=== PATIENT | male | born 1935 | race Caucasian/White ===

== ENCOUNTER → 2016-09-11 | Outpatient (CLI) | payer MEDICARE ==
[~2016-09-11] MED LIST: ALBUAER3 INH; AMIO200 PO; AMIO200T PO; AMLO5TAB22 PO; ASPI325T PO; AZIT250T3 PO; CARV3.125 PO; CEPH500 PO; FERR1TAB36 PO; FERR324T4 PO; FURO1TAB60 PO; FURO40TA PO; GLEE100T PO; GLEE400T2 PO; GLIP5 PO; GLIP5TAB8 PO; INSU-118 SQ; IPRA.5I INH; LEVA750T PO; LOSA50TA PO; LOVA20TA PO; NOVOLOGSS SQ; PRED10 PO; PRED10PA PO
[2016-09-11 13:41] LABS: ALKALINE PHOSPHATASE 38 U/L (45-117); ALT (GPT) 23 U/L (12-78); TOTAL BILIRUBIN ADULT 0.4 MG/DL (0.2-1.0)
[2016-09-11 13:50] LABS: ANION GAP 5 MEQ/L (5-15); AST (GOT) 26 U/L (15-37); BICARBONATE 27.5 MEQ/L (21.0-32.0); BLOOD UREA NITROGEN 33 MG/DL (7-18); CHLORIDE 110 MEQ/L (98-107); GLOMERULAR FILTRATION RATE 24 ML/MIN (>89); GLUCOSE,FASTING 100 MG/DL (74-99); POTASSIUM 4.9 MEQ/L (3.5-5.1); SODIUM (NA) 142 MEQ/L (136-145)
== END ==
LOC: PLAB 08:36
PROVIDERS: ATTEND Nuclear Medicine Nuclear Cardiology
DX: E78.5 Hyperlipidemia, unspecified (principal); I10 Essential (primary) hypertension; E07.9 Disorder of thyroid, unspecified; I47.2 Ventricular tachycardia
CPT/HCPCS: 36415; 80053; 84439

== ENCOUNTER 2016-12-31 11:40 | Emergency (ER) | payer MEDICARE ==
[~2016-12-31] VITALS: Ht 172.7 cm; Wt 95.0 kg
[~2016-12-31 11:40] MED LIST changes: -ALBUAER3 INH; -AMIO200T PO; -AZIT250T3 PO; -FERR1TAB36 PO; -FURO1TAB60 PO; -GLEE100T PO; -GLIP5TAB8 PO; -PRED10 PO
[2016-12-31 11:45] VITALS: BP 128/66; PULSE 65; RESP 16; TEMP 97.7; O2SAT 94
[2016-12-31 12:30] LABS: AUTOMATED NEUTROPHIL # 5.3 TH/MM3 (1.8-7.7); BASOPHIL % 0.2 % (0.0-2.0); EOSINOPHIL # 0.2 TH/MM3 (0-0.4); EOSINOPHIL % 2.6 % (0.0-4.0); HEMATOCRIT 28.8 % (39.0-51.0); HEMO FLAGS DIFF FINAL; LYMPH % 32.6 % (9.0-44.0); LYMPHOCYTE # 3.1 TH/MM3 (1.0-4.8); MEAN CELL VOLUME 99.9 FL (80.0-100.0); MEAN CORPUSCULAR HEMOGLOBIN 34.2 PG (27.0-34.0); MEAN CORPUSCULAR HGB CONC 34.2 % (32.0-36.0); MONO % 8.4 % (0.0-8.0); NEUT % 56.2 % (16.0-70.0); PLATELET COUNT 206 TH/MM3 (150-450); RED BLOOD COUNT 2.89 MIL/MM3 (4.50-5.90); RED CELL DISTRIBUTION WIDTH 19.3 % (11.6-17.2); WHITE BLOOD COUNT 9.4 TH/MM3 (4.0-11.0)
[2016-12-31 12:43] LABS: INTERNATIONAL NORMALIZED RATIO 0.9 RATIO; PROTHROMBIN TIME - PATIENT 10.4 SEC (9.8-11.6)
[2016-12-31 12:47] LABS: ANION GAP 6 MEQ/L (5-15); BICARBONATE 29.8 MEQ/L (21.0-32.0); BLOOD UREA NITROGEN 33 MG/DL (7-18); CHLORIDE 105 MEQ/L (98-107); GLOMERULAR FILTRATION RATE 23 ML/MIN (>89); POTASSIUM 4.1 MEQ/L (3.5-5.1); SODIUM (NA) 141 MEQ/L (136-145)
--- NOTE | 2016-12-31 12:48 | RADRPT ---
EXAM DATE/TIME: 12/31/2016 12:27 [facility] COMPARISON: CHEST SINGLE AP, May 21, 2016, 9:40. INDICATIONS : Chest pains with pressure into upper abdomenx2 months. MEDICAL HISTORY : Myocardial infarction. Carcinoma, basal cell. SURGICAL HISTORY : Pacemaker. ENCOUNTER: Initial ACUITY: 2 months PAIN SCORE: 7/10 LOCATION: Bilateral chest FINDINGS: A single view of the chest demonstrates minimal right basilar atelectasis. Heart mildly enlarged. Lef t-sided defibrillator unchanged. Osseous structures are intact. CONCLUSION: 1. Minimal right basal atelectasis. 2. Lungs are better aerated on current study. Johnny Baron MD on December 31, 2016 at 12:44 Board Certified Radiologist. This report was verified electronically.
[2016-12-31 12:50] LABS: CREATINE KINASE 187 U/L (39-308)
--- NOTE | 2016-12-31 12:57 | PD ---
HPI Chief Complaint: Chest Pain Time Seen by Provider: 12:51 Travel History International Travel<30 days: No Contact w/Intl Traveler<30days: No Traveled to known affect area: No History of Present Illness HPI 81-year-old male that presents to the ED for evaluation of chest pain and abdominal pain. Per patient she's had this chest pain and abdominal pain for a couple months but has been worsening today. Patient is also having coughing and having some congestion issues for the weekend and he believes that this is likely aggravating the symptoms. Patient does have a significant history including CML, previous MIs with pacemaker, diabetes, hypertension, sleep apnea and COPD. Patient denies any other medical issues. Patient denies any increased swelling. She denies any urinary or bowel movement issues. Per patient the pain on the abdomen has been ongoing for a couple 6 months now but recently has been felt like it is getting worse. Patient states that he has not had any surgeries to his abdomen. Nothing makes it better or worse. Per patient pain is not constant. Per patient the pain in his chest is more on the abdomen and he points to the epigastric area most of the pain. He takes aspirin and no other blood thinner. Patient follows with Dr. Pelayo for cardiology as well as Dr. Sood for the CML. He has no allergies to medication. No other medical issues at this time. Has not taken anything for this. Per patient's his discomfort 6 out of 10. More on the epigastric area. PFSH Past Medical History Arthritis: No Asthma: No Autoimmune Disease: No Blood Disorders: No Anxiety: No Depression: No Heart Rhythm Problems: No Cancer: Yes ( (CML) LEUKEMIA/SKIN) Cardiovascular Problems: Yes ([place]) High Cholesterol: No Chemotherapy: Yes Chest Pain: Yes Congestive Heart Failure: Yes COPD: Yes Cerebrovascular Accident: No Diabetes: Yes Diminished Hearing: Yes Endocrine: No GERD: Yes Glaucoma: No Genitourinary: No Headaches: Yes Hepatitis: No Hiatal Hernia: No Hypertension: Yes Immune Disorder: No Kidney Stones: Yes Musculoskeletal: No Neurologic: No Psychiatric: No Reproductive: No Respiratory: Yes (EMPHYSEMA) Immunizations Current: No Migraines: Yes Myocardial Infarction: No Radiation Therapy: Yes Renal Failure: No Seizures: No Sickle Cell Disease: No Sleep Apnea: Yes Thyroid Disease: No Ulcer: No Past Surgical History Abdominal Surgery: No AICD: No Appendectomy: No Arteriovenous Shunt: No Cardiac Surgery: No Cholecystectomy: No Ear Surgery: No Endocrine Surgery: No Eye Surgery: No (CATARACT X3 YEARS AGO. RIGHT EYE REPAIRED LAST WK DUE TO NOT BE ABLE TO SEE) Genitourinary Surgery: No Gynecologic Surgery: No Insulin Pump: No Joint Replacement: No Oral Surgery: Yes Pacemaker: No Thoracic Surgery: Yes (LUNG BIOPSY) Other Surgery: Yes (SKIN CA EXCISION) Family History Family Hypercholesterolemia: Yes Social History Alcohol Use: No Tobacco Use: No (quit 1993) Substance Use: No Allergies-Medications (Allergen,Severity, Reaction): Coded Allergies: No Known Allergies (Verified , 09/19/15) Reported Meds & Prescriptions Reported Meds & Active Scripts Active Proair Hfa 8.5 GM Inh (Albuterol Sulfate) 90 Mcg/Act Aer 2 Puff INH Q4-6H PRN 108 mcg/actuation Azithromycin 250 Mg Tab 250 Mg PO DIRECTED Take 2 tabs (500 mg) on day 1 then 1 tab daily x 4 days. Reported Prednisone 10 Mg Tab 10 Mg PO DAILY PRN Novolog Inj (Insulin Aspart) 100 Unit/Ml Inj SQ ACHS SLIDING SCALE Amiodarone (Amiodarone HCl) 200 Mg Tab 200 Mg PO DAILY Coreg (Carvedilol) 3.125 Mg Tab 3.125 Mg PO BID Aspirin 325 Mg Tab 325 Mg PO DAILY Iron (Ferrous Sulfate) 325 Mg Tab 325 Mg PO BID Take after a meal. Lovastatin 20 Mg Tab 20 Mg PO DAILY Glipizide 5 Mg Tab 5 Mg PO DAILY Take 30 minutes before a meal Lasix (Furosemide) 40 Mg Tab 40 Mg PO DAILY Gleevec (Imatinib Mesylate) 100 Mg Tab 400 Mg PO DAILY Review of Systems Except as stated in HPI: all other systems reviewed are Neg Physical Exam Narrative GENERAL: SKIN: Warm and dry. HEAD: Atraumatic. Normocephalic. EYES: Pupils equal and round. No scleral icterus. No injection or drainage. ENT: No nasal bleeding or discharge. Mucous membranes pink and moist. Tongue is midline. No uvula deviation. NECK: Trachea midline. No JVD. CARDIOVASCULAR: Regular rate and rhythm. No murmurs, S3, S4. RESPIRATORY: No accessory muscle use. Expiratory rales heard on exam. Breath sounds equal bilaterally. GASTROINTESTINAL: Abdomen soft, tender to palpation especially with deep palpation in the epigastric area as well as the right upper quadrant, nondistended. Hepatic and splenic margins not palpable. MUSCULOSKELETAL: Extremities without clubbing, cyanosis, or edema. No obvious deformities. Full range of motion of the upper and lower extremities bilaterally. 2+ pulses bilaterally. NEUROLOGICAL: Awake and alert. No obvious cranial nerve deficits. Motor grossly within normal limits. Five out of 5 muscle strength in the arms and legs. Normal speech. PSYCHIATRIC: Appropriate mood and affect; insight and judgment normal. Data Data Last Documented VS Vital Signs Date Time Temp Pulse Resp B/P Pulse Ox O2 Delivery O2 Flow Rate FiO2 12/31/16 12:55 94 Room Air 12/31/16 11:45 97.7 65 16 128/66 Orders Electrocardiogram (12/31/16 11:47) Complete Blood Count With Diff (12/31/16 11:47) Basic Metabolic Panel (Bmp) (12/31/16 11:47) Ckmb (Isoenzyme) Profile (12/31/16 11:47) Troponin I (12/31/16 11:47) Chest, Single Ap (12/31/16 11:47) Iv Access Insert/Monitor (12/31/16 11:47) Ecg Monitoring (12/31/16 11:47) Oxygen Administration (12/31/16 11:47) Oximetry (12/31/16 11:47) Prothrombin Time / Inr (Pt) (12/31/16 11:47) B-Type Natriuretic Peptide (12/31/16 11:47) Hepatic Functional Panel (12/31/16 12:47) Lipase (12/31/16 12:47) Albuterol Neb (Albuterol Neb) (12/31/16 13:00) CKMB (12/31/16 12:03) CKMB% (12/31/16 12:03) Ct Abd/Pel W/O Iv Contrast (12/31/16 ) Labs Laboratory Tests Test 12/31/16 12:03 White Blood Count 9.4 TH/MM3 Red Blood Count 2.89 MIL/MM3 Hemoglobin 9.9 GM/DL Hematocrit 28.8 % Mean Corpuscular Volume 99.9 FL Mean Corpuscular Hemoglobin 34.2 PG Mean Corpuscular Hemoglobin 34.2 % Concent Red Cell Distribution Width 19.3 % Platelet Count 206 TH/MM3 Mean Platelet Volume 7.4 FL Neutrophils (%) (Auto) 56.2 % Lymphocytes (%) (Auto) 32.6 % Monocytes (%) (Auto) 8.4 % Eosinophils (%) (Auto) 2.6 % Basophils (%) (Auto) 0.2 % Neutrophils # (Auto) 5.3 TH/MM3 Lymphocytes # (Auto) 3.1 TH/MM3 Monocytes # (Auto) 0.8 TH/MM3 Eosinophils # (Auto) 0.2 TH/MM3 Basophils # (Auto) 0.0 TH/MM3 CBC Comment DIFF FINAL Differential Comment Prothrombin Time 10.4 SEC Prothromb Time International 0.9 RATIO Ratio Sodium Level 141 MEQ/L Potassium Level 4.1 MEQ/L Chloride Level 105 MEQ/L Carbon Dioxide Level 29.8 MEQ/L Anion Gap 6 MEQ/L Blood Urea Nitrogen 33 MG/DL Creatinine 2.65 MG/DL Estimat Glomerular Filtration 23 ML/MIN Rate Random Glucose 66 MG/DL Calcium Level 8.4 MG/DL Total Bilirubin 0.3 MG/DL Direct Bilirubin 0.1 MG/DL Indirect Bilirubin 0.2 MG/DL Aspartate Amino Transf 40 U/L (AST/SGOT) Alanine Aminotransferase 43 U/L (ALT/SGPT) Alkaline Phosphatase 40 U/L Total Creatine Kinase 187 U/L Creatine Kinase MB 3.2 NG/ML Troponin I 0.04 NG/ML B-Type Natriuretic Peptide 61 PG/ML Total Protein 6.8 GM/DL Albumin 3.5 GM/DL Lipase 368 U/L [facility] Medical Decision Making Medical Screen Exam Complete: Yes Emergency Medical Condition: Yes Medical Record Reviewed: Yes Interpretation(s) CBC & BMP Diagram 12/31/16 12:03 LFTs WNL troponin WNL CKMB WNL Last Impressions Chest X-Ray 12/31/16 1147 Signed Impressions: Service Date/Time: Saturday, December 31, 2016 12:27 - CONCLUSION: 1. Minimal right basal atelectasis. 2. Lungs are better aerated on current study. Johnny Baron MD CT abd negative other than AAA of 3.5 cm EKG shows sinus rhythm with no sign of acute ischemia or arrhythmia read by me and attending. Lipase within normal limits Differential Diagnosis Abdominal pain versus chronic abdominal pain versus STEMI versus an STEMI versus chest pain versus a typical chest pain versus pancreatitis versus COPD versus acute on chronic pain Narrative Course 81-year-old male that presents to the ED for evaluation of chest pain and epigastric pain. Patient was properly examined and was found to have signs and symptoms of unclear etiology. Patient partially has multiple comorbidities and disease. This time I recommend labs and imaging. Patient is in agreement with this plan. Patient was given a breathing treatment here secondary to his wheezing/rales. Patient took an aspirin today. Labs and imaging showed no sign of acute disease. My attending Dr. Weiss evaluated the patient with me and was now off all findings and imaging and agrees the patient can be discharged home. Patient was discharged home with albuterol inhaler, azithromycin to cover for infection etiology for his new onset of cough. Most of his symptoms appeared to be chronic. Do recommend close follow-up with Dr. Pelayo as well as Dr. Sood primary care doctor for the aneurysm. See ED worsening symptoms. Diagnosis Primary Impression: Bronchitis Additional Impression: Atypical chest pain Patient Instructions: General Instructions Additional Instructions: Take medications as prescribed. Follow-up with your doctor this week. Especially with tax technician Dr. Pelayo. See ED for worsening symptoms. Take Tylenol for pain as needed. Your CT here show an aneurysm on your abdomen that is 3.5 cm. Please follow-up with your doctor for this as this will likely need monitoring and better treatment of your diabetes and hypertension. Med/Other Pt SpecificInfo: Prescription(s) given Scripts Albuterol 8.5 GM Inh (Proair Hfa 8.5 GM Inh)90 Mcg/Act Aer2 Puff INH Q4-6H PRN ( SHORTNESS OF BREATH) #1 INHALER 108 mcg/actuation Prov:Flip Candelaria MD 12/31/16 Azithromycin 250 Mg [id number] Mg PO DIRECTED #6 TAB Take 2 tabs (500 mg) on day 1 then 1 tab daily x 4 days. Prov:Flip Candelaria MD 12/31/16 Disposition: 01 DISCHARGE HOME Condition: Stable Jacinto Mejia December 31, 2016 12:57
[2016-12-31] MEDS ORDERED: RESP: ALBUTEROL 2.5 MG/3 ML NEB (SCH) INH ONE (13:00)
[2016-12-31 13:03] LABS: CKMB 3.2 NG/ML (0.5-3.6)
[2016-12-31] MEDS ORDERED: GLEE100T PO (13:24)
[2016-12-31] MEDS ORDERED: FURO1TAB60 PO (13:24)
[2016-12-31] MEDS ORDERED: NOVOLOGSS SQ (13:24)
[2016-12-31] MEDS ORDERED: ASPI325T PO (13:24)
[2016-12-31] MEDS ORDERED: CARV3.125 PO (13:24)
[2016-12-31] MEDS ORDERED: AMIO200T PO (13:24)
[2016-12-31] MEDS ORDERED: LOVA20TA PO (13:24)
[2016-12-31] MEDS ORDERED: FERR1TAB36 PO (13:24)
[2016-12-31] MEDS ORDERED: GLIP5TAB8 PO (13:24)
[2016-12-31] MEDS ORDERED: PRED10 PO (13:27)
[2016-12-31 13:32] LABS: INDIRECT BILIRUBIN 0.2 MG/DL (0.0-0.8); TOTAL BILIRUBIN ADULT 0.3 MG/DL (0.2-1.0)
--- NOTE | 2016-12-31 14:06 | RADRPT ---
EXAM DATE/TIME: 12/31/2016 13:38 [facility] COMPARISON: No previous studies available for comparison. INDICATIONS : Generalized abdominal pain. ORAL CONTRAST: No oral contrast ingested. RADIATION DOSE: 15.95 CTDIvol (mGy) MEDICAL HISTORY : Cardiovascular disease. Hypertension. Leukemia.Diabetes, CHF, SURGICAL HISTORY : Pacemaker. ENCOUNTER: Initial ACUITY: 1 day PAIN SCALE: 3/10 LOCATION: TECHNIQUE: Volumetric scanning of the abdomen and pelvis was performed. Using automated exposure control and ad justment of the mA and/or kV according to patient size, radiation dose was kept as low as reasonably achievable to obtain optimal diagnostic quality images. FINDINGS: LOWER LUNGS: There is minimal scarring at the right lung base. LIVER: Homogeneous density without lesion. There is no dilation of the biliary tree. The tiny gallstones.. SPLEEN: Normal size without lesion. PANCREAS: Within normal limits. KIDNEYS: Normal in size and shape. There is no mass, stone, or hydronephrosis. ADRENAL GLANDS: Within normal limits. VASCULAR: Dense atherosclerotic calcifications involving abdominal aorta and branch vessels. Mild aneurysmal di latation of the distal abdominal aorta to a diameter of 3.5 cm. BOWEL/MESENTERY: Distal colonic diverticulosis. No abnormal dilatation, wall thickening or inflammatory change. No ani e fluid. ABDOMINAL WALL: Within normal limits. RETROPERITONEUM: There is no lymphadenopathy. BLADDER: No wall thickening or mass. REPRODUCTIVE: Within normal limits. INGUINAL: There is no lymphadenopathy or hernia. MUSCULOSKELETAL: Within normal limits for patient age. CONCLUSION: 3.5 cm abdominal aortic aneurysm. Tiny gallstones. Colonic diverticulosis. No definite acute CT findings. Alli Teague MD on December 31, 2016 at 13:58 Board Certified Radiologist. This report was verified electronically.
[2016-12-31] MEDS ORDERED: AZIT250T3 PO (14:14)
[2016-12-31] MEDS ORDERED: ALBUAER3 INH (14:14)
--- NOTE | 2016-12-31 14:30 | PD ---
Data Data Last Documented VS Vital Signs Date Time Temp Pulse Resp B/P Pulse Ox O2 Delivery O2 Flow Rate FiO2 12/31/16 12:55 94 Room Air 12/31/16 11:45 97.7 65 16 128/66 Orders Electrocardiogram (12/31/16 11:47) Complete Blood Count With Diff (12/31/16 11:47) Basic Metabolic Panel (Bmp) (12/31/16 11:47) Ckmb (Isoenzyme) Profile (12/31/16 11:47) Troponin I (12/31/16 11:47) Chest, Single Ap (12/31/16 11:47) Iv Access Insert/Monitor (12/31/16 11:47) Ecg Monitoring (12/31/16 11:47) Oxygen Administration (12/31/16 11:47) Oximetry (12/31/16 11:47) Prothrombin Time / Inr (Pt) (12/31/16 11:47) B-Type Natriuretic Peptide (12/31/16 11:47) Hepatic Functional Panel (12/31/16 12:47) Lipase (12/31/16 12:47) Albuterol Neb (Albuterol Neb) (12/31/16 13:00) CKMB (12/31/16 12:03) CKMB% (12/31/16 12:03) Ct Abd/Pel W/O Iv Contrast (12/31/16 ) Labs Laboratory Tests Test 12/31/16 12:03 White Blood Count 9.4 TH/MM3 Red Blood Count 2.89 MIL/MM3 Hemoglobin 9.9 GM/DL Hematocrit 28.8 % Mean Corpuscular Volume 99.9 FL Mean Corpuscular Hemoglobin 34.2 PG Mean Corpuscular Hemoglobin 34.2 % Concent Red Cell Distribution Width 19.3 % Platelet Count 206 TH/MM3 Mean Platelet Volume 7.4 FL Neutrophils (%) (Auto) 56.2 % Lymphocytes (%) (Auto) 32.6 % Monocytes (%) (Auto) 8.4 % Eosinophils (%) (Auto) 2.6 % Basophils (%) (Auto) 0.2 % Neutrophils # (Auto) 5.3 TH/MM3 Lymphocytes # (Auto) 3.1 TH/MM3 Monocytes # (Auto) 0.8 TH/MM3 Eosinophils # (Auto) 0.2 TH/MM3 Basophils # (Auto) 0.0 TH/MM3 CBC Comment DIFF FINAL Differential Comment Prothrombin Time 10.4 SEC Prothromb Time International 0.9 RATIO Ratio Sodium Level 141 MEQ/L Potassium Level 4.1 MEQ/L Chloride Level 105 MEQ/L Carbon Dioxide Level 29.8 MEQ/L Anion Gap 6 MEQ/L Blood Urea Nitrogen 33 MG/DL Creatinine 2.65 MG/DL Estimat Glomerular Filtration 23 ML/MIN Rate Random Glucose 66 MG/DL Calcium Level 8.4 MG/DL Total Bilirubin 0.3 MG/DL Direct Bilirubin 0.1 MG/DL Indirect Bilirubin 0.2 MG/DL Aspartate Amino Transf 40 U/L (AST/SGOT) Alanine Aminotransferase 43 U/L (ALT/SGPT) Alkaline Phosphatase 40 U/L Total Creatine Kinase 187 U/L Creatine Kinase MB 3.2 NG/ML Troponin I 0.04 NG/ML B-Type Natriuretic Peptide 61 PG/ML Total Protein 6.8 GM/DL Albumin 3.5 GM/DL Lipase 368 U/L MDM Supervised Visit with ROXANNA: Yes Narrative Course The history, exam, and medical decision-making in the associated mid-level provider note were completed with my assistance. I reviewed and agree with the findings presented. I attest that I had a [id number] encounter with the patient on the same day, and personally performed and documented my assessment and findings in the medical record. *My assessment and Findings: 81-year-old man, presents with abdominal pain in the setting of URI and cough. The bowel pain is been ongoing for some time but worse over the past couple days. Exam was fairly benign. He said diverticulitis before. He's had some constipation in the past but had abdominal with this morning it was fairly normal. No diarrhea. One episode of vomiting earlier. was sick with cough cold symptoms. Looks well now. He has a known small AAA. We'll recommend outpatient follow-up. Diagnosis Primary Impression: Bronchitis Additional Impression: Atypical chest pain Patient Instructions: General Instructions Additional Instruction: Take medications as prescribed. Follow-up with your doctor this week. Especially with edge runner Dr. Pelayo. See ED for worsening symptoms. Take Tylenol for pain as needed. Your CT here show an aneurysm on your abdomen that is 3.5 cm. Please follow-up with your doctor for this as this will likely need monitoring and better treatment of your diabetes and hypertension. Scripts Albuterol 8.5 GM Inh (Proair Hfa 8.5 GM Inh)90 Mcg/Act Aer2 Puff INH Q4-6H PRN ( SHORTNESS OF BREATH) #1 INHALER 108 mcg/actuation Prov:Flip Candelaria MD 12/31/16 Azithromycin 250 Mg [id number] Mg PO DIRECTED #6 TAB Take 2 tabs (500 mg) on day 1 then 1 tab daily x 4 days. Prov:Flip Candelaria MD 12/31/16 Disposition: 01 DISCHARGE HOME Condition: Stable Flip Candelaria MD December 31, 2016 14:30
[2016-12-31 15:26] VITALS: BP 127/62; PULSE 60; RESP 16; O2SAT 96
--- NOTE | 2016-12-31 20:04 | EKG ---
Date Performed: 12/31/2016 Time Performed: 11:56:16 PTAGE: 81 years EKG: SINUS BRADYCARDIA MARKED LEFT AXIS DEVIATION LEFT BUNDLE BRANCH BLOCK ABNORMAL ECG PREVIOUS TRACING : 05/22/2016 03.34 Compared to the previous tracing rate slower DOCTOR: Maggie Rosas Interpretating Date/Time 12/31/2016 20:03:43
== END 2016-12-31 15:35 | disposition home or self-care (01) ==
LOC: NEPE 11:40
DX: J40 Bronchitis, not specified as acute or chronic (principal); R07.89 Other chest pain; J43.9 Emphysema, unspecified; I10 Essential (primary) hypertension; E11.9 Type 2 diabetes mellitus without complications; I50.9 Heart failure, unspecified; C92.10 Chronic myeloid leukemia, BCR/ABL-positive, not having achieved remission; Z79.899 Other long term (current) drug therapy; Z79.82 Long term (current) use of aspirin; Z79.4 Long term (current) use of insulin; Z87.442 Personal history of urinary calculi
CPT/HCPCS: 71010; 74176; 80048; 80076; 82550; 82552; 83690; 83880; 84484; 85025; 85610; 93005; 94664; 99285; J7613

== ENCOUNTER → 2017-01-16 | Outpatient (CLI) | payer MEDICARE ==
[~2017-01-16] MED LIST changes: +ALBUAER3 INH; +AMIO200T PO; +AZIT250T3 PO; +FERR1TAB36 PO; +FURO1TAB60 PO; +GLEE100T PO; +GLIP5TAB8 PO; +PRED10 PO
[2017-01-16 13:37] LABS: ANION GAP 9 MEQ/L (5-15); BICARBONATE 27.1 MEQ/L (21.0-32.0); BLOOD UREA NITROGEN 21 MG/DL (7-18); CHLORIDE 107 MEQ/L (98-107); POTASSIUM 4.3 MEQ/L (3.5-5.1); SODIUM (NA) 143 MEQ/L (136-145)
[2017-01-16 13:38] LABS: AST (GOT) 32 U/L (15-37); GLOMERULAR FILTRATION RATE 28 ML/MIN (>89); GLUCOSE,FASTING 109 MG/DL (74-99)
[2017-01-16 13:45] LABS: ALKALINE PHOSPHATASE 40 U/L (45-117); ALT (GPT) 23 U/L (12-78); HDL CHOLESTEROL 35.3 MG/DL (40.0-60.0); LDL CHOLESTEROL 63 MG/DL (0-99); TOTAL BILIRUBIN ADULT 0.4 MG/DL (0.2-1.0)
[2017-01-16 14:08] LABS: MICRO ALBUMIN RANDOM URINE RAW 6.4 MG/L (0.0-30.0)
[2017-01-16 19:26] LABS: HEMOGLOBIN A1a 1.5 %; HEMOGLOBIN A1b 2.2 %; HEMOGLOBIN LA1C 2.2 %; HEMOGLOBIN P3 6.2 %
== END ==
LOC: PLAB 08:27
PROVIDERS: ATTEND Family Medicine
DX: E78.5 Hyperlipidemia, unspecified (principal); E11.9 Type 2 diabetes mellitus without complications
CPT/HCPCS: 36415; 80053; 80061; 82043; 83036

== ENCOUNTER → 2017-04-01 | Outpatient (CLI) | payer MEDICARE ==
[~2017-04-01] MED LIST changes: -AMIO200 PO; -AMLO5TAB22 PO; -CEPH500 PO; -FERR324T4 PO; -FURO40TA PO; -GLEE400T2 PO; -GLIP5 PO; -INSU-118 SQ; -IPRA.5I INH; -LEVA750T PO; -LOSA50TA PO; -PRED10PA PO
[2017-04-01 18:10] LABS: HEMOGLOBIN A1a 1.1 %; HEMOGLOBIN A1b 1.8 %; HEMOGLOBIN Ao 84.9 %; HEMOGLOBIN LA1C 2.1 %; HEMOGLOBIN P3 5.6 %
[2017-04-01 18:28] LABS: MICRO ALBUMIN RANDOM URINE RAW 18.9 MG/L (0.0-30.0)
== END ==
LOC: PLAB 08:38
PROVIDERS: ATTEND Family Medicine
DX: E11.9 Type 2 diabetes mellitus without complications (principal)
CPT/HCPCS: 36415; 82043; 83036

== ENCOUNTER 2017-06-08 07:43 | Observation (INO) | payer MEDICARE ==
[2017-06-08] VITALS (7 sets, daily range): BP systolic 130–149; BP diastolic 63–67; PULSE 45–55; RESP 16–18; TEMP 97.5–98; O2SAT 93–100
[~2017-06-08] VITALS: Ht 177.8 cm; Wt 96.0 kg
[2017-06-08] MEDS ORDERED: LOSA25TA PO (07:55)
[2017-06-08] MEDS ORDERED: MORPHINE SULFATE 4 MG/ML INJ IV PUSH ONE ×2 (08:00→10:15)
[2017-06-08] MEDS ORDERED: ONDANSETRON HCL 4 MG/2 ML VIAL IV PUSH ONE (08:00)
--- NOTE | 2017-06-08 08:07 | PD ---
HPI Chief Complaint: Pain: Acute or Chronic Time Seen by Provider: 07:47 Travel History International Travel<30 days: No Contact w/Intl Traveler<30days: No Traveled to known affect area: No History of Present Illness HPI The patient is a 82-year-old male who presents to the emergency department via EMS for right hip pain. The patient states he developed right hip pain several days ago while watching TV. The hip pain has progressed, is worsen movement, but is present at rest. He has spasms located lateral aspect of the right hip. He denies any trauma or falls recently. He is able to bear weight, however, this morning was unable to get out of the chair and ambulate secondary to the pain. He denies any previous history of pelvic fractures or hip fractures. The patient does have a history of CML. He denies any known history of pathologic fractures. He denies any numbness or tingling of the right lower extremity. Patient's symptoms are moderate, exacerbated by movement weightbearing, and there are no current alleviating factors. PFSH Past Medical History Arthritis: No Asthma: No Autoimmune Disease: No Blood Disorders: No Anxiety: No Depression: No Heart Rhythm Problems: No Cancer: Yes ( (CML) LEUKEMIA/SKIN) Cardiovascular Problems: Yes High Cholesterol: No Chemotherapy: Yes Chest Pain: Yes Congestive Heart Failure: Yes COPD: Yes Cerebrovascular Accident: No Diabetes: Yes Patient Takes Glucophage: Yes Diminished Hearing: No Endocrine: No GERD: Yes Glaucoma: No Genitourinary: No Headaches: Yes Hepatitis: No Hiatal Hernia: No Hypertension: Yes Immune Disorder: No Kidney Stones: Yes Medical other: Yes (reflux) Musculoskeletal: No Neurologic: No Psychiatric: No Reproductive: No Respiratory: Yes (EMPHYSEMA) Immunizations Current: No Migraines: Yes Myocardial Infarction: No Radiation Therapy: Yes Renal Failure: No Seizures: No Sickle Cell Disease: No Sleep Apnea: Yes Thyroid Disease: No Ulcer: No Past Surgical History Abdominal Surgery: No AICD: No Appendectomy: No Arteriovenous Shunt: No Cardiac Surgery: No Cholecystectomy: No Ear Surgery: No Endocrine Surgery: No Eye Surgery: Yes (CATARACT X3 YEARS AGO. RIGHT EYE REPAIRED LAST WK DUE TO NOT BE ABLE TO SEE) Genitourinary Surgery: No Gynecologic Surgery: No Insulin Pump: No Joint Replacement: No Oral Surgery: Yes Pacemaker: No Thoracic Surgery: Yes (LUNG BIOPSY) Other Surgery: Yes (SKIN CA EXCISION) Family History Family Hypercholesterolemia: Yes Social History Alcohol Use: No Tobacco Use: No Substance Use: No Allergies-Medications (Allergen,Severity, Reaction): Coded Allergies: No Known Allergies (Verified , 09/19/15) Reported Meds & Prescriptions Reported Meds & Active Scripts Active Proair Hfa 8.5 GM Inh (Albuterol Sulfate) 90 Mcg/Act Aer 2 Puff INH Q4-6H PRN 108 mcg/actuation Reported Losartan (Losartan Potassium) 25 Mg Tab 25 Mg PO DAILY Prednisone 10 Mg Tab 10 Mg PO DAILY PRN Amiodarone (Amiodarone HCl) 200 Mg Tab 200 Mg PO DAILY Coreg (Carvedilol) 3.125 Mg Tab 3.125 Mg PO BID Aspirin 325 Mg Tab 325 Mg PO DAILY Lovastatin 20 Mg Tab 20 Mg PO DAILY Glipizide 5 Mg Tab 5 Mg PO DAILY Take 30 minutes before a meal Lasix (Furosemide) 40 Mg Tab 40 Mg PO DAILY Gleevec (Imatinib Mesylate) 100 Mg Tab 400 Mg PO DAILY Review of Systems Except as stated in HPI: all other systems reviewed are Neg General / Constitutional: No: Fever Cardiovascular: No: Chest Pain or Discomfort Respiratory: No: Shortness of Breath Gastrointestinal: No: Nausea, Vomiting, Abdominal Pain Musculoskeletal: Positive: Limited ROM, Edema, Pain Neurologic: No: Paresthesia, Sensory Disturbance Physical Exam Narrative GENERAL: Awake, alert, pleasant 82-year-old male who appears his stated age and is in no acute respiratory distress. SKIN: Focused skin assessment warm/dry. HEAD: Atraumatic. Normocephalic. EYES: No injection or drainage. ENT: No nasal bleeding or discharge. Mucous membranes pink and moist. NECK: Trachea midline. No JVD. CARDIOVASCULAR: Regular rate and rhythm. No murmur appreciated. RESPIRATORY: No accessory muscle use. Clear to auscultation. Breath sounds equal bilaterally. GASTROINTESTINAL: Abdomen soft, non-tender, nondistended. No rebound tenderness. MUSCULOSKELETAL: No obvious deformities. Tenderness to palpation lateral aspect of the right hip. Doppler dorsalis pedal pulse on the right present. Pitting edema the lower exam is bilaterally. Limited ability to flex the hip and knee on the right secondary to pain. Back: No tenderness of the midline of the thoracic or lumbar vertebrae. No tenderness of the right sacroiliac. NEUROLOGICAL: Awake and alert. No obvious cranial nerve deficits. Motor grossly within normal limits. Normal speech. Sensation is intact of the medial , lateral, dorsal aspect of the right foot. PSYCHIATRIC: Appropriate mood and affect; insight and judgment normal. Data Data Last Documented VS Vital Signs Date Time Temp Pulse Resp B/P (MAP) Pulse Ox O2 Delivery O2 Flow Rate FiO2 06/08/17 07:50 52 17 06/08/17 07:48 97.7 143/65 (91) 93 Orders Orders Hip, Uni(Ap&Lat) W Ap Pelvis (06/08/17 ) Morphine Inj (Morphine Inj) (06/08/17 08:00) Ondansetron Inj (Zofran Inj) (06/08/17 08:00) Complete Blood Count With Diff (06/08/17 08:07) Comprehensive Metabolic Panel (06/08/17 08:07) Ct Pelvis W/O Iv Contrast (06/08/17 ) Ketorolac Inj (Toradol Inj) (06/08/17 08:45) Labs Laboratory Tests Test 06/08/17 08:15 White Blood Count 6.7 TH/MM3 Red Blood Count 2.74 MIL/MM3 Hemoglobin 10.2 GM/DL Hematocrit 29.7 % Mean Corpuscular Volume 108.4 FL Mean Corpuscular Hemoglobin 37.3 PG Mean Corpuscular Hemoglobin Concent 34.4 % Red Cell Distribution Width 14.7 % Platelet Count 225 TH/MM3 Mean Platelet Volume 7.7 FL Neutrophils (%) (Auto) 53.8 % Lymphocytes (%) (Auto) 32.8 % Monocytes (%) (Auto) 7.7 % Eosinophils (%) (Auto) 4.7 % Basophils (%) (Auto) 1.0 % Neutrophils # (Auto) 3.6 TH/MM3 Lymphocytes # (Auto) 2.2 TH/MM3 Monocytes # (Auto) 0.5 TH/MM3 Eosinophils # (Auto) 0.3 TH/MM3 Basophils # (Auto) 0.1 TH/MM3 CBC Comment DIFF FINAL Differential Comment Blood Urea Nitrogen 34 MG/DL Creatinine 2.96 MG/DL Random Glucose 138 MG/DL Total Protein 6.5 GM/DL Albumin 3.4 GM/DL Calcium Level 8.4 MG/DL Alkaline Phosphatase 37 U/L Aspartate Amino Transf (AST/SGOT) 33 U/L Alanine Aminotransferase (ALT/SGPT) 36 U/L Total Bilirubin 0.4 MG/DL Sodium Level 140 MEQ/L Potassium Level 4.1 MEQ/L Chloride Level 107 MEQ/L Carbon Dioxide Level 25.3 MEQ/L Anion Gap 8 MEQ/L Estimat Glomerular Filtration Rate 21 ML/MIN [facility] Medical Decision Making Medical Screen Exam Complete: Yes Emergency Medical Condition: Yes Medical Record Reviewed: Yes Interpretation(s) Last Impressions Hip and Pelvis X-Ray 06/08/17 0000 Signed Impressions: Service Date/Time: Thursday, June 08, 2017 08:24 - CONCLUSION: 1. No acute fracture or dislocation. 2. Degenerative changes involving the hips and lower lumbar spine. Max Briggs MD Laboratory Tests Test 06/08/17 08:15 White Blood Count 6.7 TH/MM3 Red Blood Count 2.74 MIL/MM3 Hemoglobin 10.2 GM/DL Hematocrit 29.7 % Mean Corpuscular Volume 108.4 FL Mean Corpuscular Hemoglobin 37.3 PG Mean Corpuscular Hemoglobin Concent 34.4 % Red Cell Distribution Width 14.7 % Platelet Count 225 TH/MM3 Mean Platelet Volume 7.7 FL Neutrophils (%) (Auto) 53.8 % Lymphocytes (%) (Auto) 32.8 % Monocytes (%) (Auto) 7.7 % Eosinophils (%) (Auto) 4.7 % Basophils (%) (Auto) 1.0 % Neutrophils # (Auto) 3.6 TH/MM3 Lymphocytes # (Auto) 2.2 TH/MM3 Monocytes # (Auto) 0.5 TH/MM3 Eosinophils # (Auto) 0.3 TH/MM3 Basophils # (Auto) 0.1 TH/MM3 CBC Comment DIFF FINAL Differential Comment Blood Urea Nitrogen 34 MG/DL Creatinine 2.96 MG/DL Random Glucose 138 MG/DL Total Protein 6.5 GM/DL Albumin 3.4 GM/DL Calcium Level 8.4 MG/DL Alkaline Phosphatase 37 U/L Aspartate Amino Transf (AST/SGOT) 33 U/L Alanine Aminotransferase (ALT/SGPT) 36 U/L Total Bilirubin 0.4 MG/DL Sodium Level 140 MEQ/L Potassium Level 4.1 MEQ/L Chloride Level 107 MEQ/L Carbon Dioxide Level 25.3 MEQ/L Anion Gap 8 MEQ/L Estimat Glomerular Filtration Rate 21 ML/MIN CT the pelvis reveals no acute fracture or dislocation. Degenerative changes involving the lower lumbar spine. Uncomplicated sigmoid diverticulosis. Distal abdominal aortic aneurysm measured 3.7 cm AP by 3.7 cm transverse. Differential Diagnosis Differential diagnosis includes fracture, dislocation, muscle spasm, sprain, strain, radiculopathy, pathologic fracture. Narrative Course IV was established, labs are drawn and sent, and the patient was placed on cardiac telemetry monitoring and continuous pulse oximetry monitoring. 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 X-ray of the pelvis and right hip were obtained. X-ray of the pelvis and right hip was unremarkable except for degenerative changes, therefore, CT pelvis without IV contrast was ordered. Creatinine was elevated at 2.96, previous ones appear to be 2.4-2.41. Hemoglobin was at 10, this appears to be his baseline. The patient continued to complain of pain, therefore, was administered 1 dose of Toradol [address] of the pelvis reveals distal abdominal aortic aneurysm 3.7 x 3.7, no fracture or dislocation. The patient had morphine and Toradol, continue to complain of pain. We attempted a trial of ambulation, the patient was unable to get up and mobilize out of the bed much less ambulate. The states she is unable to take care of the patient at home if he is unable to ambulate. I had a discussion with the patient regarding penitentiary facility or [facility], the patient does not want to go to a [facility]. The patient will be 23 hour observation and physical therapy evaluation, he may need a walker, home health care nursing, or penitentiary facility for short term rehabilitation. The patient's primary physician is Dr. Eloina Black, therefore, the on-call medical service was paged for admission. Physician Communication Physician Communication The on-call medical service was paged for 23 hour observation. Diagnosis Primary Impression: Right hip pain Additional Impression: Inability to ambulate due to right hip Admitting Information Admitting Physician Requests: Observation Condition: Stable Wang Peralta MD Jun 08, 2017 08:07
[2017-06-08] MEDS ORDERED: KETOROLAC TROMETHAMINE 30 MG/ML (IVP) VIAL IV PUSH ONE (08:45)
[2017-06-08 08:48] LABS: AUTOMATED NEUTROPHIL # 3.6 TH/MM3 (1.8-7.7); BASOPHIL # 0.1 TH/MM3 (0-0.2); EOSINOPHIL # 0.3 TH/MM3 (0-0.4); EOSINOPHIL % 4.7 % (0.0-4.0); HEMATOCRIT 29.7 % (39.0-51.0); HEMOGLOBIN 10.2 GM/DL (13.0-17.0); LYMPH % 32.8 % (9.0-44.0); LYMPHOCYTE # 2.2 TH/MM3 (1.0-4.8); MEAN CELL VOLUME 108.4 FL (80.0-100.0); MEAN CORPUSCULAR HEMOGLOBIN 37.3 PG (27.0-34.0); MEAN CORPUSCULAR HGB CONC 34.4 % (32.0-36.0); MEAN PLATELET VOLUME 7.7 FL (7.0-11.0); MONO % 7.7 % (0.0-8.0); MONOCYTE # 0.5 TH/MM3 (0-0.9); NEUT % 53.8 % (16.0-70.0); PLATELET COUNT 225 TH/MM3 (150-450); RED BLOOD COUNT 2.74 MIL/MM3 (4.50-5.90); RED CELL DISTRIBUTION WIDTH 14.7 % (11.6-17.2); WHITE BLOOD COUNT 6.7 TH/MM3 (4.0-11.0)
--- NOTE | 2017-06-08 08:49 | RADRPT ---
EXAM DATE/TIME: 06/08/2017 08:24 [facility] COMPARISON: No previous studies available for comparison. INDICATIONS : Right hip pain, denies injury MEDICAL HISTORY : Cardiovascular disease. Hypertension. Leukemia. Diabetes, CHF, SURGICAL HISTORY : Pacemaker. ENCOUNTER: Initial ACUITY: 3 days PAIN SCORE: 10/10 LOCATION: Right Hip FINDINGS: Degenerative changes are noted involving the hip joints and lower lumbar spine. There is no acute fr acture or dislocation of the right hip. CONCLUSION: 1. No acute fracture or dislocation. 2. Degenerative changes involving the hips and lower lumbar spine. Max Briggs MD on June 08, 2017 at 8:45 Board Certified Radiologist. This report was verified electronically.
[2017-06-08 09:10] LABS: ALBUMIN 3.4 GM/DL (3.4-5.0); AST (GOT) 33 U/L (15-37); BICARBONATE 25.3 MEQ/L (21.0-32.0); BLOOD UREA NITROGEN 34 MG/DL (7-18); CALCIUM 8.4 MG/DL (8.5-10.1); CHLORIDE 107 MEQ/L (98-107); CREATININE 2.96 MG/DL (0.60-1.30); GLOMERULAR FILTRATION RATE 21 ML/MIN (>89); GLUCOSE,RANDOM 138 MG/DL (74-106); SODIUM (NA) 140 MEQ/L (136-145)
[2017-06-08 09:12] LABS: ALT (GPT) 36 U/L (12-78)
[2017-06-08 09:13] LABS: ALKALINE PHOSPHATASE 37 U/L (45-117); TOTAL BILIRUBIN ADULT 0.4 MG/DL (0.2-1.0); TOTAL PROTEIN 6.5 GM/DL (6.4-8.2)
--- NOTE | 2017-06-08 09:53 | RADRPT ---
EXAM DATE/TIME: 06/08/2017 09:29 [facility] COMPARISON: No previous studies available for comparison. INDICATIONS : Right hip pain for four days. ORAL CONTRAST: No oral contrast ingested. RADIATION DOSE: 22.31 CTDIvol (mGy) MEDICAL HISTORY : Renal calculi. Leukemia. diabetes SURGICAL HISTORY : left knee surgery ENCOUNTER: Initial ACUITY: 4 - 6 days PAIN SCALE: 9/10 LOCATION: Right hip TECHNIQUE: Volumetric scanning of the pelvis was performed. Using automated exposure control and adjustment of the mA and/or kV according to patient size, radiation dose was kept as low as reasonably achievable t o obtain optimal diagnostic quality images. DICOM format image data is available electronically for review and comparison. FINDINGS: BOWEL/MESENTERY: Uncomplicated sigmoid diverticulosis. BLADDER: There is no wall thickening or mass. RETROPERITONEUM: There is no lymphadenopathy. Distal abdominal aortic aneurysm is noted measuring 3.7 cm x 3.7 cm. REPRODUCTIVE: Within normal limits. INGUINAL: There is no lymphadenopathy or hernia. MUSCULOSKELETAL: Degenerative changes are noted involving the lower lumbar spine. No acute fracture or dislocation of the hips is noted. CONCLUSION: 1. No acute fracture or dislocation. 2. Degenerative changes involving the lower lumbar spine. 3. Uncomplicated sigmoid diverticulosis. 4. Distal abdominal aortic aneurysm measuring 3.7 cm AP by 3.7 cm transverse. Max Briggs MD on June 08, 2017 at 9:47 Board Certified Radiologist. This report was verified electronically.
[2017-06-08] MEDS ORDERED: MAGNESIUM HYDROXIDE SUSP 30 ML CUP PO PRN (10:45)
[2017-06-08] MEDS ORDERED: LACTULOSE SYRUP 20 GM/30 ML CUP PO PRN (10:45)
[2017-06-08] MEDS ORDERED: BISACODYL 10 MG SUPP RECTAL PRN (10:45)
[2017-06-08] MEDS ORDERED: ACETAMINOPHEN/HYDROcodone 325 MG/5 MG TAB PO PRN (10:45)
[2017-06-08] MEDS ORDERED: SODIUM CHLORIDE 0.9% FLUSH 10 ML FLUSH IV FLUSH PRN (10:45)
[2017-06-08] MEDS ORDERED: cloNIDine HCL 0.1 MG TAB PO PRN (10:45)
[2017-06-08] MEDS ORDERED: SENNOSIDES 8.6 MG TAB PO PRN (10:45)
[2017-06-08] MEDS ORDERED: NALOXONE HCL 0.4 MG/ML AMP IV PUSH PRN (10:45)
[2017-06-08] MEDS ORDERED: ACETAMINOPHEN 325 MG TAB PO PRN (10:45)
--- NOTE | 2017-06-08 10:50 | HHI.HP ---
[facility] Service Family Medicine Primary Care Physician Eloina Black, DO Admission Diagnosis right hip pain, inability to ambulate Diagnoses: International Travel<30 Days: No Contact w/Intl Traveler<30days: No Known Affected Area: No History of Present Illness Mr. Tabares is a 82yo white male with a PMH of DM and HTN presenting with right hip pain. He states that this started 2 days ago when he went out to dinner he noticed that his right hip hurt a little, but was tolerable. Last night he was watching TV, when he realized he couldn't get out of his chair. Then this morning, he had to use the bathroom and could not get out of bed. He called an ambulance and had to be carried out. He says he is never experienced these symptoms before. He's never had any issues with any other joints. No changes in activity. Of note, 3 days ago he slipped and nearly fell while putting water underneath the cart at [facility], but caught himself. When he was catching himself he twisted to the right. He did not hit any part of his body. He usually walks with a cane. Describes the pain as a 10 out of 10 in located deep in his right lateral hip with no radiation. Worse with movement, slightly better with pain medication. No numbness or tingling. Review of Systems Constitutional: DENIES: Fever, Chills Eyes: DENIES: Blurred vision Ears, nose, mouth, throat: DENIES: Tinnitus, Vertigo Respiratory: DENIES: Cough, Shortness of breath Cardiovascular: DENIES: Chest pain Gastrointestinal: COMPLAINS OF: Constipation, DENIES: Bloody stools Genitourinary: DENIES: Urinary frequency, Urinary incontinence Musculoskeletal: COMPLAINS OF: Joint pain, DENIES: Joint Swelling Integumentary: DENIES: Rash Hematologic/lymphatic: DENIES: Bruising Neurologic: COMPLAINS OF: Poor Balance (wobbly), DENIES: Localized weakness, Paresthesias Past Family Social History Past Medical History DM Leukemia- 1996- on chemotherapy- Gleevec HS HTN Hx of cataracts CKD Past Surgical History Pacemaker- 2016 Cataract surgery Lung biopsies Reported Medications Reported Meds & Active Scripts Active Proair Hfa 8.5 GM Inh (Albuterol Sulfate) 90 Mcg/Act Aer 2 Puff INH Q4-6H PRN 108 mcg/actuation Reported Losartan (Losartan Potassium) 25 Mg Tab 25 Mg PO DAILY Amiodarone (Amiodarone HCl) 200 Mg Tab 200 Mg PO DAILY Coreg (Carvedilol) 3.125 Mg Tab 3.125 Mg PO BID Aspirin 325 Mg Tab 325 Mg PO DAILY Lovastatin 20 Mg Tab 20 Mg PO DAILY Glipizide 5 Mg Tab 5 Mg PO DAILY Take 30 minutes before a meal Lasix (Furosemide) 40 Mg Tab 40 Mg PO DAILY Gleevec (Imatinib Mesylate) 100 Mg Tab 400 Mg PO DAILY Allergies: Coded Allergies: No Known Allergies (Verified , 09/19/15) Family History Mother- of stomach cancer Father- emphysema Children- brain cancer Social History 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 started when he was 15, ppd Illicit drugs- none Physical Exam Vital Signs Vital Signs Date Time Temp Pulse Resp B/P (MAP) Pulse Ox O2 Delivery O2 Flow Rate FiO2 06/08/17 07:50 52 17 06/08/17 07:48 97.7 54 16 143/65 (91) 93 Physical Exam GENERAL: This is a well-nourished, well-developed obese white male patient laying on his left side, in no apparent distress. SKIN: No rashes, ecchymoses or lesions. Cool and dry. HEAD: Atraumatic. Normocephalic. EYES: Pupils equal round and reactive. Extraocular motions intact. No scleral icterus. No injection or drainage. ENT: Nose without bleeding, purulent drainage or septal hematoma. Throat without erythema, tonsillar hypertrophy or exudate. Uvula midline. Airway patent. NECK: Trachea midline. No JVD or lymphadenopathy. Supple, nontender, no meningeal signs. CARDIOVASCULAR: Regular rate and rhythm without murmurs, gallops, or rubs. RESPIRATORY: Clear to auscultation. Breath sounds equal bilaterally. No wheezes , rales, or rhonchi. Decreased air movement. GASTROINTESTINAL: Abdomen soft, non-tender, nondistended. No hepato-splenomegaly , or palpable masses. No guarding. MUSCULOSKELETAL: Extremities without clubbing, cyanosis, 1+ pitting edema to inferior knee bilaterally. NO Right hip joint effusion, or edema noted. Tenderness at gluteus medius and some tenderness on lateral gluteus brain. Pain with movement of right hip. Limited ROM of right hip. NO right knee pain with movement. No calf tenderness. Negative Homans sign bilaterally. Small amount of stool in underwear and outside of anus. NEUROLOGICAL: Awake and alert. Motor and sensory grossly within normal limits. Five out of 5 muscle strength in all muscle groups, except 3/5 in right LE. Normal speech. Laboratory Laboratory Tests Test 06/08/17 08:15 White Blood Count 6.7 Red Blood Count 2.74 Hemoglobin 10.2 Hematocrit 29.7 Mean Corpuscular Volume 108.4 Mean Corpuscular Hemoglobin 37.3 Mean Corpuscular Hemoglobin Concent 34.4 Red Cell Distribution Width 14.7 Platelet Count 225 Mean Platelet Volume 7.7 Neutrophils (%) (Auto) 53.8 Lymphocytes (%) (Auto) 32.8 Monocytes (%) (Auto) 7.7 Eosinophils (%) (Auto) 4.7 Basophils (%) (Auto) 1.0 Neutrophils # (Auto) 3.6 Lymphocytes # (Auto) 2.2 Monocytes # (Auto) 0.5 Eosinophils # (Auto) 0.3 Basophils # (Auto) 0.1 CBC Comment DIFF FINAL Differential Comment Blood Urea Nitrogen 34 Creatinine 2.96 Random Glucose 138 Total Protein 6.5 Albumin 3.4 Calcium Level 8.4 Alkaline Phosphatase 37 Aspartate Amino Transf (AST/SGOT) 33 Alanine Aminotransferase (ALT/SGPT) 36 Total Bilirubin 0.4 Sodium Level 140 Potassium Level 4.1 Chloride Level 107 Carbon Dioxide Level 25.3 Anion Gap 8 Estimat Glomerular Filtration Rate 21 Result Diagram: 06/08/1715 06/08/1715 Imaging Last Impressions Pelvis CT 06/08/17 0000 Signed Impressions: Service Date/Time: Thursday, June 08, 2017 09:29 - CONCLUSION: 1. No acute fracture or dislocation. 2. Degenerative changes involving the lower lumbar spine. 3. Uncomplicated sigmoid diverticulosis. 4. Distal abdominal aortic aneurysm measuring 3.7 cm AP by 3.7 cm transverse. Max Briggs MD Hip and Pelvis X-Ray 06/08/17 0000 Signed Impressions: Service Date/Time: Thursday, June 08, 2017 08:24 - CONCLUSION: 1. No acute fracture or dislocation. 2. Degenerative changes involving the hips and lower lumbar spine. Max Briggs MD [facility] VTE Risk Assessment Caprini VTE Risk Assessment: Mod/High Risk (score >= 2) Caprini Risk Assessment Model Point Value = 1 Point Value = 2 Point Value = 3 Point Value = 5 Age 41-60 Minor surgery BMI > 25 kg/m2 Swollen legs Varicose veins or History of unexplained or recurrent spontaneous Oral contraceptives or hormone replacement Sepsis (< 1 month) Serious lung disease, including pneumonia (< 1 month) Abnormal pulmonary function Acute myocardial infarction Congestive heart failure (< 1 month) History of inflammatory bowel disease Medical patient at bed rest Age 61-74 Arthroscopic surgery Major open surgery (> 45 min) Laparoscopic surgery (> 45 min) Malignancy Confined to bed (> 72 hours) Immobilizing plaster cast Central venous access Age >= 75 History of VTE Family history of VTE Factor V Leiden Prothrombin [id number] Lupus anticoagulant Anticardiolipin antibodies Elevated serum homocysteine Heparin-induced thrombocytopenia Other congenital or acquired thrombophilia Stroke (< 1 month) Elective arthroplasty Hip, pelvis, or leg fracture Acute spinal cord injury (< 1 month) Prophylaxis Regimen Total Risk Factor Score Risk Level Prophylaxis Regimen 0-1 Low Early ambulation 2 Moderate Order ONE of the following: *Sequential Compression Device (SCD) *Heparin 5000 units SQ BID 3-4 Higher Order ONE of the following medications: *Heparin 5000 units SQ TID *Enoxaparin/Lovenox 40 mg SQ daily (WT < 150 kg, CrCl > 30 mL/min) *Enoxaparin/Lovenox 30 mg SQ daily (WT < 150 kg, CrCl > 10-29 mL/min) *Enoxaparin/Lovenox 30 mg SQ BID (WT < 150 kg, CrCl > 30 mL/min) AND/OR *Sequential Compression Device (SCD) 5 or more Highest Order ONE of the following medications: *Heparin 5000 units SQ TID (Preferred with Epidurals) *Enoxaparin/Lovenox 40 mg SQ daily (WT < 150 kg, CrCl > 30 mL/min) *Enoxaparin/Lovenox 30 mg SQ daily (WT < 150 kg, CrCl > 10-29 mL/min) *Enoxaparin/Lovenox 30 mg SQ BID (WT < 150 kg, CrCl > 30 mL/min) AND *Sequential Compression Device (SCD) Assessment and Plan Assessment and Plan Mr. Tabares is a 82yoWM with a PMH of DM and HTN presenting with right hip pain. He is being admitted to observation since he is unable to walk. Code Status Full code Discussed Condition With DSW Dr. Cindy Eli Problem List: (1) Right hip pain ICD Codes: M25.551 - Pain in right hip Status: Acute Plan: Right hip pain that was most likely a result of his near fall 3 days prior to admission. Physical exam suggests a musculoskeletal origin. Since patient is unable to ambulate may have to go to rehabilitation. CT and XR reassuring showing no signs of fracture. Only chronic degenerative changes. 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, BCR/ABL-positive, not having achieved remission Status: Chronic Plan: * Continue home medication of Gleevec 400mg po qD @ 1900 (4) COPD (chronic obstructive pulmonary disease) ICD Codes: J44.9 - Chronic obstructive pulmonary disease, unspecified Status: Chronic Plan: Patient on at home oxygen 3L NC * Continue at home medications: * Albuterol inhaler (5) CKD (chronic kidney disease), stage III ICD Codes: N18.3 - Chronic kidney disease, stage 3 (moderate) Status: Chronic Plan: * Renally dose medications * Avoid nephrotoxins (6) HTN (hypertension) ICD Codes: I10 - Essential (primary) hypertension Status: Chronic Plan: Pt has a pacemaker and CHF as well * Continue at home medications: * Amiodarone 200mg po qD * Carvedilol 3.125mg po BID * Losartan 25mg po qD * Furosemide 40mg tab * Aspirin 325mg qD (7) Diabetes ICD Codes: E11.9 - Type 2 diabetes mellitus without complications Status: Chronic Plan: Patient states that DM is usually controlled * Hold at home medications * low dose SSI (8) FEN Status: Acute Plan: Fluids: PO hydration Electrolytes: monitor and replete as needed Nutrition: Diabetic diet DVT Prophylaxis: Early ambulation. Lovenox 30mg subQ q24hr GI Prophylaxis: none indicated at this time Rola Norris MD R1 Jun 08, 2017 10:50
[2017-06-08] MEDS ORDERED: RESP: ALBUTEROL 2.5 MG/3 ML NEB (PRN) NEB (11:00)
[2017-06-08] MEDS ORDERED: DEXTROSE 50% IN WATER 50 ML VIAL(D50) IV PUSH PRN (11:00)
[2017-06-08] MEDS ORDERED: GLUCAGON 1 MG/ML VIAL OTHER PRN (11:00)
[2017-06-08] MEDS: CARVEDILOL 3.125 MG TAB PO SCH ×2 (11:27→21:17)
[2017-06-08] MEDS: ASPIRIN 325 MG TAB PO SCH (11:27)
[2017-06-08] MEDS: AMIODARONE 200 MG TAB PO SCH (11:27)
[2017-06-08] MEDS: ENOXAPARIN SODIUM 30 MG/0.3 ML SYRINGE SQ SCH (11:28)
[2017-06-08] MEDS: LOSARTAN 25 MG TAB PO SCH (11:28)
[2017-06-08] MEDS: FUROSEMIDE 40 MG TAB PO SCH (11:28)
[2017-06-08] MEDS: ACETAMINOPHEN/HYDROcodone 325 MG/7.5 MG TAB PO PRN ×3 (11:34→21:17)
[2017-06-08] MEDS: PRAVASTATIN SOD 20 MG TAB PO SCH (11:35)
[2017-06-08] MEDS: INSULIN ASPART SUPPLEMENTAL SCALE SQ SCH ×3 (12:00→21:00)
[2017-06-08] MEDS: ONDANSETRON HCL 4 MG/2 ML VIAL IVP PRN (13:35)
[2017-06-08] MEDS: MORPHINE SULFATE 2 MG/ML INJ IV PUSH PRN ×2 (13:36→17:27)
--- NOTE | 2017-06-08 14:57 | HHI.FPPN ---
Subjective Remarks Pt. seen and examined; discussed with Med A team. This is an 82 yo male who, 2 days prior to admission, developed pain in the right lateral hip over the area of the intertrochanteric bursa. It has gradually worsened, such that he was unable to rise from bed to urinate overnight, and couldn't get out of bed or bear weight today. He called [facility] to bring him to ED. He denies any recent trauma; 10 days ago slipped but did not go down apparently. He denies tenderness to palpation, rash or redness at the site. He has no history of gout. His primary care doctor retired and he hasn' t yet seen her replacement. No recent medication changes, no fever or chills. Anorexic for solids today. On Gleevec for hx leukemia. Please see H&P for this admission for additional historical details, including past, family and social history and ROS at the time of admission. Objective Vitals Vital Signs Date Time Temp Pulse Resp B/P (MAP) Pulse Ox O2 Delivery O2 Flow Rate FiO2 06/08/17 12:13 97.9 50 16 142/66 (91) 100 06/08/17 10:00 51 16 149/67 (94) 98 Nasal Cannula 3.00 06/08/17 07:50 52 17 06/08/17 07:48 97.7 54 16 143/65 (91) 93 Result Diagram: 06/08/17 0815 06/08/17 0815 Imaging Last [address] 06/08/17 0000 Signed Impressions: Service Date/Time: Thursday, June 08, 2017 09:29 - CONCLUSION: 1. No acute fracture or dislocation. 2. Degenerative changes involving the lower lumbar spine. 3. Uncomplicated sigmoid diverticulosis. 4. Distal abdominal aortic aneurysm measuring 3.7 cm AP by 3.7 cm transverse. Max Briggs MD Hip and Pelvis X-Ray 06/08/17 0000 Signed Impressions: Service Date/Time: Thursday, June 08, 2017 08:24 - CONCLUSION: 1. No acute fracture or dislocation. 2. Degenerative changes involving the hips and lower lumbar spine. Max Briggs MD Objective Remarks O. CONSTITUTIONAL/GEN: normally nourished, in some distress with pain right lateral hip with movement. EYES: conjunctiva normal, PERRLA, EOMI. ENT: Mouth and pharynx normal. NECK: supple LUNGS: clear A-P, respiratory effort is normal. CARDIOVASCULAR: RR without murmur or gallop. 1-2+ pitting edema both LE GI/ABD: soft without masses, without organomegaly. NEURO: No focal deficits. SKIN: color pale, no rashes noted. HEME/LYMPH: no bruising, petechia or significant adenopathy MUSC: back is normal in appearance. Extremities are normal in appearance with exception of bilateral pitting edema both LE, nontender over right lateral hip, pt loathe to move right hip. PSYCH/MENTAL STATUS: Alert and oriented x 3. A/P Assessment and Plan Mr. Tabares is a 82yoWM with a PMH of DM and HTN presenting with right lateral hip pain. He is being admitted to observation since he is unable to walk. Discharge Planning Anticipate discharge in 1-2 days when able to bear weight Attending Attestation Patient seen and examined. Case reviewed and discussed with the resident team. Agree with plan of care as discussed with me and documented in the resident note. Problem List: (1) Right hip pain ICD Codes: M25.551 - Pain in right hip Status: Acute Plan: Right hip pain that was most likely a result of his near fall 3 days prior to admission. Physical exam suggests a musculoskeletal origin. Since patient is unable to ambulate may have to go to rehabilitation. 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, BCR/ABL-positive, not having achieved remission Status: Chronic Plan: * Continue home medication of Gleevec 400mg po qD @ 1900 (4) COPD (chronic obstructive pulmonary disease) ICD Codes: J44.9 - Chronic obstructive pulmonary disease, unspecified Status: Chronic Plan: Patient on at home oxygen 3L [place] * Continue at home medications (5) CKD (chronic kidney disease), stage III ICD Codes: N18.3 - Chronic kidney disease, stage 3 (moderate) Status: Chronic Plan: * Renally dose medications * Avoid nephrotoxins (6) HTN (hypertension) ICD Codes: I10 - Essential (primary) hypertension Status: Chronic Plan: * Continue at home medications (7) Diabetes ICD Codes: E11.9 - Type 2 diabetes mellitus without complications Status: Chronic Plan: Patient states that DM is usually controlled * Hold at home medications * low dose SSI (8) FEN Status: Acute Plan: Fluids: PO hydration Electrolytes: monitor and replete as needed Nutrition: Diabetic diet DVT Prophylaxis: Early ambulation. Lovenox 30mg subQ q24hr GI Prophylaxis: none indicated at this time Angela Sears MD Jun 08, 2017 14:57
[2017-06-08 16:00] LABS: PROTHROMBIN TIME - PATIENT 10.8 SEC (9.8-11.6)
[2017-06-08 18:00] LABS: BILIRUBIN, URINE NEG (NEG); BLOOD, URINE NEG (NEG); GLUCOSE,URINE NEG (NEG); KETONE, URINE NEG (NEG); NITRITE,URINE NEG (NEG); PH, URINE 5.5 (5.0-8.5); URINE COLOR YELLOW (YELLW/STRAW); URINE LEUKOCYTE ESTERASE NEG (NEG)
[2017-06-08] MEDS: IMATINIB MESYLATE 100 MG TAB PO SCH (18:35)
[2017-06-08] MEDS: SODIUM CHLORIDE 0.9% FLUSH 10 ML FLUSH IV FLUSH SCH (21:15)
[2017-06-08] MEDS: DOCUSATE SODIUM 50 MG/SENNA 8.6 MG TAB PO SCH (21:17)
[2017-06-09] MEDS: MORPHINE SULFATE 2 MG/ML INJ IV PUSH PRN ×2 (00:08→09:46)
[2017-06-09 05:14] LABS: AUTOMATED NEUTROPHIL # 3.4 TH/MM3 (1.8-7.7); BASOPHIL % 0.6 % (0.0-2.0); EOSINOPHIL # 0.2 TH/MM3 (0-0.4); EOSINOPHIL % 2.8 % (0.0-4.0); HEMATOCRIT 28.4 % (39.0-51.0); HEMOGLOBIN 9.6 GM/DL (13.0-17.0); LYMPH % 29.1 % (9.0-44.0); LYMPHOCYTE # 1.7 TH/MM3 (1.0-4.8); MEAN CELL VOLUME 108.9 FL (80.0-100.0); MEAN CORPUSCULAR HEMOGLOBIN 36.9 PG (27.0-34.0); MEAN CORPUSCULAR HGB CONC 33.8 % (32.0-36.0); MEAN PLATELET VOLUME 7.6 FL (7.0-11.0); MONO % 8.6 % (0.0-8.0); MONOCYTE # 0.5 TH/MM3 (0-0.9); NEUT % 58.9 % (16.0-70.0); PLATELET COUNT 202 TH/MM3 (150-450); RED BLOOD COUNT 2.61 MIL/MM3 (4.50-5.90); RED CELL DISTRIBUTION WIDTH 14.9 % (11.6-17.2); WHITE BLOOD COUNT 5.9 TH/MM3 (4.0-11.0)
[2017-06-09 05:22] VITALS: BP 129/62; PULSE 50; RESP 18; TEMP 98.1; O2SAT 92
[2017-06-09 05:33] LABS: ALBUMIN 3.1 GM/DL (3.4-5.0); AST (GOT) 33 U/L (15-37); BICARBONATE 27.3 MEQ/L (21.0-32.0); BLOOD UREA NITROGEN 33 MG/DL (7-18); CHLORIDE 109 MEQ/L (98-107); CREATININE 2.77 MG/DL (0.60-1.30); GLOMERULAR FILTRATION RATE 22 ML/MIN (>89); GLUCOSE,RANDOM 117 MG/DL (74-106); SODIUM (NA) 143 MEQ/L (136-145)
[2017-06-09 05:35] LABS: ALT (GPT) 35 U/L (12-78); CALCIUM 8.2 MG/DL (8.5-10.1)
[2017-06-09 05:36] LABS: ALKALINE PHOSPHATASE 35 U/L (45-117); TOTAL BILIRUBIN ADULT 0.6 MG/DL (0.2-1.0); TOTAL PROTEIN 5.9 GM/DL (6.4-8.2)
[2017-06-09 07:30] VITALS: O2SAT 97
[2017-06-09 07:31] VITALS: BP 131/58; PULSE 52; RESP 18; TEMP 97.7; O2SAT 100
[2017-06-09] MEDS: INSULIN ASPART SUPPLEMENTAL SCALE SQ SCH ×4 (08:00→21:34)
[2017-06-09] MEDS: SODIUM CHLORIDE 0.9% FLUSH 10 ML FLUSH IV FLUSH SCH ×2 (08:21→21:34)
[2017-06-09] MEDS: ASPIRIN 325 MG TAB PO SCH (08:22)
[2017-06-09] MEDS: ACETAMINOPHEN/HYDROcodone 325 MG/7.5 MG TAB PO PRN (08:23)
[2017-06-09] MEDS: CARVEDILOL 3.125 MG TAB PO SCH ×2 (08:24→21:35)
[2017-06-09] MEDS: PRAVASTATIN SOD 20 MG TAB PO SCH (08:24)
[2017-06-09] MEDS: LOSARTAN 25 MG TAB PO SCH (08:24)
[2017-06-09] MEDS: AMIODARONE 200 MG TAB PO SCH (08:24)
[2017-06-09] MEDS: DOCUSATE SODIUM 50 MG/SENNA 8.6 MG TAB PO SCH ×3 (08:26→21:35)
[2017-06-09] MEDS: FUROSEMIDE 40 MG TAB PO SCH (08:26)
[2017-06-09] MEDS ORDERED: INFLUENZA VIRUS VACCINE (QUADRIVALENT) 0.5 ML SYR IM ONE (10:00)
[2017-06-09] MEDS ORDERED: LIDOCAINE 4% CREAM 5 GM TUBE TOPICAL ONE (11:00)
[2017-06-09 11:20] VITALS: BP 139/61; PULSE 58; RESP 19; TEMP 97.8; O2SAT 98
[2017-06-09] MEDS: ENOXAPARIN SODIUM 30 MG/0.3 ML SYRINGE SQ SCH (11:59)
[2017-06-09] MEDS: methylPREDNISolone SOD SUCC 40 MG/1 ML VIAL IV PUSH SCH ×2 (12:00→21:35)
[2017-06-09] MEDS: ONDANSETRON HCL 4 MG/2 ML VIAL IVP PRN (12:03)
--- NOTE | 2017-06-09 12:28 | HHI.FPPN ---
Subjective Remarks Patient states that he is not doing well this morning. He is still having right hip pain. He now has new pain in his back because of the way he has been laying. He is unable to lift his right leg. He vomited 1 this morning. No fevers or chills, no chest pain, no shortness of breath, no abdominal pain, no diarrhea or constipation. He is willing to work with physical therapy in the hospital. (Rola Norris MD R1) Objective Vitals Vital Signs Date Time Temp Pulse Resp B/P (MAP) Pulse Ox O2 Delivery O2 Flow Rate FiO2 06/09/17 11:20 97.8 58 19 139/61 (87) 98 06/09/17 07:31 97.7 52 18 131/58 (82) 100 06/09/17 07:30 97 Nasal Cannula 2.00 06/09/17 05:22 98.1 50 18 129/62 (84) 92 06/08/17 23:48 97.8 55 18 137/65 (89) 98 06/08/17 21:11 98 Nasal Cannula 3.00 06/08/17 20:57 98.0 45 18 139/63 (88) 98 06/08/17 16:39 97.5 50 16 130/63 (85) 100 I/O 06/08/17 06/08/17 06/08/17 06/09/17 06/09/17 06/09/17 07:00 15:00 23:00 07:00 15:00 23:00 Output Total 400 ml 400 ml Balance -400 ml -400 ml Output Urine Total 400 ml 400 ml # Voids 1 (Rola Norris MD R1) Result Diagram: 06/09/17 0431 06/09/17 0431 Imaging Last Impressions Pelvis CT 06/08/17 0000 Signed Impressions: Service Date/Time: Thursday, June 08, 2017 09:29 - CONCLUSION: 1. No acute fracture or dislocation. 2. Degenerative changes involving the lower lumbar spine. 3. Uncomplicated sigmoid diverticulosis. 4. Distal abdominal aortic aneurysm measuring 3.7 cm AP by 3.7 cm transverse. Max Briggs MD Hip and Pelvis X-Ray 06/08/17 0000 Signed Impressions: Service Date/Time: Thursday, June 08, 2017 08:24 - CONCLUSION: 1. No acute fracture or dislocation. 2. Degenerative changes involving the hips and lower lumbar spine. Max Briggs MD Objective Remarks GENERAL: This is a well-nourished, well-developed obese white male patient laying on his left side, in no apparent distress. Needed full assistance to turn onto back. SKIN: No rashes, ecchymoses or lesions. Cool and dry. HEAD: Atraumatic. Normocephalic. ENT: Nose without bleeding, purulent drainage or septal hematoma. NECK: Trachea midline. No JVD or lymphadenopathy. Supple, nontender, no meningeal signs. CARDIOVASCULAR: Regular rate and rhythm without murmurs, gallops, or rubs. RESPIRATORY: Clear to auscultation. Breath sounds equal bilaterally. No wheezes , rales, or rhonchi. Decreased air movement. GASTROINTESTINAL: Abdomen soft, non-tender, nondistended. No hepato-splenomegaly , or palpable masses. No guarding. MUSCULOSKELETAL: Extremities without clubbing, cyanosis, 1+ pitting edema to inferior knee bilaterally. NO Right hip joint effusion, or edema noted. Tenderness at gluteus medius and some tenderness on lateral gluteus brain. Pain with movement of right hip. Limited ROM of right hip. NO right knee pain with movement. No calf tenderness. Negative Homans sign bilaterally. NEUROLOGICAL: Awake and alert. Motor and sensory grossly within normal limits. Five out of 5 muscle strength in all muscle groups, except 3/5 in right LE. Normal speech. (Rola Norris MD R1) A/P Assessment and Plan Mr. Tabares is a 82yoWM with a PMH of DM and HTN presenting with right lateral hip pain. He is being admitted to observation since he is unable to walk. Discharge Planning Anticipate discharge in 1-2 days when able to bear weight (Rola Norris MD R1) Attending Attestation Patient seen and examined. Case reviewed and discussed with the resident team. Agree with plan of care as discussed with me and documented in the resident note. (Angela Sears MD) Problem List: (1) Right hip pain ICD Codes: M25.551 - Pain in right hip Status: Acute Plan: Right hip pain that was most likely a result of his near fall 3 days prior to admission. Physical exam suggests a musculoskeletal origin. Since patient is unable to ambulate may have to go to rehabilitation. CT and XR reassuring showing no signs of fracture. Only chronic degenerative changes. 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, BCR/ABL-positive, not having achieved remission Status: Chronic Plan: * Continue home medication of Gleevec 400mg po qD @ 1900 (4) COPD (chronic obstructive pulmonary disease) ICD Codes: J44.9 - Chronic obstructive pulmonary disease, unspecified Status: Chronic Plan: Patient on at home oxygen 3L [place] * Continue at home medications: * Albuterol inhaler (5) CKD (chronic kidney disease), stage III ICD Codes: N18.3 - Chronic kidney disease, stage 3 (moderate) Status: Chronic Plan: * Renally dose medications * Avoid nephrotoxins (6) HTN (hypertension) ICD Codes: I10 - Essential (primary) hypertension Status: Chronic Plan: Pt has a pacemaker and CHF as well * Continue at home medications: * Amiodarone 200mg po qD * Carvedilol 3.125mg po BID * Losartan 25mg po qD * Furosemide 40mg tab * Aspirin 325mg qD (7) Diabetes ICD Codes: E11.9 - Type 2 diabetes mellitus without complications Status: Chronic Plan: Patient states that DM is usually controlled * Hold at home medications * low dose SSI (8) FEN Status: Acute Plan: Fluids: PO hydration Electrolytes: monitor and replete as needed Nutrition: Diabetic diet DVT Prophylaxis: Early ambulation. Lovenox 30mg subQ q24hr GI Prophylaxis: none indicated at this time (Rola Norris MD R1) Rola Norris MD R1 Jun 09, 2017 12:27 Angela Sears MD Jun 09, 2017 14:37
[2017-06-09] MEDS ORDERED: METHADONE HCL 10 MG/10 ML ORAL SOLUTION PO PRN (13:00)
[2017-06-09] MEDS: METHADONE HCL 10 MG/10 ML ORAL SOLUTION PO SCH (16:23)
[2017-06-09] MEDS: IMATINIB MESYLATE 100 MG TAB PO SCH (18:45)
[2017-06-09 20:28] VITALS: BP 133/63; PULSE 60; RESP 18; TEMP 99.2; O2SAT 96
[2017-06-09] MEDS: oxyCODONE/ACETAMINOPHEN 5 MG/325 MG TAB PO PRN (23:15)
[2017-06-09 23:25] VITALS: BP 140/63; PULSE 57; RESP 19; TEMP 98.4; O2SAT 97
[2017-06-10 03:34] VITALS: BP 141/64; PULSE 55; RESP 18; TEMP 98.8; O2SAT 97
[2017-06-10] MEDS: oxyCODONE/ACETAMINOPHEN 5 MG/325 MG TAB PO PRN ×2 (05:48→18:22)
[2017-06-10 05:51] LABS: AUTOMATED NEUTROPHIL # 6.2 TH/MM3 (1.8-7.7); HEMATOCRIT 31.3 % (39.0-51.0); HEMOGLOBIN 10.4 GM/DL (13.0-17.0); LYMPH % 12.6 % (9.0-44.0); LYMPHOCYTE # 0.9 TH/MM3 (1.0-4.8); MEAN CELL VOLUME 109.2 FL (80.0-100.0); MEAN CORPUSCULAR HEMOGLOBIN 36.2 PG (27.0-34.0); MEAN CORPUSCULAR HGB CONC 33.2 % (32.0-36.0); MEAN PLATELET VOLUME 7.4 FL (7.0-11.0); MONO % 1.1 % (0.0-8.0); MONOCYTE # 0.1 TH/MM3 (0-0.9); NEUT % 86.3 % (16.0-70.0); PLATELET COUNT 222 TH/MM3 (150-450); RED BLOOD COUNT 2.86 MIL/MM3 (4.50-5.90); RED CELL DISTRIBUTION WIDTH 14.8 % (11.6-17.2); WHITE BLOOD COUNT 7.2 TH/MM3 (4.0-11.0)
[2017-06-10 06:03] LABS: BICARBONATE 29.6 MEQ/L (21.0-32.0); CALCIUM 8.4 MG/DL (8.5-10.1); CREATININE 2.74 MG/DL (0.60-1.30)
[2017-06-10 07:41] VITALS: BP 129/60; PULSE 55; RESP 21; TEMP 98; O2SAT 96
[2017-06-10 08:13] VITALS: O2SAT 96
[2017-06-10] MEDS: INSULIN ASPART SUPPLEMENTAL SCALE SQ SCH ×3 (08:23→17:00)
[2017-06-10] MEDS: FUROSEMIDE 40 MG TAB PO SCH (08:24)
[2017-06-10] MEDS: CARVEDILOL 3.125 MG TAB PO SCH (08:24)
[2017-06-10] MEDS: SODIUM CHLORIDE 0.9% FLUSH 10 ML FLUSH IV FLUSH SCH (08:24)
[2017-06-10] MEDS: LOSARTAN 25 MG TAB PO SCH (08:24)
[2017-06-10] MEDS: methylPREDNISolone SOD SUCC 40 MG/1 ML VIAL IV PUSH SCH (08:24)
[2017-06-10] MEDS: ASPIRIN 325 MG TAB PO SCH (08:25)
[2017-06-10] MEDS: AMIODARONE 200 MG TAB PO SCH (08:25)
[2017-06-10] MEDS: DOCUSATE SODIUM 50 MG/SENNA 8.6 MG TAB PO SCH (08:25)
[2017-06-10] MEDS: METHADONE HCL 10 MG/10 ML ORAL SOLUTION PO SCH (08:27)
--- NOTE | 2017-06-10 10:20 | HHI.FPPN ---
Subjective Remarks Patient was seen and examined this morning. No acute overnight events overnight. Methadone was initiated yesterday, and it has taken away all of the pain. He has not yet ambulated. Had nausea and vomiting yesterday morning without recurrence. No bowel movement yet in the hospital. Does NOT want to go to rehab so requesting re-evaluation for home health. (Cindy Eli MD R2) Objective Vitals Vital Signs Date Time Temp Pulse Resp B/P (MAP) Pulse Ox O2 Delivery O2 Flow Rate FiO2 06/10/17 08:13 96 Nasal Cannula 2.00 06/10/17 07:41 98.0 55 21 129/60 (83) 96 06/10/17 06:48 18 06/10/17 06:00 Nasal Cannula 2.00 06/10/17 03:34 98.8 55 18 141/64 (89) 97 06/09/17 23:25 98.4 57 19 140/63 (88) 97 06/09/17 20:28 99.2 60 18 133/63 (86) 96 06/09/17 11:20 97.8 58 19 139/61 (87) 98 I/O 06/09/17 06/09/17 06/09/17 06/10/17 06/10/17 06/10/17 07:00 15:00 23:00 07:00 15:00 23:00 Intake Total 480 ml Output Total 400 ml 400 ml 600 ml Balance -400 ml -400 ml -120 ml Intake Oral 480 ml Output Urine Total 400 ml 400 ml 600 ml # Voids 2 (Cindy Eli MD R2) Result Diagram: 06/10/17 0509 06/10/17 0509 Imaging Last Impressions Pelvis CT 06/08/17 0000 Signed Impressions: Service Date/Time: Thursday, June 08, 2017 09:29 - CONCLUSION: 1. No acute fracture or dislocation. 2. Degenerative changes involving the lower lumbar spine. 3. Uncomplicated sigmoid diverticulosis. 4. Distal abdominal aortic aneurysm measuring 3.7 cm AP by 3.7 cm transverse. Max Briggs MD Hip and Pelvis X-Ray 06/08/17 0000 Signed Impressions: Service Date/Time: Thursday, June 08, 2017 08:24 - CONCLUSION: 1. No acute fracture or dislocation. 2. Degenerative changes involving the hips and lower lumbar spine. Max Briggs MD Objective Remarks GENERAL: This is a well-nourished, well-developed obese white male patient laying on his left side, in no apparent distress. Did not require assistance for sitting up today. SKIN: No rashes, ecchymoses or lesions. Cool and dry. HEAD: Atraumatic. Normocephalic. ENT: Nose without bleeding, purulent drainage or rhinorrhea. NECK: Trachea midline. No JVD or lymphadenopathy. Supple, nontender, no meningeal signs. CARDIOVASCULAR: Regular rate and rhythm without murmurs, gallops, or rubs. RESPIRATORY: Clear to auscultation. Breath sounds equal bilaterally. No wheezes , rales, or rhonchi. Improved aeration today. GASTROINTESTINAL: Abdomen soft, non-tender, nondistended. Hypoactive bowel sounds. No hepato-splenomegaly, or palpable masses. No guarding. MUSCULOSKELETAL: Extremities without clubbing, cyanosis, 1+ pitting edema to inferior knee bilaterally, improved. No right hip joint effusion, or edema noted . Tenderness at gluteus medius has resolved. Pain with movement of right hip has resolved but he continues to have limited ROM of right hip. Right hip with similar limitation of ROM but no pain. No calf tenderness. Negative Homans sign bilaterally. NEUROLOGICAL: Awake and alert. Motor and sensory grossly within normal limits. Five out of 5 muscle strength in all muscle groups. Normal speech. Medications and IVs Inpatient Medications Acetaminophen (Tylenol) 650 mg Q4H PRN PO T>101; Start 06/08/17 at 10:45 Acetaminophen/ Hydrocodone Bitart ([place] 5-325 Mg) 1 tab Q4H PRN PO PAIN SCALE 3 TO 5; Start 06/08/17 at 10:45; Stop 06/09/17 at 11:56; Status DC Acetaminophen/ Hydrocodone Bitart ([place] 7.5-325 Mg) 1 tab Q4H PRN PO PAIN SCALE 6 TO 10 Last administered on 06/09/17t 08:23; Start 06/08/17 at 10:45; Stop 06/09/17 at 11:56; Status DC Albuterol Sulfate (Albuterol Neb) 2.5 mg Q4HR NEB PRN NEB SOB/WHEEZING; Start 06/08/17 at 11:00 Amiodarone HCl (Cordarone) 200 mg DAILY PO Last administered on 06/10/17 08: 25; Start 06/08/17 at 10:45 Aspirin (Aspirin) 325 mg DAILY PO Last administered on 06/10/17 08:25; Start 06/08/17 at 10:45 Bisacodyl (Dulcolax Supp) 10 mg DAILY PRN RECTAL SEVERE CONSITIPATION; Start 06/08/17 at 10:45 Carvedilol (Coreg) 3.125 mg BID PO Last administered on 06/10/17 08:24; Start 06/08/17 at 10:45 Clonidine (Catapres) 0.1 mg Q6H PRN PO SBP> OR = 180, DBP> OR = 100; Start at 10:45 Dextrose (D50w (Vial) Inj) 50 ml UNSCH PRN IV PUSH HYPOGLYCEMIA - SEE COMMENTS ; Start 06/08/17 at 11:00 Enoxaparin Sodium (Lovenox Inj) 30 mg Q24H SQ Last administered on 06/09/17 11:59; Start 06/08/17 at 11:00 Furosemide (Lasix) 40 mg DAILY PO Last administered on 06/10/17 08:24; Start 06/08/17 at 10:45 Glucagon (Glucagon Inj) 1 mg UNSCH PRN OTHER HYPOGLYCEMIA-SEE COMMENTS; Start 06/08/17 at 11:00 Imatinib Mesylate (Gleevec) 400 mg DAILY@1900 PO Last administered on 18:45; Start 06/08/17 at 19:00 Influenza Virus Vaccine (Flu (Quadrivalent) Vaccine Inj) 0.5 ml ONCE ONCE IM ; Start 06/09/17 at 10:00; Stop 06/09/17 at 10:01; Status DC Insulin Aspart (NovoLOG SUPPLEMENTAL SCALE) 1 ACHS SLIDING SCALE SQ Last administered on 06/10/17 08:23; Start 06/08/17 at 12:00 Ketorolac Tromethamine (Toradol Inj) 15 mg ONCE ONCE IV PUSH Last administered on 06/08/17 08:45; Start 06/08/17 at 08:45; Stop 06/08/17 at 08 :46; Status DC Lactulose (Lactulose Liq) 30 ml DAILY PRN PO SEVERE CONSITIPATION; Start 06/08 at 10:45 Lidocaine (L-M-X 4 Cream) 1 applic ONCE ONCE TOPICAL Last administered on 12:03; Start 06/09/17 at 11:00; Stop 06/09/17 at 11:01; Status DC Losartan Potassium (Cozaar) 25 mg DAILY PO Last administered on 06/10/17 08: 24; Start 06/08/17 at 10:45 Magnesium Hydroxide (Milk Of Magnesia Liq) 30 ml Q12H PRN PO Mild constipation ; Start 06/08/17 at 10:45 Methadone HCl (Methadone Liq) 2.5 mg Q12HR PO Last administered on 06/10/17 08:27; Start 06/09/17 at 16:00 Methylprednisolone Sodium Succinate (SoluMEDROL INJ) 40 mg Q12HR IV PUSH Last administered on 06/10/17 08:24; Start 06/09/17 at 11:00 Morphine Sulfate (Morphine Inj) 2 mg Q3H PRN IV PUSH BREAKTHROUGH PAIN Last administered on 06/09/17 09:46; Start 06/08/17 at 10:45; Stop 06/09/17 at 10 :29; Status DC Naloxone HCl (Narcan Inj) 0.4 mg UNSCH PRN IV PUSH SEE LABEL COMMENTS; Start 06/08/17 at 10:45 Ondansetron HCl (Zofran Inj) 4 mg Q6H PRN IVP NAUSEA OR VOMITING Last administered on 06/09/17 12:03; Start 06/08/17 at 10:45 Oxycodone/ Acetaminophen (Percocet 5-325 Mg) 1 tab Q6H PRN PO BREAKTHROUGH PAIN Last administered on 06/10/17 05:48; Start 06/09/17 at 11:00 Pravastatin Sodium (Pravachol) 20 mg DAILY PO Last administered on 06/09/17 08:24; Start 06/08/17 at 10:45; Status Future Hold Senna/Docusate Sodium (Olesya-Colace) 1 tab BID PO Last administered on 08:25; Start 06/09/17 at 11:00 Sennosides (Senokot) 17.2 mg Q12H PRN PO Moderate constipation; Start at 10:45 Sodium Chloride (NS Flush) 2 ml BID IV FLUSH Last administered on 10/31/17at 08 :24; Start 06/08/17 at 21:00 (Cindy Eli MD R2) Urinary Catheter: No (Cindy Eli MD R2) Vascular Central Line Catheter: No (Cindy Eli MD R2) A/P Assessment and Plan Mr. Tabares is a 82yoWM with a PMH of DM and HTN presenting with right lateral hip pain. He was admitted for further work-up and management of pain due to inability to bear weight. Discharge Planning Anticipate discharge today or tomorrow. Discharge to home with home health PT vs rehab. PT currently recommending rehab. Patient does not desire rehab, so PT re-evaluation pending (Cindy Eli MD R2) Attending Attestation Patient seen and examined. Case reviewed and discussed with the resident team. Agree with plan of care as discussed with me and documented in the resident note. (Angela Sears MD) Problem List: (1) Right hip pain ICD Codes: M25.551 - Pain in right hip Status: Acute Plan: Improved significantly on methadone. PT re-evaluation pending. Uses walker at baseline. Suspect pain is due to muscle strain, nerve irritation, or tendonitis. MRI not possible due to indwelling pacemaker and defibrillation. Wants to go home with home health PT (declines rehab). Hospital Course: Right hip pain that was most likely a result of his near fall 3 days prior to admission. Physical exam suggests a musculoskeletal origin. Since patient is unable to ambulate may have to go to rehabilitation. CT and XR reassuring showing no signs of fracture. Only chronic degenerative changes. 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 * Renally dose medications * Avoid nephrotoxins (6) HTN (hypertension) ICD Codes: I10 - Essential (primary) hypertension Status: Chronic Plan: Pt has a pacemaker/defibrillator and CHF as well * Continue at home medications: * Amiodarone 200mg po qD * Carvedilol 3.125mg po BID * Losartan 25mg po qD * Furosemide 40mg tab qD * Aspirin 325mg qD (7) Diabetes ICD Codes: E11.9 - Type 2 diabetes mellitus without complications Status: Chronic Plan: Patient states that DM is usually controlled * Hold at home medications * low dose SSI, not requiring much supplemental Novolog (8) FEN Status: Acute Plan: Fluids: PO hydration Electrolytes: monitor and replete as needed Nutrition: Diabetic diet DVT Prophylaxis: Early ambulation. Lovenox 30mg subQ q24hr GI Prophylaxis: None indicated at this time (Cindy Eli MD R2) Cindy Eli MD R2 Jun 10, 2017 10:20 Angela Sears MD Jun 10, 2017 15:39
[2017-06-10] MEDS: ENOXAPARIN SODIUM 30 MG/0.3 ML SYRINGE SQ SCH (11:54)
--- NOTE | 2017-06-10 13:38 | HHI.FF ---
Face to Face Verification Diagnosis: (1) Right hip pain (2) Inability to ambulate due to right hip Physical Therapy Order: Evaluate and Treat, Improve ambulation, Strength and gait training Home Health Nursing Order: Medical education Signs/symptoms of disease process Oxygen administration education Medication education-adverse effect I have seen patient Remi Tabares on 06/10/17. My clinical findings support the need for the requested home health care services because: Ltd mobility - disease progression Patient has SOB Deconditioned w/ increased weakness Limited ability to care for self High risk of falls I certify that my clinical findings support that this patient is homebound because: Hx COPD- exertion dyspnea/weakness Unsteady gait/balance Unsafe to leave home unassisted [id number] bed/chair Rola Norris MD R1 Jun 10, 2017 13:38
--- NOTE | 2017-06-10 13:39 | HHI.DCPOC ---
Discharge Care Plan Diagnosis: (1) Right hip pain (2) Inability to ambulate due to right hip Goals to Promote Your Health * To prevent worsening of your condition and complications * To maintain your health at the optimal level Directions to Meet Your Goals Take your medications as prescribed Follow your dietary instruction Follow activity as directed Keep your appointments as scheduled Take your immunizations and boosters as scheduled If your symptoms worsen call your PCP, if no PCP go to Urgent Care Center or Emergency Room Smoking is Dangerous to Your Health. Avoid second hand smoke Call the 24-hour hour crisis hotline for domestic abuse at Rola Norris MD R1 Jun 10, 2017 13:39
--- NOTE | 2017-06-10 13:39 | HHI.DCPOC ---
Discharge Care Plan Diagnosis: (1) Right hip pain (2) Inability to ambulate due to right hip Goals to Promote Your Health * To prevent worsening of your condition and complications * To maintain your health at the optimal level Directions to Meet Your Goals Take your medications as prescribed Follow your dietary instruction Follow activity as directed Keep your appointments as scheduled Take your immunizations and boosters as scheduled If your symptoms worsen call your PCP, if no PCP go to Urgent Care Center or Emergency Room Smoking is Dangerous to Your Health. Avoid second hand smoke Call the 24-hour hour crisis hotline for domestic abuse at Rola Norris MD R1 Jun 10, 2017 13:39
--- NOTE | 2017-06-10 13:39 | HHI.DCPOC ---
Discharge Care Plan Diagnosis: (1) Right hip pain (2) Inability to ambulate due to right hip Goals to Promote Your Health * To prevent worsening of your condition and complications * To maintain your health at the optimal level Directions to Meet Your Goals Take your medications as prescribed Follow your dietary instruction Follow activity as directed Keep your appointments as scheduled Take your immunizations and boosters as scheduled If your symptoms worsen call your PCP, if no PCP go to Urgent Care Center or Emergency Room Smoking is Dangerous to Your Health. Avoid second hand smoke Call the 24-hour hour crisis hotline for domestic abuse at Rola Norris MD R1 Jun 10, 2017 13:39
[2017-06-10] MEDS ORDERED: SENN1TAB PO (13:45)
[2017-06-10] MEDS ORDERED: METH5SOL11 PO (13:45)
[2017-06-10] MEDS ORDERED: PRED20 PO (15:25)
[2017-06-10] MEDS ORDERED: METH5TAB PO (18:58)
[2017-06-10] MEDS ORDERED: OXYC1TAB63 PO (19:02)
[2017-06-10] MEDS ORDERED: predniSONE 20 MG TAB PO SCH (21:00)
--- NOTE | 2017-06-15 12:00 | HHI.DS ---
Discharge Summary Admission Date Jun 08, 2017 at 10:20 Discharge Date: Jun 10, 2017 Admitting Diagnosis right hip pain, inability to ambulate (1) Right hip pain Plan: Improved significantly on methadone. PT re-evaluation pending. Uses walker at baseline. Suspect pain is due to muscle strain, nerve irritation, or tendonitis. MRI not possible due to indwelling pacemaker and defibrillation. Wants to go home with home health PT (declines rehab). Hospital Course: Right hip pain that was most likely a result of his near fall 3 days prior to admission. Physical exam suggests a musculoskeletal origin. Since patient is unable to ambulate may have to go to rehabilitation. CT and XR reassuring showing no signs of fracture. Only chronic degenerative changes. * Consult Physical Therapy, appreciate recs * Recommended a wheeled walker and PT at rehab * Solumedrol 40mg IV q12h, transition to PO Prednisone 40mg daily * Pain management * Methadone 2.5 q12hr scheduled * Percocet 5-325mg for breakthrough ICD Codes: M25.551 - Pain in right hip Status: Acute (2) Inability to ambulate due to right hip Plan: See above ICD Codes: R26.2 - Difficulty in walking, not elsewhere classified Status: Acute (3) CML (chronic myelocytic leukemia) Plan: * Continue home medication of Gleevec 400mg po qD @ 1900 ICD Codes: C92.10 - Chronic myeloid leukemia, BCR/ABL-positive, not having achieved remission Status: Chronic (4) COPD (chronic obstructive pulmonary disease) Plan: Patient on at home oxygen 3L NC * Continue at home medications: * Albuterol inhaler ICD Codes: J44.9 - Chronic obstructive pulmonary disease, unspecified Status: Chronic (5) CKD (chronic kidney disease), stage III Plan: Stable. * Renally dose medications * Avoid nephrotoxins ICD Codes: N18.3 - Chronic kidney disease, stage 3 (moderate) Status: Chronic (6) HTN (hypertension) Plan: Pt has a pacemaker/defibrillator and CHF as well * Continue at home medications: * Amiodarone 200mg po qD * Carvedilol 3.125mg po BID * Losartan 25mg po qD * Furosemide 40mg tab qD * Aspirin 325mg qD ICD Codes: I10 - Essential (primary) hypertension Status: Chronic (7) Diabetes Plan: Patient states that DM is usually controlled * Hold at home medications * low dose SSI, not requiring much supplemental Novolog ICD Codes: E11.9 - Type 2 diabetes mellitus without complications Status: Chronic (8) FEN Plan: Fluids: PO hydration Electrolytes: monitor and replete as needed Nutrition: Diabetic diet DVT Prophylaxis: Early ambulation. Lovenox 30mg subQ q24hr GI Prophylaxis: None indicated at this time Status: Acute Brief History Mr. Tabares is a 82yo white male with a PMH of DM and HTN presenting with right hip pain. He states that this started 2 days ago when he went out to dinner he noticed that his right hip hurt a little, but was tolerable. Last night he was watching TV, when he realized he couldn't get out of his chair. Then this morning, he had to use the bathroom and could not get out of bed. He called an ambulance and had to be carried out. He says he is never experienced these symptoms before. He's never had any issues with any other joints. No changes in activity. Of note, 3 days ago he slipped and nearly fell while putting water underneath the cart at [facility], but caught himself. When he was catching himself he twisted to the right. He did not hit any part of his body. He usually walks with a cane. Describes the pain as a 10 out of 10 in located deep in his right lateral hip with no radiation. Worse with movement, slightly better with pain medication. No numbness or tingling. Imaging Last Impressions Pelvis CT 06/08/17 0000 Signed Impressions: Service Date/Time: Thursday, June 08, 2017 09:29 - CONCLUSION: 1. No acute fracture or dislocation. 2. Degenerative changes involving the lower lumbar spine. 3. Uncomplicated sigmoid diverticulosis. 4. Distal abdominal aortic aneurysm measuring 3.7 cm AP by 3.7 cm transverse. Max Briggs MD Hip and Pelvis X-Ray 06/08/17 0000 Signed Impressions: Service Date/Time: Thursday, June 08, 2017 08:24 - CONCLUSION: 1. No acute fracture or dislocation. 2. Degenerative changes involving the hips and lower lumbar spine. Max Briggs MD PE at Discharge GENERAL: This is a well-nourished, well-developed obese white male patient laying on his left side, in no apparent distress. Did not require assistance for sitting up today. SKIN: No rashes, ecchymoses or lesions. Cool and dry. HEAD: Atraumatic. Normocephalic. ENT: Nose without bleeding, purulent drainage or rhinorrhea. NECK: Trachea midline. No JVD or lymphadenopathy. Supple, nontender, no meningeal signs. CARDIOVASCULAR: Regular rate and rhythm without murmurs, gallops, or rubs. RESPIRATORY: Clear to auscultation. Breath sounds equal bilaterally. No wheezes , rales, or rhonchi. Improved aeration today. GASTROINTESTINAL: Abdomen soft, non-tender, nondistended. Hypoactive bowel sounds. No hepato-splenomegaly, or palpable masses. No guarding. MUSCULOSKELETAL: Extremities without clubbing, cyanosis, 1+ pitting edema to inferior knee bilaterally, improved. No right hip joint effusion, or edema noted . Tenderness at gluteus medius has resolved. Pain with movement of right hip has resolved but he continues to have limited ROM of right hip. Right hip with similar limitation of ROM but no pain. No calf tenderness. Negative Homans sign bilaterally. NEUROLOGICAL: Awake and alert. Motor and sensory grossly within normal limits. Five out of 5 muscle strength in all muscle groups. Normal speech. Hospital Course Patient was evaluated as noted above. No acute or dislocations noted on imaging studies. Given clinical exam showing no acute findings notable for intervention and MRI could not be performed, conservative management and pain control was initiated to include methadone at 2.5 mg twice daily and prednisone 20 mg twice a day given for pain control. Patient refused rehabilitation placement though this was recommended by PT on initial evaluation and reevaluation. Therefore, patient was discharged with home health orders and recommendation to follow up closely with PCP. Discharged in stable condition. Pt Condition on Discharge: Stable Discharge Disposition: Disch w/ Home Health Serv Discharge Instructions DIET: Follow Instructions for: Diabetic Diet Activities you can perform: Regular-No Restrictions Follow up Referrals: PCP Follow-up - 1 Week New Medications: Methadone (Methadone) 5 Mg Tab 2.5 MG PO BID, #30 TAB 0 Refills Oxycodone-Acetaminophen (Oxycodone-Acetaminophen) 5-325 mg Tab 1 TAB PO Q6H PRN for BREAKTHROUGH PAIN, #20 TAB Prednisone (Prednisone) 20 Mg Tab 20 MG PO BID for 10 Days, #20 TAB 0 Refills Sennosides-Docusate Sodium (Senna Plus 8.6-50 mg) 8.6 Mg-50 Mg Tab 1 TAB PO BID, #60 TAB 0 Refills Continued Medications: Albuterol 8.5 GM Inh (Proair Hfa 8.5 GM Inh) 90 Mcg/Act Aer 2 PUFF INH Q4-6H PRN for SHORTNESS OF BREATH, #1 INHALER 108 mcg/actuation Amiodarone (Amiodarone) 200 Mg Tab 200 MG PO DAILY for Regulate Heart Beat, #30 TAB 0 Refills Aspirin (Aspirin) 325 Mg Tab 325 MG PO DAILY, #30 TAB 0 Refills Carvedilol (Coreg) 3.125 Mg Tab 3.125 MG PO BID, #60 TAB 0 Refills Furosemide (Lasix) 40 Mg Tab 40 MG PO DAILY, #30 TAB 0 Refills Glipizide (Glipizide) 5 Mg Tab 5 MG PO DAILY for Blood Sugar Management, #30 TAB 0 Refills Take 30 minutes before a meal Imatinib Mesylate (Gleevec) 100 Mg Tab 400 MG PO DAILY Losartan (Losartan) 25 Mg Tab 25 MG PO DAILY for Blood Pressure Management, #30 TAB 0 Refills Lovastatin (Lovastatin) 20 Mg Tab 20 MG PO DAILY for Cholesterol Management, #30 TAB 0 Refills Cindy Eli MD R2 Jun 15, 2017 12:00
== END 2017-06-10 19:26 | disposition home health service (06) ==
LOC: NEPC 07:43 → NEDA 10:20 → NEPFCDU 12:03
PROVIDERS: ADMIT Family Medicine; ATTEND Family Medicine
DX: M25.551 Pain in right hip (principal); C92.10 Chronic myeloid leukemia, BCR/ABL-positive, not having achieved remission; R26.2 Difficulty in walking, not elsewhere classified; J44.9 Chronic obstructive pulmonary disease, unspecified; I13.0 Hypertensive heart and chronic kidney disease with heart failure and stage 1 through stage 4 chronic kidney disease, or unspecified chronic kidney disease; N18.3 Chronic kidney disease, stage 3 (moderate); E11.22 Type 2 diabetes mellitus with diabetic chronic kidney disease; R11.2 Nausea with vomiting, unspecified; M54.9 Dorsalgia, unspecified; I50.9 Heart failure, unspecified; Z95.0 Presence of cardiac pacemaker
CPT/HCPCS: 72192; 73502; 80048; 80053; 81001; 82948; 85025; 85610; 96372; 96374; 96375; 96376; 97110; 97162; 97530; 99285; G0378; G8987; G8988; J1650; J1815; J1885; J2270; J2405; J2920

== ENCOUNTER 2017-06-22 09:10 | Emergency (ER) | payer MEDICARE ==
[~2017-06-22] VITALS: Ht 175.3 cm; Wt 97.0 kg
[~2017-06-22 09:10] MED LIST changes: +ASPI-183 PO; -ASPI325T PO; -AZIT250T3 PO; -FERR1TAB36 PO; +LOSA25TA PO; +METH5TAB PO; -NOVOLOGSS SQ; +OXYC1TAB63 PO; -PRED10 PO; +PRED20 PO; +SENN1TAB PO
[2017-06-22 09:18] VITALS: BP 123/62; PULSE 75; RESP 16; TEMP 97.6; O2SAT 95
[2017-06-22] MEDS ORDERED: ONDANSETRON HCL 4 MG/2 ML VIAL IV PUSH ONE (09:30)
[2017-06-22] MEDS ORDERED: MORPHINE SULFATE 2 MG/ML INJ IV PUSH ONE (09:30)
[2017-06-22] MEDS ORDERED: KETOROLAC TROMETHAMINE 30 MG/ML (IVP) VIAL IV PUSH ONE (09:30)
--- NOTE | 2017-06-22 09:33 | PD ---
HPI Chief Complaint: Pain: Acute or Chronic Time Seen by Provider: 09:18 Travel History International Travel<30 days: No Contact w/Intl Traveler<30days: No Traveled to known affect area: No History of Present Illness HPI The patient is a 82-year-old male who presents to the emergency department for right lower back pain and hip pain. The patient was recently admitted to the hospital at the end of May for similar pain. The pain is located right lower back and radiates to the right hip, he is able to walk with the use of a walker. The patient was admitted to the hospital and physical therapy recommended that the patient go to custodial facility for physical therapy. However, the patient did not want to go to custodial facility and went home with home health care. Home healthcare evaluate the patient yesterday, however, the patient continues to have pain. According to EMS the patient was having hallucinations last night, according to the , where he heard trees being cut down. Upon arrival patient is alert and oriented 3, continues complaining of right hip pain. There is been no change in the character the patient's pain, but it has been persistent. The patient is inquiring whether surgery can be performed to alleviate his pain. He has not followed up with an orthopedist, however, he did follow-up with his primary physician who prescribed and pain medications. Symptoms are mild to moderate, there are no alleviating or exacerbating factors. PFSH Past Medical History Arthritis: No Asthma: No Autoimmune Disease: No Blood Disorders: No Anxiety: No Depression: No Heart Rhythm Problems: No Cancer: Yes ( (CML) LEUKEMIA/SKIN) Cardiovascular Problems: Yes High Cholesterol: No Chemotherapy: Yes Chest Pain: Yes Congestive Heart Failure: Yes COPD: Yes Cerebrovascular Accident: No Diabetes: Yes Patient Takes Glucophage: Yes Dialysis: Yes Diminished Hearing: No Endocrine: Yes GERD: Yes Glaucoma: No Genitourinary: No Headaches: Yes Hepatitis: No Hiatal Hernia: No Hypertension: Yes Immune Disorder: No Implanted Vascular Access Dvce: Yes Kidney Stones: Yes Medical other: Yes (reflux) Musculoskeletal: Yes (RIGHT HIP PAIN) Neurologic: Yes (HEADACHES AND MIGRAINES) Psychiatric: No Reproductive: No Respiratory: Yes (EMPHYSEMA) Immunizations Current: No Migraines: Yes Myocardial Infarction: No Radiation Therapy: Yes Renal Failure: No Seizures: No Sickle Cell Disease: No Sleep Apnea: Yes Thyroid Disease: No Ulcer: No Past Surgical History Abdominal Surgery: No AICD: No Appendectomy: No Arteriovenous Shunt: No Body Medical Devices: PACEMAKER Cardiac Surgery: No Cholecystectomy: No Ear Surgery: No Endocrine Surgery: No Eye Surgery: Yes (CATARACT X3 YEARS AGO. RIGHT EYE REPAIRED LAST WK DUE TO NOT BE ABLE TO SEE) Genitourinary Surgery: No Gynecologic Surgery: No Insulin Pump: No Joint Replacement: No Oral Surgery: Yes Pacemaker: No Thoracic Surgery: Yes (LUNG BIOPSY) Other Surgery: Yes (SKIN CA EXCISION) Family History Family Hypercholesterolemia: Yes Social History Alcohol Use: No Tobacco Use: No Substance Use: No Allergies-Medications (Allergen,Severity, Reaction): Coded Allergies: No Known Allergies (Verified , 09/19/15) Reported Meds & Prescriptions Reported Meds & Active Scripts Active Oxycodone-Acetaminophen 5-325 mg Tab 1 Tab PO Q6H PRN Methadone (Methadone HCl) 5 Mg Tab 2.5 Mg PO BID Prednisone 20 Mg Tab 20 Mg PO BID 10 Days Senna Plus 8.6-50 mg (Sennosides-Docusate Sodium) 8.6 Mg-50 Mg Tab 1 Tab PO BID Proair Hfa 8.5 GM Inh (Albuterol Sulfate) 90 Mcg/Act Aer 2 Puff INH Q4-6H PRN 108 mcg/actuation Reported Losartan (Losartan Potassium) 25 Mg Tab 25 Mg PO DAILY Amiodarone (Amiodarone HCl) 200 Mg Tab 200 Mg PO DAILY Coreg (Carvedilol) 3.125 Mg Tab 3.125 Mg PO BID Aspirin 325 Mg Tab 325 Mg PO DAILY Lovastatin 20 Mg Tab 20 Mg PO DAILY Glipizide 5 Mg Tab 5 Mg PO DAILY Take 30 minutes before a meal Lasix (Furosemide) 40 Mg Tab 40 Mg PO DAILY Gleevec (Imatinib Mesylate) 100 Mg Tab 400 Mg PO DAILY Review of Systems Except as stated in HPI: all other systems reviewed are Neg Cardiovascular: No: Chest Pain or Discomfort Respiratory: No: Shortness of Breath Gastrointestinal: No: Nausea, Vomiting, Abdominal Pain Musculoskeletal: Positive: Limited ROM, Pain Neurologic: Positive: Change in Mentation (patient was having hallucinations last night, currently resolved), No: Paresthesia, Sensory Disturbance Physical Exam Narrative GENERAL: Awake, alert, pleasant 82-year-old male who appears his stated age and is in no acute respiratory distress. SKIN: Focused skin assessment warm/dry. HEAD: Atraumatic. Normocephalic. EYES: Pupils equal and round. No scleral icterus. No injection or drainage. ENT: No nasal bleeding or discharge. Mucous membranes pink and moist. NECK: Trachea midline. No JVD. CARDIOVASCULAR: Regular rate and rhythm. No murmur appreciated. RESPIRATORY: No accessory muscle use. Clear to auscultation. Breath sounds equal bilaterally. GASTROINTESTINAL: Abdomen soft, obese, no guarding or rigidity. MUSCULOSKELETAL: Bilateral lower extremity pitting edema. Pain located over the right sacroiliac and the lateral right hip, he is able flex the hip and knee to 45 on the right. Full range of motion of the left lower extremity. Back: No tenderness of the thoracic or lumbar vertebrae. Mild tenderness of the right sacroiliac joint. Neuro: Patient alert and oriented to person and place. He follows commands without difficulty. Sensation is intact lower extremity is bilaterally. PSYCHIATRIC: Appropriate mood and affect; insight and judgment normal. Data Data Last Documented VS Vital Signs Date Time Temp Pulse Resp B/P (MAP) Pulse Ox O2 Delivery O2 Flow Rate FiO2 06/22/17 09:21 73 17 06/22/17 09:18 97.6 123/62 (82) 95 Orders Orders Complete Blood Count With Diff (06/22/17 09:27) Comprehensive Metabolic Panel (06/22/17 09:27) Urinalysis - C+S If Indicated (06/22/17 09:27) Morphine Inj (Morphine Inj) (06/22/17 09:30) Ketorolac Inj (Toradol Inj) (06/22/17 09:30) Ondansetron Inj (Zofran Inj) (06/22/17 09:30) Ed Discharge Order (06/22/17 11:28) Labs Laboratory Tests Test 06/22/17 09:55 White Blood Count 15.9 TH/MM3 Red Blood Count 3.11 MIL/MM3 Hemoglobin 11.5 GM/DL Hematocrit 33.4 % Mean Corpuscular Volume 107.4 FL Mean Corpuscular Hemoglobin 36.9 PG Mean Corpuscular Hemoglobin Concent 34.4 % Red Cell Distribution Width 14.4 % Platelet Count 207 TH/MM3 Mean Platelet Volume 8.5 FL Neutrophils (%) (Auto) 81.2 % Lymphocytes (%) (Auto) 11.6 % Monocytes (%) (Auto) 6.9 % Eosinophils (%) (Auto) 0.1 % Basophils (%) (Auto) 0.2 % Neutrophils # (Auto) 12.9 TH/MM3 Lymphocytes # (Auto) 1.8 TH/MM3 Monocytes # (Auto) 1.1 TH/MM3 Eosinophils # (Auto) 0.0 TH/MM3 Basophils # (Auto) 0.0 TH/MM3 CBC Comment DIFF FINAL Differential Comment Urine Color YELLOW Urine Turbidity CLEAR Urine pH 5.5 Urine Specific Dewar 1.016 Urine Protein NEG mg/dL Urine Glucose (UA) NEG mg/dL Urine Ketones NEG mg/dL Urine Occult Blood NEG Urine Nitrite NEG Urine Bilirubin NEG Urine Urobilinogen LESS THAN 2.0 MG/DL Urine Leukocyte Esterase NEG Urine RBC LESS THAN 1 /hpf Urine WBC LESS THAN 1 /hpf Microscopic Urinalysis Comment CULT NOT INDICATED Blood Urea Nitrogen 70 MG/DL Creatinine 2.73 MG/DL Random Glucose 88 MG/DL Total Protein 6.4 GM/DL Albumin 3.4 GM/DL Calcium Level 8.5 MG/DL Alkaline Phosphatase 38 U/L Aspartate Amino Transf (AST/SGOT) 30 U/L Alanine Aminotransferase (ALT/SGPT) 40 U/L Total Bilirubin 0.9 MG/DL Sodium Level 139 MEQ/L Potassium Level 4.5 MEQ/L Chloride Level 104 MEQ/L Carbon Dioxide Level 25.2 MEQ/L Anion Gap 10 MEQ/L Estimat Glomerular Filtration Rate 23 ML/MIN [facility] Medical Decision Making Medical Screen Exam Complete: Yes Emergency Medical Condition: Yes Medical Record Reviewed: Yes Interpretation(s) Laboratory Tests Test 06/22/17 09:55 White Blood Count 15.9 TH/MM3 Red Blood Count 3.11 MIL/MM3 Hemoglobin 11.5 GM/DL Hematocrit 33.4 % Mean Corpuscular Volume 107.4 FL Mean Corpuscular Hemoglobin 36.9 PG Mean Corpuscular Hemoglobin Concent 34.4 % Red Cell Distribution Width 14.4 % Platelet Count 207 TH/MM3 Mean Platelet Volume 8.5 FL Neutrophils (%) (Auto) 81.2 % Lymphocytes (%) (Auto) 11.6 % Monocytes (%) (Auto) 6.9 % Eosinophils (%) (Auto) 0.1 % Basophils (%) (Auto) 0.2 % Neutrophils # (Auto) 12.9 TH/MM3 Lymphocytes # (Auto) 1.8 TH/MM3 Monocytes # (Auto) 1.1 TH/MM3 Eosinophils # (Auto) 0.0 TH/MM3 Basophils # (Auto) 0.0 TH/MM3 CBC Comment DIFF FINAL Differential Comment Urine Color YELLOW Urine Turbidity CLEAR Urine pH 5.5 Urine Specific Dewar 1.016 Urine Protein NEG mg/dL Urine Glucose (UA) NEG mg/dL Urine Ketones NEG mg/dL Urine Occult Blood NEG Urine Nitrite NEG Urine Bilirubin NEG Urine Urobilinogen LESS THAN 2.0 MG/DL Urine Leukocyte Esterase NEG Urine RBC LESS THAN 1 /hpf Urine WBC LESS THAN 1 /hpf Microscopic Urinalysis Comment CULT NOT INDICATED Blood Urea Nitrogen 70 MG/DL Creatinine 2.73 MG/DL Random Glucose 88 MG/DL Total Protein 6.4 GM/DL Albumin 3.4 GM/DL Calcium Level 8.5 MG/DL Alkaline Phosphatase 38 U/L Aspartate Amino Transf (AST/SGOT) 30 U/L Alanine Aminotransferase (ALT/SGPT) 40 U/L Total Bilirubin 0.9 MG/DL Sodium Level 139 MEQ/L Potassium Level 4.5 MEQ/L Chloride Level 104 MEQ/L Carbon Dioxide Level 25.2 MEQ/L Anion Gap 10 MEQ/L Estimat Glomerular Filtration Rate 23 ML/MIN Differential Diagnosis Differential diagnosis includes delirium secondary to pain medication, delirium secondary to prednisone use, back pain with radiculopathy, sciatica, arthritis, arthropathy, chronic pain. Narrative Course IV was established, labs are drawn and sent, and the patient was placed on cardiac telemetry monitoring and continuous pulse oximetry monitoring. The patient was administer morphine, Toradol, and Zofran. I reviewed the EMR, the patient was evaluated and admitted in May and had x-ray of the pelvis and right hip followed by CT of the pelvis which revealed degenerative changes but no fractures. I reviewed the admission notes and discharge summary, patient was evaluated by physical therapy was recommended a custodial facility. However, he declined custodial facility and wanted home with home health care. The patient may benefit from outpatient follow-up with an orthopedist. The patient's white count is mildly elevated at 15.9, however, the patient has been on prednisone, may be elevated secondary to margination from steroids, the patient is afebrile. UA is negative. Creatinine is mildly elevated, appears to be at baseline. The patient was reevaluated at 11:20 AM. The patient is advised to follow with pain interventional list and/or orthopedics on an outpatient basis. The patient be discharged home with his . Diagnosis Primary Impression: Right hip pain Patient Instructions: General Instructions Additional Instructions: Follow-up with an orthopedist and/or pain interventional's on an outpatient basis. Monitor narcotic use. Return if symptoms worsen or progress. Med/Other Pt SpecificInfo: No Change to Meds Disposition: 01 DISCHARGE HOME Condition: Stable Wang Peralta MD Jun 22, 2017 09:33
[2017-06-22 10:32] LABS: AUTOMATED NEUTROPHIL # 12.9 TH/MM3 (1.8-7.7); BASOPHIL % 0.2 % (0.0-2.0); EOSINOPHIL % 0.1 % (0.0-4.0); HEMATOCRIT 33.4 % (39.0-51.0); HEMO FLAGS DIFF FINAL; LYMPH % 11.6 % (9.0-44.0); LYMPHOCYTE # 1.8 TH/MM3 (1.0-4.8); MEAN CELL VOLUME 107.4 FL (80.0-100.0); MEAN CORPUSCULAR HEMOGLOBIN 36.9 PG (27.0-34.0); MEAN CORPUSCULAR HGB CONC 34.4 % (32.0-36.0); MONO % 6.9 % (0.0-8.0); NEUT % 81.2 % (16.0-70.0); PLATELET COUNT 207 TH/MM3 (150-450); RED BLOOD COUNT 3.11 MIL/MM3 (4.50-5.90); RED CELL DISTRIBUTION WIDTH 14.4 % (11.6-17.2); WHITE BLOOD COUNT 15.9 TH/MM3 (4.0-11.0)
[2017-06-22 10:44] LABS: BLOOD, URINE NEG (NEG); GLUCOSE,URINE NEG (NEG); KETONE, URINE NEG (NEG); NITRITE,URINE NEG (NEG); PH, URINE 5.5 (5.0-8.5); URINE COLOR YELLOW (YELLW/STRAW)
[2017-06-22 10:45] LABS: COMMENT (UR) CULT NOT INDICATED; CULTURE IF INDICATED CULT NOT INDICATED
[2017-06-22 10:47] LABS: ALT (GPT) 40 U/L (12-78)
[2017-06-22 10:49] LABS: ALKALINE PHOSPHATASE 38 U/L (45-117); TOTAL BILIRUBIN ADULT 0.9 MG/DL (0.2-1.0)
[2017-06-22 11:11] LABS: ANION GAP 10 MEQ/L (5-15); AST (GOT) 30 U/L (15-37); BICARBONATE 25.2 MEQ/L (21.0-32.0); BLOOD UREA NITROGEN 70 MG/DL (7-18); CHLORIDE 104 MEQ/L (98-107); GLOMERULAR FILTRATION RATE 23 ML/MIN (>89); POTASSIUM 4.5 MEQ/L (3.5-5.1); SODIUM (NA) 139 MEQ/L (136-145)
== END 2017-06-22 11:58 | disposition home or self-care (01) ==
LOC: NEPC 09:10
DX: M25.551 Pain in right hip (principal); R44.0 Auditory hallucinations; D72.829 Elevated white blood cell count, unspecified; E11.9 Type 2 diabetes mellitus without complications; I10 Essential (primary) hypertension; G47.30 Sleep apnea, unspecified; Z79.84 Long term (current) use of oral hypoglycemic drugs; Z86.79 Personal history of other diseases of the circulatory system; Z87.09 Personal history of other diseases of the respiratory system; Z87.19 Personal history of other diseases of the digestive system; Z87.442 Personal history of urinary calculi; Z87.39 Personal history of other diseases of the musculoskeletal system and connective tissue; Z86.69 Personal history of other diseases of the nervous system and sense organs
CPT/HCPCS: 80053; 81001; 85025; 96374; 96375; 99284; J1885; J2270; J2405

== ENCOUNTER 2017-06-24 14:56 | Inpatient (IN) | payer MEDICARE ==
[~2017-06-24] VITALS: Ht 175.3 cm; Wt 86.3 kg
[2017-06-24] VITALS (12 sets, daily range): BP systolic 67–131; BP diastolic 37–80; PULSE 56–68; RESP 12–28; TEMP 97.2–98.7; O2SAT 90–100
[2017-06-24] MEDS ORDERED: SODIUM CHLOR 0.9% 1000 ML INJ 1,000 ML IV ONE ×2 (15:45→16:00)
--- NOTE | 2017-06-24 15:54 | PD ---
HPI Chief Complaint: Pain: Acute or Chronic Time Seen by Provider: 15:43 Travel History International Travel<30 days: No Contact w/Intl Traveler<30days: No Traveled to known affect area: No History of Present Illness HPI 82 year old male presents to the ED via [facility] with abdominal pain. is at bedside. Per [facility], patient has right upper and lower quadrant pain that radiates to his lower back. Today the patient also complains of shortness of breath, diffuse abdominal pain, and one episode of vomiting. Pain is sharp and rated 10/10. Earlier today he was noted to be hypotensive during home health visit. states that he has been drinking lots of fluids but declines solid food. Home health nurse called for [facility] transport to ED. En route BP was 81/46, SpO2 80%. He has been constipated and has had decreased urine output for 3 days. ROS positive for sweating and chills. Denies fever, chest pain, headache , weakness. He was seen in the ED 2 days ago for right lower back, and hip pain. He was give was given morphine, Toradol, and Zofran in the ED. Modifying Factors: None Associated Signs & Symptoms: Abdominal pain, shortness of breath, vomiting, lethargy, decreased by mouth intake Risk Factors: Elderly PFSH Past Medical History Arthritis: No Asthma: No Autoimmune Disease: No Blood Disorders: No Anxiety: No Depression: No Heart Rhythm Problems: No Cancer: Yes ( (CML) LEUKEMIA/SKIN) Cardiovascular Problems: Yes High Cholesterol: No Chemotherapy: Yes Chest Pain: Yes Congestive Heart Failure: Yes COPD: Yes Cerebrovascular Accident: No Diabetes: Yes Dialysis: Yes Diminished Hearing: No Endocrine: Yes GERD: Yes Glaucoma: No Genitourinary: No Headaches: Yes Hepatitis: No Hiatal Hernia: No Hypertension: Yes Immune Disorder: No Implanted Vascular Access Dvce: Yes Kidney Stones: Yes Musculoskeletal: Yes (RIGHT HIP PAIN) Neurologic: Yes (HEADACHES AND MIGRAINES) Psychiatric: No Reproductive: No Respiratory: Yes (EMPHYSEMA) Immunizations Current: No Migraines: Yes Myocardial Infarction: No Radiation Therapy: Yes Renal Failure: No Seizures: No Sickle Cell Disease: No Sleep Apnea: Yes Thyroid Disease: No Ulcer: No Past Surgical History Abdominal Surgery: No AICD: No Appendectomy: No Arteriovenous Shunt: No Body Medical Devices: PACEMAKER Cardiac Surgery: No Cholecystectomy: No Ear Surgery: No Endocrine Surgery: No Eye Surgery: Yes (CATARACT X3 YEARS AGO. RIGHT EYE REPAIRED LAST WK DUE TO NOT BE ABLE TO SEE) Genitourinary Surgery: No Gynecologic Surgery: No Insulin Pump: No Joint Replacement: No Oral Surgery: Yes Pacemaker: No Thoracic Surgery: Yes (LUNG BIOPSY) Other Surgery: Yes (SKIN CA EXCISION) Family History Family Hypercholesterolemia: Yes Social History Alcohol Use: No Tobacco Use: No Substance Use: No Allergies-Medications (Allergen,Severity, Reaction): Coded Allergies: No Known Allergies (Verified , 09/19/15) Reported Meds & Prescriptions Reported Meds & Active Scripts Active Methadone (Methadone HCl) 5 Mg Tab 2.5 Mg PO BID Senna Plus 8.6-50 mg (Sennosides-Docusate Sodium) 8.6 Mg-50 Mg Tab 1 Tab PO BID Proair Hfa 8.5 GM Inh (Albuterol Sulfate) 90 Mcg/Act Aer 2 Puff INH Q4-6H PRN 108 mcg/actuation Reported Novolog Inj (Insulin Aspart) 1,000 Unit/10 Ml Vial 0 SQ ACHS Sliding Scale as directed. Prednisone 10 Mg Tab 10 Mg PO DAILY PRN Ferrous Sulfate 325 Mg (65 Mg Iron) Tablet 325 Mg PO BIDPC Amiodarone (Amiodarone HCl) 200 Mg Tab 200 Mg PO DAILY Coreg (Carvedilol) 3.125 Mg Tab 3.125 Mg PO BID Aspirin 325 Mg Tab 325 Mg PO DAILY Glipizide 5 Mg Tab 5 Mg PO DAILY Take 30 minutes before a meal Lasix (Furosemide) 40 Mg Tab 40 Mg PO DAILY Gleevec (Imatinib Mesylate) 100 Mg Tab 400 Mg PO DAILY Review of Systems Except as stated in HPI: all other systems reviewed are Neg Physical Exam Narrative GENERAL: Obese elderly male. Lying in bed. In moderate distress. Awake, lethargic. SKIN: Warm and dry. HEAD: Atraumatic. Normocephalic. EYES: Pupils equal and round. No scleral icterus. No injection or drainage. ENT: No nasal bleeding or discharge. Mucous membranes pink and moist. NECK: Trachea midline. No JVD. CARDIOVASCULAR: Regular rate and rhythm. RESPIRATORY: No accessory muscle use. Clear to auscultation. Breath sounds equal bilaterally. GASTROINTESTINAL: Abdomen soft, protuberant, diffusely tender to palpation throughout without guarding or rebound. Hepatic and splenic margins not palpable. MUSCULOSKELETAL: Extremities without clubbing, cyanosis. 1+ edema below the knee No obvious deformities. RECTAL EXAM: No masses or tenderness, stool is brown. Hemoccult positive. NEUROLOGICAL: Awake and alert. No obvious cranial nerve deficits. Motor grossly within normal limits. Normal speech. PSYCHIATRIC: Appropriate mood and affect; insight and judgment normal. Data Data Last Documented VS Vital Signs Date Time Temp Pulse Resp B/P (MAP) Pulse Ox O2 Delivery O2 Flow Rate FiO2 06/24/17 19:00 68 28 127/80 (96) 98 Venturi Mask 50 06/24/17 18:38 6.00 06/24/17 14:57 98.7 Orders Orders Sepsis Workup Initiated (06/24/17 ) Complete Blood Count With Diff (06/24/17 15:15) Comprehensive Metabolic Panel (06/24/17 15:15) Lactic Acid Sepsis Protocol (06/24/17 15:15) Ckmb (Isoenzyme) Profile (06/24/17 15:15) Troponin I (06/24/17 15:15) Urinalysis - C+S If Indicated (06/24/17 15:15) Blood Culture (06/24/17 15:15) Chest, Single Ap (06/24/17 15:15) Blood Glucose (06/24/17 15:15) Ecg Monitoring (06/24/17 15:15) Iv Access Insert/Monitor (06/24/17 15:15) Oximetry (06/24/17 15:15) Oxygen Administration (06/24/17 15:15) B-Type Natriuretic Peptide (06/24/17 15:15) Prothrombin Time / Inr (Pt) (06/24/17 15:43) Act Partial Throm Time (Ptt) (06/24/17 15:43) Arterial Blood Gas (Abg) (06/24/17 15:43) Blood Culture (06/24/17 15:43) Urinary Catheter Insert/Apply (06/24/17 15:43) Type And Screen (06/24/17 15:43) Sodium Chlor 0.9% 1000 Ml Inj (Ns 1000 M (06/24/17 15:45) Lactic Acid Sepsis Protocol (06/24/17 15:43) Sodium Chlor 0.9% 1000 Ml Inj (Ns 1000 M (06/24/17 16:00) Urine Culture (06/24/17 15:55) Dextrose 50% In Arnaud (Syr) Inj (D50w (Syr (06/24/17 18:09) CKMB (06/24/17 16:30) CKMB% (06/24/17 16:30) Ct Abd/Pel W/O Iv Contrast (06/24/17 18:56) Vancomycin Inj (Vancomycin Inj) (06/24/17 18:58) Piperacil-Tazo 4.5 Gm Premix (Zosyn 4.5 (06/24/17 18:58) Dextrose 50% In Arnaud (Vial) Inj (D50w (Vi (06/24/17 19:15) Admit Order (Ed Use Only) (06/24/17 19:20) Labs Laboratory Tests Test 06/24/17 15:30 06/24/17 15:55 06/24/17 16:05 06/24/17 16:30 White Blood Count 3.3 TH/MM3 Red Blood Count 2.52 MIL/MM3 Hemoglobin 9.0 GM/DL Hematocrit 27.0 % Mean Corpuscular Volume 107.2 FL Mean Corpuscular Hemoglobin 35.7 PG Mean Corpuscular Hemoglobin Concent 33.3 % Red Cell Distribution Width 14.6 % Platelet Count 114 TH/MM3 Mean Platelet Volume 7.9 FL Neutrophils (%) (Auto) 85.3 % Lymphocytes (%) (Auto) 9.0 % Monocytes (%) (Auto) 5.6 % Eosinophils (%) (Auto) 0.0 % Basophils (%) (Auto) 0.1 % Neutrophils # (Auto) 2.8 TH/MM3 Lymphocytes # (Auto) 0.3 TH/MM3 Monocytes # (Auto) 0.2 TH/MM3 Eosinophils # (Auto) 0.0 TH/MM3 Basophils # (Auto) 0.0 TH/MM3 CBC Comment AUTO DIFF Differential Total Cells Counted 100 Neutrophils % (Manual) 52 % Band Neutrophils % 29 % Lymphocytes % 10 % Monocytes % 4 % Neutrophils # (Manual) 2.8 TH/MM3 Metamyelocytes 5 % Differential Comment FINAL DIFF MANUAL Toxic Granulation 1+ Dohle Bodies PRESENT Platelet Estimate LOW Platelet Morphology Comment NORMAL B-Type Natriuretic Peptide 124 PG/ML Urine Color YELLOW Urine Turbidity CLOUDY Urine pH 5.0 Urine Specific Marshall 1.016 Urine Protein 30 mg/dL Urine Glucose (UA) NEG mg/dL Urine Ketones NEG mg/dL Urine Occult Blood LARGE Urine Nitrite NEG Urine Bilirubin NEG Urine Urobilinogen 2.0 MG/DL Urine Leukocyte Esterase NEG Urine RBC 2 /hpf Urine WBC 2 /hpf Urine Bacteria OCC /hpf Urine Hyaline Casts 5 /lpf Microscopic Urinalysis Comment CATH-CULTURE IND Lactic Acid Level 1.9 mmol/L Prothrombin Time 11.9 SEC Prothromb Time International Ratio 1.1 RATIO Activated Partial Thromboplast Time 31.7 SEC Blood Urea Nitrogen 120 MG/DL Creatinine 4.68 MG/DL Random Glucose 44 MG/DL Total Protein 4.6 GM/DL Albumin 1.9 GM/DL Calcium Level 6.9 MG/DL Alkaline Phosphatase 48 U/L Aspartate Amino Transf (AST/SGOT) 139 U/L Alanine Aminotransferase (ALT/SGPT) 61 U/L Total Bilirubin 0.9 MG/DL Sodium Level 139 MEQ/L Potassium Level 4.6 MEQ/L Chloride Level 106 MEQ/L Carbon Dioxide Level 21.5 MEQ/L Anion Gap 12 MEQ/L Estimat Glomerular Filtration Rate 12 ML/MIN Protein Corrected Calcium 8.2 MG/DL Total Creatine Kinase 2637 U/L Creatine Kinase MB 57.8 NG/ML Creatine Kinase MB % 2.2 % Troponin I 0.19 NG/ML MDM Medical Decision Making Medical Screen Exam Complete: Yes Emergency Medical Condition: Yes Medical Record Reviewed: Yes Interpretation(s) EKG shows normal sinus rhythm at the rate of 64 bpm with a left bundle branch block pattern unchanged from previous EKG on record. Laboratory Tests Test 06/24/17 15:30 06/24/17 15:55 06/24/17 16:05 06/24/17 16:30 White Blood Count 3.3 TH/MM3 (4.0-11.0) Red Blood Count 2.52 MIL/MM3 (4.50-5.90) Hemoglobin 9.0 GM/DL (13.0-17.0) Hematocrit 27.0 % (39.0-51.0) Mean Corpuscular Volume 107.2 FL (80.0-100.0) Mean Corpuscular Hemoglobin 35.7 PG (27.0-34.0) Platelet Count 114 TH/MM3 (150-450) Neutrophils (%) (Auto) 85.3 % (16.0-70.0) Lymphocytes # (Auto) 0.3 TH/MM3 (1.0-4.8) Band Neutrophils % 29 % (0-6) Metamyelocytes 5 % (0-1) Toxic Granulation 1+ (NORMAL) Dohle Bodies PRESENT (NONE SEEN) Platelet Estimate LOW (NORMAL) B-Type Natriuretic Peptide 124 PG/ML (0-100) Urine Turbidity CLOUDY (CLEAR) Urine Protein 30 mg/dL (NEG-TRACE) Urine Occult Blood LARGE (NEG) Urine Bacteria OCC /hpf (NONE) Prothrombin Time 11.9 SEC (9.8-11.6) Activated Partial Thromboplast Time 31.7 SEC (24.3-30.1) Blood Urea Nitrogen 120 MG/DL (7-18) Creatinine 4.68 MG/DL (0.60-1.30) Random Glucose 44 MG/DL (74-106) Total Protein 4.6 GM/DL (6.4-8.2) Albumin 1.9 GM/DL (3.4-5.0) Calcium Level 6.9 MG/DL (8.5-10.1) Aspartate Amino Transf (AST/SGOT) 139 U/L (15-37) Estimat Glomerular Filtration Rate 12 ML/MIN (>89) Protein Corrected Calcium 8.2 MG/DL (8.5-10.1) Total Creatine Kinase 2637 U/L (39-308) Creatine Kinase MB 57.8 NG/ML (0.5-3.6) Troponin I 0.19 NG/ML (0.02-0.05) Last 24 hours Impressions Chest X-Ray 06/24/17 1515 Signed Impressions: Service Date/Time: Saturday, June 24, 2017 16:41 - CONCLUSION: No acute cardiopulmonary abnormality is identified. Chronic interstitial opacities at the lung bases suggest interstitial lung disease. Alli Cohen MD Differential Diagnosis Abdominal pain, hypotension, decreased by mouth intake, lethargy, shortness of breath: Acute intra-abdominal processes versus dehydration versus obstruction versus sepsis versus UTI versus metabolic issues Narrative Course Patient's blood pressure was initially fairly low in the ER and 2 IV fluid boluses were initiated on the patient. Patient was initial chest x-ray did not show any signs of acute pulmonary processes but does show some signs of interstitial pulmonary disease. Patient's white blood cell count is low at 3.3. However, he has bandemia. Considering symptoms, IV antibiotics Zosyn and vancomycin were initiated after cultures were done. Additional IV fluids had to be given due to ongoing hypotension. With 3 L of fluid, hypotension is improved. Patient's lab work shows initial hypoglycemia and D50 was given. The rest of lab work shows significant worsening renal function, and acute renal failure was suspected. CAT scan was initially ordered as a CT with contrast but CT without contrast to be done due to the renal failure. NG tube was placed by nurse in the ER due to vomiting of greenish bile. Patient's abdomen was moderately distended as well and there is concern of obstruction. At this point, considering patient's hypotension, concern for sepsis, and condition, my plan would be to admit the patient for further treatment in the ICU. Case was discussed with Dr. De Los Santos for admission. Aggregate critical care time was 45 minutes. Time to perform other separately billable procedures was not included in the critical care time. My time did not include minutes spent treating any other patients simultaneously or on activities that did not directly contribute to the patient's treatment. The services I provided to this patient were to treat and/or prevent clinically significant deterioration that could result in: Septic shock, worsening renal failure, dysrhythmias, metabolic issues, I provided critical care services requiring my management, as noted below: Chart data review, documentation time, medication orders and management, vital sign assessments/reviewing monitor data, ordering and reviewing lab tests, ordering and interpreting/reviewing x-rays and diagnostic studies, care of the patient and discussion of the patient with the admitting physicians. Diagnosis Primary Impression: Acute renal failure Additional Impressions: Severe sepsis Hypotension Admitting Information Admitting Physician Requests: it Luis Trejo MD Jun 24, 2017 15:54
[2017-06-24 16:33] LABS: AUTOMATED NEUTROPHIL # 2.8 TH/MM3 (1.8-7.7); BASOPHIL % 0.1 % (0.0-2.0); LYMPHOCYTE # 0.3 TH/MM3 (1.0-4.8); MEAN CELL VOLUME 107.2 FL (80.0-100.0); MEAN CORPUSCULAR HEMOGLOBIN 35.7 PG (27.0-34.0); MEAN CORPUSCULAR HGB CONC 33.3 % (32.0-36.0); MEAN PLATELET VOLUME 7.9 FL (7.0-11.0); MONO % 5.6 % (0.0-8.0); MONOCYTE # 0.2 TH/MM3 (0-0.9); NEUT % 85.3 % (16.0-70.0); PLATELET COUNT 114 TH/MM3 (150-450); RED BLOOD COUNT 2.52 MIL/MM3 (4.50-5.90); RED CELL DISTRIBUTION WIDTH 14.6 % (11.6-17.2); WHITE BLOOD COUNT 3.3 TH/MM3 (4.0-11.0)
[2017-06-24] MEDS ORDERED: FERR325T18 PO (16:42)
[2017-06-24] MEDS ORDERED: PRED10 PO (16:42)
[2017-06-24] MEDS ORDERED: NOVOLOGP2 SQ (16:55)
[2017-06-24 17:17] LABS: BILIRUBIN, URINE NEG (NEG); BLOOD, URINE LARGE (NEG); GLUCOSE,URINE NEG (NEG); HYALINE CAST, URINE 5 /lpf (RARE); KETONE, URINE NEG (NEG); NITRITE,URINE NEG (NEG); URINE COLOR YELLOW (YELLW/STRAW); URINE LEUKOCYTE ESTERASE NEG (NEG)
[2017-06-24 17:22] LABS: INTERNATIONAL NORMALIZED RATIO 1.1 RATIO; PROTHROMBIN TIME - PATIENT 11.9 SEC (9.8-11.6)
--- NOTE | 2017-06-24 17:30 | RADRPT ---
EXAM DATE/TIME: 06/24/2017 16:41 [facility] COMPARISON: CHEST SINGLE AP, May 21, 2016, 9:40. CT ABDOMEN & PELVIS W/O CONTRAST, September 19, 2015, 19:19. CHEST SINGLE AP, December 31, 2016, 12:27. INDICATIONS : Short of breath. MEDICAL HISTORY : None. SURGICAL HISTORY : Pacemaker. ENCOUNTER: Initial ACUITY: 1 day PAIN SCORE: 0/10 LOCATION: Bilateral chest FINDINGS: Portable AP view of the chest demonstrates a normal-sized cardiac silhouette. Single lead left chest wall cardiac pacing device /AICD is present. There are stable interstitial opacities at both lung bas es. No pleural effusion or pneumothorax is identified. Bones and soft tissues demonstrate no acute fi nding. CONCLUSION: No acute cardiopulmonary abnormality is identified. Chronic interstitial opacities at the lung bases suggest interstitial lung disease. Alli Cohen MD on June 24, 2017 at 17:28 Board Certified Radiologist. This report was verified electronically.
[2017-06-24 17:34] LABS: BACTERIA, URINE OCC /hpf
[2017-06-24 18:02] LABS: ALBUMIN 1.9 GM/DL (3.4-5.0); BICARBONATE 21.5 MEQ/L (21.0-32.0); CALCIUM 6.9 MG/DL (8.5-10.1); CALCIUM-PROTEIN CORRECTED 8.2 MG/DL (8.5-10.1); CREATININE 4.68 MG/DL (0.60-1.30); TOTAL BILIRUBIN ADULT 0.9 MG/DL (0.2-1.0); TOTAL PROTEIN 4.6 GM/DL (6.4-8.2); TROPONIN I 0.19 NG/ML (0.02-0.05)
[2017-06-24 18:08] LABS: BANDS 29 % (0-6); LYMPHOCYTES 10 % (9-44); METAMYELOCYTES 5 % (0-1); MONOCYTES 4 % (0-8); NEUTROPHIL # MANUAL DIFF 2.8 TH/MM3 (1.8-7.7); POLYS (SEG NEUTROPHILS) 52 % (16-70)
[2017-06-24 18:09] LABS: DOHLE BODIES PRESENT (NONE SEEN); TOXIC GRANULATION 1+ (NORMAL)
[2017-06-24] MEDS ORDERED: DEXTROSE 50% IN WATER 50 ML SYRINGE ONE (18:09)
[2017-06-24] MEDS ORDERED: PIPERACIL-TAZO 4.5 GM PREMIX 100 ML IV STA (18:58)
[2017-06-24] MEDS ORDERED: VANCOMYCIN INJ 1,000 MG in SODIUM CHLOR 0.9% 250 ML INJ 250 ML IV STA (18:58)
[2017-06-24] MEDS ORDERED: DEXTROSE 50% IN WATER 50 ML VIAL(D50) IV PUSH ONE (19:15)
[2017-06-24] MEDS ORDERED: SODIUM CHLOR 0.9% 1000 ML INJ 1,000 ML IV SCH (20:18)
[2017-06-24] MEDS ORDERED: GLUCAGON 1 MG/ML VIAL OTHER PRN (20:30)
[2017-06-24] MEDS ORDERED: DEXTROSE 50% IN WATER 50 ML VIAL(D50) IV PUSH PRN (20:30)
[2017-06-24] MEDS ORDERED: RESP: ALBUTEROL 2.5 MG/3 ML NEB (PRN) INH (20:30)
[2017-06-24] MEDS ORDERED: LACTULOSE SYRUP 20 GM/30 ML CUP PO PRN (20:30)
[2017-06-24] MEDS ORDERED: SENNOSIDES 8.6 MG TAB PO PRN (20:30)
[2017-06-24] MEDS ORDERED: MISCELLANEOUS NURSING INFORMATION XX SCH (20:30)
[2017-06-24] MEDS ORDERED: CHLORHEXIDINE GLUCONATE 2 % 1 PACK (2 CLOTHS) TOP PRN (20:30)
[2017-06-24] MEDS ORDERED: BISACODYL 10 MG SUPP RECTAL PRN (20:30)
[2017-06-24] MEDS ORDERED: ACETAMINOPHEN 325 MG TAB PO PRN (20:30)
[2017-06-24] MEDS ORDERED: MAGNESIUM HYDROXIDE SUSP 30 ML CUP PO PRN (20:30)
[2017-06-24] MEDS ORDERED: DOCUSATE SODIUM 50 MG/SENNA 8.6 MG TAB PO SCH (21:00)
[2017-06-24] MEDS: SODIUM CHLORIDE 0.9% FLUSH 10 ML FLUSH IV FLUSH SCH (21:00)
[2017-06-24] MEDS ORDERED: NOREPINEPHRINE INJ 4 MG in SODIUM CHLOR 0.9% 250 ML INJ 246 ML IV PRN (21:00)
[2017-06-24] MEDS ORDERED: TERBUTALINE INJ 1 MG/ML AMP SQ PRN (21:00)
--- NOTE | 2017-06-24 21:19 | RADRPT ---
EXAM DATE/TIME: 06/24/2017 19:29 [facility] COMPARISON: CT ABDOMEN & PELVIS W/O CONTRAST, December 31, 2016, 13:38. INDICATIONS : Right upper quadrant pain. ORAL CONTRAST: No oral contrast ingested. RADIATION DOSE: 19.79 CTDIvol (mGy) MEDICAL HISTORY : Cardiovascular disease. Congestive heart failure. Leukemia. Diabetes. Hypertens ion. Dialysis. SURGICAL HISTORY : Pacemaker. ENCOUNTER: Initial ACUITY: 1 day PAIN SCALE: 8/10 LOCATION: Right upper quadrant TECHNIQUE: Volumetric scanning of the abdomen and pelvis was performed. Using automated exposure control and adjustment of the mA and/or kV according to patient size, radiation dose was kept as low as reasonably achievable to obtain optimal diagnostic quality images. DICOM format image data is av ailable electronically for review and comparison. FINDINGS: The liver, spleen, pancreas and adrenal glands are normal. There are small areas of hi gh density material seen dependently in the gallbladder likely representing tiny gallstones. The gal lbladder is moderately distended. The kidneys are unremarkable. No hydronephrosis is seen. There is a 3.8 cm abdominal aortic aneurysm seen at the distal infrarenal abdominal aorta. There is atherosc lerotic calcification seen throughout the arterial system. There are colonic diverticula seen throug hout the colon being most numerous in the sigmoid region. Significant inflammatory change is not brian phong seen. There is degenerative change in the lumbar spine. There is some atelectasis seen at the posterior derek ng bases bilaterally being more prominent on the left. There is a cardiac pacemaker in place. CONCLUSION: 1. Colonic diverticulosis. Significant inflammatory change is not seen. 2. Distended gallbladder with suspected tiny stones. Definite inflammatory change around the gallbla dder is not seen on this CT examination. 3. 3.9 cm abdominal aortic aneurysm. This was present previously. Alli Schroeder MD on June 24, 2017 at 21:07 Board Certified Radiologist. This report was verified electronically.
--- NOTE | 2017-06-24 21:25 | PD.PROCEDR ---
Central Line Procedure REASON FOR PROCEDURE Central venous access PROCEDURE PERFORMED Central line placement: Right IJ CVL CONSENT Informed consent for procedure was obtained. The risks and benefits of the procedure were discussed to include but limited to bleeding, clot formation, infection, and even . ANESTHESIA Local injection of 1% Lidocaine DESCRIPTION OF THE PROCEDURE The patient was placed in supine, mild Trendelenburg position. The area was exposed and cleansed with ChloraPrep, times two. Large sterile drape was used to cover the patient, with the site exposed, under sterile conditions including cap, face mask, sterile gown, and sterile gloves. On single attempt, the introducer needle was inserted with negative pressure in syringe and venous flash was obtained. The guide wire was then advanced without any restriction and the needle was removed. The dilator was used without any complications. Using Seldinger technique the triple lumen catheter was advanced over the guide wire to a depth of 15 centimeters. The guide wire was removed. All ports were aspirated with dark venous blood return and flushed easily with sterile saline. All ports were capped. Antibiotic disc was placed around central line at puncture site. The central line was secured to the skin with two interrupted 2.0 silk sutures. The area was bandaged with sterile see-through central line bandage. RADIOLOGICAL DATA Ultrasound guidance was used to locate right internal jugular vein. Doppler/ color flow was used to confirm venous flow. COMPLICATIONS: No apparent complications ESTIMATED BLOOD LOSS: Less than 1 cc. Gregory De Los Santos MD Jun 24, 2017 21:25
--- NOTE | 2017-06-24 21:29 | HHI.HP ---
[facility] Service Critical Care Medicine Primary Care Physician Non-Staff Admission Diagnosis AMS/SEPSIS/hypotension Diagnosis: (1) Severe sepsis Diagnosis: Principal (2) Diverticulosis Diagnosis: Principal (3) ALEJANDRA (obstructive sleep apnea) Diagnosis: Secondary (4) Acute respiratory failure Diagnosis: Principal (5) Acute kidney injury Diagnosis: Principal (6) Thrombocytopenia Diagnosis: Principal (7) Macrocytic anemia Diagnosis: Principal (8) Leukopenia Diagnosis: Principal (9) Diabetes mellitus Diagnosis: Secondary (10) Chronic systolic heart failure Diagnosis: Principal (11) Cholecystitis Diagnosis: Principal Chief Complaint: Nausea vomiting Travel History International Travel<30 Days: No Contact w/Intl Traveler <30 Da: No Traveled to Known Affected Are: No History of Present Illness This is an 82-year-old male. Date of admission 06/24/2017. Past medical history includes CML, COPD, coronary disease, chronic systolic heart failure ejection fraction 15-20%, history of AAA, chronic kidney disease history be, ALEJANDRA, is hiatal hernia, dyslipidemia. See past medical history. Patient presented to [address] [facility] with abdominal pain.. Patient has had subacute has right upper and lower quadrant pain that radiates to his lower back. Since June 05. Today the patient also complains of shortness of breath, diffuse abdominal pain, and one episode of vomiting. Pain is sharp and rated 10/10. Earlier today he was noted to be hypotensive during home health visit. states that he has been drinking lots of fluids but declines solid food. Home health nurse called for [facility] transport to ED. is noted be hypotensive and has received 4 L normal saline today. Lactate essentially normal. Of note patient was seen on 06/22. He was give was given morphine, Toradol, and Zofran in the ED. Abnormal laboratories including elevated CPK 2600. Creatinine is currently 4.2 which is above baseline. He has been not drinking well. CT and is/pelvis revealed diverticulosis, edematous gallbladder with some stones. HIDA scan has been ordered. Central is placed to hypotension. He has received vancomycin and piperacillin/tazobactam the ED. Review of Systems Constitutional: COMPLAINS OF: Fatigue, Fever, DENIES: Weight gain, Weight loss Endocrine: DENIES: Polydipsia, Polyuria Ears, nose, mouth, throat: COMPLAINS OF: Hearing loss, DENIES: Tinnitus Respiratory: DENIES: Apneas Cardiovascular: DENIES: Chest pain Gastrointestinal: COMPLAINS OF: Abdominal pain, Nausea, Vomiting, DENIES: Constipation, Diarrhea Genitourinary: DENIES: Urinary incontinence Musculoskeletal: COMPLAINS OF: Joint pain Integumentary: DENIES: Abnormal pigmentation, Nail changes Hematologic/lymphatic: DENIES: Bruising Immunologic/allergic: DENIES: Eczema Neurologic: DENIES: Headache Psychiatric: COMPLAINS OF: Anxiety, Confusion Past Family Social History Allergies: Coded Allergies: No Known Allergies (Verified , 09/19/15) Past Medical History 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 Park Reported Medications Active Methadone (Methadone HCl) 5 Mg Tab 2.5 Mg PO BID Senna Plus 8.6-50 mg (Sennosides-Docusate Sodium) 8.6 Mg-50 Mg Tab 1 Tab PO BID Proair Hfa 8.5 GM Inh (Albuterol Sulfate) 90 Mcg/Act Aer 2 Puff INH Q4-6H PRN 108 mcg/actuation Reported Novolog Inj (Insulin Aspart) 1,000 Unit/10 Ml Vial 0 SQ ACHS Sliding Scale as directed. Prednisone 10 Mg Tab 10 Mg PO DAILY PRN Ferrous Sulfate 325 Mg (65 Mg Iron) Tablet 325 Mg PO BIDPC Amiodarone (Amiodarone HCl) 200 Mg Tab 200 Mg PO DAILY Coreg (Carvedilol) 3.125 Mg Tab 3.125 Mg PO BID Aspirin 325 Mg Tab 325 Mg PO DAILY Glipizide 5 Mg Tab 5 Mg PO DAILY Take 30 minutes before a meal Lasix (Furosemide) 40 Mg Tab 40 Mg PO DAILY Gleevec (Imatinib Mesylate) 100 Mg Tab 400 Mg PO DAILY Active Ordered Medications Reviewed in EMR Family History Mother from stomach cancer. Father with emphysema. One child with brain cancer. Social History Quit alcohol in 1993. Quit tobacco in 1993. One pack per day since age 15 . denies illicit drug use. Physical Exam Vital Signs Vital Signs Date Time Temp Pulse Resp B/P (MAP) Pulse Ox O2 Delivery O2 Flow Rate FiO2 06/24/17 20:47 57 75/47 (56) 100 Venturi Mask 50 11/14/17 20:42 57 67/37 (47) 06/24/17 19:00 68 28 127/80 (96) 98 Venturi Mask 50 06/24/17 18:38 63 20 125/59 (81) 98 Ventilator 6.00 50 06/24/17 18:11 60 16 114/58 (76) 100 Venturi Mask 6.00 50 06/24/17 16:59 56 14 93/50 (64) 94 Venturi Mask 6.00 50 06/24/17 16:17 58 16 102/42 (62) 95 Nasal Cannula 2.00 06/24/17 15:58 96 Nasal Cannula 2.00 06/24/17 15:08 66 18 84/46 (59) 93 06/24/17 14:57 98.7 65 12 113/70 (84) 100 Physical Exam GENERAL: This is a 82-year-old male, critically ill currently on Venturi mask SKIN: Warm and dry. No rash HEAD: Atraumatic. Normocephalic. EYES: Pupils equal and round. No scleral icterus. No injection or drainage. ENT: No nasal bleeding or discharge. Mucous membranes pink and moist. NECK: Trachea midline. No JVD. CARDIOVASCULAR: Regular rate and rhythm. S1, S2no S4. Currently without murmur RESPIRATORY: Few crackles. Breath sounds equal bilaterally. GASTROINTESTINAL: Abdomen soft, distended. Tender palpation right upper quadrant, left or quadrant left lower quadrant. MUSCULOSKELETAL: Extremities with trace lower extremity edema. No obvious deformities. NEUROLOGICAL: Awake and alert. No obvious cranial nerve deficits. Motor grossly within normal limits. Five out of 5 muscle strength in the arms and left leg. Right leg 4-5.. Normal speech. PSYCHIATRIC: Appropriate mood and affect; insight and judgment normal. Laboratory Laboratory Tests Test 06/24/17 15:30 06/24/17 15:55 06/24/17 16:05 06/24/17 16:30 White Blood Count 3.3 Red Blood Count 2.52 Hemoglobin 9.0 Hematocrit 27.0 Mean Corpuscular Volume 107.2 Mean Corpuscular Hemoglobin 35.7 Mean Corpuscular Hemoglobin Concent 33.3 Red Cell Distribution Width 14.6 Platelet Count 114 Mean Platelet Volume 7.9 Neutrophils (%) (Auto) 85.3 Lymphocytes (%) (Auto) 9.0 Monocytes (%) (Auto) 5.6 Eosinophils (%) (Auto) 0.0 Basophils (%) (Auto) 0.1 Neutrophils # (Auto) 2.8 Lymphocytes # (Auto) 0.3 Monocytes # (Auto) 0.2 Eosinophils # (Auto) 0.0 Basophils # (Auto) 0.0 CBC Comment AUTO DIFF Differential Total Cells Counted 100 Neutrophils % (Manual) 52 Band Neutrophils % 29 Lymphocytes % 10 Monocytes % 4 Neutrophils # (Manual) 2.8 Metamyelocytes 5 Differential Comment FINAL DIFF MANUAL Toxic Granulation 1+ Dohle Bodies PRESENT Platelet Estimate LOW Platelet Morphology Comment NORMAL B-Type Natriuretic Peptide 124 Urine Color YELLOW Urine Turbidity CLOUDY Urine pH 5.0 Urine Specific [place] 1.016 Urine Protein 30 Urine Glucose (UA) NEG Urine Ketones NEG Urine Occult Blood LARGE Urine Nitrite NEG Urine Bilirubin NEG Urine Urobilinogen 2.0 Urine Leukocyte Esterase NEG Urine RBC 2 Urine WBC 2 Urine Bacteria OCC Urine Hyaline Casts 5 Microscopic Urinalysis Comment CATH-CULTURE IND Lactic Acid Level 1.9 Prothrombin Time 11.9 Prothromb Time International Ratio 1.1 Activated Partial Thromboplast Time 31.7 Blood Urea Nitrogen 120 Creatinine 4.68 Random Glucose 44 Total Protein 4.6 Albumin 1.9 Calcium Level 6.9 Alkaline Phosphatase 48 Aspartate Amino Transf (AST/SGOT) 139 Alanine Aminotransferase (ALT/SGPT) 61 Total Bilirubin 0.9 Sodium Level 139 Potassium Level 4.6 Chloride Level 106 Carbon Dioxide Level 21.5 Anion Gap 12 Estimat Glomerular Filtration Rate 12 Protein Corrected Calcium 8.2 Total Creatine Kinase 2637 Creatine Kinase MB 57.8 Creatine Kinase MB % 2.2 Troponin I 0.19 Date/Time Source Procedure Growth Status 06/24/17 16:10 Blood Peripheral Aerobic Blood Culture Pending Received 06/24/17 16:10 Blood Peripheral Anaerobic Blood Culture Pending Received 06/24/17 15:55 Urine Catheterized Urine Urine Culture Pending Received Result Diagram: 06/24/17 1530 06/24/17 1630 Imaging Last Impressions Chest X-Ray 06/24/17 1515 Signed Impressions: Service Date/Time: Saturday, June 24, 2017 16:41 - CONCLUSION: No acute cardiopulmonary abnormality is identified. Chronic interstitial opacities at the lung bases suggest interstitial lung disease. MD Nelly Ochoa VTE Risk Assessment Caprini VTE Risk Assessment: Mod/High Risk (score >= 2) Caprini Risk Assessment Model Point Value = 1 Point Value = 2 Point Value = 3 Point Value = 5 Age 41-60 Minor surgery BMI > 25 kg/m2 Swollen legs Varicose veins or History of unexplained or recurrent spontaneous Oral contraceptives or hormone replacement Sepsis (< 1 month) Serious lung disease, including pneumonia (< 1 month) Abnormal pulmonary function Acute myocardial infarction Congestive heart failure (< 1 month) History of inflammatory bowel disease Medical patient at bed rest Age 61-74 Arthroscopic surgery Major open surgery (> 45 min) Laparoscopic surgery (> 45 min) Malignancy Confined to bed (> 72 hours) Immobilizing plaster cast Central venous access Age >= 75 History of VTE Family history of VTE Factor V Leiden Prothrombin [id number] Lupus anticoagulant Anticardiolipin antibodies Elevated serum homocysteine Heparin-induced thrombocytopenia Other congenital or acquired thrombophilia Stroke (< 1 month) Elective arthroplasty Hip, pelvis, or leg fracture Acute spinal cord injury (< 1 month) Prophylaxis Regimen Total Risk Factor Score Risk Level Prophylaxis Regimen 0-1 Low Early ambulation 2 Moderate Order ONE of the following: *Sequential Compression Device (SCD) *Heparin 5000 units SQ BID 3-4 Higher Order ONE of the following medications: *Heparin 5000 units SQ TID *Enoxaparin/Lovenox 40 mg SQ daily (WT < 150 kg, CrCl > 30 mL/min) *Enoxaparin/Lovenox 30 mg SQ daily (WT < 150 kg, CrCl > 10-29 mL/min) *Enoxaparin/Lovenox 30 mg SQ BID (WT < 150 kg, CrCl > 30 mL/min) AND/OR *Sequential Compression Device (SCD) 5 or more Highest Order ONE of the following medications: *Heparin 5000 units SQ TID (Preferred with Epidurals) *Enoxaparin/Lovenox 40 mg SQ daily (WT < 150 kg, CrCl > 30 mL/min) *Enoxaparin/Lovenox 30 mg SQ daily (WT < 150 kg, CrCl > 10-29 mL/min) *Enoxaparin/Lovenox 30 mg SQ BID (WT < 150 kg, CrCl > 30 mL/min) AND *Sequential Compression Device (SCD) Assessment and Plan Assessment and Plan Neuro/Psych: Chronic methadone use History of headache/migraine Cataracts Right ear deafness Holding methadone 2.5 mg by mouth twice a day/home medication Utilize acetaminophen/[place] and morphine for pain management CV: Severe sepsis Chronic systolic heart failure ejection fraction 15% Coronary artery disease History of hypertension History of AAA - Litke History dyslipidemia Elevated CPK History of AICD - Xavier Elevated troponin Left bundle branch block Currently on D5 normal saline at 100 cc an hour Utilize norepinephrine to maintain mean artery pressure greater than equal to 65 Continue amiodarone 2 mg by mouth daily/home medication Holding carvedilol 3.12 mg by mouth twice a day/home medication will septic Last echocardiogram 05/26 revealed EF 50-20% with dilated LV 2-D echo ordered Serial troponins. Likely type II demand ischemia secondary to hypotension. Follow trends. Resp: Acute respiratory insufficiency History of ALEJANDRA Currently a Venturi mask. Titrated to keep saturations greater than equal to 90 % Incentive spirometry while awake Albuterol/ipratropium aerosols every 4 hours with albuterol aerosols every 2 hours. Dyspnea Follow-up on a.m. chest x-ray GI: Possible acute cholecystitis Hiatal hernia Gastroesophageal reflux disease History diverticulosis CT abdomen status post reveals diverticulosis without diverticulitis. Edematous gallbladder with possible stones. Will check HIDA scan in a.m. Keep nothing by mouth Pantoprazole for GI prophylaxis Docusate sodium 1 tablet twice a day for bowel regimen : Tatum catheter has been placed for accurate I's and O's in a critically ill patient Endo: Diabetes mellitus Holding glipizide 5 mill grams by mouth daily Sliding-scale insulin to maintain euglycemia with Accu-Cheks every 4 hours/ Novulog low regimen Renal: Acute kidney injury in the setting of chronic kidney disease stage IIIB Consult nephrology. Patient not seen surveyor helper in the past. No hydronephrosis on CT abdomen/pelvis Urine electrolytes and eosinophils pending Avoid nephrotoxic drugs Heme: CML since 1998 - on Imatinib 400 mg daily Leukopenia Macrocytic anemia Thrombocytopenia Sees Dr. Patel as an outpatient. Follow-up on CBC and coags in a.m. ID: Severe sepsis Blood cultures 2, pending Currently on vancomycin/piperacillin/tazobactam. FEN: Hypocalcemia 1 g calcium gluconate IV 1. Recheck. Replace electrolytes as clinically indicated MSK: Right hip osteoarthritis PT evaluate and treat Access - Right IJ CVL day 1 placed in ED Prophylaxis - GI - pantoprazole - DVT - SCD/heparin subcutaneous Critical Care: The total critical care time was 35 minutes. Time to perform other separately billable procedures was not included in the critical care time. Code Status Full code Discussed Condition With Dr. Real Patient's with patient. Care plan discussed and all questions answered. Problem Qualifiers (1) Diverticulosis: (2) Acute respiratory failure: Qualified Codes: J96.02 - Acute respiratory failure with hypercapnia (3) Leukopenia: Qualified Codes: D72.819 - Decreased white blood cell count, unspecified (4) Diabetes mellitus: Qualified Codes: E11.8 - Type 2 diabetes mellitus with unspecified complications Gregory De Los Santos MD Jun 24, 2017 21:29
--- NOTE | 2017-06-24 21:35 | EKG ---
Date Performed: 06/24/2017 Time Performed: 15:05:06 PTAGE: 82 years EKG: Sinus rhythm MARKED LEFT AXIS DEVIATION LEFT BUNDLE BRANCH BLOCK ABNORMAL ECG Compared to prior tracing no signif icant change DOCTOR: Maggie Rosas Interpretating Date/Time 06/24/2017 21:34:14
[2017-06-24] MEDS: DEXT 5%-NACL 0.9% 1000 ML INJ 1,000 ML IV SCH (21:54)
--- NOTE | 2017-06-24 22:21 | RADRPT ---
EXAM DATE/TIME: 06/24/2017 21:28 [facility] COMPARISON: CHEST SINGLE AP, June 24, 2017, 16:41. INDICATIONS : Central line placement. MEDICAL HISTORY : Cardiovascular disease. Congestive heart failure. Leukemia. Diabetes. SURGICAL HISTORY : Pacemaker. ENCOUNTER: Subsequent ACUITY: 1 day PAIN SCORE: 0/10 LOCATION: Bilateral chest FINDINGS: There is a pacing device in place from the left subclavian approach. There is an NG tube in place wit h its tip in the distal esophagus. The NG tube should be advanced. There is a right internal jugular central line in place with the tip overlying the SVC. No pneumothorax is seen. The heart size is mild ly enlarged. The lungs are grossly clear. CONCLUSION: 1. NG tube at the distal esophagus. This should be advanced. 2. Good placement of a right internal jugular central line. A pneumothorax is not seen. Alli Schroeder MD on June 24, 2017 at 22:18 Board Certified Radiologist. This report was verified electronically.
[2017-06-24] MEDS: RESP: ALBUTEROL 2.5 MG/IPRATROPIUM 0.5 MG NEB (SCH) INH (22:31)
[2017-06-24] MEDS: MORPHINE SULFATE 2 MG/ML INJ IV PUSH PRN (23:37)
[2017-06-25] VITALS (39 sets, daily range): BP systolic 84–130; BP diastolic 50–64; PULSE 57–71; RESP 13–29; TEMP 96.6–98; O2SAT 94–100
[2017-06-25] MEDS: RESP: ALBUTEROL 2.5 MG/IPRATROPIUM 0.5 MG NEB (SCH) INH ×4 (03:33→20:12)
[2017-06-25] MEDS: INSULIN NovoLIN REGULAR SUPPLEMENTAL SCALE SQ SCH ×7 (04:00→23:52)
[2017-06-25] MEDS: CHLORHEXIDINE GLUCONATE 2 % 1 PACK (2 CLOTHS) TOP SCH (04:00)
[2017-06-25] MEDS: PIPERACIL-TAZO 2.25 GM PREMIX 50 ML IV SCH ×3 (04:38→20:50)
[2017-06-25 05:28] LABS: AUTOMATED NEUTROPHIL # 2.7 TH/MM3 (1.8-7.7); EOSINOPHIL % 0.1 % (0.0-4.0); HEMOGLOBIN 9.5 GM/DL (13.0-17.0); LYMPH % 2.8 % (9.0-44.0); LYMPHOCYTE # 0.1 TH/MM3 (1.0-4.8); MEAN CORPUSCULAR HEMOGLOBIN 36.2 PG (27.0-34.0); MEAN CORPUSCULAR HGB CONC 33.8 % (32.0-36.0); MEAN PLATELET VOLUME 7.7 FL (7.0-11.0); MONO % 4.1 % (0.0-8.0); MONOCYTE # 0.1 TH/MM3 (0-0.9); PLATELET COUNT 107 TH/MM3 (150-450); RED BLOOD COUNT 2.62 MIL/MM3 (4.50-5.90); RED CELL DISTRIBUTION WIDTH 14.6 % (11.6-17.2); WHITE BLOOD COUNT 2.9 TH/MM3 (4.0-11.0)
[2017-06-25 06:02] LABS: INTERNATIONAL NORMALIZED RATIO 1.1 RATIO; PROTHROMBIN TIME - PATIENT 11.7 SEC (9.8-11.6)
[2017-06-25 06:07] LABS: ALBUMIN 1.9 GM/DL (3.4-5.0); BICARBONATE 20.1 MEQ/L (21.0-32.0); CALCIUM 7.1 MG/DL (8.5-10.1); CALCIUM-PROTEIN CORRECTED 8.3 MG/DL (8.5-10.1); CREATININE 4.17 MG/DL (0.60-1.30); MAGNESIUM 2.6 MG/DL (1.5-2.5); PHOSPHORUS 6.3 MG/DL (2.5-4.9); TOTAL BILIRUBIN ADULT 0.9 MG/DL (0.2-1.0); TOTAL PROTEIN 4.9 GM/DL (6.4-8.2)
[2017-06-25 07:27] LABS: BANDS 28 % (0-6); DOHLE BODIES PRESENT (NONE SEEN); LYMPHOCYTES 3 % (9-44); METAMYELOCYTES 11 % (0-1); MONOCYTES 3 % (0-8); NEUTROPHIL # MANUAL DIFF 2.7 TH/MM3 (1.8-7.7); POLYS (SEG NEUTROPHILS) 55 % (16-70); TOXIC GRANULATION 1+ (NORMAL)
[2017-06-25 07:30] LABS: ACANTHOCYTES OCC (NORMAL)
[2017-06-25] MEDS: DEXT 5%-NACL 0.9% 1000 ML INJ 1,000 ML IV SCH ×2 (08:40→18:36)
[2017-06-25] MEDS: METHADONE HCL 10 MG/10 ML ORAL SOLUTION PO SCH ×2 (09:00→20:50)
[2017-06-25] MEDS: AMIODARONE 200 MG TAB PO SCH (09:00)
[2017-06-25] MEDS: DOCUSATE SODIUM 50 MG/SENNA 8.6 MG TAB PO SCH ×2 (09:00→20:50)
[2017-06-25] MEDS: PANTOPRAZOLE SODIUM 40 MG VIAL IV PUSH SCH (12:37)
[2017-06-25] MEDS: SODIUM CHLORIDE 0.9% FLUSH 10 ML FLUSH IV FLUSH SCH ×3 (12:37→20:51)
--- NOTE | 2017-06-25 12:40 | RADRPT ---
EXAM DATE/TIME: 06/25/2017 10:43 [facility] COMPARISON: CT ABDOMEN & PELVIS W/O CONTRAST, June 24, 2017, 19:29. INDICATIONS : Right upper quadrant pain. DOSE: 4.1 mCi Tc99m Mebrofenin IV MEDICAL HISTORY : Myocardial infarction. Cardiovascular disease Chronic obstructive pulmonary disease. Leukemia. SURGICAL HISTORY : Inguinal hernia repair. Pacemaker. ENCOUNTER: Initial ACUITY: 1 day PAIN SCALE: 2/10 LOCATION: Right upper quadrant TECHNIQUE: Following the intravenous administration of radiotracer, dynamic sequential images were performed wit h continuous acquisition. FINDINGS: HEPATIC KINETICS: There is prompt uptake of radiotracer in the liver. No focal defects are seen. There is normal rate of washout from the hepatic parenchyma. BILIARY CLEARANCE: Activity is first seen in the extrahepatic biliary system at 20 minutes. There is normal excretion i nto the small bowel. GALLBLADDER: Activity is first seen in the gallbladder at 30 minutes. Common bile duct kinetics are normal and th ere is no evidence of biliary obstruction. BILIARY ENTRIC REFLUX: Observed. CONCLUSION: 1. No evidence for cystic duct obstruction. 2. Biliary enteric reflux. Braulio Sellers MD on June 25, 2017 at 12:37 Board Certified Radiologist. This report was verified electronically.
--- NOTE | 2017-06-25 15:18 | HHI.CCPN ---
Subjective Remarks/Hospital Course 06/24: This is an 82-year-old male. Date of admission 06/24/2017. Past medical history includes CML, COPD, coronary disease, chronic systolic heart failure ejection fraction 15-20%, history of AAA, chronic kidney disease history be, ALEJANDRA, is hiatal hernia, dyslipidemia. See past medical history. Patient presented to [address] [facility] with abdominal pain.. Patient has had subacute has right upper and lower quadrant pain that radiates to his lower back. Since June 05. Today the patient also complains of shortness of breath, diffuse abdominal pain, and one episode of vomiting. Pain is sharp and rated 10/10. Earlier today he was noted to be hypotensive during home health visit. states that he has been drinking lots of fluids but declines solid food. Home health nurse called for [facility] transport to ED. is noted be hypotensive and has received 4 L normal saline today. Lactate essentially normal. Of note patient was seen on 06/22. He was give was given morphine, Toradol, and Zofran in the ED. Abnormal laboratories including elevated CPK 2600. Creatinine is currently 4.2 which is above baseline. He has been not drinking well. CT and is/pelvis revealed diverticulosis, edematous gallbladder with some stones. HIDA scan has been ordered. Central is placed to hypotension. He has received vancomycin and piperacillin/tazobactam in the ED. 06/25: Elderly male laying in bed on nasal cannula. Levophed gtt being titrated down. HIDA scan did not show any obstruction and gall bladder well visualized. Objective Vital Signs Date Time Temp Pulse Resp B/P (MAP) Pulse Ox O2 Delivery O2 Flow Rate FiO2 06/25/17 14:00 60 06/25/17 13:00 130/60 06/25/17 12:15 24 100 06/25/17 12:00 97.0 06/25/17 10:18 Venturi Mask 6.00 50 Intake and Output 06/25/17 06/25/17 06/26/17 08:00 16:00 00:00 Intake Total 963.8 ml 267 ml Output Total 1350 ml Balance -386.2 ml 267 ml Result Diagram: 06/25/17 0510 06/25/17 0510 Other Results Laboratory Tests Test 06/24/17 21:30 Blood Gas Puncture Site RT RADIAL Blood Gas Patient Temperature 98.6 Blood Gas HCO3 18 mmol/L (22-26) Blood Gas Base Excess -7.7 mmol/L (-2-2) Blood Gas Oxygen Saturation 95 % (90-100) Arterial Blood pH 7.30 (7.380-7.420) Arterial Blood Partial Pressure CO2 36 mmHg (38-42) Arterial Blood Partial Pressure O2 106 mmHG (61-120) Arterial Blood Oxygen Content 11.7 Vol % (12.0-20.0) Arterial Blood Carboxyhemoglobin 0.9 % (0-4) Arterial Blood Methemoglobin 0.9 % (0-2) Blood Gas Hemoglobin 8.6 G/DL (12.0-16.0) Oxygen Delivery Device Venti Mask Blood Gas Liter Flow 6 L/M Blood Gas Inspired Oxygen 50 % Imaging Last Impressions Chest X-Ray 06/24/17 4079 Signed Impressions: Service Date/Time: Saturday, June 24, 2017 16:41 - CONCLUSION: No acute cardiopulmonary abnormality is identified. Chronic interstitial opacities at the lung bases suggest interstitial lung disease. Alli Cohen MD Objective Remarks GENERAL: This is a 82-year-old male, critically ill currently on Venturi mask SKIN: Warm and dry. No rash HEAD: Atraumatic. Normocephalic. EYES: Pupils equal and round. No scleral icterus. No injection or drainage. ENT: No nasal bleeding or discharge. Mucous membranes pink and moist. NECK: Trachea midline. No JVD. CARDIOVASCULAR: Regular rate and rhythm. S1, S2no S4. Currently without murmur RESPIRATORY: Few crackles. Breath sounds equal bilaterally. GASTROINTESTINAL: Abdomen soft, distended. Tender palpation right upper quadrant, right flank, no guarding. MUSCULOSKELETAL: Extremities with trace lower extremity edema. No obvious deformities. NEUROLOGICAL: Awake and alert. No obvious cranial nerve deficits. Motor grossly within normal limits. Five out of 5 muscle strength in the arms and left leg. Right leg 4-5.. Normal speech. PSYCHIATRIC: Appropriate mood and affect; insight and judgment normal. A/P Assessment and Plan Neuro/Psych: Chronic methadone use History of headache/migraine Cataracts Right ear deafness Holding methadone 2.5 mg by mouth twice a day/home medication Utilize acetaminophen/[place] and morphine for pain management CV: Severe sepsis Chronic systolic heart failure ejection fraction 15% Coronary artery disease History of hypertension History of AAA - Litke History dyslipidemia Elevated CPK History of AICD - Xavier Elevated troponin Left bundle branch block Decrease D5 normal saline to 60cc/hr Utilize norepinephrine to maintain mean artery pressure greater than equal to 65 Continue amiodarone 2 mg by mouth daily/home medication Holding carvedilol 3.12 mg by mouth twice a day/home medication will septic Last echocardiogram 05/26 revealed EF 50-20% with dilated LV 2-D echo ordered Serial troponins. Likely type II demand ischemia secondary to hypotension. Follow trends. Resp: Acute respiratory insufficiency History of ALEJANDRA Currently a Venturi mask. Titrated to keep saturations greater than equal to 90 % Incentive spirometry while awake Albuterol/ipratropium aerosols every 4 hours with albuterol aerosols every 2 hours. Dyspnea Follow-up on a.m. chest x-ray GI: Possible acute cholecystitis Hiatal hernia Gastroesophageal reflux disease History diverticulosis CT abdomen status post reveals diverticulosis without diverticulitis. Edematous gallbladder with possible stones. HIDA scan shows no obstruction to cystic duct with good visualization of gall bladder. Advance PO as tolerated Pantoprazole for GI prophylaxis Docusate sodium 1 tablet twice a day for bowel regimen : Tatum catheter has been placed for accurate I's and O's in a critically ill patient Endo: Diabetes mellitus Holding glipizide 5 mill grams by mouth daily Sliding-scale insulin to maintain euglycemia with Accu-Cheks every 4 hours/ Novulog low regimen Starting stress dose steroids-hydrocortisone 50 mg IV every 6 hourly on 06/25 as patient is on by mouth prednisone at home chronically. Renal: Acute kidney injury in the setting of chronic kidney disease stage IIIB Consult nephrology. Patient has not seen residential sales executive in the past. No hydronephrosis on CT abdomen/pelvis Strict intake output, monitor and replete electrolytes, follow BUN/creatinine Avoid nephrotoxic drugs Heme: CML since 1998 - on Imatinib 400 mg daily Leukopenia Macrocytic anemia Thrombocytopenia Sees Dr. Patel as an outpatient-consulted Dr. Liu for CML. Follow-up on CBC and coags in a.m. ID: Severe sepsis Blood cultures 2, pending Currently on vancomycin/piperacillin/tazobactam. Consulted ID in v/o suspected sepsis in immunocompromised host. FEN: Hypocalcemia 1 g calcium gluconate IV 1. Recheck. Replace electrolytes as clinically indicated MSK: Right hip osteoarthritis PT evaluate and treat Access - Right IJ CVL 06/24 Prophylaxis - GI - pantoprazole - DVT - SCD/heparin subcutaneous. Abilio Mtz MD Jun 25, 2017 15:18
[2017-06-25] MEDS: HYDROCORTISONE SOD SUCCINATE 100 MG VIAL IV PUSH SCH ×2 (16:56→20:48)
[2017-06-25 18:22] LABS: CREATININE, RANDOM URINE 56.9 MG/DL
--- NOTE | 2017-06-25 20:43 | MB ---
cc: NOREEN HACKETT MD DATE OF CONSULTATION: 06/25/2017. REASON FOR CONSULTATION: Elevated BUN and creatinine for evaluation. HISTORY OF PRESENT ILLNESS: This is an 82-year-old male with past medical history of hypertension, ischemic heart disease, chronic kidney disease, history of renal stone, diabetes mellitus, chronic obstructive pulmonary disease, congestive heart failure, CML diagnosed in 199 who came to the hospital with a complaint of altered mental status. I was called to see the patient because of elevated BUN and creatinine. The patient has a known history of chronic kidney disease. According to the , he was seen by some mobile application tester and possibly a urologist in [place] and he has had many readings here for the creatinine and the last one around the last three to four weeks it was around 2.7 the creatinine. Now he came with a creatinine of 4.6. The patient came in here and it was found that his blood pressure was on the lower side and the lowest recorded he had was 74/47. The patient was also found to have hypocalcemia and he was given calcium gluconate. The patient has abdominal pain also going to the back and he has shortness of breath. The patient is not able to give much history. Most of the history was taken from the patient's chart and some from the who was sitting at the bedside. The patient currently has a Tatum catheter and is passing urine. PAST MEDICAL HISTORY: 1. Hypertension. 2. Diabetes mellitus. 3. Ischemic heart disease. 4. Congestive heart failure. 5. Chronic obstructive pulmonary disease. 6. Sleep apnea. 7. Chronic kidney disease. 8. Renal stone. 9. Hyperlipidemia. 10. History of CML. PAST SURGICAL HISTORY: 1. Cataract surgery. 2. Lung biopsy. 3. Left knee surgery. 4. AICD placement. REVIEW OF SYSTEMS: A review of systems cannot be taken since the patient is quite lethargic and is not able to give most of the answers. SOCIAL HISTORY: The patient is . He has a history of smoking and stopped in 1993. He also has a history of alcoholism and stopped in 1993. FAMILY HISTORY: His family history is noncontributory. ALLERGIES: HE HAS NO KNOWN DRUG ALLERGIES. MEDICATIONS: Currently he is on the following medications: 1. Dextrose normal saline at 60 an hour. 2. Olesya-Colace one tablet twice a day. 3. Methadone 2.5 milligrams twice a day. 4. Protonix 40 milligrams once a day. 5. Cordarone 200 milligrams daily. 6. DuoNeb nebulizer. 7. Novolin sliding scale. 8. Zosyn 2.25 grams IV q. 8 hours. 9. Zofran as needed. 10. Tylenol as needed. 11. He received one dose of Vancomycin yesterday. PHYSICAL EXAMINATION: GENERAL: On examination, the patient is awake. He is currently with a VentiMask and in moderate respiratory distress. VITAL SIGNS: The last blood pressure recorded was 107/51, temperature 97.9. Oxygen saturation is 98%. HEAD, EYES, EARS, NOSE, THROAT: The pupils are mid-constricted. Nonicteric sclerae. Conjunctivae are pale. NECK: The neck is supple. JVD is not elevated. LUNGS: The patient has bilateral decreased air entry with diffuse wheezing. HEART: S1 and S2 regular rhythm. ABDOMEN: Abdomen is distended, soft and lax. There is mild tenderness, which is diffuse. There is no rebound. No rigidity. EXTREMITIES: He has mild edema in the legs. INVESTIGATIONS: White blood cell count is 2.9, hemoglobin 9.5, platelet count is 107,000. Neutrophils 93%. Sodium 142, potassium 4.6, chloride 112, bicarbonate 20.1, BUN 108, creatinine 4.1, glucose 144, calcium corrected is 8.3, phosphorus is 6.3, magnesium is 2.6. AST is 147. ALT is 69. Troponin I is 0.14. Total protein is 4.9. Albumin is 1.9. Calcium was 6.9, but the corrected calcium is better at 8.3. Urinalysis showing protein of 30. Urine sodium is pending. Blood cultures and urine cultures are showing no growth so far. IMAGING STUDIES: The patient has had a HIDA scan and it shows that he has no evidence of cystic duct obstruction. He has biliary enteric reflex. CT scan of the abdomen and pelvis was done without IV contrast and it shows that he has colonic diverticulosis, distended gallbladder, a 3.9 cm abdominal aortic aneurysm. The kidneys are reported as unremarkable. No hydronephrosis. A 3.8 cm aneurysm as mentioned above. Chest x-ray was done which shows that he has no pneumothorax. Cardiac size is slightly enlarged. The lungs were grossly clear. ASSESSMENT AND PLAN: 1. Chronic kidney disease with acute kidney injury. 2. Hypotension and shock status. 3. Congestive heart failure with low ejection fraction. 4. Rule out sepsis. 5. Anemia. 6. History of CML. The patient has advanced chronic kidney disease with GFR at his baseline was around 22 and with creatinine of 2.7 and now developed acute kidney injury. The creatinine was 4.6 on admission and now it is improving at 4.1. The patient is passing urine. Most likely he has chronic kidney disease because of hypertensive or diabetic renal disease and now developed acute kidney injury because of the ATN from the hypotension. His blood pressure is now better. Continue with IV hydration. Continue the IV fluids. Avoid nephrotoxins and follow the urine output and the BUN and creatinine. Thank you for the consultation, and I will follow the patient while he is in the hospital. MD JOAN Blanton/ANA CRISTINA /6:20 PM /8:26 PM
--- NOTE | 2017-06-25 21:15 | MB ---
cc: GABRIEL PATEL M.D. DATE OF CONSULTATION: 06/25/2017. REASON FOR CONSULTATION: Consult requested by journeyman patternmaker, Dr. Mtz, for evaluation of pancytopenia in a patient who has a history of chronic myeloid leukemia. HISTORY OF PRESENT ILLNESS: Silvano is a pleasant 82-year-old male. He was diagnosed with chronic myeloid leukemia in 1998. I have been seeing him since then. The patient has been on Gleevec and he is in remission. According to the patient's , the patient was having problems with walking for the last two weeks. He then noticed severe constipation. He tried to move his bowels but was not successful. He tried to put hemorrhoidal cream to loosen up his stool and make him go. His stated that finally moved his bowels but he had a very large bowel movement and he made a mess in the bed on the blankets according to his . She also noticed dark stool most likely consistent with blood. He also noticed abdominal distension and could not walk because of that. He was brought into the emergency room by paramedics. In the emergency room, the patient was evaluated by the ER physician. He did not have any fever but he was hypotensive and his blood pressure was 84/46. CBC showed white count of 3.3, hemoglobin 9, hematocrit is 27 and platelet count is 114,000. The differential count showed 29% bandemia, 5% metamyelocytes, toxic granulation and Dohle bodies. The patient was admitted to the hospital for severe sepsis. I have been asked to see the patient for evaluation of leukemia as well as pancytopenia. The patient is hard of hearing. He appears to be confused. His is at the bedside. The patient had a CT scan of the abdomen and pelvis which showed colonic diverticulosis. Significant inflammatory changes are not seen, a distended gallbladder with suspected tiny stones, definitive inflammatory change around the gallbladder is not seen, a 3.9 cm abdominal aortic aneurysm which is stable. The chest x-ray is negative except it shows chronic interstitial opacities in the lung bases suggestive of interstitial lung disease. He also had a HIDA scan which showed no evidence of cystic duct obstruction, biliary enteric reflux noted. Infectious disease has been consulted. The patient is currently on antibiotics, Vancomycin and Zosyn. The rest of the review of systems is negative. PAST MEDICAL HISTORY: 1. Chronic myeloid leukemia diagnosed in 1998. 2. Chronic renal failure. 3. Abdominal aortic aneurysm. 4. COPD. 5. Diabetes mellitus. 6. Diverticulosis. 7. Hiatal hernia. 8. Hypercholesterolemia. 9. Hypertension. 10. Kidney stones. 11. Hard of hearing. 12. 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 13. Coronary artery disease status post myocardial infarction last year. PAST SURGICAL HISTORY: 1. Bilateral ear tube placement. 2. Cataracts. 3. Left knee surgery. 4. Colonoscopy. ALLERGIES: NONE. MEDICATIONS: 1. Amlodipine. 2. Carvedilol. 3. Lasix. 4. Gleevec 400 milligrams daily. 5. Glipizide. 6. Insulin. 7. A nebulizer. 8. Losartan. 9. Lovastatin. 10. NovoLog. FAMILY HISTORY: Noncontributory. SOCIAL HISTORY: The patient does not smoke cigarettes and does not drink alcohol. PHYSICAL EXAMINATION: GENERAL: This is a well-developed, well-nourished white male in no apparent distress. VITAL SIGNS: Temperature is 97.9, heart rate is 65, blood pressure is 115/59, 02 saturation is 98%. HEAD, EYES, EARS, NOSE, THROAT: Pupils equal, round and reactive to light and accommodation. Extraocular muscles intact. Anicteric. No oral lesions are noted. NECK: No lymphadenopathy noted. LUNGS: Decreased breath sounds on both sides. HEART: Regular rate and rhythm. ABDOMEN: Abdomen is distended, diffusely tender, unable to feel for liver and spleen due to the abdominal distention. EXTREMITIES: No pedal edema. NEUROLOGIC: Awake, alert and oriented x2. SKIN: No significant lesions noted. ASSESSMENT: 1. Pancytopenia with macrocytosis. This is most likely due to severe sepsis. 2. Severe bandemia with toxic granulation and Dohle bodies. This is consistent with severe sepsis. 3. Severe abdominal pain, constipation and nausea, most likely he has some GI infection. 4. Chronic myeloid leukemia on Gleevec. PLAN: I have reviewed his available records and I had an extensive discussion with the patient's regarding his condition. The patient is critically ill. At the present time, he is in the intensive care unit. He came in with abdominal pain and hypotension. This is consistent with severe sepsis. He is on antibiotics. The source of the infection is still unknown. Infectious disease has been consulted. Given that he has pancytopenia, my recommendation is to hold off on the Gleevec for now. His creatinine has gone up to 4.17. Consider nephrology consult. Also, consider general surgery consult for abdominal distention as I suspect that he may have some intraabdominal pathology which is causing the current sickness. Further recommendations based on his hospital stay. Thank you for asking my opinion. Mary Patel MD /ANA CRISTINA /6:24 PM /8:46 PM NICK
[2017-06-26] VITALS (34 sets, daily range): BP systolic 92–167; BP diastolic 51–71; PULSE 59–77; RESP 12–28; TEMP 97.6–98.4; O2SAT 77–100
[2017-06-26] MEDS: HYDROCORTISONE SOD SUCCINATE 100 MG VIAL IV PUSH SCH ×4 (01:57→21:26)
[2017-06-26] MEDS: CHLORHEXIDINE GLUCONATE 2 % 1 PACK (2 CLOTHS) TOP SCH (04:00)
[2017-06-26] MEDS: RESP: ALBUTEROL 2.5 MG/IPRATROPIUM 0.5 MG NEB (SCH) INH ×4 (04:00→20:31)
[2017-06-26] MEDS: INSULIN NovoLIN REGULAR SUPPLEMENTAL SCALE SQ SCH ×5 (04:00→20:00)
[2017-06-26] MEDS: PIPERACIL-TAZO 2.25 GM PREMIX 50 ML IV SCH ×3 (04:58→21:27)
[2017-06-26 05:53] LABS: AUTOMATED NEUTROPHIL # 3.4 TH/MM3 (1.8-7.7); BASOPHIL % 0.6 % (0.0-2.0); EOSINOPHIL % 0.3 % (0.0-4.0); HEMATOCRIT 26.2 % (39.0-51.0); HEMOGLOBIN 9.1 GM/DL (13.0-17.0); LYMPH % 4.8 % (9.0-44.0); LYMPHOCYTE # 0.2 TH/MM3 (1.0-4.8); MEAN CORPUSCULAR HGB CONC 34.6 % (32.0-36.0); MEAN PLATELET VOLUME 9.2 FL (7.0-11.0); MONO % 3.6 % (0.0-8.0); MONOCYTE # 0.1 TH/MM3 (0-0.9); NEUT % 90.7 % (16.0-70.0); PLATELET COUNT 80 TH/MM3 (150-450); RED BLOOD COUNT 2.45 MIL/MM3 (4.50-5.90); RED CELL DISTRIBUTION WIDTH 14.7 % (11.6-17.2); WHITE BLOOD COUNT 3.7 TH/MM3 (4.0-11.0)
[2017-06-26 06:25] LABS: ALBUMIN 1.7 GM/DL (3.4-5.0); BICARBONATE 19.5 MEQ/L (21.0-32.0); CALCIUM 7.2 MG/DL (8.5-10.1); CALCIUM-PROTEIN CORRECTED 8.3 MG/DL (8.5-10.1); CREATININE 3.93 MG/DL (0.60-1.30); TOTAL BILIRUBIN ADULT 0.8 MG/DL (0.2-1.0); TOTAL PROTEIN 5.1 GM/DL (6.4-8.2)
[2017-06-26 08:00] LABS: BANDS 46 % (0-6); LYMPHOCYTES 6 % (9-44); NEUTROPHIL # MANUAL DIFF 3.5 TH/MM3 (1.8-7.7); POLYS (SEG NEUTROPHILS) 48 % (16-70)
[2017-06-26 08:01] LABS: BURR CELLS 1+ (NORMAL); DOHLE BODIES PRESENT (NONE SEEN); TOXIC GRANULATION 2+ (NORMAL)
[2017-06-26] MEDS: AMIODARONE 200 MG TAB PO SCH (09:25)
[2017-06-26] MEDS: DOCUSATE SODIUM 50 MG/SENNA 8.6 MG TAB PO SCH ×2 (09:25→21:26)
[2017-06-26] MEDS: PANTOPRAZOLE SODIUM 40 MG VIAL IV PUSH SCH (09:26)
[2017-06-26] MEDS: SODIUM CHLORIDE 0.9% FLUSH 10 ML FLUSH IV FLUSH SCH ×3 (09:26→21:28)
[2017-06-26] MEDS: METHADONE HCL 10 MG/10 ML ORAL SOLUTION PO SCH ×2 (09:26→21:27)
[2017-06-26] MEDS ORDERED: INFLUENZA VIRUS VACCINE (QUADRIVALENT) 0.5 ML SYR IM ONE (10:00)
--- NOTE | 2017-06-26 11:08 | PD.ID.CON ---
History of Present Illness Service ID Consult Requested By [facility] MD Pandey Reason for Consult Evaluation and Mment of Severe sepsis in patient with CLL on Gleevec Immune compromised host. Primary Care Physician Non-Staff Diagnoses: History of Present Illness is a 82 y/o CM with PMHx of chronic myeloid leukemia in 1998. The patient has been on Gleevec and he is in remission per review of record and notes of . Reportedly, the patient's , the patient was having problems with walking for the last two weeks. He then noticed severe constipation. Reportedly he was constipated. His stated that finally moved his bowels but he had a very large bowel movement and he made a mess in the bed on the blankets according to his . She also noticed dark stool most likely consistent with blood. He also noticed abdominal distension and could not walk because of that. He was brought into the emergency room by paramedics. In theemergency room, the patient was evaluated by the ER physician. He did not have any fever but he was hypotensive and his blood pressure was 84/86. CBC showed white count of 3.3, hemoglobin 9, hematocrit is 27 and platelet count is 114, 000. The differential count showed 29% bandemia, 5% metamyelocytes, toxic granulation Dohle bodies. The patient was admitted to the hospital for severe sepsis. The patient had a CT scan of the abdomen and pelvis which showed colonic diverticulosis. Significant inflammatory changes are not seen, a distended gallbladder with suspected tiny stones, definitive inflammatory change around the gallbladder is not seen, a 3.9 cm abdominal aortic aneurysm which is stable. The chest x-ray is negative except it shows chronic interstitial opacities in the lung bases suggestive of interstitial lung disease. He also had a HIDA scan which showed no evidence of cystic duct obstruction, biliary enteric reflux noted. Infectious disease was consulted for severe sepsis. The patient was started on antibiotics, Vancomycin and Zosyn. Review of Systems ROS Limitations: Poor Historian Constitutional: COMPLAINS OF: Dizziness, Change in appetite, DENIES: Diaphoretic episodes, Fatigue, Fever, Weight gain, Weight loss, Chills, Night Sweats Endocrine: DENIES: Heat/cold intolerance, Polydipsia, Polyuria, Polyphagia Eyes: DENIES: Blurred vision, Diplopia, Eye inflammation, Eye pain, Vision loss , Photosensitivity, Double Vision Ears, nose, mouth, throat: DENIES: Tinnitus, Hearing loss, Vertigo, Nasal discharge, Oral lesions, Throat pain, Hoarseness, Ear Pain, Running Nose, Epistaxis, Sinus Pain, Toothache, Odynophagia Respiratory: DENIES: Apneas, Cough, Snoring, Wheezing, Hemoptysis, Sputum production, Shortness of breath Cardiovascular: DENIES: Chest pain, Palpitations, Syncope, Dyspnea on Exertion , PND, Lower Extremity Edema, Orthopnea, Claudication Gastrointestinal: COMPLAINS OF: Abdominal pain, Constipation, DENIES: Black stools, Bloody stools, Diarrhea, Nausea, Vomiting, Difficulty Swallowing, Anorexia Genitourinary: DENIES: Sexual dysfunction, Urinary frequency, Urinary incontinence, Urgency, Hematuria, Dysuria, Nocturia, Penile Discharge, Testicular Pain, Testicular Swelling Musculoskeletal: DENIES: Joint pain, Muscle aches, Stiffness, Joint Swelling, Back pain, Neck pain Integumentary: DENIES: Abnormal pigmentation, Nail changes, Pruritus, Rash Hematologic/lymphatic: DENIES: Bruising, Lymphadenopathy Immunologic/allergic: DENIES: Eczema, Urticaria Neurologic: DENIES: Abnormal gait, Headache, Localized weakness, Paresthesias, Seizures, Speech Problems, Tremor, Poor Balance Psychiatric: DENIES: Anxiety, Confusion, Mood changes, Depression, Hallucinations, Agitation, Suicidal Ideation, Homicidal Ideation, Delusions Except as stated in HPI: all other systems reviewed are Neg Past Family Social History Allergies: Coded Allergies: No Known Allergies (Verified , 09/19/15) Past Medical History 1. Chronic myeloid leukemia diagnosed in 1998. 2. Chronic renal failure. 3. Abdominal aortic aneurysm. 4. COPD. 5. Diabetes mellitus. 6. Diverticulosis. 7. Hiatal hernia. 8. Hypercholesterolemia. 9. Hypertension. 10. Kidney stones. 11. Hard of hearing. 12. 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 13. Coronary artery disease status post myocardial infarction last year. Past Surgical History 1. Bilateral ear tube placement. 2. Cataracts. 3. Left knee surgery. 4. Colonoscopy. Reported Medications Reported Meds & Active Scripts Active Methadone (Methadone HCl) 5 Mg Tab 2.5 Mg PO BID Senna Plus 8.6-50 mg (Sennosides-Docusate Sodium) 8.6 Mg-50 Mg Tab 1 Tab PO BID Proair Hfa 8.5 GM Inh (Albuterol Sulfate) 90 Mcg/Act Aer 2 Puff INH Q4-6H PRN 108 mcg/actuation Reported Novolog Inj (Insulin Aspart) 1,000 Unit/10 Ml Vial 0 SQ ACHS Sliding Scale as directed. Prednisone 10 Mg Tab 10 Mg PO DAILY PRN Ferrous Sulfate 325 Mg (65 Mg Iron) Tablet 325 Mg PO BIDPC Amiodarone (Amiodarone HCl) 200 Mg Tab 200 Mg PO DAILY Coreg (Carvedilol) 3.125 Mg Tab 3.125 Mg PO BID Aspirin 325 Mg Tab 325 Mg PO DAILY Glipizide 5 Mg Tab 5 Mg PO DAILY Take 30 minutes before a meal Lasix (Furosemide) 40 Mg Tab 40 Mg PO DAILY Gleevec (Imatinib Mesylate) 100 Mg Tab 400 Mg PO DAILY Active Ordered Medications Current Medications Medications (Trade) Dose Ordered Sig/Sunil Route Start Time Stop Time Status Last Admin (NS Flush) 2 ml UNSCH PRN IV FLUSH 06/24/17 20:30 (NS Flush) 2 ml BID IV FLUSH 06/24/17 21:00 06/26/17 09:26 (Tylenol) 650 mg Q6H PRN PO 06/24/17 20:30 (Protonix Inj) 40 mg DAILY IV PUSH 06/25/17 09:00 06/26/17 09:26 (Zofran Inj) 4 mg Q6H PRN IV PUSH 06/24/17 20:30 (Duoneb Neb) 1 ampule Q6HR NEB INH 06/24/17 22:00 06/26/17 10:29 (Albuterol Neb) 2.5 mg Q2HR NEB PRN INH 06/24/17 20:30 Miscellaneous Information 1 Q361D XX 06/24/17 20:30 (Chlorhexidine 2% Cloth) 3 pack Taper DAILY@04 TOP 06/25/17 04:00 06/21/18 03:59 06/26/17 04:00 (Chlorhexidine 2% Cloth) 3 pack UNSCH PRN TOP 06/24/17 20:30 (Olesya-Colace) 1 tab BID PO 06/24/17 21:00 06/26/17 09:25 (Milk Of Magnesia Liq) 30 ml Q12H PRN PO 06/24/17 20:30 (Senokot) 17.2 mg Q12H PRN PO 06/24/17 20:30 (Dulcolax Supp) 10 mg DAILY PRN RECTAL 06/24/17 20:30 (Lactulose Liq) 30 ml DAILY PRN PO 06/24/17 20:30 (Cordarone) 200 mg DAILY PO 06/25/17 09:00 06/26/17 09:25 (Methadone Liq) 2.5 mg BID PO 06/24/17 21:00 06/26/17 09:26 (D50w (Vial) Inj) 50 ml UNSCH PRN IV PUSH 06/24/17 20:30 06/24/17 21:15 (Glucagon Inj) 1 mg UNSCH PRN OTHER 06/24/17 20:30 (NovoLIN R SUPPLEMENTAL SCALE) 1 Q4HR SQ 06/25/17 00:00 Piperacillin Sod/ Tazobactam Sod 50 ml @ 100 mls/hr Q8H IV 06/25/17 04:00 06/26/17 04:58 Norepinephrine Bitartrate 4 mg/ Sodium Chloride 250 ml @ 7.5 mls/hr TITRATE PRN IV 06/24/17 21:00 06/24/17 21:27 (Brethine Inj) 1 mg UNSCH PRN SQ 06/24/17 21:00 (NS Flush) DAILY IV FLUSH 06/25/17 09:00 06/26/17 09:26 (NS Flush) UNSCH PRN IV FLUSH 06/24/17 21:30 Dextrose/Sodium Chloride 1,000 ml @ 60 mls/hr [id number] IV 06/24/17 21:45 06/25/17 18:36 (Morphine Inj) 2 mg Q3H PRN IV PUSH 06/24/17 23:15 06/24/17 23:37 (Morphine Inj) 4 mg Q3H PRN IV PUSH 06/24/17 23:15 (SoluCORTEF INJ) 50 mg Q6H IV PUSH 06/25/17 15:00 06/26/17 09:26 Family History non contributory to age. Social History The patient does not smoke cigarettes and does not drink alcohol. Lives at home with his in [facility]. They used to have a caregiver visit in past. Physical Exam Vital Signs Vital Signs Date Time Temp Pulse Resp B/P (MAP) Pulse Ox O2 Delivery O2 Flow Rate FiO2 06/26/17 10:31 95 Nasal Cannula 3.00 06/26/17 06:00 62 06/26/17 06:00 62 97/53 (68) 06/26/17 04:03 98 Venturi Mask 35 06/26/17 04:00 61 06/26/17 04:00 98.2 61 19 109/53 (71) 97 06/26/17 02:00 62 06/26/17 00:00 98.4 62 12 92/53 (66) 99 06/26/17 00:00 62 06/25/17 23:48 94 Venturi Mask 35 06/25/17 22:00 61 06/25/17 20:12 100 Venturi Mask 35 06/25/17 20:00 98.0 65 15 93/54 (67) 94 06/25/17 20:00 65 06/25/17 18:00 60 06/25/17 18:00 60 106/59 (75) 06/25/17 16:31 61 20 107/51 (69) 98 06/25/17 16:00 97.9 61 20 115/59 (77) 98 06/25/17 16:00 61 06/25/17 15:30 65 14 108/56 (73) 97 06/25/17 15:00 58 24 100/55 (70) 99 06/25/17 14:30 60 21 100/57 (71) 99 06/25/17 14:00 60 06/25/17 14:00 60 16 102/54 (70) 98 06/25/17 13:30 60 21 111/55 (73) 98 06/25/17 13:00 60 21 130/60 (83) 99 06/25/17 13:00 60 130/60 06/25/17 12:30 59 119/58 06/25/17 12:15 61 24 125/59 (81) 100 06/25/17 12:00 97.0 64 16 96/55 (69) 100 06/25/17 12:00 61 123/59 06/25/17 12:00 61 06/25/17 11:48 61 21 99/54 (69) 100 Physical Exam GENERAL: This is a well-nourished, well-developed patient, in no apparent distress. SKIN: No rashes, ecchymoses or lesions. Cool and dry. HEAD: Atraumatic. Normocephalic. No temporal or scalp tenderness. EYES: Pupils equal round and reactive. Extraocular motions intact. No scleral icterus. No injection or drainage. ENT: Nose without bleeding, purulent drainage or septal hematoma. Throat without erythema, tonsillar hypertrophy or exudate. Uvula midline. Airway patent. NECK: Trachea midline. Supple, nontender, no meningeal signs. CARDIOVASCULAR: Regular rate and rhythm without murmurs. RESPIRATORY: Clear to auscultation. Breath sounds equal bilaterally. No wheezes , rales, or rhonchi. GASTROINTESTINAL: Abdomen soft, non-tender, nondistended. MUSCULOSKELETAL: Extremities without clubbing, cyanosis, or edema. NEUROLOGICAL: Awake and alert. Cranial nerves II through XII intact. Motor and sensory grossly within normal limits. Five out of 5 muscle strength in all muscle groups. Normal speech. Psych cooperative Pacemaker site with no e.o infection. Scar clean IV line sites with no e.o infection. Laboratory Laboratory Tests Test 06/25/17 15:31 06/25/17 17:00 06/26/17 05:11 Procalcitonin 28.14 Urine Random Creatinine 56.9 Urine Random Sodium 14 White Blood Count 3.7 Red Blood Count 2.45 Hemoglobin 9.1 Hematocrit 26.2 Mean Corpuscular Volume 107.0 Mean Corpuscular Hemoglobin 37.0 Mean Corpuscular Hemoglobin Concent 34.6 Red Cell Distribution Width 14.7 Platelet Count 80 Mean Platelet Volume 9.2 Neutrophils (%) (Auto) 90.7 Lymphocytes (%) (Auto) 4.8 Monocytes (%) (Auto) 3.6 Eosinophils (%) (Auto) 0.3 Basophils (%) (Auto) 0.6 Neutrophils # (Auto) 3.4 Lymphocytes # (Auto) 0.2 Monocytes # (Auto) 0.1 Eosinophils # (Auto) 0.0 Basophils # (Auto) 0.0 CBC Comment AUTO DIFF Differential Total Cells Counted 100 Neutrophils % (Manual) 48 Band Neutrophils % 46 Lymphocytes % 6 Neutrophils # (Manual) 3.5 Differential Comment FINAL DIFF MANUAL Toxic Granulation 2+ Dohle Bodies PRESENT Platelet Estimate LOW Platelet Morphology Comment NORMAL [place] Cells 1+ Blood Urea Nitrogen 102 Creatinine 3.93 Random Glucose 105 Total Protein 5.1 Albumin 1.7 Calcium Level 7.2 Alkaline Phosphatase 42 Aspartate Amino Transf (AST/SGOT) 151 Alanine Aminotransferase (ALT/SGPT) 70 Total Bilirubin 0.8 Sodium Level 147 Potassium Level 4.5 Chloride Level 115 Carbon Dioxide Level 19.5 Anion Gap 13 Estimat Glomerular Filtration Rate 15 Protein Corrected Calcium 8.3 Date/Time Source Procedure Growth Status 06/24/17 16:10 Blood Peripheral Aerobic Blood Culture - Preliminary NO GROWTH IN 2 DAYS Resulted 06/24/17 16:10 Blood Peripheral Anaerobic Blood Culture - Preliminary NO GROWTH IN 2 DAYS Resulted 06/24/17 15:55 Urine Catheterized Urine Urine Culture - Final NO GROWTH IN 48 HOURS. Complete Result Diagram: 06/26/17 0511 06/26/17 0511 Imaging Last Impressions Hepatobiliary Scan Nuclear Medicine 06/25/17 0000 Signed Impressions: Service Date/Time: Sunday, June 25, 2017 10:43 - CONCLUSION: 1. No evidence for cystic duct obstruction. 2. Biliary enteric reflux. Braulio Sellers MD Chest X-Ray [id number] Signed Impressions: Service Date/Time: Saturday, June 24, 2017 21:28 - CONCLUSION: 1. NG tube at the distal esophagus. This should be advanced. 2. Good placement of a right internal jugular central line. A pneumothorax is not seen. Alli Schroeder MD Abdomen/Pelvis CT [id number] Signed Impressions: Service Date/Time: Saturday, June 24, 2017 19:29 - CONCLUSION: 1. Colonic diverticulosis. Significant inflammatory change is not seen. 2. Distended gallbladder with suspected tiny stones. Definite inflammatory change around the gallbladder is not seen on this CT examination. 3. 3.9 cm abdominal aortic aneurysm. This was present previously. Alli Schroeder MD Assessment and Plan Assessment and Plan Severe Sepsis present on admission ? acute cholecystitis. Colonic diverticulosis. ? Diverticulitis Acute renal failure: sepsis, ? baseline Elevated procalcitonin in patient with cancer ? TNF related exaggerated response. Recs Continue Zosyn IV for now. Follow cultures follow clinically. Follow ECHO to ensure no vegetation Rosio Beckman CCM, MD, MD Jun 26, 2017 11:08
[2017-06-26] MEDS: MORPHINE SULFATE 4 MG/ML INJ IV PUSH PRN ×2 (11:39→15:39)
[2017-06-26] MEDS: DEXT 5%-NACL 0.9% 1000 ML INJ 1,000 ML IV SCH (11:39)
--- NOTE | 2017-06-26 12:48 | PD.ONC.PN ---
Subjective Subjective Remarks Afebrile Still with abdominal pain Complains of right leg pain due to sciatica Objective Data Date Time Temp Pulse Resp B/P (MAP) Pulse Ox O2 Delivery O2 Flow Rate FiO2 06/26/17 12:00 65 06/26/17 12:00 97.7 65 15 102/58 (73) 99 06/26/17 11:30 67 13 118/59 (78) 99 06/26/17 11:00 68 25 119/57 (77) 97 06/26/17 10:31 63 20 111/71 (84) 97 06/26/17 10:31 95 Nasal Cannula 3.00 06/26/17 10:01 66 14 167/63 (97) 06/26/17 10:00 66 06/26/17 09:30 66 22 133/66 (88) 96 06/26/17 09:00 64 20 135/69 (91) 87 06/26/17 08:30 67 28 130/58 (82) 96 06/26/17 08:00 97.6 59 22 107/54 (71) 98 06/26/17 08:00 59 06/26/17 07:30 61 20 111/53 (72) 98 06/26/17 07:00 59 22 104/53 (70) 100 06/26/17 06:00 62 06/26/17 06:00 62 97/53 (68) 06/26/17 04:03 98 Venturi Mask 35 06/26/17 04:00 61 06/26/17 04:00 98.2 61 19 109/53 (71) 97 06/26/17 02:00 62 06/26/17 00:00 98.4 62 12 92/53 (66) 99 06/26/17 00:00 62 06/25/17 23:48 94 Venturi Mask 35 06/25/17 22:00 61 06/25/17 20:12 100 Venturi Mask 35 06/25/17 20:00 98.0 65 15 93/54 (67) 94 06/25/17 20:00 65 06/25/17 18:00 60 06/25/17 18:00 60 106/59 (75) 06/25/17 16:31 61 20 107/51 (69) 98 06/25/17 16:00 97.9 61 20 115/59 (77) 98 06/25/17 16:00 61 06/25/17 15:30 65 14 108/56 (73) 97 06/25/17 15:00 58 24 100/55 (70) 99 06/25/17 14:30 60 21 100/57 (71) 99 06/25/17 14:00 60 06/25/17 14:00 60 16 102/54 (70) 98 06/25/17 13:30 60 21 111/55 (73) 98 06/25/17 13:00 60 21 130/60 (83) 99 06/25/17 13:00 60 130/60 06/26/17 06/26/17 06/26/17 07:00 15:00 23:00 Intake Total 50 ml 1000 ml Output Total 650 ml Balance -600 ml 1000 ml Result Diagram: 06/26/17 0511 06/26/17 0511 Laboratory Results Laboratory Tests Test 06/25/17 15:31 06/25/17 17:00 06/26/17 05:11 Procalcitonin 28.14 ng/mL Urine Random Creatinine 56.9 MG/DL Urine Random Sodium 14 MEQ/L White Blood Count 3.7 TH/MM3 Red Blood Count 2.45 MIL/MM3 Hemoglobin 9.1 GM/DL Hematocrit 26.2 % Mean Corpuscular Volume 107.0 FL Mean Corpuscular Hemoglobin 37.0 PG Mean Corpuscular Hemoglobin Concent 34.6 % Red Cell Distribution Width 14.7 % Platelet Count 80 TH/MM3 Mean Platelet Volume 9.2 FL Neutrophils (%) (Auto) 90.7 % Lymphocytes (%) (Auto) 4.8 % Monocytes (%) (Auto) 3.6 % Eosinophils (%) (Auto) 0.3 % Basophils (%) (Auto) 0.6 % Neutrophils # (Auto) 3.4 TH/MM3 Lymphocytes # (Auto) 0.2 TH/MM3 Monocytes # (Auto) 0.1 TH/MM3 Eosinophils # (Auto) 0.0 TH/MM3 Basophils # (Auto) 0.0 TH/MM3 CBC Comment AUTO DIFF Differential Total Cells Counted 100 Neutrophils % (Manual) 48 % Band Neutrophils % 46 % Lymphocytes % 6 % Neutrophils # (Manual) 3.5 TH/MM3 Differential Comment FINAL DIFF MANUAL Toxic Granulation 2+ Dohle Bodies PRESENT Platelet Estimate LOW Platelet Morphology Comment NORMAL Joe Cells 1+ Blood Urea Nitrogen 102 MG/DL Creatinine 3.93 MG/DL Random Glucose 105 MG/DL Total Protein 5.1 GM/DL Albumin 1.7 GM/DL Calcium Level 7.2 MG/DL Alkaline Phosphatase 42 U/L Aspartate Amino Transf (AST/SGOT) 151 U/L Alanine Aminotransferase (ALT/SGPT) 70 U/L Total Bilirubin 0.8 MG/DL Sodium Level 147 MEQ/L Potassium Level 4.5 MEQ/L Chloride Level 115 MEQ/L Carbon Dioxide Level 19.5 MEQ/L Anion Gap 13 MEQ/L Estimat Glomerular Filtration Rate 15 ML/MIN Protein Corrected Calcium 8.3 MG/DL Culture Results Microbiology Date/Time Source Procedure Growth Status 06/24/17 16:10 Blood Peripheral Aerobic Blood Culture - Preliminary NO GROWTH IN 2 DAYS Resulted 06/24/17 16:10 Blood Peripheral Anaerobic Blood Culture - Preliminary NO GROWTH IN 2 DAYS Resulted 06/24/17 15:55 Blood Peripheral Aerobic Blood Culture - Preliminary NO GROWTH IN 2 DAYS Resulted 06/24/17 15:55 Blood Peripheral Anaerobic Blood Culture - Preliminary NO GROWTH IN 2 DAYS Resulted 06/24/17 15:55 Urine Catheterized Urine Urine Culture - Final NO GROWTH IN 48 HOURS. Complete Administered Medications Medications (Trade) Dose Ordered Sig/Sunil Route PRN Reason Start Time Stop Time Status Last Admin Dose Admin Sodium Chloride (NS Flush) 2 ml BID IV FLUSH 06/24/17 21:00 06/26/17 09:26 Pantoprazole Sodium (Protonix Inj) 40 mg DAILY IV PUSH 06/25/17 09:00 06/26/17 09:26 Albuterol/ Ipratropium (Duoneb Neb) 1 ampule Q6HR NEB INH 06/24/17 22:00 06/26/17 10:29 Chlorhexidine Gluconate (Chlorhexidine 2% Cloth) 3 pack Taper DAILY@04 TOP 06/25/17 04:00 06/21/18 03:59 06/26/17 04:00 Senna/Docusate Sodium (Olesya-Colace) 1 tab BID PO 06/24/17 21:00 06/26/17 09:25 Amiodarone HCl (Cordarone) 200 mg DAILY PO 06/25/17 09:00 06/26/17 09:25 Methadone HCl (Methadone Liq) 2.5 mg BID PO 06/24/17 21:00 06/26/17 09:26 Dextrose (D50w (Vial) Inj) 50 ml UNSCH PRN IV PUSH HYPOGLYCEMIA-SEE COMMENTS 06/24/17 20:30 06/24/17 21:15 Piperacillin Sod/ Tazobactam Sod 50 ml @ 100 mls/hr Q8H IV 06/25/17 04:00 06/26/17 11:38 Norepinephrine Bitartrate 4 mg/ Sodium Chloride 250 ml @ 7.5 mls/hr TITRATE PRN IV Blood pressure management 06/24/17 21:00 06/24/17 21:27 Sodium Chloride (NS Flush) DAILY IV FLUSH 06/25/17 09:00 06/26/17 09:26 Dextrose/Sodium Chloride 1,000 ml @ 60 mls/hr [id number] IV 06/24/17 21:45 06/26/17 11:39 Morphine Sulfate (Morphine Inj) 2 mg Q3H PRN IV PUSH pain 1-5 06/24/17 23:15 06/24/17 23:37 Morphine Sulfate (Morphine Inj) 4 mg Q3H PRN IV PUSH pain 6-10 06/24/17 23:15 06/26/17 11:39 Hydrocortisone Sodium Succinate (SoluCORTEF INJ) 50 mg Q6H IV PUSH 06/25/17 15:00 06/26/17 09:26 Objective Remarks GENERAL: Elderly male who is quite hard of hearing resting in bed watching TV in no acute distress SKIN: Warm and dry. HEAD: Normocephalic. EYES: No injection or drainage. NECK: Supple, trachea midline. CARDIOVASCULAR: Regular rate and rhythm without murmurs. RESPIRATORY: Clear anteriorly. Breathing unlabored. GASTROINTESTINAL: Abdomen distended and somewhat firm. EXTREMITIES: No cyanosis, or edema. MUSCULOSKELETAL: Adequate muscle tone. NEUROLOGICAL: No obvious focal deficit. Awake, alert, and oriented x3. Assessment/Plan Problem List: (1) Pancytopenia ICD Codes: D61.818 - Other pancytopenia Plan: 06/1617: Thrombocytopenia slightly worsened. We'll check haptoglobin, LDH and fibrinogen in a.m. Likely a microangiopathic process due to infection. Hold anticoagulation, imatinib for now. Monitor CBC. -- Likely due to infection -- Will check haptoglobin, LDH and fibrinogen in a.m. 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 I reviewed and agree with the findings presented. I attest that I had a [id number] encounter with the patient on the same day, and personally performed and documented my assessment and findings in the medical record. Complaining Shortness of breath And Abdomen discomfort Pancytopenia due to sepsis Continue to hold gleevec Monitor CBC Patient may go into DIC No evidence of microangiopathic hemolytic anemia We will follow Khushi Reynolds Jun 26, 2017 12:48 Fabrice Patel MD Jun 26, 2017 23:18
--- NOTE | 2017-06-26 14:07 | ECHRPT ---
Indication: EF assessment of CHF CONCLUSIONS Mildly dilated left ventricle. The left ventricular systolic function is mildly reduced with an estimated ejection fraction in the range of 45- 50%. Wall thickness is normal. A pacemaker wire is noted. There is a pacemaker wire present in the right atrial cavity. [id number] mitral valve regurgitation. There is trace tricuspid valve regurgitation. BP: 103 / 56 HR: Rhythm: Sinus MEASUREMENTS (Male / Female) Normal Values Technical Quality:Fair 2D ECHO LV Diastolic Diameter PLAX 6.4 cm 4.2 - 5.9 / 3.9 - 5.3 cm LV Systolic Diameter PLAX 5.2 cm IVS Diastolic Thickness 0.9 cm 0.6 - 1.0 / 0.6 - 0.9 cm LVPW Diastolic Thickness 0.9 cm 0.6 - 1.0 / 0.6 - 0.9 cm LV Relative Wall Thickness 0.3 LVOT Diameter 2.3 cm Aortic Root Diameter 4.1 cm LA Systolic Diameter LX 3.5 cm 3.0 - 4.0 / 2.7 - 3.8 cm M-MODE AV Cusp Separation MM 2.5 cm DOPPLER AV Peak Velocity 225.0 cm/s AV Peak Gradient 20.3 mmHg AV Mean Gradient 11.0 mmHg AV Velocity Time Integral 43.0 cm LVOT Peak Velocity 97.8 cm/s LVOT Peak Gradient 3.8 mmHg LVOT Velocity Time Integral 17.7 cm AV Area Cont Eq vti 1.7 cm AV Area Cont Eq pk 1.8 cm Mitral E Point Velocity 71.6 cm/s Mitral A Point Velocity 85.9 cm/s Mitral E to A Ratio 0.8 LV E' Lateral Velocity 7.9 cm/s Mitral E to LV E' Lateral Ratio 9.1 LV E' Septal Velocity 3.8 cm/s Mitral E to LV E' Septal Ratio 18.8 TR Peak Velocity 244.0 cm/s TR Peak Gradient 23.8 mmHg Right Atrial Pressure 10.0 mmHg Pulmonary Artery Systolic Pressu 33.8 mmHg Right Ventricular Systolic Press 33.8 mmHg FINDINGS LEFT VENTRICLE Mildly dilated left ventricle. The left ventricular systolic function is mildly reduced with an estimated ejection fraction in the range of 45- 50%. Wall thickness is normal. RIGHT VENTRICLE A pacemaker wire is noted. LEFT ATRIUM The left atrial size is normal. RIGHT ATRIUM There is a pacemaker wire present in the right atrial cavity. ATRIAL SEPTUM Normal atrial septal thickness without atrial level shunting by limited color doppler interrogation. AORTA The aortic root and proximal ascending aorta are normal in size on limited imaging. MITRAL VALVE [id number] mitral valve regurgitation. AORTIC VALVE Trileaflet aortic valve. No aortic valve stenosis or regurgitation. TRICUSPID VALVE There is trace tricuspid valve regurgitation. PULMONARY VALVE No pulmonary valve regurgitation or stenosis. VESSELS The inferior vena cava is normal in size. PERICARDIUM No pericardial effusion. Matt Small MD (Electronically Signed) Final Date:26 June 2017 14:06
[2017-06-26] MEDS ORDERED: SOD PHOSPHATE/SOD BIPHOSPHATE (ADULT) ENEMA 133ML RECTAL PRN (15:45)
[2017-06-26] MEDS ORDERED: MAGNESIUM HYDROXIDE SUSP 30 ML CUP PO PRN (15:45)
--- NOTE | 2017-06-26 15:46 | HHI.CCPN ---
Subjective Remarks/Hospital Course 06/24: This is an 82-year-old male. Date of admission 06/24/2017. Past medical history includes CML, COPD, coronary disease, chronic systolic heart failure ejection fraction 15-20%, history of AAA, chronic kidney disease history be, ALEJANDRA, is hiatal hernia, dyslipidemia. See past medical history. Patient presented to [address] [facility] with abdominal pain.. Patient has had subacute has right upper and lower quadrant pain that radiates to his lower back. Since June 05. Today the patient also complains of shortness of breath, diffuse abdominal pain, and one episode of vomiting. Pain is sharp and rated 10/10. Earlier today he was noted to be hypotensive during home health visit. states that he has been drinking lots of fluids but declines solid food. Home health nurse called for [facility] transport to ED. is noted be hypotensive and has received 4 L normal saline today. Lactate essentially normal. Of note patient was seen on 06/22. He was give was given morphine, Toradol, and Zofran in the ED. Abnormal laboratories including elevated CPK 2600. Creatinine is currently 4.2 which is above baseline. He has been not drinking well. CT and is/pelvis revealed diverticulosis, edematous gallbladder with some stones. HIDA scan has been ordered. Central is placed to hypotension. He has received vancomycin and piperacillin/tazobactam in the ED. 06/25: Elderly male laying in bed on nasal cannula. Levophed gtt being titrated down. HIDA scan did not show any obstruction and gall bladder well visualized. 06/26: Patient sitting up in bed on nasal cannula. Much more awake and alert today. Off Levophed. Not in any acute distress. Minimal abdominal discomfort. No nausea or vomiting. Refused NG tube last night. Has not had a BM Objective Vital Signs Date Time Temp Pulse Resp B/P (MAP) Pulse Ox O2 Delivery O2 Flow Rate FiO2 06/26/17 14:00 63 06/26/17 12:00 97.7 15 102/58 (73) 99 06/26/17 10:31 Nasal Cannula 3.00 06/26/17 04:03 35 Intake and Output 06/26/17 06/26/17 06/27/17 08:00 16:00 00:00 Intake Total 50 ml 1000 ml Output Total 650 ml Balance -600 ml 1000 ml Result Diagram: 06/26/17 0511 06/26/17 0511 Other Results Microbiology Date/Time Source Procedure Growth Status 06/24/17 15:55 Urine Catheterized Urine Urine Culture - Final NO GROWTH IN 48 HOURS. Complete Imaging Last Impressions Chest X-Ray 06/24/17 1515 Signed Impressions: Service Date/Time: Saturday, June 24, 2017 16:41 - CONCLUSION: No acute cardiopulmonary abnormality is identified. Chronic interstitial opacities at the lung bases suggest interstitial lung disease. Alli Cohen MD Objective Remarks GENERAL: This is a 82-year-old male, laying in bed on nasal cannula SKIN: Warm and dry. No rash HEAD: Atraumatic. Normocephalic. EYES: Pupils equal and round. No scleral icterus. No injection or drainage. ENT: No nasal bleeding or discharge. Mucous membranes pink and moist. NECK: Trachea midline. No JVD. CARDIOVASCULAR: Regular rate and rhythm. S1, S2no S4. Currently without murmur RESPIRATORY: Few crackles. Breath sounds equal bilaterally. GASTROINTESTINAL: Abdomen soft, distended. Vague tenderness in periumbilical region, no guarding. Bowel sounds sluggish MUSCULOSKELETAL: Extremities with trace lower extremity edema. No obvious deformities. NEUROLOGICAL: Awake and alert. No obvious cranial nerve deficits. Motor grossly within normal limits. Five out of 5 muscle strength in the arms and left leg. Right leg 4-5.. Normal speech. PSYCHIATRIC: Appropriate mood and affect; insight and judgment normal. A/P Assessment and Plan Neuro/Psych: Chronic methadone use History of headache/migraine Cataracts Right ear deafness Holding methadone 2.5 mg by mouth twice a day/home medication Utilize acetaminophen/[place] and morphine for pain management CV: Severe sepsis Chronic systolic heart failure ejection fraction 15% Coronary artery disease History of hypertension History of AAA - Litke History dyslipidemia Elevated CPK History of AICD - Xavier Elevated troponin Left bundle branch block D5 normal saline 60cc/hr Utilize norepinephrine to maintain mean artery pressure greater than equal to 65 Continue amiodarone 200 mg by mouth daily/home medication Holding carvedilol 3.12 mg by mouth twice a day/home medication in view of hypotension 2-D echo with LVEF 45-50%, trace MR and TR Serial troponins. Likely type II demand ischemia secondary to hypotension. Follow trends. Resp: Acute respiratory insufficiency History of ALEJANDRA Currently on nasal cannula. Titrated to keep saturations greater than equal to 90% Incentive spirometry while awake Albuterol/ipratropium aerosols every 4 hours with albuterol aerosols every 2 hours. Dyspnea GI: Abdominal pain Constipation Hiatal hernia Gastroesophageal reflux disease History diverticulosis CT abdomen status post reveals diverticulosis without diverticulitis. Edematous gallbladder with possible stones. HIDA scan shows no obstruction to cystic duct with good visualization of gall bladder. Advance PO as tolerated Pantoprazole for GI prophylaxis Docusate sodium 1 tablet twice a day for bowel regimen. Added milk of magnesia and fleets enema for constipation. Will follow up KUB. : Tatum catheter has been placed for accurate I's and O's in a critically ill patient Endo: Diabetes mellitus Holding glipizide 5 mill grams by mouth daily Sliding-scale insulin to maintain euglycemia with Accu-Cheks every 4 hours/ Novulog low regimen Started stress dose steroids-hydrocortisone 50 mg IV every 6 hourly on 06/25 as patient is on by mouth prednisone at home chronically. Renal: Acute kidney injury in the setting of chronic kidney disease stage IIIB Consulted nephrology. Patient has not seen patient support assistant in the past. No hydronephrosis on CT abdomen/pelvis Strict intake output, monitor and replete electrolytes, follow BUN/creatinine Avoid nephrotoxic drugs Heme: CML since 1998 - on Imatinib 400 mg daily Leukopenia Macrocytic anemia Thrombocytopenia Sees Dr. Patel as an outpatient-consulted Dr. Liu for CML. Follow-up on CBC and coags. ID: Severe sepsis Blood cultures 2, pending Currently on vancomycin/piperacillin/tazobactam. Consulted ID in v/o suspected sepsis in immunocompromised host. FEN: Hypocalcemia 1 g calcium gluconate IV 1. Recheck. Replace electrolytes as clinically indicated MSK: Right hip osteoarthritis PT evaluate and treat Access - Right IJ CVL 06/24 Prophylaxis - GI - pantoprazole - DVT - SCD/heparin subcutaneous. Abilio Mtz MD Jun 26, 2017 15:46
--- NOTE | 2017-06-26 15:52 | RADRPT ---
EXAM DATE/TIME: 06/26/2017 15:13 [facility] COMPARISON: CT ABDOMEN & PELVIS W/O CONTRAST, June 24, 2017, 19:29. INDICATIONS : Distention. MEDICAL HISTORY : Myocardial infarction. Cardiovascular disease Chronic obstructive pulmonary disease. Leukemia. SURGICAL HISTORY : Inguinal hernia repair. Pacemaker. ENCOUNTER: Initial ACUITY: 2 months PAIN SCORE: 10/10 LOCATION: abdomen. FINDINGS: Supine view of the abdomen was performed. Mild distention of small bowel loops with air also identifi ed in the minimally distended colon. Pattern is most characteristic of a hypodynamic ileus. No obviou s pneumoperitoneum on this supine image provided. Degenerative changes in the thoracolumbar spine. CONCLUSION: Mild air distention of the small bowel and colon in a pattern characteristic of a hypodynamic il eus. Christopher Silva MD on June 26, 2017 at 15:47 Board Certified Radiologist. This report was verified electronically.
--- NOTE | 2017-06-26 20:43 | HHI.NPPN ---
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 I was called to see the patient because of elevated BUN and creatinine. Additional Remarks Patient is more alert, now with nasal cannula, not in distress. Objective Data Data 06/26/17 06/27/17 19:00 07:00 Intake Total 1918 ml Output Total 750 ml Balance 1168 ml Intake Oral 480 ml IV Total 1438 ml Output Urine Total 750 ml Gastric Drainage Total 0 ml # Bowel Movements 0 Vital Signs Date Time Temp Pulse Resp B/P (MAP) Pulse Ox O2 Delivery O2 Flow Rate FiO2 06/26/17 18:00 62 130/58 (82) 06/26/17 18:00 72 06/26/17 16:30 64 12 110/57 (74) 93 06/26/17 16:01 97.6 66 15 98/51 (67) 98 06/26/17 16:00 65 19 98 06/26/17 16:00 65 06/26/17 15:30 77 21 114/52 (72) 92 06/26/17 15:01 64 21 121/53 (75) 99 06/26/17 15:00 66 21 98 06/26/17 14:01 64 21 105/59 (74) 99 06/26/17 14:00 65 18 99 06/26/17 14:00 63 06/26/17 13:30 65 13 120/58 (78) 06/26/17 13:00 70 19 112/66 (81) 77 06/26/17 12:00 65 06/26/17 12:00 97.7 65 15 102/58 (73) 99 06/26/17 11:30 67 13 118/59 (78) 99 06/26/17 11:00 68 25 119/57 (77) 97 06/26/17 10:31 63 20 111/71 (84) 97 06/26/17 10:31 95 Nasal Cannula 3.00 06/26/17 10:01 66 14 167/63 (97) 06/26/17 10:00 66 06/26/17 09:30 66 22 133/66 (88) 96 06/26/17 09:00 64 20 135/69 (91) 87 06/26/17 08:30 67 28 130/58 (82) 96 06/26/17 08:00 97.6 59 22 107/54 (71) 98 06/26/17 08:00 59 06/26/17 07:30 61 20 111/53 (72) 98 06/26/17 07:00 59 22 104/53 (70) 100 06/26/17 06:00 62 06/26/17 06:00 62 97/53 (68) 06/26/17 04:03 98 Venturi Mask 35 06/26/17 04:00 61 06/26/17 04:00 98.2 61 19 109/53 (71) 97 06/26/17 02:00 62 06/26/17 00:00 98.4 62 12 92/53 (66) 99 06/26/17 00:00 62 06/25/17 23:48 94 Venturi Mask 35 06/25/17 22:00 61 -: 06/26/17 0511 06/26/17 0511 Physical Exam General Appearance: No Acute Distress, Comfortable Eyes Eye Exam: Pupils Equal Throat Throat Exam: Oral Mucosa [place] & Moist Neck Neck Exam: Neck Supple Pulmonary Resp Exam: Breath Sounds Equal, No Distress, Rhonchi, Sputum, Decreased Bases Cardiology CV Exam: Regular, Normal Sinus Rhythm Gastrointestinal/Abdomen GI Exam: Soft, Non-Tender, Bowel Sounds Present Extremeties Extremities Exam: Trace Edema Neurologic Neuro Exam: Alert, Awake, Oriented Psychiatric Psych Exam: Appropriate Responses Assessment/Plan Assessment Summary: LEESA/Acute Renal Failure, Hypertension, CKD Stage IV Problem List: (1) COPD (chronic obstructive pulmonary disease) ICD Codes: J44.9 - Chronic obstructive pulmonary disease, unspecified Status: Chronic (2) Bronchitis ICD Codes: J40 - Bronchitis, not specified as acute or chronic Status: Acute (3) HTN (hypertension) ICD Codes: I10 - Essential (primary) hypertension Status: Chronic (4) Diabetes mellitus ICD Codes: E11.9 - Type 2 diabetes mellitus without complications (5) Acute respiratory failure ICD Codes: J96.00 - Acute respiratory failure, unspecified whether with hypoxia or hypercapnia (6) Severe sepsis ICD Codes: A41.9 - Sepsis, unspecified organism; R65.20 - Severe sepsis without septic shock Status: Acute (7) Acute kidney injury ICD Codes: N17.9 - Acute kidney failure, unspecified Plan Patient has been non oliguric. Has Chronic kidney disease, possibly stage 4. Now develop LEESA. Creatinine is slowly improving. K is normal, on Zosyn. ID is following. Avoid Nephrotoxins. Follow urine out put and BMP. D/W the in detail. Problem Qualifiers (1) Diabetes mellitus: Qualified Codes: E11.8 - Type 2 diabetes mellitus with unspecified complications (2) Acute respiratory failure: Qualified Codes: J96.02 - Acute respiratory failure with hypercapnia Bismark Woods MD Jun 26, 2017 20:43
[2017-06-26] MEDS: BISACODYL EC 5 MG TABEC PO SCH (21:26)
[2017-06-27] VITALS (20 sets, daily range): BP systolic 92–146; BP diastolic 51–86; PULSE 62–78; RESP 12–22; TEMP 97.5–98.2; O2SAT 91–99
[2017-06-27] MEDS: HYDROCORTISONE SOD SUCCINATE 100 MG VIAL IV PUSH SCH ×4 (02:17→20:19)
[2017-06-27] MEDS: RESP: ALBUTEROL 2.5 MG/IPRATROPIUM 0.5 MG NEB (SCH) INH ×4 (03:43→20:23)
[2017-06-27] MEDS: PIPERACIL-TAZO 2.25 GM PREMIX 50 ML IV SCH (04:00)
[2017-06-27] MEDS: CHLORHEXIDINE GLUCONATE 2 % 1 PACK (2 CLOTHS) TOP SCH (04:00)
[2017-06-27] MEDS: INSULIN NovoLIN REGULAR SUPPLEMENTAL SCALE SQ SCH ×7 (04:00→23:40)
[2017-06-27] MEDS: MORPHINE SULFATE 4 MG/ML INJ IV PUSH PRN (04:45)
[2017-06-27 05:41] LABS: AUTOMATED NEUTROPHIL # 4.6 TH/MM3 (1.8-7.7); BASOPHIL % 0.1 % (0.0-2.0); EOSINOPHIL % 0.1 % (0.0-4.0); HEMATOCRIT 25.5 % (39.0-51.0); HEMOGLOBIN 8.8 GM/DL (13.0-17.0); LYMPH % 4.6 % (9.0-44.0); LYMPHOCYTE # 0.2 TH/MM3 (1.0-4.8); MEAN CORPUSCULAR HGB CONC 34.6 % (32.0-36.0); MEAN PLATELET VOLUME 9.1 FL (7.0-11.0); MONO % 2.7 % (0.0-8.0); MONOCYTE # 0.1 TH/MM3 (0-0.9); NEUT % 92.5 % (16.0-70.0); PLATELET COUNT 58 TH/MM3 (150-450); RED BLOOD COUNT 2.39 MIL/MM3 (4.50-5.90); RED CELL DISTRIBUTION WIDTH 14.9 % (11.6-17.2)
[2017-06-27 06:02] LABS: ALBUMIN 1.7 GM/DL (3.4-5.0); ALT (GPT) 76 U/L (12-78); AST (GOT) 172 U/L (15-37); BICARBONATE 20.1 MEQ/L (21.0-32.0); BLOOD UREA NITROGEN 97 MG/DL (7-18); CALCIUM 7.5 MG/DL (8.5-10.1); CHLORIDE 117 MEQ/L (98-107); CREATININE 3.49 MG/DL (0.60-1.30); GLOMERULAR FILTRATION RATE 17 ML/MIN (>89); GLUCOSE,RANDOM 113 MG/DL (74-106); SODIUM (NA) 148 MEQ/L (136-145)
[2017-06-27 06:04] LABS: ALKALINE PHOSPHATASE 50 U/L (45-117); LDH SERUM 387 U/L (87-241); TOTAL BILIRUBIN ADULT 0.7 MG/DL (0.2-1.0)
[2017-06-27 06:05] LABS: PROTHROMBIN TIME - PATIENT 10.7 SEC (9.8-11.6)
[2017-06-27] MEDS: DEXT 5%-NACL 0.9% 1000 ML INJ 1,000 ML IV SCH (06:05)
[2017-06-27 08:02] LABS: BANDS 9 % (0-6); LYMPHOCYTES 6 % (9-44); MONOCYTES 4 % (0-8); NEUTROPHIL # MANUAL DIFF 4.5 TH/MM3 (1.8-7.7); POLYS (SEG NEUTROPHILS) 81 % (16-70)
[2017-06-27 08:03] LABS: ACANTHOCYTES OCC (NORMAL); BURR CELLS 1+ (NORMAL); DOHLE BODIES PRESENT (NONE SEEN)
[2017-06-27] MEDS: SODIUM CHLORIDE 0.9% FLUSH 10 ML FLUSH IV FLUSH SCH ×3 (08:32→20:18)
[2017-06-27] MEDS: PANTOPRAZOLE SODIUM 40 MG VIAL IV PUSH SCH (08:33)
[2017-06-27] MEDS: DOCUSATE SODIUM 50 MG/SENNA 8.6 MG TAB PO SCH ×2 (08:34→20:19)
[2017-06-27] MEDS: AMIODARONE 200 MG TAB PO SCH (08:34)
[2017-06-27] MEDS: METHADONE HCL 10 MG/10 ML ORAL SOLUTION PO SCH ×2 (08:34→20:19)
--- NOTE | 2017-06-27 09:26 | HHI.CCPN ---
Subjective Remarks/Hospital Course 06/24: This is an 82-year-old male. Date of admission 06/24/2017. Past medical history includes CML, COPD, coronary disease, chronic systolic heart failure ejection fraction 15-20%, history of AAA, chronic kidney disease history be, ALEJANDRA, is hiatal hernia, dyslipidemia. See past medical history. Patient presented to [address] [facility] with abdominal pain.. Patient has had subacute has right upper and lower quadrant pain that radiates to his lower back. Since June 05. Today the patient also complains of shortness of breath, diffuse abdominal pain, and one episode of vomiting. Pain is sharp and rated 10/10. Earlier today he was noted to be hypotensive during home health visit. states that he has been drinking lots of fluids but declines solid food. Home health nurse called for [facility] transport to ED. is noted be hypotensive and has received 4 L normal saline today. Lactate essentially normal. Of note patient was seen on 06/22. He was give was given morphine, Toradol, and Zofran in the ED. Abnormal laboratories including elevated CPK 2600. Creatinine is currently 4.2 which is above baseline. He has been not drinking well. CT and is/pelvis revealed diverticulosis, edematous gallbladder with some stones. HIDA scan has been ordered. Central is placed to hypotension. He has received vancomycin and piperacillin/tazobactam in the ED. 06/25: Elderly male laying in bed on nasal cannula. Levophed gtt being titrated down. HIDA scan did not show any obstruction and gall bladder well visualized. 06/26: Patient sitting up in bed on nasal cannula. Much more awake and alert today. Off Levophed. Not in any acute distress. Minimal abdominal discomfort. No nausea or vomiting. Refused NG tube last night. Has not had a BM 06/27 Patient is lying in bed in NAD. Afebrile. Objective Vital Signs Date Time Temp Pulse Resp B/P (MAP) Pulse Ox O2 Delivery O2 Flow Rate FiO2 06/27/17 06:00 62 128/77 (94) 06/27/17 05:00 19 95 06/27/17 04:00 97.6 06/26/17 20:33 Nasal Cannula 3.00 06/26/17 04:03 35 Intake and Output 06/27/17 06/27/17 06/28/17 08:00 16:00 00:00 Intake Total 1600 ml Output Total 1300 ml Balance 300 ml Result Diagram: 06/27/17 0445 06/27/17 0445 Other Results Laboratory Tests Test 06/27/17 04:45 White Blood Count 5.0 TH/MM3 Red Blood Count 2.39 MIL/MM3 Hemoglobin 8.8 GM/DL Hematocrit 25.5 % Mean Corpuscular Volume 107.0 FL Mean Corpuscular Hemoglobin 37.0 PG Mean Corpuscular Hemoglobin Concent 34.6 % Red Cell Distribution Width 14.9 % Platelet Count 58 TH/MM3 Mean Platelet Volume 9.1 FL Neutrophils (%) (Auto) 92.5 % Lymphocytes (%) (Auto) 4.6 % Monocytes (%) (Auto) 2.7 % Eosinophils (%) (Auto) 0.1 % Basophils (%) (Auto) 0.1 % Neutrophils # (Auto) 4.6 TH/MM3 Lymphocytes # (Auto) 0.2 TH/MM3 Monocytes # (Auto) 0.1 TH/MM3 Eosinophils # (Auto) 0.0 TH/MM3 Basophils # (Auto) 0.0 TH/MM3 CBC Comment AUTO DIFF Differential Total Cells Counted 100 Neutrophils % (Manual) 81 % Band Neutrophils % 9 % Lymphocytes % 6 % Monocytes % 4 % Neutrophils # (Manual) 4.5 TH/MM3 Differential Comment FINAL DIFF MANUAL Dohle Bodies PRESENT Platelet Estimate LOW Platelet Morphology Comment NORMAL [place] Cells 1+ Acanthocytes OCC Haptoglobin 279 MG/DL Prothrombin Time 10.7 SEC Prothromb Time International Ratio 1.0 RATIO Activated Partial Thromboplast Time 28.3 SEC Fibrinogen 670 mg/dL Blood Urea Nitrogen 97 MG/DL Creatinine 3.49 MG/DL Random Glucose 113 MG/DL Total Protein 5.0 GM/DL Albumin 1.7 GM/DL Calcium Level 7.5 MG/DL Alkaline Phosphatase 50 U/L Aspartate Amino Transf (AST/SGOT) 172 U/L Alanine Aminotransferase (ALT/SGPT) 76 U/L Lactate Dehydrogenase 387 U/L Total Bilirubin 0.7 MG/DL Sodium Level 148 MEQ/L Potassium Level 4.2 MEQ/L Chloride Level 117 MEQ/L Carbon Dioxide Level 20.1 MEQ/L Anion Gap 11 MEQ/L Estimat Glomerular Filtration Rate 17 ML/MIN Imaging Last Impressions Abdomen X-Ray 06/26/17 0000 Signed Impressions: Service Date/Time: June 15:13 - CONCLUSION: Mild air distention of the small bowel and colon in a pattern characteristic of a hypodynamic ileus. Christopher Silva MD Hepatobiliary Scan Nuclear Medicine 06/25/17 0000 Signed Impressions: Service Date/Time: Sunday, June 25, 2017 10:43 - CONCLUSION: 1. No evidence for cystic duct obstruction. 2. Biliary enteric reflux. Braulio Sellers MD Chest X-Ray [id number] Signed Impressions: Service Date/Time: Saturday, June 24, 2017 21:28 - CONCLUSION: 1. NG tube at the distal esophagus. This should be advanced. 2. Good placement of a right internal jugular central line. A pneumothorax is not seen. Alli Schroeder MD Abdomen/Pelvis CT [id number] Signed Impressions: Service Date/Time: Saturday, June 24, 2017 19:29 - CONCLUSION: 1. Colonic diverticulosis. Significant inflammatory change is not seen. 2. Distended gallbladder with suspected tiny stones. Definite inflammatory change around the gallbladder is not seen on this CT examination. 3. 3.9 cm abdominal aortic aneurysm. This was present previously. Alli Schroeder MD Objective Remarks GENERAL: This is a 82-year-old male, laying in bed on nasal cannula SKIN: Warm and dry. No rash HEAD: Atraumatic. Normocephalic. EYES: Pupils equal and round. No scleral icterus. No injection or drainage. ENT: No nasal bleeding or discharge. Mucous membranes pink and moist. NECK: Trachea midline. No JVD. CARDIOVASCULAR: Regular rate and rhythm. S1, S2 no S4. Currently without murmur RESPIRATORY: Few crackles. Breath sounds equal bilaterally. GASTROINTESTINAL: Abdomen soft, distended. +BS MUSCULOSKELETAL: Extremities with trace lower extremity edema. No obvious deformities. NEUROLOGICAL: Awake and alert. No obvious cranial nerve deficits. Normal speech. A/P Assessment and Plan Neuro/Psych: Chronic methadone use History of headache/migraine Cataracts Right ear deafness Holding methadone 2.5 mg by mouth twice a day/home medication Utilize acetaminophen/[place] and morphine for pain management CV: Chronic systolic heart failure Coronary artery disease History of hypertension History of AAA - [place] History dyslipidemia Elevated CPK History of AICD - Xavier Elevated troponin Left bundle branch block Monitor HR and BP keep MAP>65mmHg Continue amiodarone 200 mg by mouth daily/home medication 06/26 2-D echo with LVEF 45-50%, trace MR and TR Mild elevated trop Likely type II demand ischemia secondary to previous hypotension and renal dysfunction. Resp: Acute respiratory insufficiency History of ALEJANDRA Currently on nasal cannula. Titrated to keep saturations greater than equal to 90% Incentive spirometry while awake Albuterol/ipratropium aerosols every 4 hours with albuterol aerosols every 2 hours. Dyspnea GI: Abdominal pain(improved) Constipation Hiatal hernia Gastroesophageal reflux disease History diverticulosis KUB abdomen 06/26: Mild air distention of small bowel c/w mild ileus CT abdomen status post reveals diverticulosis without diverticulitis. Edematous gallbladder with possible stones. HIDA scan shows no obstruction to cystic duct with good visualization of gall bladder. Start on clear liquid diet and advance as vanita Pantoprazole for GI prophylaxis Docusate sodium 1 tablet twice a day for bowel regimen. Endo: Diabetes mellitus Sliding-scale insulin to maintain euglycemia with Accu-Cheks every 4 hours/ Novulog low regimen On stress dose steroids-hydrocortisone 50 mg IV every 6 hourly on 06/25 as patient is on by mouth prednisone at home chronically. Renal: Acute kidney injury in the setting of chronic kidney disease stage IIIB No hydronephrosis on CT abdomen/pelvis Strict intake output, monitor and replete electrolytes, follow BUN/creatinine. Avoid nephrotoxic drugs Change IVF 1/2NS@75ml/hr. Renal is following- Dr. 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 Dr. Liu is following for CML. Check Hep ab r/o HIT ID: Sepsis Continue with abx ( Zosyn) monitor for signs of infections ( Fever, WBC) BC, urine cx 06/24: NGTD MSK: Right hip osteoarthritis PT evaluate and treat Access - Right IJ CVL 06/24, d/c central line after peripheral IV's placed Prophylaxis - GI - pantoprazole - DVT - SCD/ level 3 Carlito Lan MD Jun 27, 2017 09:26
[2017-06-27] MEDS: SODIUM CHLOR 0.45% 1000 ML INJ 1,000 ML IV SCH ×2 (09:58→23:36)
--- NOTE | 2017-06-27 11:21 | HHI.IDPN ---
Subjective Subjective Remarks is a 82 y/o CM with PMHx of chronic myeloid leukemia in 1998. The patient has been on Gleevec and he is in remission per review of record and notes of . Reportedly, the patient's , the patient was having problems with walking for the last two weeks. He then noticed severe constipation. Reportedly he was constipated. His stated that finally moved his bowels but he had a very large bowel movement and he made a mess in the bed on the blankets according to his . She also noticed dark stool most likely consistent with blood. He also noticed abdominal distension and could not walk because of that. He was brought into the emergency room by paramedics. In theemergency room, the patient was evaluated by the ER physician. He did not have any fever but he was hypotensive and his blood pressure was 84/86. CBC showed white count of 3.3, hemoglobin 9, hematocrit is 27 and platelet count is 114, 000. The differential count showed 29% bandemia, 5% metamyelocytes, toxic granulation Dohle bodies. The patient was admitted to the hospital for severe sepsis. The patient had a CT scan of the abdomen and pelvis which showed colonic diverticulosis. Significant inflammatory changes are not seen, a distended gallbladder with suspected tiny stones, definitive inflammatory change around the gallbladder is not seen, a 3.9 cm abdominal aortic aneurysm which is stable. The chest x-ray is negative except it shows chronic interstitial opacities in the lung bases suggestive of interstitial lung disease. He also had a HIDA scan which showed no evidence of cystic duct obstruction, biliary enteric reflux noted. Infectious disease was consulted for severe sepsis. The patient was started on antibiotics, Vancomycin and Zosyn. Overnight events reviewed No fever No rash No diarrhea No new complaints No BM yet. Abd pain reduced significantly. Antibiotics Zosyn IV Lines Line sites with no e.o infection Past Medical History reviewed Allergies: Coded Allergies: No Known Allergies (Verified , 09/19/15) Objective . Vital Signs Date Time Temp Pulse Resp B/P (MAP) Pulse Ox O2 Delivery O2 Flow Rate FiO2 06/27/17 10:00 65 06/27/17 09:08 97 Nasal Cannula 3.00 06/27/17 08:00 62 06/27/17 08:00 98.2 62 21 99/51 (67) 97 06/27/17 06:00 62 128/77 (94) 06/27/17 06:00 63 06/27/17 05:00 68 19 92/54 (67) 95 06/27/17 04:00 64 06/27/17 04:00 97.6 67 18 128/60 (82) 98 06/27/17 03:00 65 20 118/63 (81) 97 06/27/17 02:00 74 06/27/17 02:00 67 18 110/56 (74) 95 06/27/17 01:00 67 12 111/60 (77) 97 06/27/17 00:00 66 06/27/17 00:00 97.5 67 22 114/52 (72) 92 06/26/17 23:00 72 23 119/58 (78) 93 06/26/17 22:00 74 06/26/17 22:00 71 27 132/62 (85) 82 06/26/17 21:00 64 19 100/55 (70) 92 06/26/17 20:33 98 Nasal Cannula 3.00 06/26/17 20:00 97.8 67 22 104/60 (75) 93 06/26/17 20:00 68 06/26/17 19:00 64 20 94/52 (66) 06/26/17 18:00 62 130/58 (82) 06/26/17 18:00 72 06/26/17 16:30 64 12 110/57 (74) 93 06/26/17 16:01 97.6 66 15 98/51 (67) 98 06/26/17 16:00 65 19 98 06/26/17 16:00 65 06/26/17 15:30 77 21 114/52 (72) 92 06/26/17 15:01 64 21 121/53 (75) 99 06/26/17 15:00 66 21 98 06/26/17 14:01 64 21 105/59 (74) 99 06/26/17 14:00 65 18 99 06/26/17 14:00 63 06/26/17 13:30 65 13 120/58 (78) 06/26/17 13:00 70 19 112/66 (81) 77 06/26/17 12:00 65 06/26/17 12:00 97.7 65 15 102/58 (73) 99 06/26/17 11:30 67 13 118/59 (78) 99 . Laboratory Tests Test 06/26/17 05:11 06/27/17 04:45 White Blood Count 3.7 TH/MM3 5.0 TH/MM3 Red Blood Count 2.45 MIL/MM3 2.39 MIL/MM3 Hemoglobin 9.1 GM/DL 8.8 GM/DL Hematocrit 26.2 % 25.5 % Mean Corpuscular Volume 107.0 FL 107.0 FL Mean Corpuscular Hemoglobin 37.0 PG 37.0 PG Mean Corpuscular Hemoglobin Concent 34.6 % 34.6 % Red Cell Distribution Width 14.7 % 14.9 % Platelet Count 80 TH/MM3 58 TH/MM3 Mean Platelet Volume 9.2 FL 9.1 FL Neutrophils (%) (Auto) 90.7 % 92.5 % Lymphocytes (%) (Auto) 4.8 % 4.6 % Monocytes (%) (Auto) 3.6 % 2.7 % Eosinophils (%) (Auto) 0.3 % 0.1 % Basophils (%) (Auto) 0.6 % 0.1 % Neutrophils # (Auto) 3.4 TH/MM3 4.6 TH/MM3 Lymphocytes # (Auto) 0.2 TH/MM3 0.2 TH/MM3 Monocytes # (Auto) 0.1 TH/MM3 0.1 TH/MM3 Eosinophils # (Auto) 0.0 TH/MM3 0.0 TH/MM3 Basophils # (Auto) 0.0 TH/MM3 0.0 TH/MM3 CBC Comment AUTO DIFF AUTO DIFF Differential Total Cells Counted 100 100 Neutrophils % (Manual) 48 % 81 % Band Neutrophils % 46 % 9 % Lymphocytes % 6 % 6 % Neutrophils # (Manual) 3.5 TH/MM3 4.5 TH/MM3 Differential Comment FINAL DIFF MANUAL FINAL DIFF MANUAL Toxic Granulation 2+ Dohle Bodies PRESENT PRESENT Platelet Estimate LOW LOW Platelet Morphology Comment NORMAL NORMAL [place] Cells 1+ 1+ Monocytes % 4 % Acanthocytes OCC Haptoglobin 279 MG/DL Laboratory Tests Test 06/25/17 15:31 06/26/17 05:11 06/27/17 04:45 Procalcitonin 28.14 ng/mL Blood Urea Nitrogen 102 MG/DL 97 MG/DL Creatinine 3.93 MG/DL 3.49 MG/DL Random Glucose 105 MG/DL 113 MG/DL Total Protein 5.1 GM/DL 5.0 GM/DL Albumin 1.7 GM/DL 1.7 GM/DL Calcium Level 7.2 MG/DL 7.5 MG/DL Alkaline Phosphatase 42 U/L 50 U/L Aspartate Amino Transf (AST/SGOT) 151 U/L 172 U/L Alanine Aminotransferase (ALT/SGPT) 70 U/L 76 U/L Total Bilirubin 0.8 MG/DL 0.7 MG/DL Sodium Level 147 MEQ/L 148 MEQ/L Potassium Level 4.5 MEQ/L 4.2 MEQ/L Chloride Level 115 MEQ/L 117 MEQ/L Carbon Dioxide Level 19.5 MEQ/L 20.1 MEQ/L Anion Gap 13 MEQ/L 11 MEQ/L Estimat Glomerular Filtration Rate 15 ML/MIN 17 ML/MIN Protein Corrected Calcium 8.3 MG/DL Lactate Dehydrogenase 387 U/L Microbiology Date/Time Source Procedure Growth Status 06/24/17 16:10 Blood Peripheral Aerobic Blood Culture - Preliminary NO GROWTH IN 3 DAYS Resulted 06/24/17 16:10 Blood Peripheral Anaerobic Blood Culture - Preliminary NO GROWTH IN 3 DAYS Resulted 06/24/17 15:55 Blood Peripheral Aerobic Blood Culture - Preliminary NO GROWTH IN 3 DAYS Resulted 06/24/17 15:55 Blood Peripheral Anaerobic Blood Culture - Preliminary NO GROWTH IN 3 DAYS Resulted 06/24/17 15:55 Urine Catheterized Urine Urine Culture - Final NO GROWTH IN 48 HOURS. Complete Imaging Last Impressions Abdomen X-Ray 06/26/17 0000 Signed Impressions: Service Date/Time: June 15:13 - CONCLUSION: Mild air distention of the small bowel and colon in a pattern characteristic of a hypodynamic ileus. Christopher Silva MD Hepatobiliary Scan Nuclear Medicine 06/25/17 0000 Signed Impressions: Service Date/Time: Sunday, June 25, 2017 10:43 - CONCLUSION: 1. No evidence for cystic duct obstruction. 2. Biliary enteric reflux. Braulio Sellers MD Chest X-Ray [id number] Signed Impressions: Service Date/Time: Saturday, June 24, 2017 21:28 - CONCLUSION: 1. NG tube at the distal esophagus. This should be advanced. 2. Good placement of a right internal jugular central line. A pneumothorax is not seen. Alli Schroeder MD Abdomen/Pelvis CT [id number] Signed Impressions: Service Date/Time: Saturday, June 24, 2017 19:29 - CONCLUSION: 1. Colonic diverticulosis. Significant inflammatory change is not seen. 2. Distended gallbladder with suspected tiny stones. Definite inflammatory change around the gallbladder is not seen on this CT examination. 3. 3.9 cm abdominal aortic aneurysm. This was present previously. Alli Schroeder MD Physical Exam GENERAL: This is a well-nourished, well-developed patient, in no apparent distress. SKIN: No rashes, ecchymoses or lesions. Cool and dry. HEAD: Atraumatic. Normocephalic. No temporal or scalp tenderness. EYES: Pupils equal round and reactive. Extraocular motions intact. No scleral icterus. No injection or drainage. ENT: Nose without bleeding, purulent drainage or septal hematoma. Throat without erythema, tonsillar hypertrophy or exudate. Uvula midline. Airway patent. NECK: Trachea midline. Supple, nontender, no meningeal signs. CARDIOVASCULAR: Regular rate and rhythm without murmurs. RESPIRATORY: Clear to auscultation. Breath sounds equal bilaterally. No wheezes , rales, or rhonchi. GASTROINTESTINAL: Abdomen soft, non-tender, nondistended. MUSCULOSKELETAL: Extremities without clubbing, cyanosis, or edema. NEUROLOGICAL: Awake and alert. Cranial nerves II through XII intact. Motor and sensory grossly within normal limits. Five out of 5 muscle strength in all muscle groups. Normal speech. Psych cooperative Pacemaker site with no e.o infection. Scar clean IV line sites with no e.o infection. Assessment & Plan Remarks Hypotension on admission (was on diuretics at home and PO intake was poor, not much fluid intake) Also on intermediate teacher steroids ? stress induced relative insufficiency. Less likely to be cholecystitis based on imaging and clinical findings. Colonic diverticulosis. ? Diverticulitis although exam benign today. Acute renal failure: sepsis, ? baseline. Improving. Elevated procalcitonin in patient with cancer ? TNF related exaggerated response. Recs DC Zosyn IV for now. Sepsis ruled out so far. Follow cultures follow clinically. ECHO with no vegetations. Benji BAER MD Riky: will observe off antibiotics as no obvious source of infection and hypotension multifactorial. Will sign off please call back if any change in clinical condition or questions. Rosio Mtz MD Jun 27, 2017 11:21
--- NOTE | 2017-06-27 12:16 | PD.ONC.PN ---
Subjective Subjective Remarks Afebrile overnight. Patient resting in bed eating lunch with . No complaints. No bleeding. Objective Data Date Time Temp Pulse Resp B/P (MAP) Pulse Ox O2 Delivery O2 Flow Rate FiO2 06/27/17 10:00 65 06/27/17 09:08 97 Nasal Cannula 3.00 06/27/17 08:00 62 06/27/17 08:00 98.2 62 21 99/51 (67) 97 06/27/17 06:00 62 128/77 (94) 06/27/17 06:00 63 06/27/17 05:00 68 19 92/54 (67) 95 06/27/17 04:00 64 06/27/17 04:00 97.6 67 18 128/60 (82) 98 06/27/17 03:00 65 20 118/63 (81) 97 06/27/17 02:00 74 06/27/17 02:00 67 18 110/56 (74) 95 06/27/17 01:00 67 12 111/60 (77) 97 06/27/17 00:00 66 06/27/17 00:00 97.5 67 22 114/52 (72) 92 06/26/17 23:00 72 23 119/58 (78) 93 06/26/17 22:00 74 06/26/17 22:00 71 27 132/62 (85) 82 06/26/17 21:00 64 19 100/55 (70) 92 06/26/17 20:33 98 Nasal Cannula 3.00 06/26/17 20:00 97.8 67 22 104/60 (75) 93 06/26/17 20:00 68 06/26/17 19:00 64 20 94/52 (66) 06/26/17 18:00 62 130/58 (82) 06/26/17 18:00 72 06/26/17 16:30 64 12 110/57 (74) 93 06/26/17 16:01 97.6 66 15 98/51 (67) 98 06/26/17 16:00 65 19 98 06/26/17 16:00 65 06/26/17 15:30 77 21 114/52 (72) 92 06/26/17 15:01 64 21 121/53 (75) 99 06/26/17 15:00 66 21 98 06/26/17 14:01 64 21 105/59 (74) 99 06/26/17 14:00 65 18 99 06/26/17 14:00 63 06/26/17 13:30 65 13 120/58 (78) 06/26/17 13:00 70 19 112/66 (81) 77 06/27/17 06/27/17 06/27/17 07:00 15:00 23:00 Intake Total 1600 ml Output Total 1300 ml Balance 300 ml Result Diagram: 06/27/17 0445 06/27/17 0445 Laboratory Results Laboratory Tests Test 06/27/17 04:45 06/27/17 10:01 White Blood Count 5.0 TH/MM3 Red Blood Count 2.39 MIL/MM3 Hemoglobin 8.8 GM/DL Hematocrit 25.5 % Mean Corpuscular Volume 107.0 FL Mean Corpuscular Hemoglobin 37.0 PG Mean Corpuscular Hemoglobin Concent 34.6 % Red Cell Distribution Width 14.9 % Platelet Count 58 TH/MM3 Mean Platelet Volume 9.1 FL Neutrophils (%) (Auto) 92.5 % Lymphocytes (%) (Auto) 4.6 % Monocytes (%) (Auto) 2.7 % Eosinophils (%) (Auto) 0.1 % Basophils (%) (Auto) 0.1 % Neutrophils # (Auto) 4.6 TH/MM3 Lymphocytes # (Auto) 0.2 TH/MM3 Monocytes # (Auto) 0.1 TH/MM3 Eosinophils # (Auto) 0.0 TH/MM3 Basophils # (Auto) 0.0 TH/MM3 CBC Comment AUTO DIFF Differential Total Cells Counted 100 Neutrophils % (Manual) 81 % Band Neutrophils % 9 % Lymphocytes % 6 % Monocytes % 4 % Neutrophils # (Manual) 4.5 TH/MM3 Differential Comment FINAL DIFF MANUAL Dohle Bodies PRESENT Platelet Estimate LOW Platelet Morphology Comment NORMAL Joe Cells 1+ Acanthocytes OCC Haptoglobin 279 MG/DL Prothrombin Time 10.7 SEC Prothromb Time International Ratio 1.0 RATIO Activated Partial Thromboplast Time 28.3 SEC Fibrinogen 670 mg/dL Blood Urea Nitrogen 97 MG/DL Creatinine 3.49 MG/DL Random Glucose 113 MG/DL Total Protein 5.0 GM/DL Albumin 1.7 GM/DL Calcium Level 7.5 MG/DL Alkaline Phosphatase 50 U/L Aspartate Amino Transf (AST/SGOT) 172 U/L Alanine Aminotransferase (ALT/SGPT) 76 U/L Lactate Dehydrogenase 387 U/L Total Bilirubin 0.7 MG/DL Sodium Level 148 MEQ/L Potassium Level 4.2 MEQ/L Chloride Level 117 MEQ/L Carbon Dioxide Level 20.1 MEQ/L Anion Gap 11 MEQ/L Estimat Glomerular Filtration Rate 17 ML/MIN Culture Results Microbiology Date/Time Source Procedure Growth Status 06/24/17 16:10 Blood Peripheral Aerobic Blood Culture - Preliminary NO GROWTH IN 3 DAYS Resulted 06/24/17 16:10 Blood Peripheral Anaerobic Blood Culture - Preliminary NO GROWTH IN 3 DAYS Resulted 06/24/17 15:55 Blood Peripheral Aerobic Blood Culture - Preliminary NO GROWTH IN 3 DAYS Resulted 06/24/17 15:55 Blood Peripheral Anaerobic Blood Culture - Preliminary NO GROWTH IN 3 DAYS Resulted 06/24/17 15:55 Urine Catheterized Urine Urine Culture - Final NO GROWTH IN 48 HOURS. Complete Administered Medications Medications (Trade) Dose Ordered Sig/Sunil Route PRN Reason Start Time Stop Time Status Last Admin Dose Admin Sodium Chloride (NS Flush) 2 ml BID IV FLUSH 06/24/17 21:00 06/27/17 08:32 Pantoprazole Sodium (Protonix Inj) 40 mg DAILY IV PUSH 06/25/17 09:00 06/27/17 08:33 Albuterol/ Ipratropium (Duoneb Neb) 1 ampule Q6HR NEB INH 06/24/17 22:00 06/27/17 09:08 Chlorhexidine Gluconate (Chlorhexidine 2% Cloth) 3 pack Taper DAILY@04 TOP 06/25/17 04:00 06/21/18 03:59 06/27/17 04:00 Senna/Docusate Sodium (Olesya-Colace) 1 tab BID PO 06/24/17 21:00 06/27/17 08:34 Amiodarone HCl (Cordarone) 200 mg DAILY PO 06/25/17 09:00 06/27/17 08:34 Methadone HCl (Methadone Liq) 2.5 mg BID PO 06/24/17 21:00 06/27/17 08:34 Dextrose (D50w (Vial) Inj) 50 ml UNSCH PRN IV PUSH HYPOGLYCEMIA-SEE COMMENTS 06/24/17 20:30 06/24/17 21:15 Sodium Chloride (NS Flush) DAILY IV FLUSH 06/25/17 09:00 06/27/17 08:32 Morphine Sulfate (Morphine Inj) 2 mg Q3H PRN IV PUSH pain 1-5 06/24/17 23:15 06/24/17 23:37 Morphine Sulfate (Morphine Inj) 4 mg Q3H PRN IV PUSH pain 6-10 06/24/17 23:15 06/27/17 04:45 Hydrocortisone Sodium Succinate (SoluCORTEF INJ) 50 mg Q6H IV PUSH 06/25/17 15:00 06/27/17 08:33 Bisacodyl (Dulcolax Ec) 10 mg HS PO 06/26/17 21:00 06/26/17 21:26 Sodium Chloride 1,000 ml @ 75 mls/hr [id number] IV 06/27/17 10:00 06/27/17 09:58 Objective Remarks GENERAL: Chronically ill male sitting up in bed eating lunch. SKIN: Warm and dry. vas-cath in right neck, no bleeding HEAD: Normocephalic. EYES: No scleral icterus. No injection or drainage. NECK: Supple, trachea midline. CARDIOVASCULAR: +S1/S2 RESPIRATORY: anterior yates clear. GASTROINTESTINAL: Abdomen soft, non-tender, nondistended. EXTREMITIES: No cyanosis. NEUROLOGICAL: awake and alert, normal speech. Assessment/Plan Problem List: (1) Pancytopenia ICD Codes: D61.818 - Other pancytopenia Plan: 06/28/17: platelet count continuing to fall. coags WNL, fibrinogen preserved (and elevated); continue to hold Gleevac. monitor CBC. HIT ordered by campaign management specialist pending -- Likely due to infection -- Will check haptoglobin, LDH and fibrinogen in a.m. 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 This is due to sepsis. I do not think that he has HIT. Monitor CBC The exam, history, and the medical decision-making described in the above note were completed with the assistance of the mid-level provider. I reviewed and agree with the findings presented. I attest that I had a [id number] encounter with the patient on the same day, and personally performed and documented my assessment and findings in the medical record. Mira Zepeda Jun 27, 2017 12:16 Fabrice Patel MD Jun 27, 2017 18:03
--- NOTE | 2017-06-27 17:14 | HHI.NPPN ---
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 I was called to see the patient because of elevated BUN and creatinine. Additional Remarks Patient is alert, now with nasal cannula, not in distress, started liquids. Objective Data Data Vital Signs Date Time Temp Pulse Resp B/P (MAP) Pulse Ox O2 Delivery O2 Flow Rate FiO2 06/27/17 16:00 98.2 70 22 124/62 (82) 94 06/27/17 16:00 70 06/27/17 14:00 67 06/27/17 12:00 65 107/59 (75) 06/27/17 12:00 65 06/27/17 12:00 97.6 65 16 107/59 (75) 06/27/17 10:00 65 06/27/17 09:08 97 Nasal Cannula 3.00 06/27/17 08:00 62 06/27/17 08:00 98.2 62 21 99/51 (67) 97 06/27/17 06:00 62 128/77 (94) 06/27/17 06:00 63 06/27/17 05:00 68 19 92/54 (67) 95 06/27/17 04:00 64 06/27/17 04:00 97.6 67 18 128/60 (82) 98 06/27/17 03:00 65 20 118/63 (81) 97 06/27/17 02:00 74 06/27/17 02:00 67 18 110/56 (74) 95 06/27/17 01:00 67 12 111/60 (77) 97 06/27/17 00:00 66 06/27/17 00:00 97.5 67 22 114/52 (72) 92 06/26/17 23:00 72 23 119/58 (78) 93 06/26/17 22:00 74 06/26/17 22:00 71 27 132/62 (85) 82 06/26/17 21:00 64 19 100/55 (70) 92 06/26/17 20:33 98 Nasal Cannula 3.00 06/26/17 20:00 97.8 67 22 104/60 (75) 93 06/26/17 20:00 68 06/26/17 19:00 64 20 94/52 (66) 06/26/17 18:00 62 130/58 (82) 06/26/17 18:00 72 -: 06/27/17 0445 06/27/17 0445 Physical Exam General Appearance: No Acute Distress, Comfortable Eyes Eye Exam: Pupils Equal Throat Throat Exam: Oral Mucosa [place] & Moist Neck Neck Exam: Neck Supple Pulmonary Resp Exam: Breath Sounds Equal, No Distress, Rhonchi, Sputum, Decreased Bases Cardiology CV Exam: Regular, Normal Sinus Rhythm Gastrointestinal/Abdomen GI Exam: Soft, Non-Tender, Bowel Sounds Present Extremeties Extremities Exam: Trace Edema Neurologic Neuro Exam: Alert, Awake, Oriented Psychiatric Psych Exam: Appropriate Responses Assessment/Plan Assessment Summary: LEESA/Acute Renal Failure, Hypertension, CKD Stage IV Problem List: (1) COPD (chronic obstructive pulmonary disease) ICD Codes: J44.9 - Chronic obstructive pulmonary disease, unspecified Status: Chronic (2) Bronchitis ICD Codes: J40 - Bronchitis, not specified as acute or chronic Status: Acute (3) HTN (hypertension) ICD Codes: I10 - Essential (primary) hypertension Status: Chronic (4) Diabetes mellitus ICD Codes: E11.9 - Type 2 diabetes mellitus without complications (5) Acute respiratory failure ICD Codes: J96.00 - Acute respiratory failure, unspecified whether with hypoxia or hypercapnia (6) Severe sepsis ICD Codes: A41.9 - Sepsis, unspecified organism; R65.20 - Severe sepsis without septic shock Status: Acute (7) Acute kidney injury ICD Codes: N17.9 - Acute kidney failure, unspecified Plan Patient has been non oliguric. Has Chronic kidney disease, possibly stage 4. Now develop LEESA. K is normal, on Zosyn. ID is following. Avoid Nephrotoxins. Follow urine out put and BMP. Creatinine continue to improve. Advance oral intake as per GI. Problem Qualifiers (1) Diabetes mellitus: Qualified Codes: E11.8 - Type 2 diabetes mellitus with unspecified complications (2) Acute respiratory failure: Qualified Codes: J96.02 - Acute respiratory failure with hypercapnia Bismark Woods MD Jun 27, 2017 17:14
[2017-06-27] MEDS: BISACODYL EC 5 MG TABEC PO SCH (20:19)
[2017-06-28] VITALS (35 sets, daily range): BP systolic 83–157; BP diastolic 50–73; PULSE 66–113; RESP 12–38; TEMP 97.8–98.4; O2SAT 71–99
[2017-06-28] MEDS: MORPHINE SULFATE 4 MG/ML INJ IV PUSH PRN (01:38)
[2017-06-28] MEDS: HYDROCORTISONE SOD SUCCINATE 100 MG VIAL IV PUSH SCH ×4 (03:46→21:16)
[2017-06-28] MEDS: INSULIN NovoLIN REGULAR SUPPLEMENTAL SCALE SQ SCH ×5 (03:47→20:00)
[2017-06-28] MEDS: CHLORHEXIDINE GLUCONATE 2 % 1 PACK (2 CLOTHS) TOP SCH (04:00)
[2017-06-28] MEDS: RESP: ALBUTEROL 2.5 MG/IPRATROPIUM 0.5 MG NEB (SCH) INH ×4 (04:15→20:13)
[2017-06-28 05:24] LABS: AUTOMATED NEUTROPHIL # 3.4 TH/MM3 (1.8-7.7); BASOPHIL % 0.1 % (0.0-2.0); EOSINOPHIL % 0.2 % (0.0-4.0); HEMATOCRIT 27.7 % (39.0-51.0); HEMOGLOBIN 9.5 GM/DL (13.0-17.0); LYMPH % 14.7 % (9.0-44.0); LYMPHOCYTE # 0.6 TH/MM3 (1.0-4.8); MEAN CELL VOLUME 107.7 FL (80.0-100.0); MEAN CORPUSCULAR HEMOGLOBIN 36.9 PG (27.0-34.0); MEAN CORPUSCULAR HGB CONC 34.2 % (32.0-36.0); MEAN PLATELET VOLUME 9.2 FL (7.0-11.0); MONO % 3.6 % (0.0-8.0); MONOCYTE # 0.2 TH/MM3 (0-0.9); NEUT % 81.4 % (16.0-70.0); PLATELET COUNT 50 TH/MM3 (150-450); RED BLOOD COUNT 2.57 MIL/MM3 (4.50-5.90); RED CELL DISTRIBUTION WIDTH 14.9 % (11.6-17.2); WHITE BLOOD COUNT 4.2 TH/MM3 (4.0-11.0)
[2017-06-28 05:47] LABS: ALBUMIN 1.8 GM/DL (3.4-5.0); AST (GOT) 111 U/L (15-37); BLOOD UREA NITROGEN 89 MG/DL (7-18); CALCIUM 7.6 MG/DL (8.5-10.1); CHLORIDE 114 MEQ/L (98-107); GLOMERULAR FILTRATION RATE 20 ML/MIN (>89); GLUCOSE,RANDOM 79 MG/DL (74-106); MAGNESIUM 2.8 MG/DL (1.5-2.5); SODIUM (NA) 143 MEQ/L (136-145)
[2017-06-28 06:08] LABS: ALKALINE PHOSPHATASE 44 U/L (45-117); ALT (GPT) 77 U/L (12-78); PHOSPHORUS 4.7 MG/DL (2.5-4.9); TOTAL BILIRUBIN ADULT 0.8 MG/DL (0.2-1.0); TOTAL PROTEIN 5.2 GM/DL (6.4-8.2)
[2017-06-28 06:14] LABS: BANDS 3 % (0-6); LYMPHOCYTES 18 % (9-44); METAMYELOCYTES 5 % (0-1); NEUTROPHIL # MANUAL DIFF 3.4 TH/MM3 (1.8-7.7); POLYS (SEG NEUTROPHILS) 74 % (16-70)
[2017-06-28 06:15] LABS: ACANTHOCYTES OCC (NORMAL); KERATOCYTES OCC (NORMAL)
[2017-06-28] MEDS: DOCUSATE SODIUM 50 MG/SENNA 8.6 MG TAB PO SCH ×2 (08:30→21:19)
[2017-06-28] MEDS: PANTOPRAZOLE SODIUM 40 MG VIAL IV PUSH SCH (08:30)
[2017-06-28] MEDS: AMIODARONE 200 MG TAB PO SCH (08:30)
[2017-06-28] MEDS: METHADONE HCL 10 MG/10 ML ORAL SOLUTION PO SCH ×2 (08:31→21:19)
[2017-06-28] MEDS: SODIUM CHLORIDE 0.9% FLUSH 10 ML FLUSH IV FLUSH SCH ×3 (08:38→21:18)
[2017-06-28] MEDS: DEXT 5%-NACL 0.9% 1000 ML INJ 1,000 ML IV SCH (08:45)
--- NOTE | 2017-06-28 08:48 | HHI.CCPN ---
Subjective Remarks/Hospital Course 06/24: This is an 82-year-old male. Date of admission 06/24/2017. Past medical history includes CML, COPD, coronary disease, chronic systolic heart failure ejection fraction 15-20%, history of AAA, chronic kidney disease history be, ALEJANDRA, is hiatal hernia, dyslipidemia. See past medical history. Patient presented to [address] [facility] with abdominal pain.. Patient has had subacute has right upper and lower quadrant pain that radiates to his lower back. Since June 05. Today the patient also complains of shortness of breath, diffuse abdominal pain, and one episode of vomiting. Pain is sharp and rated 10/10. Earlier today he was noted to be hypotensive during home health visit. states that he has been drinking lots of fluids but declines solid food. Home health nurse called for [facility] transport to ED. is noted be hypotensive and has received 4 L normal saline today. Lactate essentially normal. Of note patient was seen on 06/22. He was give was given morphine, Toradol, and Zofran in the ED. Abnormal laboratories including elevated CPK 2600. Creatinine is currently 4.2 which is above baseline. He has been not drinking well. CT and is/pelvis revealed diverticulosis, edematous gallbladder with some stones. HIDA scan has been ordered. Central is placed to hypotension. He has received vancomycin and piperacillin/tazobactam in the ED. 06/25: Elderly male laying in bed on nasal cannula. Levophed gtt being titrated down. HIDA scan did not show any obstruction and gall bladder well visualized. 06/26: Patient sitting up in bed on nasal cannula. Much more awake and alert today. Off Levophed. Not in any acute distress. Minimal abdominal discomfort. No nausea or vomiting. Refused NG tube last night. Has not had a BM 06/27 Patient is lying in bed in NAD. Afebrile. 06/28 No events overnight. Renal function continue to improve with Cr: 3.0 today from 3.49 Objective Vital Signs Date Time Temp Pulse Resp B/P (MAP) Pulse Ox O2 Delivery O2 Flow Rate FiO2 06/28/17 07:51 Nasal Cannula 3.00 06/28/17 06:09 78 100/51 (67) 06/28/17 04:01 16 94 06/28/17 00:00 98.0 06/26/17 04:03 35 Intake and Output 06/28/17 06/28/17 06/29/17 08:00 16:00 00:00 Intake Total 850 ml Output Total 1000 ml Balance -150 ml Result Diagram: 06/28/175 06/28/175 Other Results Laboratory Tests Test 06/27/17 10:01 06/28/17 04:05 White Blood Count 4.2 TH/MM3 Red Blood Count 2.57 MIL/MM3 Hemoglobin 9.5 GM/DL Hematocrit 27.7 % Mean Corpuscular Volume 107.7 FL Mean Corpuscular Hemoglobin 36.9 PG Mean Corpuscular Hemoglobin Concent 34.2 % Red Cell Distribution Width 14.9 % Platelet Count 50 TH/MM3 Mean Platelet Volume 9.2 FL Neutrophils (%) (Auto) 81.4 % Lymphocytes (%) (Auto) 14.7 % Monocytes (%) (Auto) 3.6 % Eosinophils (%) (Auto) 0.2 % Basophils (%) (Auto) 0.1 % Neutrophils # (Auto) 3.4 TH/MM3 Lymphocytes # (Auto) 0.6 TH/MM3 Monocytes # (Auto) 0.2 TH/MM3 Eosinophils # (Auto) 0.0 TH/MM3 Basophils # (Auto) 0.0 TH/MM3 CBC Comment AUTO DIFF Differential Total Cells Counted 100 Neutrophils % (Manual) 74 % Band Neutrophils % 3 % Lymphocytes % 18 % Neutrophils # (Manual) 3.4 TH/MM3 Metamyelocytes 5 % Differential Comment FINAL DIFF MANUAL Platelet Estimate LOW Platelet Morphology Comment NORMAL Acanthocytes OCC Keratocytes OCC Blood Urea Nitrogen 89 MG/DL Creatinine 3.00 MG/DL Random Glucose 79 MG/DL Total Protein 5.2 GM/DL Albumin 1.8 GM/DL Calcium Level 7.6 MG/DL Phosphorus Level 4.7 MG/DL Magnesium Level 2.8 MG/DL Alkaline Phosphatase 44 U/L Aspartate Amino Transf (AST/SGOT) 111 U/L Alanine Aminotransferase (ALT/SGPT) 77 U/L Total Bilirubin 0.8 MG/DL Sodium Level 143 MEQ/L Potassium Level 4.3 MEQ/L Chloride Level 114 MEQ/L Carbon Dioxide Level 23.0 MEQ/L Anion Gap 6 MEQ/L Estimat Glomerular Filtration Rate 20 ML/MIN Imaging Last Impressions Abdomen X-Ray 06/26/17 0000 Signed Impressions: Service Date/Time: June 15:13 - CONCLUSION: Mild air distention of the small bowel and colon in a pattern characteristic of a hypodynamic ileus. Christopher Silva MD Hepatobiliary Scan Nuclear Medicine 06/25/17 0000 Signed Impressions: Service Date/Time: Sunday, June 25, 2017 10:43 - CONCLUSION: 1. No evidence for cystic duct obstruction. 2. Biliary enteric reflux. Braulio Sellers MD Chest X-Ray [id number] Signed Impressions: Service Date/Time: Saturday, June 24, 2017 21:28 - CONCLUSION: 1. NG tube at the distal esophagus. This should be advanced. 2. Good placement of a right internal jugular central line. A pneumothorax is not seen. Alli Schroeder MD Abdomen/Pelvis CT [id number] Signed Impressions: Service Date/Time: Saturday, June 24, 2017 19:29 - CONCLUSION: 1. Colonic diverticulosis. Significant inflammatory change is not seen. 2. Distended gallbladder with suspected tiny stones. Definite inflammatory change around the gallbladder is not seen on this CT examination. 3. 3.9 cm abdominal aortic aneurysm. This was present previously. Alli Schroeder MD Objective Remarks GENERAL: This is a 82-year-old male, laying in bed on nasal cannula SKIN: Warm and dry. No rash HEAD: Atraumatic. Normocephalic. EYES: Pupils equal and round. No scleral icterus. No injection or drainage. ENT: No nasal bleeding or discharge. Mucous membranes pink and moist. NECK: Trachea midline. No JVD. CARDIOVASCULAR: Regular rate and rhythm. S1, S2 no S4. Currently without murmur RESPIRATORY: Few crackles. Breath sounds equal bilaterally. GASTROINTESTINAL: Abdomen soft, distended. +BS MUSCULOSKELETAL: Extremities with trace lower extremity edema. No obvious deformities. NEUROLOGICAL: Awake and alert. No obvious cranial nerve deficits. Normal speech. A/P Assessment and Plan Neuro/Psych: Chronic methadone use History of headache/migraine Cataracts Right ear deafness methadone 2.5 mg by mouth twice a day/home medication Utilize acetaminophen/Corwith and morphine for pain management CV: Chronic systolic heart failure Coronary artery disease History of hypertension History of AAA - Litke History dyslipidemia Elevated CPK History of AICD - Xavier Elevated troponin Left bundle branch block Monitor HR and BP keep MAP>65mmHg Continue amiodarone 200 mg by mouth daily/home medication 06/26 2-D echo with LVEF 45-50%, trace MR and TR Mild elevated trop Likely type II demand ischemia secondary to previous hypotension and renal dysfunction. Resp: Acute respiratory insufficiency History of ALEJANDRA Currently on nasal cannula. Titrated to keep saturations greater than equal to 90% Incentive spirometry while awake Albuterol/ipratropium aerosols every 4 hours with albuterol aerosols every 2 hours. Dyspnea GI: Abdominal pain(improved) Constipation Hiatal hernia Gastroesophageal reflux disease History diverticulosis Check KUB today KUB abdomen 06/26: Mild air distention of small bowel c/w mild ileus CT abdomen status post reveals diverticulosis without diverticulitis. Edematous gallbladder with possible stones. HIDA scan shows no obstruction to cystic duct with good visualization of gall bladder. On clear liquid diet and advance as vanita Pantoprazole for GI prophylaxis Docusate sodium 1 tablet twice a day for bowel regimen. Endo: Diabetes mellitus Sliding-scale insulin to maintain euglycemia with Accu-Cheks every 4 hours/ Novulog low regimen On stress dose steroids-hydrocortisone 50 mg IV every 6 hourly on 06/25 as patient is on by mouth prednisone at home chronically. Renal: Acute kidney injury in the setting of chronic kidney disease stage IIIB No hydronephrosis on CT abdomen/pelvis Strict intake output, monitor and replete electrolytes, follow BUN/creatinine. Avoid nephrotoxic drugs Change IVF D5NS@75ml/hr. Renal is following- Dr. 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 Dr. Liu is following for CML. Follow up on Hep ab r/o HIT ID: Sepsis Off abx ( Zosyn d/c 06/27) monitor for signs of infections ( Fever, WBC) BC, urine cx 06/24: NGTD MSK: Right hip osteoarthritis PT evaluate and treat Access - Right IJ CVL 06/24, d/c central line after peripheral IV's placed Prophylaxis - GI - pantoprazole - DVT - SCD/ level 3 Carlito Lan MD Jun 28, 2017 08:47
[2017-06-28] MEDS: LACTULOSE SYRUP 20 GM/30 ML CUP PO SCH ×3 (09:00→16:55)
--- NOTE | 2017-06-28 09:48 | RADRPT ---
EXAM DATE/TIME: 06/28/2017 09:18 [place] COMPARISON: ABDOMEN KUB ONLY, June 26, 2017, 15:13. INDICATIONS : Distention. MEDICAL HISTORY : Myocardial infarction. Cardiovascular disease Chronic obstructive SURGICAL HISTORY : Inguinal hernia repair. Pacemaker ENCOUNTER: Subsequent ACUITY: 3 weeks PAIN SCORE: 3/10 LOCATION: All quadrants. FINDINGS: 3 AP supine views of the abdomen. Stomach is gas-filled and moderately distended, similar to the prio r study. Multiple air-filled distended loops of small bowel are unchanged. Scattered gas and stool ag ain seen in the colon. No significant interval change. CONCLUSION: No significant interval change. Distended air-filled small bowel and scattered gas and stool in the c olon again seen. Esteban Tejeda MD on June 28, 2017 at 9:44 Board Certified Radiologist. This report was verified electronically.
[2017-06-28] MEDS: SENNOSIDES SYRUP 8.8 MG/5 ML CUP PO SCH (11:11)
[2017-06-28] MEDS ORDERED: PEG (High)/E-LYTE SOLN 4000 ML BTL PO ONE (11:30)
--- NOTE | 2017-06-28 11:33 | PD.CONS ---
HPI History of Present Illness This is a 82 year old male with hx CML, COPD, CHF, AAA, CKD who presented with sciatic pain. He was found to be hypotensive. GI has been consulted for distended bowel, ileus. He is c/o abd pain for the last 6 months that significantly worsened 1 month ago. The pain is lower abdominal, intermittent. He also developed n/v 1 month ago. He vomits scant amounts of brown bilious emesis. No ale blood in emesis. He admits constipation, has not had BM in 3 d. No blood in stool or diarrhea, no dark tarry stool. He admits passing "alot " of flatus as well as burping. He had an EGD and colonoscopy within the last year but cannot remember who did it and can recall no abnormal results.KUB and 06/28 showing ileus, not much change. (Debora Carver) PFSH Past Medical History CML COPD CHF AAA CKD pacemaker sciatica Past Surgical History Cataract right eye surgery lung biopsy Bilateral ear tubes Left total knee arthroplasty AICD (Debora Carver) Coded Allergies: No Known Allergies (Verified , 09/19/15) Family History unk Social History denies ETOH, tobacco, illicit drug use (Debora Carver) Review of Systems Ears, nose, mouth, throat: DENIES: Throat pain Respiratory: DENIES: Hemoptysis Cardiovascular: DENIES: Chest pain Gastrointestinal: COMPLAINS OF: Abdominal pain, Constipation, Nausea, Vomiting , DENIES: Black stools, Bloody stools, Diarrhea, Hematemesis Genitourinary: DENIES: Hematuria Musculoskeletal: DENIES: Joint Swelling Integumentary: DENIES: Jaundice Hematologic/lymphatic: DENIES: Bruising Neurologic: DENIES: Abnormal gait Psychiatric: DENIES: Confusion (Debora Carver) GI Exam Vitals I&O Vital Signs Date Time Temp Pulse Resp B/P (MAP) Pulse Ox O2 Delivery O2 Flow Rate FiO2 06/28/17 10:00 68 06/28/17 08:00 68 06/28/17 08:00 68 25 95/54 (68) 06/28/17 07:51 Nasal Cannula 3.00 06/28/17 07:45 69 20 06/28/17 07:30 67 20 96/58 (71) 06/28/17 07:15 82 23 06/28/17 07:04 98.0 80 25 112/55 (74) 99 06/28/17 07:00 69 13 83 06/28/17 06:09 78 100/51 (67) 06/28/17 06:00 72 06/28/17 04:01 73 16 110/57 (74) 94 06/28/17 04:00 74 24 110/57 (74) 95 06/28/17 04:00 70 06/28/17 03:00 66 14 128/58 (81) 97 06/28/17 02:00 66 17 115/73 (87) 92 06/28/17 02:00 66 06/28/17 01:00 67 12 84 06/28/17 01:00 67 20 132/66 (88) 84 06/28/17 00:00 98.0 72 22 157/68 (97) 95 06/28/17 00:00 68 06/27/17 23:00 69 18 124/69 (87) 91 06/27/17 22:00 68 06/27/17 22:00 78 22 122/74 (90) 97 06/27/17 21:00 71 17 146/65 (92) 95 06/27/17 20:24 99 Nasal Cannula 3.00 06/27/17 20:00 68 06/27/17 20:00 97.9 67 21 134/86 (102) 93 06/27/17 19:00 68 13 129/60 (83) 96 06/27/17 18:00 77 129/81 (97) 06/27/17 18:00 77 06/27/17 16:00 98.2 70 22 124/62 (82) 94 06/27/17 16:00 70 06/27/17 14:00 67 06/27/17 12:00 65 107/59 (75) 06/27/17 12:00 65 06/27/17 12:00 97.6 65 16 107/59 (75) I/O 06/27/17 06/27/17 06/27/17 06/28/17 06/28/17 06/28/17 07:00 15:00 23:00 07:00 15:00 23:00 Intake Total 1600 ml 271 ml 1635 ml 1850 ml 297 ml Output Total 1300 ml 1000 ml 1000 ml Balance 300 ml 271 ml 635 ml 850 ml 297 ml Intake Oral 550 ml 960 ml 850 ml IV Total 1050 ml 271 ml 675 ml 1000 ml 297 ml Output Urine Total 1300 ml 1000 ml 1000 ml # Bowel Movements 0 0 Imaging Last Impressions Abdomen X-Ray 06/28/17 0000 Signed Impressions: Service Date/Time: Wednesday, June 28, 2017 09:18 - CONCLUSION: No significant interval change. Distended air-filled small bowel and scattered gas and stool in the colon again seen. Esteban Tejeda MD Hepatobiliary Scan Nuclear Medicine 06/25/17 0000 Signed Impressions: Service Date/Time: Sunday, June 25, 2017 10:43 - CONCLUSION: 1. No evidence for cystic duct obstruction. 2. Biliary enteric reflux. Braulio Sellers MD Chest X-Ray [id number] Signed Impressions: Service Date/Time: Saturday, June 24, 2017 21:28 - CONCLUSION: 1. NG tube at the distal esophagus. This should be advanced. 2. Good placement of a right internal jugular central line. A pneumothorax is not seen. Alli Schroeder MD Abdomen/Pelvis CT 06/24/17 1856 Signed Impressions: Service Date/Time: Saturday, June 24, 2017 19:29 - CONCLUSION: 1. Colonic diverticulosis. Significant inflammatory change is not seen. 2. Distended gallbladder with suspected tiny stones. Definite inflammatory change around the gallbladder is not seen on this CT examination. 3. 3.9 cm abdominal aortic aneurysm. This was present previously. Alli Schroeder MD Laboratory Test 06/28/17 04:05 White Blood Count 4.2 TH/MM3 Red Blood Count 2.57 MIL/MM3 Hemoglobin 9.5 GM/DL Hematocrit 27.7 % Mean Corpuscular Volume 107.7 FL Mean Corpuscular Hemoglobin 36.9 PG Mean Corpuscular Hemoglobin Concent 34.2 % Red Cell Distribution Width 14.9 % Platelet Count 50 TH/MM3 Mean Platelet Volume 9.2 FL Neutrophils (%) (Auto) 81.4 % Lymphocytes (%) (Auto) 14.7 % Monocytes (%) (Auto) 3.6 % Eosinophils (%) (Auto) 0.2 % Basophils (%) (Auto) 0.1 % Neutrophils # (Auto) 3.4 TH/MM3 Lymphocytes # (Auto) 0.6 TH/MM3 Monocytes # (Auto) 0.2 TH/MM3 Eosinophils # (Auto) 0.0 TH/MM3 Basophils # (Auto) 0.0 TH/MM3 CBC Comment AUTO DIFF Differential Total Cells Counted 100 Neutrophils % (Manual) 74 % Band Neutrophils % 3 % Lymphocytes % 18 % Neutrophils # (Manual) 3.4 TH/MM3 Metamyelocytes 5 % Differential Comment FINAL DIFF MANUAL Platelet Estimate LOW Platelet Morphology Comment NORMAL Acanthocytes OCC Keratocytes OCC Blood Urea Nitrogen 89 MG/DL Creatinine 3.00 MG/DL Random Glucose 79 MG/DL Total Protein 5.2 GM/DL Albumin 1.8 GM/DL Calcium Level 7.6 MG/DL Phosphorus Level 4.7 MG/DL Magnesium Level 2.8 MG/DL Alkaline Phosphatase 44 U/L Aspartate Amino Transf (AST/SGOT) 111 U/L Alanine Aminotransferase (ALT/SGPT) 77 U/L Total Bilirubin 0.8 MG/DL Sodium Level 143 MEQ/L Potassium Level 4.3 MEQ/L Chloride Level 114 MEQ/L Carbon Dioxide Level 23.0 MEQ/L Anion Gap 6 MEQ/L Estimat Glomerular Filtration Rate 20 ML/MIN Date/Time Source Procedure Growth Status 06/24/17 16:10 Blood Peripheral Aerobic Blood Culture - Preliminary NO GROWTH IN 4 DAYS Resulted 06/24/17 16:10 Blood Peripheral Anaerobic Blood Culture - Preliminary NO GROWTH IN 4 DAYS Resulted 06/24/17 15:55 Urine Catheterized Urine Urine Culture - Final NO GROWTH IN 48 HOURS. Complete Physical Examination HEENT: PERRL; normocephalic; atraumatic; no jaundice. CHEST: Coarse, wheezes CARDIAC: RRR ABDOMEN: Semifirm, distended, nontender; no hepatosplenomegaly; bowel sounds are present in all four quadrants. EXTREMITIES: No clubbing, cyanosis; BLE edema SKIN: Normal; no rash; no jaundice. [employer]IN[employer] W[employer] WEAVER: No focal deficits; alert and oriented times three. (Debora Carver MASK LAYOUT DESIGNER) Assessment and Plan Plan ASSESSMENT - abd pain, n/v - ileus. worsening abd pain 1m ago with n/v.. He vomits scant amounts, is somehow tolerating liquid diet and does not vomit what he drinks. No BM 3d. + flatus, BS. KUB 06/26 --> mild ileus. KUB 06/27 --> no significant interal change, stool colon, distended small bowel. CT showing poss gallstones, GB edema. - LEESA, CKDIII, DM, CML with leukopenia, anemia, thrombocytopenia, sepsis unclear source - per CCM PLAN - GoLytely - SSE x 2 - repeat KUB am - if vomiting worsens with GoLytely, d/c GoLytely - if vomiting worsens consider NGT - further recs to follow This pt seen by myself and Dr Garcia and this note is written on his behalf (Debora Carver) Physician Comments Patient seen and examined Agree with above Continue with current supportive care Monitor labs Will consider repeat colonoscopy if symptoms persist or worsen (Kraig Garcia MD) Debora Carver Jun 28, 2017 11:33 Kraig Garcia MD Jun 28, 2017 21:17
--- NOTE | 2017-06-28 11:37 | HHI.NPPN ---
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 I was called to see the patient because of elevated BUN and creatinine. Additional Remarks Ongoing constipation Objective Data Data 06/28/17 06/29/17 19:00 07:00 Intake Total 297 ml Balance 297 ml IV Total 297 ml Vital Signs Date Time Temp Pulse Resp B/P (MAP) Pulse Ox O2 Delivery O2 Flow Rate FiO2 06/28/17 10:00 68 06/28/17 08:00 68 06/28/17 08:00 68 25 95/54 (68) 06/28/17 07:51 Nasal Cannula 3.00 06/28/17 07:45 69 20 06/28/17 07:30 67 20 96/58 (71) 06/28/17 07:15 82 23 06/28/17 07:04 98.0 80 25 112/55 (74) 99 06/28/17 07:00 69 13 83 06/28/17 06:09 78 100/51 (67) 06/28/17 06:00 72 06/28/17 04:01 73 16 110/57 (74) 94 06/28/17 04:00 74 24 110/57 (74) 95 06/28/17 04:00 70 06/28/17 03:00 66 14 128/58 (81) 97 06/28/17 02:00 66 17 115/73 (87) 92 06/28/17 02:00 66 06/28/17 01:00 67 12 84 06/28/17 01:00 67 20 132/66 (88) 84 06/28/17 00:00 98.0 72 22 157/68 (97) 95 06/28/17 00:00 68 06/27/17 23:00 69 18 124/69 (87) 91 06/27/17 22:00 68 06/27/17 22:00 78 22 122/74 (90) 97 06/27/17 21:00 71 17 146/65 (92) 95 06/27/17 20:24 99 Nasal Cannula 3.00 06/27/17 20:00 68 06/27/17 20:00 97.9 67 21 134/86 (102) 93 06/27/17 19:00 68 13 129/60 (83) 96 06/27/17 18:00 77 129/81 (97) 06/27/17 18:00 77 06/27/17 16:00 98.2 70 22 124/62 (82) 94 06/27/17 16:00 70 06/27/17 14:00 67 06/27/17 12:00 65 107/59 (75) 06/27/17 12:00 65 06/27/17 12:00 97.6 65 16 107/59 (75) -: 06/28/17 0405 06/28/17 0405 Physical Exam General Appearance: No Acute Distress, Comfortable Eyes Eye Exam: Pupils Equal Throat Throat Exam: Oral Mucosa [place] & Moist Neck Neck Exam: Neck Supple Pulmonary Resp Exam: Breath Sounds Equal, No Distress, Rhonchi, Sputum, Decreased Bases Cardiology CV Exam: Regular, Normal Sinus Rhythm Gastrointestinal/Abdomen GI Exam: Soft, Non-Tender, Bowel Sounds Present Extremeties Extremities Exam: Trace Edema Neurologic Neuro Exam: Alert, Awake, Oriented Psychiatric Psych Exam: Appropriate Responses Assessment/Plan Assessment Summary: LEESA/Acute Renal Failure, Hypertension, CKD Stage IV Problem List: (1) COPD (chronic obstructive pulmonary disease) ICD Codes: J44.9 - Chronic obstructive pulmonary disease, unspecified Status: Chronic (2) Bronchitis ICD Codes: J40 - Bronchitis, not specified as acute or chronic Status: Acute (3) HTN (hypertension) ICD Codes: I10 - Essential (primary) hypertension Status: Chronic (4) Diabetes mellitus ICD Codes: E11.9 - Type 2 diabetes mellitus without complications (5) Acute respiratory failure ICD Codes: J96.00 - Acute respiratory failure, unspecified whether with hypoxia or hypercapnia (6) Severe sepsis ICD Codes: A41.9 - Sepsis, unspecified organism; R65.20 - Severe sepsis without septic shock Status: Acute (7) Acute kidney injury ICD Codes: N17.9 - Acute kidney failure, unspecified Plan Patient has been non oliguric. Has Chronic kidney disease, possibly stage 4. Now develop LEESA. Creatinine is slowly improving - creatinine 3 today, 2L UOP K is normal, on Zosyn. ID is following. Avoid Nephrotoxins. Follow urine out put and BMP. Problem Qualifiers (1) Diabetes mellitus: Qualified Codes: E11.8 - Type 2 diabetes mellitus with unspecified complications (2) Acute respiratory failure: Qualified Codes: J96.02 - Acute respiratory failure with hypercapnia Emmanuel Montero MD Jun 28, 2017 11:37
[2017-06-28 14:14] LABS: HEPARIN INDUCED PLATELET AB NEGATIVE (NEGATIVE)
[2017-06-28] MEDS: BISACODYL EC 5 MG TABEC PO SCH (21:00)
[2017-06-29] VITALS (14 sets, daily range): BP systolic 112–143; BP diastolic 57–75; PULSE 69–119; RESP 17–30; TEMP 98.1–98.9; O2SAT 85–98
[2017-06-29] MEDS: DEXT 5%-NACL 0.9% 1000 ML INJ 1,000 ML IV SCH (00:12)
[2017-06-29] MEDS: INSULIN NovoLIN REGULAR SUPPLEMENTAL SCALE SQ SCH ×6 (04:00→20:07)
[2017-06-29] MEDS: CHLORHEXIDINE GLUCONATE 2 % 1 PACK (2 CLOTHS) TOP SCH (04:00)
[2017-06-29] MEDS: HYDROCORTISONE SOD SUCCINATE 100 MG VIAL IV PUSH SCH ×4 (05:02→19:45)
[2017-06-29 05:54] LABS: ALBUMIN 1.7 GM/DL (3.4-5.0); ALKALINE PHOSPHATASE 44 U/L (45-117); ALT (GPT) 79 U/L (12-78); AST (GOT) 88 U/L (15-37); BICARBONATE 17.9 MEQ/L (21.0-32.0); BLOOD UREA NITROGEN 78 MG/DL (7-18); CALCIUM 7.7 MG/DL (8.5-10.1); CHLORIDE 118 MEQ/L (98-107); CREATININE 2.52 MG/DL (0.60-1.30); GLOMERULAR FILTRATION RATE 25 ML/MIN (>89); GLUCOSE,RANDOM 118 MG/DL (74-106); SODIUM (NA) 146 MEQ/L (136-145); TOTAL BILIRUBIN ADULT 0.7 MG/DL (0.2-1.0); TOTAL PROTEIN 5.2 GM/DL (6.4-8.2)
[2017-06-29 06:03] LABS: HEMATOCRIT 28.2 % (39.0-51.0); HEMOGLOBIN 9.4 GM/DL (13.0-17.0); MEAN CELL VOLUME 108.9 FL (80.0-100.0); MEAN CORPUSCULAR HEMOGLOBIN 36.2 PG (27.0-34.0); MEAN CORPUSCULAR HGB CONC 33.3 % (32.0-36.0); MEAN PLATELET VOLUME 9.6 FL (7.0-11.0); PLATELET COUNT 60 TH/MM3 (150-450); RED BLOOD COUNT 2.59 MIL/MM3 (4.50-5.90)
[2017-06-29 07:54] LABS: BANDS 10 % (0-6); LYMPHOCYTES 6 % (9-44); METAMYELOCYTES 1 % (0-1); NEUTROPHIL # MANUAL DIFF 4.7 TH/MM3 (1.8-7.7); POLYS (SEG NEUTROPHILS) 83 % (16-70)
[2017-06-29 07:57] LABS: TOXIC GRANULATION 1+ (NORMAL)
--- NOTE | 2017-06-29 08:06 | HHI.CCPN ---
Subjective Remarks/Hospital Course 06/24: This is an 82-year-old male. Date of admission 06/24/2017. Past medical history includes CML, COPD, coronary disease, chronic systolic heart failure ejection fraction 15-20%, history of AAA, chronic kidney disease history be, ALEJANDRA, is hiatal hernia, dyslipidemia. See past medical history. Patient presented to [address] [facility] with abdominal pain.. Patient has had subacute has right upper and lower quadrant pain that radiates to his lower back. Since June 05. Today the patient also complains of shortness of breath, diffuse abdominal pain, and one episode of vomiting. Pain is sharp and rated 10/10. Earlier today he was noted to be hypotensive during home health visit. states that he has been drinking lots of fluids but declines solid food. Home health nurse called for [facility] transport to ED. is noted be hypotensive and has received 4 L normal saline today. Lactate essentially normal. Of note patient was seen on 06/22. He was give was given morphine, Toradol, and Zofran in the ED. Abnormal laboratories including elevated CPK 2600. Creatinine is currently 4.2 which is above baseline. He has been not drinking well. CT and is/pelvis revealed diverticulosis, edematous gallbladder with some stones. HIDA scan has been ordered. Central is placed to hypotension. He has received vancomycin and piperacillin/tazobactam in the ED. 06/25: Elderly male laying in bed on nasal cannula. Levophed gtt being titrated down. HIDA scan did not show any obstruction and gall bladder well visualized. 06/26: Patient sitting up in bed on nasal cannula. Much more awake and alert today. Off Levophed. Not in any acute distress. Minimal abdominal discomfort. No nausea or vomiting. Refused NG tube last night. Has not had a BM 06/27 Patient is lying in bed in NAD. Afebrile. 06/28 No events overnight. Renal function continue to improve with Cr: 3.0 today from 3.49 06/29 Patient lying in bed in NAD. Had BM x 4 since yesterday . Renal function is improving with Cr 2.5 today from 3.0 Objective Vital Signs Date Time Temp Pulse Resp B/P (MAP) Pulse Ox O2 Delivery O2 Flow Rate FiO2 06/29/17 06:00 81 06/29/17 04:00 98.1 23 119/67 (84) 95 06/28/17 20:13 Nasal Cannula 3.00 06/26/17 04:03 35 Intake and Output 06/29/17 06/29/17 06/30/17 08:00 16:00 00:00 Intake Total 1800 ml Output Total 1100 ml Balance 700 ml Result Diagram: 06/29/17 0425 06/29/17 0425 Other Results Laboratory Tests Test 06/29/17 04:25 White Blood Count 5.0 TH/MM3 Red Blood Count 2.59 MIL/MM3 Hemoglobin 9.4 GM/DL Hematocrit 28.2 % Mean Corpuscular Volume 108.9 FL Mean Corpuscular Hemoglobin 36.2 PG Mean Corpuscular Hemoglobin Concent 33.3 % Red Cell Distribution Width 15.0 % Platelet Count 60 TH/MM3 Mean Platelet Volume 9.6 FL CBC Comment AUTO DIFF Differential Total Cells Counted 100 Neutrophils % (Manual) 83 % Band Neutrophils % 10 % Lymphocytes % 6 % Neutrophils # (Manual) 4.7 TH/MM3 Metamyelocytes 1 % Differential Comment FINAL DIFF MANUAL Toxic Granulation 1+ Platelet Estimate LOW Platelet Morphology Comment ENLARGED Blood Urea Nitrogen 78 MG/DL Creatinine 2.52 MG/DL Random Glucose 118 MG/DL Total Protein 5.2 GM/DL Albumin 1.7 GM/DL Calcium Level 7.7 MG/DL Alkaline Phosphatase 44 U/L Aspartate Amino Transf (AST/SGOT) 88 U/L Alanine Aminotransferase (ALT/SGPT) 79 U/L Total Bilirubin 0.7 MG/DL Sodium Level 146 MEQ/L Potassium Level 4.4 MEQ/L Chloride Level 118 MEQ/L Carbon Dioxide Level 17.9 MEQ/L Anion Gap 10 MEQ/L Estimat Glomerular Filtration Rate 25 ML/MIN Imaging Last Impressions Abdomen X-Ray 06/28/17 0000 Signed Impressions: Service Date/Time: Wednesday, June 28, 2017 09:18 - CONCLUSION: No significant interval change. Distended air-filled small bowel and scattered gas and stool in the colon again seen. Esteban Tejeda MD Hepatobiliary Scan Nuclear Medicine 06/25/17 0000 Signed Impressions: Service Date/Time: Sunday, June 25, 2017 10:43 - CONCLUSION: 1. No evidence for cystic duct obstruction. 2. Biliary enteric reflux. Braulio Sellers MD Chest X-Ray [id number]/[id number] Signed Impressions: Service Date/Time: Saturday, June 24, 2017 21:28 - CONCLUSION: 1. NG tube at the distal esophagus. This should be advanced. 2. Good placement of a right internal jugular central line. A pneumothorax is not seen. Alli Schroeder MD Abdomen/Pelvis CT [id number] Signed Impressions: Service Date/Time: Saturday, June 24, 2017 19:29 - CONCLUSION: 1. Colonic diverticulosis. Significant inflammatory change is not seen. 2. Distended gallbladder with suspected tiny stones. Definite inflammatory change around the gallbladder is not seen on this CT examination. 3. 3.9 cm abdominal aortic aneurysm. This was present previously. Alli Schroeder MD Objective Remarks GENERAL: This is a 82-year-old male, laying in bed on nasal cannula SKIN: Warm and dry. No rash HEAD: Atraumatic. Normocephalic. EYES: Pupils equal and round. No scleral icterus. No injection or drainage. ENT: No nasal bleeding or discharge. Mucous membranes pink and moist. NECK: Trachea midline. No JVD. CARDIOVASCULAR: Regular rate and rhythm. S1, S2 no S4. Currently without murmur RESPIRATORY: Few crackles. Breath sounds equal bilaterally. GASTROINTESTINAL: Abdomen soft, distended. +BS MUSCULOSKELETAL: +1 edema. No obvious deformities. NEUROLOGICAL: Awake and alert. No obvious cranial nerve deficits. Normal speech. A/P Assessment and Plan Neuro/Psych: Chronic methadone use History of headache/migraine Cataracts Right ear deafness methadone 2.5 mg by mouth twice a day/home medication Utilize acetaminophen/[place] and morphine for pain management CV: Chronic systolic heart failure Coronary artery disease History of hypertension History of AAA - [place] History dyslipidemia Elevated CPK History of AICD - Xavier Elevated troponin Left bundle branch block Monitor HR and BP keep MAP>65mmHg Continue amiodarone 200 mg by mouth daily/home medication 06/26 2-D echo with LVEF 45-50%, trace MR and TR Mild elevated trop Likely type II demand ischemia secondary to previous hypotension and renal dysfunction. Resp: Acute respiratory insufficiency History of ALEJANDRA Currently on nasal cannula. Titrated to keep saturations greater than equal to 90% Incentive spirometry while awake. Check CXR Albuterol/ipratropium aerosols every 4 hours with albuterol aerosols every 2 hours. Dyspnea GI: Abdominal pain(improved) Constipation Hiatal hernia Gastroesophageal reflux disease History diverticulosis Repeat KUB today. Given Colyte yesterday. GI is following. KUB 06/28: No significant interval change. Distended air-filled small bowel and scattered gas and stool in the colon again seen. KUB abdomen 06/26: Mild air distention of small bowel c/w mild ileus CT abdomen status post reveals diverticulosis without diverticulitis. Edematous gallbladder with possible stones. HIDA scan shows no obstruction to cystic duct with good visualization of gall bladder. On clear liquid diet and advance as vanita Pantoprazole for GI prophylaxis Docusate sodium 1 tablet twice a day for bowel regimen. Endo: Diabetes mellitus SSI to maintain euglycemia with Accu-Cheks every 4 hours/Novulog low regimen Decrease hydrocortisone 50 mg IV Q12 06/25 as patient is on by mouth prednisone at home chronically. Renal: Acute kidney injury in the setting of chronic kidney disease stage IIIB No hydronephrosis on CT abdomen/pelvis Strict intake output, monitor and replete electrolytes, follow BUN/creatinine. Avoid nephrotoxic drugs IVF D5NS@75ml/hr. Renal is following- Dr. 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 Dr. Liu is following for CML. Hep ab negative. ID: Sepsis Off abx ( Zosyn d/c 06/27) monitor for signs of infections ( Fever, WBC) BC, urine cx 06/24: NGTD MSK: Right hip osteoarthritis PT evaluate and treat Access - Peripheral IV's Prophylaxis - GI - pantoprazole - DVT - SCD/ level 3 Carlito Lan MD Jun 29, 2017 08:06
[2017-06-29] MEDS: METHADONE HCL 10 MG/10 ML ORAL SOLUTION PO SCH ×2 (08:28→19:47)
[2017-06-29] MEDS: PANTOPRAZOLE SODIUM 40 MG VIAL IV PUSH SCH (08:28)
[2017-06-29] MEDS: LACTULOSE SYRUP 20 GM/30 ML CUP PO SCH ×3 (08:28→17:20)
[2017-06-29] MEDS: SENNOSIDES SYRUP 8.8 MG/5 ML CUP PO SCH (08:28)
[2017-06-29] MEDS: DOCUSATE SODIUM 50 MG/SENNA 8.6 MG TAB PO SCH ×2 (08:28→19:45)
[2017-06-29] MEDS: AMIODARONE 200 MG TAB PO SCH (08:28)
[2017-06-29] MEDS: SODIUM CHLORIDE 0.9% FLUSH 10 ML FLUSH IV FLUSH SCH ×3 (08:28→19:46)
[2017-06-29] MEDS ORDERED: RESP: ALBUTEROL 2.5 MG/IPRATROPIUM 0.5 MG NEB (PRN) NEB (08:30)
--- NOTE | 2017-06-29 08:43 | RADRPT ---
EXAM DATE/TIME: 06/29/2017 08:17 [facility] COMPARISON: ABDOMEN KUB ONLY, June 28, 2017, 9:18. INDICATIONS : Abdominal distention. MEDICAL HISTORY : Cardiovascular disease. Congestive heart failure. Leukemia. Diabetes. SURGICAL HISTORY : Pacemaker. ENCOUNTER: Subsequent ACUITY: 4 - 6 days PAIN SCORE: 3/10 LOCATION: Abdomen FINDINGS: Persistent mild to moderate distention of small and large bowel. No free air is seen. No organomegaly . CONCLUSION: No significant change, pattern most typical of an ileus. Alli Hansen MD on June 29, 2017 at 8:40 Board Certified Radiologist. This report was verified electronically.
--- NOTE | 2017-06-29 08:45 | RADRPT ---
EXAM DATE/TIME: 06/29/2017 08:22 [facility] COMPARISON: CHEST SINGLE AP, June 24, 2017, 21:28. INDICATIONS : Short of breath. MEDICAL HISTORY : Cardiovascular disease. Congestive heart failure. Leukemia. Diabetes. SURGICAL HISTORY : Pacemaker. ENCOUNTER: Subsequent ACUITY: 4 - 6 days PAIN SCORE: 2/10 LOCATION: Bilateral chest FINDINGS: There is mild bibasilar atelectasis, slightly worse on the right, slightly improved on the left. No l arge effusion demonstrated. No pneumothorax. Mild cardiomegaly is stable. Cardiac pacer/defibrillator again noted. Nasogastric tube has been removed. The right IJ line is also out. CONCLUSION: Mild bibasilar atelectasis. Mild compensated and unchanged cardiomegaly. Alli Hansen MD on June 29, 2017 at 8:43 Board Certified Radiologist. This report was verified electronically.
[2017-06-29] MEDS: RESP: ALBUTEROL 2.5 MG/IPRATROPIUM 0.5 MG NEB (SCH) NEB ×3 (08:52→19:53)
--- NOTE | 2017-06-29 09:53 | HHI.NPPN ---
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 I was called to see the patient because of elevated BUN and creatinine. Additional Remarks Had some bowel movements, no acute complaints Objective Data Data Vital Signs Date Time Temp Pulse Resp B/P (MAP) Pulse Ox O2 Delivery O2 Flow Rate FiO2 06/29/17 08:01 98 Nasal Cannula 3.00 06/29/17 06:00 81 06/29/17 04:00 79 06/29/17 04:00 98.1 79 23 119/67 (84) 95 06/29/17 02:00 95 06/29/17 00:00 98.1 91 30 121/64 (83) 85 06/29/17 00:00 91 06/28/17 22:00 86 06/28/17 20:13 94 Nasal Cannula 3.00 06/28/17 20:00 113 06/28/17 20:00 97.8 84 15 113/58 (76) 89 06/28/17 18:00 75 06/28/17 16:01 76 24 116/59 (78) 79 06/28/17 16:00 78 06/28/17 15:30 74 17 110/62 (78) 98 06/28/17 15:01 76 25 108/58 (75) 95 06/28/17 14:30 74 24 84/54 (64) 99 06/28/17 14:00 79 06/28/17 14:00 79 23 83/50 (61) 71 06/28/17 13:30 83 33 103/62 (76) 76 06/28/17 13:00 86 31 109/58 (75) 91 06/28/17 12:30 74 16 128/60 (82) 94 06/28/17 12:00 76 26 130/73 (92) 97 06/28/17 12:00 98.4 76 26 130/73 (92) 97 06/28/17 12:00 76 06/28/17 11:31 73 25 118/57 (77) 97 06/28/17 11:00 67 21 110/59 (76) 96 06/28/17 10:30 86 38 106/59 (75) 84 06/28/17 10:00 68 28 103/59 (74) 94 06/28/17 10:00 68 -: 06/29/1742406/29/17 042 Physical Exam General Appearance: No Acute Distress, Comfortable Eyes Eye Exam: Pupils Equal Throat Throat Exam: Oral Mucosa [place] & Moist Neck Neck Exam: Neck Supple Pulmonary Resp Exam: Breath Sounds Equal, No Distress, Rhonchi, Sputum, Decreased Bases Cardiology CV Exam: Regular, Normal Sinus Rhythm Gastrointestinal/Abdomen GI Exam: Soft, Non-Tender, Bowel Sounds Present Extremeties Extremities Exam: Trace Edema Neurologic Neuro Exam: Alert, Awake, Oriented Psychiatric Psych Exam: Appropriate Responses Assessment/Plan Assessment Summary: LEESA/Acute Renal Failure, Hypertension, CKD Stage IV Problem List: (1) COPD (chronic obstructive pulmonary disease) ICD Codes: J44.9 - Chronic obstructive pulmonary disease, unspecified Status: Chronic (2) Bronchitis ICD Codes: J40 - Bronchitis, not specified as acute or chronic Status: Acute (3) HTN (hypertension) ICD Codes: I10 - Essential (primary) hypertension Status: Chronic (4) Diabetes mellitus ICD Codes: E11.9 - Type 2 diabetes mellitus without complications (5) Acute respiratory failure ICD Codes: J96.00 - Acute respiratory failure, unspecified whether with hypoxia or hypercapnia (6) Severe sepsis ICD Codes: A41.9 - Sepsis, unspecified organism; R65.20 - Severe sepsis without septic shock Status: Acute (7) Acute kidney injury ICD Codes: N17.9 - Acute kidney failure, unspecified Plan Patient has been non oliguric. Has Chronic kidney disease, possibly stage 4. Now develop LEESA. Creatinine is improving - creatinine 3 -> 2.5 today, 2L UOP On IVFs - will adjust to D5 1/2 NS +75 meq NaHCO3 at 75cc / hour K is normal, on Zosyn. ID is following. Avoid Nephrotoxins. Follow urine out put and BMP. Problem Qualifiers (1) Diabetes mellitus: Qualified Codes: E11.8 - Type 2 diabetes mellitus with unspecified complications (2) Acute respiratory failure: Qualified Codes: J96.02 - Acute respiratory failure with hypercapnia Emmanuel Montero MD Jun 29, 2017 09:53
[2017-06-29] MEDS: SODIUM BICARBONATE 8.4% INJ 75 MEQ in DEXT 5%-NACL 0.45% 1000 ML INJ 1,000 ML IV SCH (10:26)
--- NOTE | 2017-06-29 16:12 | HHI.GIFU ---
Subjective Remarks patient is resting in bed, (+) for BM, states he has a lot of stools, tolerating clears (Dhruv Romero) Objective Vitals I&O Vital Signs Date Time Temp Pulse Resp B/P (MAP) Pulse Ox O2 Delivery O2 Flow Rate FiO2 06/29/17 14:00 80 06/29/17 12:00 98.6 79 21 112/57 (75) 97 06/29/17 12:00 79 06/29/17 10:00 86 06/29/17 08:01 98 Nasal Cannula 3.00 06/29/17 08:00 98.2 84 22 130/75 (93) 97 06/29/17 08:00 84 06/29/17 06:00 81 06/29/17 04:00 79 06/29/17 04:00 98.1 79 23 119/67 (84) 95 06/29/17 02:00 95 06/29/17 00:00 98.1 91 30 121/64 (83) 85 06/29/17 00:00 91 06/28/17 22:00 86 06/28/17 20:13 94 Nasal Cannula 3.00 06/28/17 20:00 113 06/28/17 20:00 97.8 84 15 113/58 (76) 89 06/28/17 18:00 75 I/O 06/28/17 06/28/17 06/28/17 06/29/17 06/29/17 06/29/17 07:00 15:00 23:00 07:00 15:00 23:00 Intake Total 1850 ml 297 ml 2880 ml 1800 ml Output Total 1000 ml 875 ml 1100 ml Balance 850 ml 297 ml 2005 ml 700 ml Intake Oral 850 ml 2880 ml 800 ml IV Total 1000 ml 297 ml 1000 ml Output Urine Total 1000 ml 875 ml 1100 ml # Bowel Movements 1 4 2 Laboratory Laboratory Tests Test 06/29/17 04:25 White Blood Count 5.0 Red Blood Count 2.59 Hemoglobin 9.4 Hematocrit 28.2 Mean Corpuscular Volume 108.9 Mean Corpuscular Hemoglobin 36.2 Mean Corpuscular Hemoglobin Concent 33.3 Red Cell Distribution Width 15.0 Platelet Count 60 Mean Platelet Volume 9.6 CBC Comment AUTO DIFF Differential Total Cells Counted 100 Neutrophils % (Manual) 83 Band Neutrophils % 10 Lymphocytes % 6 Neutrophils # (Manual) 4.7 Metamyelocytes 1 Differential Comment FINAL DIFF MANUAL Toxic Granulation 1+ Platelet Estimate LOW Platelet Morphology Comment ENLARGED Blood Urea Nitrogen 78 Creatinine 2.52 Random Glucose 118 Total Protein 5.2 Albumin 1.7 Calcium Level 7.7 Alkaline Phosphatase 44 Aspartate Amino Transf (AST/SGOT) 88 Alanine Aminotransferase (ALT/SGPT) 79 Total Bilirubin 0.7 Sodium Level 146 Potassium Level 4.4 Chloride Level 118 Carbon Dioxide Level 17.9 Anion Gap 10 Estimat Glomerular Filtration Rate 25 Date/Time Source Procedure Growth Status 06/24/17 16:10 Blood Peripheral Aerobic Blood Culture - Final NO GROWTH IN 5 DAYS Complete 06/24/17 16:10 Blood Peripheral Anaerobic Blood Culture - Final NO GROWTH IN 5 DAYS Complete 06/24/17 15:55 Urine Catheterized Urine Urine Culture - Final NO GROWTH IN 48 HOURS. Complete Imaging Last Impressions Chest X-Ray 06/29/17 0000 Signed Impressions: Service Date/Time: Thursday, June 29, 2017 08:22 - CONCLUSION: Mild bibasilar atelectasis. Mild compensated and unchanged cardiomegaly. Alli Hansen MD Abdomen X-Ray 06/29/17 0000 Signed Impressions: Service Date/Time: Thursday, June 29, 2017 08:17 - CONCLUSION: No significant change, pattern most typical of an ileus. Alli Hansen MD Hepatobiliary Scan Nuclear Medicine 06/25/17 0000 Signed Impressions: Service Date/Time: Sunday, June 25, 2017 10:43 - CONCLUSION: 1. No evidence for cystic duct obstruction. 2. Biliary enteric reflux. Braulio Sellers MD Abdomen/Pelvis CT 06/24/17 1856 Signed Impressions: Service Date/Time: Saturday, June 24, 2017 19:29 - CONCLUSION: 1. Colonic diverticulosis. Significant inflammatory change is not seen. 2. Distended gallbladder with suspected tiny stones. Definite inflammatory change around the gallbladder is not seen on this CT examination. 3. 3.9 cm abdominal aortic aneurysm. This was present previously. Alli Schroeder MD Physical Exam HEENT:normocephalic; atraumatic; no jaundice. NECK: Neck is supple, no JVD, no lymphadenopathy. CHEST: coarse, diminished CARDIAC: Regular rate and rhythm with no murmur gallop or rubs. ABDOMEN: Soft, mildly distended, nontender; no hepatosplenomegaly; bowel sounds are present EXTREMITIES: No clubbing, cyanosis, BLE edema. SKIN: Normal; no rash; no jaundice. CALL OR CONTACT CENTRE COACH: No focal deficits; alert and oriented times three. (Dhruv Romero) Assessment and Plan Plan ASSESSMENT - abd pain, n/v - ileus. worsening abd pain 1m ago with n/v. Doing better today , had BM 5X, since yesterday. KUB today with no change KUB 06/26 --> mild ileus. KUB 06/27 --> no significant interval change, stool colon, distended small bowel. CT showing poss gallstones, GB edema. - LEESA, CKDIII, DM, CML with leukopenia, anemia, thrombocytopenia, sepsis unclear source - per [facility] PLAN - Clear liquids - Patient didn't require golytely or enemas, as he started having BMs - Cont. bowel regimen ( Senokot, lactulose, MOM) - repeat KUB am - if vomiting worsens consider NGT - further recs to follow This pt seen by myself and Dr Garcia and this note is written on his behalf (Dhruv Romero) Physician Comments Patient seen and examined Agree with above Continue with current supportive care Monitor labs Seems to have resolving ileus we will continue to monitor (Kraig Garcia MD) Dhruv Romero Jun 29, 2017 16:12 Kraig Garcia MD Jun 29, 2017 19:32
[2017-06-29] MEDS: BISACODYL EC 5 MG TABEC PO SCH (19:46)
[2017-06-30] VITALS (24 sets, daily range): BP systolic 108–155; BP diastolic 55–109; PULSE 69–103; RESP 12–26; TEMP 97.8–98.6; O2SAT 80–100
[2017-06-30] MEDS: INSULIN NovoLIN REGULAR SUPPLEMENTAL SCALE SQ SCH ×6 (00:15→19:54)
[2017-06-30] MEDS: SODIUM BICARBONATE 8.4% INJ 75 MEQ in DEXT 5%-NACL 0.45% 1000 ML INJ 1,000 ML IV SCH ×2 (01:22→16:39)
[2017-06-30] MEDS: HYDROCORTISONE SOD SUCCINATE 100 MG VIAL IV PUSH SCH ×4 (02:27→19:55)
[2017-06-30] MEDS: RESP: ALBUTEROL 2.5 MG/IPRATROPIUM 0.5 MG NEB (SCH) NEB ×4 (03:31→20:13)
[2017-06-30] MEDS: CHLORHEXIDINE GLUCONATE 2 % 1 PACK (2 CLOTHS) TOP SCH (04:00)
--- NOTE | 2017-06-30 05:02 | RADRPT ---
EXAM DATE/TIME: 06/30/2017 04:44 [place] COMPARISON: ABDOMEN KUB ONLY, June 29, 2017, 8:17. INDICATIONS : Ileus, abdominal pain. MEDICAL HISTORY : Cardiovascular disease. Congestive heart failure. Leukemia. Diabetes. SURGICAL HISTORY : Pacemaker. ENCOUNTER: Subsequent ACUITY: 1 week PAIN SCORE: 0/10 LOCATION: Bilateral Abdomen FINDINGS: Mild generalized distention of small and large bowel again noted, slightly improved in the interim. N o free air seen. CONCLUSION: Slightly decreased distention. Alli Hansen MD on June 30, 2017 at 5:00 Board Certified Radiologist. This report was verified electronically.
[2017-06-30 06:24] LABS: AUTOMATED NEUTROPHIL # 3.7 TH/MM3 (1.8-7.7); BASOPHIL % 0.2 % (0.0-2.0); EOSINOPHIL % 0.1 % (0.0-4.0); HEMATOCRIT 25.9 % (39.0-51.0); HEMOGLOBIN 8.6 GM/DL (13.0-17.0); LYMPH % 8.5 % (9.0-44.0); LYMPHOCYTE # 0.4 TH/MM3 (1.0-4.8); MEAN CELL VOLUME 106.9 FL (80.0-100.0); MEAN CORPUSCULAR HEMOGLOBIN 35.6 PG (27.0-34.0); MEAN CORPUSCULAR HGB CONC 33.3 % (32.0-36.0); MEAN PLATELET VOLUME 9.5 FL (7.0-11.0); MONO % 4.1 % (0.0-8.0); MONOCYTE # 0.2 TH/MM3 (0-0.9); NEUT % 87.1 % (16.0-70.0); PLATELET COUNT 55 TH/MM3 (150-450); RED BLOOD COUNT 2.42 MIL/MM3 (4.50-5.90); RED CELL DISTRIBUTION WIDTH 15.2 % (11.6-17.2); WHITE BLOOD COUNT 4.3 TH/MM3 (4.0-11.0)
[2017-06-30 06:51] LABS: ALBUMIN 1.7 GM/DL (3.4-5.0); ALKALINE PHOSPHATASE 41 U/L (45-117); ALT (GPT) 73 U/L (12-78); AST (GOT) 64 U/L (15-37); BICARBONATE 23.8 MEQ/L (21.0-32.0); BLOOD UREA NITROGEN 57 MG/DL (7-18); CALCIUM 7.6 MG/DL (8.5-10.1); CHLORIDE 114 MEQ/L (98-107); CREATININE 2.01 MG/DL (0.60-1.30); GLOMERULAR FILTRATION RATE 32 ML/MIN (>89); GLUCOSE,RANDOM 114 MG/DL (74-106); SODIUM (NA) 146 MEQ/L (136-145); TOTAL BILIRUBIN ADULT 0.5 MG/DL (0.2-1.0)
[2017-06-30 07:42] LABS: ACANTHOCYTES OCC (NORMAL); BANDS 33 % (0-6); DOHLE BODIES PRESENT (NONE SEEN); LYMPHOCYTES 7 % (9-44); OVALOCYTES 1+ (NORMAL); POLYS (SEG NEUTROPHILS) 60 % (16-70)
--- NOTE | 2017-06-30 08:46 | HHI.CCPN ---
Subjective Remarks/Hospital Course 06/24: This is an 82-year-old male. Date of admission 06/24/2017. Past medical history includes CML, COPD, coronary disease, chronic systolic heart failure ejection fraction 15-20%, history of AAA, chronic kidney disease history be, ALEJANDRA, is hiatal hernia, dyslipidemia. See past medical history. Patient presented to [address] [facility] with abdominal pain.. Patient has had subacute has right upper and lower quadrant pain that radiates to his lower back. Since June 05. Today the patient also complains of shortness of breath, diffuse abdominal pain, and one episode of vomiting. Pain is sharp and rated 10/10. Earlier today he was noted to be hypotensive during home health visit. states that he has been drinking lots of fluids but declines solid food. Home health nurse called for [facility] transport to ED. is noted be hypotensive and has received 4 L normal saline today. Lactate essentially normal. Of note patient was seen on 06/22. He was give was given morphine, Toradol, and Zofran in the ED. Abnormal laboratories including elevated CPK 2600. Creatinine is currently 4.2 which is above baseline. He has been not drinking well. CT and is/pelvis revealed diverticulosis, edematous gallbladder with some stones. HIDA scan has been ordered. Central is placed to hypotension. He has received vancomycin and piperacillin/tazobactam in the ED. 06/25: Elderly male laying in bed on nasal cannula. Levophed gtt being titrated down. HIDA scan did not show any obstruction and gall bladder well visualized. 06/26: Patient sitting up in bed on nasal cannula. Much more awake and alert today. Off Levophed. Not in any acute distress. Minimal abdominal discomfort. No nausea or vomiting. Refused NG tube last night. Has not had a BM 06/27 Patient is lying in bed in NAD. Afebrile. 06/28 No events overnight. Renal function continue to improve with Cr: 3.0 today from 3.49 06/29 Patient lying in bed in NAD. Had BM x 4 since yesterday . Renal function is improving with Cr 2.5 today from 3.0 06/30 No events overnight. KUB this morning showed less distention in small and large bowel. Cr: 2.0 this morning from 2.5. Afebrile. Objective Vital Signs Date Time Temp Pulse Resp B/P (MAP) Pulse Ox O2 Delivery O2 Flow Rate FiO2 06/30/17 06:00 76 06/30/17 04:00 98.6 12 145/70 (95) 98 06/29/17 19:53 Nasal Cannula 3.00 Intake and Output 06/30/17 06/30/17 07/01/17 08:00 16:00 00:00 Intake Total 2229 ml Output Total 1150 ml Balance 1079 ml Result Diagram: 06/30/17 0610 06/30/17 06 Other Results Laboratory Tests Test 06/30/17 06:10 White Blood Count 4.3 TH/MM3 Red Blood Count 2.42 MIL/MM3 Hemoglobin 8.6 GM/DL Hematocrit 25.9 % Mean Corpuscular Volume 106.9 FL Mean Corpuscular Hemoglobin 35.6 PG Mean Corpuscular Hemoglobin Concent 33.3 % Red Cell Distribution Width 15.2 % Platelet Count 55 TH/MM3 Mean Platelet Volume 9.5 FL Neutrophils (%) (Auto) 87.1 % Lymphocytes (%) (Auto) 8.5 % Monocytes (%) (Auto) 4.1 % Eosinophils (%) (Auto) 0.1 % Basophils (%) (Auto) 0.2 % Neutrophils # (Auto) 3.7 TH/MM3 Lymphocytes # (Auto) 0.4 TH/MM3 Monocytes # (Auto) 0.2 TH/MM3 Eosinophils # (Auto) 0.0 TH/MM3 Basophils # (Auto) 0.0 TH/MM3 CBC Comment AUTO DIFF Differential Total Cells Counted 100 Neutrophils % (Manual) 60 % Band Neutrophils % 33 % Lymphocytes % 7 % Neutrophils # (Manual) 4.0 TH/MM3 Differential Comment FINAL DIFF MANUAL Dohle Bodies PRESENT Platelet Estimate LOW Platelet Morphology Comment NORMAL Ovalocytes 1+ Acanthocytes OCC Blood Urea Nitrogen 57 MG/DL Creatinine 2.01 MG/DL Random Glucose 114 MG/DL Total Protein 5.0 GM/DL Albumin 1.7 GM/DL Calcium Level 7.6 MG/DL Alkaline Phosphatase 41 U/L Aspartate Amino Transf (AST/SGOT) 64 U/L Alanine Aminotransferase (ALT/SGPT) 73 U/L Total Bilirubin 0.5 MG/DL Sodium Level 146 MEQ/L Potassium Level 4.0 MEQ/L Chloride Level 114 MEQ/L Carbon Dioxide Level 23.8 MEQ/L Anion Gap 8 MEQ/L Estimat Glomerular Filtration Rate 32 ML/MIN Imaging Last Impressions Abdomen X-Ray 06/30/17 0600 Signed Impressions: Service Date/Time: Friday, June 30, 2017 04:44 - CONCLUSION: Slightly decreased distention. Alli Hansen MD Chest X-Ray 06/29/17 0000 Signed Impressions: Service Date/Time: Thursday, June 29, 2017 08:22 - CONCLUSION: Mild bibasilar atelectasis. Mild compensated and unchanged cardiomegaly. Alli Hansen MD Hepatobiliary Scan Nuclear Medicine 06/25/17 0000 Signed Impressions: Service Date/Time: Sunday, June 25, 2017 10:43 - CONCLUSION: 1. No evidence for cystic duct obstruction. 2. Biliary enteric reflux. Braulio Sellers MD Abdomen/Pelvis CT 06/24/17 1856 Signed Impressions: Service Date/Time: Saturday, June 24, 2017 19:29 - CONCLUSION: 1. Colonic diverticulosis. Significant inflammatory change is not seen. 2. Distended gallbladder with suspected tiny stones. Definite inflammatory change around the gallbladder is not seen on this CT examination. 3. 3.9 cm abdominal aortic aneurysm. This was present previously. Alli Schroeder MD Objective Remarks GENERAL: This is a 82-year-old male, laying in bed on nasal cannula SKIN: Warm and dry. No rash HEAD: Atraumatic. Normocephalic. EYES: Pupils equal and round. No scleral icterus. No injection or drainage. ENT: No nasal bleeding or discharge. Mucous membranes pink and moist. NECK: Trachea midline. No JVD. CARDIOVASCULAR: Regular rate and rhythm. S1, S2 no S4. Currently without murmur RESPIRATORY: Few crackles. Breath sounds equal bilaterally. GASTROINTESTINAL: Abdomen soft, distended. +BS MUSCULOSKELETAL: +1 edema. No obvious deformities. NEUROLOGICAL: Awake and alert. No obvious cranial nerve deficits. Normal speech. A/P Assessment and Plan Neuro/Psych: Chronic methadone use History of headache/migraine Cataracts Right ear deafness methadone 2.5 mg by mouth twice a day/home medication Utilize acetaminophen/[place] and morphine for pain management CV: Chronic systolic heart failure Coronary artery disease History of hypertension History of AAA - [place] History dyslipidemia Elevated CPK History of AICD - [place] Elevated troponin Left bundle branch block Monitor HR and BP keep MAP>65mmHg Continue amiodarone 200 mg by mouth daily/home medication 06/26 2-D echo with LVEF 45-50%, trace MR and TR Mild elevated trop Likely type II demand ischemia secondary to previous hypotension and renal dysfunction. Resp: Acute respiratory insufficiency History of ALEJANDRA Currently on nasal cannula. Titrated to keep saturations greater than equal to 90% Incentive spirometry while awake. Albuterol/ipratropium aerosols every 4 hours with albuterol aerosols every 2 hours. Dyspnea GI: Abdominal pain(improved) Ileus Hiatal hernia Gastroesophageal reflux disease History diverticulosis GI is following. KUB this morning showed less bowel distention. KUB 06/28: No significant interval change. Distended air-filled small bowel and scattered gas and stool in the colon again seen. KUB abdomen 06/26: Mild air distention of small bowel c/w mild ileus CT abdomen status post reveals diverticulosis without diverticulitis. Edematous gallbladder with possible stones. HIDA scan shows no obstruction to cystic duct with good visualization of gall bladder. On clear liquid diet and advance as vanita Pantoprazole for GI prophylaxis Docusate sodium 1 tablet twice a day for bowel regimen. Endo: Diabetes mellitus SSI to maintain euglycemia with Accu-Cheks every 4 hours/Novulog low regimen hydrocortisone 50 mg IV Q12 06/25 as patient is on by mouth prednisone at home chronically. Renal: Acute kidney injury in the setting of chronic kidney disease stage IIIB No hydronephrosis on CT abdomen/pelvis Strict intake output, monitor and replete electrolytes, follow BUN/creatinine. Avoid nephrotoxic drugs Renal function is improving with Cr: 2.0 today from 2.5 IVF D5W 1/2NS+ 75meq bicarb@75ml/hr. Renal is following- Dr. 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 Dr. Liu is following for CML. Hep ab negative. ID: Sepsis Off abx ( Zosyn d/c 06/27) monitor for signs of infections ( Fever, WBC) BC, urine cx 06/24: NGTD MSK: Right hip osteoarthritis PT evaluate and treat Access - Peripheral IV's Prophylaxis - GI - pantoprazole - DVT - SCD/ level 2 Carlito Lan MD Jun 30, 2017 08:46
[2017-06-30] MEDS: SODIUM CHLORIDE 0.9% FLUSH 10 ML FLUSH IV FLUSH SCH ×3 (08:54→19:55)
[2017-06-30] MEDS: PANTOPRAZOLE SODIUM 40 MG VIAL IV PUSH SCH (08:55)
[2017-06-30] MEDS: AMIODARONE 200 MG TAB PO SCH (08:56)
[2017-06-30] MEDS: LACTULOSE SYRUP 20 GM/30 ML CUP PO SCH ×3 (08:56→17:41)
[2017-06-30] MEDS: DOCUSATE SODIUM 50 MG/SENNA 8.6 MG TAB PO SCH ×2 (08:56→19:57)
[2017-06-30] MEDS: METHADONE HCL 10 MG/10 ML ORAL SOLUTION PO SCH ×2 (08:56→19:56)
[2017-06-30] MEDS: SENNOSIDES SYRUP 8.8 MG/5 ML CUP PO SCH (08:58)
--- NOTE | 2017-06-30 13:58 | HHI.GIFU ---
Subjective Remarks resting in the bed, alert, responsive generalized skin color pale family at denies any abd. pain, active BM x 5 on 06/29 with initial hard stool followed with diarrhea attempting BM at present time afebrile (Angela Ziadi) Objective Vitals I&O Vital Signs Date Time Temp Pulse Resp B/P (MAP) Pulse Ox O2 Delivery O2 Flow Rate FiO2 06/30/17 12:00 80 06/30/17 12:00 97.8 80 21 137/64 (88) 97 06/30/17 11:01 84 14 112/56 (74) 97 06/30/17 11:00 80 17 98 06/30/17 10:00 82 20 155/67 (96) 94 06/30/17 10:00 82 06/30/17 09:17 74 15 148/73 (98) 96 06/30/17 09:07 82 26 136/109 (118) 89 06/30/17 09:00 79 26 98 06/30/17 08:48 94 Nasal Cannula 3.00 06/30/17 08:00 81 06/30/17 08:00 98.0 81 26 126/63 (84) 88 06/30/17 07:00 73 14 133/67 (89) 100 06/30/17 06:00 76 06/30/17 04:00 98.6 69 12 145/70 (95) 98 06/30/17 04:00 69 06/30/17 02:00 73 06/30/17 00:00 98.6 74 17 141/82 (101) 98 06/30/17 00:00 74 06/29/17 22:00 69 06/29/17 20:00 90 06/29/17 20:00 98.9 90 29 143/67 (92) 92 06/29/17 19:53 97 Nasal Cannula 3.00 06/29/17 18:00 74 06/29/17 16:00 98.6 77 17 128/59 (82) 98 06/29/17 16:00 77 06/29/17 14:00 80 I/O 06/29/17 06/29/17 06/29/17 06/30/17 06/30/17 06/30/17 07:00 15:00 23:00 07:00 15:00 23:00 Intake Total 1800 ml 1440 ml 2229 ml Output Total 1100 ml 1000 ml 1150 ml Balance 700 ml 440 ml 1079 ml Intake Oral 800 ml 1440 ml 800 ml IV Total 1000 ml 1429 ml Output Urine Total 1100 ml 1000 ml 1150 ml # Bowel Movements 4 2 0 Laboratory Laboratory Tests Test 06/30/17 06:10 White Blood Count 4.3 Red Blood Count 2.42 Hemoglobin 8.6 Hematocrit 25.9 Mean Corpuscular Volume 106.9 Mean Corpuscular Hemoglobin 35.6 Mean Corpuscular Hemoglobin Concent 33.3 Red Cell Distribution Width 15.2 Platelet Count 55 Mean Platelet Volume 9.5 Neutrophils (%) (Auto) 87.1 Lymphocytes (%) (Auto) 8.5 Monocytes (%) (Auto) 4.1 Eosinophils (%) (Auto) 0.1 Basophils (%) (Auto) 0.2 Neutrophils # (Auto) 3.7 Lymphocytes # (Auto) 0.4 Monocytes # (Auto) 0.2 Eosinophils # (Auto) 0.0 Basophils # (Auto) 0.0 CBC Comment AUTO DIFF Differential Total Cells Counted 100 Neutrophils % (Manual) 60 Band Neutrophils % 33 Lymphocytes % 7 Neutrophils # (Manual) 4.0 Differential Comment FINAL DIFF MANUAL Dohle Bodies PRESENT Platelet Estimate LOW Platelet Morphology Comment NORMAL Ovalocytes 1+ Acanthocytes OCC Blood Urea Nitrogen 57 Creatinine 2.01 Random Glucose 114 Total Protein 5.0 Albumin 1.7 Calcium Level 7.6 Alkaline Phosphatase 41 Aspartate Amino Transf (AST/SGOT) 64 Alanine Aminotransferase (ALT/SGPT) 73 Total Bilirubin 0.5 Sodium Level 146 Potassium Level 4.0 Chloride Level 114 Carbon Dioxide Level 23.8 Anion Gap 8 Estimat Glomerular Filtration Rate 32 Date/Time Source Procedure Growth Status 06/24/17 16:10 Blood Peripheral Aerobic Blood Culture - Final NO GROWTH IN 5 DAYS Complete 06/24/17 16:10 Blood Peripheral Anaerobic Blood Culture - Final NO GROWTH IN 5 DAYS Complete 06/24/17 15:55 Urine Catheterized Urine Urine Culture - Final NO GROWTH IN 48 HOURS. Complete Imaging Last Impressions Abdomen X-Ray 06/30/17 0600 Signed Impressions: Service Date/Time: Friday, June 30, 2017 04:44 - CONCLUSION: Slightly decreased distention. Alli Hansen MD Chest X-Ray 06/29/17 0000 Signed Impressions: Service Date/Time: Thursday, June 29, 2017 08:22 - CONCLUSION: Mild bibasilar atelectasis. Mild compensated and unchanged cardiomegaly. Alli Hansen MD Hepatobiliary Scan Nuclear Medicine 06/25/17 0000 Signed Impressions: Service Date/Time: Sunday, June 25, 2017 10:43 - CONCLUSION: 1. No evidence for cystic duct obstruction. 2. Biliary enteric reflux. Braulio Sellers MD Abdomen/Pelvis CT 06/24/17 1856 Signed Impressions: Service Date/Time: Saturday, June 24, 2017 19:29 - CONCLUSION: 1. Colonic diverticulosis. Significant inflammatory change is not seen. 2. Distended gallbladder with suspected tiny stones. Definite inflammatory change around the gallbladder is not seen on this CT examination. 3. 3.9 cm abdominal aortic aneurysm. This was present previously. Alli Schroeder MD Physical Exam HEENT:normocephalic; atraumatic; no jaundice, skin color pale NECK: Neck is supple, no JVD, no lymphadenopathy. CHEST: clear anterior, diminished mild at bases bilaterally CARDIAC: Regular rate and rhythm with no murmur gallop or rubs. ABDOMEN: taut, mildly distended, nontender to light palpation; bowel sounds are present X 4 quadrants EXTREMITIES: No clubbing, cyanosis, 2+ mild weeping BLE edema. SKIN: pale, no rash; no jaundice, turgor thin AUTOMOTIVE INTERNET SALES CONSULTANT: No focal deficits; alert and oriented times three. (Angela Zaidi) Assessment and Plan Plan ASSESSMENT - ileus. Doing better today, had BM hard stool followed with loose stools, 5X total , since yesterday. KUB with mild improvement KUB 06/26 --> mild ileus. KUB 06/27 --> no significant interval change, mild improvement . Stools X 5 yesterday with first stool hard, formed. Attempting BM this pm - History of Diverticulosis, No known Diverticulitis. - GERD -Hiatal Hernia - Gallbladder DIsease with tiny visualized stones. - LEESA, CKDIII, DM, CML with leukopenia, anemia stable labs, thrombocytopenia, sepsis unclear source - negative cultures so far. PLAN - Full liquids to be initiated in am. - Cont. current bowel regimen ( Senokot, lactulose, MOM) with positive BM responses. - PPI IV, transitioned to PO in am if no acute symptom changes - monitor KUB and labs, medical management - monitor GI symptoms of nausea, vomiting, abd. pain, increased abd girth. If warrented, consider NGT This pt seen by myself and Dr Bower and this note is written on his behalf (Angela Zaidi) Physician Comments Seen and examined with SCRAP DROP ENGINEER, doing better. Passing gas and reports BM. Advance diet slowly. Monitor X- rays. (Cady Bower MD) Angela Zaidi Jun 30, 2017 13:58 Cady Bower MD Jun 30, 2017 15:25
--- NOTE | 2017-06-30 14:54 | PD.ONC.PN ---
Subjective Subjective Remarks Afebrile overnight. Patient resting in room with at bedside. No complaints. No bleeding. Objective Data Date Time Temp Pulse Resp B/P (MAP) Pulse Ox O2 Delivery O2 Flow Rate FiO2 06/30/17 14:00 89 06/30/17 12:00 80 06/30/17 12:00 97.8 80 21 137/64 (88) 97 06/30/17 11:01 84 14 112/56 (74) 97 06/30/17 11:00 80 17 98 06/30/17 10:00 82 20 155/67 (96) 94 06/30/17 10:00 82 06/30/17 09:17 74 15 148/73 (98) 96 06/30/17 09:07 82 26 136/109 (118) 89 06/30/17 09:00 79 26 98 06/30/17 08:48 94 Nasal Cannula 3.00 06/30/17 08:00 81 06/30/17 08:00 98.0 81 26 126/63 (84) 88 06/30/17 07:00 73 14 133/67 (89) 100 06/30/17 06:00 76 06/30/17 04:00 98.6 69 12 145/70 (95) 98 06/30/17 04:00 69 06/30/17 02:00 73 06/30/17 00:00 98.6 74 17 141/82 (101) 98 06/30/17 00:00 74 06/29/17 22:00 69 06/29/17 20:00 90 06/29/17 20:00 98.9 90 29 143/67 (92) 92 06/29/17 19:53 97 Nasal Cannula 3.00 06/29/17 18:00 74 06/29/17 16:00 98.6 77 17 128/59 (82) 98 06/29/17 16:00 77 06/30/17 06/30/17 06/30/17 07:00 15:00 23:00 Intake Total 2229 ml Output Total 1150 ml Balance 1079 ml Result Diagram: 06/30/17 0610 06/30/17 0610 Laboratory Results Laboratory Tests Test 06/30/17 06:10 White Blood Count 4.3 TH/MM3 Red Blood Count 2.42 MIL/MM3 Hemoglobin 8.6 GM/DL Hematocrit 25.9 % Mean Corpuscular Volume 106.9 FL Mean Corpuscular Hemoglobin 35.6 PG Mean Corpuscular Hemoglobin Concent 33.3 % Red Cell Distribution Width 15.2 % Platelet Count 55 TH/MM3 Mean Platelet Volume 9.5 FL Neutrophils (%) (Auto) 87.1 % Lymphocytes (%) (Auto) 8.5 % Monocytes (%) (Auto) 4.1 % Eosinophils (%) (Auto) 0.1 % Basophils (%) (Auto) 0.2 % Neutrophils # (Auto) 3.7 TH/MM3 Lymphocytes # (Auto) 0.4 TH/MM3 Monocytes # (Auto) 0.2 TH/MM3 Eosinophils # (Auto) 0.0 TH/MM3 Basophils # (Auto) 0.0 TH/MM3 CBC Comment AUTO DIFF Differential Total Cells Counted 100 Neutrophils % (Manual) 60 % Band Neutrophils % 33 % Lymphocytes % 7 % Neutrophils # (Manual) 4.0 TH/MM3 Differential Comment FINAL DIFF MANUAL Dohle Bodies PRESENT Platelet Estimate LOW Platelet Morphology Comment NORMAL Ovalocytes 1+ Acanthocytes OCC Blood Urea Nitrogen 57 MG/DL Creatinine 2.01 MG/DL Random Glucose 114 MG/DL Total Protein 5.0 GM/DL Albumin 1.7 GM/DL Calcium Level 7.6 MG/DL Alkaline Phosphatase 41 U/L Aspartate Amino Transf (AST/SGOT) 64 U/L Alanine Aminotransferase (ALT/SGPT) 73 U/L Total Bilirubin 0.5 MG/DL Sodium Level 146 MEQ/L Potassium Level 4.0 MEQ/L Chloride Level 114 MEQ/L Carbon Dioxide Level 23.8 MEQ/L Anion Gap 8 MEQ/L Estimat Glomerular Filtration Rate 32 ML/MIN Imaging Studies Last 24 hours Impressions Abdomen X-Ray 06/30/17 0600 Signed Impressions: Service Date/Time: Friday, June 30, 2017 04:44 - CONCLUSION: Slightly decreased distention. Alli Hansen MD Administered Medications Medications (Trade) Dose Ordered Sig/Sunil Route PRN Reason Start Time Stop Time Status Last Admin Dose Admin Sodium Chloride (NS Flush) 2 ml BID IV FLUSH 06/24/17 21:00 06/30/17 08:54 Chlorhexidine Gluconate (Chlorhexidine 2% Cloth) Taper DAILY@04 TOP 06/25/17 04:00 06/21/18 03:59 06/30/17 04:00 Senna/Docusate Sodium (Olesya-Colace) 1 tab BID PO 06/24/17 21:00 06/30/17 08:56 Bisacodyl (Dulcolax Supp) 10 mg DAILY PRN RECTAL SEVERE CONSITIPATION 06/24/17 20:30 06/28/17 08:31 Lactulose (Lactulose Liq) 30 ml DAILY PRN PO SEVERE CONSITIPATION 06/24/17 20:30 06/28/17 08:31 Amiodarone HCl (Cordarone) 200 mg DAILY PO 06/25/17 09:00 06/30/17 08:56 Methadone HCl (Methadone Liq) 2.5 mg BID PO 06/24/17 21:00 06/30/17 08:56 Dextrose (D50w (Vial) Inj) 50 ml UNSCH PRN IV PUSH HYPOGLYCEMIA-SEE COMMENTS 06/24/17 20:30 06/24/17 21:15 Insulin Human Regular (NovoLIN R SUPPLEMENTAL SCALE) 1 Q4HR SQ 06/25/17 00:00 06/30/17 04:35 Sodium Chloride (NS Flush) DAILY IV FLUSH 06/25/17 09:00 06/28/17 08:38 Morphine Sulfate (Morphine Inj) 2 mg Q3H PRN IV PUSH pain 1-5 06/24/17 23:15 06/24/17 23:37 Morphine Sulfate (Morphine Inj) 4 mg Q3H PRN IV PUSH pain 6-10 06/24/17 23:15 06/28/17 01:38 Hydrocortisone Sodium Succinate (SoluCORTEF INJ) 50 mg Q6H IV PUSH 06/25/17 15:00 06/30/17 08:56 Bisacodyl (Dulcolax Ec) 10 mg HS PO 06/26/17 21:00 06/29/17 19:46 Lactulose (Lactulose Liq) 30 ml TID PO 06/28/17 09:00 06/30/17 13:13 Sennosides (Senna Liq) 8.8 mg DAILY PO 06/28/17 09:00 06/30/17 08:58 Albuterol/ Ipratropium (Duoneb Neb) 1 ampule Q6HR NEB NEB 06/29/17 10:00 06/30/17 08:48 Sodium Bicarbonate 75 meq/Dextrose/ Sodium Chloride 1,075 ml @ 75 mls/hr [id number] IV 06/29/17 11:00 06/30/17 01:22 Objective Remarks GENERAL: Chronically ill male lying in bed in nad. SKIN: Warm and dry. HEAD: Normocephalic. EYES: No injection or drainage. NECK: Supple, trachea midline. CARDIOVASCULAR: +S1/S2 RESPIRATORY: anterior yates clear. GASTROINTESTINAL: Abdomen soft, non-tender, nondistended. EXTREMITIES: No cyanosis. NEUROLOGICAL: awake and alert, normal speech. moving all extremities. Assessment/Plan Problem List: (1) Pancytopenia ICD Codes: D61.818 - Other pancytopenia Plan: 06/30/17: platelet count 55K today. monitor CBC, continue to hold Gleevac. 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 I reviewed and agree with the findings presented. I attest that I had a [id number] encounter with the patient on the same day, and personally performed and documented my assessment and findings in the medical record. The exam, history, and the medical decision-making described in the above note were completed with the assistance of the mid-level provider. I reviewed and agree with the findings presented. I attest that I had a [id number] encounter with the patient on the same day, and personally performed and documented my assessment and findings in the medical record. Patient is complaining of abdominal distention and discomfort Denies any Bleeding present at the bedside Poor appetite Abdominal x-ray shows Ileus. Platelets Are still low. This is most likely due to infection. Patient still has Dohle bodies and toxic Granulation On the peripheral smear. I suspect he has a G.I. infection. Infectious disease has signed off. He's Off of the antibiotics. Continue to hold gleevec due to Low platelets. Mira Zepeda Jun 30, 2017 14:54 Fabrice Patel MD Jun 30, 2017 23:36
--- NOTE | 2017-06-30 16:07 | HHI.NPPN ---
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 I was called to see the patient because of elevated BUN and creatinine. Additional Remarks Patient is alert, with nasal cannula, not in distress, feeling better. Objective Data Data Vital Signs Date Time Temp Pulse Resp B/P (MAP) Pulse Ox O2 Delivery O2 Flow Rate FiO2 06/30/17 14:00 89 06/30/17 12:00 80 06/30/17 12:00 97.8 80 21 137/64 (88) 97 06/30/17 11:01 84 14 112/56 (74) 97 06/30/17 11:00 80 17 98 06/30/17 10:00 82 20 155/67 (96) 94 06/30/17 10:00 82 06/30/17 09:17 74 15 148/73 (98) 96 06/30/17 09:07 82 26 136/109 (118) 89 06/30/17 09:00 79 26 98 06/30/17 08:48 94 Nasal Cannula 3.00 06/30/17 08:00 81 06/30/17 08:00 98.0 81 26 126/63 (84) 88 06/30/17 07:00 73 14 133/67 (89) 100 06/30/17 06:00 76 06/30/17 04:00 98.6 69 12 145/70 (95) 98 06/30/17 04:00 69 06/30/17 02:00 73 06/30/17 00:00 98.6 74 17 141/82 (101) 98 06/30/17 00:00 74 06/29/17 22:00 69 06/29/17 20:00 90 06/29/17 20:00 98.9 90 29 143/67 (92) 92 06/29/17 19:53 97 Nasal Cannula 3.00 06/29/17 18:00 74 -: 06/30/17 0610 06/30/17 0610 Physical Exam General Appearance: No Acute Distress, Comfortable Eyes Eye Exam: Pupils Equal Throat Throat Exam: Oral Mucosa [place] & Moist Neck Neck Exam: Neck Supple Pulmonary Resp Exam: Breath Sounds Equal, No Distress, Rhonchi, Sputum, Decreased Bases Cardiology CV Exam: Regular, Normal Sinus Rhythm Gastrointestinal/Abdomen GI Exam: Soft, Non-Tender, Bowel Sounds Present Extremeties Extremities Exam: Trace Edema Neurologic Neuro Exam: Alert, Awake, Oriented Psychiatric Psych Exam: Appropriate Responses Assessment/Plan Assessment Summary: LEESA/Acute Renal Failure, Hypertension, CKD Stage IV Problem List: (1) COPD (chronic obstructive pulmonary disease) ICD Codes: J44.9 - Chronic obstructive pulmonary disease, unspecified Status: Chronic (2) Bronchitis ICD Codes: J40 - Bronchitis, not specified as acute or chronic Status: Acute (3) HTN (hypertension) ICD Codes: I10 - Essential (primary) hypertension Status: Chronic (4) Diabetes mellitus ICD Codes: E11.9 - Type 2 diabetes mellitus without complications (5) Acute respiratory failure ICD Codes: J96.00 - Acute respiratory failure, unspecified whether with hypoxia or hypercapnia (6) Severe sepsis ICD Codes: A41.9 - Sepsis, unspecified organism; R65.20 - Severe sepsis without septic shock Status: Acute (7) Acute kidney injury ICD Codes: N17.9 - Acute kidney failure, unspecified Plan Patient has been non oliguric. Has Chronic kidney disease, possibly stage 4. Now develop LEESA. K is normal, on Zosyn. ID is following. Avoid Nephrotoxins. Follow urine out put and BMP. Creatinine in now 2.0, possibly at his baseline. Advance oral intake as per GI. To start full liquid diet. Problem Qualifiers (1) Diabetes mellitus: Qualified Codes: E11.8 - Type 2 diabetes mellitus with unspecified complications (2) Acute respiratory failure: Qualified Codes: J96.02 - Acute respiratory failure with hypercapnia Bismark Woods MD Jun 30, 2017 16:07
[2017-06-30] MEDS: BISACODYL EC 5 MG TABEC PO SCH (19:55)
[2017-07-01] VITALS (14 sets, daily range): BP systolic 114–150; BP diastolic 58–88; PULSE 73–98; RESP 13–21; TEMP 98–99.3; O2SAT 93–98
[2017-07-01] MEDS: HYDROCORTISONE SOD SUCCINATE 100 MG VIAL IV PUSH SCH ×4 (01:27→20:03)
[2017-07-01] MEDS: RESP: ALBUTEROL 2.5 MG/IPRATROPIUM 0.5 MG NEB (SCH) NEB ×4 (03:15→20:41)
[2017-07-01] MEDS: INSULIN NovoLIN REGULAR SUPPLEMENTAL SCALE SQ SCH ×7 (04:00→23:51)
[2017-07-01] MEDS: CHLORHEXIDINE GLUCONATE 2 % 1 PACK (2 CLOTHS) TOP SCH (04:00)
[2017-07-01] MEDS: SODIUM BICARBONATE 8.4% INJ 75 MEQ in DEXT 5%-NACL 0.45% 1000 ML INJ 1,000 ML IV SCH ×2 (04:40→20:20)
[2017-07-01 06:16] LABS: AUTOMATED NEUTROPHIL # 4.1 TH/MM3 (1.8-7.7); BASOPHIL % 0.1 % (0.0-2.0); EOSINOPHIL % 0.1 % (0.0-4.0); HEMATOCRIT 25.3 % (39.0-51.0); HEMOGLOBIN 8.4 GM/DL (13.0-17.0); LYMPH % 8.9 % (9.0-44.0); LYMPHOCYTE # 0.4 TH/MM3 (1.0-4.8); MEAN CELL VOLUME 106.2 FL (80.0-100.0); MEAN CORPUSCULAR HEMOGLOBIN 35.4 PG (27.0-34.0); MEAN CORPUSCULAR HGB CONC 33.3 % (32.0-36.0); MEAN PLATELET VOLUME 9.7 FL (7.0-11.0); MONO % 5.7 % (0.0-8.0); MONOCYTE # 0.3 TH/MM3 (0-0.9); NEUT % 85.2 % (16.0-70.0); PLATELET COUNT 66 TH/MM3 (150-450); RED BLOOD COUNT 2.39 MIL/MM3 (4.50-5.90); RED CELL DISTRIBUTION WIDTH 14.7 % (11.6-17.2); WHITE BLOOD COUNT 4.8 TH/MM3 (4.0-11.0)
[2017-07-01 06:50] LABS: BICARBONATE 24.1 MEQ/L (21.0-32.0); CALCIUM 7.7 MG/DL (8.5-10.1); CREATININE 1.69 MG/DL (0.60-1.30)
[2017-07-01 07:50] LABS: BANDS 26 % (0-6); LYMPHOCYTES 11 % (9-44); MONOCYTES 8 % (0-8); NEUTROPHIL # MANUAL DIFF 3.9 TH/MM3 (1.8-7.7); POLYS (SEG NEUTROPHILS) 55 % (16-70)
[2017-07-01 07:51] LABS: ACANTHOCYTES OCC (NORMAL)
--- NOTE | 2017-07-01 07:55 | HHI.CCPN ---
Subjective Remarks/Hospital Course 06/24: This is an 82-year-old male. Date of admission 06/24/2017. Past medical history includes CML, COPD, coronary disease, chronic systolic heart failure ejection fraction 15-20%, history of AAA, chronic kidney disease history be, ALEJANDRA, is hiatal hernia, dyslipidemia. See past medical history. Patient presented to [address] [facility] with abdominal pain.. Patient has had subacute has right upper and lower quadrant pain that radiates to his lower back. Since June 05. Today the patient also complains of shortness of breath, diffuse abdominal pain, and one episode of vomiting. Pain is sharp and rated 10/10. Earlier today he was noted to be hypotensive during home health visit. states that he has been drinking lots of fluids but declines solid food. Home health nurse called for [facility] transport to ED. is noted be hypotensive and has received 4 L normal saline today. Lactate essentially normal. Of note patient was seen on 06/22. He was give was given morphine, Toradol, and Zofran in the ED. Abnormal laboratories including elevated CPK 2600. Creatinine is currently 4.2 which is above baseline. He has been not drinking well. CT and is/pelvis revealed diverticulosis, edematous gallbladder with some stones. HIDA scan has been ordered. Central is placed to hypotension. He has received vancomycin and piperacillin/tazobactam in the ED. 06/25: Elderly male laying in bed on nasal cannula. Levophed gtt being titrated down. HIDA scan did not show any obstruction and gall bladder well visualized. 06/26: Patient sitting up in bed on nasal cannula. Much more awake and alert today. Off Levophed. Not in any acute distress. Minimal abdominal discomfort. No nausea or vomiting. Refused NG tube last night. Has not had a BM 06/27 Patient is lying in bed in NAD. Afebrile. 06/28 No events overnight. Renal function continue to improve with Cr: 3.0 today from 3.49 06/29 Patient lying in bed in NAD. Had BM x 4 since yesterday . Renal function is improving with Cr 2.5 today from 3.0 06/30 No events overnight. KUB this morning showed less distention in small and large bowel. Cr: 2.0 this morning from 2.5. Afebrile. 07/01 No events overnight. Awake and alert. Cr: 1.69 today. Objective Vital Signs Date Time Temp Pulse Resp B/P (MAP) Pulse Ox O2 Delivery O2 Flow Rate FiO2 07/01/17 06:00 80 07/01/17 04:00 98.6 13 150/69 (96) 96 06/30/17 20:15 Nasal Cannula 3.00 Intake and Output 07/01/17 07/01/17 07/02/17 08:00 16:00 00:00 Intake Total 1447 ml Output Total 750 ml Balance 697 ml Result Diagram: 07/01/17 0545 07/01/17 0545 Other Results Laboratory Tests Test 07/01/17 05:45 White Blood Count 4.8 TH/MM3 Red Blood Count 2.39 MIL/MM3 Hemoglobin 8.4 GM/DL Hematocrit 25.3 % Mean Corpuscular Volume 106.2 FL Mean Corpuscular Hemoglobin 35.4 PG Mean Corpuscular Hemoglobin Concent 33.3 % Red Cell Distribution Width 14.7 % Platelet Count 66 TH/MM3 Mean Platelet Volume 9.7 FL Neutrophils (%) (Auto) 85.2 % Lymphocytes (%) (Auto) 8.9 % Monocytes (%) (Auto) 5.7 % Eosinophils (%) (Auto) 0.1 % Basophils (%) (Auto) 0.1 % Neutrophils # (Auto) 4.1 TH/MM3 Lymphocytes # (Auto) 0.4 TH/MM3 Monocytes # (Auto) 0.3 TH/MM3 Eosinophils # (Auto) 0.0 TH/MM3 Basophils # (Auto) 0.0 TH/MM3 CBC Comment AUTO DIFF Differential Total Cells Counted 100 Neutrophils % (Manual) 55 % Band Neutrophils % 26 % Lymphocytes % 11 % Monocytes % 8 % Neutrophils # (Manual) 3.9 TH/MM3 Differential Comment FINAL DIFF MANUAL Platelet Estimate LOW Platelet Morphology Comment NORMAL Acanthocytes OCC Blood Urea Nitrogen 43 MG/DL Creatinine 1.69 MG/DL Random Glucose 95 MG/DL Calcium Level 7.7 MG/DL Sodium Level 144 MEQ/L Potassium Level 3.4 MEQ/L Chloride Level 111 MEQ/L Carbon Dioxide Level 24.1 MEQ/L Anion Gap 9 MEQ/L Estimat Glomerular Filtration Rate 39 ML/MIN Imaging Last Impressions Abdomen X-Ray 06/30/17 0600 Signed Impressions: Service Date/Time: Friday, June 30, 2017 04:44 - CONCLUSION: Slightly decreased distention. Alli Hansen MD Chest X-Ray 06/29/17 0000 Signed Impressions: Service Date/Time: Thursday, June 29, 2017 08:22 - CONCLUSION: Mild bibasilar atelectasis. Mild compensated and unchanged cardiomegaly. Alli Hansen MD Hepatobiliary Scan Nuclear Medicine 06/25/17 0000 Signed Impressions: Service Date/Time: Sunday, June 25, 2017 10:43 - CONCLUSION: 1. No evidence for cystic duct obstruction. 2. Biliary enteric reflux. Braulio Sellers MD Abdomen/Pelvis CT 06/24/17 1856 Signed Impressions: Service Date/Time: Saturday, June 24, 2017 19:29 - CONCLUSION: 1. Colonic diverticulosis. Significant inflammatory change is not seen. 2. Distended gallbladder with suspected tiny stones. Definite inflammatory change around the gallbladder is not seen on this CT examination. 3. 3.9 cm abdominal aortic aneurysm. This was present previously. Alli Schroeder MD Objective Remarks GENERAL: This is a 82-year-old male, laying in bed on nasal cannula SKIN: Warm and dry. No rash HEAD: Atraumatic. Normocephalic. EYES: Pupils equal and round. No scleral icterus. No injection or drainage. ENT: No nasal bleeding or discharge. Mucous membranes pink and moist. NECK: Trachea midline. No JVD. CARDIOVASCULAR: Regular rate and rhythm. S1, S2 no S4. Currently without murmur RESPIRATORY: Few crackles. Breath sounds equal bilaterally. GASTROINTESTINAL: Abdomen soft, distended. +BS MUSCULOSKELETAL: +1 edema. No obvious deformities. NEUROLOGICAL: Awake and alert. No obvious cranial nerve deficits. Normal speech. A/P Assessment and Plan Neuro/Psych: Chronic methadone use History of headache/migraine Cataracts Right ear deafness methadone 2.5 mg by mouth twice a day/home medication Utilize acetaminophen/[place] and morphine for pain management CV: Chronic systolic heart failure Coronary artery disease History of hypertension History of AAA - [place] History dyslipidemia Elevated CPK History of AICD - Xavier Elevated troponin Left bundle branch block Monitor HR and BP keep MAP>65mmHg Continue amiodarone 200 mg by mouth daily/home medication 06/26 2-D echo with LVEF 45-50%, trace MR and TR Mild elevated trop Likely type II demand ischemia secondary to previous hypotension and renal dysfunction. Resp: Acute respiratory insufficiency History of ALEJANDRA Currently on nasal cannula. Titrated to keep saturations greater than equal to 90% Incentive spirometry while awake. Albuterol/ipratropium aerosols every 4 hours with albuterol aerosols every 2 hours. Dyspnea GI: Abdominal pain(improved) Ileus Hiatal hernia Gastroesophageal reflux disease History diverticulosis GI is following. KUB this morning showed less bowel distention. On Clear liquid diet advance as vanita per GI. KUB 06/28: No significant interval change. Distended air-filled small bowel and scattered gas and stool in the colon again seen. KUB abdomen 06/26: Mild air distention of small bowel c/w mild ileus CT abdomen status post reveals diverticulosis without diverticulitis. Edematous gallbladder with possible stones. HIDA scan shows no obstruction to cystic duct with good visualization of gall bladder. On clear liquid diet and advance as vanita Pantoprazole for GI prophylaxis Docusate sodium 1 tablet twice a day for bowel regimen. Endo: Diabetes mellitus SSI to maintain euglycemia with Accu-Cheks every 4 hours/Novulog low regimen hydrocortisone 50 mg IV Q12 06/25 as patient is on by mouth prednisone at home chronically. Renal: Acute kidney injury in the setting of chronic kidney disease stage IIIB No hydronephrosis on CT abdomen/pelvis Strict intake output, monitor and replete electrolytes, follow BUN/creatinine. Avoid nephrotoxic drugs Renal function is improving with Cr:1.69 today from 2.0 IVF D5W 1/2NS+ 75meq bicarb@75ml/hr. Renal is following- Dr. 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 Dr. Liu is following for CML. Hep ab negative. ID: Sepsis Off abx ( Zosyn d/c 06/27) monitor for signs of infections ( Fever, WBC) BC, urine cx 06/24: NGTD MSK: Right hip osteoarthritis PT evaluate and treat Access - Peripheral IV's Prophylaxis - GI - pantoprazole - DVT - SCD/ Will sign off and transfer care to [facility] level 2 Carlito Lan MD Jul 01, 2017 07:55
[2017-07-01] MEDS ORDERED: POTASSIUM CHLOR 20 MEQ PREMIX 100 ML IV ONE (08:00)
[2017-07-01] MEDS: AMIODARONE 200 MG TAB PO SCH (08:23)
[2017-07-01] MEDS: PANTOPRAZOLE SOD 40 MG DELAYED RELEASE TAB PO SCH (08:23)
[2017-07-01] MEDS: METHADONE HCL 10 MG/10 ML ORAL SOLUTION PO SCH ×2 (08:23→20:03)
[2017-07-01] MEDS: DOCUSATE SODIUM 50 MG/SENNA 8.6 MG TAB PO SCH ×2 (08:23→19:49)
[2017-07-01] MEDS: LACTULOSE SYRUP 20 GM/30 ML CUP PO SCH (08:24)
[2017-07-01] MEDS: SENNOSIDES SYRUP 8.8 MG/5 ML CUP PO SCH (08:24)
[2017-07-01] MEDS: SODIUM CHLORIDE 0.9% FLUSH 10 ML FLUSH IV FLUSH SCH ×3 (09:00→20:02)
--- NOTE | 2017-07-01 09:03 | HHI.NPPN ---
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 I was called to see the patient because of elevated BUN and creatinine. Additional Remarks Patient is alert, with nasal cannula,breathing is better, eating well, no abd. pain. Objective Data Data Vital Signs Date Time Temp Pulse Resp B/P (MAP) Pulse Ox O2 Delivery O2 Flow Rate FiO2 07/01/17 08:00 98.8 76 16 125/59 (81) 98 07/01/17 08:00 80 07/01/17 07:53 98.6 85 16 117/58 (77) 98 07/01/17 06:00 80 07/01/17 04:00 98.6 78 13 150/69 (96) 96 07/01/17 04:00 78 07/01/17 02:00 73 07/01/17 00:00 98.3 78 19 137/68 (91) 98 07/01/17 00:00 78 06/30/17 22:00 91 06/30/17 20:15 95 Nasal Cannula 3.00 06/30/17 20:00 76 06/30/17 20:00 98.3 76 16 108/55 (72) 98 06/30/17 18:00 89 06/30/17 17:01 93 26 124/70 (88) 80 06/30/17 17:00 98 26 88 06/30/17 16:00 98.1 103 26 120/73 (89) 93 06/30/17 16:00 103 06/30/17 15:00 77 19 109/58 (75) 98 06/30/17 14:00 89 06/30/17 14:00 89 15 136/67 (90) 94 06/30/17 13:00 76 15 115/61 (79) 98 06/30/17 12:00 80 06/30/17 12:00 97.8 80 21 137/64 (88) 97 06/30/17 11:01 84 14 112/56 (74) 97 06/30/17 11:00 80 17 98 06/30/17 10:00 82 20 155/67 (96) 94 06/30/17 10:00 82 11/20/17 09:17 74 15 148/73 (98) 96 06/30/17 09:07 82 26 136/109 (118) 89 -: 07/01/17 0545 07/01/17 0545 Physical Exam General Appearance: No Acute Distress, Comfortable Eyes Eye Exam: Pupils Equal Throat Throat Exam: Oral Mucosa [place] & Moist Neck Neck Exam: Neck Supple Pulmonary Resp Exam: Breath Sounds Equal, No Distress, Rhonchi, Sputum, Decreased Bases Cardiology CV Exam: Regular, Normal Sinus Rhythm Gastrointestinal/Abdomen GI Exam: Soft, Non-Tender, Bowel Sounds Present Extremeties Extremities Exam: Trace Edema Neurologic Neuro Exam: Alert, Awake, Oriented Psychiatric Psych Exam: Appropriate Responses Assessment/Plan Assessment Summary: LEESA/Acute Renal Failure, Hypertension, CKD Stage IV Problem List: (1) COPD (chronic obstructive pulmonary disease) ICD Codes: J44.9 - Chronic obstructive pulmonary disease, unspecified Status: Chronic (2) Bronchitis ICD Codes: J40 - Bronchitis, not specified as acute or chronic Status: Acute (3) HTN (hypertension) ICD Codes: I10 - Essential (primary) hypertension Status: Chronic (4) Diabetes mellitus ICD Codes: E11.9 - Type 2 diabetes mellitus without complications (5) Acute respiratory failure ICD Codes: J96.00 - Acute respiratory failure, unspecified whether with hypoxia or hypercapnia (6) Severe sepsis ICD Codes: A41.9 - Sepsis, unspecified organism; R65.20 - Severe sepsis without septic shock Status: Acute (7) Acute kidney injury ICD Codes: N17.9 - Acute kidney failure, unspecified Plan Patient has been non oliguric. Has Chronic kidney disease, possibly stage 4. Now develop LEESA. K is normal, on Zosyn. ID is following. Avoid Nephrotoxins. Follow urine out put and BMP. Creatinine continue to improve. Now it is 1.6, K is 3.1 and for replacement. Advance oral intake as per GI. Tolerating full liquid diet. Problem Qualifiers (1) Diabetes mellitus: Qualified Codes: E11.8 - Type 2 diabetes mellitus with unspecified complications (2) Acute respiratory failure: Qualified Codes: J96.02 - Acute respiratory failure with hypercapnia Bismark Woods MD Jul 01, 2017 09:03
--- NOTE | 2017-07-01 09:59 | HHI.GIFU ---
Subjective Remarks awake, mildly anxious over multiple BMs HOB elevated 60 degrees, Mild exertional dyspnea, (recieving respiratory treatments Tolerating clear and full liquid diet. Denies any nausea or vomiting afebrile (Angela Zaidi) Objective Vitals I&O Vital Signs Date Time Temp Pulse Resp B/P (MAP) Pulse Ox O2 Delivery O2 Flow Rate FiO2 07/01/17 09:04 96 Nasal Cannula 3.00 07/01/17 08:00 98.8 76 16 125/59 (81) 98 07/01/17 08:00 80 07/01/17 07:53 98.6 85 16 117/58 (77) 98 07/01/17 06:00 80 07/01/17 04:00 98.6 78 13 150/69 (96) 96 07/01/17 04:00 78 07/01/17 02:00 73 07/01/17 00:00 98.3 78 19 137/68 (91) 98 07/01/17 00:00 78 06/30/17 22:00 91 06/30/17 20:15 95 Nasal Cannula 3.00 06/30/17 20:00 76 06/30/17 20:00 98.3 76 16 108/55 (72) 98 06/30/17 18:00 89 06/30/17 17:01 93 26 124/70 (88) 80 06/30/17 17:00 98 26 88 06/30/17 16:00 98.1 103 26 120/73 (89) 93 06/30/17 16:00 103 06/30/17 15:00 77 19 109/58 (75) 98 06/30/17 14:00 89 06/30/17 14:00 89 15 136/67 (90) 94 06/30/17 13:00 76 15 115/61 (79) 98 06/30/17 12:00 80 06/30/17 12:00 97.8 80 21 137/64 (88) 97 06/30/17 11:01 84 14 112/56 (74) 97 06/30/17 11:00 80 17 98 06/30/17 10:00 82 20 155/67 (96) 94 06/30/17 10:00 82 I/O 06/30/17 06/30/17 06/30/17 07/01/1707/01/17 11/21/17 07:00 15:00 23:00 07:00 15:00 23:00 Intake Total 2229 ml 1512 ml 1447 ml Output Total 1150 ml 900 ml 750 ml Balance 1079 ml 612 ml 697 ml Intake Oral 800 ml 640 ml 400 ml IV Total 1429 ml 872 ml 1047 ml Output Urine Total 1150 ml 900 ml 750 ml # Bowel Movements 0 3 1 Laboratory Laboratory Tests Test 07/01/17 05:45 White Blood Count 4.8 Red Blood Count 2.39 Hemoglobin 8.4 Hematocrit 25.3 Mean Corpuscular Volume 106.2 Mean Corpuscular Hemoglobin 35.4 Mean Corpuscular Hemoglobin Concent 33.3 Red Cell Distribution Width 14.7 Platelet Count 66 Mean Platelet Volume 9.7 Neutrophils (%) (Auto) 85.2 Lymphocytes (%) (Auto) 8.9 Monocytes (%) (Auto) 5.7 Eosinophils (%) (Auto) 0.1 Basophils (%) (Auto) 0.1 Neutrophils # (Auto) 4.1 Lymphocytes # (Auto) 0.4 Monocytes # (Auto) 0.3 Eosinophils # (Auto) 0.0 Basophils # (Auto) 0.0 CBC Comment AUTO DIFF Differential Total Cells Counted 100 Neutrophils % (Manual) 55 Band Neutrophils % 26 Lymphocytes % 11 Monocytes % 8 Neutrophils # (Manual) 3.9 Differential Comment FINAL DIFF MANUAL Platelet Estimate LOW Platelet Morphology Comment NORMAL Acanthocytes OCC Blood Urea Nitrogen 43 Creatinine 1.69 Random Glucose 95 Calcium Level 7.7 Sodium Level 144 Potassium Level 3.4 Chloride Level 111 Carbon Dioxide Level 24.1 Anion Gap 9 Estimat Glomerular Filtration Rate 39 Date/Time Source Procedure Growth Status 06/24/17 16:10 Blood Peripheral Aerobic Blood Culture - Final NO GROWTH IN 5 DAYS Complete 06/24/17 16:10 Blood Peripheral Anaerobic Blood Culture - Final NO GROWTH IN 5 DAYS Complete 06/24/17 15:55 Urine Catheterized Urine Urine Culture - Final NO GROWTH IN 48 HOURS. Complete Imaging Last Impressions Abdomen X-Ray 06/30/17 0600 Signed Impressions: Service Date/Time: Friday, June 30, 2017 04:44 - CONCLUSION: Slightly decreased distention. Alli Hansen MD Chest X-Ray 06/29/17 0000 Signed Impressions: Service Date/Time: Thursday, June 29, 2017 08:22 - CONCLUSION: Mild bibasilar atelectasis. Mild compensated and unchanged cardiomegaly. Alli Hansen MD Hepatobiliary Scan Nuclear Medicine 06/25/17 0000 Signed Impressions: Service Date/Time: Sunday, June 25, 2017 10:43 - CONCLUSION: 1. No evidence for cystic duct obstruction. 2. Biliary enteric reflux. Braulio Sellers MD Abdomen/Pelvis CT 06/24/17 1856 Signed Impressions: Service Date/Time: Saturday, June 24, 2017 19:29 - CONCLUSION: 1. Colonic diverticulosis. Significant inflammatory change is not seen. 2. Distended gallbladder with suspected tiny stones. Definite inflammatory change around the gallbladder is not seen on this CT examination. 3. 3.9 cm abdominal aortic aneurysm. This was present previously. Alli Schroeder MD Physical Exam HEENT:normocephalic; no jaundice, skin color pale NECK: Neck is supple, no lymphadenopathy. CHEST: clear anterior, diminished mild at bases bilaterally, no rhonchi CARDIAC: Regular rate and rhythm with no murmur gallop or rubs. ABDOMEN: soft but taut, mildly distended, nontender to light palpation; bowel sounds are present X 4 quadrants EXTREMITIES: No clubbing, cyanosis, 2+ mild weeping BLE edema. SKIN: pale, no rash; no jaundice, turgor thin, lower extremities weeping MEDICAL PHYSICS RESEARCHER: anxious; alert and oriented times three. (Angela Zaidi) Assessment and Plan Plan ASSESSMENT - ileus. Doing better today, had BM hard stool followed with loose stools, 5X total , since yesterday. KUB with mild improvement KUB 06/26 --> mild ileus. KUB 06/27 --> no significant interval change, mild improvement . Stools X 5 yesterday with first stool hard, formed. Attempting BM this pm - History of Diverticulosis, No known Diverticulitis. - GERD -Hiatal Hernia - Gallbladder DIsease with tiny visualized stones. - LEESA, CKDIII, DM, CML with leukopenia, anemia stable labs, thrombocytopenia, sepsis unclear source - negative cultures so far. PLAN - Transitioned to heart healthy, soft diet. - PPI PO now - monitor KUB and labs, medical management - monitor GI symptoms of nausea, vomiting, abd. pain, denies any pain this am. Anxious over multiple BMs, refused lactulose this am. Dosage changed from three times a tara to daily. Continue stool softeners and hs Ducolax. This pt seen by myself and Dr Bower and this note is written on his behalf (Angela Zaidi) Physician Comments Seen and examined with JOSE, illeus resolved. KUB with improvement. Continue bowel regimen. GI will sign off, reconsult as needed. THank you (Cady Bower MD) Angela Zaidi Jul 01, 2017 09:59 Ela Johnson Jul 01, 2017 16:11 Cady Bower MD Jul 01, 2017 16:25
--- NOTE | 2017-07-01 15:43 | PD.ONC.PN ---
Subjective Subjective Remarks Tmax today 99.3. Has had multiple bowel movements Tolerating solid food today Denies abdominal pain No bleeding Objective Data Date Time Temp Pulse Resp B/P (MAP) Pulse Ox O2 Delivery O2 Flow Rate FiO2 07/01/17 14:00 80 07/01/17 12:00 80 07/01/17 12:00 99.3 98 16 114/58 (76) 98 07/01/17 10:00 80 07/01/17 09:04 96 Nasal Cannula 3.00 07/01/17 08:00 98.8 76 16 125/59 (81) 98 07/01/17 08:00 80 07/01/17 07:53 98.6 85 16 117/58 (77) 98 07/01/17 06:00 80 07/01/17 04:00 98.6 78 13 150/69 (96) 96 07/01/17 04:00 78 07/01/17 02:00 73 07/01/17 00:00 98.3 78 19 137/68 (91) 98 07/01/17 00:00 78 06/30/17 22:00 91 06/30/17 20:15 95 Nasal Cannula 3.00 06/30/17 20:00 76 06/30/17 20:00 98.3 76 16 108/55 (72) 98 06/30/17 18:00 89 06/30/17 17:01 93 26 124/70 (88) 80 06/30/17 17:00 98 26 88 06/30/17 16:00 98.1 103 26 120/73 (89) 93 06/30/17 16:00 103 07/01/17 07/01/17 07/01/17 07:00 15:00 23:00 Intake Total 1447 ml 100 ml Output Total 750 ml Balance 697 ml 100 ml Result Diagram: 07/01/17 0545 07/01/17 0545 Laboratory Results Laboratory Tests Test 07/01/17 05:45 White Blood Count 4.8 TH/MM3 Red Blood Count 2.39 MIL/MM3 Hemoglobin 8.4 GM/DL Hematocrit 25.3 % Mean Corpuscular Volume 106.2 FL Mean Corpuscular Hemoglobin 35.4 PG Mean Corpuscular Hemoglobin Concent 33.3 % Red Cell Distribution Width 14.7 % Platelet Count 66 TH/MM3 Mean Platelet Volume 9.7 FL Neutrophils (%) (Auto) 85.2 % Lymphocytes (%) (Auto) 8.9 % Monocytes (%) (Auto) 5.7 % Eosinophils (%) (Auto) 0.1 % Basophils (%) (Auto) 0.1 % Neutrophils # (Auto) 4.1 TH/MM3 Lymphocytes # (Auto) 0.4 TH/MM3 Monocytes # (Auto) 0.3 TH/MM3 Eosinophils # (Auto) 0.0 TH/MM3 Basophils # (Auto) 0.0 TH/MM3 CBC Comment AUTO DIFF Differential Total Cells Counted 100 Neutrophils % (Manual) 55 % Band Neutrophils % 26 % Lymphocytes % 11 % Monocytes % 8 % Neutrophils # (Manual) 3.9 TH/MM3 Differential Comment FINAL DIFF MANUAL Platelet Estimate LOW Platelet Morphology Comment NORMAL Acanthocytes OCC Blood Urea Nitrogen 43 MG/DL Creatinine 1.69 MG/DL Random Glucose 95 MG/DL Calcium Level 7.7 MG/DL Sodium Level 144 MEQ/L Potassium Level 3.4 MEQ/L Chloride Level 111 MEQ/L Carbon Dioxide Level 24.1 MEQ/L Anion Gap 9 MEQ/L Estimat Glomerular Filtration Rate 39 ML/MIN Administered Medications Medications (Trade) Dose Ordered Sig/Sunil Route PRN Reason Start Time Stop Time Status Last Admin Dose Admin Sodium Chloride (NS Flush) 2 ml BID IV FLUSH 06/24/17 21:00 07/01/17 09:00 Chlorhexidine Gluconate (Chlorhexidine 2% Cloth) Taper DAILY@04 TOP 06/25/17 04:00 06/21/18 03:59 07/01/17 04:00 Senna/Docusate Sodium (Olesya-Colace) 1 tab BID PO 06/24/17 21:00 07/01/17 08:23 Bisacodyl (Dulcolax Supp) 10 mg DAILY PRN RECTAL SEVERE CONSITIPATION 06/24/17 20:30 06/28/17 08:31 Amiodarone HCl (Cordarone) 200 mg DAILY PO 06/25/17 09:00 07/01/17 08:23 Methadone HCl (Methadone Liq) 2.5 mg BID PO 06/24/17 21:00 07/01/17 08:23 Dextrose (D50w (Vial) Inj) 50 ml UNSCH PRN IV PUSH HYPOGLYCEMIA-SEE COMMENTS 06/24/17 20:30 06/24/17 21:15 Insulin Human Regular (NovoLIN R SUPPLEMENTAL SCALE) 1 Q4HR SQ 06/25/17 00:00 07/01/17 00:00 Sodium Chloride (NS Flush) DAILY IV FLUSH 06/25/17 09:00 07/01/17 09:00 Morphine Sulfate (Morphine Inj) 2 mg Q3H PRN IV PUSH pain 1-5 06/24/17 23:15 06/24/17 23:37 Morphine Sulfate (Morphine Inj) 4 mg Q3H PRN IV PUSH pain 6-10 06/24/17 23:15 06/28/17 01:38 Hydrocortisone Sodium Succinate (SoluCORTEF INJ) 50 mg Q6H IV PUSH 06/25/17 15:00 07/01/17 08:23 Bisacodyl (Dulcolax Ec) 10 mg HS PO 06/26/17 21:00 06/30/17 19:55 Sennosides (Senna Liq) 8.8 mg DAILY PO 06/28/17 09:00 06/30/17 08:58 Albuterol/ Ipratropium (Duoneb Neb) 1 ampule Q6HR NEB NEB 06/29/17 10:00 07/01/17 09:04 Sodium Bicarbonate 75 meq/Dextrose/ Sodium Chloride 1,075 ml @ 75 mls/hr [id number] IV 06/29/17 11:00 07/01/17 04:40 Pantoprazole Sodium (Protonix) 40 mg DAILY PO 07/01/17 09:00 07/01/17 08:23 Objective Remarks GENERAL: Chronically ill appearing male lying in bed in [facility]. SKIN: Warm and dry. Minor weeping from right lower extremity HEAD: Normocephalic. EYES: No injection or drainage. NECK: Supple, trachea midline. CARDIOVASCULAR: +S1/S2 RESPIRATORY: Anterior yates clear. Breathing unlabored. GASTROINTESTINAL: Abdomen protuberant. Nontender to palpation. EXTREMITIES: No cyanosis. Generalized edema to bilateral lower extremities NEUROLOGICAL: Awake and alert, normal speech. moving all extremities. Assessment/Plan Problem List: (1) Pancytopenia ICD Codes: D61.818 - Other pancytopenia Plan: 06/30/17: Platelet count 66k today. No bleeding noted. Monitor daily CBC. 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 I reviewed and agree with the findings presented. I attest that I had a [id number] encounter with the patient on the same day, and personally performed and documented my assessment and findings in the medical record. Denies any new complaints. Overall he thinks he's getting better Platelets are rising. 66K today Khushi Reynolds Jul 01, 2017 15:43 Fabrice Patel MD Jul 02, 2017 01:11
[2017-07-01] MEDS: BISACODYL EC 5 MG TABEC PO SCH (19:49)
[2017-07-02] VITALS (12 sets, daily range): BP systolic 111–144; BP diastolic 58–82; PULSE 83–96; RESP 18–23; TEMP 97.4–99.6; O2SAT 90–96
[2017-07-02] MEDS: INSULIN NovoLIN REGULAR SUPPLEMENTAL SCALE SQ SCH ×4 (03:09→20:29)
[2017-07-02] MEDS: HYDROCORTISONE SOD SUCCINATE 100 MG VIAL IV PUSH SCH ×2 (03:10→09:44)
[2017-07-02] MEDS: CHLORHEXIDINE GLUCONATE 2 % 1 PACK (2 CLOTHS) TOP SCH (03:11)
[2017-07-02] MEDS: RESP: ALBUTEROL 2.5 MG/IPRATROPIUM 0.5 MG NEB (SCH) NEB ×4 (04:23→21:40)
[2017-07-02 05:52] LABS: AUTOMATED NEUTROPHIL # 3.3 TH/MM3 (1.8-7.7); BASOPHIL % 0.1 % (0.0-2.0); EOSINOPHIL % 0.2 % (0.0-4.0); HEMATOCRIT 23.1 % (39.0-51.0); LYMPH % 13.1 % (9.0-44.0); LYMPHOCYTE # 0.5 TH/MM3 (1.0-4.8); MEAN CELL VOLUME 105.7 FL (80.0-100.0); MEAN CORPUSCULAR HEMOGLOBIN 36.4 PG (27.0-34.0); MEAN CORPUSCULAR HGB CONC 34.4 % (32.0-36.0); MEAN PLATELET VOLUME 9.8 FL (7.0-11.0); MONO % 5.2 % (0.0-8.0); MONOCYTE # 0.2 TH/MM3 (0-0.9); NEUT % 81.4 % (16.0-70.0); PLATELET COUNT 72 TH/MM3 (150-450); RED BLOOD COUNT 2.19 MIL/MM3 (4.50-5.90); RED CELL DISTRIBUTION WIDTH 14.8 % (11.6-17.2)
[2017-07-02 06:14] LABS: ALBUMIN 1.5 GM/DL (3.4-5.0); ALT (GPT) 68 U/L (12-78); AST (GOT) 53 U/L (15-37); BLOOD UREA NITROGEN 36 MG/DL (7-18); CALCIUM 7.8 MG/DL (8.5-10.1); CHLORIDE 110 MEQ/L (98-107); CREATININE 1.65 MG/DL (0.60-1.30); GLOMERULAR FILTRATION RATE 40 ML/MIN (>89); GLUCOSE,RANDOM 134 MG/DL (74-106); MAGNESIUM 2.4 MG/DL (1.5-2.5); PHOSPHORUS 2.4 MG/DL (2.5-4.9); SODIUM (NA) 143 MEQ/L (136-145)
[2017-07-02 06:23] LABS: ALKALINE PHOSPHATASE 42 U/L (45-117); TOTAL BILIRUBIN ADULT 0.6 MG/DL (0.2-1.0); TOTAL PROTEIN 4.9 GM/DL (6.4-8.2)
[2017-07-02] MEDS: SENNOSIDES SYRUP 8.8 MG/5 ML CUP PO SCH (09:00)
[2017-07-02] MEDS: DOCUSATE SODIUM 50 MG/SENNA 8.6 MG TAB PO SCH ×2 (09:00→20:28)
[2017-07-02] MEDS: LACTULOSE SYRUP 20 GM/30 ML CUP PO SCH (09:00)
[2017-07-02] MEDS: SODIUM CHLORIDE 0.9% FLUSH 10 ML FLUSH IV FLUSH SCH ×3 (09:00→20:29)
[2017-07-02 09:03] LABS: BANDS 37 % (0-6); LYMPHOCYTES 17 % (9-44); NEUTROPHIL # MANUAL DIFF 3.3 TH/MM3 (1.8-7.7); POLYS (SEG NEUTROPHILS) 46 % (16-70)
[2017-07-02 09:04] LABS: TOXIC GRANULATION 2+ (NORMAL); TOXIC VACUOLATION PRESENT (NONE SEEN)
[2017-07-02] MEDS: METHADONE HCL 10 MG/10 ML ORAL SOLUTION PO SCH ×2 (09:42→20:29)
[2017-07-02] MEDS: PANTOPRAZOLE SOD 40 MG DELAYED RELEASE TAB PO SCH (09:44)
[2017-07-02] MEDS: AMIODARONE 200 MG TAB PO SCH (09:45)
--- NOTE | 2017-07-02 10:37 | HHI.PR ---
Subjective Remarks Follow-up acute kidney injury. Nonoliguric. Patient has bilateral lower extremity swelling denies pain and shortness of breath. Discussed with RN and nephrology, he is fluid overloaded will discontinue IV fluids. Nephrology to consider diuresis Objective Vitals Vital Signs Date Time Temp Pulse Resp B/P (MAP) Pulse Ox O2 Delivery O2 Flow Rate FiO2 07/02/17 08:00 97.9 91 18 113/59 (77) 93 07/02/17 07:34 95 3.00 07/02/17 04:25 94 Nasal Cannula 3.00 07/02/17 04:12 Nasal Cannula 3.00 07/02/17 04:00 97.8 87 20 143/64 (90) 94 07/02/17 00:25 83 07/02/17 00:00 Nasal Cannula 3.00 07/02/17 00:00 98.0 95 23 132/82 (99) 96 07/01/17 23:40 98.0 95 21 136/88 (104) 93 07/01/17 20:41 98 Nasal Cannula 3.00 07/01/17 18:00 80 07/01/17 16:00 80 07/01/17 16:00 99.3 88 16 115/72 (86) 98 07/01/17 14:00 80 07/01/17 12:00 80 07/01/17 12:00 99.3 98 16 114/58 (76) 98 I/O 07/01/17 07/01/17 07/01/17 07/02/17 07/02/17 07/02/17 07:00 15:00 23:00 07:00 15:00 23:00 Intake Total 1447 ml 100 ml 380 ml 898 ml Output Total 750 ml 850 ml 250 ml Balance 697 ml 100 ml -470 ml 648 ml Intake Oral 400 ml 380 ml 240 ml IV Total 1047 ml 100 ml 658 ml Output Urine Total 750 ml 850 ml 250 ml # Bowel Movements 1 0 Result Diagram: 07/02/17 0505 07/02/17 0505 Imaging Last Impressions Abdomen X-Ray 06/30/17 0600 Signed Impressions: Service Date/Time: Friday, June 30, 2017 04:44 - CONCLUSION: Slightly decreased distention. Alli Hansen MD Chest X-Ray 06/29/17 0000 Signed Impressions: Service Date/Time: Thursday, June 29, 2017 08:22 - CONCLUSION: Mild bibasilar atelectasis. Mild compensated and unchanged cardiomegaly. Alli Hansen MD Hepatobiliary Scan Nuclear Medicine 06/25/17 0000 Signed Impressions: Service Date/Time: Sunday, June 25, 2017 10:43 - CONCLUSION: 1. No evidence for cystic duct obstruction. 2. Biliary enteric reflux. Braulio Sellers MD Abdomen/Pelvis CT 06/24/17 1856 Signed Impressions: Service Date/Time: Saturday, June 24, 2017 19:29 - CONCLUSION: 1. Colonic diverticulosis. Significant inflammatory change is not seen. 2. Distended gallbladder with suspected tiny stones. Definite inflammatory change around the gallbladder is not seen on this CT examination. 3. 3.9 cm abdominal aortic aneurysm. This was present previously. Alli Schroeder MD Objective Remarks GENERAL: This is a 82-year-old male, laying in bed on nasal cannula SKIN: Warm and dry. No rash CARDIOVASCULAR: Regular rate and rhythm. S1, S2 no S4. Currently without murmur RESPIRATORY: Few crackles. Breath sounds equal bilaterally. GASTROINTESTINAL: Abdomen soft, distended. +BS MUSCULOSKELETAL: +1 edema. No obvious deformities. NEUROLOGICAL: Awake and alert. No obvious cranial nerve deficits. Normal speech. A/P Problem List: (1) Diverticulosis ICD Code: K57.90 - Diverticulosis of intestine, part unspecified, without perforation or abscess without bleeding (2) ALEJANDRA (obstructive sleep apnea) ICD Code: G47.33 - Obstructive sleep apnea (adult) (pediatric) (3) Acute respiratory failure ICD Code: J96.00 - Acute respiratory failure, unspecified whether with hypoxia or hypercapnia (4) Acute kidney injury ICD Code: N17.9 - Acute kidney failure, unspecified (5) Thrombocytopenia ICD Code: D69.6 - Thrombocytopenia, unspecified (6) Macrocytic anemia ICD Code: D53.9 - Nutritional anemia, unspecified (7) Leukopenia ICD Code: D72.819 - Decreased white blood cell count, unspecified (8) Diabetes mellitus ICD Code: E11.9 - Type 2 diabetes mellitus without complications (9) Chronic systolic heart failure ICD Code: I50.22 - Chronic systolic (congestive) heart failure Assessment and Plan Chronic methadone use History of headache/migraine Cataracts Right ear deafness methadone 2.5 mg by mouth twice a day/home medication Utilize acetaminophen/[place] and morphine for pain management CV: Acute on Chronic systolic heart failure Coronary artery disease History of hypertension History of AAA - Litke History dyslipidemia Elevated CPK History of AICD - Xavier Elevated troponin Left bundle branch block Monitor HR and BP keep MAP>65mmHg Continue amiodarone 200 mg by mouth daily/home medication 06/26 2-D echo with LVEF 45-50%, trace MR and TR Mild elevated trop Likely type II demand ischemia secondary to previous hypotension and renal dysfunction. Discontinue IV hydration. Nephrology to start diuresis patient gained at least 9 kg Resp: Acute respiratory insufficiency History of ALEJANDRA Currently on nasal cannula. Titrated to keep saturations greater than equal to 90% Incentive spirometry while awake. Albuterol/ipratropium aerosols every 4 hours with albuterol aerosols every 2 hours. GI: Abdominal pain(improved) Ileus. Resolving Hiatal hernia Gastroesophageal reflux disease History diverticulosis Tolerating soft diet Pantoprazole for GI prophylaxis Docusate sodium 1 tablet twice a day for bowel regimen. Endo: Diabetes mellitus SSI to maintain euglycemia with Accu-Cheks every 4 hours/Novulog low regimen Discontinue hydrocortisone 50 mg IV Q12 and start prednisone 20 mg twice a day then taper to home dose Renal: Acute kidney injury in the setting of chronic kidney disease stage IIIB No hydronephrosis on CT abdomen/pelvis Strict intake output, monitor and replete electrolytes, follow BUN/creatinine. Avoid nephrotoxic drugs Renal function is improving Discontinue IV fluids discussed with nephrology Heme: CML since 1998 - on Imatinib 400 mg daily Leukopenia Macrocytic anemia Thrombocytopenia Follow-up on CBC and coags. Dr. Patel is following for CML. Restart Gleevec if platelet counts over 100,000 Hep ab negative. ID: Sepsis has been ruled out Off abx ( Zosyn d/c 06/27) monitor for signs of infections ( Fever, WBC) BC, urine cx 06/24: NGTD MSK: Right hip osteoarthritis PT evaluate and treat Access - Peripheral IV's Prophylaxis - GI - pantoprazole - DVT - SCD/ hold pharmacological prophylaxis secondary to thrombocytopenia Discharge Planning Rehabilitation in 1-2 days Problem Qualifiers (1) Diverticulosis: (2) Acute respiratory failure: Qualified Codes: J96.02 - Acute respiratory failure with hypercapnia (3) Leukopenia: Qualified Codes: D72.819 - Decreased white blood cell count, unspecified (4) Diabetes mellitus: Qualified Codes: E11.8 - Type 2 diabetes mellitus with unspecified complications Tommie Victoria MD Jul 02, 2017 10:37
[2017-07-02] MEDS ORDERED: METH5TAB PO (12:09)
[2017-07-02 12:55] LABS: HEMOGLOBIN A1C 6.4 % (4.3-6.0)
--- NOTE | 2017-07-02 15:07 | PD.ONC.PN ---
Subjective Subjective Remarks Afebrile Pt has just received something for pain and is lying in bed singing Marito jiang Feeling better Happy that platelets are improving Being looked at for rehab Objective Data Date Time Temp Pulse Resp B/P (MAP) Pulse Ox O2 Delivery O2 Flow Rate FiO2 07/02/17 12:00 97.7 93 18 111/58 (75) 90 07/02/17 08:05 96 07/02/17 08:00 97.9 91 18 113/59 (77) 93 07/02/17 07:34 95 3.00 07/02/17 07:00 Nasal Cannula 3.00 07/02/17 04:25 94 Nasal Cannula 3.00 07/02/17 04:12 Nasal Cannula 3.00 07/02/17 04:00 97.8 87 20 143/64 (90) 94 07/02/17 00:25 83 07/02/17 00:00 Nasal Cannula 3.00 07/02/17 00:00 98.0 95 23 132/82 (99) 96 07/01/17 23:40 98.0 95 21 136/88 (104) 93 07/01/17 20:41 98 Nasal Cannula 3.00 07/01/17 18:00 80 07/01/17 16:00 80 07/01/17 16:00 99.3 88 16 115/72 (86) 98 07/02/17 07/02/17 07/02/17 07:00 15:00 23:00 Intake Total 898 ml Output Total 250 ml Balance 648 ml Result Diagram: 07/02/17 0505 07/02/17 0505 Laboratory Results Laboratory Tests Test 07/01/17 19:48 07/02/17 05:05 Potassium Level 3.5 MEQ/L 3.7 MEQ/L White Blood Count 4.0 TH/MM3 Red Blood Count 2.19 MIL/MM3 Hemoglobin 8.0 GM/DL Hematocrit 23.1 % Mean Corpuscular Volume 105.7 FL Mean Corpuscular Hemoglobin 36.4 PG Mean Corpuscular Hemoglobin Concent 34.4 % Red Cell Distribution Width 14.8 % Platelet Count 72 TH/MM3 Mean Platelet Volume 9.8 FL Neutrophils (%) (Auto) 81.4 % Lymphocytes (%) (Auto) 13.1 % Monocytes (%) (Auto) 5.2 % Eosinophils (%) (Auto) 0.2 % Basophils (%) (Auto) 0.1 % Neutrophils # (Auto) 3.3 TH/MM3 Lymphocytes # (Auto) 0.5 TH/MM3 Monocytes # (Auto) 0.2 TH/MM3 Eosinophils # (Auto) 0.0 TH/MM3 Basophils # (Auto) 0.0 TH/MM3 CBC Comment AUTO DIFF Differential Total Cells Counted 100 Neutrophils % (Manual) 46 % Band Neutrophils % 37 % Lymphocytes % 17 % Neutrophils # (Manual) 3.3 TH/MM3 Differential Comment FINAL DIFF MANUAL Toxic Granulation 2+ Toxic Vacuolation PRESENT Platelet Estimate LOW Platelet Morphology Comment NORMAL Blood Urea Nitrogen 36 MG/DL Creatinine 1.65 MG/DL Random Glucose 134 MG/DL Total Protein 4.9 GM/DL Albumin 1.5 GM/DL Calcium Level 7.8 MG/DL Phosphorus Level 2.4 MG/DL Magnesium Level 2.4 MG/DL Alkaline Phosphatase 42 U/L Aspartate Amino Transf (AST/SGOT) 53 U/L Alanine Aminotransferase (ALT/SGPT) 68 U/L Total Bilirubin 0.6 MG/DL Sodium Level 143 MEQ/L Chloride Level 110 MEQ/L Carbon Dioxide Level 25.0 MEQ/L Anion Gap 8 MEQ/L Estimat Glomerular Filtration Rate 40 ML/MIN Free Thyroxine 1.40 NG/DL Thyroid Stimulating Hormone 3rd Gen 0.768 uIU/ML Administered Medications Medications (Trade) Dose Ordered Sig/Sunil Route PRN Reason Start Time Stop Time Status Last Admin Dose Admin Sodium Chloride (NS Flush) 2 ml BID IV FLUSH 06/24/17 21:00 07/02/17 09:45 Chlorhexidine Gluconate (Chlorhexidine 2% Cloth) Taper DAILY@04 TOP 06/25/17 04:00 06/21/18 03:59 07/01/17 04:00 Senna/Docusate Sodium (Olesya-Colace) 1 tab BID PO 06/24/17 21:00 07/01/17 08:23 Bisacodyl (Dulcolax Supp) 10 mg DAILY PRN RECTAL SEVERE CONSITIPATION 06/24/17 20:30 06/28/17 08:31 Amiodarone HCl (Cordarone) 200 mg DAILY PO 06/25/17 09:00 07/02/17 09:45 Methadone HCl (Methadone Liq) 2.5 mg BID PO 06/24/17 21:00 07/02/17 09:42 Dextrose (D50w (Vial) Inj) 50 ml UNSCH PRN IV PUSH HYPOGLYCEMIA-SEE COMMENTS 06/24/17 20:30 06/24/17 21:15 Sodium Chloride (NS Flush) DAILY IV FLUSH 06/25/17 09:00 07/01/17 09:00 Morphine Sulfate (Morphine Inj) 2 mg Q3H PRN IV PUSH pain 1-5 06/24/17 23:15 06/24/17 23:37 Morphine Sulfate (Morphine Inj) 4 mg Q3H PRN IV PUSH pain 6-10 06/24/17 23:15 06/28/17 01:38 Bisacodyl (Dulcolax Ec) 10 mg HS PO 06/26/17 21:00 06/30/17 19:55 Sennosides (Senna Liq) 8.8 mg DAILY PO 06/28/17 09:00 06/30/17 08:58 Pantoprazole Sodium (Protonix) 40 mg DAILY PO 07/01/17 09:00 07/02/17 09:44 Insulin Human Regular (NovoLIN R SUPPLEMENTAL SCALE) 1 ACHS SQ 07/02/17 12:00 07/02/17 12:17 Objective Remarks GENERAL: Chronically ill appearing male [facility]. SKIN: Warm and dry. HEAD: Normocephalic. EYES: No injection or drainage. NECK: Supple, trachea midline. CARDIOVASCULAR: +S1/S2 RESPIRATORY: Anterior yates clear. Breathing unlabored. GASTROINTESTINAL: Abdomen protuberant. Nontender to palpation. EXTREMITIES: No cyanosis. LE edema improving NEUROLOGICAL: Awake and alert, normal speech. moving all extremities. Assessment/Plan Problem List: (1) Pancytopenia ICD Codes: D61.818 - Other pancytopenia Plan: 06/30/17: Platelet count 72k today. No bleeding noted. Monitor daily CBC. Resume Gleevec once platelets are at least 100k. Followup in clinic next week if discharged. 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 I reviewed and agree with the findings presented. I attest that I had a [id number] encounter with the patient on the same day, and personally performed and documented my assessment and findings in the medical record. No more abdominal pain Abdominal distention is improving. Platelets are coming up Resume gleevec when plat are more than 100 Khushi Reynolds Jul 02, 2017 15:07 Fabrice Patel MD Jul 02, 2017 23:44
--- NOTE | 2017-07-02 18:43 | HHI.NPPN ---
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 I was called to see the patient because of elevated BUN and creatinine. Additional Remarks Patient is alert, with nasal cannula,breathing is better, eating well, has increase leg edema. Objective Data Data Vital Signs Date Time Temp Pulse Resp B/P (MAP) Pulse Ox O2 Delivery O2 Flow Rate FiO2 07/02/17 16:00 99.6 93 18 144/63 (90) 95 07/02/17 12:00 97.7 93 18 111/58 (75) 90 07/02/17 08:05 96 07/02/17 08:00 97.9 91 18 113/59 (77) 93 07/02/17 07:34 95 3.00 07/02/17 07:00 Nasal Cannula 3.00 07/02/17 04:25 94 Nasal Cannula 3.00 07/02/17 04:12 Nasal Cannula 3.00 07/02/17 04:00 97.8 87 20 143/64 (90) 94 07/02/17 00:25 83 07/02/17 00:00 Nasal Cannula 3.00 07/02/17 00:00 98.0 95 23 132/82 (99) 96 07/01/17 23:40 98.0 95 21 136/88 (104) 93 07/01/17 20:41 98 Nasal Cannula 3.00 -: 07/02/17 0505 07/02/17 0505 Physical Exam General Appearance: No Acute Distress, Comfortable Eyes Eye Exam: Pupils Equal Throat Throat Exam: Oral Mucosa Cardwell & Moist Neck Neck Exam: Neck Supple Pulmonary Resp Exam: Breath Sounds Equal, No Distress, Rhonchi, Sputum, Decreased Bases Cardiology CV Exam: Regular, Normal Sinus Rhythm Gastrointestinal/Abdomen GI Exam: Soft, Non-Tender, Bowel Sounds Present Extremeties Extremities Exam: Moderate Edema, Pitting Edema, Dependent Edema Neurologic Neuro Exam: Alert, Awake, Oriented Psychiatric Psych Exam: Appropriate Responses Assessment/Plan Assessment Summary: LEESA/Acute Renal Failure, Hypertension, CKD Stage IV Problem List: (1) COPD (chronic obstructive pulmonary disease) ICD Codes: J44.9 - Chronic obstructive pulmonary disease, unspecified Status: Chronic (2) Bronchitis ICD Codes: J40 - Bronchitis, not specified as acute or chronic Status: Acute (3) HTN (hypertension) ICD Codes: I10 - Essential (primary) hypertension Status: Chronic (4) Diabetes mellitus ICD Codes: E11.9 - Type 2 diabetes mellitus without complications (5) Acute respiratory failure ICD Codes: J96.00 - Acute respiratory failure, unspecified whether with hypoxia or hypercapnia (6) Severe sepsis ICD Codes: A41.9 - Sepsis, unspecified organism; R65.20 - Severe sepsis without septic shock Status: Acute (7) Acute kidney injury ICD Codes: N17.9 - Acute kidney failure, unspecified Plan Patient has been non oliguric. Has Chronic kidney disease, possibly stage 4. Now develop LEESA. K is normal, on Zosyn. ID is following. Avoid Nephrotoxins. Follow urine out put and BMP. Creatinine continue to improve. Now it is 1.6, K is better after replacement. Advance oral intake as per GI. IVF stopped, add Lasix IV. Follow the urine out put and BMP. Problem Qualifiers (1) Diabetes mellitus: Qualified Codes: E11.8 - Type 2 diabetes mellitus with unspecified complications (2) Acute respiratory failure: Qualified Codes: J96.02 - Acute respiratory failure with hypercapnia Bismark Woods MD Jul 02, 2017 18:43
[2017-07-02] MEDS: predniSONE 20 MG TAB PO SCH (20:28)
[2017-07-02] MEDS: BISACODYL EC 5 MG TABEC PO SCH (20:28)
[2017-07-03] VITALS (9 sets, daily range): BP systolic 108–136; BP diastolic 57–62; PULSE 74–84; RESP 18–23; TEMP 97.4–99.3; O2SAT 94–96
[2017-07-03] MEDS: CHLORHEXIDINE GLUCONATE 2 % 1 PACK (2 CLOTHS) TOP SCH ×2 (02:55→22:31)
[2017-07-03] MEDS: RESP: ALBUTEROL 2.5 MG/IPRATROPIUM 0.5 MG NEB (SCH) NEB ×4 (03:33→20:56)
[2017-07-03 07:44] LABS: BICARBONATE 24.8 MEQ/L (21.0-32.0); CALCIUM 7.7 MG/DL (8.5-10.1); CREATININE 1.78 MG/DL (0.60-1.30); MAGNESIUM 2.1 MG/DL (1.5-2.5)
[2017-07-03] MEDS: INSULIN NovoLIN REGULAR SUPPLEMENTAL SCALE SQ SCH ×4 (08:00→21:00)
[2017-07-03] MEDS: DOCUSATE SODIUM 50 MG/SENNA 8.6 MG TAB PO SCH ×3 (08:25→21:30)
[2017-07-03] MEDS: LACTULOSE SYRUP 20 GM/30 ML CUP PO SCH ×2 (08:25→12:20)
--- NOTE | 2017-07-03 08:25 | PD.ONC.PN ---
Subjective Subjective Remarks c/o abd pain when eats therwise has no pain No BM x 2 days. wants to go home/rehab Objective Data Date Time Temp Pulse Resp B/P (MAP) Pulse Ox O2 Delivery O2 Flow Rate FiO2 07/03/17 04:00 97.6 84 21 136/62 (86) 95 07/03/17 03:34 95 Nasal Cannula 3.00 07/03/17 00:00 Nasal Cannula 3.00 07/03/17 00:00 98.6 81 23 110/58 (75) 94 07/02/17 21:44 93 Nasal Cannula 3.00 07/02/17 20:05 86 07/02/17 20:00 97.4 88 20 121/58 (79) 94 07/02/17 20:00 Nasal Cannula 3.00 07/02/17 16:00 99.6 93 18 144/63 (90) 95 07/02/17 12:00 97.7 93 18 111/58 (75) 90 07/03/17 07/03/17 07/03/17 07:00 15:00 23:00 Intake Total 420 ml Output Total 750 ml Balance -330 ml Result Diagram: 07/02/17 0505 07/03/17 0617 Laboratory Results Laboratory Tests Test 07/03/17 06:17 Blood Urea Nitrogen 34 MG/DL Creatinine 1.78 MG/DL Random Glucose 139 MG/DL Calcium Level 7.7 MG/DL Magnesium Level 2.1 MG/DL Sodium Level 145 MEQ/L Potassium Level 3.8 MEQ/L Chloride Level 111 MEQ/L Carbon Dioxide Level 24.8 MEQ/L Anion Gap 9 MEQ/L Estimat Glomerular Filtration Rate 37 ML/MIN Administered Medications Medications (Trade) Dose Ordered Sig/Sunil Route PRN Reason Start Time Stop Time Status Last Admin Dose Admin Sodium Chloride (NS Flush) 2 ml BID IV FLUSH 06/24/17 21:00 07/02/17 20:29 Chlorhexidine Gluconate (Chlorhexidine 2% Cloth) Taper DAILY@04 TOP 06/25/17 04:00 06/21/18 03:59 07/01/17 04:00 Senna/Docusate Sodium (Olesya-Colace) 1 tab BID PO 06/24/17 21:00 07/02/17 20:28 Bisacodyl (Dulcolax Supp) 10 mg DAILY PRN RECTAL SEVERE CONSITIPATION 06/24/17 20:30 06/28/17 08:31 Amiodarone HCl (Cordarone) 200 mg DAILY PO 06/25/17 09:00 07/02/17 09:45 Methadone HCl (Methadone Liq) 2.5 mg BID PO 06/24/17 21:00 07/02/17 20:29 Dextrose (D50w (Vial) Inj) 50 ml UNSCH PRN IV PUSH HYPOGLYCEMIA-SEE COMMENTS 06/24/17 20:30 06/24/17 21:15 Sodium Chloride (NS Flush) DAILY IV FLUSH 06/25/17 09:00 07/01/17 09:00 Morphine Sulfate (Morphine Inj) 2 mg Q3H PRN IV PUSH pain 1-5 06/24/17 23:15 06/24/17 23:37 Morphine Sulfate (Morphine Inj) 4 mg Q3H PRN IV PUSH pain 6-10 06/24/17 23:15 06/28/17 01:38 Bisacodyl (Dulcolax Ec) 10 mg HS PO 06/26/17 21:00 07/02/17 20:28 Sennosides (Senna Liq) 8.8 mg DAILY PO 06/28/17 09:00 06/30/17 08:58 Pantoprazole Sodium (Protonix) 40 mg DAILY PO 07/01/17 09:00 07/02/17 09:44 Insulin Human Regular (NovoLIN R SUPPLEMENTAL SCALE) 1 ACHS SQ 07/02/17 12:00 07/02/17 12:17 Albuterol/ Ipratropium (Duoneb Neb) 1 ampule Q6HR NEB NEB 07/02/17 16:00 07/03/17 03:33 Prednisone (Deltasone) 20 mg BID PO 07/02/17 21:00 07/02/17 20:28 Objective Remarks GENERAL: Well-nourished, well-developed patient. SKIN: Warm and dry. HEAD: Normocephalic. EYES: No scleral icterus. No injection or drainage. NECK: Supple, trachea midline. No JVD or lymphadenopathy. LYMPHATIC: No adenopathy. CARDIOVASCULAR: Regular rate and rhythm without murmurs. RESPIRATORY: Breath sounds equal bilaterally. No accessory muscle use. GASTROINTESTINAL: Abdomen soft, non-tender, +distended. EXTREMITIES: No cyanosis, or edema. MUSCULOSKELETAL: Adequate muscle tone. NEUROLOGICAL: No obvious focal deficit. Awake, alert, and oriented x3. PSYCHIATRIC: Appropriate mood and affect; insight and judgment normal. Assessment/Plan Problem List: (1) Pancytopenia ICD Codes: D61.818 - Other pancytopenia Plan: 07/03/17 D/W pt, and son Ileus is resolving. Check CBC in Am. If Plat >100 then resume gleevec. Ok To d/c to home/rehab 07/02/17: Platelet count 72k today. No bleeding noted. Monitor daily CBC. Resume Gleevec once platelets are at least 100k. Followup in clinic next week if discharged. -- Likely due to infection -- No anticoagulation due to thrombocytopenia --HIT negative (2) Severe sepsis ICD Codes: A41.9 - Sepsis, unspecified organism; R65.20 - Severe sepsis without septic shock Status: Acute Plan: -- Had hypotension and severe abdominal pain on admission -- Blood and urine cultures show no growth - currently off all antibiotics, on observation -- Infectious disease following (3) CML (chronic myelocytic leukemia) ICD Codes: C92.10 - Chronic myeloid leukemia, BCR/ABL-positive, not having achieved remission Status: Chronic Plan: -- Was originally diagnosed in 1998 -- On Gleevec as outpatient -- Currently on hold due to pancytopenia Assessment 82 y/o male with history of CML admitted for likely sepsis; hematology consulted for pancytopenia Fabrice Patel MD Jul 03, 2017 08:25
[2017-07-03] MEDS: predniSONE 20 MG TAB PO SCH ×2 (08:26→21:34)
[2017-07-03] MEDS: PANTOPRAZOLE SOD 40 MG DELAYED RELEASE TAB PO SCH (08:26)
[2017-07-03] MEDS: SENNOSIDES SYRUP 8.8 MG/5 ML CUP PO SCH ×2 (08:26→12:20)
[2017-07-03] MEDS: AMIODARONE 200 MG TAB PO SCH (08:26)
[2017-07-03] MEDS: FUROSEMIDE 20 MG/2 ML VIAL IV PUSH SCH ×2 (08:27→17:24)
[2017-07-03] MEDS: METHADONE HCL 10 MG/10 ML ORAL SOLUTION PO SCH ×2 (08:28→21:33)
[2017-07-03] MEDS: SODIUM CHLORIDE 0.9% FLUSH 10 ML FLUSH IV FLUSH SCH ×3 (08:28→21:35)
[2017-07-03] MEDS: MORPHINE SULFATE 4 MG/ML INJ IV PUSH PRN (12:20)
--- NOTE | 2017-07-03 13:35 | HHI.NPPN ---
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 I was called to see the patient because of elevated BUN and creatinine. Additional Remarks Patient is alert, with nasal cannula,breathing is better, eating well, sitting on chair. Objective Data Data 07/03/17 07/04/17 19:00 07:00 Output Total 700 ml Balance -700 ml Output Urine Total 700 ml Vital Signs Date Time Temp Pulse Resp B/P (MAP) Pulse Ox O2 Delivery O2 Flow Rate FiO2 07/03/17 12:00 97.8 74 20 130/59 (82) 95 07/03/17 08:42 96 Nasal Cannula 3.00 07/03/17 08:00 99.3 76 20 130/59 (82) 95 07/03/17 08:00 84 07/03/17 07:00 Room Air 07/03/17 04:00 97.6 84 21 136/62 (86) 95 07/03/17 03:34 95 Nasal Cannula 3.00 07/03/17 00:00 Nasal Cannula 3.00 07/03/17 00:00 98.6 81 23 110/58 (75) 94 07/02/17 21:44 93 Nasal Cannula 3.00 07/02/17 20:05 86 07/02/17 20:00 97.4 88 20 121/58 (79) 94 07/02/17 20:00 Nasal Cannula 3.00 07/02/17 16:00 99.6 93 18 144/63 (90) 95 -: 07/02/17 0505 07/03/17 0617 Physical Exam General Appearance: No Acute Distress, Comfortable Eyes Eye Exam: Pupils Equal Throat Throat Exam: Oral Mucosa Colona & Moist Neck Neck Exam: Neck Supple Pulmonary Resp Exam: Breath Sounds Equal, No Distress, Rhonchi, Sputum, Decreased Bases Cardiology CV Exam: Regular, Normal Sinus Rhythm Gastrointestinal/Abdomen GI Exam: Soft, Non-Tender, Bowel Sounds Present Extremeties Extremities Exam: Moderate Edema, Pitting Edema, Dependent Edema Neurologic Neuro Exam: Alert, Awake, Oriented Psychiatric Psych Exam: Appropriate Responses Assessment/Plan Assessment Summary: LEESA/Acute Renal Failure, Hypertension, CKD Stage IV Problem List: (1) COPD (chronic obstructive pulmonary disease) ICD Codes: J44.9 - Chronic obstructive pulmonary disease, unspecified Status: Chronic (2) Bronchitis ICD Codes: J40 - Bronchitis, not specified as acute or chronic Status: Acute (3) HTN (hypertension) ICD Codes: I10 - Essential (primary) hypertension Status: Chronic (4) Diabetes mellitus ICD Codes: E11.9 - Type 2 diabetes mellitus without complications (5) Acute respiratory failure ICD Codes: J96.00 - Acute respiratory failure, unspecified whether with hypoxia or hypercapnia (6) Severe sepsis ICD Codes: A41.9 - Sepsis, unspecified organism; R65.20 - Severe sepsis without septic shock Status: Acute (7) Acute kidney injury ICD Codes: N17.9 - Acute kidney failure, unspecified Plan Patient has been non oliguric. Has Chronic kidney disease, possibly stage 3- 4. Now develop LEESA. K is normal, on Zosyn. ID is following. Avoid Nephrotoxins. Follow urine out put and BMP. Creatinine continue to improve. Now it is 1.7, K is better after replacement. Advance oral intake as per GI. IVF stopped, started on Lasix IV. Follow the urine out put and BMP. Problem Qualifiers (1) Diabetes mellitus: Qualified Codes: E11.8 - Type 2 diabetes mellitus with unspecified complications (2) Acute respiratory failure: Qualified Codes: J96.02 - Acute respiratory failure with hypercapnia Bismark Woods MD Jul 03, 2017 13:35
--- NOTE | 2017-07-03 14:17 | HHI.PR ---
Subjective Remarks Follow-up ileus. Patient states no bowel movement since the . After having breakfast complained of mild lower abdominal pain. He is not passing gas. He is also refusing laxatives. Seen with son. Discussed with RN Objective Vitals Vital Signs Date Time Temp Pulse Resp B/P (MAP) Pulse Ox O2 Delivery O2 Flow Rate FiO2 07/03/17 12:00 97.8 74 20 130/59 (82) 95 07/03/17 08:42 96 Nasal Cannula 3.00 07/03/17 08:00 99.3 76 20 130/59 (82) 95 07/03/17 08:00 84 07/03/17 07:00 Room Air 07/03/17 04:00 97.6 84 21 136/62 (86) 95 07/03/17 03:34 95 Nasal Cannula 3.00 07/03/17 00:00 Nasal Cannula 3.00 07/03/17 00:00 98.6 81 23 110/58 (75) 94 07/02/17 21:44 93 Nasal Cannula 3.00 07/02/17 20:05 86 07/02/17 20:00 97.4 88 20 121/58 (79) 94 07/02/17 20:00 Nasal Cannula 3.00 07/02/17 16:00 99.6 93 18 144/63 (90) 95 I/O 07/02/17 07/02/17 07/02/17 07/03/17 07/03/17 07/03/17 07:00 15:00 23:00 07:00 15:00 23:00 Intake Total 898 ml 420 ml Output Total 250 ml 750 ml 700 ml Balance 648 ml -330 ml -700 ml Intake Oral 240 ml 420 ml IV Total 658 ml Output Urine Total 250 ml 750 ml 700 ml # Bowel Movements 0 0 Result Diagram: 07/02/17 0505 07/03/17 0617 Imaging Last Impressions Abdomen X-Ray 06/30/17 0600 Signed Impressions: Service Date/Time: Friday, June 30, 2017 04:44 - CONCLUSION: Slightly decreased distention. Alli Hansen MD Chest X-Ray 06/29/17 0000 Signed Impressions: Service Date/Time: Thursday, June 29, 2017 08:22 - CONCLUSION: Mild bibasilar atelectasis. Mild compensated and unchanged cardiomegaly. Alli Hansen MD Hepatobiliary Scan Nuclear Medicine 06/25/17 0000 Signed Impressions: Service Date/Time: Sunday, June 25, 2017 10:43 - CONCLUSION: 1. No evidence for cystic duct obstruction. 2. Biliary enteric reflux. Braulio Sellers MD Abdomen/Pelvis CT 06/24/17 1856 Signed Impressions: Service Date/Time: Saturday, June 24, 2017 19:29 - CONCLUSION: 1. Colonic diverticulosis. Significant inflammatory change is not seen. 2. Distended gallbladder with suspected tiny stones. Definite inflammatory change around the gallbladder is not seen on this CT examination. 3. 3.9 cm abdominal aortic aneurysm. This was present previously. Alli Schroeder MD Objective Remarks GENERAL: This is a 82-year-old male, laying in bed on nasal cannula SKIN: Warm and dry. No rash CARDIOVASCULAR: Regular rate and rhythm. S1, S2 no S4. RESPIRATORY: Few crackles. Breath sounds equal bilaterally. GASTROINTESTINAL: Abdomen soft, distended. +BS MUSCULOSKELETAL: +1 edema. No obvious deformities. NEUROLOGICAL: Awake and alert. No obvious cranial nerve deficits. Normal speech. No significant change in PE from previous Procedures None A/P Problem List: (1) Diverticulosis ICD Code: K57.90 - Diverticulosis of intestine, part unspecified, without perforation or abscess without bleeding (2) ALEJANDRA (obstructive sleep apnea) ICD Code: G47.33 - Obstructive sleep apnea (adult) (pediatric) (3) Acute respiratory failure ICD Code: J96.00 - Acute respiratory failure, unspecified whether with hypoxia or hypercapnia (4) Acute kidney injury ICD Code: N17.9 - Acute kidney failure, unspecified (5) Thrombocytopenia ICD Code: D69.6 - Thrombocytopenia, unspecified (6) Macrocytic anemia ICD Code: D53.9 - Nutritional anemia, unspecified (7) Leukopenia ICD Code: D72.819 - Decreased white blood cell count, unspecified (8) Diabetes mellitus ICD Code: E11.9 - Type 2 diabetes mellitus without complications (9) Chronic systolic heart failure ICD Code: I50.22 - Chronic systolic (congestive) heart failure Assessment and Plan Chronic methadone use History of headache/migraine Cataracts Right ear deafness methadone 2.5 mg by mouth twice a day/home medication Utilize acetaminophen/[place] and morphine for pain management CV: Acute on Chronic systolic heart failure with fluid overload Coronary artery disease History of hypertension History of AAA - Litke History dyslipidemia Elevated CPK History of AICD - Xavier Elevated troponin Left bundle branch block Monitor HR and BP keep MAP>65mmHg Continue amiodarone 200 mg by mouth daily/home medication 06/26 2-D echo with LVEF 45-50%, trace MR and TR Mild elevated trop Likely type II demand ischemia secondary to previous hypotension and renal dysfunction. Discontinue IV hydration. Continue diuresis with IV Lasix Resp: Acute respiratory insufficiency History of ALEJANDRA Currently on nasal cannula. Titrated to keep saturations greater than equal to 90% Incentive spirometry while awake. Albuterol/ipratropium aerosols every 4 hours with albuterol aerosols every 2 hours. GI: Abdominal pain(improved) Ileus. Patient without bowel movement and flatus since 07/01 Hiatal hernia Gastroesophageal reflux disease History diverticulosis Tolerating soft diet Pantoprazole for GI prophylaxis Patient counseled and encouraged to use bowel regimen. We'll closely monitor Increase activity out of bed to chair and ambulate hallway Endo: Diabetes mellitus SSI to maintain euglycemia with Accu-Cheks every 4 hours/Novulog low regimen Discontinue hydrocortisone 50 mg IV Q12 a new prednisone 20 mg twice a day then taper to home dose awaiting confirmation RN to follow up Renal: Acute kidney injury in the setting of chronic kidney disease stage IIIB No hydronephrosis on CT abdomen/pelvis Strict intake output, monitor and replete electrolytes, follow BUN/creatinine. Avoid nephrotoxic drugs Renal function slightly worse. 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 Dr. Patel is following for CML. Restart Gleevec if platelet counts over 100,000 Hep ab negative. ID: Sepsis has been ruled out Off abx ( Zosyn d/c 06/27) monitor for signs of infections ( Fever, WBC) BC, urine cx 06/24: NGTD MSK: Right hip osteoarthritis PT evaluate and treat Access - Peripheral IV's Prophylaxis - GI - pantoprazole - DVT - SCD/ hold pharmacological prophylaxis secondary to thrombocytopenia Discharge Planning Not ready for discharge Problem Qualifiers (1) Diverticulosis: (2) Acute respiratory failure: Qualified Codes: J96.02 - Acute respiratory failure with hypercapnia (3) Leukopenia: Qualified Codes: D72.819 - Decreased white blood cell count, unspecified (4) Diabetes mellitus: Qualified Codes: E11.8 - Type 2 diabetes mellitus with unspecified complications Tommie Victoria MD Jul 03, 2017 14:17
[2017-07-03] MEDS: ONDANSETRON HCL 4 MG/2 ML VIAL IV PUSH PRN (17:30)
[2017-07-03] MEDS: BISACODYL EC 5 MG TABEC PO SCH (21:34)
[2017-07-04] VITALS (10 sets, daily range): BP systolic 104–120; BP diastolic 55–67; PULSE 71–90; RESP 16–20; TEMP 97.5–98.5; O2SAT 92–96
[2017-07-04] MEDS: INSULIN NovoLIN REGULAR SUPPLEMENTAL SCALE SQ SCH ×4 (08:00→21:00)
[2017-07-04] MEDS: RESP: ALBUTEROL 2.5 MG/IPRATROPIUM 0.5 MG NEB (SCH) NEB ×3 (08:26→20:31)
[2017-07-04 08:29] LABS: CALCIUM 7.7 MG/DL (8.5-10.1); CREATININE 1.88 MG/DL (0.60-1.30)
[2017-07-04] MEDS: SODIUM CHLORIDE 0.9% FLUSH 10 ML FLUSH IV FLUSH SCH ×3 (09:00→21:29)
[2017-07-04] MEDS: DOCUSATE SODIUM 50 MG/SENNA 8.6 MG TAB PO SCH ×2 (09:10→21:00)
[2017-07-04] MEDS: AMIODARONE 200 MG TAB PO SCH (09:10)
[2017-07-04] MEDS: predniSONE 20 MG TAB PO SCH ×2 (09:10→21:29)
[2017-07-04] MEDS: LACTULOSE SYRUP 20 GM/30 ML CUP PO SCH ×2 (09:10→21:00)
[2017-07-04] MEDS: PANTOPRAZOLE SOD 40 MG DELAYED RELEASE TAB PO SCH (09:10)
[2017-07-04] MEDS: SENNOSIDES SYRUP 8.8 MG/5 ML CUP PO SCH (09:10)
[2017-07-04] MEDS: FUROSEMIDE 20 MG/2 ML VIAL IV PUSH SCH ×3 (09:12→17:27)
[2017-07-04] MEDS: METHADONE HCL 10 MG/10 ML ORAL SOLUTION PO SCH ×2 (09:13→21:30)
[2017-07-04] MEDS ORDERED: METHYLNALTREXONE BROMIDE 12 MG/0.6 ML VIAL SQ ONE ×2 (10:30→10:45)
--- NOTE | 2017-07-04 10:46 | HHI.GIFU ---
Subjective Remarks Resting in bed. Did not tolerate his diet yesterday- vomited after lunch and did not eat dinner. C/O worsening distention, although passing some gas now. (Ela Johnson) Objective Vitals I&O Vital Signs Date Time Temp Pulse Resp B/P (MAP) Pulse Ox O2 Delivery O2 Flow Rate FiO2 07/04/17 09:20 Nasal Cannula 3.00 07/04/17 08:30 92 Nasal Cannula 3.00 07/04/17 08:00 98.5 71 16 113/59 (77) 96 07/04/17 04:00 97.6 75 20 109/67 (81) 96 07/04/17 00:00 98.2 82 18 107/55 (72) 95 07/03/17 20:00 Nasal Cannula 3.00 07/03/17 20:00 80 07/03/17 20:00 98.0 83 18 108/57 (74) 94 07/03/17 16:00 97.4 74 20 126/62 (83) 96 07/03/17 15:21 96 Nasal Cannula 3.00 07/03/17 12:00 97.8 74 20 130/59 (82) 95 I/O 07/03/17 07/03/17 07/03/17 07/04/17 07/04/17 07/04/17 07:00 15:00 23:00 07:00 15:00 23:00 Intake Total 420 ml 260 ml 240 ml Output Total 750 ml 700 ml 250 ml 1150 ml Balance -330 ml -440 ml -250 ml -910 ml Intake Oral 420 ml 260 ml 240 ml Output Urine Total 750 ml 700 ml 250 ml 1150 ml # Voids 1 # Bowel Movements 0 0 Laboratory Laboratory Tests Test 07/04/17 07:34 Blood Urea Nitrogen 35 Creatinine 1.88 Random Glucose 137 Calcium Level 7.7 Magnesium Level 2.0 Sodium Level 144 Potassium Level 4.7 Chloride Level 109 Carbon Dioxide Level 28.0 Anion Gap 7 Estimat Glomerular Filtration Rate 35 Date/Time Source Procedure Growth Status 06/24/17 16:10 Blood Peripheral Aerobic Blood Culture - Final NO GROWTH IN 5 DAYS Complete 06/24/17 16:10 Blood Peripheral Anaerobic Blood Culture - Final NO GROWTH IN 5 DAYS Complete 06/24/17 15:55 Urine Catheterized Urine Urine Culture - Final NO GROWTH IN 48 HOURS. Complete Imaging Last Impressions Abdomen X-Ray 06/30/17 0600 Signed Impressions: Service Date/Time: Friday, June 30, 2017 04:44 - CONCLUSION: Slightly decreased distention. Alli Hansen MD Chest X-Ray 06/29/17 0000 Signed Impressions: Service Date/Time: Thursday, June 29, 2017 08:22 - CONCLUSION: Mild bibasilar atelectasis. Mild compensated and unchanged cardiomegaly. Alli Hansen MD Hepatobiliary Scan Nuclear Medicine 06/25/17 0000 Signed Impressions: Service Date/Time: Sunday, June 25, 2017 10:43 - CONCLUSION: 1. No evidence for cystic duct obstruction. 2. Biliary enteric reflux. Braulio Sellers MD Abdomen/Pelvis CT 06/24/17 1856 Signed Impressions: Service Date/Time: Saturday, June 24, 2017 19:29 - CONCLUSION: 1. Colonic diverticulosis. Significant inflammatory change is not seen. 2. Distended gallbladder with suspected tiny stones. Definite inflammatory change around the gallbladder is not seen on this CT examination. 3. 3.9 cm abdominal aortic aneurysm. This was present previously. Alli Schroeder MD Physical Exam HEENT: Normocephalic; no jaundice, skin color pale CHEST: CTA, diminished, no rhonchi CARDIAC: RRR. ABDOMEN: Soft, distended, mild diffuse tenderness; bowel sounds are present X 4 quadrants EXTREMITIES: BLE edema, weeping. w SYSTEMS PROTECTION TECHNICIAN: Alert and oriented times three. (Ela JohnsonP) Assessment and Plan Plan ASSESSMENT - Ileus. Pt was doing better, but had worsening distention, nausea, vomiting yesterday. Last BM was on 07/01. Lactulose was increased to BID, Senna, Pericolace, Dulcolax. Of note, on Morphine and Methadone. Will give Relistor 6mg sq x 1, reduced dose for renal impairment. Encourage OOB to chair. Cont. Bowel regimen. - GERD, HH. PPI - Anemia. HH 8.0/23.1. - LEESA, Creat. 1.88. - ALEJANDRA, Resp. insuff. Improved. - DM, CHF, Hx CML with leukopenia, per attending. PLAN - [place] - Relistor 6mg sq x 1 (reduced dose for renal impairment) - Cont. Lactulose, Senna, Pericolace, Dulcolax supp - Cont. PPI - Encourage mobility - Supportive care - Further recommendations to follow based on results of above - Pt seen and examined by Dr. Bower and myself and this note is written on his behalf (Ela Johnson) Physician Comments Seen and examined with JOSE, reconsulted for recurrent illeus. Bowel regimen ordered. RElistore 6 mg x 1. Will follow. (Cady Bower MD) Ela Johnson Jul 04, 2017 10:46 Cady Bower MD Jul 04, 2017 14:22
--- NOTE | 2017-07-04 10:50 | PD.ONC.PN ---
Subjective Subjective Remarks Afebrile Feels like he needs to have a BM Declined PT today but states his son has been working with him Objective Data Date Time Temp Pulse Resp B/P (MAP) Pulse Ox O2 Delivery O2 Flow Rate FiO2 07/04/17 09:20 Nasal Cannula 3.00 07/04/17 08:30 92 Nasal Cannula 3.00 07/04/17 08:00 98.5 71 16 113/59 (77) 96 07/04/17 04:00 97.6 75 20 109/67 (81) 96 07/04/17 00:00 98.2 82 18 107/55 (72) 95 07/03/17 20:00 Nasal Cannula 3.00 07/03/17 20:00 80 07/03/17 20:00 98.0 83 18 108/57 (74) 94 07/03/17 16:00 97.4 74 20 126/62 (83) 96 07/03/17 15:21 96 Nasal Cannula 3.00 07/03/17 12:00 97.8 74 20 130/59 (82) 95 07/04/17 07/04/17 07/04/17 07:00 15:00 23:00 Intake Total 240 ml Output Total 1150 ml Balance -910 ml Result Diagram: 07/02/17 0505 07/04/17 0734 Laboratory Results Laboratory Tests Test 07/04/17 07:34 Blood Urea Nitrogen 35 MG/DL Creatinine 1.88 MG/DL Random Glucose 137 MG/DL Calcium Level 7.7 MG/DL Magnesium Level 2.0 MG/DL Sodium Level 144 MEQ/L Potassium Level 4.7 MEQ/L Chloride Level 109 MEQ/L Carbon Dioxide Level 28.0 MEQ/L Anion Gap 7 MEQ/L Estimat Glomerular Filtration Rate 35 ML/MIN Administered Medications Medications (Trade) Dose Ordered Sig/Sunil Route PRN Reason Start Time Stop Time Status Last Admin Dose Admin Sodium Chloride (NS Flush) 2 ml BID IV FLUSH 06/24/17 21:00 07/04/17 09:12 Ondansetron HCl (Zofran Inj) 4 mg Q6H PRN IV PUSH NAUSEA OR VOMITING 06/24/17 20:30 07/03/17 17:30 Chlorhexidine Gluconate (Chlorhexidine 2% Cloth) Taper DAILY@04 TOP 06/25/17 04:00 06/21/18 03:59 07/01/17 04:00 Senna/Docusate Sodium (Olesya-Colace) 1 tab BID PO 06/24/17 21:00 07/04/17 09:10 Bisacodyl (Dulcolax Supp) 10 mg DAILY PRN RECTAL SEVERE CONSITIPATION 06/24/17 20:30 06/28/17 08:31 Amiodarone HCl (Cordarone) 200 mg DAILY PO 06/25/17 09:00 07/04/17 09:10 Methadone HCl (Methadone Liq) 2.5 mg BID PO 06/24/17 21:00 07/04/17 09:13 Dextrose (D50w (Vial) Inj) 50 ml UNSCH PRN IV PUSH HYPOGLYCEMIA-SEE COMMENTS 06/24/17 20:30 06/24/17 21:15 Sodium Chloride (NS Flush) DAILY IV FLUSH 06/25/17 09:00 07/01/17 09:00 Morphine Sulfate (Morphine Inj) 2 mg Q3H PRN IV PUSH pain 1-5 06/24/17 23:15 06/24/17 23:37 Morphine Sulfate (Morphine Inj) 4 mg Q3H PRN IV PUSH pain 6-10 06/24/17 23:15 07/03/17 12:20 Bisacodyl (Dulcolax Ec) 10 mg HS PO 06/26/17 21:00 07/03/17 21:34 Sennosides (Senna Liq) 8.8 mg DAILY PO 06/28/17 09:00 07/04/17 09:10 Pantoprazole Sodium (Protonix) 40 mg DAILY PO 07/01/17 09:00 07/04/17 09:10 Insulin Human Regular (NovoLIN R SUPPLEMENTAL SCALE) 1 ACHS SQ 07/02/17 12:00 07/03/17 12:02 Albuterol/ Ipratropium (Duoneb Neb) 1 ampule Q6HR NEB NEB 07/02/17 16:00 07/04/17 08:26 Prednisone (Deltasone) 20 mg BID PO 07/02/17 21:00 07/04/17 09:10 Furosemide (Lasix Inj) 20 mg BID@,18 IV PUSH 07/03/17 09:00 07/04/17 09:12 Lactulose (Lactulose Liq) 30 ml BID PO 07/04/17 09:00 07/04/17 09:10 Objective Remarks GENERAL: Chronically ill appearing male resting in bed watching TV in no acute distress SKIN: Warm and dry. HEAD: Normocephalic. EYES: No injection or drainage. NECK: Supple, trachea midline. CARDIOVASCULAR: +S1/S2 RESPIRATORY: Anterior yates clear. Breathing unlabored. GASTROINTESTINAL: Abdomen protuberant. Nontender to palpation. EXTREMITIES: No cyanosis. LE edema improving; still has weeping from RLE. NEUROLOGICAL: Awake and alert, normal speech. moving all extremities. Assessment/Plan Problem List: (1) Pancytopenia ICD Codes: D61.818 - Other pancytopenia Plan: 07/04/17: Await CBC results today. OK for discharge from oncology standpoint. Resume Gleevec when platelets greater than 100k. Followup in clinic next week if discharged. 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 I reviewed and agree with the findings presented. I attest that I had a [id number] encounter with the patient on the same day, and personally performed and documented my assessment and findings in the medical record. no new c/o better Resume Gleevec when plat >100 sign off available prn fu as outpt Khushi Reynolds Jul 04, 2017 10:50 Fabrice Patel MD Jul 04, 2017 11:09
--- NOTE | 2017-07-04 12:28 | HHI.NPPN ---
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 I was called to see the patient because of elevated BUN and creatinine. Additional Remarks Patient is alert, with nasal cannula, has mild SOB. Objective Data Data Vital Signs Date Time Temp Pulse Resp B/P (MAP) Pulse Ox O2 Delivery O2 Flow Rate FiO2 07/04/17 12:00 97.5 89 16 120/66 (84) 93 07/04/17 09:20 Nasal Cannula 3.00 07/04/17 08:30 92 Nasal Cannula 3.00 07/04/17 08:00 98.5 71 16 113/59 (77) 96 07/04/17 04:00 97.6 75 20 109/67 (81) 96 07/04/17 00:00 98.2 82 18 107/55 (72) 95 07/03/17 20:00 Nasal Cannula 3.00 07/03/17 20:00 80 07/03/17 20:00 98.0 83 18 108/57 (74) 94 07/03/17 16:00 97.4 74 20 126/62 (83) 96 07/03/17 15:21 96 Nasal Cannula 3.00 -: 07/02/17 0505 07/04/17 0734 Physical Exam General Appearance: No Acute Distress, Comfortable Eyes Eye Exam: Pupils Equal Throat Throat Exam: Oral Mucosa [place] & Moist Neck Neck Exam: Neck Supple Pulmonary Resp Exam: Breath Sounds Equal, No Distress, Rhonchi, Sputum, Decreased Bases Cardiology CV Exam: Regular, Normal Sinus Rhythm Gastrointestinal/Abdomen GI Exam: Soft, Non-Tender, Bowel Sounds Present Extremeties Extremities Exam: Moderate Edema, Pitting Edema, Dependent Edema Neurologic Neuro Exam: Alert, Awake, Oriented Psychiatric Psych Exam: Appropriate Responses Assessment/Plan Assessment Summary: LEESA/Acute Renal Failure, Hypertension, CKD Stage IV Problem List: (1) COPD (chronic obstructive pulmonary disease) ICD Codes: J44.9 - Chronic obstructive pulmonary disease, unspecified Status: Chronic (2) Bronchitis ICD Codes: J40 - Bronchitis, not specified as acute or chronic Status: Acute (3) HTN (hypertension) ICD Codes: I10 - Essential (primary) hypertension Status: Chronic (4) Diabetes mellitus ICD Codes: E11.9 - Type 2 diabetes mellitus without complications (5) Acute respiratory failure ICD Codes: J96.00 - Acute respiratory failure, unspecified whether with hypoxia or hypercapnia (6) Severe sepsis ICD Codes: A41.9 - Sepsis, unspecified organism; R65.20 - Severe sepsis without septic shock Status: Acute (7) Acute kidney injury ICD Codes: N17.9 - Acute kidney failure, unspecified Plan Patient has been non oliguric. Has Chronic kidney disease, possibly stage 3- 4. Now develop LEESA. K is normal, on Zosyn. ID is following. Avoid Nephrotoxins. Follow urine out put and BMP. Creatinine continue to improve. Now it is 1.8, K is better after replacement. Advance oral intake as per GI. on Lasix IV, urine out put is better. Follow the urine out put and BMP. Problem Qualifiers (1) Diabetes mellitus: Qualified Codes: E11.8 - Type 2 diabetes mellitus with unspecified complications (2) Acute respiratory failure: Qualified Codes: J96.02 - Acute respiratory failure with hypercapnia Bismark Woods MD Jul 04, 2017 12:28
--- NOTE | 2017-07-04 13:02 | HHI.PR ---
Subjective Remarks Follow-up ileus. States he vomited after lunch yesterday and has not eaten since then. Today states he is slightly better with improved abdominal pain. He is passing flatus. Discussed with GI, will give Relistor patient on chronic narcotic. Patient diuresing well on IV Lasix denies shortness of breath Objective Vitals Vital Signs Date Time Temp Pulse Resp B/P (MAP) Pulse Ox O2 Delivery O2 Flow Rate FiO2 07/04/17 12:00 97.5 89 16 120/66 (84) 93 07/04/17 09:20 Nasal Cannula 3.00 07/04/17 08:30 92 Nasal Cannula 3.00 07/04/17 08:00 98.5 71 16 113/59 (77) 96 07/04/17 04:00 97.6 75 20 109/67 (81) 96 07/04/17 00:00 98.2 82 18 107/55 (72) 95 07/03/17 20:00 Nasal Cannula 3.00 07/03/17 20:00 80 07/03/17 20:00 98.0 83 18 108/57 (74) 94 07/03/17 16:00 97.4 74 20 126/62 (83) 96 07/03/17 15:21 96 Nasal Cannula 3.00 I/O 07/03/17 07/03/17 07/03/17 07/04/17 07/04/17 07/04/17 07:00 15:00 23:00 07:00 15:00 23:00 Intake Total 420 ml 260 ml 240 ml Output Total 750 ml 700 ml 250 ml 1150 ml Balance -330 ml -440 ml -250 ml -910 ml Intake Oral 420 ml 260 ml 240 ml Output Urine Total 750 ml 700 ml 250 ml 1150 ml # Voids 1 # Bowel Movements 0 0 Result Diagram: 07/02/17 0505 07/04/17 0734 Objective Remarks GENERAL: This is a 82-year-old male, laying in bed on nasal cannula SKIN: Warm and dry. No rash CARDIOVASCULAR: Regular rate and rhythm. S1, S2 no S4. RESPIRATORY: Decreased Breath sounds equal bilaterally. GASTROINTESTINAL: Abdomen soft, distended. +BS MUSCULOSKELETAL: +1 edema. No obvious deformities. NEUROLOGICAL: Awake and alert. No obvious cranial nerve deficits. Normal speech. Procedures None A/P Problem List: (1) Diverticulosis ICD Code: K57.90 - Diverticulosis of intestine, part unspecified, without perforation or abscess without bleeding (2) ALEJANDRA (obstructive sleep apnea) ICD Code: G47.33 - Obstructive sleep apnea (adult) (pediatric) (3) Acute respiratory failure ICD Code: J96.00 - Acute respiratory failure, unspecified whether with hypoxia or hypercapnia (4) Acute kidney injury ICD Code: N17.9 - Acute kidney failure, unspecified (5) Thrombocytopenia ICD Code: D69.6 - Thrombocytopenia, unspecified (6) Macrocytic anemia ICD Code: D53.9 - Nutritional anemia, unspecified (7) Leukopenia ICD Code: D72.819 - Decreased white blood cell count, unspecified (8) Diabetes mellitus ICD Code: E11.9 - Type 2 diabetes mellitus without complications (9) Chronic systolic heart failure ICD Code: I50.22 - Chronic systolic (congestive) heart failure Assessment and Plan Chronic methadone use History of headache/migraine Cataracts Right ear deafness methadone 2.5 mg by mouth twice a day/home medication Utilize acetaminophen/[place] and morphine for pain management CV: Acute on Chronic systolic heart failure with fluid overload. He is diuresing well but no significant weight loss. Coronary artery disease History of hypertension History of AAA - Litke History dyslipidemia Elevated CPK History of AICD - Xavier Elevated troponin Left bundle branch block Monitor HR and BP keep MAP>65mmHg Continue amiodarone 200 mg by mouth daily/home medication 06/26 2-D echo with LVEF 45-50%, trace MR and TR Mild elevated trop Likely type II demand ischemia secondary to previous hypotension and renal dysfunction. Discontinue IV hydration. Continue diuresis with IV Lasix Resp: Acute respiratory insufficiency History of ALEJANDRA Currently on nasal cannula. Titrated to keep saturations greater than equal to 90% Incentive spirometry while awake. Albuterol/ipratropium aerosols every 4 hours with albuterol aerosols every 2 hours. GI: Abdominal pain Ileus on narcotic. Patient without bowel movement and flatus since 07/01 Hiatal hernia Gastroesophageal reflux disease History diverticulosis Vomited yesterday. Discussed with GI, Relistor 1 Pantoprazole for GI prophylaxis Patient counseled and encouraged to use bowel regimen. Increase lactulose to 30 mg twice a day. We'll closely monitor Increase activity out of bed to chair and ambulate hallway. Patient also encouraged refused PT today Endo: Diabetes mellitus SSI to maintain euglycemia with Accu-Cheks every 4 hours/Novulog low regimen Discontinue hydrocortisone 50 mg IV Q12 a new prednisone 20 mg twice a day then taper to home dose awaiting confirmation RN to follow up Renal: Acute kidney injury in the setting of chronic kidney disease stage IIIB No hydronephrosis on CT abdomen/pelvis Strict intake output, monitor and replete electrolytes, follow BUN/creatinine. Avoid nephrotoxic drugs Renal function slightly worse but improved urine output. 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 Dr. Patel is following for CML. Restart Gleevec if platelet counts over 100,000 Hep ab negative. ID: Sepsis has been ruled out Off abx ( Zosyn d/c 06/27) monitor for signs of infections ( Fever, WBC) BC, urine cx 06/24: NGTD MSK: Right hip osteoarthritis PT evaluate and treat Access - Peripheral IV's Prophylaxis - GI - pantoprazole - DVT - SCD/ hold pharmacological prophylaxis secondary to thrombocytopenia Discharge Planning Not ready for discharge Problem Qualifiers (1) Diverticulosis: (2) Acute respiratory failure: Qualified Codes: J96.02 - Acute respiratory failure with hypercapnia (3) Leukopenia: Qualified Codes: D72.819 - Decreased white blood cell count, unspecified (4) Diabetes mellitus: Qualified Codes: E11.8 - Type 2 diabetes mellitus with unspecified complications Tommie Victoria MD Jul 04, 2017 13:02
[2017-07-04] MEDS: BISACODYL EC 5 MG TABEC PO SCH (21:00)
[2017-07-04] MEDS: CHLORHEXIDINE GLUCONATE 2 % 1 PACK (2 CLOTHS) TOP SCH (21:30)
[2017-07-05] VITALS (14 sets, daily range): BP systolic 102–124; BP diastolic 56–69; PULSE 75–99; RESP 16–22; TEMP 97.6–100.4; O2SAT 92–96
[2017-07-05] MEDS: MORPHINE SULFATE 2 MG/ML INJ IV PUSH PRN ×3 (03:42→18:44)
[2017-07-05] MEDS: RESP: ALBUTEROL 2.5 MG/IPRATROPIUM 0.5 MG NEB (SCH) NEB ×4 (04:01→21:02)
[2017-07-05] MEDS: INSULIN NovoLIN REGULAR SUPPLEMENTAL SCALE SQ SCH ×4 (08:00→21:14)
[2017-07-05 08:22] LABS: AUTOMATED NEUTROPHIL # 3.4 TH/MM3 (1.8-7.7); BASOPHIL % 0.1 % (0.0-2.0); EOSINOPHIL % 0.1 % (0.0-4.0); LYMPH % 8.7 % (9.0-44.0); LYMPHOCYTE # 0.3 TH/MM3 (1.0-4.8); MEAN CELL VOLUME 105.1 FL (80.0-100.0); MEAN CORPUSCULAR HEMOGLOBIN 36.5 PG (27.0-34.0); MEAN CORPUSCULAR HGB CONC 34.7 % (32.0-36.0); MEAN PLATELET VOLUME 9.3 FL (7.0-11.0); MONO % 5.1 % (0.0-8.0); MONOCYTE # 0.2 TH/MM3 (0-0.9); PLATELET COUNT 79 TH/MM3 (150-450); RED BLOOD COUNT 1.91 MIL/MM3 (4.50-5.90); RED CELL DISTRIBUTION WIDTH 14.7 % (11.6-17.2)
[2017-07-05 08:31] LABS: HEMATOCRIT 20.1 % (39.0-51.0)
[2017-07-05 08:33] LABS: BICARBONATE 27.3 MEQ/L (21.0-32.0); CALCIUM 7.9 MG/DL (8.5-10.1); CREATININE 1.87 MG/DL (0.60-1.30); MAGNESIUM 1.7 MG/DL (1.5-2.5)
[2017-07-05] MEDS: SODIUM CHLORIDE 0.9% FLUSH 10 ML FLUSH IV FLUSH SCH ×3 (09:00→21:00)
[2017-07-05] MEDS: METHADONE HCL 10 MG/10 ML ORAL SOLUTION PO SCH ×2 (09:31→21:12)
[2017-07-05] MEDS: predniSONE 20 MG TAB PO SCH ×2 (09:31→21:13)
[2017-07-05] MEDS: AMIODARONE 200 MG TAB PO SCH (09:31)
[2017-07-05] MEDS: DOCUSATE SODIUM 50 MG/SENNA 8.6 MG TAB PO SCH ×2 (09:31→21:13)
[2017-07-05] MEDS: PANTOPRAZOLE SOD 40 MG DELAYED RELEASE TAB PO SCH (09:31)
[2017-07-05] MEDS: LACTULOSE SYRUP 20 GM/30 ML CUP PO SCH ×2 (09:32→21:12)
[2017-07-05] MEDS: SENNOSIDES SYRUP 8.8 MG/5 ML CUP PO SCH (09:32)
[2017-07-05] MEDS: FUROSEMIDE 20 MG/2 ML VIAL IV PUSH SCH ×2 (09:32→18:00)
--- NOTE | 2017-07-05 09:40 | HHI.PR ---
Subjective Remarks Follow-up ileus. Complains of increased lower abdominal pain. He had a large bowel movement after Relistor yesterday. Since then he has not had any bowel movement or gas. Hemoglobin dropped to 7 no gross bleeding. Discussed with son and RN, nothing by mouth for now and obtain stat abdominal CT and alert GI. We'll also transfuse packed RBC patient agrees with current management. Objective Vitals Vital Signs Date Time Temp Pulse Resp B/P (MAP) Pulse Ox O2 Delivery O2 Flow Rate FiO2 07/05/17 08:00 98.3 86 20 102/59 (73) 96 07/05/17 04:02 94 Nasal Cannula 3.50 07/05/17 04:00 97.8 93 16 119/69 (86) 93 07/05/17 00:00 100.4 85 20 110/56 (74) 95 07/04/17 20:00 80 07/04/17 20:00 Nasal Cannula 3.00 07/04/17 20:00 97.8 90 20 118/55 (76) 92 07/04/17 19:05 88 07/04/17 19:04 95 Nasal Cannula 3.00 07/04/17 16:28 95 Nasal Cannula 3.00 07/04/17 16:00 98.4 79 16 104/57 (73) 94 07/04/17 12:00 97.5 89 16 120/66 (84) 93 I/O 07/04/17 07/04/17 07/04/17 07/05/17 07/05/17 07/05/17 07:00 15:00 23:00 07:00 15:00 23:00 Intake Total 240 ml 500 ml 360 ml Output Total 1150 ml 700 ml Balance -910 ml -200 ml 360 ml Intake Oral 240 ml 500 ml 360 ml Output Urine Total 1150 ml 700 ml # Voids 2 # Bowel Movements 0 2 Result Diagram: 07/05/17 0640 07/05/17 0640 Imaging Last Impressions Abdomen X-Ray 06/30/17 0600 Signed Impressions: Service Date/Time: Friday, June 30, 2017 04:44 - CONCLUSION: Slightly decreased distention. Alli Hansen MD Chest X-Ray 06/29/17 0000 Signed Impressions: Service Date/Time: Thursday, June 29, 2017 08:22 - CONCLUSION: Mild bibasilar atelectasis. Mild compensated and unchanged cardiomegaly. Alli Hansen MD Hepatobiliary Scan Nuclear Medicine 06/25/17 0000 Signed Impressions: Service Date/Time: Sunday, June 25, 2017 10:43 - CONCLUSION: 1. No evidence for cystic duct obstruction. 2. Biliary enteric reflux. Braulio Sellers MD Abdomen/Pelvis CT 06/24/17 1856 Signed Impressions: Service Date/Time: Saturday, June 24, 2017 19:29 - CONCLUSION: 1. Colonic diverticulosis. Significant inflammatory change is not seen. 2. Distended gallbladder with suspected tiny stones. Definite inflammatory change around the gallbladder is not seen on this CT examination. 3. 3.9 cm abdominal aortic aneurysm. This was present previously. Alli Schroeder MD Objective Remarks GENERAL: This is a 82-year-old male, laying in bed on nasal cannula in distress due to pain SKIN: Warm and dry. No rash CARDIOVASCULAR: Regular rate and rhythm. S1, S2 no S4. RESPIRATORY: Decreased Breath sounds equal bilaterally. GASTROINTESTINAL: Abdomen soft, distended. +BS. Tender lower quadrants MUSCULOSKELETAL: +1 edema which is improving. No obvious deformities. NEUROLOGICAL: Awake and alert. No obvious cranial nerve deficits. Normal speech. Procedures None A/P Problem List: (1) Diverticulosis ICD Code: K57.90 - Diverticulosis of intestine, part unspecified, without perforation or abscess without bleeding (2) ALEJANDRA (obstructive sleep apnea) ICD Code: G47.33 - Obstructive sleep apnea (adult) (pediatric) (3) Acute respiratory failure ICD Code: J96.00 - Acute respiratory failure, unspecified whether with hypoxia or hypercapnia (4) Acute kidney injury ICD Code: N17.9 - Acute kidney failure, unspecified (5) Thrombocytopenia ICD Code: D69.6 - Thrombocytopenia, unspecified (6) Macrocytic anemia ICD Code: D53.9 - Nutritional anemia, unspecified (7) Leukopenia ICD Code: D72.819 - Decreased white blood cell count, unspecified (8) Diabetes mellitus ICD Code: E11.9 - Type 2 diabetes mellitus without complications (9) Chronic systolic heart failure ICD Code: I50.22 - Chronic systolic (congestive) heart failure Assessment and Plan Abdominal pain. Worse today with drop in hemoglobin. Also with history of AAA Ileus on narcotic. Patient had a bowel movement yesterday after Relistor Hiatal hernia Gastroesophageal reflux disease History diverticulosis Nothing by mouth for now and obtain stat abdominal CT. Also obtain lactic acid Pantoprazole for GI prophylaxis Patient counseled and encouraged to use bowel regimen. We'll closely monitor Increase activity out of bed to chair and ambulate hallway. Refused PT today Chronic methadone use History of headache/migraine Cataracts Right ear deafness methadone 2.5 mg by mouth twice a day/home medication, will attempt to wean Utilize acetaminophen/[place] and morphine for pain management CV: Acute on Chronic systolic heart failure with fluid overload. He is diuresing well Coronary artery disease History of hypertension History of AAA - Litke History dyslipidemia Elevated CPK History of AICD - Xavier Elevated troponin Left bundle branch block Monitor HR and BP keep MAP>65mmHg Continue amiodarone 200 mg by mouth daily/home medication 06/26 2-D echo with LVEF 45-50%, trace MR and TR Mild elevated trop Likely type II demand ischemia secondary to previous hypotension and renal dysfunction. Continue diuresis with IV Lasix Resp: Acute respiratory insufficiency History of ALEJANDRA Currently on nasal cannula. Titrated to keep saturations greater than equal to 90% Incentive spirometry while awake. Albuterol/ipratropium aerosols every 4 hours with albuterol aerosols every 2 hours. Endo: Diabetes mellitus SSI to maintain euglycemia with Accu-Cheks every 4 hours/Novulog low regimen Discontinue hydrocortisone 50 mg IV Q12 a new prednisone 20 mg twice a day then taper to home dose awaiting confirmation RN to follow up Renal: Acute kidney injury in the setting of chronic kidney disease stage IIIB No hydronephrosis on CT abdomen/pelvis Strict intake output, monitor and replete electrolytes, follow BUN/creatinine. Avoid nephrotoxic drugs Renal function stable. 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 Dr. Patel is following for CML. Restart Gleevec if platelet counts over 100,000 Hep ab negative. Transfuse 2 units packed RBC to keep hemoglobin at least 8. Repeat CBC in the morning ID: Sepsis has been ruled out Low-grade fever likely related to atelectasis Off abx ( Zosyn d/c 06/27) monitor for signs of infections ( Fever, WBC) BC, urine cx 06/24: NGTD MSK: Right hip osteoarthritis PT evaluate and treat Access - Peripheral IV's Prophylaxis - GI - pantoprazole - DVT - SCD/ hold pharmacological prophylaxis secondary to thrombocytopenia Discharge Planning Not ready for discharge Problem Qualifiers (1) Diverticulosis: (2) Acute respiratory failure: Qualified Codes: J96.02 - Acute respiratory failure with hypercapnia (3) Leukopenia: Qualified Codes: D72.819 - Decreased white blood cell count, unspecified (4) Diabetes mellitus: Qualified Codes: E11.8 - Type 2 diabetes mellitus with unspecified complications Tommie Victoria MD Jul 05, 2017 09:40
[2017-07-05] MEDS ORDERED: SODIUM CHLOR 0.9% 250 ML INJ 250 ML IV ONE (10:00)
[2017-07-05] MEDS ORDERED: FUROSEMIDE 20 MG/2 ML VIAL IV PUSH ONE (10:00)
[2017-07-05] MEDS ORDERED: POTASSIUM CHLOR 20 MEQ PREMIX 100 ML IV ONE (10:00)
[2017-07-05] MEDS ORDERED: DIATRIZOATE MEGLUM/DIATRIZOATE SOD 9 ML CUP PO ONE (10:15)
[2017-07-05 11:57] LABS: BANDS 57 % (0-6); LYMPHOCYTES 5 % (9-44); METAMYELOCYTES 1 % (0-1); NEUTROPHIL # MANUAL DIFF 3.8 TH/MM3 (1.8-7.7); POLYS (SEG NEUTROPHILS) 37 % (16-70); TOXIC GRANULATION 3+ (NORMAL)
[2017-07-05 11:58] LABS: DOHLE BODIES PRESENT (NONE SEEN); TOXIC VACUOLATION PRESENT (NONE SEEN)
--- NOTE | 2017-07-05 14:51 | HHI.NPPN ---
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 I was called to see the patient because of elevated BUN and creatinine. Additional Remarks Patient is alert, with nasal cannula, has mild SOB. Objective Data Data 07/05/17 07/06/17 19:00 07:00 Intake Total 252 ml Balance 252 ml Blood Product IV Normal Saline Flush 252 ml Vital Signs Date Time Temp Pulse Resp B/P (MAP) Pulse Ox O2 Delivery O2 Flow Rate FiO2 07/05/17 12:00 97.6 84 20 113/57 (75) 93 07/05/17 09:53 92 Nasal Cannula 3.50 07/05/17 09:00 96 Nasal Cannula 3.00 07/05/17 08:00 98.3 86 20 102/59 (73) 96 07/05/17 04:02 94 Nasal Cannula 3.50 07/05/17 04:00 97.8 93 16 119/69 (86) 93 07/05/17 00:00 100.4 85 20 110/56 (74) 95 07/04/17 20:00 80 07/04/17 20:00 Nasal Cannula 3.00 07/04/17 20:00 97.8 90 20 118/55 (76) 92 07/04/17 19:05 88 07/04/17 19:04 95 Nasal Cannula 3.00 07/04/17 16:28 95 Nasal Cannula 3.00 07/04/17 16:00 98.4 79 16 104/57 (73) 94 -: 07/05/17 0640 07/05/17 0640 Physical Exam General Appearance: No Acute Distress, Comfortable Eyes Eye Exam: Pupils Equal Throat Throat Exam: Oral Mucosa [place] & Moist Neck Neck Exam: Neck Supple Pulmonary Resp Exam: Breath Sounds Equal, No Distress, Rhonchi, Sputum, Decreased Bases Cardiology CV Exam: Regular, Normal Sinus Rhythm Gastrointestinal/Abdomen GI Exam: Soft, Non-Tender, Bowel Sounds Present Extremeties Extremities Exam: Moderate Edema, Pitting Edema, Dependent Edema Neurologic Neuro Exam: Alert, Awake, Oriented Psychiatric Psych Exam: Appropriate Responses Assessment/Plan Assessment Summary: LEESA/Acute Renal Failure, Hypertension, CKD Stage IV Problem List: (1) COPD (chronic obstructive pulmonary disease) ICD Codes: J44.9 - Chronic obstructive pulmonary disease, unspecified Status: Chronic (2) Bronchitis ICD Codes: J40 - Bronchitis, not specified as acute or chronic Status: Acute (3) HTN (hypertension) ICD Codes: I10 - Essential (primary) hypertension Status: Chronic (4) Diabetes mellitus ICD Codes: E11.9 - Type 2 diabetes mellitus without complications (5) Acute respiratory failure ICD Codes: J96.00 - Acute respiratory failure, unspecified whether with hypoxia or hypercapnia (6) Severe sepsis ICD Codes: A41.9 - Sepsis, unspecified organism; R65.20 - Severe sepsis without septic shock Status: Acute (7) Acute kidney injury ICD Codes: N17.9 - Acute kidney failure, unspecified Plan Patient has been non oliguric. Has Chronic kidney disease, possibly stage 3- 4. Now develop LEESA. K is normal, on Zosyn. ID is following. Avoid Nephrotoxins. Follow urine out put and BMP. Hb [address] scan Abd to be done Cr 1.87 CKD Stage 3 GFR 35 stable Problem Qualifiers (1) Diabetes mellitus: Qualified Codes: E11.8 - Type 2 diabetes mellitus with unspecified complications (2) Acute respiratory failure: Qualified Codes: J96.02 - Acute respiratory failure with hypercapnia Basim Salmon MD Jul 05, 2017 14:51
--- NOTE | 2017-07-05 15:30 | RADRPT ---
EXAM DATE/TIME: 07/05/2017 15:06 [facility] COMPARISON: CT ABDOMEN & PELVIS W/O CONTRAST, June 24, 2017, 19:29. INDICATIONS : Abdomen pain and distention. ORAL CONTRAST: No oral contrast ingested. RADIATION DOSE: 16.91 CTDIvol (mGy) MEDICAL HISTORY : Cardiovascular disease. Hypertension. Renal calculi. SURGICAL HISTORY : Pacemaker. ENCOUNTER: Initial ACUITY: 1 day PAIN SCALE: 5/10 LOCATION: abdomen TECHNIQUE: Volumetric scanning of the abdomen and pelvis was performed. Using automated exposure control and ad justment of the mA and/or kV according to patient size, radiation dose was kept as low as reasonably achievable to obtain optimal diagnostic quality images. DICOM format image data is available electro nically for review and comparison. FINDINGS: LOWER LUNGS: There is multisegmental consolidation in the left lower lobe with air bronchograms. No pleural effus ion. LIVER: Homogeneous density without lesion for noncontrast technique. There is no dilation of the biliary tr ee. No calcified gallstones. SPLEEN: Normal size without lesion. PANCREAS: Within normal limits. KIDNEYS: Normal in size and shape. There is no mass, stone, or hydronephrosis. ADRENAL GLANDS: Within normal limits. VASCULAR: Distal common aortic aneurysm is stable in size measuring 3.8 cm. There is diffuse calcification in the wall of arterial structures in the abdomen and pelvis. BOWEL/MESENTERY: There are multiple mildly dilated loops of proximal and mid small bowel measuring up to 4.0 cm. Dist al small bowel loops are not dilated. Gas is seen throughout the colon. The appendix is identified as a normal appearance. Numerous small diverticula in the sigmoid colon stable from prior without ev idence of diverticulitis. ABDOMINAL WALL: Within normal limits. RETROPERITONEUM: There is no lymphadenopathy. BLADDER: No wall thickening or mass. REPRODUCTIVE: Within normal limits. INGUINAL: There is no lymphadenopathy or hernia. MUSCULOSKELETAL: Within normal limits for patient age. CONCLUSION: 1. Left lower lobe consolidation. 2. Dilated loops of proximal and mid small bowel. 3. Stable distal abdominal aortic aneurysm. 4. Stable sigmoid diverticulosis without evidence of diverticulitis. David Gutierrez MD on July 05, 2017 at 15:18 Board Certified Radiologist. This report was verified electronically.
[2017-07-05] MEDS: PIPERACIL-TAZO 4.5 GM PREMIX 100 ML IV SCH ×2 (18:35→23:24)
[2017-07-05] MEDS: BISACODYL EC 5 MG TABEC PO SCH (21:13)
--- NOTE | 2017-07-05 22:14 | RADRPT ---
EXAM DATE/TIME: 07/05/2017 21:56 [facility] COMPARISON: ABDOMEN KUB ONLY, June 30, 2017, 4:44. INDICATIONS : Nausea. Abdomen pain. MEDICAL HISTORY : Cardiovascular disease. Congestive heart failure. Leukemia. Diabetes. SURGICAL HISTORY : Pacemaker. ENCOUNTER: Subsequent ACUITY: 1 week PAIN SCORE: 10/10 LOCATION: Bilateral Abdomen. FINDINGS: Gaseous distended loops of small and large bowel. Small bowel loops are more distended than on prior exam, measuring up to 5.4 cm (previously measured 3.1 cm. Consolidative infiltrate in the retrocard iac left lower lung. Visualized right lower lung is clear. CONCLUSION: Increased gaseous distention of the small bowel when compared to 06/30/17. David Gutierrez MD on July 05, 2017 at 22:11 Board Certified Radiologist. This report was verified electronically.
[2017-07-05] MEDS: MORPHINE SULFATE 4 MG/ML INJ IV PUSH PRN (22:21)
[2017-07-06] VITALS (10 sets, daily range): BP systolic 117–142; BP diastolic 60–72; PULSE 76–100; RESP 20–24; TEMP 97.7–98.8; O2SAT 89–96
[2017-07-06] MEDS: MORPHINE SULFATE 4 MG/ML INJ IV PUSH PRN (02:26)
[2017-07-06 02:30] LABS: AUTOMATED NEUTROPHIL # 4.5 TH/MM3 (1.8-7.7); HEMATOCRIT 27.6 % (39.0-51.0); HEMOGLOBIN 9.6 GM/DL (13.0-17.0); LYMPH % 7.5 % (9.0-44.0); LYMPHOCYTE # 0.4 TH/MM3 (1.0-4.8); MEAN CELL VOLUME 96.2 FL (80.0-100.0); MEAN CORPUSCULAR HEMOGLOBIN 33.4 PG (27.0-34.0); MEAN CORPUSCULAR HGB CONC 34.7 % (32.0-36.0); MEAN PLATELET VOLUME 8.5 FL (7.0-11.0); MONO % 4.2 % (0.0-8.0); MONOCYTE # 0.2 TH/MM3 (0-0.9); NEUT % 88.3 % (16.0-70.0); PLATELET COUNT 89 TH/MM3 (150-450); RED BLOOD COUNT 2.87 MIL/MM3 (4.50-5.90); RED CELL DISTRIBUTION WIDTH 22.5 % (11.6-17.2); WHITE BLOOD COUNT 5.1 TH/MM3 (4.0-11.0)
[2017-07-06] MEDS: CHLORHEXIDINE GLUCONATE 2 % 1 PACK (2 CLOTHS) TOP SCH (02:39)
[2017-07-06 02:49] LABS: BICARBONATE 30.5 MEQ/L (21.0-32.0); CALCIUM 7.8 MG/DL (8.5-10.1); CREATININE 1.88 MG/DL (0.60-1.30); MAGNESIUM 1.6 MG/DL (1.5-2.5)
[2017-07-06] MEDS: RESP: ALBUTEROL 2.5 MG/IPRATROPIUM 0.5 MG NEB (SCH) NEB ×2 (03:34→09:13)
[2017-07-06 03:59] LABS: BANDS 26 % (0-6); LYMPHOCYTES 7 % (9-44); MONOCYTES 4 % (0-8); NEUTROPHIL # MANUAL DIFF 4.5 TH/MM3 (1.8-7.7); POLYS (SEG NEUTROPHILS) 63 % (16-70)
[2017-07-06 04:00] LABS: DOHLE BODIES PRESENT (NONE SEEN); OVALOCYTES 1+ (NORMAL); TOXIC GRANULATION 1+ (NORMAL)
[2017-07-06] MEDS: PIPERACIL-TAZO 4.5 GM PREMIX 100 ML IV SCH (06:05)
[2017-07-06] MEDS: INSULIN NovoLIN REGULAR SUPPLEMENTAL SCALE SQ SCH ×4 (08:00→20:59)
[2017-07-06] MEDS: SODIUM CHLORIDE 0.9% FLUSH 10 ML FLUSH IV FLUSH SCH ×3 (09:00→20:56)
[2017-07-06] MEDS: FUROSEMIDE 20 MG/2 ML VIAL IV PUSH SCH ×2 (09:55→20:56)
[2017-07-06] MEDS: predniSONE 20 MG TAB PO SCH (09:55)
[2017-07-06] MEDS: METHADONE HCL 10 MG/10 ML ORAL SOLUTION PO SCH ×2 (09:55→20:57)
[2017-07-06] MEDS: DOCUSATE SODIUM 50 MG/SENNA 8.6 MG TAB PO SCH ×2 (09:55→20:57)
[2017-07-06] MEDS: PANTOPRAZOLE SOD 40 MG DELAYED RELEASE TAB PO SCH (09:55)
[2017-07-06] MEDS: SENNOSIDES SYRUP 8.8 MG/5 ML CUP PO SCH (09:55)
[2017-07-06] MEDS: AMIODARONE 200 MG TAB PO SCH (09:55)
[2017-07-06] MEDS: LACTULOSE SYRUP 20 GM/30 ML CUP PO SCH ×2 (09:56→20:57)
--- NOTE | 2017-07-06 11:55 | HHI.PR ---
Subjective Remarks Follow-up ileus, fluid overload and pneumonia. Still having abdominal pain but no nausea. No bowel movement but passing gas. Patient refusing NGT insertion, physical therapy evaluation, out of bed and insulin administration. Discussed with son and RN Objective Vitals Vital Signs Date Time Temp Pulse Resp B/P (MAP) Pulse Ox O2 Delivery O2 Flow Rate FiO2 07/06/17 09:13 91 Nasal Cannula 5.00 07/06/17 09:00 93 Nasal Cannula 4.00 07/06/17 08:00 97.7 76 22 121/71 (88) 96 07/06/17 04:00 Nasal Cannula 4.00 07/06/17 04:00 97.8 84 20 120/63 (82) 93 07/06/17 03:35 92 Nasal Cannula 3.50 07/06/17 00:00 98.8 94 07/06/17 00:00 Nasal Cannula 4.00 07/05/17 23:26 99.2 86 20 118/65 95 07/05/17 21:07 75 07/05/17 20:00 Nasal Cannula 4.00 07/05/17 20:00 97.9 83 22 102/62 (75) 94 07/05/17 18:22 97.9 84 20 122/60 93 07/05/17 16:00 97.8 84 20 107/59 (75) 93 07/05/17 15:51 93 Nasal Cannula 3.50 07/05/17 15:15 98.2 81 20 124/60 (81) 94 07/05/17 14:45 97.6 80 20 118/62 93 07/05/17 12:00 97.6 84 20 113/57 (75) 93 I/O 07/05/17 07/05/17 07/05/17 07/06/17 07/06/17 07/06/17 07:00 15:00 23:00 07:00 15:00 23:00 Intake Total 360 ml 252 ml 1190 ml 1550 ml Output Total 875 ml 550 ml Balance 360 ml 252 ml 315 ml 1000 ml Intake Oral 360 ml 360 ml 480 ml IV Total 270 ml Packed Cells 400 ml 400 ml Blood Product IV Normal Saline Flush 252 ml 430 ml 400 ml Output Urine Total 875 ml 550 ml # Voids 2 2 # Bowel Movements 0 0 Result Diagram: 07/06/1720707/06/17207 Imaging Last Impressions Abdomen/Pelvis CT 07/05/17 0000 Signed Impressions: Service Date/Time: Wednesday, July 05, 2017 15:06 - CONCLUSION: 1. Left lower lobe consolidation. 2. Dilated loops of proximal and mid small bowel. 3. Stable distal abdominal aortic aneurysm. 4. Stable sigmoid diverticulosis without evidence of diverticulitis. David Gutierrez MD Abdomen X-Ray 07/05/17 0000 Signed Impressions: Service Date/Time: Wednesday, July 05, 2017 21:56 - CONCLUSION: Increased gaseous distention of the small bowel when compared to 06/30/17. David Gutierrez MD Chest X-Ray 06/29/17 0000 Signed Impressions: Service Date/Time: Thursday, June 29, 2017 08:22 - CONCLUSION: Mild bibasilar atelectasis. Mild compensated and unchanged cardiomegaly. Alli Hansen MD Hepatobiliary Scan Nuclear Medicine 06/25/17 0000 Signed Impressions: Service Date/Time: Sunday, June 25, 2017 10:43 - CONCLUSION: 1. No evidence for cystic duct obstruction. 2. Biliary enteric reflux. Braulio Sellers MD Objective Remarks GENERAL: This is a 82-year-old male, laying in bed on nasal cannula in distress due to pain SKIN: Warm and dry. No rash CARDIOVASCULAR: Regular rate and rhythm. S1, S2 no S4. RESPIRATORY: Decreased Breath sounds equal bilaterally. GASTROINTESTINAL: Abdomen soft, distended. +BS. Tender lower quadrants MUSCULOSKELETAL: +1 edema which is improving. No obvious deformities. NEUROLOGICAL: Awake and alert. No obvious cranial nerve deficits. Normal speech. Procedures None A/P Problem List: (1) Diverticulosis ICD Code: K57.90 - Diverticulosis of intestine, part unspecified, without perforation or abscess without bleeding (2) ALEJANDRA (obstructive sleep apnea) ICD Code: G47.33 - Obstructive sleep apnea (adult) (pediatric) (3) Acute respiratory failure ICD Code: J96.00 - Acute respiratory failure, unspecified whether with hypoxia or hypercapnia (4) Acute kidney injury ICD Code: N17.9 - Acute kidney failure, unspecified (5) Thrombocytopenia ICD Code: D69.6 - Thrombocytopenia, unspecified (6) Macrocytic anemia ICD Code: D53.9 - Nutritional anemia, unspecified (7) Leukopenia ICD Code: D72.819 - Decreased white blood cell count, unspecified (8) Diabetes mellitus ICD Code: E11.9 - Type 2 diabetes mellitus without complications (9) Chronic systolic heart failure ICD Code: I50.22 - Chronic systolic (congestive) heart failure Assessment and Plan Abdominal pain. Repeat abdominal CT and x-ray shows increased gaseous distention. Refused NGT insertion Ileus on narcotic. Consider repeat Relistor will discuss with GI Hiatal hernia Gastroesophageal reflux disease History diverticulosis Continue clear liquid diet. Advance if improving abdominal pain Pantoprazole for GI prophylaxis Patient counseled and encouraged to use bowel regimen. We'll closely monitor Increase activity out of bed to chair and ambulate hallway. Refused PT Chronic methadone use History of headache/migraine Cataracts Right ear deafness methadone 2.5 mg by mouth twice a day/home medication, will attempt to wean Utilize acetaminophen/[place] and morphine for pain management CV: Acute on Chronic systolic heart failure with fluid overload. He is diuresing and losing weight on diuretics Coronary artery disease History of hypertension History of AAA - Litke History dyslipidemia Elevated CPK History of AICD - Xavier Elevated troponin Left bundle branch block Monitor HR and BP keep MAP>65mmHg Continue amiodarone 200 mg by mouth daily/home medication 06/26 2-D echo with LVEF 45-50%, trace MR and TR Mild elevated trop Likely type II demand ischemia secondary to previous hypotension and renal dysfunction. Continue diuresis with IV Lasix Resp: Acute respiratory insufficiency History of ALEJANDRA Hospital-acquired pneumonia with worsening hypoxia Continue oxygen keep saturation at least 92%. Incentive spirometry while awake. Albuterol/ipratropium aerosols every 4 hours with albuterol aerosols every 2 hours. Endo: Diabetes mellitus SSI to maintain euglycemia with Accu-Cheks every 4 hours/Novulog low regimen Discontinue hydrocortisone 50 mg IV Q12 a new prednisone 20 mg twice a day then taper to home dose awaiting confirmation RN to follow up Renal: Acute kidney injury in the setting of chronic kidney disease stage IIIB No hydronephrosis on CT abdomen/pelvis Strict intake output, monitor and replete electrolytes, follow BUN/creatinine. Avoid nephrotoxic drugs Renal function stable. 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 Dr. Patel is following for CML. Restart Gleevec if platelet counts over 100,000 Hep ab negative. Transfused 2 units packed RBC to keep hemoglobin at least 8. Repeat CBC in the morning ID: Hospital-acquired pneumonia Continue Zosyn and follow-up culture. Sputum with gram-negative ladonna BC, urine cx 06/24: NGTD MSK: Right hip osteoarthritis PT following Access - Peripheral IV's Prophylaxis - GI - pantoprazole - DVT - SCD/ hold pharmacological prophylaxis secondary to thrombocytopenia Discharge Planning Not ready for discharge. Consult palliative care to clarify goals of care Problem Qualifiers (1) Diverticulosis: (2) Acute respiratory failure: Qualified Codes: J96.02 - Acute respiratory failure with hypercapnia (3) Leukopenia: Qualified Codes: D72.819 - Decreased white blood cell count, unspecified (4) Diabetes mellitus: Qualified Codes: E11.8 - Type 2 diabetes mellitus with unspecified complications Tommie Victoria MD Jul 06, 2017 11:55
--- NOTE | 2017-07-06 12:49 | HHI.GIFU ---
GI Follow-up Note Consult Follow-up Subjective: Patient laying in bed comfortably, no new complaints except Abdominal distension Objective: PHYSICAL EXAMINATION: Vitals signs stable No fever HEENT: Pupils round and reactive to light; normocephalic; atraumatic; no jaundice. Throat is clear. NECK: Neck is supple, no JVD, no lymphadenopathy. CHEST: Chest is clear to auscultation and percussion. CARDIAC: Regular rate and rhythm with no murmur gallop or rubs. ABDOMEN: Soft, nondistended, nontender; no hepatosplenomegaly; bowel sounds are present in all four quadrants. EXTREMITIES: No clubbing, cyanosis, or edema. SKIN: Normal; no rash; no jaundice. PICKER / PACKER: No focal deficits; alert and oriented times three. Available Data (labs, X- Rays, Procedues) : Last Impressions Abdomen/Pelvis CT 07/05/17 0000 Signed Impressions: Service Date/Time: Wednesday, July 05, 2017 15:06 - CONCLUSION: 1. Left lower lobe consolidation. 2. Dilated loops of proximal and mid small bowel. 3. Stable distal abdominal aortic aneurysm. 4. Stable sigmoid diverticulosis without evidence of diverticulitis. David Gutierrez MD Abdomen X-Ray 07/05/17 0000 Signed Impressions: Service Date/Time: Wednesday, July 05, 2017 21:56 - CONCLUSION: Increased gaseous distention of the small bowel when compared to 06/30/17. David Gutierrez MD Chest X-Ray 06/29/17 0000 Signed Impressions: Service Date/Time: Thursday, June 29, 2017 08:22 - CONCLUSION: Mild bibasilar atelectasis. Mild compensated and unchanged cardiomegaly. Alli Hansen MD Hepatobiliary Scan Nuclear Medicine 06/25/17 0000 Signed Impressions: Service Date/Time: Sunday, June 25, 2017 10:43 - CONCLUSION: 1. No evidence for cystic duct obstruction. 2. Biliary enteric reflux. Braulio Sellers MD Laboratory Tests Test 07/05/17 06:40 07/05/17 10:31 07/06/17 02:08 White Blood Count 4.0 TH/MM3 5.1 TH/MM3 Red Blood Count 1.91 MIL/MM3 2.87 MIL/MM3 Hemoglobin 7.0 GM/DL 9.6 GM/DL Hematocrit 20.1 % 27.6 % Mean Corpuscular Volume 105.1 FL 96.2 FL Mean Corpuscular Hemoglobin 36.5 PG 33.4 PG Mean Corpuscular Hemoglobin Concent 34.7 % 34.7 % Red Cell Distribution Width 14.7 % 22.5 % Platelet Count 79 TH/MM3 89 TH/MM3 Mean Platelet Volume 9.3 FL 8.5 FL Neutrophils (%) (Auto) 86.0 % 88.3 % Lymphocytes (%) (Auto) 8.7 % 7.5 % Monocytes (%) (Auto) 5.1 % 4.2 % Eosinophils (%) (Auto) 0.1 % 0.0 % Basophils (%) (Auto) 0.1 % 0.0 % Neutrophils # (Auto) 3.4 TH/MM3 4.5 TH/MM3 Lymphocytes # (Auto) 0.3 TH/MM3 0.4 TH/MM3 Monocytes # (Auto) 0.2 TH/MM3 0.2 TH/MM3 Eosinophils # (Auto) 0.0 TH/MM3 0.0 TH/MM3 Basophils # (Auto) 0.0 TH/MM3 0.0 TH/MM3 CBC Comment AUTO DIFF AUTO DIFF Differential Total Cells Counted 100 100 Neutrophils % (Manual) 37 % 63 % Band Neutrophils % 57 % 26 % Lymphocytes % 5 % 7 % Neutrophils # (Manual) 3.8 TH/MM3 4.5 TH/MM3 Metamyelocytes 1 % Differential Comment FINAL DIFF MANUAL FINAL DIFF MANUAL Toxic Granulation 3+ 1+ Toxic Vacuolation PRESENT Dohle Bodies PRESENT PRESENT Platelet Estimate LOW LOW Platelet Morphology Comment NORMAL NORMAL Blood Urea Nitrogen 32 MG/DL 32 MG/DL Creatinine 1.87 MG/DL 1.88 MG/DL Random Glucose 181 MG/DL 162 MG/DL Calcium Level 7.9 MG/DL 7.8 MG/DL Magnesium Level 1.7 MG/DL 1.6 MG/DL Sodium Level 142 MEQ/L 144 MEQ/L Potassium Level 3.5 MEQ/L 3.9 MEQ/L Chloride Level 106 MEQ/L 106 MEQ/L Carbon Dioxide Level 27.3 MEQ/L 30.5 MEQ/L Anion Gap 9 MEQ/L 8 MEQ/L Estimat Glomerular Filtration Rate 35 ML/MIN 35 ML/MIN Lactic Acid Level 1.2 mmol/L Monocytes % 4 % Ovalocytes 1+ Allergies Coded Allergies Type Severity Reaction Last Updated Verified No Known Allergies 09/19/15 Yes Active Scripts Medications Dose Route/Sig Max Daily Dose Days Date Category Dose Instructions Methadone (Methadone HCl) 5 Mg Tab 2.5 Mg PO BID 07/02/17 Rx Novolog Inj (Insulin Aspart) 1,000 Unit/10 Ml Vial 0 SQ ACHS 06/24/17 Reported Sliding Scale as directed. Prednisone 10 Mg Tab 10 Mg PO DAILY PRN 06/24/17 Reported Ferrous Sulfate 325 Mg (65 Mg Iron) Tablet 325 Mg PO BIDPC 06/24/17 Reported Senna Plus 8.6-50 mg (Sennosides-Docusate Sodium) 8.6 Mg-50 Mg Tab 1 Tab PO BID 06/10/17 Rx Proair Hfa 8.5 GM Inh (Albuterol Sulfate) 90 Mcg/Act Aer 2 Puff INH Q4-6H PRN 12/31/16 Rx 108 mcg/actuation Amiodarone (Amiodarone HCl) 200 Mg Tab 200 Mg PO DAILY 12/31/16 Reported Coreg (Carvedilol) 3.125 Mg Tab 3.125 Mg PO BID 12/31/16 Reported Aspirin 325 Mg Tab 325 Mg PO DAILY 12/31/16 Reported Glipizide 5 Mg Tab 5 Mg PO DAILY 12/31/16 Reported Take 30 minutes before a meal Lasix (Furosemide) 40 Mg Tab 40 Mg PO DAILY 12/31/16 Reported Gleevec (Imatinib Mesylate) 100 Mg Tab 400 Mg PO DAILY 12/31/16 Reported ASSESSMENT/PLAN: Seen and examined in the presence of family. CT scan findings reviewed. Pt. refused NG last night but now agreeable. Nurse to place ng to L.I.S. NPO with ivf. Repeat KUB in am. Continue bowel regimen. It was a pleasure seeing Remi Tabares. Thank you for this consult. Entered by: Cady Steve MD Jul 06, 2017 12:49
[2017-07-06] MEDS ORDERED: MAGNESIUM CITRATE SOLN 300 ML BTL PO ONE (13:15)
--- NOTE | 2017-07-06 15:29 | HHI.NPPN ---
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 I was called to see the patient because of elevated BUN and creatinine. Additional Remarks Patient is alert, with nasal cannula, has mild SOB. Objective Data Data Vital Signs Date Time Temp Pulse Resp B/P (MAP) Pulse Ox O2 Delivery O2 Flow Rate FiO2 07/06/17 13:00 98.0 100 22 117/60 (79) 92 07/06/17 09:13 91 Nasal Cannula 5.00 07/06/17 09:00 93 Nasal Cannula 4.00 07/06/17 08:00 97.7 76 22 121/71 (88) 96 07/06/17 04:00 Nasal Cannula 4.00 07/06/17 04:00 97.8 84 20 120/63 (82) 93 07/06/17 03:35 92 Nasal Cannula 3.50 07/06/17 00:00 98.8 94 07/06/17 00:00 Nasal Cannula 4.00 07/05/17 23:26 99.2 86 20 118/65 95 07/05/17 21:07 75 07/05/17 20:00 Nasal Cannula 4.00 07/05/17 20:00 97.9 83 22 102/62 (75) 94 07/05/17 18:22 97.9 84 20 122/60 93 07/05/17 16:00 97.8 84 20 107/59 (75) 93 07/05/17 15:51 93 Nasal Cannula 3.50 -: 07/06/17 0208 07/06/17 0208 Microbiology 07/06/17 Aerobic Blood Culture, Received Pending 07/06/17 Anaerobic Blood Culture, Received Pending 07/06/17 Aerobic Blood Culture, Received Pending 07/06/17 Anaerobic Blood Culture, Received Pending 07/05/17 Gram Stain - Final, Resulted 07/05/17 Sputum Culture - Preliminary, Resulted Gram Negative Rubio Physical Exam General Appearance: No Acute Distress, Comfortable Eyes Eye Exam: Pupils Equal Throat Throat Exam: Oral Mucosa [place] & Moist Neck Neck Exam: Neck Supple Pulmonary Resp Exam: Breath Sounds Equal, No Distress, Rhonchi, Sputum, Decreased Bases Cardiology CV Exam: Regular, Normal Sinus Rhythm Gastrointestinal/Abdomen GI Exam: Soft, Non-Tender, Bowel Sounds Present Extremeties Extremities Exam: Moderate Edema, Pitting Edema, Dependent Edema Neurologic Neuro Exam: Alert, Awake, Oriented Psychiatric Psych Exam: Appropriate Responses Assessment/Plan Assessment Summary: LEESA/Acute Renal Failure, Hypertension, CKD Stage IV Problem List: (1) COPD (chronic obstructive pulmonary disease) ICD Codes: J44.9 - Chronic obstructive pulmonary disease, unspecified Status: Chronic (2) Bronchitis ICD Codes: J40 - Bronchitis, not specified as acute or chronic Status: Acute (3) HTN (hypertension) ICD Codes: I10 - Essential (primary) hypertension Status: Chronic (4) Diabetes mellitus ICD Codes: E11.9 - Type 2 diabetes mellitus without complications (5) Acute respiratory failure ICD Codes: J96.00 - Acute respiratory failure, unspecified whether with hypoxia or hypercapnia (6) Severe sepsis ICD Codes: A41.9 - Sepsis, unspecified organism; R65.20 - Severe sepsis without septic shock Status: Acute (7) Acute kidney injury ICD Codes: N17.9 - Acute kidney failure, unspecified Plan Patient has been non oliguric. Has Chronic kidney disease, possibly stage 3- 4. Now develop LEESA. K is normal, on Zosyn. ID is following. CT scan showed the ileus NG tube Cr 1.88 CKD Stage [address] Woods to follow Problem Qualifiers (1) Diabetes mellitus: Qualified Codes: E11.8 - Type 2 diabetes mellitus with unspecified complications (2) Acute respiratory failure: Qualified Codes: J96.02 - Acute respiratory failure with hypercapnia Basim Salmon MD Jul 06, 2017 15:29
[2017-07-06] MEDS: RESP: ALBUTEROL 2.5 MG/IPRATROPIUM 0.5 MG NEB (PRN) INH ×2 (16:03→20:26)
--- NOTE | 2017-07-06 20:31 | HHI.PR ---
Addendum To [facility] Progress Not Reason for addendum: Additonal documentation (Received call from RN stating pt now has NG tube and is due oral medications. Held prednisone and replaced for interim Solumedrol 40 mg IV q 12 hrs. Pt to use morphine dose that is on OCT inplace of oral methadone. Per Rn, pt reporting abdominal relief with NG tube placement.) Keenan Chambers Jr. Jul 06, 2017 20:31
[2017-07-06] MEDS: PIPERACIL-TAZO 3.375 GM PREMIX 50 ML IV SCH (20:55)
[2017-07-06] MEDS: BISACODYL EC 5 MG TABEC PO SCH (20:57)
[2017-07-06] MEDS: methylPREDNISolone SOD SUCC 40 MG/1 ML VIAL IV PUSH SCH (20:57)
[2017-07-07] VITALS (11 sets, daily range): BP systolic 115–132; BP diastolic 57–63; PULSE 64–84; RESP 14–22; TEMP 97.7–99.2; O2SAT 93–95
[2017-07-07] MEDS: CHLORHEXIDINE GLUCONATE 2 % 1 PACK (2 CLOTHS) TOP SCH (02:50)
[2017-07-07] MEDS: PIPERACIL-TAZO 3.375 GM PREMIX 50 ML IV SCH ×4 (05:16→18:48)
[2017-07-07] MEDS: INSULIN NovoLIN REGULAR SUPPLEMENTAL SCALE SQ SCH ×4 (08:00→20:26)
[2017-07-07 08:27] LABS: CALCIUM 7.6 MG/DL (8.5-10.1); CREATININE 1.98 MG/DL (0.60-1.30); MAGNESIUM 1.9 MG/DL (1.5-2.5)
[2017-07-07] MEDS: AMIODARONE 200 MG TAB PO SCH (09:00)
[2017-07-07] MEDS: PANTOPRAZOLE SOD 40 MG DELAYED RELEASE TAB PO SCH (09:00)
[2017-07-07] MEDS: DOCUSATE SODIUM 50 MG/SENNA 8.6 MG TAB PO SCH ×2 (09:00→20:25)
[2017-07-07] MEDS: METHADONE HCL 10 MG/10 ML ORAL SOLUTION PO SCH ×2 (09:00→20:25)
[2017-07-07] MEDS: SENNOSIDES SYRUP 8.8 MG/5 ML CUP PO SCH (09:00)
[2017-07-07] MEDS: LACTULOSE SYRUP 20 GM/30 ML CUP PO SCH ×2 (09:00→20:25)
[2017-07-07] MEDS: SODIUM CHLORIDE 0.9% FLUSH 10 ML FLUSH IV FLUSH SCH ×3 (09:00→20:26)
--- NOTE | 2017-07-07 09:25 | HHI.PR ---
Subjective Remarks Follow-up ileus. He feels better with no abdominal pain after NGT insertion. Still on Ventimask 50%. Improved shortness of breath with less abdominal distention. Currently nothing by mouth per GI. Discussed with RN Objective Vitals Vital Signs Date Time Temp Pulse Resp B/P (MAP) Pulse Ox O2 Delivery O2 Flow Rate FiO2 07/07/17 04:00 97.9 80 22 117/59 (78) 94 07/07/17 04:00 Venturi Mask 50 07/07/17 00:00 99.2 84 19 118/63 (81) 93 07/07/17 00:00 Venturi Mask 50 07/06/17 20:49 89 Venturi Mask 50 07/06/17 20:17 79 07/06/17 20:00 98.0 85 21 142/72 (95) 95 07/06/17 20:00 Venturi Mask 50 07/06/17 16:00 98.2 90 24 126/71 (89) 91 07/06/17 13:00 98.0 100 22 117/60 (79) 92 I/O 07/06/17 07/06/17 07/06/17 07/07/17 07/07/17 07/07/17 07:00 15:00 23:00 07:00 15:00 23:00 Intake Total 1550 ml 1010 ml 100 ml Output Total 550 ml 925 ml 1050 ml Balance 1000 ml 85 ml -950 ml Intake Oral 480 ml 960 ml 0 ml IV Total 270 ml 50 ml 100 ml Packed Cells 400 ml Blood Product IV Normal Saline Flush 400 ml Output Urine Total 550 ml 925 ml 1050 ml # Bowel Movements 0 0 0 Result Diagram: 07/06/17 0208 07/07/17 0647 Imaging Last Impressions Abdomen/Pelvis CT 07/05/17 0000 Signed Impressions: Service Date/Time: Wednesday, July 05, 2017 15:06 - CONCLUSION: 1. Left lower lobe consolidation. 2. Dilated loops of proximal and mid small bowel. 3. Stable distal abdominal aortic aneurysm. 4. Stable sigmoid diverticulosis without evidence of diverticulitis. David Gutierrez MD Abdomen X-Ray 07/05/17 0000 Signed Impressions: Service Date/Time: Wednesday, July 05, 2017 21:56 - CONCLUSION: Increased gaseous distention of the small bowel when compared to 06/30/17. David Gutierrez MD Chest X-Ray 06/29/17 0000 Signed Impressions: Service Date/Time: Thursday, June 29, 2017 08:22 - CONCLUSION: Mild bibasilar atelectasis. Mild compensated and unchanged cardiomegaly. Alli Hansen MD Hepatobiliary Scan Nuclear Medicine 06/25/17 0000 Signed Impressions: Service Date/Time: Sunday, June 25, 2017 10:43 - CONCLUSION: 1. No evidence for cystic duct obstruction. 2. Biliary enteric reflux. Braulio Sellers MD Objective Remarks GENERAL: This is a 82-year-old male, laying in bed on Ventimask SKIN: Warm and dry. No rash CARDIOVASCULAR: Regular rate and rhythm. S1, S2 no S4. RESPIRATORY: Decreased Breath sounds equal bilaterally. GASTROINTESTINAL: Abdomen soft, distended. +BS. Nontender MUSCULOSKELETAL: +1 edema which is improving. No obvious deformities. NEUROLOGICAL: Awake and alert. No obvious cranial nerve deficits. Normal speech. Procedures None A/P Problem List: (1) Diverticulosis ICD Code: K57.90 - Diverticulosis of intestine, part unspecified, without perforation or abscess without bleeding (2) ALEJANDRA (obstructive sleep apnea) ICD Code: G47.33 - Obstructive sleep apnea (adult) (pediatric) (3) Acute respiratory failure ICD Code: J96.00 - Acute respiratory failure, unspecified whether with hypoxia or hypercapnia (4) Acute kidney injury ICD Code: N17.9 - Acute kidney failure, unspecified (5) Thrombocytopenia ICD Code: D69.6 - Thrombocytopenia, unspecified (6) Macrocytic anemia ICD Code: D53.9 - Nutritional anemia, unspecified (7) Leukopenia ICD Code: D72.819 - Decreased white blood cell count, unspecified (8) Diabetes mellitus ICD Code: E11.9 - Type 2 diabetes mellitus without complications (9) Chronic systolic heart failure ICD Code: I50.22 - Chronic systolic (congestive) heart failure Assessment and Plan Abdominal pain. Repeat abdominal CT and x-ray shows increased gaseous distention. Improved with NGT insertion. Remains overnight 700 cc Ileus on narcotic. Hiatal hernia Gastroesophageal reflux disease History diverticulosis Improving abdominal pain. Continue NGT to low intermittent wall suction. Keep nothing by mouth diet per GI. IV fluid as needed. Repeat abdominal x-ray in the morning. Consider Reglan Complains of odynophagia. Endoscopy per GI Pantoprazole for GI prophylaxis Patient counseled and encouraged to use bowel regimen. We'll closely monitor. May need another dose of Relistor Increase activity out of bed to chair and ambulate hallway. Refused PT, patient counseled Chronic methadone use History of headache/migraine Cataracts Right ear deafness methadone 2.5 mg by mouth twice a day/home medication, will attempt to wean Utilize acetaminophen/[place] and morphine for pain management CV: Acute on Chronic systolic heart failure with fluid overload. He is diuresing and losing weight on diuretics Coronary artery disease History of hypertension History of AAA - Litke History dyslipidemia Elevated CPK History of AICD - Xavier Elevated troponin Left bundle branch block Monitor HR and BP keep MAP>65mmHg Continue amiodarone 200 mg by mouth daily/home medication 06/26 2-D echo with LVEF 45-50%, trace MR and TR Mild elevated trop Likely type II demand ischemia secondary to previous hypotension and renal dysfunction. Continue diuresis with IV Lasix Resp: Acute respiratory failure History of ALEJANDRA Hospital-acquired pneumonia with worsening hypoxia. Sputum with klebsiella and pseudomonas. Blood culture with gram-negative ladonna 1 out of 4 bottles Continue oxygen keep saturation at least 92%. Incentive spirometry while awake. Albuterol/ipratropium aerosols every 4 hours with albuterol aerosols every 2 hours. Continue IV Zosyn Endo: Diabetes mellitus Chronic prednisone use SSI to maintain euglycemia with Accu-Cheks every 4 hours/Novulog low regimen prednisone switch to IV Solu-Medrol because of nothing by mouth status Renal: Acute kidney injury in the setting of chronic kidney disease stage IIIB No hydronephrosis on CT abdomen/pelvis Strict intake output, monitor and replete electrolytes, follow BUN/creatinine. Avoid nephrotoxic drugs Renal function slightly worse. 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 Dr. Patel is following for CML. Restart Gleevec if platelet counts over 100,000 Hep ab negative. Transfused 2 units packed RBC to keep hemoglobin at least 8. Improved hemoglobin ID: Hospital-acquired pneumonia Continue Zosyn and follow-up culture. Consider reconsulting infectious disease MSK: Right hip osteoarthritis PT following Access - Peripheral IV's Prophylaxis - GI - pantoprazole - DVT - SCD/ hold pharmacological prophylaxis secondary to thrombocytopenia Discharge Planning Not ready for discharge. Discussed with palliative care to clarify goals of care Problem Qualifiers (1) Diverticulosis: (2) Acute respiratory failure: Qualified Codes: J96.02 - Acute respiratory failure with hypercapnia (3) Leukopenia: Qualified Codes: D72.819 - Decreased white blood cell count, unspecified (4) Diabetes mellitus: Qualified Codes: E11.8 - Type 2 diabetes mellitus with unspecified complications Tommie Victoria MD Jul 07, 2017 09:25
[2017-07-07] MEDS: methylPREDNISolone SOD SUCC 40 MG/1 ML VIAL IV PUSH SCH ×2 (09:28→20:23)
[2017-07-07] MEDS: FUROSEMIDE 20 MG/2 ML VIAL IV PUSH SCH ×2 (09:29→18:07)
[2017-07-07] MEDS ORDERED: SODIUM CHLOR 0.9% 1000 ML INJ 1,000 ML IV PRN (09:30)
[2017-07-07 10:51] LABS: BASOPHIL % 0.1 % (0.0-2.0); HEMATOCRIT 27.7 % (39.0-51.0); HEMOGLOBIN 9.6 GM/DL (13.0-17.0); LYMPH % 8.1 % (9.0-44.0); LYMPHOCYTE # 0.4 TH/MM3 (1.0-4.8); MEAN CELL VOLUME 96.8 FL (80.0-100.0); MEAN CORPUSCULAR HEMOGLOBIN 33.6 PG (27.0-34.0); MEAN CORPUSCULAR HGB CONC 34.7 % (32.0-36.0); MEAN PLATELET VOLUME 8.8 FL (7.0-11.0); MONO % 2.2 % (0.0-8.0); MONOCYTE # 0.1 TH/MM3 (0-0.9); NEUT % 89.6 % (16.0-70.0); PLATELET COUNT 87 TH/MM3 (150-450); RED BLOOD COUNT 2.86 MIL/MM3 (4.50-5.90); RED CELL DISTRIBUTION WIDTH 22.2 % (11.6-17.2); WHITE BLOOD COUNT 5.5 TH/MM3 (4.0-11.0)
--- NOTE | 2017-07-07 11:38 | PD.CONS ---
Consult Service Palliative Care Consult Requested By Dr Victoria . Primary Care Physician Non-Staff Reason for Consultation a. To assist with evaluation and management of symptoms including: dyspnea, pain, n/v/constipation b. To assist medical decision maker(s) with: better understanding of current medical conditions; weighing benefits/burdens of medical treatment options; making medical treatment decisions. HPI History of Present Illness This 82 year old pt presented to the ED 06/24/17 via EMS w RU, RL quadrant pain , radiating to his back. Diffuse abdominal pain and an episode of vomiting. Patient reporting earlier that day hypotensive during a home health visit. reported he was drinking a lot of fluids but not eating solid foods. He was constipated and having decreased urine output 3 days. EMS reports BP en route 81/46. * EKG = sinus rhythm. Received IV fluid bolus, initial CXR with no acute process identified, did show some signs of interstitial pulmonary disease. Blood cultures obtained, Zosyn, vancomycin initiated. Some improvement of hypotension after 3 L of fluid. Patient with some emesis of greenish bile, NG tube placed. Patient with significant abdominal distention. Concern for possible obstruction, unable to complete CT with contrast due to renal failure. BUN 120/creatinine 4.68 GFR 12. Troponin 0.19. Total CK 2637. CK MB 57.8. Patient admitted to ICU for further evaluation and management. Cultures pending ; on Vanco, Zosyn * CT abd/pelvis revealed diverticulosis, edematous gallbladder with some stones , 3.9 cm abdominal aortic aneurysm, kidneys unremarkable no hydronephrosis. HIDA scan pending. 2-D echo pending. Serial troponins pending. * 2-D echo with LVEF 45-50%, trace MR and TR. Likely type II demand ischemia secondary to hypotension * HIDA scan= no evidence of cystic duct obstruction, has biliary enteric reflux * Nephrology consulted: Nephrology feels patient most likely has underlying CKD due to hypertension, diabetes now with acute kidney injury secondary to ATN from hypotension. Annual IV fluids avoid nephrotoxins, follow renal function. 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 He has been on Gleevec. Dr. Shirley notes pancytopenia with macrocytosis likely due to severe sepsis. Severe bandemia also consistent with severe sepsis. Severe abdominal pain, constipation and nausea may be due to GI infection. Hold Gleevec for now. Consider general surgery consult for abdominal distention; may have intra- abdominal pathology. Patient requiring Levophed drip * GI consulted: Abdomen x-ray= No significant interval change. Distended air- filled small bowel and scattered gas and stool in the colon again seen. Follow KUB, consider NG tube. Consider repeat colonoscopy if symptoms worsen. * ID consult 06/27: IV Zosyn discontinued sepsis ruled out thus far following cultures. Echo with no vegetations noted. Observe off antibiotics as no obvious source of infection, hypotension multifactorial. ? Colonic diverticulosis though exam benign that day.? TNF related exaggerated response. * 06/29 having BMs. Renal function improving. 06/30 KUB with less distention. Tolerating nasal cannula. Blood culture, urine cultures negative to date. * 07/01 patient remains stable. Critical care signs off to hospitalist medical attending. Having bowel movements. Tolerating some oral intake. Platelets improving. Oncology plans to resume Gleevec once platelets at least 100 K. Plan to follow-up in outpatient clinic if patient discharge. * 07/03 some mild abdominal pain after eating, not passing flatus, no BM since 07/01. Patient refusing laxatives. Episode of vomiting after lunch. Medical attending notes discussed with patient and son encourage use of bowel regimen and increase activity out of bed and ambulating. * 07/04 passing some flatus. Abdominal pain slightly better. Medical attending discussed with GI patient to receive Relistor. Patient refused PT though indicated he was working with his grandson. * 07/[address] repeated=1. Left lower lobe consolidation. 2. Dilated loops of proximal and mid small bowel. 3. Stable distal abdominal aortic aneurysm. 4. Stable sigmoid diverticulosis without evidence of diverticulitis// * 07/06 GI following patient refused NG the night prior patient accepting of NG tube 07/06 when discussed with GI, NG tube placed to low intermittent wall suction, patient nothing by mouth with IV fluids. Plan for KUB in a.m. * Palliative care consulted to assist with clarification of goals of treatment. PT seen in room, grandson at bedside. , son out to 's Dr appointment. Pt lethargic, falls asleep easily. Short of breath with conversation. Mostly oriented, forgetful at times. Attempt ROS- he is unable or reluctant to further qualify pain, location, etc, as well as further discuss methadone out pt etc, he tells me I can find that out from his . He is very focused on NGT and repeats that he wants it out. Upon exploration he understands indication/ recommendations for and agrees will keep it however finds it very uncomfortable. He is waiting for PT to come assist him with ambulation today. Review of conditions, tx in place during hospital course. Alternatively review that if pt continues to decline and does NOT want ongoing aggressive/invasive interventions (IE NGT, FM o2 etc) he has the option for comfort/hospice with the expectation he would continue to decline until his eventual . Grandson, pt request I discuss again/further when , son return. contact information left, they will call me when family arrives later. 1530 pt seen again in room, at bedside, she called son Willy, met with them on speaker phone, pt sleeps through most of discussion. Very moist weak cough several times. Function/Cognitive Trajectory Lives at home with ambulates short distances with cane, uses O2 at home-- all night, as needed during the day. Previously utilize home [facility] home. Review of Systems ROS Limitations: Uncooperative (lethargic, uncooperative at times.) Constitutional: COMPLAINS OF: Fatigue, DENIES: Weight loss, Dizziness, Change in appetite Eyes: DENIES: Vision loss Ears, nose, mouth, throat: COMPLAINS OF: Throat pain ("dry"), DENIES: Oral lesions Respiratory: COMPLAINS OF: Cough, Shortness of breath, DENIES: Sputum production Cardiovascular: COMPLAINS OF: Dyspnea on Exertion, Lower Extremity Edema, DENIES: Chest pain Gastrointestinal: COMPLAINS OF: Abdominal pain (intermittent ), Constipation ( intermittent ), Nausea (intermittent ), Vomiting, DENIES: Difficulty Swallowing Genitourinary: COMPLAINS OF: Urinary frequency (2/2 lasix) Musculoskeletal: COMPLAINS OF: Joint pain (hip), DENIES: Back pain Integumentary: DENIES: Rash Neurologic: DENIES: Headache Past Family Social History Coded Allergies: No Known Allergies (Verified , 09/19/15) Past Medical History CML- dx 1998 -BCR/ABL-positive follows w Dr Patel COPD CHF AAA-- follows with Dr. 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 Prednisone 10 Mg Tab 10 Mg PO DAILY PRN Ferrous Sulfate 325 Mg (65 Mg Iron) Tablet 325 Mg PO BIDPC Amiodarone (Amiodarone HCl) 200 Mg Tab 200 Mg PO DAILY Coreg (Carvedilol) 3.125 Mg Tab 3.125 Mg PO BID Aspirin 325 Mg Tab 325 Mg PO DAILY Glipizide 5 Mg Tab 5 Mg PO DAILY Take 30 minutes before a meal Lasix (Furosemide) 40 Mg Tab 40 Mg PO DAILY Gleevec (Imatinib Mesylate) 100 Mg Tab 400 Mg PO DAILY . Current Medications Medications (Trade) Dose Ordered Sig/Sunil Route Start Time Stop Time Status Last Admin (NS Flush) 2 ml UNSCH PRN IV FLUSH 06/24/17 20:30 (NS Flush) 2 ml BID IV FLUSH 06/24/17 21:00 07/07/17 09:27 (Tylenol) 650 mg Q6H PRN PO 06/24/17 20:30 (Zofran Inj) 4 mg Q6H PRN IV PUSH 06/24/17 20:30 07/03/17 17:30 Miscellaneous Information 1 Q361D XX 06/24/17 20:30 (Chlorhexidine 2% Cloth) Taper DAILY@04 TOP 06/25/17 04:00 06/21/18 03:59 07/01/17 04:00 (Chlorhexidine 2% Cloth) 3 pack UNSCH PRN TOP 06/24/17 20:30 (Olesya-Colace) 1 tab BID PO 06/24/17 21:00 07/06/17 09:55 (Senokot) 17.2 mg Q12H PRN PO 06/24/17 20:30 (Dulcolax Supp) 10 mg DAILY PRN RECTAL 06/24/17 20:30 06/28/17 08:31 (Cordarone) 200 mg DAILY PO 06/25/17 09:00 07/06/17 09:55 (Methadone Liq) 2.5 mg BID PO 06/24/17 21:00 07/06/17 09:55 (D50w (Vial) Inj) 50 ml UNSCH PRN IV PUSH 06/24/17 20:30 06/24/17 21:15 (Glucagon Inj) 1 mg UNSCH PRN OTHER 06/24/17 20:30 (Brethine Inj) 1 mg UNSCH PRN SQ 06/24/17 21:00 (NS Flush) DAILY IV FLUSH 06/25/17 09:00 07/06/17 09:00 (NS Flush) UNSCH PRN IV FLUSH 06/24/17 21:30 (Morphine Inj) 2 mg Q3H PRN IV PUSH 06/24/17 23:15 07/05/17 18:44 (Morphine Inj) 4 mg Q3H PRN IV PUSH 06/24/17 23:15 07/06/17 02:26 (Dulcolax Ec) 10 mg HS PO 06/26/17 21:00 07/05/17 21:13 (Senna Liq) 8.8 mg DAILY PO 06/28/17 09:00 07/06/17 09:55 (Duoneb Neb) 1 ampule Q2HR NEB PRN NEB 06/29/17 08:30 (Protonix) 40 mg DAILY PO 07/01/17 09:00 07/06/17 09:55 (NovoLIN R SUPPLEMENTAL SCALE) 1 ACHS SQ 07/02/17 12:00 07/07/17 08:00 (Deltasone) 20 mg BID PO 07/02/17 21:00 Future Hold 07/06/17 09:55 (Lasix Inj) 20 mg BID@09,18 IV PUSH 07/03/17 09:00 07/07/17 09:29 (Lactulose Liq) 30 ml BID PO 07/04/17 09:00 07/06/17 09:56 (Duoneb Neb) 1 ampule Q4HR NEB PRN INH 07/05/17 17:00 07/06/17 20:26 Piperacillin Sod/ Tazobactam Sod 50 ml @ 200 mls/hr Q6HR IV 07/06/17 18:00 07/07/17 05:16 (SoluMEDROL INJ) 40 mg Q12HR IV PUSH 07/06/17 21:00 07/07/17 09:28 Sodium Chloride 1,000 ml @ 70 mls/hr [id number] PRN IV 07/07/17 09:30 Family History Mother from stomach cancer. Father with emphysema. One child with brain cancer. . Substance Use Tobacco: 1 PPD since age 15 quit smoking in 1993 Alcohol: Quit alcohol in 1993 Prescription med abuse: None Illicits: None . Psychosocial History lives at home with his of 61 years. Originally from [place] moved to [place] in the late . His adult children and grandchildren still reside in [place]. Retired from [employer]. . Spiritual/Cultural Factors Does not indicate any spiritual/pentecostalism preference does not want hogshead liner visits.. Living Will: Completed, but not made available Health Care Surrogate: Completed, but not made available Ethical and Legal Issues Patient is lethargic, alertness fluctuates, he seems to have on some understanding/insight; likely would best be supported by shared decision-making by either his or whomever is designated healthcare surrogate. May have advanced directives awaiting documents. . Physical Exam Vital Signs Date Time Temp Pulse Resp B/P (MAP) Pulse Ox O2 Delivery O2 Flow Rate FiO2 07/07/17 04:00 97.9 80 22 117/59 (78) 94 07/07/17 04:00 Venturi Mask 50 07/07/17 00:00 99.2 84 19 118/63 (81) 93 07/07/17 00:00 Venturi Mask 50 07/06/17 20:49 89 Venturi Mask 50 07/06/17 20:17 79 07/06/17 20:00 98.0 85 21 142/72 (95) 95 07/06/17 20:00 Venturi Mask 50 07/06/17 16:00 98.2 90 24 126/71 (89) 91 07/06/17 13:00 98.0 100 22 117/60 (79) 92 Exam CONSTITUTIONAL/GENERAL: Lethargic, adequately nourished male. TUBES/LINES/DRAINS: Peripheral IV left upper extremity, Venturi facemask 50% FiO2, NG tube to low LIWS SKIN: No jaundice, rashes, or lesions. Few scattered ecchymosis upper extremities. No wounds seen anteriorly. Skin warm, dry.+ Edema bilateral lower extremities. HEAD: Atraumatic. Normocephalic. EYES: Pupils equal and round and reactive. Extraocular motions intact. No scleral icterus. No injection or drainage. Fundi not examined. ENT: Hard of hearing. Nose without bleeding or purulent drainage. Limited oropharynx exam due to unable to remove facemask O2. Mucous membranes appear dry. NECK: Trachea midline. Supple, nontender. CARDIOVASCULAR: Regular rate and rhythm without murmur. No JVD. Peripheral pulses symmetric.2+ edema bilateral lower legs. RESPIRATORY/CHEST: Symmetric, mildly labored respirations at times. Mildly tachypneic with conversation. Coarse air movement throughout, diminished bases. GASTROINTESTINAL: Abdomen soft, slightly distended, mildly tender. No palpable masses. No guarding. Bowel sounds intermittent. NG tube to wall suction noted greenish liquid draining GENITOURINARY: Without palpable bladder distension. Voids to urinal MUSCULOSKELETAL: Extremities without clubbing, cyanosis. 2+ edema bilateral lower legs. No joint tenderness or effusion noted. No mottling or clubbing. NEUROLOGICAL: Lethargic though awakens for exam. Mostly oriented though forgetful at times. Some limited insight, forgetful. Moves all 4 extremities generally cooperative. PSYCHIATRIC: No obvious anxiety/depression. Diagnostic Tests Laboratory Laboratory Tests Test 07/05/17 06:40 07/05/17 10:31 07/06/17 02:08 07/07/17 06:47 White Blood Count 4.0 TH/MM3 (4.0-11.0) 5.1 TH/MM3 (4.0-11.0) Red Blood Count 1.91 MIL/MM3 (4.50-5.90) 2.87 MIL/MM3 (4.50-5.90) Hemoglobin 7.0 GM/DL (13.0-17.0) 9.6 GM/DL (13.0-17.0) Hematocrit 20.1 % (39.0-51.0) 27.6 % (39.0-51.0) Mean Corpuscular Volume 105.1 FL (80.0-100.0) 96.2 FL (80.0-100.0) Mean Corpuscular Hemoglobin 36.5 PG (27.0-34.0) 33.4 PG (27.0-34.0) Mean Corpuscular Hemoglobin Concent 34.7 % (32.0-36.0) 34.7 % (32.0-36.0) Red Cell Distribution Width 14.7 % (11.6-17.2) 22.5 % (11.6-17.2) Platelet Count 79 TH/MM3 (150-450) 89 TH/MM3 (150-450) Mean Platelet Volume 9.3 FL (7.0-11.0) 8.5 FL (7.0-11.0) Neutrophils (%) (Auto) 86.0 % (16.0-70.0) 88.3 % (16.0-70.0) Lymphocytes (%) (Auto) 8.7 % (9.0-44.0) 7.5 % (9.0-44.0) Monocytes (%) (Auto) 5.1 % (0.0-8.0) 4.2 % (0.0-8.0) Eosinophils (%) (Auto) 0.1 % (0.0-4.0) 0.0 % (0.0-4.0) Basophils (%) (Auto) 0.1 % (0.0-2.0) 0.0 % (0.0-2.0) Neutrophils # (Auto) 3.4 TH/MM3 (1.8-7.7) 4.5 TH/MM3 (1.8-7.7) Lymphocytes # (Auto) 0.3 TH/MM3 (1.0-4.8) 0.4 TH/MM3 (1.0-4.8) Monocytes # (Auto) 0.2 TH/MM3 (0-0.9) 0.2 TH/MM3 (0-0.9) Eosinophils # (Auto) 0.0 TH/MM3 (0-0.4) 0.0 TH/MM3 (0-0.4) Basophils # (Auto) 0.0 TH/MM3 (0-0.2) 0.0 TH/MM3 (0-0.2) CBC Comment AUTO DIFF AUTO DIFF Differential Total Cells Counted 100 100 Neutrophils % (Manual) 37 % (16-70) 63 % (16-70) Band Neutrophils % 57 % (0-6) 26 % (0-6) Lymphocytes % 5 % (9-44) 7 % (9-44) Neutrophils # (Manual) 3.8 TH/MM3 (1.8-7.7) 4.5 TH/MM3 (1.8-7.7) Metamyelocytes 1 % (0-1) Differential Comment FINAL DIFF MANUAL FINAL DIFF MANUAL Toxic Granulation 3+ (NORMAL) 1+ (NORMAL) Toxic Vacuolation PRESENT (NONE SEEN) Dohle Bodies PRESENT (NONE SEEN) PRESENT (NONE SEEN) Platelet Estimate LOW (NORMAL) LOW (NORMAL) Platelet Morphology Comment NORMAL (NORMAL) NORMAL (NORMAL) Blood Urea Nitrogen 32 MG/DL (7-18) 32 MG/DL (7-18) 35 MG/DL (7-18) Creatinine 1.87 MG/DL (0.60-1.30) 1.88 MG/DL (0.60-1.30) 1.98 MG/DL (0.60-1.30) Random Glucose 181 MG/DL (74-106) 162 MG/DL (74-106) 155 MG/DL (74-106) Calcium Level 7.9 MG/DL (8.5-10.1) 7.8 MG/DL (8.5-10.1) 7.6 MG/DL (8.5-10.1) Magnesium Level 1.7 MG/DL (1.5-2.5) 1.6 MG/DL (1.5-2.5) 1.9 MG/DL (1.5-2.5) Sodium Level 142 MEQ/L (136-145) 144 MEQ/L (136-145) 144 MEQ/L (136-145) Potassium Level 3.5 MEQ/L (3.5-5.1) 3.9 MEQ/L (3.5-5.1) 3.8 MEQ/L (3.5-5.1) Chloride Level 106 MEQ/L (98-107) 106 MEQ/L (98-107) 106 MEQ/L (98-107) Carbon Dioxide Level 27.3 MEQ/L (21.0-32.0) 30.5 MEQ/L (21.0-32.0) 31.0 MEQ/L (21.0-32.0) Anion Gap 9 MEQ/L (5-15) 8 MEQ/L (5-15) 7 MEQ/L (5-15) Estimat Glomerular Filtration Rate 35 ML/MIN (>89) 35 ML/MIN (>89) 33 ML/MIN (>89) Lactic Acid Level 1.2 mmol/L (0.4-2.0) Monocytes % 4 % (0-8) Ovalocytes 1+ (NORMAL) Result Diagram: 07/06/17 0208 07/07/17 0647 Microbiology Microbiology Date/Time Source Procedure Growth Status 07/06/17 02:13 Blood Peripheral Aerobic Blood Culture Pending Received 07/06/17 02:13 Blood Peripheral Anaerobic Blood Culture Pending Received 07/06/17 02:08 Blood Peripheral Aerobic Blood Culture Pending Received 07/06/17 02:08 Blood Peripheral Anaerobic Blood Culture Pending Received 07/05/17 21:00 Sputum Expectorated Sputum Gram Stain - Final Resulted 07/05/17 21:00 Sputum Culture - Preliminary Gram Negative Rubio Resulted Imaging Last Impressions Abdomen/Pelvis CT 07/05/17 0000 Signed Impressions: Service Date/Time: Wednesday, July 05, 2017 15:06 - CONCLUSION: 1. Left lower lobe consolidation. 2. Dilated loops of proximal and mid small bowel. 3. Stable distal abdominal aortic aneurysm. 4. Stable sigmoid diverticulosis without evidence of diverticulitis. David Gutierrez MD Abdomen X-Ray 07/05/17 0000 Signed Impressions: Service Date/Time: Wednesday, July 05, 2017 21:56 - CONCLUSION: Increased gaseous distention of the small bowel when compared to 06/30/17. David Gutierrez MD Chest X-Ray 06/29/17 0000 Signed Impressions: Service Date/Time: Thursday, June 29, 2017 08:22 - CONCLUSION: Mild bibasilar atelectasis. Mild compensated and unchanged cardiomegaly. Alli Hansen MD Hepatobiliary Scan Nuclear Medicine 06/25/17 0000 Signed Impressions: Service Date/Time: Sunday, June 25, 2017 10:43 - CONCLUSION: 1. No evidence for cystic duct obstruction. 2. Biliary enteric reflux. Braulio Sellers MD Patient/Family Conference Issues Discussed: * Palliative care role, purpose, approach * Additional medical, psychosocial, and spiritual history * Patients general health, functional status, and cognitive changes in the months leading up to the current hospitalization * Patient/family understanding of the current medical problems * Patient/family understanding of prognosis * Patients goals of care as best understood from advance directives and/or conversations and/or values * Current medical treatment options and benefits/burdens of those options * Likely scenarios comparing ongoing aggressive care with a transition to comfort measures only * Questions answered to the best of my ability * Palliative care contact information provided PT seen in room, grandson at bedside. , son out to 's Dr appointment. Pt lethargic, falls asleep easily. Short of breath with conversation. Mostly oriented, forgetful at times. Attempt ROS- he is unable or reluctant to further qualify pain, location, etc, as well as further discuss methadone out pt etc, he tells me I can find that out from his . He is very focused on NGT and repeats that he wants it out. Upon exploration he understands indication/ recommendations for and agrees will keep it however finds it very uncomfortable. Review of conditions, tx in place during hospital course. Alternatively review that if pt continues to decline and does NOT want ongoing aggressive/invasive interventions (IE NGT, FM o2 etc) he has the option for comfort/hospice with the expectation he would continue to decline until his eventual . Grandson, pt request I discuss again/further when , son return. contact information left, they will call me when family arrives later. 1530 pt seen again in room, at bedside, she called son Willy, met with them on speaker phone, pt sleeps through most of discussion. Pt w Very moist weak cough several times. Spoke w , son RE the above bullet points. Much Exploration of hospital course, treatments in place, patient overall prognosis given continued conditions and ongoing deconditioning due to acute hospitalization. Review of advance directives patient has not completed advanced directive or health care surrogate. Per [place] statutes would be appropriate legal decision maker. Upon review of CODE STATUS indicates that patient has told her during this hospital course that he is "going down ", and that he is not going to recover from this. She feels that he would probably want DNR though they wish as a family to talk with him further about this. Review of continued ongoing aggressive/invasive treatments versus de-escalation in transition to comfort, review of hospice services. All questions answered to the best of my ability. They wish to continue to talk as a family later this evening, son feels if he could just continue to encourage the patient more and the patient would be more willing to participate than maybe he would get well. verbalizes that she has seen the patient with general decline and she does not feel he is able nor does he want to continue to try to "fight " to get better . Palliative will follow-up with patient, family again tomorrow between 10:30/11 AM. Assessment and Plan Disease Oriented Problem List: (1) CKD (chronic kidney disease), stage III (2) Acute renal failure (3) Hypotension (4) Severe sepsis (5) Diverticulosis (6) Chronic systolic heart failure (7) CML (chronic myelocytic leukemia) (8) Pancytopenia (9) COPD (chronic obstructive pulmonary disease) (10) Diabetes mellitus Symptom Scale: (1) Dyspnea (2) Pain (3) Nausea (4) Constipation (5) Fatigue Pertinent Non-Medical Issues Psychosocial:lives at home with his of 61 years. Originally from [place] moved to [place] in the late . His adult children and grandchildren still reside in [place]. Retired from [employer]. Spiritual:Does not indicate any spiritual/pentecostalism preference does not want hogshead liner visits..( later indicates that he would in fact want hogshead liner visits and requests them-she indicates that they have no particular affiliation but believes in God and would want to support) Legal: Patient is lethargic, alertness fluctuates, he seems to have on some understanding/insight; likely would best be supported by shared decision-making by either his or whomever is designated healthcare surrogate. Ethical issues impacting care: Important Contacts Jazzy Tabares [phone] . Prognosis This patient was admitted for nausea vomiting and severe abdominal pain. Along his course he is found to have significant hypotension requiring aggressive fluid resuscitation. Sepsis workup essentially negative though he has had ongoing GI pathology. He continues to have GI distention and ileus. May have pleural effusion, has had increased FiO2 requirements. Underlying COPD. Overall prognosis to recover to prior level of independence is guarded patient may require rehabilitation following this acute hospitalization. Additionally patient is very high risk for further complications and setbacks and decline secondary to his advanced age, limited desire to participate, and multiple medical issues. . Code Status: Full Code Plan * Legal decision maker:Patient is lethargic, alertness fluctuates, he seems to have on some understanding/insight; likely would best be supported by shared decision-making by either his or whomever is designated healthcare surrogate. * Goals: TBB, plan to discuss further once son and arrived. Patient is reluctant to discuss conditions and further qualify during my discussion with him and grandson. On one hand patient wants to feel better and get out of the hospital, but on the other hand he does not want to continue to undergo uncomfortable procedures such as NG tube, facemask O2 etc. 1530--later met with patient and son see family conference for additional detail. Son feels like they should continue to encourage him to try to improve and get better, though feels that he has had general decline and that he no longer has the will to try to get better and that he knows he is "going down", and has told her such. They're going to have ongoing conversations as a family, able discuss CODE STATUS with patient. Palliative plans to follow-up with them tomorrow to further discuss goals. * CODE STATUS: Full code * SYMPTOMS: --Dyspnea-CXR 06/29 with mild bibasilar atelectasis; has remained acutely hospitalized, increased FiO2 requirements currently requiring 50% FiO2. Abdomen pelvis CT from 07/05 indicative of lower lobe consolidation. Has not been utilizing incentive spirometry. Has not been out of bed or ambulating regularly. Underlying history of COPD O2 dependent at night and utilized O2 as needed during the day. High risk for further respiratory decline secondary to acute illness and underlying medical comorbidities. --Pain--patient endorses hip pain as well as abdominal pain unable to further qualify for me today. Abdominal pain probably secondary to ileus. 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 He has been on methadone outpatient though he is unable to further describe for me how long he has been on this or who prescribed for him. For now I will monitor ongoing prn requirements further recommendations or titration pending patient ability to qualify pain; as well as prn acquired/efficacy --Nausea/vomiting-patient with intermittent episodes of nausea and vomiting 2 /2 ileus, abdominal pathology. Some relief with NG tube in place NG tube with moderate amount of output though patient wishes to have NG removed as soon as medically possible. --Constipation-patient with intermittent episodes of nausea and vomiting 2/2 ileus, abdominal pathology. Some relief with NG tube in place NG tube with moderate amount of output though patient wishes to have NG removed as soon as medically possible. GI following. Last BM 07/05. Patient has intermittently refused bowel regimen, has received Relistor as well as various laxatives during this hospitalization. --Fatigue/generalized weakness-generalized deconditioning during hospital course, + ileus, pulmonary effusion, activity further limited by chronic comorbid conditions COPD, now with 13 day hospitalization and has intermittently refused to participate with PT. Likely require ongoing PT for reconditioning and possibly rehabilitation at discharge. * Palliative care will continue to follow during hospital course as condition evolves, to assist patient/decision-maker with understanding of medical conditions, weighing benefits/burdens of treatment options, for clarification of goals of treatment. Additionally will assist with any symptoms of palliative concern Time Spent Total Floor Time (mins): 65 (Chart review, PE, discussion with medical attending, RN, repeat visit to patient room to meet with family) Thank you for the opportunity to participate in the care of Mr. Tabares. Attestation To help prompt me to consider important information that might be impacting today's encounter and assessment, information from prior notes written by myself or my colleagues may have been "brought forward" into today's note. My signature on this note, however, is an attestation that I personally performed the exam, history, and/or decision-making noted today, and, unless otherwise indicated, the interactions with patient, family, and staff as well as the review of records all occurred today. I also attest that the listed assessment and stated plan reflect my best clinical judgment today based on the combination of historical information, prior notes, and today's exam/ interactions. When time spent is documented, it refers only to time spent today by the signer, or if indicated, combined time spent today by collaborating physician/nurse practitioner. Rashmi Collazo Jul 07, 2017 11:35
[2017-07-07 11:53] LABS: BANDS 34 % (0-6); LYMPHOCYTES 11 % (9-44); MONOCYTES 3 % (0-8); NEUTROPHIL # MANUAL DIFF 4.7 TH/MM3 (1.8-7.7); POLYS (SEG NEUTROPHILS) 52 % (16-70)
[2017-07-07 11:55] LABS: TOXIC GRANULATION 1+ (NORMAL)
--- NOTE | 2017-07-07 12:10 | PD.ONC.PN ---
Subjective Subjective Remarks Afebrile overnight. Wants to have NGT out today. Tired of being in the hospital. Has also had increased O2 requirements and has been on FM since last night. Objective Data Date Time Temp Pulse Resp B/P (MAP) Pulse Ox O2 Delivery O2 Flow Rate FiO2 07/07/17 04:00 97.9 80 22 117/59 (78) 94 07/07/17 04:00 Venturi Mask 50 07/07/17 00:00 99.2 84 19 118/63 (81) 93 07/07/17 00:00 Venturi Mask 50 07/06/17 20:49 89 Venturi Mask 50 07/06/17 20:17 79 07/06/17 20:00 98.0 85 21 142/72 (95) 95 07/06/17 20:00 Venturi Mask 50 07/06/17 16:00 98.2 90 24 126/71 (89) 91 07/06/17 13:00 98.0 100 22 117/60 (79) 92 07/07/17 07/07/17 07/07/17 07:00 15:00 23:00 Intake Total 100 ml Output Total 1050 ml Balance -950 ml Result Diagram: 07/07/17 1022 07/07/17 0647 Laboratory Results Laboratory Tests Test 07/07/17 06:47 07/07/17 10:22 Blood Urea Nitrogen 35 MG/DL Creatinine 1.98 MG/DL Random Glucose 155 MG/DL Calcium Level 7.6 MG/DL Magnesium Level 1.9 MG/DL Sodium Level 144 MEQ/L Potassium Level 3.8 MEQ/L Chloride Level 106 MEQ/L Carbon Dioxide Level 31.0 MEQ/L Anion Gap 7 MEQ/L Estimat Glomerular Filtration Rate 33 ML/MIN White Blood Count 5.5 TH/MM3 Red Blood Count 2.86 MIL/MM3 Hemoglobin 9.6 GM/DL Hematocrit 27.7 % Mean Corpuscular Volume 96.8 FL Mean Corpuscular Hemoglobin 33.6 PG Mean Corpuscular Hemoglobin Concent 34.7 % Red Cell Distribution Width 22.2 % Platelet Count 87 TH/MM3 Mean Platelet Volume 8.8 FL Neutrophils (%) (Auto) 89.6 % Lymphocytes (%) (Auto) 8.1 % Monocytes (%) (Auto) 2.2 % Eosinophils (%) (Auto) 0.0 % Basophils (%) (Auto) 0.1 % Neutrophils # (Auto) 5.0 TH/MM3 Lymphocytes # (Auto) 0.4 TH/MM3 Monocytes # (Auto) 0.1 TH/MM3 Eosinophils # (Auto) 0.0 TH/MM3 Basophils # (Auto) 0.0 TH/MM3 CBC Comment AUTO DIFF Differential Total Cells Counted 100 Neutrophils % (Manual) 52 % Band Neutrophils % 34 % Lymphocytes % 11 % Monocytes % 3 % Neutrophils # (Manual) 4.7 TH/MM3 Differential Comment FINAL DIFF MANUAL Toxic Granulation 1+ Platelet Estimate LOW Platelet Morphology Comment NORMAL Culture Results Microbiology Date/Time Source Procedure Growth Status 07/06/17 02:13 Blood Peripheral Aerobic Blood Culture - Preliminary NO GROWTH IN 1 DAY Resulted 07/06/17 02:13 Blood Peripheral Anaerobic Blood Culture - Preliminary NO GROWTH IN 1 DAY Resulted 07/06/17 02:08 Blood Peripheral Aerobic Blood Culture - Preliminary Gram Negative Rubio Resulted 07/06/17 02:08 Blood Peripheral Anaerobic Blood Culture - Preliminary NO GROWTH IN 1 DAY Resulted 07/05/17 21:00 Sputum Expectorated Sputum Gram Stain - Final Resulted 07/05/17 21:00 Sputum Culture - Preliminary Klebsiella Pneumoniae Pseudomonas Species Resulted Administered Medications Medications (Trade) Dose Ordered Sig/Sunil Route PRN Reason Start Time Stop Time Status Last Admin Dose Admin Sodium Chloride (NS Flush) 2 ml BID IV FLUSH 06/24/17 21:00 07/07/17 09:27 Ondansetron HCl (Zofran Inj) 4 mg Q6H PRN IV PUSH NAUSEA OR VOMITING 06/24/17 20:30 07/03/17 17:30 Chlorhexidine Gluconate (Chlorhexidine 2% Cloth) Taper DAILY@04 TOP 06/25/17 04:00 06/21/18 03:59 07/01/17 04:00 Senna/Docusate Sodium (Olesya-Colace) 1 tab BID PO 06/24/17 21:00 07/06/17 09:55 Bisacodyl (Dulcolax Supp) 10 mg DAILY PRN RECTAL SEVERE CONSITIPATION 06/24/17 20:30 06/28/17 08:31 Amiodarone HCl (Cordarone) 200 mg DAILY PO 06/25/17 09:00 07/06/17 09:55 Methadone HCl (Methadone Liq) 2.5 mg BID PO 06/24/17 21:00 07/06/17 09:55 Dextrose (D50w (Vial) Inj) 50 ml UNSCH PRN IV PUSH HYPOGLYCEMIA-SEE COMMENTS 06/24/17 20:30 06/24/17 21:15 Sodium Chloride (NS Flush) DAILY IV FLUSH 06/25/17 09:00 07/06/17 09:00 Morphine Sulfate (Morphine Inj) 2 mg Q3H PRN IV PUSH pain 1-5 06/24/17 23:15 07/05/17 18:44 Morphine Sulfate (Morphine Inj) 4 mg Q3H PRN IV PUSH pain 6-10 06/24/17 23:15 07/06/17 02:26 Bisacodyl (Dulcolax Ec) 10 mg HS PO 06/26/17 21:00 07/05/17 21:13 Sennosides (Senna Liq) 8.8 mg DAILY PO 06/28/17 09:00 07/06/17 09:55 Pantoprazole Sodium (Protonix) 40 mg DAILY PO 07/01/17 09:00 07/06/17 09:55 Insulin Human Regular (NovoLIN R SUPPLEMENTAL SCALE) 1 ACHS SQ 07/02/17 12:00 07/07/17 08:00 Prednisone (Deltasone) 20 mg BID PO 07/02/17 21:00 Future Hold 07/06/17 09:55 Furosemide (Lasix Inj) 20 mg BID@09,18 IV PUSH 07/03/17 09:00 07/07/17 09:29 Lactulose (Lactulose Liq) 30 ml BID PO 07/04/17 09:00 07/06/17 09:56 Albuterol/ Ipratropium (Duoneb Neb) 1 ampule Q4HR NEB PRN INH SHORTNESS OF BREATH 07/05/17 17:00 07/06/17 20:26 Piperacillin Sod/ Tazobactam Sod 50 ml @ 200 mls/hr Q6HR IV 07/06/17 18:00 07/07/17 05:16 Methylprednisolone Sodium Succinate (SoluMEDROL INJ) 40 mg Q12HR IV PUSH 07/06/17 21:00 07/07/17 09:28 Objective Remarks GENERAL: Well-nourished, well-developed patient. SKIN: Warm and dry. HEAD: Normocephalic. EYES: No scleral icterus. No injection or drainage. NECK: Supple, trachea midline. No JVD or lymphadenopathy. LYMPHATIC: No adenopathy. CARDIOVASCULAR: Regular rate and rhythm without murmurs. RESPIRATORY: Breath sounds equal bilaterally. No accessory muscle use. GASTROINTESTINAL: Abdomen soft, non-tender, nondistended. EXTREMITIES: No cyanosis, or edema. MUSCULOSKELETAL: Adequate muscle tone. NEUROLOGICAL: No obvious focal deficit. Awake, alert, and oriented x3. PSYCHIATRIC: Appropriate mood and affect; insight and judgment normal. Assessment/Plan Problem List: (1) Pancytopenia ICD Codes: D61.818 - Other pancytopenia Plan: 07/07/17: monitor CBC. ok to resume Gleevac when platelets rise to greater than 100K. 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 hematology consulted for pancytopenia Attending Statement The exam, history, and the medical decision-making described in the above note were completed with the assistance of the mid-level provider. I reviewed and agree with the findings presented. I attest that I had a [id number] encounter with the patient on the same day, and personally performed and documented my assessment and findings in the medical record. SOB on FM O2 does not like NGT has Ileus. GI to follow. Plat 87k. Hold gleevec. d/w Mira Miller Jul 07, 2017 12:10 Fabrice Patel MD Jul 07, 2017 19:15
--- NOTE | 2017-07-07 15:06 | HHI.NPPN ---
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 I was called to see the patient because of elevated BUN and creatinine. Additional Remarks Patient is alert, with nasal cannula, has mild SOB, clinically same. Objective Data Data 07/07/17 07/08/17 19:00 07:00 Output Total 200 ml Balance -200 ml Output Urine Total 200 ml Vital Signs Date Time Temp Pulse Resp B/P (MAP) Pulse Ox O2 Delivery O2 Flow Rate FiO2 07/07/17 13:24 95 Venturi Mask 31 07/07/17 12:00 98.3 73 18 132/60 (84) 93 07/07/17 08:00 98.2 64 18 115/57 (76) 93 07/07/17 04:00 97.9 80 22 117/59 (78) 94 07/07/17 04:00 Venturi Mask 50 07/07/17 00:00 99.2 84 19 118/63 (81) 93 07/07/17 00:00 Venturi Mask 50 07/06/17 20:49 89 Venturi Mask 50 07/06/17 20:17 79 07/06/17 20:00 98.0 85 21 142/72 (95) 95 07/06/17 20:00 Venturi Mask 50 07/06/17 16:00 98.2 90 24 126/71 (89) 91 -: 07/07/17 1022 07/07/17 0647 Physical Exam General Appearance: No Acute Distress, Comfortable Eyes Eye Exam: Pupils Equal Throat Throat Exam: Oral Mucosa [place] & Moist Neck Neck Exam: Neck Supple Pulmonary Resp Exam: Breath Sounds Equal, No Distress, Rhonchi, Sputum, Decreased Bases Cardiology CV Exam: Regular, Normal Sinus Rhythm Gastrointestinal/Abdomen GI Exam: Soft, Non-Tender, Bowel Sounds Present Extremeties Extremities Exam: Moderate Edema, Pitting Edema, Dependent Edema Neurologic Neuro Exam: Alert, Awake, Oriented Psychiatric Psych Exam: Appropriate Responses Assessment/Plan Assessment Summary: LEESA/Acute Renal Failure, Hypertension, CKD Stage IV Problem List: (1) COPD (chronic obstructive pulmonary disease) ICD Codes: J44.9 - Chronic obstructive pulmonary disease, unspecified Status: Chronic (2) Bronchitis ICD Codes: J40 - Bronchitis, not specified as acute or chronic Status: Acute (3) HTN (hypertension) ICD Codes: I10 - Essential (primary) hypertension Status: Chronic (4) Diabetes mellitus ICD Codes: E11.9 - Type 2 diabetes mellitus without complications (5) Acute respiratory failure ICD Codes: J96.00 - Acute respiratory failure, unspecified whether with hypoxia or hypercapnia (6) Severe sepsis ICD Codes: A41.9 - Sepsis, unspecified organism; R65.20 - Severe sepsis without septic shock Status: Acute (7) Acute kidney injury ICD Codes: N17.9 - Acute kidney failure, unspecified Plan Patient has been non oliguric. Has Chronic kidney disease, possibly stage 3- 4. Now develop LEESA. K is normal, on Zosyn. ID is following. CT scan showed the ileus NG tube Creatinine increase slightly, 1.9. Continue diuretics, edema is improving. Problem Qualifiers (1) Diabetes mellitus: Qualified Codes: E11.8 - Type 2 diabetes mellitus with unspecified complications (2) Acute respiratory failure: Qualified Codes: J96.02 - Acute respiratory failure with hypercapnia Bismark Woods MD Jul 07, 2017 15:06
--- NOTE | 2017-07-07 15:22 | HHI.GIFU ---
Subjective Remarks Pt laying in bed, sleeping, easily awakened to voice. Reports improvement in abdominal distension since having NG tube placed last night. 800mL of dark green/brown drainage in wall suction container. Denies nausea, vomiting, still has had no BM. Objective Vitals I&O Vital Signs Date Time Temp Pulse Resp B/P (MAP) Pulse Ox O2 Delivery O2 Flow Rate FiO2 07/07/17 13:24 95 Venturi Mask 31 07/07/17 12:00 98.3 73 18 132/60 (84) 93 07/07/17 08:00 98.2 64 18 115/57 (76) 93 07/07/17 04:00 97.9 80 22 117/59 (78) 94 07/07/17 04:00 Venturi Mask 50 07/07/17 00:00 99.2 84 19 118/63 (81) 93 07/07/17 00:00 Venturi Mask 50 07/06/17 20:49 89 Venturi Mask 50 07/06/17 20:17 79 07/06/17 20:00 98.0 85 21 142/72 (95) 95 07/06/17 20:00 Venturi Mask 50 07/06/17 16:00 98.2 90 24 126/71 (89) 91 I/O 07/06/17 07/06/17 07/06/17 07/07/17 07/07/17 07/07/17 07:00 15:00 23:00 07:00 15:00 23:00 Intake Total 1550 ml 1010 ml 100 ml Output Total 550 ml 925 ml 1050 ml 200 ml Balance 1000 ml 85 ml -950 ml -200 ml Intake Oral 480 ml 960 ml 0 ml IV Total 270 ml 50 ml 100 ml Packed Cells 400 ml Blood Product IV Normal Saline Flush 400 ml Output Urine Total 550 ml 925 ml 1050 ml 200 ml # Bowel Movements 0 0 0 Laboratory Laboratory Tests Test 07/07/17 06:47 07/07/17 10:22 Blood Urea Nitrogen 35 Creatinine 1.98 Random Glucose 155 Calcium Level 7.6 Magnesium Level 1.9 Sodium Level 144 Potassium Level 3.8 Chloride Level 106 Carbon Dioxide Level 31.0 Anion Gap 7 Estimat Glomerular Filtration Rate 33 White Blood Count 5.5 Red Blood Count 2.86 Hemoglobin 9.6 Hematocrit 27.7 Mean Corpuscular Volume 96.8 Mean Corpuscular Hemoglobin 33.6 Mean Corpuscular Hemoglobin Concent 34.7 Red Cell Distribution Width 22.2 Platelet Count 87 Mean Platelet Volume 8.8 Neutrophils (%) (Auto) 89.6 Lymphocytes (%) (Auto) 8.1 Monocytes (%) (Auto) 2.2 Eosinophils (%) (Auto) 0.0 Basophils (%) (Auto) 0.1 Neutrophils # (Auto) 5.0 Lymphocytes # (Auto) 0.4 Monocytes # (Auto) 0.1 Eosinophils # (Auto) 0.0 Basophils # (Auto) 0.0 CBC Comment AUTO DIFF Differential Total Cells Counted 100 Neutrophils % (Manual) 52 Band Neutrophils % 34 Lymphocytes % 11 Monocytes % 3 Neutrophils # (Manual) 4.7 Differential Comment FINAL DIFF MANUAL Toxic Granulation 1+ Platelet Estimate LOW Platelet Morphology Comment NORMAL Date/Time Source Procedure Growth Status 07/06/17 02:13 Blood Peripheral Aerobic Blood Culture - Preliminary NO GROWTH IN 1 DAY Resulted 07/06/17 02:13 Blood Peripheral Anaerobic Blood Culture - Preliminary NO GROWTH IN 1 DAY Resulted 07/05/17 21:00 Sputum Expectorated Sputum Gram Stain - Final Resulted 07/05/17 21:00 Sputum Culture - Preliminary Klebsiella Pneumoniae Pseudomonas Species Resulted 06/24/17 15:55 Urine Catheterized Urine Urine Culture - Final NO GROWTH IN 48 HOURS. Complete Imaging Last Impressions Abdomen/Pelvis CT 07/05/17 0000 Signed Impressions: Service Date/Time: Wednesday, July 05, 2017 15:06 - CONCLUSION: 1. Left lower lobe consolidation. 2. Dilated loops of proximal and mid small bowel. 3. Stable distal abdominal aortic aneurysm. 4. Stable sigmoid diverticulosis without evidence of diverticulitis. David Gutierrez MD Abdomen X-Ray 07/05/17 0000 Signed Impressions: Service Date/Time: Wednesday, July 05, 2017 21:56 - CONCLUSION: Increased gaseous distention of the small bowel when compared to 06/30/17. David Gutierrez MD Chest X-Ray 06/29/17 0000 Signed Impressions: Service Date/Time: Thursday, June 29, 2017 08:22 - CONCLUSION: Mild bibasilar atelectasis. Mild compensated and unchanged cardiomegaly. Alli Hansen MD Hepatobiliary Scan Nuclear Medicine 06/25/17 0000 Signed Impressions: Service Date/Time: Sunday, June 25, 2017 10:43 - CONCLUSION: 1. No evidence for cystic duct obstruction. 2. Biliary enteric reflux. Braulio Sellers MD Physical Exam HEENT: Normocephalic; no jaundice, skin color pale CHEST: Diminished, no rhonchi CARDIAC: RRR. ABDOMEN: Soft, distended, nontender; bowel sounds hypoactive X 4 quadrants EXTREMITIES: BLE edema, weeping. RESEARCH ASST: Alert and oriented times three. Assessment and Plan Plan ASSESSMENT - Ileus. Last BM was on 07/01. Lactulose BID, Senna, Pericolace, Dulcolax. Relistor on 07/04. Of note, on Morphine and Methadone. NG tube placed last night to LIWS. Pt reports improvement in distension and pain. KUB pending for tomorrow. Encouraged pt to get OOB. Continue current bowel regimen. Will try SSE x 2 - GERD, PPI - Anemia. HH 9.6/27.7. s/p 2 U PRBC - LEESA, Creat. 1.98. nephrology following - ALEJANDRA, Resp. insuff. Venturi mask, - DM, CHF, Hx CML with leukopenia, per attending. PLAN - KUB for tomorrow to evaluate ileus - NG tube to LIWS - SSE x 2 - NPO except meds - Cont. Lactulose, Senna, Pericolace, Dulcolax supp - Cont. PPI - Encourage mobility - Supportive care - Further recommendations to follow based on results of above - Pt seen and examined by Dr. Saab and myself and this note is written on her behalf Amber Montenegro Jul 07, 2017 15:22
[2017-07-07] MEDS: BISACODYL EC 5 MG TABEC PO SCH (20:25)
[2017-07-08] VITALS (16 sets, daily range): BP systolic 115–169; BP diastolic 64–89; PULSE 62–95; RESP 14–24; TEMP 97.2–98.8; O2SAT 93–99
[2017-07-08] MEDS: CHLORHEXIDINE GLUCONATE 2 % 1 PACK (2 CLOTHS) TOP SCH (03:34)
--- NOTE | 2017-07-08 05:14 | RADRPT ---
EXAM DATE/TIME: 07/08/2017 04:09 [facility] COMPARISON: CT ABDOMEN & PELVIS W/O CONTRAST, July 05, 2017, 15:06. ABDOMEN KUB ONLY, July 05, 2017, 21: 56. INDICATIONS : Abdomen pain, Obstructrion. MEDICAL HISTORY : Cardiovascular disease. Congestive heart failure. Leukemia. Diabetes. SURGICAL HISTORY : Pacemaker. ENCOUNTER: Subsequent ACUITY: 1 week PAIN SCORE: 0/10 LOCATION: Bilateral abdomen FINDINGS: Supine view of the abdomen was performed. The abdominal bowel gas pattern is normal. There is more small bowel dilatation and air are seen on the prior exam. No abnormal masses, calcifications, or org anomegaly is seen. The osseous structures are unremarkable. CONCLUSION: Negative KUB. Alli Schroeder MD on July 08, 2017 at 5:09 Board Certified Radiologist. This report was verified electronically.
[2017-07-08] MEDS: PIPERACIL-TAZO 3.375 GM PREMIX 50 ML IV SCH ×5 (06:40→23:25)
[2017-07-08 06:53] LABS: HEMATOCRIT 28.4 % (39.0-51.0); HEMOGLOBIN 9.5 GM/DL (13.0-17.0); MEAN CELL VOLUME 97.3 FL (80.0-100.0); MEAN CORPUSCULAR HEMOGLOBIN 32.5 PG (27.0-34.0); MEAN CORPUSCULAR HGB CONC 33.3 % (32.0-36.0); MEAN PLATELET VOLUME 9.1 FL (7.0-11.0); PLATELET COUNT 89 TH/MM3 (150-450); RED BLOOD COUNT 2.92 MIL/MM3 (4.50-5.90); RED CELL DISTRIBUTION WIDTH 21.8 % (11.6-17.2); WHITE BLOOD COUNT 5.9 TH/MM3 (4.0-11.0)
[2017-07-08 07:18] LABS: BICARBONATE 31.8 MEQ/L (21.0-32.0); CALCIUM 7.4 MG/DL (8.5-10.1); CREATININE 1.92 MG/DL (0.60-1.30)
[2017-07-08 07:35] LABS: CALCIUM-PROTEIN CORRECTED 8.5 MG/DL (8.5-10.1); TOTAL PROTEIN 5.2 GM/DL (6.4-8.2)
[2017-07-08] MEDS: INSULIN NovoLIN REGULAR SUPPLEMENTAL SCALE SQ SCH ×4 (08:00→21:00)
[2017-07-08] MEDS: LACTULOSE SYRUP 20 GM/30 ML CUP PO SCH ×2 (09:00→21:33)
[2017-07-08] MEDS: DOCUSATE SODIUM 50 MG/SENNA 8.6 MG TAB PO SCH ×2 (09:00→21:00)
[2017-07-08] MEDS: SODIUM CHLORIDE 0.9% FLUSH 10 ML FLUSH IV FLUSH SCH ×3 (09:00→21:31)
[2017-07-08] MEDS: METHADONE HCL 10 MG/10 ML ORAL SOLUTION PO SCH ×2 (09:00→21:31)
[2017-07-08] MEDS: SENNOSIDES SYRUP 8.8 MG/5 ML CUP PO SCH (09:00)
--- NOTE | 2017-07-08 09:01 | PD.ONC.PN ---
Subjective Subjective Remarks Afebrile overnight. Patient resting in bed. Tired of having oxygen mask on and NGT in place. Wants to have both removed, "even if I I want them removed." Objective Data Date Time Temp Pulse Resp B/P (MAP) Pulse Ox O2 Delivery O2 Flow Rate FiO2 07/08/17 05:49 93 Venturi Mask 3.00 31 07/08/17 04:00 97.2 68 20 122/69 (86) 96 07/08/17 02:00 76 07/08/17 01:00 66 07/08/17 00:00 62 07/08/17 00:00 97.4 65 14 125/66 (85) 94 07/07/17 23:00 70 07/07/17 22:00 68 07/07/17 21:00 66 07/07/17 20:00 97.7 71 14 129/57 (81) 94 07/07/17 20:00 72 07/07/17 19:00 70 07/07/17 19:00 94 Venturi Mask 3.00 31 07/07/17 16:14 Venturi Mask 4.00 31 07/07/17 16:00 98.5 76 18 115/61 (79) 93 07/07/17 13:24 95 Venturi Mask 31 07/07/17 12:00 98.3 73 18 132/60 (84) 93 07/08/17 07/08/17 07/08/17 07:00 15:00 23:00 Output Total 325 ml Balance -325 ml Result Diagram: 07/08/1761707/08/17617 Laboratory Results Laboratory Tests Test 07/07/17 10:22 07/08/17 06:18 White Blood Count 5.5 TH/MM3 5.9 TH/MM3 Red Blood Count 2.86 MIL/MM3 2.92 MIL/MM3 Hemoglobin 9.6 GM/DL 9.5 GM/DL Hematocrit 27.7 % 28.4 % Mean Corpuscular Volume 96.8 FL 97.3 FL Mean Corpuscular Hemoglobin 33.6 PG 32.5 PG Mean Corpuscular Hemoglobin Concent 34.7 % 33.3 % Red Cell Distribution Width 22.2 % 21.8 % Platelet Count 87 TH/MM3 89 TH/MM3 Mean Platelet Volume 8.8 FL 9.1 FL Neutrophils (%) (Auto) 89.6 % Lymphocytes (%) (Auto) 8.1 % Monocytes (%) (Auto) 2.2 % Eosinophils (%) (Auto) 0.0 % Basophils (%) (Auto) 0.1 % Neutrophils # (Auto) 5.0 TH/MM3 Lymphocytes # (Auto) 0.4 TH/MM3 Monocytes # (Auto) 0.1 TH/MM3 Eosinophils # (Auto) 0.0 TH/MM3 Basophils # (Auto) 0.0 TH/MM3 CBC Comment AUTO DIFF AUTO DIFF Differential Total Cells Counted 100 Neutrophils % (Manual) 52 % Band Neutrophils % 34 % Lymphocytes % 11 % Monocytes % 3 % Neutrophils # (Manual) 4.7 TH/MM3 Differential Comment FINAL DIFF MANUAL Toxic Granulation 1+ Platelet Estimate LOW Platelet Morphology Comment NORMAL Blood Urea Nitrogen 40 MG/DL Creatinine 1.92 MG/DL Random Glucose 111 MG/DL Total Protein 5.2 GM/DL Calcium Level 7.4 MG/DL Magnesium Level 2.0 MG/DL Sodium Level 147 MEQ/L Potassium Level 3.7 MEQ/L Chloride Level 108 MEQ/L Carbon Dioxide Level 31.8 MEQ/L Anion Gap 7 MEQ/L Estimat Glomerular Filtration Rate 34 ML/MIN Protein Corrected Calcium 8.5 MG/DL Culture Results Microbiology Date/Time Source Procedure Growth Status 07/08/17 06:32 Blood Peripheral Aerobic Blood Culture Pending Received 07/08/17 06:32 Blood Peripheral Anaerobic Blood Culture Pending Received 07/08/17 06:18 Blood Peripheral Aerobic Blood Culture Pending Received 07/08/17 06:18 Blood Peripheral Anaerobic Blood Culture Pending Received 07/06/17 02:13 Blood Peripheral Aerobic Blood Culture - Preliminary NO GROWTH IN 1 DAY Resulted 07/06/17 02:13 Blood Peripheral Anaerobic Blood Culture - Preliminary NO GROWTH IN 1 DAY Resulted 07/06/17 02:08 Blood Peripheral Aerobic Blood Culture - Preliminary Klebsiella Pneumoniae Resulted 07/06/17 02:08 Blood Peripheral Anaerobic Blood Culture - Preliminary NO GROWTH IN 1 DAY Resulted 07/05/17 21:00 Sputum Expectorated Sputum Gram Stain - Final Complete 07/05/17 21:00 Sputum Culture - Final Klebsiella Pneumoniae Pseudomonas Aeruginosa Complete Imaging Studies Last 24 hours Impressions Abdomen X-Ray 07/08/17 0600 Signed Impressions: Service Date/Time: Saturday, July 08, 2017 04:09 - CONCLUSION: Negative KUB. Alli Schroeder MD Administered Medications Medications (Trade) Dose Ordered Sig/Sunil Route PRN Reason Start Time Stop Time Status Last Admin Dose Admin Sodium Chloride (NS Flush) 2 ml BID IV FLUSH 06/24/17 21:00 07/07/17 20:26 Ondansetron HCl (Zofran Inj) 4 mg Q6H PRN IV PUSH NAUSEA OR VOMITING 06/24/17 20:30 07/03/17 17:30 Chlorhexidine Gluconate (Chlorhexidine 2% Cloth) Taper DAILY@04 TOP 06/25/17 04:00 06/21/18 03:59 07/01/17 04:00 Senna/Docusate Sodium (Olesya-Colace) 1 tab BID PO 06/24/17 21:00 07/06/17 09:55 Bisacodyl (Dulcolax Supp) 10 mg DAILY PRN RECTAL SEVERE CONSITIPATION 06/24/17 20:30 06/28/17 08:31 Amiodarone HCl (Cordarone) 200 mg DAILY PO 06/25/17 09:00 07/06/17 09:55 Methadone HCl (Methadone Liq) 2.5 mg BID PO 06/24/17 21:00 07/06/17 09:55 Dextrose (D50w (Vial) Inj) 50 ml UNSCH PRN IV PUSH HYPOGLYCEMIA-SEE COMMENTS 06/24/17 20:30 06/24/17 21:15 Sodium Chloride (NS Flush) DAILY IV FLUSH 06/25/17 09:00 07/06/17 09:00 Morphine Sulfate (Morphine Inj) 2 mg Q3H PRN IV PUSH pain 1-5 06/24/17 23:15 07/05/17 18:44 Morphine Sulfate (Morphine Inj) 4 mg Q3H PRN IV PUSH pain 6-10 06/24/17 23:15 07/06/17 02:26 Bisacodyl (Dulcolax Ec) 10 mg HS PO 06/26/17 21:00 07/05/17 21:13 Sennosides (Senna Liq) 8.8 mg DAILY PO 06/28/17 09:00 07/06/17 09:55 Pantoprazole Sodium (Protonix) 40 mg DAILY PO 07/01/17 09:00 07/06/17 09:55 Insulin Human Regular (NovoLIN R SUPPLEMENTAL SCALE) 1 ACHS SQ 07/02/17 12:00 07/07/17 12:00 Prednisone (Deltasone) 20 mg BID PO 07/02/17 21:00 Future Hold 07/06/17 09:55 Furosemide (Lasix Inj) 20 mg BID@09,18 IV PUSH 07/03/17 09:00 07/07/17 18:07 Lactulose (Lactulose Liq) 30 ml BID PO 07/04/17 09:00 07/06/17 09:56 Albuterol/ Ipratropium (Duoneb Neb) 1 ampule Q4HR NEB PRN INH SHORTNESS OF BREATH 07/05/17 17:00 07/06/17 20:26 Piperacillin Sod/ Tazobactam Sod 50 ml @ 200 mls/hr Q6HR IV 07/06/17 18:00 07/08/17 06:40 Methylprednisolone Sodium Succinate (SoluMEDROL INJ) 40 mg Q12HR IV PUSH 07/06/17 21:00 07/07/17 20:23 Objective Remarks GENERAL: chronically ill male upright in bed with NGT to LIWS and FM in place. SKIN: Warm and dry. HEAD: Normocephalic. EYES: No injection or drainage. NECK: Supple, trachea midline. CARDIOVASCULAR: Regular rate and rhythm RESPIRATORY: anterior yates clear. GASTROINTESTINAL: Abdomen mildly distended. EXTREMITIES: No cyanosis NEUROLOGICAL: awake and alert, normal speech. Assessment/Plan Problem List: (1) Pancytopenia ICD Codes: D61.818 - Other pancytopenia Plan: 07/08/17: platelet count 89K today. continue to hold Gleevac. 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 hematology consulted for pancytopenia Attending Statement The exam, history, and the medical decision-making described in the above note were completed with the assistance of the mid-level provider. I reviewed and agree with the findings presented. I attest that I had a [id number] encounter with the patient on the same day, and personally performed and documented my assessment and findings in the medical record. Patient feels miserable Still has ileus Platelets are 89 Hold Mira Garcia Jul 08, 2017 09:01 Fabrice Patel MD Jul 09, 2017 00:29
[2017-07-08 09:07] LABS: BANDS 20 % (0-6); LYMPHOCYTES 9 % (9-44); MONOCYTES 7 % (0-8); NEUTROPHIL # MANUAL DIFF 4.9 TH/MM3 (1.8-7.7); PLASMA CELLS 1 % (0-0); POLYS (SEG NEUTROPHILS) 63 % (16-70)
[2017-07-08 09:08] LABS: TOXIC GRANULATION 1+ (NORMAL); TOXIC VACUOLATION PRESENT (NONE SEEN)
--- NOTE | 2017-07-08 10:25 | HHI.HCPN ---
Reason for visit a. To assist with evaluation and management of symptoms including: dyspnea, pain, n/v/constipation b. To assist medical decision maker(s) with: better understanding of current medical conditions; weighing benefits/burdens of medical treatment options; making medical treatment decisions. Subjective/Interval History Pt seen today to follow up on comfort, goals. Has been moved to oncology unit. Labs stable, Plt 89.NGT output decreased, NGT d /c this am. On 31% venturi mask, RT weaning to NC at time of my exam. Patient seen in room son, grandson, at bedside. Nurse also present during some of our conversation. Patient is alert, mostly oriented. Indicates he is feeling much better today compared to yesterday feels good to have tube out of his nose and he is glad to be off of facemask O2. He endorses he sat on the side of the bed for a little bit with his son. Continues to have what he describes as sciatica pain to his left hip which limits his his ability to get out of bed. Son wonders if they can have a steroid injection while the patient is here in the hospital to help with the pain. Advised that typically joint injections of that nature are not done during acute hospitalization. Further review oral pain regimen with risks/ benefits related to pain relief versus sedating effects. For now they wish to keep regimen as is as they do not wish to increase patient sedation or lethargy , they want to encourage him to maximize his awakeness and participation. Exploration of current conditions, treatments, overall prognosis. Further exploration of CODE STATUS patient more participative today. Patient endorses that he would not want CPR or to be on a mechanical vent, family supportive of DNR status if that is the patient wishes. All questions answered, they have palliative contact information. For now they wish to maximize ongoing treatments to try to improve patient health enough to return home, goes aggressive short of resuscitation. . Advance Directives Living Will: Completed, but not made available Health Care Surrogate: Completed, but not made available Objective Vital Signs Date Time Temp Pulse Resp B/P (MAP) Pulse Ox O2 Delivery O2 Flow Rate FiO2 07/08/17 07:45 97.6 67 24 115/64 (81) 96 07/08/17 06:00 70 07/08/17 05:49 93 Venturi Mask 3.00 31 07/08/17 05:00 66 07/08/17 04:00 67 07/08/17 04:00 97.2 68 20 122/69 (86) 96 07/08/17 03:00 66 07/08/17 02:00 76 07/08/17 01:00 66 07/08/17 00:00 62 07/08/17 00:00 97.4 65 14 125/66 (85) 94 07/07/17 23:00 70 07/07/17 22:00 68 07/07/17 21:00 66 07/07/17 20:00 97.7 71 14 129/57 (81) 94 07/07/17 20:00 72 07/07/17 19:00 70 07/07/17 19:00 94 Venturi Mask 3.00 31 07/07/17 16:14 Venturi Mask 4.00 31 07/07/17 16:00 98.5 76 18 115/61 (79) 93 07/07/17 13:24 95 Venturi Mask 31 07/07/17 12:00 98.3 73 18 132/60 (84) 93 Intake & Output 07/08/17 07/08/17 06:59 18:59 Output Total 525 ml Balance -525 ml Output Urine Total 525 ml # Bowel Movements 1 Physical Exam CONSTITUTIONAL/GENERAL: alert, adequately nourished male. TUBES/LINES/DRAINS: Peripheral IV left upper extremity, NC O2, NG tube to low LIWS SKIN: No jaundice, rashes, or lesions. Few scattered ecchymosis upper extremities. No wounds seen anteriorly. Skin warm, dry.+ Edema bilateral lower extremities. ENT: Hard of hearing. Nose without bleeding or purulent drainage. Lips, mucous membranes dry. + multiple beige cobblestone-like vesicles on surface of tongue and inner lips.? Thrush.. CARDIOVASCULAR: Regular rate and rhythm without murmur. No JVD. Peripheral pulses symmetric.2+ edema bilateral lower legs. RESPIRATORY/CHEST: Symmetric, unlabored respirations. Coarse air movement throughout, diminished bases, expiratory wheezes right lower. GASTROINTESTINAL: Abdomen soft, round, nontender. No palpable masses. No guarding. Bowel sounds normoactive GENITOURINARY: Without palpable bladder distension. Voids to urinal MUSCULOSKELETAL: Extremities without clubbing, cyanosis. 2+ edema bilateral lower legs, 1+ edema BUE. No joint tenderness or effusion noted. No mottling or clubbing. NEUROLOGICAL: awake, Mostly oriented though forgetful at times. Some limited insight, forgetful. Moves all 4 extremities, generally cooperative. PSYCHIATRIC: No obvious anxiety/depression. Diagnostic Tests Laboratory Laboratory Tests Test 07/05/17 10:31 07/06/17 02:08 07/07/17 06:47 07/07/17 10:22 Lactic Acid Level 1.2 mmol/L (0.4-2.0) White Blood Count 5.1 TH/MM3 (4.0-11.0) 5.5 TH/MM3 (4.0-11.0) Red Blood Count 2.87 MIL/MM3 (4.50-5.90) 2.86 MIL/MM3 (4.50-5.90) Hemoglobin 9.6 GM/DL (13.0-17.0) 9.6 GM/DL (13.0-17.0) Hematocrit 27.6 % (39.0-51.0) 27.7 % (39.0-51.0) Mean Corpuscular Volume 96.2 FL (80.0-100.0) 96.8 FL (80.0-100.0) Mean Corpuscular Hemoglobin 33.4 PG (27.0-34.0) 33.6 PG (27.0-34.0) Mean Corpuscular Hemoglobin Concent 34.7 % (32.0-36.0) 34.7 % (32.0-36.0) Red Cell Distribution Width 22.5 % (11.6-17.2) 22.2 % (11.6-17.2) Platelet Count 89 TH/MM3 (150-450) 87 TH/MM3 (150-450) Mean Platelet Volume 8.5 FL (7.0-11.0) 8.8 FL (7.0-11.0) Neutrophils (%) (Auto) 88.3 % (16.0-70.0) 89.6 % (16.0-70.0) Lymphocytes (%) (Auto) 7.5 % (9.0-44.0) 8.1 % (9.0-44.0) Monocytes (%) (Auto) 4.2 % (0.0-8.0) 2.2 % (0.0-8.0) Eosinophils (%) (Auto) 0.0 % (0.0-4.0) 0.0 % (0.0-4.0) Basophils (%) (Auto) 0.0 % (0.0-2.0) 0.1 % (0.0-2.0) Neutrophils # (Auto) 4.5 TH/MM3 (1.8-7.7) 5.0 TH/MM3 (1.8-7.7) Lymphocytes # (Auto) 0.4 TH/MM3 (1.0-4.8) 0.4 TH/MM3 (1.0-4.8) Monocytes # (Auto) 0.2 TH/MM3 (0-0.9) 0.1 TH/MM3 (0-0.9) Eosinophils # (Auto) 0.0 TH/MM3 (0-0.4) 0.0 TH/MM3 (0-0.4) Basophils # (Auto) 0.0 TH/MM3 (0-0.2) 0.0 TH/MM3 (0-0.2) CBC Comment AUTO DIFF AUTO DIFF Differential Total Cells Counted 100 100 Neutrophils % (Manual) 63 % (16-70) 52 % (16-70) Band Neutrophils % 26 % (0-6) 34 % (0-6) Lymphocytes % 7 % (9-44) 11 % (9-44) Monocytes % 4 % (0-8) 3 % (0-8) Neutrophils # (Manual) 4.5 TH/MM3 (1.8-7.7) 4.7 TH/MM3 (1.8-7.7) Differential Comment FINAL DIFF MANUAL FINAL DIFF MANUAL Toxic Granulation 1+ (NORMAL) 1+ (NORMAL) Dohle Bodies PRESENT (NONE SEEN) Platelet Estimate LOW (NORMAL) LOW (NORMAL) Platelet Morphology Comment NORMAL (NORMAL) NORMAL (NORMAL) Ovalocytes 1+ (NORMAL) Blood Urea Nitrogen 32 MG/DL (7-18) 35 MG/DL (7-18) Creatinine 1.88 MG/DL (0.60-1.30) 1.98 MG/DL (0.60-1.30) Random Glucose 162 MG/DL (74-106) 155 MG/DL (74-106) Calcium Level 7.8 MG/DL (8.5-10.1) 7.6 MG/DL (8.5-10.1) Magnesium Level 1.6 MG/DL (1.5-2.5) 1.9 MG/DL (1.5-2.5) Sodium Level 144 MEQ/L (136-145) 144 MEQ/L (136-145) Potassium Level 3.9 MEQ/L (3.5-5.1) 3.8 MEQ/L (3.5-5.1) Chloride Level 106 MEQ/L (98-107) 106 MEQ/L (98-107) Carbon Dioxide Level 30.5 MEQ/L (21.0-32.0) 31.0 MEQ/L (21.0-32.0) Anion Gap 8 MEQ/L (5-15) 7 MEQ/L (5-15) Estimat Glomerular Filtration Rate 35 ML/MIN (>89) 33 ML/MIN (>89) Test 07/08/17 06:18 White Blood Count 5.9 TH/MM3 (4.0-11.0) Red Blood Count 2.92 MIL/MM3 (4.50-5.90) Hemoglobin 9.5 GM/DL (13.0-17.0) Hematocrit 28.4 % (39.0-51.0) Mean Corpuscular Volume 97.3 FL (80.0-100.0) Mean Corpuscular Hemoglobin 32.5 PG (27.0-34.0) Mean Corpuscular Hemoglobin Concent 33.3 % (32.0-36.0) Red Cell Distribution Width 21.8 % (11.6-17.2) Platelet Count 89 TH/MM3 (150-450) Mean Platelet Volume 9.1 FL (7.0-11.0) CBC Comment AUTO DIFF Differential Total Cells Counted 100 Neutrophils % (Manual) 63 % (16-70) Band Neutrophils % 20 % (0-6) Lymphocytes % 9 % (9-44) Monocytes % 7 % (0-8) Neutrophils # (Manual) 4.9 TH/MM3 (1.8-7.7) Differential Comment FINAL DIFF MANUAL Plasma Cells 1 % (0-0) Toxic Granulation 1+ (NORMAL) Toxic Vacuolation PRESENT (NONE SEEN) Dohle Bodies (NONE SEEN) Platelet Estimate LOW (NORMAL) Platelet Morphology Comment NORMAL (NORMAL) Blood Urea Nitrogen 40 MG/DL (7-18) Creatinine 1.92 MG/DL (0.60-1.30) Random Glucose 111 MG/DL (74-106) Total Protein 5.2 GM/DL (6.4-8.2) Calcium Level 7.4 MG/DL (8.5-10.1) Magnesium Level 2.0 MG/DL (1.5-2.5) Sodium Level 147 MEQ/L (136-145) Potassium Level 3.7 MEQ/L (3.5-5.1) Chloride Level 108 MEQ/L (98-107) Carbon Dioxide Level 31.8 MEQ/L (21.0-32.0) Anion Gap 7 MEQ/L (5-15) Estimat Glomerular Filtration Rate 34 ML/MIN (>89) Protein Corrected Calcium 8.5 MG/DL (8.5-10.1) Result Diagram: 07/08/1718 07/08/17 0618 Microbiology Microbiology Date/Time Source Procedure Growth Status 07/08/17 06:32 Blood Peripheral Aerobic Blood Culture Pending Received 07/08/17 06:32 Blood Peripheral Anaerobic Blood Culture Pending Received 07/08/17 06:18 Blood Peripheral Aerobic Blood Culture Pending Received 07/08/17 06:18 Blood Peripheral Anaerobic Blood Culture Pending Received 07/06/17 02:13 Blood Peripheral Aerobic Blood Culture - Preliminary NO GROWTH IN 1 DAY Resulted 07/06/17 02:13 Blood Peripheral Anaerobic Blood Culture - Preliminary NO GROWTH IN 1 DAY Resulted 07/06/17 02:08 Blood Peripheral Aerobic Blood Culture - Preliminary Klebsiella Pneumoniae Resulted 07/06/17 02:08 Blood Peripheral Anaerobic Blood Culture - Preliminary NO GROWTH IN 1 DAY Resulted 07/05/17 21:00 Sputum Expectorated Sputum Gram Stain - Final Complete 07/05/17 21:00 Sputum Culture - Final Klebsiella Pneumoniae Pseudomonas Aeruginosa Complete Imaging Last Impressions Abdomen X-Ray 07/08/17 0600 Signed Impressions: Service Date/Time: Saturday, July 08, 2017 04:09 - CONCLUSION: Negative KUB. Alli Schroeder MD Abdomen/Pelvis CT 07/05/17 0000 Signed Impressions: Service Date/Time: Wednesday, July 05, 2017 15:06 - CONCLUSION: 1. Left lower lobe consolidation. 2. Dilated loops of proximal and mid small bowel. 3. Stable distal abdominal aortic aneurysm. 4. Stable sigmoid diverticulosis without evidence of diverticulitis. David Gutierrez MD Chest X-Ray 06/29/17 0000 Signed Impressions: Service Date/Time: Thursday, June 29, 2017 08:22 - CONCLUSION: Mild bibasilar atelectasis. Mild compensated and unchanged cardiomegaly. Alli Hansen MD Hepatobiliary Scan Nuclear Medicine 06/25/17 0000 Signed Impressions: Service Date/Time: Sunday, June 25, 2017 10:43 - CONCLUSION: 1. No evidence for cystic duct obstruction. 2. Biliary enteric reflux. Braulio Sellers MD Assessment and Plan Disease Oriented Problem List: (1) CKD (chronic kidney disease), stage III (2) Acute renal failure (3) Hypotension (4) Severe sepsis (5) Diverticulosis (6) Chronic systolic heart failure (7) CML (chronic myelocytic leukemia) (8) Pancytopenia (9) COPD (chronic obstructive pulmonary disease) (10) Diabetes mellitus Symptom Scale: (1) Dyspnea (2) Pain (3) Nausea (4) Constipation (5) Fatigue Pertinent Non-Medical Issues Psychosocial:lives at home with his of 61 years. Originally from [place] moved to [place] in the late . His adult children and grandchildren still reside in [place]. Retired from [employer]. Spiritual:Does not indicate any spiritual/religion preference does not want shop girl visits..( later indicates that he would in fact want shop girl visits and requests them-she indicates that they have no particular affiliation but believes in God and would want to support) Legal: Patient is lethargic, alertness fluctuates, he seems to have on some understanding/insight; likely would best be supported by shared decision-making by either his or whomever is designated healthcare surrogate. Ethical issues impacting care: Important Contacts Jazzy Tabares [phone] . Prognosis This patient was admitted for nausea vomiting and severe abdominal pain. Along his course he is found to have significant hypotension requiring aggressive fluid resuscitation. Sepsis workup essentially negative though he has had ongoing GI pathology. He continues to have GI distention and ileus. May have pleural effusion, has had increased FiO2 requirements. Underlying COPD. Overall prognosis to recover to prior level of independence is guarded patient may require rehabilitation following this acute hospitalization. Additionally patient is very high risk for further complications and setbacks and decline secondary to his advanced age, limited desire to participate, and multiple medical issues. . Code Status: Full Code Plan * Legal decision maker:Patient is lethargic at times, alertness fluctuates, he seems to have on some understanding/insight; likely would best be supported by shared decision-making by his . * Goals: For now they wish to maximize ongoing treatments to try to improve patient health enough to return home, goes aggressive short of resuscitation. * CODE STATUS: DNR * SYMPTOMS: --Dyspnea-CXR 06/29 with mild bibasilar atelectasis; has remained acutely hospitalized, increased FiO2 requirements currently requiring 50% FiO2-- today weaned to NC. Abdomen pelvis CT from 07/05 indicative of lower lobe consolidation. Has not been utilizing incentive spirometry. Has not been out of bed or ambulating regularly. Underlying history of COPD O2 dependent at night and utilized O2 as needed during the day. High risk for further respiratory decline secondary to acute illness and underlying medical comorbidities. Patient denies any dyspnea today; endorses breathing overall feeling fine --Pain--patient endorses hip pain as well as abdominal pain unable to further qualify for me today. Abdominal pain probably secondary to ileus. 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 He has been on methadone outpatient though he is unable to further describe for me how long he has been on this or who prescribed for him. For now will monitor ongoing prn requirements further recommendations or titration pending patient ability to qualify pain; as well as prn acquired/efficacy --Nausea/vomiting-patient with intermittent episodes of nausea and vomiting 2 /2 ileus, abdominal pathology. Some relief with NG tube in place NG tube with moderate amount of output though patient wishes to have NG removed as soon as medically possible. Out put decreased, KUB neg for ileus, NGT d/c today. Patient denies any nausea today --Constipation-patient with intermittent episodes of nausea and vomiting 2/2 ileus, abdominal pathology. Some relief with NG tube in place NG tube with moderate amount of output though patient wishes to have NG removed as soon as medically possible. GI following. Last BM 07/05. Patient has intermittently refused bowel regimen, has received Relistor as well as various laxatives during this hospitalization. Out put decreased, KUB neg for ileus, NGT d/c today. --Fatigue/generalized weakness-generalized deconditioning during hospital course, + ileus, pulmonary effusion, activity further limited by chronic comorbid conditions COPD, now with 13 day hospitalization and has intermittently refused to participate with PT. Likely require ongoing PT for reconditioning and possibly rehabilitation at discharge. --? Oral thrush- painful lesions on tongue. * Palliative care will continue to follow during hospital course as condition evolves, to assist patient/decision-maker with understanding of medical conditions, weighing benefits/burdens of treatment options, for clarification of goals of treatment. Additionally will assist with any symptoms of palliative concern Time Spent Total Floor Time (mins): 30 (Chart review, PE, discussion with family and patient) Attestation To help prompt me to consider important information that might be impacting today's encounter and assessment, information from prior notes written by myself or my colleagues may have been "brought forward" into today's note. My signature on this note, however, is an attestation that I personally performed the exam, history, and/or decision-making noted today, and, unless otherwise indicated, the interactions with patient, family, and staff as well as the review of records all occurred today. I also attest that the listed assessment and stated plan reflect my best clinical judgment today based on the combination of historical information, prior notes, and today's exam/ interactions. When time spent is documented, it refers only to time spent today by the signer, or if indicated, combined time spent today by collaborating physician/nurse practitioner. Rashmi Collazo Jul 08, 2017 10:25
[2017-07-08] MEDS: FUROSEMIDE 20 MG/2 ML VIAL IV PUSH SCH ×2 (10:28→18:15)
[2017-07-08] MEDS: methylPREDNISolone SOD SUCC 40 MG/1 ML VIAL IV PUSH SCH ×2 (10:29→21:33)
--- NOTE | 2017-07-08 11:01 | HHI.PR ---
Subjective Remarks Follow-up for ileus, left lower lobe pneumonia. Patient is currently doing well. He denies any abdominal pain, chest pain. He would like to discontinue NG tube and mask. No fever or chills. Objective Vitals Vital Signs Date Time Temp Pulse Resp B/P (MAP) Pulse Ox O2 Delivery O2 Flow Rate FiO2 07/08/17 07:45 97.6 67 24 115/64 (81) 96 07/08/17 06:00 70 07/08/17 05:49 93 Venturi Mask 3.00 31 07/08/17 05:00 66 07/08/17 04:00 67 07/08/17 04:00 97.2 68 20 122/69 (86) 96 07/08/17 03:00 66 07/08/17 02:00 76 07/08/17 01:00 66 07/08/17 00:00 62 07/08/17 00:00 97.4 65 14 125/66 (85) 94 07/07/17 23:00 70 07/07/17 22:00 68 07/07/17 21:00 66 07/07/17 20:00 97.7 71 14 129/57 (81) 94 07/07/17 20:00 72 07/07/17 19:00 70 07/07/17 19:00 94 Venturi Mask 3.00 31 07/07/17 16:14 Venturi Mask 4.00 31 07/07/17 16:00 98.5 76 18 115/61 (79) 93 07/07/17 13:24 95 Venturi Mask 31 07/07/17 12:00 98.3 73 18 132/60 (84) 93 I/O 07/07/17 07/07/17 07/07/17 07/08/17 07/08/17 07/08/17 07:00 15:00 23:00 07:00 15:00 23:00 Intake Total 100 ml 0 ml Output Total 1050 ml 200 ml 500 ml 325 ml Balance -950 ml -200 ml -500 ml -325 ml Intake Oral 0 ml 0 ml IV Total 100 ml Output Urine Total 1050 ml 200 ml 200 ml 325 ml Stool Total 100 ml Gastric Drainage Total 200 ml # Voids 1 # Bowel Movements 0 1 1 Result Diagram: 11/28/17 0618 11/28/17 0618 Imaging Last Impressions Abdomen X-Ray 07/08/17 0600 Signed Impressions: Service Date/Time: Saturday, July 08, 2017 04:09 - CONCLUSION: Negative KUB. Alli Schroeder MD Abdomen/Pelvis CT 07/05/17 0000 Signed Impressions: Service Date/Time: Wednesday, July 05, 2017 15:06 - CONCLUSION: 1. Left lower lobe consolidation. 2. Dilated loops of proximal and mid small bowel. 3. Stable distal abdominal aortic aneurysm. 4. Stable sigmoid diverticulosis without evidence of diverticulitis. David Gutierrez MD Chest X-Ray 06/29/17 0000 Signed Impressions: Service Date/Time: Thursday, June 29, 2017 08:22 - CONCLUSION: Mild bibasilar atelectasis. Mild compensated and unchanged cardiomegaly. Alli Hansen MD Hepatobiliary Scan Nuclear Medicine 06/25/17 0000 Signed Impressions: Service Date/Time: Sunday, June 25, 2017 10:43 - CONCLUSION: 1. No evidence for cystic duct obstruction. 2. Biliary enteric reflux. Braulio Sellers MD Objective Remarks GENERAL: Alert, NAD. SKIN: Warm and dry. HEAD: Normocephalic. EYES: No scleral icterus. No injection or drainage. NECK: Supple, trachea midline. No JVD or lymphadenopathy. CARDIOVASCULAR: Regular rate and rhythm without murmurs, gallops, or rubs. RESPIRATORY: Moderate air entry. No appreciable wheezing. GASTROINTESTINAL: Abdomen soft, non-tender, nondistended. MUSCULOSKELETAL: No cyanosis. 2+ lower extremity edema. BACK: Nontender without obvious deformity. No CVA tenderness. Procedures Echo 06/26/2017 Mildly dilated left ventricle. The left ventricular systolic function is mildly reduced with an estimated ejection fraction in the range of 45- 50%. Wall thickness is normal. A pacemaker wire is noted. There is a pacemaker wire present in the right atrial cavity. [id number] mitral valve regurgitation. There is trace tricuspid valve regurgitation. A/P Problem List: (1) Diverticulosis ICD Code: K57.90 - Diverticulosis of intestine, part unspecified, without perforation or abscess without bleeding (2) ALEJANDRA (obstructive sleep apnea) ICD Code: G47.33 - Obstructive sleep apnea (adult) (pediatric) (3) Acute respiratory failure ICD Code: J96.00 - Acute respiratory failure, unspecified whether with hypoxia or hypercapnia (4) Acute kidney injury ICD Code: N17.9 - Acute kidney failure, unspecified (5) Thrombocytopenia ICD Code: D69.6 - Thrombocytopenia, unspecified (6) Macrocytic anemia ICD Code: D53.9 - Nutritional anemia, unspecified (7) Leukopenia ICD Code: D72.819 - Decreased white blood cell count, unspecified (8) Diabetes mellitus ICD Code: E11.9 - Type 2 diabetes mellitus without complications (9) Chronic systolic heart failure ICD Code: I50.22 - Chronic systolic (congestive) heart failure Assessment and Plan Mr. Tabares is an 82-year-old male who was admitted on 06/24/2017 due to abdominal pain. He complained of right upper and lower quadrant abdominal pain radiating to his back. Patient was found to be hypotensive and received 4 L of normal saline. Lactate was essentially normal. CT abdomen pelvis showed diverticulosis, edematous gallbladder with some stones. Patient received vancomycin and Zosyn in the emergency department. He was managed in the ICU and required Levophed for hypotension. He had acute kidney injury as well which improved gradually. Abdominal pain Ileus - KUB today negative. Patient reports no abdominal pain. There is no fluid collection from NG tube. - We will discontinue NG tube today. - Advance diet as tolerated. - Cont. Lactulose, Senna, Pericolace, Dulcolax supp - Patient is on methadone 2.5 mg twice a day and morphine 2 mg IV every 3 hours when necessary. - Also continue Protonix 40 mg by mouth daily. Pancytopenia CML - Heme/onc following. - Gleevac outpatient, currently on hold. - No anti-coagulation due to Cytopenia. HIT negative. Probable hospital-acquired pneumonia - Previous chest x-rays and CT abdomen pelvis did not identify any lung infiltrates. - Infectious disease followed patient and signed off on 06/27/2017. Infectious disease discontinued Zosyn and advised monitoring off antibiotics. - Currently patient is on Zosyn. No leukocytosis, patient remains afebrile. - We'll ask infectious disease to get recommendation for antibiotics. We could consider Levaquin for 7 days. 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 Nephrology is following. - Chronic systolic congestive heart failure - Echo from this admission shows ejection fraction 45-50% - Continue Lasix IV 40 mg twice a day. Full code. No anti-coagulation due to thrombocytopenia, hematology recommendations. Discharge plan: Palliative care team consulted. PT recommends rehab placement. Problem Qualifiers (1) Diverticulosis: (2) Acute respiratory failure: Qualified Codes: J96.02 - Acute respiratory failure with hypercapnia (3) Leukopenia: Qualified Codes: D72.819 - Decreased white blood cell count, unspecified (4) Diabetes mellitus: Qualified Codes: E11.8 - Type 2 diabetes mellitus with unspecified complications Alison Araujo DO Jul 08, 2017 11:01 am
[2017-07-08] MEDS: PANTOPRAZOLE SOD 40 MG DELAYED RELEASE TAB PO SCH (15:02)
[2017-07-08] MEDS: AMIODARONE 200 MG TAB PO SCH (15:02)
--- NOTE | 2017-07-08 19:06 | HHI.NPPN ---
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 I was called to see the patient because of elevated BUN and creatinine. Additional Remarks Patient is alert, feeling better, drinking more fluid. Objective Data Data Vital Signs Date Time Temp Pulse Resp B/P (MAP) Pulse Ox O2 Delivery O2 Flow Rate FiO2 07/08/17 18:05 98.8 79 22 169/78 (108) 98 07/08/17 11:46 98.2 72 20 133/81 (98) 99 07/08/17 11:18 98 Nasal Cannula 4.00 07/08/17 07:45 97.6 67 24 115/64 (81) 96 07/08/17 06:00 70 07/08/17 05:49 93 Venturi Mask 3.00 31 07/08/17 05:00 66 07/08/17 04:00 67 07/08/17 04:00 97.2 68 20 122/69 (86) 96 07/08/17 03:00 66 07/08/17 02:00 76 07/08/17 01:00 66 07/08/17 00:00 62 07/08/17 00:00 97.4 65 14 125/66 (85) 94 07/07/17 23:00 70 07/07/17 22:00 68 07/07/17 21:00 66 07/07/17 20:00 97.7 71 14 129/57 (81) 94 07/07/17 20:00 72 -: 07/08/17 0618 07/08/17 0618 Microbiology 07/08/17 Aerobic Blood Culture, Received Pending 07/08/17 Anaerobic Blood Culture, Received Pending 07/08/17 Aerobic Blood Culture, Received Pending 07/08/17 Anaerobic Blood Culture, Received Pending Physical Exam General Appearance: No Acute Distress, Comfortable Eyes Eye Exam: Pupils Equal Throat Throat Exam: Oral Mucosa [place] & Moist Neck Neck Exam: Neck Supple Pulmonary Resp Exam: Breath Sounds Equal, No Distress, Rhonchi, Sputum, Decreased Bases Cardiology CV Exam: Regular, Normal Sinus Rhythm Gastrointestinal/Abdomen GI Exam: Soft, Non-Tender, Bowel Sounds Present Extremeties Extremities Exam: Moderate Edema, Pitting Edema, Dependent Edema Neurologic Neuro Exam: Alert, Awake, Oriented Psychiatric Psych Exam: Appropriate Responses Assessment/Plan Assessment Summary: LEESA/Acute Renal Failure, Hypertension, CKD Stage IV Problem List: (1) COPD (chronic obstructive pulmonary disease) ICD Codes: J44.9 - Chronic obstructive pulmonary disease, unspecified Status: Chronic (2) Bronchitis ICD Codes: J40 - Bronchitis, not specified as acute or chronic Status: Acute (3) HTN (hypertension) ICD Codes: I10 - Essential (primary) hypertension Status: Chronic (4) Diabetes mellitus ICD Codes: E11.9 - Type 2 diabetes mellitus without complications (5) Acute respiratory failure ICD Codes: J96.00 - Acute respiratory failure, unspecified whether with hypoxia or hypercapnia (6) Severe sepsis ICD Codes: A41.9 - Sepsis, unspecified organism; R65.20 - Severe sepsis without septic shock Status: Acute (7) Acute kidney injury ICD Codes: N17.9 - Acute kidney failure, unspecified Plan Patient has been non oliguric. Has Chronic kidney disease, possibly stage 3- 4. Now develop LEESA. K is normal, on Zosyn. ID is following. CT scan showed the ileus NG tube Creatinine is stable at1.9. Continue diuretics, edema is improving. Increase Lasix to 40 mg BID as weight not decreasing. Problem Qualifiers (1) Diabetes mellitus: Qualified Codes: E11.8 - Type 2 diabetes mellitus with unspecified complications (2) Acute respiratory failure: Qualified Codes: J96.02 - Acute respiratory failure with hypercapnia Bismark Woods MD Jul 08, 2017 19:06
[2017-07-08] MEDS: BISACODYL EC 5 MG TABEC PO SCH (21:33)
[2017-07-09] VITALS (10 sets, daily range): BP systolic 127–152; BP diastolic 68–86; PULSE 53–79; RESP 16–21; TEMP 97.7–98.5; O2SAT 96–100
[2017-07-09] MEDS: CHLORHEXIDINE GLUCONATE 2 % 1 PACK (2 CLOTHS) TOP SCH (04:28)
[2017-07-09] MEDS: PIPERACIL-TAZO 3.375 GM PREMIX 50 ML IV SCH ×3 (05:28→18:18)
[2017-07-09] MEDS: INSULIN NovoLIN REGULAR SUPPLEMENTAL SCALE SQ SCH ×4 (08:00→22:16)
[2017-07-09] MEDS ORDERED: NYSTAT/DIPHENHY/LIDO MOUTHWASH (Adult) 120ML SWISH-SWAL PRN (08:00)
[2017-07-09] MEDS: NYSTAT/DIPHENHY/LIDO MOUTHWASH (Adult) 120ML SWISH-SWAL SCH ×4 (09:00→21:10)
[2017-07-09] MEDS: SODIUM CHLORIDE 0.9% FLUSH 10 ML FLUSH IV FLUSH SCH ×3 (09:00→21:10)
[2017-07-09] MEDS: PANTOPRAZOLE SOD 40 MG DELAYED RELEASE TAB PO SCH (09:43)
[2017-07-09] MEDS: AMIODARONE 200 MG TAB PO SCH (09:43)
[2017-07-09] MEDS: SUCRALFATE 1 GM/10 ML CUP PO SCH ×4 (09:43→20:59)
[2017-07-09] MEDS: DOCUSATE SODIUM 50 MG/SENNA 8.6 MG TAB PO SCH ×2 (09:44→21:00)
[2017-07-09] MEDS: LACTULOSE SYRUP 20 GM/30 ML CUP PO SCH ×2 (09:44→21:00)
[2017-07-09] MEDS: SENNOSIDES SYRUP 8.8 MG/5 ML CUP PO SCH (09:44)
[2017-07-09] MEDS: methylPREDNISolone SOD SUCC 40 MG/1 ML VIAL IV PUSH SCH ×2 (09:44→20:59)
[2017-07-09] MEDS: FUROSEMIDE 40 MG/4 ML VIAL IV PUSH SCH ×2 (09:45→18:00)
[2017-07-09] MEDS: METHADONE HCL 10 MG/10 ML ORAL SOLUTION PO SCH ×2 (09:46→21:13)
[2017-07-09 10:16] LABS: HEMATOCRIT 31.5 % (39.0-51.0); HEMOGLOBIN 10.3 GM/DL (13.0-17.0); MEAN CELL VOLUME 97.7 FL (80.0-100.0); MEAN CORPUSCULAR HEMOGLOBIN 31.9 PG (27.0-34.0); MEAN CORPUSCULAR HGB CONC 32.7 % (32.0-36.0); MEAN PLATELET VOLUME 9.1 FL (7.0-11.0); PLATELET COUNT 86 TH/MM3 (150-450); RED BLOOD COUNT 3.23 MIL/MM3 (4.50-5.90); RED CELL DISTRIBUTION WIDTH 21.1 % (11.6-17.2)
--- NOTE | 2017-07-09 10:30 | PD.ONC.PN ---
Subjective Subjective Remarks Afebrile overnight. Patient complaining of sore throat. Feeling better without NGT in place and glad to have O2 face mask removed. Objective Data Date Time Temp Pulse Resp B/P (MAP) Pulse Ox O2 Delivery O2 Flow Rate FiO2 07/09/17 05:32 98.2 59 18 151/72 (98) 98 07/09/17 04:22 53 07/09/17 00:14 61 07/09/17 00:00 98.1 66 16 152/85 (107) 98 07/08/17 22:31 16 07/08/17 21:35 98.2 72 18 149/89 (109) 99 07/08/17 21:30 Nasal Cannula 4.00 07/08/17 20:12 67 07/08/17 18:05 98.8 79 22 169/78 (108) 98 07/08/17 16:00 98 4.00 07/08/17 11:46 98.2 72 20 133/81 (98) 99 07/08/17 11:18 98 Nasal Cannula 4.00 07/09/17 07/09/17 07/09/17 07:00 15:00 23:00 Intake Total 200 ml Output Total 400 ml Balance -200 ml Result Diagram: 07/09/1728 07/08/1718 Laboratory Results Laboratory Tests Test 07/09/17 09:28 White Blood Count 7.0 TH/MM3 Red Blood Count 3.23 MIL/MM3 Hemoglobin 10.3 GM/DL Hematocrit 31.5 % Mean Corpuscular Volume 97.7 FL Mean Corpuscular Hemoglobin 31.9 PG Mean Corpuscular Hemoglobin Concent 32.7 % Red Cell Distribution Width 21.1 % Platelet Count 86 TH/MM3 Mean Platelet Volume 9.1 FL CBC Comment AUTO DIFF Hematology Comments Culture Results Microbiology Date/Time Source Procedure Growth Status 07/08/17 06:32 Blood Peripheral Aerobic Blood Culture Pending Resulted 07/08/17 06:32 Blood Peripheral Anaerobic Blood Culture - Final QNS - SEE AEROBE REPORT Resulted 07/08/17 06:18 Blood Peripheral Aerobic Blood Culture Pending Resulted 07/08/17 06:18 Blood Peripheral Anaerobic Blood Culture - Final QNS - SEE AEROBE REPORT Resulted Administered Medications Medications (Trade) Dose Ordered Sig/Sunil Route PRN Reason Start Time Stop Time Status Last Admin Dose Admin Sodium Chloride (NS Flush) 2 ml BID IV FLUSH 06/24/17 21:00 07/09/17 09:46 Ondansetron HCl (Zofran Inj) 4 mg Q6H PRN IV PUSH NAUSEA OR VOMITING 06/24/17 20:30 07/03/17 17:30 Chlorhexidine Gluconate (Chlorhexidine 2% Cloth) Taper DAILY@04 TOP 06/25/17 04:00 06/21/18 03:59 07/01/17 04:00 Senna/Docusate Sodium (Olesya-Colace) 1 tab BID PO 06/24/17 21:00 07/09/17 09:44 Bisacodyl (Dulcolax Supp) 10 mg DAILY PRN RECTAL SEVERE CONSITIPATION 06/24/17 20:30 06/28/17 08:31 Amiodarone HCl (Cordarone) 200 mg DAILY PO 06/25/17 09:00 07/09/17 09:43 Methadone HCl (Methadone Liq) 2.5 mg BID PO 06/24/17 21:00 07/09/17 09:46 Dextrose (D50w (Vial) Inj) 50 ml UNSCH PRN IV PUSH HYPOGLYCEMIA-SEE COMMENTS 06/24/17 20:30 06/24/17 21:15 Sodium Chloride (NS Flush) DAILY IV FLUSH 06/25/17 09:00 07/06/17 09:00 Morphine Sulfate (Morphine Inj) 2 mg Q3H PRN IV PUSH pain 1-5 06/24/17 23:15 07/05/17 18:44 Morphine Sulfate (Morphine Inj) 4 mg Q3H PRN IV PUSH pain 6-10 06/24/17 23:15 07/06/17 02:26 Bisacodyl (Dulcolax Ec) 10 mg HS PO 06/26/17 21:00 07/05/17 21:13 Sennosides (Senna Liq) 8.8 mg DAILY PO 06/28/17 09:00 07/09/17 09:44 Pantoprazole Sodium (Protonix) 40 mg DAILY PO 07/01/17 09:00 07/09/17 09:43 Insulin Human Regular (NovoLIN R SUPPLEMENTAL SCALE) 1 ACHS SQ 07/02/17 12:00 07/08/17 18:15 Prednisone (Deltasone) 20 mg BID PO 07/02/17 21:00 Future Hold 07/06/17 09:55 Lactulose (Lactulose Liq) 30 ml BID PO 07/04/17 09:00 07/09/17 09:44 Albuterol/ Ipratropium (Duoneb Neb) 1 ampule Q4HR NEB PRN INH SHORTNESS OF BREATH 07/05/17 17:00 07/06/17 20:26 Piperacillin Sod/ Tazobactam Sod 50 ml @ 200 mls/hr Q6HR IV 07/06/17 18:00 07/09/17 05:28 Methylprednisolone Sodium Succinate (SoluMEDROL INJ) 40 mg Q12HR IV PUSH 07/06/17 21:00 07/09/17 09:44 Furosemide (Lasix Inj) 40 mg BID@0900,1800 IV PUSH 07/09/17 09:00 07/09/17 09:45 Sucralfate (Carafate Liq) 1 gm ACHS PO 07/09/17 08:00 07/09/17 09:43 Objective Remarks GENERAL: Elderly male sitting up in bed in [facility]. SKIN: Warm and dry. HEAD: Normocephalic. EYES: No injection or drainage. MOUTH: +thrush NECK: Supple, trachea midline. CARDIOVASCULAR: +S1/S2 RESPIRATORY: anterior yates clear. GASTROINTESTINAL: Abdomen mildly distended, non-tender. EXTREMITIES: No cyanosis NEUROLOGICAL: awake and alert, normal speech. moving all extremities. Assessment/Plan Problem List: (1) Pancytopenia ICD Codes: D61.818 - Other pancytopenia Plan: 07/08/17: platelet count remains less than 100K, continue to hold Gleevac. -- Likely due to infection -- No anticoagulation due to thrombocytopenia --HIT negative (2) CML (chronic myelocytic leukemia) ICD Codes: C92.10 - Chronic myeloid leukemia, BCR/ABL-positive, not having achieved remission Status: Chronic Plan: -- Was originally diagnosed in 1998 -- On Gleevec as outpatient -- Currently on hold due to pancytopenia (3) Ileus ICD Codes: K56.7 - Ileus, unspecified Status: Resolved Plan: --primary managing --had BM 07/08 (4) Pneumonia ICD Codes: J18.9 - Pneumonia, unspecified organism Plan: --on Zosyn (5) Candidiasis of mouth and esophagus ICD Codes: B37.81 - Candidal esophagitis; B37.0 - Candidal stomatitis Plan: --started on magic mouthwash Assessment 82 y/o male with history of CML. hematology consulted for pancytopenia Attending Statement The exam, history, and the medical decision-making described in the above note were completed with the assistance of the mid-level provider. I reviewed and agree with the findings presented. I attest that I had a [id number] encounter with the patient on the same day, and personally performed and documented my assessment and findings in the medical record. c/o mouth sores. Has oral candidiasis Had 2 large BM yesterday. start eating again. abd distention has improved. Ileus has resolved. Pt need PT and need to be d/c to rehab for deconditioning. Mira Zepeda Jul 09, 2017 10:30 Fabrice Patel MD Jul 09, 2017 17:42
[2017-07-09 10:33] LABS: BICARBONATE 30.2 MEQ/L (21.0-32.0); CALCIUM 7.4 MG/DL (8.5-10.1); CREATININE 1.9 MG/DL (0.60-1.30)
[2017-07-09 10:50] LABS: CALCIUM-PROTEIN CORRECTED 8.3 MG/DL (8.5-10.1); TOTAL PROTEIN 5.5 GM/DL (6.4-8.2)
[2017-07-09 11:02] LABS: BANDS 5 % (0-6); LYMPHOCYTES 15 % (9-44); MONOCYTES 2 % (0-8); NEUTROPHIL # MANUAL DIFF 5.8 TH/MM3 (1.8-7.7); POLYS (SEG NEUTROPHILS) 78 % (16-70)
--- NOTE | 2017-07-09 11:13 | HHI.NPPN ---
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 I was called to see the patient because of elevated BUN and creatinine. Additional Remarks Patient is alert,has loose BM, and oral thrush, breathing is better. Objective Data Data Vital Signs Date Time Temp Pulse Resp B/P (MAP) Pulse Ox O2 Delivery O2 Flow Rate FiO2 07/09/17 05:32 98.2 59 18 151/72 (98) 98 07/09/17 04:22 53 07/09/17 00:14 61 07/09/17 00:00 98.1 66 16 152/85 (107) 98 07/08/17 22:31 16 07/08/17 21:35 98.2 72 18 149/89 (109) 99 07/08/17 21:30 Nasal Cannula 4.00 07/08/17 20:12 67 07/08/17 18:05 98.8 79 22 169/78 (108) 98 07/08/17 16:00 98 4.00 07/08/17 11:46 98.2 72 20 133/81 (98) 99 07/08/17 11:18 98 Nasal Cannula 4.00 -: 07/09/1728 07/09/17927 Physical Exam General Appearance: No Acute Distress, Comfortable Eyes Eye Exam: Pupils Equal Throat Throat Exam: Oral Mucosa [place] & Moist Neck Neck Exam: Neck Supple Pulmonary Resp Exam: Breath Sounds Equal, No Distress, Rhonchi, Sputum, Decreased Bases Cardiology CV Exam: Regular, Normal Sinus Rhythm Gastrointestinal/Abdomen GI Exam: Soft, Non-Tender, Bowel Sounds Present Extremeties Extremities Exam: Moderate Edema, Pitting Edema, Dependent Edema Neurologic Neuro Exam: Alert, Awake, Oriented Psychiatric Psych Exam: Appropriate Responses Assessment/Plan Assessment Summary: LEESA/Acute Renal Failure, Hypertension, CKD Stage IV Problem List: (1) COPD (chronic obstructive pulmonary disease) ICD Codes: J44.9 - Chronic obstructive pulmonary disease, unspecified Status: Chronic (2) Bronchitis ICD Codes: J40 - Bronchitis, not specified as acute or chronic Status: Acute (3) HTN (hypertension) ICD Codes: I10 - Essential (primary) hypertension Status: Chronic (4) Diabetes mellitus ICD Codes: E11.9 - Type 2 diabetes mellitus without complications (5) Acute respiratory failure ICD Codes: J96.00 - Acute respiratory failure, unspecified whether with hypoxia or hypercapnia (6) Severe sepsis ICD Codes: A41.9 - Sepsis, unspecified organism; R65.20 - Severe sepsis without septic shock Status: Acute (7) Acute kidney injury ICD Codes: N17.9 - Acute kidney failure, unspecified Plan Patient has been non oliguric. Has Chronic kidney disease, possibly stage 3- 4. Now develop LEESA. K is normal, on Zosyn. ID is following. CT scan showed the ileus NG tube Creatinine is stable at1.9. Continue diuretics, edema is improving. Lasix increased, also told to decrease oral fluid intake. Problem Qualifiers (1) Diabetes mellitus: Qualified Codes: E11.8 - Type 2 diabetes mellitus with unspecified complications (2) Acute respiratory failure: Qualified Codes: J96.02 - Acute respiratory failure with hypercapnia Bismark Woods MD Jul 09, 2017 11:13
--- NOTE | 2017-07-09 11:58 | HHI.PR ---
Subjective Remarks Pt feeling better. no worsening SOB, no cp/n/v/. complains of a sore throat. Objective Vitals Vital Signs Date Time Temp Pulse Resp B/P (MAP) Pulse Ox O2 Delivery O2 Flow Rate FiO2 07/09/17 05:32 98.2 59 18 151/72 (98) 98 07/09/17 04:22 53 07/09/17 00:14 61 07/09/17 00:00 98.1 66 16 152/85 (107) 98 07/08/17 22:31 16 07/08/17 21:35 98.2 72 18 149/89 (109) 99 07/08/17 21:30 Nasal Cannula 4.00 07/08/17 20:12 67 07/08/17 18:05 98.8 79 22 169/78 (108) 98 07/08/17 16:00 98 4.00 I/O 07/08/17 07/08/17 07/08/17 07/09/17 07/09/17 07/09/17 07:00 15:00 23:00 07:00 15:00 23:00 Intake Total 990 ml 200 ml Output Total 325 ml 800 ml 400 ml Balance -325 ml 190 ml -200 ml Intake Oral 990 ml 200 ml Output Urine Total 325 ml 800 ml 400 ml # Bowel Movements 1 3 Result Diagram: 07/09/1792707/09/17927 Imaging Last Impressions Abdomen X-Ray 07/08/17 0600 Signed Impressions: Service Date/Time: Saturday, July 08, 2017 04:09 - CONCLUSION: Negative KUB. Alli Schroeder MD Abdomen/Pelvis CT 07/05/17 0000 Signed Impressions: Service Date/Time: Wednesday, July 05, 2017 15:06 - CONCLUSION: 1. Left lower lobe consolidation. 2. Dilated loops of proximal and mid small bowel. 3. Stable distal abdominal aortic aneurysm. 4. Stable sigmoid diverticulosis without evidence of diverticulitis. David Gutierrez MD Chest X-Ray 06/29/17 0000 Signed Impressions: Service Date/Time: Thursday, June 29, 2017 08:22 - CONCLUSION: Mild bibasilar atelectasis. Mild compensated and unchanged cardiomegaly. Alli Hansen MD Hepatobiliary Scan Nuclear Medicine 06/25/17 0000 Signed Impressions: Service Date/Time: Sunday, June 25, 2017 10:43 - CONCLUSION: 1. No evidence for cystic duct obstruction. 2. Biliary enteric reflux. Braulio Sellers MD Objective Remarks GENERAL: Alert, NAD. SKIN: Warm and dry. EYES: EOMI NECK: trachea midline. CARDIOVASCULAR: Regular rate and rhythm without murmurs RESPIRATORY: Moderate air entry. mild exp wheezing. GASTROINTESTINAL: Abdomen soft, non-tender, nondistended. MUSCULOSKELETAL: 2+ lower extremity edema. tender to touch Procedures Echo 06/26/2017 Mildly dilated left ventricle. The left ventricular systolic function is mildly reduced with an estimated ejection fraction in the range of 45- 50%. Wall thickness is normal. A pacemaker wire is noted. There is a pacemaker wire present in the right atrial cavity. [id number] mitral valve regurgitation. There is trace tricuspid valve regurgitation. A/P Problem List: (1) Diverticulosis ICD Code: K57.90 - Diverticulosis of intestine, part unspecified, without perforation or abscess without bleeding (2) ALEJANDRA (obstructive sleep apnea) ICD Code: G47.33 - Obstructive sleep apnea (adult) (pediatric) (3) Acute respiratory failure ICD Code: J96.00 - Acute respiratory failure, unspecified whether with hypoxia or hypercapnia (4) Acute kidney injury ICD Code: N17.9 - Acute kidney failure, unspecified (5) Thrombocytopenia ICD Code: D69.6 - Thrombocytopenia, unspecified (6) Macrocytic anemia ICD Code: D53.9 - Nutritional anemia, unspecified (7) Leukopenia ICD Code: D72.819 - Decreased white blood cell count, unspecified (8) Diabetes mellitus ICD Code: E11.9 - Type 2 diabetes mellitus without complications (9) Chronic systolic heart failure ICD Code: I50.22 - Chronic systolic (congestive) heart failure Assessment and Plan Mr. Tabares is an 82-year-old male who was admitted on 06/24/2017 due to abdominal pain. He complained of right upper and lower quadrant abdominal pain radiating to his back. Patient was found to be hypotensive and received 4 L of normal saline. Lactate was essentially normal. CT abdomen pelvis showed diverticulosis, edematous gallbladder with some stones. Patient received vancomycin and Zosyn in the emergency department. He was managed in the ICU and required Levophed for hypotension. He had acute kidney injury as well which improved gradually. Abdominal pain Ileus - KUB negative. Patient reports no abdominal pain. s/p NG tube. - on clears and advance as tolerated - Cont. Lactulose, Senna, Pericolace, Dulcolax supp - Patient is on methadone 2.5 mg twice a day and morphine 2 mg IV every 3 hours when necessary. -continue Protonix 40 mg by mouth daily. Oral thrush, and pain: Pt having difficulty swallowing because of this - sucralfate was ordered by oncology team. - on nystatin and will add magic mouth wash. Pancytopenia CML - Heme/onc following. - Gleevac outpatient, currently on hold. - No anti-coagulation due to pancytopenia. HIT negative. Probable hospital-acquired pneumonia - Previous chest x-rays and CT abdomen pelvis did not identify any lung infiltrates. - Infectious disease followed patient and signed off on 06/27/2017. Infectious disease discontinued Zosyn and advised monitoring off antibiotics. - Currently patient is on Zosyn. No leukocytosis, patient remains afebrile. - infectious disease was reconsulted and will see pt today. recs for now was to continues zosyn. Encouraged pt to use IS q1hr while awake. 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 Nephrology is following. - Chronic systolic congestive heart failure - Echo from this admission shows ejection fraction 45-50% - Continue Lasix IV 40 mg twice a day. Full code. No anti-coagulation due to thrombocytopenia, hematology recommendations. PT/OT following Discharge Planning Palliative care team following. PT recommends rehab placement. Problem Qualifiers (1) Diverticulosis: (2) Acute respiratory failure: Qualified Codes: J96.02 - Acute respiratory failure with hypercapnia (3) Leukopenia: Qualified Codes: D72.819 - Decreased white blood cell count, unspecified (4) Diabetes mellitus: Qualified Codes: E11.8 - Type 2 diabetes mellitus with unspecified complications Megan Felix MD Jul 09, 2017 11:58
[2017-07-09] MEDS ORDERED: DIPHENHY/LIDO/MAG/ALUM MOUTHWASH (Adult/Peds) 60 ML BTL SWISH-SWAL SCH (12:00)
--- NOTE | 2017-07-09 14:12 | HHI.GIFU ---
Subjective Remarks Working with increased activity and physical therapy today, patient now up in chair Family member present Patient is awake answering questions appropriately and states he is feeling better, tolerating clear liquids Afebrile (Angela Zaidi) Objective Vitals I&O Vital Signs Date Time Temp Pulse Resp B/P (MAP) Pulse Ox O2 Delivery O2 Flow Rate FiO2 07/09/17 13:35 98.5 62 18 132/76 (94) 98 07/09/17 08:30 97.7 59 20 127/73 (91) 100 07/09/17 05:32 98.2 59 18 151/72 (98) 98 07/09/17 04:22 53 07/09/17 00:14 61 07/09/17 00:00 98.1 66 16 152/85 (107) 98 07/08/17 22:31 16 07/08/17 21:35 98.2 72 18 149/89 (109) 99 07/08/17 21:30 Nasal Cannula 4.00 07/08/17 20:12 67 07/08/17 18:05 98.8 79 22 169/78 (108) 98 07/08/17 16:00 98 4.00 I/O 07/08/17 07/08/17 07/08/17 07/09/17 07/09/17 07/09/17 07:00 15:00 23:00 07:00 15:00 23:00 Intake Total 990 ml 200 ml Output Total 325 ml 800 ml 400 ml Balance -325 ml 190 ml -200 ml Intake Oral 990 ml 200 ml Output Urine Total 325 ml 800 ml 400 ml # Bowel Movements 1 3 Laboratory Laboratory Tests Test 07/09/17 09:28 White Blood Count 7.0 Red Blood Count 3.23 Hemoglobin 10.3 Hematocrit 31.5 Mean Corpuscular Volume 97.7 Mean Corpuscular Hemoglobin 31.9 Mean Corpuscular Hemoglobin Concent 32.7 Red Cell Distribution Width 21.1 Platelet Count 86 Mean Platelet Volume 9.1 CBC Comment AUTO DIFF Differential Total Cells Counted 100 Neutrophils % (Manual) 78 Band Neutrophils % 5 Lymphocytes % 15 Monocytes % 2 Neutrophils # (Manual) 5.8 Differential Comment FINAL DIFF MANUAL Platelet Estimate LOW Platelet Morphology Comment NORMAL Basophilic Stippling MOD Hematology Comments Blood Urea Nitrogen 45 Creatinine 1.90 Random Glucose 141 Total Protein 5.5 Calcium Level 7.4 Magnesium Level 2.0 Sodium Level 146 Potassium Level 3.3 Chloride Level 109 Carbon Dioxide Level 30.2 Anion Gap 7 Estimat Glomerular Filtration Rate 34 Protein Corrected Calcium 8.3 Date/Time Source Procedure Growth Status 07/08/17 06:32 Blood Peripheral Aerobic Blood Culture - Preliminary NO GROWTH IN 1 DAY Resulted 07/08/17 06:32 Blood Peripheral Anaerobic Blood Culture - Final QNS - SEE AEROBE REPORT Resulted 07/05/17 21:00 Sputum Expectorated Sputum Gram Stain - Final Complete 07/05/17 21:00 Sputum Culture - Final Klebsiella Pneumoniae Pseudomonas Aeruginosa Complete 06/24/17 15:55 Urine Catheterized Urine Urine Culture - Final NO GROWTH IN 48 HOURS. Complete Imaging Last Impressions Abdomen X-Ray 07/08/17 0600 Signed Impressions: Service Date/Time: Saturday, July 08, 2017 04:09 - CONCLUSION: Negative KUB. Alli Schroeder MD Abdomen/Pelvis CT 07/05/17 0000 Signed Impressions: Service Date/Time: Wednesday, July 05, 2017 15:06 - CONCLUSION: 1. Left lower lobe consolidation. 2. Dilated loops of proximal and mid small bowel. 3. Stable distal abdominal aortic aneurysm. 4. Stable sigmoid diverticulosis without evidence of diverticulitis. David Gutierrez MD Chest X-Ray 06/29/17 0000 Signed Impressions: Service Date/Time: Thursday, June 29, 2017 08:22 - CONCLUSION: Mild bibasilar atelectasis. Mild compensated and unchanged cardiomegaly. Alli Hansen MD Hepatobiliary Scan Nuclear Medicine 06/25/17 0000 Signed Impressions: Service Date/Time: Sunday, June 25, 2017 10:43 - CONCLUSION: 1. No evidence for cystic duct obstruction. 2. Biliary enteric reflux. Braulio Sellers MD Physical Exam HEENT: Normocephalic; atraumatic ,no jaundice, skin color pale CHEST: Breath sounds clear anteriorly and posteriorly with low volumes, no rhonchi CARDIAC: RRR. ABDOMEN: Soft, taut, nontender to tactile stimulation; bowel sounds active X 4 quadrants EXTREMITIES: BLE 2+ edema bilateral HYGIENE COORDINATOR: Alert and oriented times three. (Angela Zaidi) Assessment and Plan Plan ASSESSMENT - Ileus. Resolved, continue Lactulose BID, Senna, Pericolace, Dulcolax. Of note, patient on Morphine and Methadone. NG tube placed initially on admission to [facility]. Pt reports improvement in distension and pain, NG tube now discontinued , patient much more comfortable KUB unremarkable, bowel sounds are now active in all 4 quadrants, patient is tolerating clear liquids without any nausea or vomiting, appetite is returning Bowel movements 2 on 07/08/17. Initially had hard formed stool, followed with loose stools/diarrhea. No BM today as of yet, but abdomen is soft, nontender - GERD, PPI - Anemia. Initially received 2 units of packed RBCs on 07/05, " and now stable at 10.3, hematocrit 31.5 - LEESA, nephrology following - ALEJANDRA, Resp. insuff. Venturi mask initially used for shortness of breath, patient now stable on room air, no active shortness of breath but low volumes noted. Encourage patient to turn cough and deep breathe - DM, CHF, Hx CML with leukopenia, per attending. - Thrush oral, now causing dysphasia and burning in the esophagus. Treatment now with nystatin and Magic mouthwash which is effective. PLAN - Advance diet to full liquids, patient is now on Magic mouthwash and nystatin for his oral thrush, diet can be advanced to soft solid food tomorrow as long as patient is having no difficulty swallowing secondary to his oral thrush - Cont. Lactulose, Senna, Pericolace, Dulcolax supp - PPI - Monitor labs as warranted - Encourage mobility out of bed daily in chair, working with physical therapy - Supportive care - Further recommendations to follow based on results of above - Pt seen and examined by Dr. Saab and myself and this note is written on her behalf (Angela Zaidi) Angela Zaidi Jul 09, 2017 14:12 Viviana Saab MD Jul 09, 2017 20:04
--- NOTE | 2017-07-09 15:09 | HHI.IDPN ---
Subjective Subjective Remarks is a 82 y/o CM with PMHx of chronic myeloid leukemia in 1998. The patient has been on Gleevec and he is in remission per review of record and notes of . Reportedly, the patient's , the patient was having problems with walking for the last two weeks. He then noticed severe constipation. Reportedly he was constipated. His stated that finally moved his bowels but he had a very large bowel movement and he made a mess in the bed on the blankets according to his . She also noticed dark stool most likely consistent with blood. He also noticed abdominal distension and could not walk because of that. He was brought into the emergency room by paramedics. In theemergency room, the patient was evaluated by the ER physician. He did not have any fever but he was hypotensive and his blood pressure was 84/86. CBC showed white count of 3.3, hemoglobin 9, hematocrit is 27 and platelet count is 114, 000. The differential count showed 29% bandemia, 5% metamyelocytes, toxic granulation Dohle bodies. The patient was admitted to the hospital for severe sepsis. The patient had a CT scan of the abdomen and pelvis which showed colonic diverticulosis. Significant inflammatory changes are not seen, a distended gallbladder with suspected tiny stones, definitive inflammatory change around the gallbladder is not seen, a 3.9 cm abdominal aortic aneurysm which is stable. The chest x-ray is negative except it shows chronic interstitial opacities in the lung bases suggestive of interstitial lung disease. He also had a HIDA scan which showed no evidence of cystic duct obstruction, biliary enteric reflux noted. Infectious disease was consulted for severe sepsis. The patient was started on antibiotics, Vancomycin and Zosyn. Antibiotics were stopped and patient was observed clinically. Patient now has Kleb pneumo bacteremia and Kleb pneumo Pneumonia and ID reconsulted. Overnight events reviewed No fever No rash No diarrhea No new complaints Complains on buttock soreness. Antibiotics Zosyn IV Lines Line sites with no e.o infection Past Medical History reviewed Allergies: Coded Allergies: No Known Allergies (Verified , 09/19/15) Objective . Vital Signs Date Time Temp Pulse Resp B/P (MAP) Pulse Ox O2 Delivery O2 Flow Rate FiO2 07/09/17 14:03 Nasal Cannula 07/09/17 13:35 98.5 62 18 132/76 (94) 98 07/09/17 08:30 97.7 59 20 127/73 (91) 100 07/09/17 05:32 98.2 59 18 151/72 (98) 98 07/09/17 04:22 53 07/09/17 00:14 61 07/09/17 00:00 98.1 66 16 152/85 (107) 98 07/08/17 22:31 16 07/08/17 21:35 98.2 72 18 149/89 (109) 99 07/08/17 21:30 Nasal Cannula 4.00 07/08/17 20:12 67 07/08/17 18:05 98.8 79 22 169/78 (108) 98 07/08/17 16:00 98 4.00 . Laboratory Tests Test 07/08/17 06:18 07/09/17 09:28 White Blood Count 5.9 TH/MM3 7.0 TH/MM3 Red Blood Count 2.92 MIL/MM3 3.23 MIL/MM3 Hemoglobin 9.5 GM/DL 10.3 GM/DL Hematocrit 28.4 % 31.5 % Mean Corpuscular Volume 97.3 FL 97.7 FL Mean Corpuscular Hemoglobin 32.5 PG 31.9 PG Mean Corpuscular Hemoglobin Concent 33.3 % 32.7 % Red Cell Distribution Width 21.8 % 21.1 % Platelet Count 89 TH/MM3 86 TH/MM3 Mean Platelet Volume 9.1 FL 9.1 FL CBC Comment AUTO DIFF AUTO DIFF Differential Total Cells Counted 100 100 Neutrophils % (Manual) 63 % 78 % Band Neutrophils % 20 % 5 % Lymphocytes % 9 % 15 % Monocytes % 7 % 2 % Neutrophils # (Manual) 4.9 TH/MM3 5.8 TH/MM3 Differential Comment FINAL DIFF MANUAL FINAL DIFF MANUAL Plasma Cells 1 % Toxic Granulation 1+ Toxic Vacuolation PRESENT Dohle Bodies Platelet Estimate LOW LOW Platelet Morphology Comment NORMAL NORMAL Basophilic Stippling MOD Hematology Comments Laboratory Tests Test 07/08/17 06:18 07/09/17 09:28 Blood Urea Nitrogen 40 MG/DL 45 MG/DL Creatinine 1.92 MG/DL 1.90 MG/DL Random Glucose 111 MG/DL 141 MG/DL Total Protein 5.2 GM/DL 5.5 GM/DL Calcium Level 7.4 MG/DL 7.4 MG/DL Magnesium Level 2.0 MG/DL 2.0 MG/DL Sodium Level 147 MEQ/L 146 MEQ/L Potassium Level 3.7 MEQ/L 3.3 MEQ/L Chloride Level 108 MEQ/L 109 MEQ/L Carbon Dioxide Level 31.8 MEQ/L 30.2 MEQ/L Anion Gap 7 MEQ/L 7 MEQ/L Estimat Glomerular Filtration Rate 34 ML/MIN 34 ML/MIN Protein Corrected Calcium 8.5 MG/DL 8.3 MG/DL Microbiology Date/Time Source Procedure Growth Status 07/08/17 06:32 Blood Peripheral Aerobic Blood Culture - Preliminary NO GROWTH IN 1 DAY Resulted 07/08/17 06:32 Blood Peripheral Anaerobic Blood Culture - Final QNS - SEE AEROBE REPORT Resulted 07/08/17 06:18 Blood Peripheral Aerobic Blood Culture - Preliminary NO GROWTH IN 1 DAY Resulted 07/08/17 06:18 Blood Peripheral Anaerobic Blood Culture - Final QNS - SEE AEROBE REPORT Resulted Imaging Last Impressions Abdomen X-Ray 06/26/17 0000 Signed Impressions: Service Date/Time: June 15:13 - CONCLUSION: Mild air distention of the small bowel and colon in a pattern characteristic of a hypodynamic ileus. Christopher Silva MD Hepatobiliary Scan Nuclear Medicine 06/25/17 0000 Signed Impressions: Service Date/Time: Sunday, June 25, 2017 10:43 - CONCLUSION: 1. No evidence for cystic duct obstruction. 2. Biliary enteric reflux. Braulio Sellers MD Chest X-Ray 06/24/[id number] Signed Impressions: Service Date/Time: Saturday, June 24, 2017 21:28 - CONCLUSION: 1. NG tube at the distal esophagus. This should be advanced. 2. Good placement of a right internal jugular central line. A pneumothorax is not seen. Alli Schroeder MD Abdomen/Pelvis CT 06/24/17 185 Signed Impressions: Service Date/Time: Saturday, June 24, 2017 19:29 - CONCLUSION: 1. Colonic diverticulosis. Significant inflammatory change is not seen. 2. Distended gallbladder with suspected tiny stones. Definite inflammatory change around the gallbladder is not seen on this CT examination. 3. 3.9 cm abdominal aortic aneurysm. This was present previously. Alli Schroeder MD Physical Exam GENERAL: This is a well-nourished, well-developed patient, in no apparent distress. SKIN: No rashes, ecchymoses or lesions. Cool and dry. HEAD: Atraumatic. Normocephalic. No temporal or scalp tenderness. EYES: Pupils equal round and reactive. Extraocular motions intact. No scleral icterus. No injection or drainage. ENT: Nose without bleeding, purulent drainage or septal hematoma. Throat without erythema, tonsillar hypertrophy or exudate. Uvula midline. Airway patent. NECK: Trachea midline. Supple, nontender, no meningeal signs. CARDIOVASCULAR: Regular rate and rhythm without murmurs. RESPIRATORY: Clear to auscultation. Breath sounds equal bilaterally. No wheezes , rales, or rhonchi. GASTROINTESTINAL: Abdomen soft, non-tender, nondistended. MUSCULOSKELETAL: Extremities without clubbing, cyanosis, or edema. NEUROLOGICAL: Awake and alert. Cranial nerves II through XII intact. Motor and sensory grossly within normal limits. Five out of 5 muscle strength in all muscle groups. Normal speech. Buttock: sacral decub noted stage 1. Area of erythema appears to be fungal origin. Psych cooperative Pacemaker site with no e.o infection. Scar clean IV line sites with no e.o infection. Assessment & Plan Remarks Kleb pneumo pneumonia Pseudomonas pneumonia Kleb pneumo bacteremia Fungal intertrigo. On shelter steroids ? stress induced relative insufficiency. Colonic diverticulosis. Recs Continue Zosyn IV for now. Start Nystatin local application. Follow repeat blood cultures. Wound care consult. Recommend boots for legs to prevent pressure ulcers. Follow cultures follow clinically. ECHO with no vegetations. Rosio Mtz MD Jul 09, 2017 15:09
[2017-07-09] MEDS: NYSTATIN 100,000 U/GM OINT 15 GM TUBE TOPICAL SCH ×2 (15:15→22:17)
[2017-07-09] MEDS: NYSTATIN SUSP 500,000 U/5 ML CUP SWISH-SWAL SCH ×3 (15:33→21:00)
--- NOTE | 2017-07-09 18:17 | PD.WCN.NOT ---
Wound Consult Description: Received consult from Edita BROWN and Doctor Rosio Mtz for wound management of sacral, heels and buttocks areas Communicated with: ROGER Tim [facility] and Doctor Felix for orders Recommendation: 1.Please cleanse bilateral buttocks and lower back with soap and water and pat dry. Apply antifungal cream mixed with Calazime barrier cream 50/50 BID.Please leave wounds open to air. 2. Please apply skin prep to R heel BID and leave open to air. 3. Please obtain [place] [facility] bed or if not available please order K 4 bed from [email or web address] [facility]. 4. Turn patient every 2 hours and PRN for comfort and offloading of pressure from nasim prominences 5. Please apply heel raiser boots to bilateral feet to offload pressure from heels. Additional Information: Patient seen on [facility] for evaluation of heels, buttock and sacral areas. Patient is noted with heels floating on pillows . Patient assessed with non blanchable boggy purple discoloration to R heel, indicating deep tissue injury. L heel is noted with blanchable erythema.Skin prep was applied to R heel and left open to air. Heel wound measures 3cm x 6 cm.Patient turned with moderate assistance from ROGER Tim [facility]IC and junior underwriter to R side to reveal buttocks covered with barrier cream. Soft moistened wash cloth was used to to remove some barrier cream from buttocks to reveal three wounds.Two L buttock presents with ~50% pink tissue and 50% subcutaneous tissue.Wound margins are well defined, and wounds have a round shape. Wounds have no active drainage or foul odor Periwound present with blanchable erythema and satellite lesions. L medial buttock wound measures 1cm x 1.1cm x ~0.1cm. L lateral buttock wound measures 1cm x 1.2cm x ~0.1cm. Left wounds open to air. R medial buttock wound presents with 80% pink tissue and ~20% subcutaneous tissue. Wound has no active drainage or foul odor. Wound margins are well defined, and wound also has a round shape. Wound measures 3cm x 2.1cm X~0.1cm .Periwound presents with blanchable erythema and satellite lesions.Applied thick layer of Calazime barrier cream over bilateral buttocks and left wounds open to air. Whit Driver [facility] Jul 09, 2017 18:17
[2017-07-09] MEDS: MICONAZOLE NITRATE 2% CREAM 15 GM TOPICAL SCH (21:00)
[2017-07-09] MEDS: BISACODYL EC 5 MG TABEC PO SCH (21:00)
[2017-07-10] VITALS (12 sets, daily range): BP systolic 110–144; BP diastolic 59–81; PULSE 61–103; RESP 16–20; TEMP 97.3–98.6; O2SAT 92–99
[2017-07-10] MEDS: PIPERACIL-TAZO 3.375 GM PREMIX 50 ML IV SCH ×4 (00:02→18:39)
[2017-07-10] MEDS: CHLORHEXIDINE GLUCONATE 2 % 1 PACK (2 CLOTHS) TOP SCH (04:00)
[2017-07-10] MEDS: NYSTATIN 100,000 U/GM OINT 15 GM TUBE TOPICAL SCH ×3 (05:08→20:51)
[2017-07-10] MEDS: SUCRALFATE 1 GM/10 ML CUP PO SCH ×4 (08:00→20:42)
[2017-07-10] MEDS: DOCUSATE SODIUM 50 MG/SENNA 8.6 MG TAB PO SCH ×2 (09:00→20:54)
[2017-07-10] MEDS: SENNOSIDES SYRUP 8.8 MG/5 ML CUP PO SCH (09:00)
[2017-07-10] MEDS: MICONAZOLE NITRATE 2% CREAM 15 GM TOPICAL SCH ×2 (09:00→20:52)
[2017-07-10] MEDS: NYSTAT/DIPHENHY/LIDO MOUTHWASH (Adult) 120ML SWISH-SWAL SCH ×4 (09:00→20:43)
[2017-07-10] MEDS: SODIUM CHLORIDE 0.9% FLUSH 10 ML FLUSH IV FLUSH SCH ×3 (09:00→20:43)
[2017-07-10] MEDS: LACTULOSE SYRUP 20 GM/30 ML CUP PO SCH (09:00)
[2017-07-10] MEDS: NYSTATIN SUSP 500,000 U/5 ML CUP SWISH-SWAL SCH ×4 (09:18→20:42)
[2017-07-10] MEDS: methylPREDNISolone SOD SUCC 40 MG/1 ML VIAL IV PUSH SCH ×2 (09:19→20:42)
[2017-07-10] MEDS: AMIODARONE 200 MG TAB PO SCH (09:19)
[2017-07-10] MEDS: PANTOPRAZOLE SOD 40 MG DELAYED RELEASE TAB PO SCH (09:19)
[2017-07-10] MEDS: INSULIN NovoLIN REGULAR SUPPLEMENTAL SCALE SQ SCH ×4 (09:20→20:41)
[2017-07-10] MEDS: METHADONE HCL 10 MG/10 ML ORAL SOLUTION PO SCH ×2 (09:22→20:42)
[2017-07-10] MEDS: FUROSEMIDE 40 MG/4 ML VIAL IV PUSH SCH ×2 (09:26→18:39)
--- NOTE | 2017-07-10 09:53 | HHI.PR ---
Subjective Remarks Pt continues to complain of dysphagia. hasn't been able to drink much because of this. Discussed w RN, pt had a bloody BM last night and hemoccult was sent and was positive, this morning had another BM which also was bloody. hemoccult pending. Objective Vitals Vital Signs Date Time Temp Pulse Resp B/P (MAP) Pulse Ox O2 Delivery O2 Flow Rate FiO2 07/10/17 05:10 98.0 61 16 144/70 (94) 99 07/10/17 03:35 63 07/10/17 00:09 64 07/10/17 00:05 98.0 66 16 143/81 (101) 99 07/09/17 22:13 18 07/09/17 21:46 96 Nasal Cannula 4.00 07/09/17 21:15 Nasal Cannula 4.00 31 07/09/17 21:15 98.2 79 21 150/86 (107) 96 07/09/17 20:11 75 07/09/17 16:50 97.8 70 20 142/68 (92) 98 07/09/17 14:03 Nasal Cannula 07/09/17 13:35 98.5 62 18 132/76 (94) 98 I/O 07/09/17 07/09/17 07/09/17 07/10/17 07/10/17 07/10/17 07:00 15:00 23:00 07:00 15:00 23:00 Intake Total 200 ml 1250 ml Output Total 400 ml 500 ml 500 ml Balance -200 ml 750 ml -500 ml Intake Oral 200 ml 1150 ml IV Total 100 ml Output Urine Total 400 ml 500 ml 500 ml # Voids 4 # Bowel Movements 2 Result Diagram: 07/09/1792707/09/17927 Imaging Last Impressions Abdomen X-Ray 07/08/17 0600 Signed Impressions: Service Date/Time: Saturday, July 08, 2017 04:09 - CONCLUSION: Negative KUB. Alli Schroeder MD Abdomen/Pelvis CT 07/05/17 0000 Signed Impressions: Service Date/Time: Wednesday, July 05, 2017 15:06 - CONCLUSION: 1. Left lower lobe consolidation. 2. Dilated loops of proximal and mid small bowel. 3. Stable distal abdominal aortic aneurysm. 4. Stable sigmoid diverticulosis without evidence of diverticulitis. David Gutierrez MD Chest X-Ray 06/29/17 0000 Signed Impressions: Service Date/Time: Thursday, June 29, 2017 08:22 - CONCLUSION: Mild bibasilar atelectasis. Mild compensated and unchanged cardiomegaly. Alli Hansen MD Hepatobiliary Scan Nuclear Medicine 06/25/17 0000 Signed Impressions: Service Date/Time: Sunday, June 25, 2017 10:43 - CONCLUSION: 1. No evidence for cystic duct obstruction. 2. Biliary enteric reflux. Braulio Sellers MD Objective Remarks GENERAL: Alert, NAD. SKIN: Warm and dry. multiple painful wounds noted in buttock area EYES: EOMI NECK: trachea midline. CARDIOVASCULAR: Regular rate and rhythm without murmurs RESPIRATORY: Moderate air entry. mild exp wheezing. GASTROINTESTINAL: Abdomen soft, non-tender, nondistended. MUSCULOSKELETAL: 2+ lower extremity edema. tender to touch, dressings in place. Procedures Echo 06/26/2017 Mildly dilated left ventricle. The left ventricular systolic function is mildly reduced with an estimated ejection fraction in the range of 45- 50%. Wall thickness is normal. A pacemaker wire is noted. There is a pacemaker wire present in the right atrial cavity. [id number] mitral valve regurgitation. There is trace tricuspid valve regurgitation. A/P Problem List: (1) Diverticulosis ICD Code: K57.90 - Diverticulosis of intestine, part unspecified, without perforation or abscess without bleeding (2) ALEJANDRA (obstructive sleep apnea) ICD Code: G47.33 - Obstructive sleep apnea (adult) (pediatric) (3) Acute respiratory failure ICD Code: J96.00 - Acute respiratory failure, unspecified whether with hypoxia or hypercapnia (4) Acute kidney injury ICD Code: N17.9 - Acute kidney failure, unspecified (5) Thrombocytopenia ICD Code: D69.6 - Thrombocytopenia, unspecified (6) Macrocytic anemia ICD Code: D53.9 - Nutritional anemia, unspecified (7) Leukopenia ICD Code: D72.819 - Decreased white blood cell count, unspecified (8) Diabetes mellitus ICD Code: E11.9 - Type 2 diabetes mellitus without complications (9) Chronic systolic heart failure ICD Code: I50.22 - Chronic systolic (congestive) heart failure Assessment and Plan Mr. Tabares is an 82-year-old male who was admitted on 06/24/2017 due to abdominal pain. He complained of right upper and lower quadrant abdominal pain radiating to his back. Patient was found to be hypotensive and received 4 L of normal saline. Lactate was essentially normal. CT abdomen pelvis showed diverticulosis, edematous gallbladder with some stones. Patient received vancomycin and Zosyn in the emergency department. He was managed in the ICU and required Levophed for hypotension. He had acute kidney injury as well which improved gradually. Abdominal pain Ileus - KUB negative. Patient reports no abdominal pain. s/p NG tube. - on clears and advance as tolerated - Cont. Lactulose, Senna, Pericolace, Dulcolax supp - Patient is on methadone 2.5 mg twice a day and morphine 2 mg IV every 3 hours when necessary. -continue Protonix 40 mg by mouth daily. Oral thrush, and pain: Pt having difficulty swallowing because of this - sucralfate was ordered by oncology team. - on nystatin and magic mouth wash w no much improvement. - GI aware and following. Hematochezia -Per RN, pt had two episodes overnight. Hb not available this morning, as pt is a hard stick but lab is sending someone to draw blood soon. Monitor closely. I have notified Dr. Saab. BP stable thus far. f/u Hb. Pancytopenia CML - Heme/onc following. - Gleevac outpatient, currently on hold. - No anti-coagulation due to pancytopenia. HIT negative. Probable hospital-acquired pneumonia - Previous chest x-rays and CT abdomen pelvis did not identify any lung infiltrates. However, repeat CT did show LLL consolidation. Infectious disease reconsulted and recommends IV zosyn for now. f/u repeat blood cx - Encouraged pt to use IS q1hr while awake. Acute kidney injury Chronic kidney disease possibly stage 3-4 - Creatinine is much improved from 4.68 on admission, now down to 1.90. Nephrology is following. - Chronic systolic congestive heart failure - Echo from this admission shows ejection fraction 45-50% - Continue Lasix IV 40 mg twice a day. - Buttock and leg wounds: wound care following and has made recs, appreciate assistance Full code. No anti-coagulation due to thrombocytopenia, hematology recommendations. PT/OT following Discharge Planning Palliative care team following. PT recommends rehab placement. currently on IV abx. ID following Having dysphagia and now hematochezia. GI following. Problem Qualifiers (1) Diverticulosis: (2) Acute respiratory failure: Qualified Codes: J96.02 - Acute respiratory failure with hypercapnia (3) Leukopenia: Qualified Codes: D72.819 - Decreased white blood cell count, unspecified (4) Diabetes mellitus: Qualified Codes: E11.8 - Type 2 diabetes mellitus with unspecified complications Megan Felix MD Jul 10, 2017 09:53
--- NOTE | 2017-07-10 11:17 | HHI.NPPN ---
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 I was called to see the patient because of elevated BUN and creatinine. Additional Remarks Patient is alert,has loose BM, and oral thrush, breathing is better, no has GI bleeding. Objective Data Data Vital Signs Date Time Temp Pulse Resp B/P (MAP) Pulse Ox O2 Delivery O2 Flow Rate FiO2 07/10/17 10:31 20 07/10/17 08:00 69 07/10/17 08:00 94 Nasal Cannula 4.00 07/10/17 08:00 97.6 69 20 139/67 (91) 94 07/10/17 05:10 98.0 61 16 144/70 (94) 99 07/10/17 03:35 63 07/10/17 00:09 64 07/10/17 00:05 98.0 66 16 143/81 (101) 99 07/09/17 21:46 96 Nasal Cannula 4.00 07/09/17 21:15 Nasal Cannula 4.00 31 07/09/17 21:15 98.2 79 21 150/86 (107) 96 07/09/17 20:11 75 07/09/17 16:50 97.8 70 20 142/68 (92) 98 07/09/17 14:03 Nasal Cannula 07/09/17 13:35 98.5 62 18 132/76 (94) 98 -: 07/09/17 0928 07/09/17 0928 Microbiology 07/10/17 Stool Occult Blood (EVELIA), Received Pending 07/10/17 Stool Occult Blood (EVELIA) - Final, Complete HEMOCCULT POSITIVE Physical Exam General Appearance: No Acute Distress, Comfortable Eyes Eye Exam: Pupils Equal Throat Throat Exam: Oral Mucosa Fitzhugh & Moist Neck Neck Exam: Neck Supple Pulmonary Resp Exam: Breath Sounds Equal, No Distress, Rhonchi, Sputum, Decreased Bases Cardiology CV Exam: Regular, Normal Sinus Rhythm Gastrointestinal/Abdomen GI Exam: Soft, Non-Tender, Bowel Sounds Present Extremeties Extremities Exam: Moderate Edema, Pitting Edema, Dependent Edema Neurologic Neuro Exam: Alert, Awake, Oriented Psychiatric Psych Exam: Appropriate Responses Assessment/Plan Assessment Summary: LEESA/Acute Renal Failure, Hypertension, CKD Stage IV Problem List: (1) COPD (chronic obstructive pulmonary disease) ICD Codes: J44.9 - Chronic obstructive pulmonary disease, unspecified Status: Chronic (2) Bronchitis ICD Codes: J40 - Bronchitis, not specified as acute or chronic Status: Acute (3) HTN (hypertension) ICD Codes: I10 - Essential (primary) hypertension Status: Chronic (4) Diabetes mellitus ICD Codes: E11.9 - Type 2 diabetes mellitus without complications (5) Acute respiratory failure ICD Codes: J96.00 - Acute respiratory failure, unspecified whether with hypoxia or hypercapnia (6) Severe sepsis ICD Codes: A41.9 - Sepsis, unspecified organism; R65.20 - Severe sepsis without septic shock Status: Acute (7) Acute kidney injury ICD Codes: N17.9 - Acute kidney failure, unspecified Plan Patient has been non oliguric. Has Chronic kidney disease, possibly stage 3- 4. Now develop LEESA. K is normal, on Zosyn. ID is following. Creatinine is stable at1.9. Continue diuretics, edema is improving. Lasix increased, also told to decrease oral fluid intake. Hgb. is stable, for GI consult. Problem Qualifiers (1) Diabetes mellitus: Qualified Codes: E11.8 - Type 2 diabetes mellitus with unspecified complications (2) Acute respiratory failure: Qualified Codes: J96.02 - Acute respiratory failure with hypercapnia Bismark Woods MD Jul 10, 2017 11:17
--- NOTE | 2017-07-10 11:18 | PD.ONC.PN ---
Subjective Subjective Remarks Afebrile I'm having a hard time swallowing and I can't eat anything" Had Heme + bowel movements last night. Objective Data Date Time Temp Pulse Resp B/P (MAP) Pulse Ox O2 Delivery O2 Flow Rate FiO2 07/10/17 10:31 20 07/10/17 08:00 69 07/10/17 08:00 94 Nasal Cannula 4.00 07/10/17 08:00 97.6 69 20 139/67 (91) 94 07/10/17 05:10 98.0 61 16 144/70 (94) 99 07/10/17 03:35 63 07/10/17 00:09 64 07/10/17 00:05 98.0 66 16 143/81 (101) 99 07/09/17 21:46 96 Nasal Cannula 4.00 07/09/17 21:15 Nasal Cannula 4.00 31 07/09/17 21:15 98.2 79 21 150/86 (107) 96 07/09/17 20:11 75 07/09/17 16:50 97.8 70 20 142/68 (92) 98 07/09/17 14:03 Nasal Cannula 07/09/17 13:35 98.5 62 18 132/76 (94) 98 07/10/17 07/10/17 07/10/17 07:00 15:00 23:00 Output Total 500 ml Balance -500 ml Result Diagram: 07/09/1792707/09/17927 Culture Results Microbiology Date/Time Source Procedure Growth Status 07/08/17 06:32 Blood Peripheral Aerobic Blood Culture - Preliminary Staph Sp Coagulase Negative Resulted 07/08/17 06:32 Blood Peripheral Anaerobic Blood Culture - Final QNS - SEE AEROBE REPORT Resulted 07/08/17 06:18 Blood Peripheral Aerobic Blood Culture - Preliminary NO GROWTH IN 2 DAYS Resulted 07/08/17 06:18 Blood Peripheral Anaerobic Blood Culture - Final QNS - SEE AEROBE REPORT Resulted 07/10/17 08:22 Stool Stool Stool Occult Blood (EVELIA) Pending Received 07/10/17 02:00 Stool Stool Stool Occult Blood (EVELIA) - Final HEMOCCULT POSITIVE Complete Administered Medications Medications (Trade) Dose Ordered Sig/Sunil Route PRN Reason Start Time Stop Time Status Last Admin Dose Admin Sodium Chloride (NS Flush) 2 ml BID IV FLUSH 06/24/17 21:00 07/10/17 09:20 Ondansetron HCl (Zofran Inj) 4 mg Q6H PRN IV PUSH NAUSEA OR VOMITING 06/24/17 20:30 07/03/17 17:30 Chlorhexidine Gluconate (Chlorhexidine 2% Cloth) Taper DAILY@04 TOP 06/25/17 04:00 06/21/18 03:59 07/01/17 04:00 Senna/Docusate Sodium (Olesya-Colace) 1 tab BID PO 06/24/17 21:00 07/09/17 09:44 Bisacodyl (Dulcolax Supp) 10 mg DAILY PRN RECTAL SEVERE CONSITIPATION 06/24/17 20:30 06/28/17 08:31 Amiodarone HCl (Cordarone) 200 mg DAILY PO 06/25/17 09:00 07/10/17 09:19 Methadone HCl (Methadone Liq) 2.5 mg BID PO 06/24/17 21:00 07/10/17 09:22 Dextrose (D50w (Vial) Inj) 50 ml UNSCH PRN IV PUSH HYPOGLYCEMIA-SEE COMMENTS 06/24/17 20:30 06/24/17 21:15 Sodium Chloride (NS Flush) DAILY IV FLUSH 06/25/17 09:00 07/06/17 09:00 Morphine Sulfate (Morphine Inj) 2 mg Q3H PRN IV PUSH pain 1-5 06/24/17 23:15 07/05/17 18:44 Morphine Sulfate (Morphine Inj) 4 mg Q3H PRN IV PUSH pain 6-10 06/24/17 23:15 07/06/17 02:26 Bisacodyl (Dulcolax Ec) 10 mg HS PO 06/26/17 21:00 07/05/17 21:13 Sennosides (Senna Liq) 8.8 mg DAILY PO 06/28/17 09:00 07/09/17 09:44 Pantoprazole Sodium (Protonix) 40 mg DAILY PO 07/01/17 09:00 07/10/17 09:19 Insulin Human Regular (NovoLIN R SUPPLEMENTAL SCALE) 1 ACHS SQ 07/02/17 12:00 07/10/17 09:20 Prednisone (Deltasone) 20 mg BID PO 07/02/17 21:00 Future Hold 07/06/17 09:55 Lactulose (Lactulose Liq) 30 ml BID PO 07/04/17 09:00 07/09/17 09:44 Albuterol/ Ipratropium (Duoneb Neb) 1 ampule Q4HR NEB PRN INH SHORTNESS OF BREATH 07/05/17 17:00 07/06/17 20:26 Piperacillin Sod/ Tazobactam Sod 50 ml @ 200 mls/hr Q6HR IV 07/06/17 18:00 07/10/17 05:07 Methylprednisolone Sodium Succinate (SoluMEDROL INJ) 40 mg Q12HR IV PUSH 07/06/17 21:00 07/10/17 09:19 Furosemide (Lasix Inj) 40 mg BID@0900,1800 IV PUSH 07/09/17 09:00 07/10/17 09:26 Sucralfate (Carafate Liq) 1 gm ACHS PO 07/09/17 08:00 07/10/17 08:00 Multi-Ingredient Mouthwash/Gargle (Magic Mouthwash Adult Liq) 5 ml QID SWISH-SWAL 07/09/17 09:00 07/10/17 09:00 Nystatin (Mycostatin Liq) 5 ml QID SWISH-SWAL 07/09/17 13:00 07/10/17 09:18 Nystatin (Mycostatin Oint) 1 applic Q8HR TOPICAL 07/09/17 15:15 07/10/17 05:08 Miconazole Nitrate (Micatin 2% Cream) 1 applic Q12HR TOPICAL 07/09/17 21:00 07/10/17 09:00 Objective Remarks GENERAL: Elderly male sitting up in bed asleep on approach. Awakens easily to verbal stimuli. SKIN: Warm and dry. HEAD: Normocephalic. EYES: No injection or drainage. MOUTH: Xerostomia, +thrush NECK: Supple, trachea midline. CARDIOVASCULAR: +S1/S2 RESPIRATORY: Anterior yates clear. GASTROINTESTINAL: Abdomen mildly distended, non-tender. EXTREMITIES: No cyanosis. No edema. NEUROLOGICAL: Awake and alert, normal speech. Moving all extremities. Assessment/Plan Problem List: (1) Pancytopenia ICD Codes: D61.818 - Other pancytopenia Status: Chronic Plan: 07/08/17: Pt having heme + stools; will defer to GI for management. Continue to monitor CBC. -- Likely due to infection -- No anticoagulation due to thrombocytopenia --HIT negative (2) CML (chronic myelocytic leukemia) ICD Codes: C92.10 - Chronic myeloid leukemia, BCR/ABL-positive, not having achieved remission Status: Chronic Plan: -- Was originally diagnosed in 1998 -- On Gleevec as outpatient -- Currently on hold due to pancytopenia (3) Ileus ICD Codes: K56.7 - Ileus, unspecified Status: Resolved Plan: --GI following --had BM 07/08 (4) Pneumonia ICD Codes: J18.9 - Pneumonia, unspecified organism Status: Acute Plan: --on Zosyn (5) Candidiasis of mouth and esophagus ICD Codes: B37.81 - Candidal esophagitis; B37.0 - Candidal stomatitis Status: Acute Plan: --started on magic mouthwash Assessment 82 y/o male with history of CML. hematology consulted for pancytopenia Attending Statement LATE ENTRY ( computer was down) Pt was seen yesterday The exam, history, and the medical decision-making described in the above note were completed with the assistance of the mid-level provider. I reviewed and agree with the findings presented. I attest that I had a [id number] encounter with the patient on the same day, and personally performed and documented my assessment and findings in the medical record. c/o Mouth sores and dysphagia. c/o weakness. monitor cbc on a/b for pNA Problem Qualifiers (1) Pneumonia: Khushi Reynolds Jul 10, 2017 11:18 Fabrice Patel MD Jul 11, 2017 22:03
--- NOTE | 2017-07-10 11:32 | HHI.HCPN ---
Reason for visit a. To assist with evaluation and management of symptoms including: dyspnea, pain, n/v/constipation b. To assist medical decision maker(s) with: better understanding of current medical conditions; weighing benefits/burdens of medical treatment options; making medical treatment decisions. Subjective/Interval History Pt seen today to follow up on comfort, goals. Pt reported to have blood in stool per nursing, Hemoccult +. CBC today pending. ID reconsulted for +staph coagulase neg cultures. Continued on Zosyn, follow cultures. Wound care consulted for reported wounds to buttocks, heel. purple discoloration to R heel, indicating deep tissue injury. L heel is noted with blanchable erythema.Skin prep was applied to R heel and left open to air. Pt w Heel wound 3cm x 6 cm, and several small wounds to buttocks, wound care tx in place. Heel boots have been added, + airbed. Magic mouthwash + nystatin ordered for oral thrush. Patient seen in room no family present, RT present checking O2 saturation ( 92% on 4LPM NC). Pt sleeping , arouses to verbal. Mostly oriented, irritable with my questioning. Endorses breathing feels "ok" today, denies dyspnea. +moist cough elicited w request to deep breath for chest auscultation. Endorses hungry but unable to eat d/t sore throat, says is not feeling better yet. Is able to drink cool liquids. Denies GI discomfort- no n/v. Falls asleep during my exam. Follows simple commands. Attempt to explore conditions w him, but he is drowsy and does not seem to want to participate. Contact information left at bedside for when returns. D/w nurse. . Advance Directives Living Will: Completed, but not made available Health Care Surrogate: Completed, but not made available Objective Vital Signs Date Time Temp Pulse Resp B/P (MAP) Pulse Ox O2 Delivery O2 Flow Rate FiO2 07/10/17 10:31 20 07/10/17 08:00 69 07/10/17 08:00 94 Nasal Cannula 4.00 07/10/17 08:00 97.6 69 20 139/67 (91) 94 07/10/17 05:10 98.0 61 16 144/70 (94) 99 07/10/17 03:35 63 07/10/17 00:09 64 07/10/17 00:05 98.0 66 16 143/81 (101) 99 07/09/17 21:46 96 Nasal Cannula 4.00 07/09/17 21:15 Nasal Cannula 4.00 31 07/09/17 21:15 98.2 79 21 150/86 (107) 96 07/09/17 20:11 75 07/09/17 16:50 97.8 70 20 142/68 (92) 98 07/09/17 14:03 Nasal Cannula 07/09/17 13:35 98.5 62 18 132/76 (94) 98 Intake & Output 07/10/17 07/10/17 07:00 19:00 Intake Total 150 ml Output Total 500 ml Balance -350 ml Intake Oral 150 ml Output Urine Total 500 ml # Bowel Movements 2 Physical Exam CONSTITUTIONAL/GENERAL: alert, adequately nourished male. TUBES/LINES/DRAINS: Peripheral IV left upper extremity, NC O2 4L SKIN: No jaundice, rashes, or lesions. No wounds seen anteriorly- reported wound to heel, buttocks I did not visualize. Skin warm, dry.+ Edema bilateral lower extremities, hands. ENT: Hard of hearing. Nose without bleeding or purulent drainage. Lips, mucous membranes dry. + multiple beige cobblestone-like confluent papules on surface of tongue and inner lips. CARDIOVASCULAR: Regular rate and rhythm without murmur. No JVD. Peripheral pulses symmetric.2+ edema bilateral lower legs, trace edema hands RESPIRATORY/CHEST: Symmetric, unlabored respirations. Coarse air movement throughout, diminished bases. GASTROINTESTINAL: Abdomen soft, round, nontender. No palpable masses. No guarding. Bowel sounds normoactive GENITOURINARY: Without palpable bladder distension. Voids to urinal observe clear yellow urine present MUSCULOSKELETAL: Extremities without clubbing, cyanosis. 2+ edema bilateral lower legs, 1+ edema BUE. No joint tenderness or effusion noted. No mottling or clubbing. NEUROLOGICAL: lethargic, arouses some, Mostly oriented though forgetful. Some limited insight. Moves all 4 extremities, generally cooperative. PSYCHIATRIC: No obvious anxiety/depression. Diagnostic Tests Laboratory Laboratory Tests Test 07/08/17 06:18 07/09/17 09:28 White Blood Count 5.9 TH/MM3 (4.0-11.0) 7.0 TH/MM3 (4.0-11.0) Red Blood Count 2.92 MIL/MM3 (4.50-5.90) 3.23 MIL/MM3 (4.50-5.90) Hemoglobin 9.5 GM/DL (13.0-17.0) 10.3 GM/DL (13.0-17.0) Hematocrit 28.4 % (39.0-51.0) 31.5 % (39.0-51.0) Mean Corpuscular Volume 97.3 FL (80.0-100.0) 97.7 FL (80.0-100.0) Mean Corpuscular Hemoglobin 32.5 PG (27.0-34.0) 31.9 PG (27.0-34.0) Mean Corpuscular Hemoglobin Concent 33.3 % (32.0-36.0) 32.7 % (32.0-36.0) Red Cell Distribution Width 21.8 % (11.6-17.2) 21.1 % (11.6-17.2) Platelet Count 89 TH/MM3 (150-450) 86 TH/MM3 (150-450) Mean Platelet Volume 9.1 FL (7.0-11.0) 9.1 FL (7.0-11.0) CBC Comment AUTO DIFF AUTO DIFF Differential Total Cells Counted 100 100 Neutrophils % (Manual) 63 % (16-70) 78 % (16-70) Band Neutrophils % 20 % (0-6) 5 % (0-6) Lymphocytes % 9 % (9-44) 15 % (9-44) Monocytes % 7 % (0-8) 2 % (0-8) Neutrophils # (Manual) 4.9 TH/MM3 (1.8-7.7) 5.8 TH/MM3 (1.8-7.7) Differential Comment FINAL DIFF MANUAL FINAL DIFF MANUAL Plasma Cells 1 % (0-0) Toxic Granulation 1+ (NORMAL) Toxic Vacuolation PRESENT (NONE SEEN) Dohle Bodies (NONE SEEN) Platelet Estimate LOW (NORMAL) LOW (NORMAL) Platelet Morphology Comment NORMAL (NORMAL) NORMAL (NORMAL) Blood Urea Nitrogen 40 MG/DL (7-18) 45 MG/DL (7-18) Creatinine 1.92 MG/DL (0.60-1.30) 1.90 MG/DL (0.60-1.30) Random Glucose 111 MG/DL (74-106) 141 MG/DL (74-106) Total Protein 5.2 GM/DL (6.4-8.2) 5.5 GM/DL (6.4-8.2) Calcium Level 7.4 MG/DL (8.5-10.1) 7.4 MG/DL (8.5-10.1) Magnesium Level 2.0 MG/DL (1.5-2.5) 2.0 MG/DL (1.5-2.5) Sodium Level 147 MEQ/L (136-145) 146 MEQ/L (136-145) Potassium Level 3.7 MEQ/L (3.5-5.1) 3.3 MEQ/L (3.5-5.1) Chloride Level 108 MEQ/L (98-107) 109 MEQ/L (98-107) Carbon Dioxide Level 31.8 MEQ/L (21.0-32.0) 30.2 MEQ/L (21.0-32.0) Anion Gap 7 MEQ/L (5-15) 7 MEQ/L (5-15) Estimat Glomerular Filtration Rate 34 ML/MIN (>89) 34 ML/MIN (>89) Protein Corrected Calcium 8.5 MG/DL (8.5-10.1) 8.3 MG/DL (8.5-10.1) Basophilic Stippling MOD (NORMAL) Hematology Comments Result Diagram: 07/09/1792707/09/1728 Microbiology Microbiology Date/Time Source Procedure Growth Status 07/08/17 06:32 Blood Peripheral Aerobic Blood Culture - Preliminary Staph Sp Coagulase Negative Resulted 07/08/17 06:32 Blood Peripheral Anaerobic Blood Culture - Final QNS - SEE AEROBE REPORT Resulted 07/08/17 06:18 Blood Peripheral Aerobic Blood Culture - Preliminary NO GROWTH IN 2 DAYS Resulted 07/08/17 06:18 Blood Peripheral Anaerobic Blood Culture - Final QNS - SEE AEROBE REPORT Resulted 07/10/17 08:22 Stool Stool Stool Occult Blood (EVELIA) Pending Received 07/10/17 02:00 Stool Stool Stool Occult Blood (EVELIA) - Final HEMOCCULT POSITIVE Complete Imaging Last Impressions Abdomen X-Ray 07/08/17 0600 Signed Impressions: Service Date/Time: Saturday, July 08, 2017 04:09 - CONCLUSION: Negative KUB. Alli Schroeder MD Abdomen/Pelvis CT 07/05/17 0000 Signed Impressions: Service Date/Time: Wednesday, July 05, 2017 15:06 - CONCLUSION: 1. Left lower lobe consolidation. 2. Dilated loops of proximal and mid small bowel. 3. Stable distal abdominal aortic aneurysm. 4. Stable sigmoid diverticulosis without evidence of diverticulitis. David Gutierrez MD Chest X-Ray 06/29/17 0000 Signed Impressions: Service Date/Time: Thursday, June 29, 2017 08:22 - CONCLUSION: Mild bibasilar atelectasis. Mild compensated and unchanged cardiomegaly. Alli Hansen MD Hepatobiliary Scan Nuclear Medicine 06/25/17 0000 Signed Impressions: Service Date/Time: Sunday, June 25, 2017 10:43 - CONCLUSION: 1. No evidence for cystic duct obstruction. 2. Biliary enteric reflux. Braulio Sellers MD Assessment and Plan Disease Oriented Problem List: (1) CKD (chronic kidney disease), stage III (2) Acute renal failure (3) Hypotension (4) Severe sepsis (5) Diverticulosis (6) Chronic systolic heart failure (7) CML (chronic myelocytic leukemia) (8) Pancytopenia (9) COPD (chronic obstructive pulmonary disease) (10) Diabetes mellitus Symptom Scale: (1) Dyspnea (2) Pain (3) Nausea (4) Constipation (5) Fatigue Pertinent Non-Medical Issues Psychosocial:lives at home with his of 61 years. Originally from [place] moved to [place] in the late . His adult children and grandchildren still reside in [place]. Retired from [employer]. Spiritual:Does not indicate any spiritual/sabianist preference does not want automatic machines supervisor visits..( later indicates that he would in fact want automatic machines supervisor visits and requests them-she indicates that they have no particular affiliation but believes in God and would want to support) Legal: Patient is lethargic, alertness fluctuates, he seems to have on some understanding/insight; likely would best be supported by shared decision-making by either his or whomever is designated healthcare surrogate. Ethical issues impacting care: Important Contacts Jazzy Tabares [phone] . Prognosis This patient was admitted for nausea vomiting and severe abdominal pain. Along his course he is found to have significant hypotension requiring aggressive fluid resuscitation. Sepsis workup essentially negative though he has had ongoing GI pathology. He continues to have GI distention and ileus. May have pleural effusion, has had increased FiO2 requirements. Underlying COPD. Overall prognosis to recover to prior level of independence is guarded patient may require rehabilitation following this acute hospitalization. Additionally patient is very high risk for further complications and setbacks and decline secondary to his advanced age, limited desire to participate, and multiple medical issues. . Code Status: No Code Plan * Legal decision maker:Patient is lethargic at times, alertness fluctuates, he seems to have on some understanding/insight; likely would best be supported by shared decision-making by his . * Goals: For now they wish to maximize ongoing treatments to try to improve patient health enough to return home, goes aggressive short of resuscitation. * CODE STATUS: DNR * SYMPTOMS: --Dyspnea-CXR 06/29 with mild bibasilar atelectasis; has remained acutely hospitalized, increased FiO2 requirements currently requiring 50% FiO2-- today weaned to NC. Abdomen pelvis CT from 07/05 indicative of lower lobe consolidation. Has not been utilizing incentive spirometry. Has not been out of bed or ambulating regularly. Underlying history of COPD O2 dependent at night and utilized O2 as needed during the day. High risk for further respiratory decline secondary to acute illness and underlying medical comorbidities. Patient denies any dyspnea today; endorses breathing overall feeling fine --Pain--abdominal pain probably secondary to ileus-- improved. 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 He has been on methadone outpatient though he is unable to further describe for me how long he has been on this or who prescribed for him. For now will monitor ongoing prn requirements further recommendations or titration pending patient ability to qualify pain; as well as prn acquired/efficacy. discussed sedation vs pain relief w pt /family on prior interactions,and limited up-titration of pain medication 2/2 to mental status, aggressive goals --Nausea/vomiting-patient with intermittent episodes of nausea and vomiting 2 /2 ileus, abdominal pathology. Some relief with NG tube in place .Out put decreased, KUB neg for ileus, NGT d/c 2 days ago. Patient denies any nausea today, c/o hungry, but has sore throat 2/2 oral thrush limiting PO intake. --Constipation-patient with intermittent episodes of nausea and vomiting 2/2 ileus, abdominal pathology. Some relief with NG tube in place NG tube with moderate amount of output though patient wishes to have NG removed as soon as medically possible. GI following. Last BM 07/10, yesterday + blood, Hemoccult +, repeat Hemoccult pending today. --Fatigue/generalized weakness-generalized deconditioning during hospital course, + ileus, pulmonary effusion, activity further limited by chronic comorbid conditions COPD, now with 16 day hospitalization and has intermittently refused to participate with PT. Likely require ongoing PT for reconditioning and possibly rehabilitation at discharge. -- Oral thrush- painful lesions on tongue. magic mouthwash + nystatin in place, still w limited PO intake 2/2 to * Palliative care will continue to follow during hospital course as condition evolves, to assist patient/decision-maker with understanding of medical conditions, weighing benefits/burdens of treatment options, for clarification of goals of treatment. Additionally will assist with any symptoms of palliative concern Time Spent Total Floor Time (mins): 20 (chart review, PE, d/w nurse) Attestation To help prompt me to consider important information that might be impacting today's encounter and assessment, information from prior notes written by myself or my colleagues may have been "brought forward" into today's note. My signature on this note, however, is an attestation that I personally performed the exam, history, and/or decision-making noted today, and, unless otherwise indicated, the interactions with patient, family, and staff as well as the review of records all occurred today. I also attest that the listed assessment and stated plan reflect my best clinical judgment today based on the combination of historical information, prior notes, and today's exam/ interactions. When time spent is documented, it refers only to time spent today by the signer, or if indicated, combined time spent today by collaborating physician/nurse practitioner. Rashmi Collazo Jul 10, 2017 11:32
[2017-07-10 13:16] LABS: BICARBONATE 32.1 MEQ/L (21.0-32.0); CALCIUM 6.7 MG/DL (8.5-10.1); CREATININE 1.59 MG/DL (0.60-1.30); MAGNESIUM 1.9 MG/DL (1.5-2.5)
[2017-07-10 13:52] LABS: CALCIUM-PROTEIN CORRECTED 7.7 MG/DL (8.5-10.1); TOTAL PROTEIN 5.1 GM/DL (6.4-8.2)
--- NOTE | 2017-07-10 14:22 | HHI.GIFU ---
Subjective Remarks Reconsulted for bloody diarrhea. Pt reports that he started having bloody diarrhea overnight- 3 episodes last night and 3 today. He denies any nausea, vomiting, abdominal pain. HH stable. (Ela Johnson) Objective Vitals I&O Vital Signs Date Time Temp Pulse Resp B/P (MAP) Pulse Ox O2 Delivery O2 Flow Rate FiO2 07/10/17 12:00 97.3 88 18 124/68 (86) 94 07/10/17 12:00 88 07/10/17 10:45 92 Nasal Cannula 4.00 07/10/17 10:31 20 07/10/17 08:00 69 07/10/17 08:00 94 Nasal Cannula 4.00 07/10/17 08:00 97.6 69 20 139/67 (91) 94 07/10/17 05:10 98.0 61 16 144/70 (94) 99 07/10/17 03:35 63 07/10/17 00:09 64 07/10/17 00:05 98.0 66 16 143/81 (101) 99 07/09/17 21:46 96 Nasal Cannula 4.00 07/09/17 21:15 Nasal Cannula 4.00 31 07/09/17 21:15 98.2 79 21 150/86 (107) 96 07/09/17 20:11 75 07/09/17 16:50 97.8 70 20 142/68 (92) 98 I/O 07/09/17 07/09/17 07/09/17 07/10/17 07/10/17 07/10/17 07:00 15:00 23:00 07:00 15:00 23:00 Intake Total 200 ml 1250 ml Output Total 400 ml 500 ml 500 ml Balance -200 ml 750 ml -500 ml Intake Oral 200 ml 1150 ml IV Total 100 ml Output Urine Total 400 ml 500 ml 500 ml # Voids 4 # Bowel Movements 2 Laboratory Laboratory Tests Test 07/10/17 12:40 Blood Urea Nitrogen 44 Creatinine 1.59 Random Glucose 247 Total Protein 5.1 Calcium Level 6.7 Magnesium Level 1.9 Sodium Level 150 Potassium Level 3.4 Chloride Level 101 Carbon Dioxide Level 32.1 Anion Gap 17 Estimat Glomerular Filtration Rate 42 Protein Corrected Calcium 7.7 Date/Time Source Procedure Growth Status 07/08/17 06:32 Blood Peripheral Aerobic Blood Culture - Preliminary Staph Sp Coagulase Negative Resulted 07/08/17 06:32 Blood Peripheral Anaerobic Blood Culture - Final QNS - SEE AEROBE REPORT Resulted 07/10/17 08:22 Stool Stool Stool Occult Blood (EVELIA) Pending Received 07/05/17 21:00 Sputum Expectorated Sputum Gram Stain - Final Complete 07/05/17 21:00 Sputum Culture - Final Klebsiella Pneumoniae Pseudomonas Aeruginosa Complete 06/24/17 15:55 Urine Catheterized Urine Urine Culture - Final NO GROWTH IN 48 HOURS. Complete Imaging Last Impressions Abdomen X-Ray 07/08/17 0600 Signed Impressions: Service Date/Time: Saturday, July 08, 2017 04:09 - CONCLUSION: Negative KUB. Alli Schroeder MD Abdomen/Pelvis CT 07/05/17 0000 Signed Impressions: Service Date/Time: Wednesday, July 05, 2017 15:06 - CONCLUSION: 1. Left lower lobe consolidation. 2. Dilated loops of proximal and mid small bowel. 3. Stable distal abdominal aortic aneurysm. 4. Stable sigmoid diverticulosis without evidence of diverticulitis. David Gutierrez MD Chest X-Ray 06/29/17 0000 Signed Impressions: Service Date/Time: Thursday, June 29, 2017 08:22 - CONCLUSION: Mild bibasilar atelectasis. Mild compensated and unchanged cardiomegaly. Alli Hansen MD Hepatobiliary Scan Nuclear Medicine 06/25/17 0000 Signed Impressions: Service Date/Time: Sunday, June 25, 2017 10:43 - CONCLUSION: 1. No evidence for cystic duct obstruction. 2. Biliary enteric reflux. Braulio Sellers MD Physical Exam HEENT: Normocephalic; atraumatic ,no jaundice, skin color pale CHEST: Course breath sounds CARDIAC: RRR. ABDOMEN: Soft, nontender, no hepatomegaly, bowel sounds present EXTREMITIES: BLE edema TAILOR'S AIDE: Lethargic, follows commands (Ela Johnson) Assessment and Plan Plan ASSESSMENT - Bloody diarrhea. Began last night. Had 3 bloody stools last night and 3 today. HH Stable yesterday, will check for today. (+) Abx. Will check for CDiff. Of note, is on lovenox, senna, dulcolax. No abdominal pain, nausea, vomiting. - Ileus. Resolved. NGT was removed yesterday. - GERD, PPI - Anemia. S/P 2 units PRBC. 10.3/31.5 yesterday. - LEESA, nephrology following - ALEJANDRA, Resp. insuff. Improved. On n/c. - DM, CHF, Hx CML with leukopenia, per attending. - Thrush. Nystatin and Magic mouthwash which is effective. PLAN - GREGORIA - Stat CBC - Send stool for CDiff - Stat bleeding scan - D/C Lactulose. - PPI - Monitor labs as warranted - Encourage mobility out of bed daily in chair, working with physical therapy - Supportive care - Further recommendations to follow based on results of above - Pt seen and examined by Dr. Saab and myself and this note is written on her behalf (Ela Johnson) Physician Comments seen, examined agree with above bleeding scan negative odynophagia/dysphagia - most likely trush -if not better consider egd/ flexisigmoidoscopy same time (Viviana Saab MD) Ela Johnson Jul 10, 2017 14:22 Viviana Saab MD Jul 10, 2017 21:46
--- NOTE | 2017-07-10 18:09 | RADRPT ---
EXAM DATE/TIME: 07/10/2017 16:42 [facility] COMPARISON: No previous studies available for comparison. INDICATIONS : Blood in stool. DOSE: 20.2 mCi Tc99m Ultratag labeled red blood cells IV IMAGIN hrs MEDICAL HISTORY : Leukemia. Congestive heart failure. Myocardial infarction. SURGICAL HISTORY : Pacemaker. ENCOUNTER: Initial ACUITY: 1 day PAIN SCALE: 3/10 LOCATION: Bilateral Abdomen. TECHNIQUE: Following the modified in vitro labeling of autologous red cells, dynamic continuous images were acqu ired for the specified interval. FINDINGS: BIODISTRIBUTION: There is a very good labeling of red cells without significant uptake in the gastric wall. There is good delineation of the blood pool of the spleen and abdominal vessels. BLEEDING: No episodes of active GI bleeding are observed during specified interval of continuous observation. CONCLUSION: No active gastrointestinal bleeding Alli Teague MD on July 10, 2017 at 18:05 Board Certified Radiologist. This report was verified electronically.
[2017-07-10] MEDS: BISACODYL EC 5 MG TABEC PO SCH (20:53)
[2017-07-11] VITALS (12 sets, daily range): BP systolic 125–145; BP diastolic 70–91; PULSE 65–90; RESP 15–20; TEMP 97.8–98.2; O2SAT 94–99
[2017-07-11] MEDS: PIPERACIL-TAZO 3.375 GM PREMIX 50 ML IV SCH ×4 (00:19→18:00)
[2017-07-11] MEDS: CHLORHEXIDINE GLUCONATE 2 % 1 PACK (2 CLOTHS) TOP SCH (03:07)
[2017-07-11] MEDS: NYSTATIN 100,000 U/GM OINT 15 GM TUBE TOPICAL SCH ×3 (06:03→23:31)
[2017-07-11 07:25] LABS: HEMOGLOBIN 9.1 GM/DL (13.0-17.0); MEAN CELL VOLUME 99.1 FL (80.0-100.0); MEAN CORPUSCULAR HEMOGLOBIN 32.3 PG (27.0-34.0); MEAN CORPUSCULAR HGB CONC 32.5 % (32.0-36.0); MEAN PLATELET VOLUME 9.2 FL (7.0-11.0); PLATELET COUNT 107 TH/MM3 (150-450); RED BLOOD COUNT 2.83 MIL/MM3 (4.50-5.90); WHITE BLOOD COUNT 7.8 TH/MM3 (4.0-11.0)
[2017-07-11] MEDS: SUCRALFATE 1 GM/10 ML CUP PO SCH ×4 (08:00→23:26)
[2017-07-11 08:10] LABS: BANDS 14 % (0-6); LYMPHOCYTES 8 % (9-44); METAMYELOCYTES 1 % (0-1); MONOCYTES 1 % (0-8); MYELOCYTES 2 % (0-0); NEUTROPHIL # MANUAL DIFF 7.1 TH/MM3 (1.8-7.7); POLYS (SEG NEUTROPHILS) 74 % (16-70)
[2017-07-11 08:11] LABS: TOXIC GRANULATION 2+ (NORMAL)
[2017-07-11] MEDS: DOCUSATE SODIUM 50 MG/SENNA 8.6 MG TAB PO SCH ×2 (08:52→21:00)
[2017-07-11] MEDS: SENNOSIDES SYRUP 8.8 MG/5 ML CUP PO SCH (08:52)
[2017-07-11] MEDS: PANTOPRAZOLE SOD 40 MG DELAYED RELEASE TAB PO SCH (08:52)
[2017-07-11] MEDS: METHADONE HCL 10 MG/10 ML ORAL SOLUTION PO SCH ×2 (08:52→23:30)
[2017-07-11] MEDS: NYSTAT/DIPHENHY/LIDO MOUTHWASH (Adult) 120ML SWISH-SWAL SCH ×4 (08:52→23:25)
[2017-07-11] MEDS: MICONAZOLE NITRATE 2% CREAM 15 GM TOPICAL SCH ×2 (08:52→23:31)
[2017-07-11] MEDS: AMIODARONE 200 MG TAB PO SCH (08:52)
[2017-07-11] MEDS: NYSTATIN SUSP 500,000 U/5 ML CUP SWISH-SWAL SCH ×4 (08:52→23:31)
[2017-07-11] MEDS: methylPREDNISolone SOD SUCC 40 MG/1 ML VIAL IV PUSH SCH ×2 (08:53→23:26)
[2017-07-11] MEDS: INSULIN NovoLIN REGULAR SUPPLEMENTAL SCALE SQ SCH ×4 (08:53→21:00)
[2017-07-11] MEDS: FUROSEMIDE 40 MG/4 ML VIAL IV PUSH SCH ×2 (08:53→18:00)
[2017-07-11] MEDS: SODIUM CHLORIDE 0.9% FLUSH 10 ML FLUSH IV FLUSH SCH ×3 (08:54→23:25)
--- NOTE | 2017-07-11 10:15 | HHI.NPPN ---
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 I was called to see the patient because of elevated BUN and creatinine. Additional Remarks Patient is alert,breathing is better, not distress. Objective Data Data Vital Signs Date Time Temp Pulse Resp B/P (MAP) Pulse Ox O2 Delivery O2 Flow Rate FiO2 07/11/17 09:56 20 07/11/17 08:00 94 Nasal Cannula 3.00 07/11/17 08:00 65 07/11/17 08:00 98.2 65 18 145/73 (97) 94 07/11/17 05:59 98.0 66 15 141/70 (93) 96 07/11/17 04:22 66 07/11/17 00:14 98.1 81 20 131/91 (104) 95 07/11/17 00:02 90 07/10/17 20:35 Nasal Cannula 4.00 31 07/10/17 20:34 98.0 85 18 110/59 (76) 98 07/10/17 20:07 101 07/10/17 17:32 94 Nasal Cannula 4.00 07/10/17 16:00 98.6 103 20 123/74 (90) 94 07/10/17 15:00 72 07/10/17 12:00 97.3 88 18 124/68 (86) 94 07/10/17 12:00 88 07/10/17 10:45 92 Nasal Cannula 4.00 -: 07/11/17 0553 07/10/17 1240 Physical Exam General Appearance: No Acute Distress, Comfortable Eyes Eye Exam: Pupils Equal Throat Throat Exam: Oral Mucosa [place] & Moist Neck Neck Exam: Neck Supple Pulmonary Resp Exam: Breath Sounds Equal, No Distress, Rhonchi, Sputum, Decreased Bases Cardiology CV Exam: Regular, Normal Sinus Rhythm Gastrointestinal/Abdomen GI Exam: Soft, Non-Tender, Bowel Sounds Present Extremeties Extremities Exam: Moderate Edema, Pitting Edema, Dependent Edema Neurologic Neuro Exam: Alert, Awake, Oriented Psychiatric Psych Exam: Appropriate Responses Assessment/Plan Assessment Summary: LEESA/Acute Renal Failure, Hypertension, CKD Stage IV Problem List: (1) COPD (chronic obstructive pulmonary disease) ICD Codes: J44.9 - Chronic obstructive pulmonary disease, unspecified Status: Chronic (2) Bronchitis ICD Codes: J40 - Bronchitis, not specified as acute or chronic Status: Acute (3) HTN (hypertension) ICD Codes: I10 - Essential (primary) hypertension Status: Chronic (4) Diabetes mellitus ICD Codes: E11.9 - Type 2 diabetes mellitus without complications (5) Acute respiratory failure ICD Codes: J96.00 - Acute respiratory failure, unspecified whether with hypoxia or hypercapnia (6) Severe sepsis ICD Codes: A41.9 - Sepsis, unspecified organism; R65.20 - Severe sepsis without septic shock Status: Acute (7) Acute kidney injury ICD Codes: N17.9 - Acute kidney failure, unspecified Status: Acute Plan Patient has been non oliguric. Has Chronic kidney disease, possibly stage 3- 4. Now develop LEESA. K is normal, on Zosyn. ID is following. Creatinine is better. Continue diuretics, edema is improving. Continue Lasix, follow the urine out put and BMP. Problem Qualifiers (1) Diabetes mellitus: Qualified Codes: E11.8 - Type 2 diabetes mellitus with unspecified complications (2) Acute respiratory failure: Qualified Codes: J96.02 - Acute respiratory failure with hypercapnia Bismark Woods MD Jul 11, 2017 10:15
--- NOTE | 2017-07-11 11:42 | PD.ONC.PN ---
Subjective Subjective Remarks Afebrile "I had another bloody BM this morning" Reports he is overall feeling better except for his mouth/throat. Objective Data Date Time Temp Pulse Resp B/P (MAP) Pulse Ox O2 Delivery O2 Flow Rate FiO2 07/11/17 10:30 95 Nasal Cannula 3.00 07/11/17 09:56 20 07/11/17 08:00 94 Nasal Cannula 3.00 07/11/17 08:00 65 07/11/17 08:00 98.2 65 18 145/73 (97) 94 07/11/17 05:59 98.0 66 15 141/70 (93) 96 07/11/17 04:22 66 07/11/17 00:14 98.1 81 20 131/91 (104) 95 07/11/17 00:02 90 07/10/17 20:35 Nasal Cannula 4.00 31 07/10/17 20:34 98.0 85 18 110/59 (76) 98 07/10/17 20:07 101 07/10/17 17:32 94 Nasal Cannula 4.00 07/10/17 16:00 98.6 103 20 123/74 (90) 94 07/10/17 15:00 72 07/10/17 12:00 97.3 88 18 124/68 (86) 94 07/10/17 12:00 88 07/11/17 07/11/17 07/11/17 07:00 15:00 23:00 Output Total 700 ml Balance -700 ml Result Diagram: 07/11/17 0553 07/10/17 1240 Laboratory Results Laboratory Tests Test 07/10/17 12:40 07/11/17 00:10 07/11/17 05:53 Blood Urea Nitrogen 44 MG/DL Creatinine 1.59 MG/DL Random Glucose 247 MG/DL Total Protein 5.1 GM/DL Calcium Level 6.7 MG/DL Magnesium Level 1.9 MG/DL Sodium Level 150 MEQ/L Potassium Level 3.4 MEQ/L Chloride Level 101 MEQ/L Carbon Dioxide Level 32.1 MEQ/L Anion Gap 17 MEQ/L Estimat Glomerular Filtration Rate 42 ML/MIN Protein Corrected Calcium 7.7 MG/DL Stool C. difficile Toxin (PCR) NEGATIVE Stl C. difficile Toxin Epiderm 027 PRESUMPTIVE NEGATIVE White Blood Count 7.8 TH/MM3 Red Blood Count 2.83 MIL/MM3 Hemoglobin 9.1 GM/DL Hematocrit 28.0 % Mean Corpuscular Volume 99.1 FL Mean Corpuscular Hemoglobin 32.3 PG Mean Corpuscular Hemoglobin Concent 32.5 % Red Cell Distribution Width 20.0 % Platelet Count 107 TH/MM3 Mean Platelet Volume 9.2 FL CBC Comment AUTO DIFF Differential Total Cells Counted 100 Neutrophils % (Manual) 74 % Band Neutrophils % 14 % Lymphocytes % 8 % Monocytes % 1 % Neutrophils # (Manual) 7.1 TH/MM3 Metamyelocytes 1 % Myelocytes 2 % Differential Comment FINAL DIFF MANUAL Toxic Granulation 2+ Platelet Estimate LOW Platelet Morphology Comment NORMAL Culture Results Microbiology Date/Time Source Procedure Growth Status 07/10/17 08:22 Stool Stool Stool Occult Blood (EVELIA) - Final HEMOCCULT NEGATIVE Complete 07/10/17 02:00 Stool Stool Stool Occult Blood (EVELIA) - Final HEMOCCULT POSITIVE Complete Administered Medications Medications (Trade) Dose Ordered Sig/Sunil Route PRN Reason Start Time Stop Time Status Last Admin Dose Admin Sodium Chloride (NS Flush) 2 ml BID IV FLUSH 06/24/17 21:00 07/11/17 08:54 Ondansetron HCl (Zofran Inj) 4 mg Q6H PRN IV PUSH NAUSEA OR VOMITING 06/24/17 20:30 07/03/17 17:30 Chlorhexidine Gluconate (Chlorhexidine 2% Cloth) Taper DAILY@04 TOP 06/25/17 04:00 06/21/18 03:59 07/01/17 04:00 Senna/Docusate Sodium (Olesya-Colace) 1 tab BID PO 06/24/17 21:00 07/09/17 09:44 Bisacodyl (Dulcolax Supp) 10 mg DAILY PRN RECTAL SEVERE CONSITIPATION 06/24/17 20:30 06/28/17 08:31 Amiodarone HCl (Cordarone) 200 mg DAILY PO 06/25/17 09:00 07/11/17 08:52 Methadone HCl (Methadone Liq) 2.5 mg BID PO 06/24/17 21:00 07/11/17 08:52 Dextrose (D50w (Vial) Inj) 50 ml UNSCH PRN IV PUSH HYPOGLYCEMIA-SEE COMMENTS 06/24/17 20:30 06/24/17 21:15 Sodium Chloride (NS Flush) DAILY IV FLUSH 06/25/17 09:00 07/06/17 09:00 Morphine Sulfate (Morphine Inj) 2 mg Q3H PRN IV PUSH pain 1-5 06/24/17 23:15 07/05/17 18:44 Morphine Sulfate (Morphine Inj) 4 mg Q3H PRN IV PUSH pain 6-10 06/24/17 23:15 07/06/17 02:26 Bisacodyl (Dulcolax Ec) 10 mg HS PO 06/26/17 21:00 07/05/17 21:13 Sennosides (Senna Liq) 8.8 mg DAILY PO 06/28/17 09:00 07/09/17 09:44 Pantoprazole Sodium (Protonix) 40 mg DAILY PO 07/01/17 09:00 07/11/17 08:52 Insulin Human Regular (NovoLIN R SUPPLEMENTAL SCALE) 1 ACHS SQ 07/02/17 12:00 07/11/17 08:53 Prednisone (Deltasone) 20 mg BID PO 07/02/17 21:00 Future Hold 07/06/17 09:55 Albuterol/ Ipratropium (Duoneb Neb) 1 ampule Q4HR NEB PRN INH SHORTNESS OF BREATH 07/05/17 17:00 07/06/17 20:26 Piperacillin Sod/ Tazobactam Sod 50 ml @ 200 mls/hr Q6HR IV 07/06/17 18:00 07/11/17 06:03 Methylprednisolone Sodium Succinate (SoluMEDROL INJ) 40 mg Q12HR IV PUSH 07/06/17 21:00 07/11/17 08:53 Furosemide (Lasix Inj) 40 mg BID@0900,1800 IV PUSH 07/09/17 09:00 Future Hold 07/11/17 08:53 Sucralfate (Carafate Liq) 1 gm ACHS PO 07/09/17 08:00 07/11/17 08:00 Multi-Ingredient Mouthwash/Gargle (Magic Mouthwash Adult Liq) 5 ml QID SWISH-SWAL 07/09/17 09:00 07/11/17 08:52 Nystatin (Mycostatin Liq) 5 ml QID SWISH-SWAL 07/09/17 13:00 07/11/17 08:52 Nystatin (Mycostatin Oint) 1 applic Q8HR TOPICAL 07/09/17 15:15 07/11/17 06:03 Miconazole Nitrate (Micatin 2% Cream) 1 applic Q12HR TOPICAL 07/09/17 21:00 07/11/17 08:52 Objective Remarks GENERAL: Elderly male sitting up in bed working with PT SKIN: Warm and dry. HEAD: Normocephalic. EYES: No injection or drainage. MOUTH: Xerostomia, +thrush NECK: Supple, trachea midline. CARDIOVASCULAR: +S1/S2 RESPIRATORY: Anterior yates clear. GASTROINTESTINAL: Abdomen mildly distended, non-tender. EXTREMITIES: No cyanosis. No edema. NEUROLOGICAL: Awake and alert, normal speech. Moving all extremities. Assessment/Plan Problem List: (1) Pancytopenia ICD Codes: D61.818 - Other pancytopenia Status: Chronic Plan: 07/09/17: Platelet count is greater than 100k; will resume Gleevec today. Called and left message with pt's to bring it into hospital. Defer to GI team for persistent bloody bowel movements. CBC in am. 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 (3) Ileus ICD Codes: K56.7 - Ileus, unspecified Status: Resolved Plan: --GI following --had BM 07/08 (4) Pneumonia ICD Codes: J18.9 - Pneumonia, unspecified organism Status: Acute Plan: --on Zosyn (5) Candidiasis of mouth and esophagus ICD Codes: B37.81 - Candidal esophagitis; B37.0 - Candidal stomatitis Status: Acute Plan: --started on magic mouthwash Assessment 82 y/o male with history of CML. hematology consulted for pancytopenia Attending Statement The exam, history, and the medical decision-making described in the above note were completed with the assistance of the mid-level provider. I reviewed and agree with the findings presented. I attest that I had a [id number] encounter with the patient on the same day, and personally performed and documented my assessment and findings in the medical record. still has mouth sores. loose BM Ileus has resolved. Klebsiella PNA on A/B Plat >100. Resume Gleevec. Getting PT/OT d/w pt and family. Reconditioned, will need to be d/c to rehab . Problem Qualifiers (1) Pneumonia: Khushi Reynolds Jul 11, 2017 11:42 Fabrice Patel MD Jul 11, 2017 22:12
--- NOTE | 2017-07-11 16:23 | HHI.PR ---
Subjective Remarks Patient complains of mouth pain and painful swallowing. Denies shortness of breath or cough. Denies abdominal pain. Denies GI bleeding however he told oncology service he has a bloody BM this morning. Discussed with at bedside. Objective Vitals Vital Signs Date Time Temp Pulse Resp B/P (MAP) Pulse Ox O2 Delivery O2 Flow Rate FiO2 07/11/17 15:00 68 07/11/17 12:00 97.8 80 20 133/76 (95) 95 07/11/17 12:00 79 07/11/17 10:30 95 Nasal Cannula 3.00 07/11/17 09:56 20 07/11/17 08:00 94 Nasal Cannula 3.00 07/11/17 08:00 65 07/11/17 08:00 98.2 65 18 145/73 (97) 94 07/11/17 05:59 98.0 66 15 141/70 (93) 96 07/11/17 04:22 66 07/11/17 00:14 98.1 81 20 131/91 (104) 95 07/11/17 00:02 90 07/10/17 20:35 Nasal Cannula 4.00 31 07/10/17 20:34 98.0 85 18 110/59 (76) 98 07/10/17 20:07 101 07/10/17 17:32 94 Nasal Cannula 4.00 I/O 07/10/17 07/10/17 07/10/17 07/11/17 07/11/17 07/11/17 07:00 15:00 23:00 07:00 15:00 23:00 Intake Total 240 ml Output Total 500 ml 200 ml 700 ml Balance -500 ml 40 ml -700 ml Intake Oral 240 ml Output Urine Total 500 ml 200 ml 700 ml # Voids 2 # Bowel Movements 3 1 Result Diagram: 07/11/17 0553 07/10/17 1240 Objective Remarks GENERAL: Well-nourished, well-developed pleasant elderly obese male patient. SKIN: Warm and dry. Multiple tattoos on extremities. HEAD: Normocephalic. EYES: No scleral icterus. No injection or drainage. NECK: Supple, trachea midline. No JVD or lymphadenopathy. CARDIOVASCULAR: Regular rate and rhythm without murmurs, gallops, or rubs. RESPIRATORY: Breath sounds equal bilaterally. No accessory muscle use. GASTROINTESTINAL: Abdomen soft, non-tender, nondistended. EXTREMITIES: No cyanosis, or edema. NEUROLOGICAL: Awake, alert, and oriented x 3. Non-focal. Procedures Echo 06/26/2017 Mildly dilated left ventricle. The left ventricular systolic function is mildly reduced with an estimated ejection fraction in the range of 45- 50%. Wall thickness is normal. A pacemaker wire is noted. There is a pacemaker wire present in the right atrial cavity. [id number] mitral valve regurgitation. There is trace tricuspid valve regurgitation. A/P Problem List: (1) Diverticulosis ICD Code: K57.90 - Diverticulosis of intestine, part unspecified, without perforation or abscess without bleeding (2) ALEJANDRA (obstructive sleep apnea) ICD Code: G47.33 - Obstructive sleep apnea (adult) (pediatric) Status: Chronic (3) Acute respiratory failure ICD Code: J96.00 - Acute respiratory failure, unspecified whether with hypoxia or hypercapnia (4) Acute kidney injury ICD Code: N17.9 - Acute kidney failure, unspecified Status: Acute (5) Thrombocytopenia ICD Code: D69.6 - Thrombocytopenia, unspecified Status: Acute (6) Macrocytic anemia ICD Code: D53.9 - Nutritional anemia, unspecified Status: Chronic (7) Diabetes mellitus ICD Code: E11.9 - Type 2 diabetes mellitus without complications (8) Chronic systolic heart failure ICD Code: I50.22 - Chronic systolic (congestive) heart failure Status: Chronic (9) Sepsis ICD Code: A41.9 - Sepsis, unspecified organism Status: Acute (10) GI bleed ICD Code: K92.2 - Gastrointestinal hemorrhage, unspecified Status: Acute (11) Bacteremia due to Klebsiella pneumoniae ICD Code: R78.81 - Bacteremia Status: Acute (12) Ileus ICD Code: K56.7 - Ileus, unspecified Status: Resolved (13) Candidiasis of mouth and esophagus ICD Code: B37.81 - Candidal esophagitis; B37.0 - Candidal stomatitis Status: Acute (14) Pneumonia ICD Code: J18.9 - Pneumonia, unspecified organism Status: Acute (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, BCR/ABL-positive, not having achieved remission Status: Chronic (16) Pancytopenia ICD Code: D61.818 - Other pancytopenia Status: Chronic (17) COPD (chronic obstructive pulmonary disease) ICD Code: J44.9 - Chronic obstructive pulmonary disease, unspecified Status: Chronic (18) Acute renal failure ICD Code: N17.9 - Acute kidney failure, unspecified Status: Acute (19) Iron deficiency anemia ICD Code: D50.9 - Iron deficiency anemia, unspecified Status: Acute (20) AICD (automatic cardioverter/defibrillator) present ICD Code: Z95.810 - Presence of automatic (implantable) cardiac defibrillator Status: Acute (21) Anemia associated with acute blood loss ICD Code: D62 - Acute posthemorrhagic anemia Status: Acute (22) Cardiomyopathy ICD Code: I42.9 - Cardiomyopathy, unspecified Status: Chronic (23) Left bundle branch block ICD Code: I44.7 - Left bundle-branch block, unspecified Status: Chronic (24) Paroxysmal ventricular tachycardia ICD Code: I47.2 - Ventricular tachycardia Status: Resolved Assessment and Plan 82-year-old male who was admitted on 06/24/2017 due to abdominal pain. He complained of right upper and lower quadrant abdominal pain radiating to his back. Patient was found to be hypotensive and received 4 L of normal saline. Lactate was essentially normal. CT abdomen pelvis showed diverticulosis, edematous gallbladder with some stones. Patient received vancomycin and Zosyn in the emergency department. He was managed in the ICU and required Levophed for hypotension. He had acute kidney injury as well which improved gradually. Sepsis, hypotension - resolved. blood cultures 07/06 were positive for Klebsiella pneumoniae, also has a left lower lobe lung consolidation. on zosyn per ID. blood culture 07/08 with staph epidermidis likely contaminant. Abdominal pain, Ileus - resolve s/p NG tube. . - Cont. Lactulose, Senna, Pericolace, Dulcolax supp Probable hospital-acquired pneumonia - Previous chest x-rays and CT abdomen pelvis did not identify any lung infiltrates. However, repeat CT 07/05 did show LLL consolidation. Infectious disease reconsulted and recommends IV zosyn for now. - Encouraged pt to use IS q1hr while awake. Chronic pain - cont methadone 2.5 mg twice a day and morphine 2 mg IV every 3 hours when necessary. Oral thrush, and odynophagia - sucralfate was ordered by oncology team. - on nystatin and magic mouth wash - GI aware and following. Hematochezia - bleeding scan 07/10 negative. -H&H stable -GI ff -cont protonix Pancytopenia, CML - Heme/onc following. - Gleevec resumed today. - No anti-coagulation due to pancytopenia. HIT negative. -Follow CBC Acute kidney injury Chronic kidney disease possibly stage 3-4 - Creatinine is much improved from 4.68 on admission, now down to 1.90. Nephrology is following. -Being diuresis per nephrology. Sodium is increasing and is now 150, will repeat BMP in the morning. - Chronic systolic congestive heart failure - Echo from this admission shows ejection fraction 45-50% - Continue Lasix IV 40 mg twice a day. Monitor BMP. - Buttock and leg wounds: wound care following and has made recs, appreciate assistance -History of ventricular tachycardia status post AICD. Continue amiodarone. -DVT px - SCDs. No anti-coagulation due to thrombocytopenia, hematology recommendations. PT/OT following Discharge Planning Will require SNF when stable for DC. Problem Qualifiers (1) Diverticulosis: (2) Acute respiratory failure: Qualified Codes: J96.02 - Acute respiratory failure with hypercapnia (3) Diabetes mellitus: Qualified Codes: E11.8 - Type 2 diabetes mellitus with unspecified complications (4) Pneumonia: Yisel Linares MD Jul 11, 2017 16:23
--- NOTE | 2017-07-11 16:28 | HHI.GIFU ---
Subjective Remarks Resting in bed. States he had 3 loose stools, no further bleeding today. Tolerating diet. (Ela Johnson) Objective Vitals I&O Vital Signs Date Time Temp Pulse Resp B/P (MAP) Pulse Ox O2 Delivery O2 Flow Rate FiO2 07/11/17 15:00 68 07/11/17 12:00 97.8 80 20 133/76 (95) 95 07/11/17 12:00 79 07/11/17 10:30 95 Nasal Cannula 3.00 07/11/17 09:56 20 07/11/17 08:00 94 Nasal Cannula 3.00 07/11/17 08:00 65 07/11/17 08:00 98.2 65 18 145/73 (97) 94 07/11/17 05:59 98.0 66 15 141/70 (93) 96 07/11/17 04:22 66 07/11/17 00:14 98.1 81 20 131/91 (104) 95 07/11/17 00:02 90 07/10/17 20:35 Nasal Cannula 4.00 31 07/10/17 20:34 98.0 85 18 110/59 (76) 98 07/10/17 20:07 101 07/10/17 17:32 94 Nasal Cannula 4.00 I/O 07/10/17 07/10/17 07/10/17 07/11/17 07/11/17 07/11/17 07:00 15:00 23:00 07:00 15:00 23:00 Intake Total 240 ml Output Total 500 ml 200 ml 700 ml Balance -500 ml 40 ml -700 ml Intake Oral 240 ml Output Urine Total 500 ml 200 ml 700 ml # Voids 2 # Bowel Movements 3 1 Laboratory Laboratory Tests Test 07/11/17 00:10 07/11/17 05:53 Stool C. difficile Toxin (PCR) NEGATIVE Stl C. difficile Toxin Epiderm 027 PRESUMPTIVE NEGATIVE White Blood Count 7.8 Red Blood Count 2.83 Hemoglobin 9.1 Hematocrit 28.0 Mean Corpuscular Volume 99.1 Mean Corpuscular Hemoglobin 32.3 Mean Corpuscular Hemoglobin Concent 32.5 Red Cell Distribution Width 20.0 Platelet Count 107 Mean Platelet Volume 9.2 CBC Comment AUTO DIFF Differential Total Cells Counted 100 Neutrophils % (Manual) 74 Band Neutrophils % 14 Lymphocytes % 8 Monocytes % 1 Neutrophils # (Manual) 7.1 Metamyelocytes 1 Myelocytes 2 Differential Comment FINAL DIFF MANUAL Toxic Granulation 2+ Platelet Estimate LOW Platelet Morphology Comment NORMAL Date/Time Source Procedure Growth Status 07/08/17 06:32 Blood Peripheral Aerobic Blood Culture - Final Staphylococcus Epidermidis Complete 07/08/17 06:32 Blood Peripheral Anaerobic Blood Culture - Final QNS - SEE AEROBE REPORT Complete 07/10/17 08:22 Stool Stool Stool Occult Blood (EVELIA) - Final HEMOCCULT NEGATIVE Complete 07/05/17 21:00 Sputum Expectorated Sputum Gram Stain - Final Complete 07/05/17 21:00 Sputum Culture - Final Klebsiella Pneumoniae Pseudomonas Aeruginosa Complete 06/24/17 15:55 Urine Catheterized Urine Urine Culture - Final NO GROWTH IN 48 HOURS. Complete Imaging Last Impressions GI Bleed Scan Nuclear Medicine 07/10/17 0000 Signed Impressions: Service Date/Time: June 16:42 - CONCLUSION: No active gastrointestinal bleeding Alli Teague MD Abdomen X-Ray 07/08/17 0600 Signed Impressions: Service Date/Time: Saturday, July 08, 2017 04:09 - CONCLUSION: Negative KUB. Alli Schroeder MD Abdomen/Pelvis CT 07/05/17 0000 Signed Impressions: Service Date/Time: Wednesday, July 05, 2017 15:06 - CONCLUSION: 1. Left lower lobe consolidation. 2. Dilated loops of proximal and mid small bowel. 3. Stable distal abdominal aortic aneurysm. 4. Stable sigmoid diverticulosis without evidence of diverticulitis. David Gutierrez MD Chest X-Ray 06/29/17 0000 Signed Impressions: Service Date/Time: Thursday, June 29, 2017 08:22 - CONCLUSION: Mild bibasilar atelectasis. Mild compensated and unchanged cardiomegaly. Alli Hansen MD Hepatobiliary Scan Nuclear Medicine 06/25/17 0000 Signed Impressions: Service Date/Time: Sunday, June 25, 2017 10:43 - CONCLUSION: 1. No evidence for cystic duct obstruction. 2. Biliary enteric reflux. Braulio Sellers MD Physical Exam HEENT: Normocephalic; atraumatic ,no jaundice, skin color pale, mild thrush CHEST: Course breath sounds, some wheezing CARDIAC: RRR. ABDOMEN: Soft, nontender, no hepatomegaly, bowel sounds present EXTREMITIES: BLE edema PATIENT'S LIBRARIAN: Lethargic, follows commands (Ela Johnson) Assessment and Plan Plan ASSESSMENT - Bloody diarrhea. Had blood stool 07/10. Bleeding scan (07/10/17)---> no active GI bleeding. No further episodes today. CDiff negative. No abdominal pain, nausea, vomiting. No further bleeding. .0. - Ileus. Improved. Tolerating diet. - GERD, PPI - Anemia. S/P 2 units PRBC. .0 - LEESA, nephrology following - ALEJANDRA, Resp. insuff. Improved. On n/c. - DM, CHF, Hx CML with leukopenia, per attending. - Thrush. Nystatin and Magic mouthwash which is effective. PLAN - GREGORIA - Add Probiotics - PPI - Monitor labs - Encourage mobility out of bed daily in chair, working with physical therapy - Further recommendations to follow based on results of above - Pt seen and examined by Dr. Saab and myself and this note is written on her behalf (Ela Johnson) Physician Comments seen, examined agree with above possible egd/colon next week based on clinical status (Viviana Saab MD) Ela Johnson Jul 11, 2017 16:28 Viviana Saab MD Jul 11, 2017 18:58
[2017-07-11] MEDS: LACTOBACILLUS ACIDOPHILUS TAB PO SCH (18:00)
--- NOTE | 2017-07-11 18:43 | HHI.IDPN ---
Note Infectious Disease Note Chart reviewed. Noted oral thrush like symptoms and difficulty swallowing. Noted patient on oral prednisone as well as Solumedrol unsure why both. Will nolan Hudson MD. Cultures reviewed. Blood cultures repeat are negative. Appears to be transient Kleb pneumo bacteremia likely related to Kleb pneumonia. Kleb pneumo and PSAE both sensitive to Levaquin. Recs DC Zosyn IV Start Levaquin oral (recommend an additional 8 days and based on follow up exams and CXR) Start Diflucan oral for 5 days. Follow repeat blood cultures. Recommend follow up CXR Recommend 12 lead EKG to follow QT interval. Hospitalist to address continuing need for both types of steroids (IV and oral prednisone) Vital Signs Date Time Temp Pulse Resp B/P (MAP) Pulse Ox O2 Delivery O2 Flow Rate FiO2 07/11/17 17:52 95 Nasal Cannula 3.00 07/11/17 15:00 68 07/11/17 12:00 97.8 80 20 133/76 (95) 95 07/11/17 12:00 79 07/11/17 10:30 95 Nasal Cannula 3.00 07/11/17 09:56 20 07/11/17 08:00 94 Nasal Cannula 3.00 07/11/17 08:00 65 07/11/17 08:00 98.2 65 18 145/73 (97) 94 07/11/17 05:59 98.0 66 15 141/70 (93) 96 07/11/17 04:22 66 07/11/17 00:14 98.1 81 20 131/91 (104) 95 07/11/17 00:02 90 07/10/17 20:35 Nasal Cannula 4.00 31 07/10/17 20:34 98.0 85 18 110/59 (76) 98 07/10/17 20:07 101 Laboratory Tests Test 07/11/17 00:10 07/11/17 05:53 Stool C. difficile Toxin (PCR) NEGATIVE Stl C. difficile Toxin Epiderm 027 PRESUMPTIVE NEGATIVE White Blood Count 7.8 TH/MM3 Red Blood Count 2.83 MIL/MM3 Hemoglobin 9.1 GM/DL Hematocrit 28.0 % Mean Corpuscular Volume 99.1 FL Mean Corpuscular Hemoglobin 32.3 PG Mean Corpuscular Hemoglobin Concent 32.5 % Red Cell Distribution Width 20.0 % Platelet Count 107 TH/MM3 Mean Platelet Volume 9.2 FL CBC Comment AUTO DIFF Differential Total Cells Counted 100 Neutrophils % (Manual) 74 % Band Neutrophils % 14 % Lymphocytes % 8 % Monocytes % 1 % Neutrophils # (Manual) 7.1 TH/MM3 Metamyelocytes 1 % Myelocytes 2 % Differential Comment FINAL DIFF MANUAL Toxic Granulation 2+ Platelet Estimate LOW Platelet Morphology Comment NORMAL Rosio Mtz MD Jul 11, 2017 18:42
[2017-07-11] MEDS ORDERED: LEVOFLOXACIN 750 MG TAB PO SCH (18:45)
[2017-07-11] MEDS: BISACODYL EC 5 MG TABEC PO SCH (21:00)
[2017-07-11] MEDS: FLUCONAZOLE 100 MG TAB PO SCH (23:25)
[2017-07-11] MEDS: IMATINIB MESYLATE 100 MG TAB PO SCH (23:29)
[2017-07-12] VITALS (13 sets, daily range): BP systolic 97–129; BP diastolic 64–81; PULSE 69–97; RESP 16–20; TEMP 97–99.1; O2SAT 93–100
[2017-07-12] MEDS: CHLORHEXIDINE GLUCONATE 2 % 1 PACK (2 CLOTHS) TOP SCH (04:00)
[2017-07-12 05:51] LABS: AUTOMATED NEUTROPHIL # 6.5 TH/MM3 (1.8-7.7); EOSINOPHIL % 0.1 % (0.0-4.0); HEMATOCRIT 22.8 % (39.0-51.0); HEMOGLOBIN 7.7 GM/DL (13.0-17.0); LYMPH % 8.1 % (9.0-44.0); LYMPHOCYTE # 0.6 TH/MM3 (1.0-4.8); MEAN CORPUSCULAR HEMOGLOBIN 32.9 PG (27.0-34.0); MEAN CORPUSCULAR HGB CONC 33.5 % (32.0-36.0); MEAN PLATELET VOLUME 9.1 FL (7.0-11.0); MONO % 1.6 % (0.0-8.0); MONOCYTE # 0.1 TH/MM3 (0-0.9); NEUT % 90.2 % (16.0-70.0); PLATELET COUNT 120 TH/MM3 (150-450); RED BLOOD COUNT 2.33 MIL/MM3 (4.50-5.90); RED CELL DISTRIBUTION WIDTH 19.7 % (11.6-17.2); WHITE BLOOD COUNT 7.2 TH/MM3 (4.0-11.0)
[2017-07-12] MEDS: NYSTATIN 100,000 U/GM OINT 15 GM TUBE TOPICAL SCH ×3 (06:00→22:18)
[2017-07-12 06:10] LABS: BICARBONATE 39.2 MEQ/L (21.0-32.0); CALCIUM 7.3 MG/DL (8.5-10.1); CREATININE 1.61 MG/DL (0.60-1.30)
[2017-07-12 06:23] LABS: CALCIUM-PROTEIN CORRECTED 8.7 MG/DL (8.5-10.1); TOTAL PROTEIN 4.6 GM/DL (6.4-8.2)
[2017-07-12] MEDS ORDERED: IMATINIB MESYLATE 100 MG TAB PO SCH (09:00)
[2017-07-12] MEDS: LACTOBACILLUS ACIDOPHILUS TAB PO SCH ×3 (09:00→18:00)
[2017-07-12] MEDS: SENNOSIDES SYRUP 8.8 MG/5 ML CUP PO SCH (09:00)
[2017-07-12] MEDS: MICONAZOLE NITRATE 2% CREAM 15 GM TOPICAL SCH ×2 (09:00→22:19)
[2017-07-12] MEDS: SODIUM CHLORIDE 0.9% FLUSH 10 ML FLUSH IV FLUSH SCH ×3 (09:00→22:18)
[2017-07-12] MEDS: SUCRALFATE 1 GM/10 ML CUP PO SCH ×4 (09:20→22:12)
[2017-07-12] MEDS: NYSTATIN SUSP 500,000 U/5 ML CUP SWISH-SWAL SCH ×4 (09:20→22:12)
[2017-07-12] MEDS: NYSTAT/DIPHENHY/LIDO MOUTHWASH (Adult) 120ML SWISH-SWAL SCH ×4 (09:20→22:12)
[2017-07-12] MEDS: methylPREDNISolone SOD SUCC 40 MG/1 ML VIAL IV PUSH SCH (09:21)
[2017-07-12] MEDS: FUROSEMIDE 40 MG/4 ML VIAL IV PUSH SCH (09:21)
[2017-07-12] MEDS: AMIODARONE 200 MG TAB PO SCH (09:25)
[2017-07-12] MEDS: PANTOPRAZOLE SOD 40 MG DELAYED RELEASE TAB PO SCH ×2 (09:25→22:12)
[2017-07-12] MEDS: DOCUSATE SODIUM 50 MG/SENNA 8.6 MG TAB PO SCH ×2 (09:25→21:00)
[2017-07-12] MEDS: FLUCONAZOLE 100 MG TAB PO SCH (09:25)
[2017-07-12] MEDS: METHADONE HCL 10 MG/10 ML ORAL SOLUTION PO SCH ×2 (09:30→21:00)
[2017-07-12] MEDS: INSULIN NovoLIN REGULAR SUPPLEMENTAL SCALE SQ SCH ×4 (09:32→22:54)
[2017-07-12] MEDS ORDERED: SODIUM CHLOR 0.9% 250 ML INJ 250 ML IV ONE (10:15)
--- NOTE | 2017-07-12 10:27 | HHI.NPPN ---
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 I was called to see the patient because of elevated BUN and creatinine. Additional Remarks Patient is alert,started eating better, with nasal cannula. Objective Data Data Vital Signs Date Time Temp Pulse Resp B/P (MAP) Pulse Ox O2 Delivery O2 Flow Rate FiO2 07/12/17 07:43 95 Nasal Cannula 3.00 07/12/17 04:14 77 07/12/17 00:30 16 07/11/17 23:00 Room Air 21 07/11/17 20:18 88 07/11/17 20:00 98.1 79 18 125/71 (89) 99 07/11/17 17:52 95 Nasal Cannula 3.00 07/11/17 16:00 97.8 80 20 133/76 (95) 95 07/11/17 15:00 68 07/11/17 12:00 97.8 80 20 133/76 (95) 95 07/11/17 12:00 79 07/11/17 10:30 95 Nasal Cannula 3.00 -: 07/12/17 0535 07/12/17 0535 Physical Exam General Appearance: No Acute Distress, Comfortable Eyes Eye Exam: Pupils Equal Throat Throat Exam: Oral Mucosa [place] & Moist Neck Neck Exam: Neck Supple Pulmonary Resp Exam: Breath Sounds Equal, No Distress, Rhonchi, Sputum, Decreased Bases Cardiology CV Exam: Regular, Normal Sinus Rhythm Gastrointestinal/Abdomen GI Exam: Soft, Non-Tender, Bowel Sounds Present Extremeties Extremities Exam: Moderate Edema, Pitting Edema, Dependent Edema Neurologic Neuro Exam: Alert, Awake, Oriented Psychiatric Psych Exam: Appropriate Responses Assessment/Plan Assessment Summary: LEESA/Acute Renal Failure, Hypertension, CKD Stage IV Problem List: (1) COPD (chronic obstructive pulmonary disease) ICD Codes: J44.9 - Chronic obstructive pulmonary disease, unspecified Status: Chronic (2) Bronchitis ICD Codes: J40 - Bronchitis, not specified as acute or chronic Status: Acute (3) HTN (hypertension) ICD Codes: I10 - Essential (primary) hypertension Status: Chronic (4) Diabetes mellitus ICD Codes: E11.9 - Type 2 diabetes mellitus without complications (5) Acute respiratory failure ICD Codes: J96.00 - Acute respiratory failure, unspecified whether with hypoxia or hypercapnia (6) Severe sepsis ICD Codes: A41.9 - Sepsis, unspecified organism; R65.20 - Severe sepsis without septic shock Status: Acute (7) Acute kidney injury ICD Codes: N17.9 - Acute kidney failure, unspecified Status: Acute Plan Patient has been non oliguric. Has Chronic kidney disease, possibly stage 3- 4. Now develop LEESA. K is normal, on Zosyn. ID is following. Creatinine is better. Continue diuretics, edema is improving. Lasix decreased to 20 mg BID. GI is following. Problem Qualifiers (1) Diabetes mellitus: Qualified Codes: E11.8 - Type 2 diabetes mellitus with unspecified complications (2) Acute respiratory failure: Qualified Codes: J96.02 - Acute respiratory failure with hypercapnia Bismark Woods MD Jul 12, 2017 10:27
[2017-07-12] MEDS: SODIUM CHLORIDE 0.9% FLUSH 10 ML FLUSH IV FLUSH PRN (10:40)
[2017-07-12] MEDS: MORPHINE SULFATE 2 MG/ML INJ IV PUSH PRN ×2 (10:40→18:23)
--- NOTE | 2017-07-12 13:16 | HHI.PR ---
Subjective Remarks Patient denies dyspnea or pain. GREENHOUSE STAFF noted that his stool appeared dark in color. Patient has not noticed any GI bleeding. Hemoglobin is decreased and transfusion has been ordered. Objective Vitals Vital Signs Date Time Temp Pulse Resp B/P (MAP) Pulse Ox O2 Delivery O2 Flow Rate FiO2 07/12/17 08:00 75 07/12/17 08:00 98 Room Air 07/12/17 08:00 97.0 77 20 129/81 (97) 98 07/12/17 07:43 95 Nasal Cannula 3.00 07/12/17 04:14 77 07/12/17 00:30 16 07/11/17 23:00 Room Air 21 07/11/17 20:18 88 07/11/17 20:00 98.1 79 18 125/71 (89) 99 07/11/17 17:52 95 Nasal Cannula 3.00 07/11/17 16:00 97.8 80 20 133/76 (95) 95 07/11/17 15:00 68 I/O 07/11/17 07/11/17 07/11/17 07/12/17 07/12/17 07/12/17 07:00 15:00 23:00 07:00 15:00 23:00 Intake Total 1000 ml Output Total 700 ml 650 ml 1050 ml Balance -700 ml 350 ml -1050 ml Intake Oral 1000 ml Output Urine Total 700 ml 650 ml 1050 ml # Voids 1 # Bowel Movements 1 3 Result Diagram: 07/12/17 0535 07/12/17 0535 Objective Remarks GENERAL: Well-nourished, well-developed pleasant elderly obese male patient. SKIN: Warm and dry. Multiple tattoos on extremities. HEAD: Normocephalic. EYES: No scleral icterus. No injection or drainage. NECK: Supple, trachea midline. No JVD or lymphadenopathy. CARDIOVASCULAR: Regular rate and rhythm without murmurs, gallops, or rubs. RESPIRATORY: Breath sounds equal bilaterally. No accessory muscle use. GASTROINTESTINAL: Abdomen soft, non-tender, nondistended. EXTREMITIES: No cyanosis, or edema. NEUROLOGICAL: Awake, alert, and oriented x 3. Non-focal. Procedures Echo 06/26/2017 Mildly dilated left ventricle. The left ventricular systolic function is mildly reduced with an estimated ejection fraction in the range of 45- 50%. Wall thickness is normal. A pacemaker wire is noted. There is a pacemaker wire present in the right atrial cavity. [id number] mitral valve regurgitation. There is trace tricuspid valve regurgitation. A/P Problem List: (1) Diverticulosis ICD Code: K57.90 - Diverticulosis of intestine, part unspecified, without perforation or abscess without bleeding (2) ALEJANDRA (obstructive sleep apnea) ICD Code: G47.33 - Obstructive sleep apnea (adult) (pediatric) Status: Chronic (3) Acute respiratory failure ICD Code: J96.00 - Acute respiratory failure, unspecified whether with hypoxia or hypercapnia (4) Acute kidney injury ICD Code: N17.9 - Acute kidney failure, unspecified Status: Acute (5) Thrombocytopenia ICD Code: D69.6 - Thrombocytopenia, unspecified Status: Acute (6) Macrocytic anemia ICD Code: D53.9 - Nutritional anemia, unspecified Status: Chronic (7) Diabetes mellitus ICD Code: E11.9 - Type 2 diabetes mellitus without complications (8) Chronic systolic heart failure ICD Code: I50.22 - Chronic systolic (congestive) heart failure Status: Chronic (9) Sepsis ICD Code: A41.9 - Sepsis, unspecified organism Status: Acute (10) GI bleed ICD Code: K92.2 - Gastrointestinal hemorrhage, unspecified Status: Acute (11) Bacteremia due to Klebsiella pneumoniae ICD Code: R78.81 - Bacteremia Status: Acute (12) Ileus ICD Code: K56.7 - Ileus, unspecified Status: Resolved (13) Candidiasis of mouth and esophagus ICD Code: B37.81 - Candidal esophagitis; B37.0 - Candidal stomatitis Status: Acute (14) Pneumonia ICD Code: J18.9 - Pneumonia, unspecified organism Status: Acute (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, BCR/ABL-positive, not having achieved remission Status: Chronic (16) Pancytopenia ICD Code: D61.818 - Other pancytopenia Status: Chronic (17) COPD (chronic obstructive pulmonary disease) ICD Code: J44.9 - Chronic obstructive pulmonary disease, unspecified Status: Chronic (18) Acute renal failure ICD Code: N17.9 - Acute kidney failure, unspecified Status: Acute (19) Iron deficiency anemia ICD Code: D50.9 - Iron deficiency anemia, unspecified Status: Acute (20) AICD (automatic cardioverter/defibrillator) present ICD Code: Z95.810 - Presence of automatic (implantable) cardiac defibrillator Status: Acute (21) Anemia associated with acute blood loss ICD Code: D62 - Acute posthemorrhagic anemia Status: Acute (22) Cardiomyopathy ICD Code: I42.9 - Cardiomyopathy, unspecified Status: Chronic (23) Left bundle branch block ICD Code: I44.7 - Left bundle-branch block, unspecified Status: Chronic (24) Paroxysmal ventricular tachycardia ICD Code: I47.2 - Ventricular tachycardia Status: Resolved Assessment and Plan 82-year-old male who was admitted on 06/24/2017 due to abdominal pain. He complained of right upper and lower quadrant abdominal pain radiating to his back. Patient was found to be hypotensive and received 4 L of normal saline. Lactate was essentially normal. CT abdomen pelvis showed diverticulosis, edematous gallbladder with some stones. Patient received vancomycin and Zosyn in the emergency department. He was managed in the ICU and required Levophed for hypotension. He had acute kidney injury as well which improved gradually. 1. Sepsis, hypotension - resolved. blood cultures 07/06 were positive for Klebsiella pneumoniae, also has a left lower lobe lung consolidation. blood culture 07/08 with staph epidermidis likely contaminant. On antibiotics per ID. 2. Abdominal pain, Ileus - resolve s/p NG tube. - Cont. Lactulose, Senna, Pericolace, Dulcolax supp 3. Hospital-acquired pneumonia - Previous chest x-rays and CT abdomen pelvis did not identify any lung infiltrates. However, abd CT 07/05 did show LLL consolidation. Infectious disease following, patient was on Zosyn now transition to Levaquin by mouth. - Patient was unable to swallow the Levaquin by mouth due to odynophagia, I changed this to IV route. -Repeat cxr in a.m. Check EKG in a.m. to ensure no QT prolongation. 4. COPD - followed by Dr. Escamilla as outpatient. Patient has been on Solu- Medrol, I will change to by mouth prednisone and taper. Duo nebs as needed. 5. Chronic pain - cont methadone 2.5 mg twice a day and morphine 2 mg IV every 3 hours when necessary. 6. Oral thrush, and odynophagia - sucralfate was ordered by oncology team. - on nystatin and magic mouth wash. Will give lidocaine swish and spit prior to taking by mouth meds. - GI aware and following. Possible EGD if no improvement in symptoms. 7. Hematochezia - bleeding scan 07/10 negative. -H&H declined today to 7.7, will transfuse 2 units packed red blood cells. -GI ff -cont protonix 8. Pancytopenia, CML - Heme/onc following. - Gleevec resumed 07/11 - No anti-coagulation due to pancytopenia. HIT negative. -Follow CBC 9. 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 Nephrology is following. -Being diuresed per nephrology. 10. Hypernatremia -Sodium is increasing and is now 151, will repeat BMP in the morning. Consider DC Lasix. 11. Chronic systolic congestive heart failure - Echo from this admission shows ejection fraction 45-50% - on Lasix IV 40 mg twice a day. Monitor BMP. 12. Buttock and leg wounds: wound care following and has made recs, appreciate assistance 13. History of ventricular tachycardia status post AICD. Continue amiodarone. 14. DVT px - SCDs. No anti-coagulation due to thrombocytopenia, hematology recommendations. PT/OT following DO NOT RESUSCITATE status Discharge Planning Will require SNF when stable for DC. Problem Qualifiers (1) Diverticulosis: (2) Acute respiratory failure: Qualified Codes: J96.02 - Acute respiratory failure with hypercapnia (3) Diabetes mellitus: Qualified Codes: E11.8 - Type 2 diabetes mellitus with unspecified complications (4) Pneumonia: Yisel Linares MD Jul 12, 2017 13:16
--- NOTE | 2017-07-12 17:03 | HHI.GIFU ---
GI Follow-up Note Consult Follow-up Subjective: Patient laying in bed comfortably, still odynophagia.Has some dark stools today, hb dropeed-receiving 2 units of PRBC.Denies nausea,vomiting, abdominal pain.Discussed about egd/colonoscopy-will agree with an EGD-at this time Objective: PHYSICAL EXAMINATION: Vitals signs stable No fever Vital Signs Date Time Temp Pulse Resp B/P (MAP) Pulse Ox O2 Delivery O2 Flow Rate FiO2 07/12/17 16:54 97.9 69 18 124/76 98 07/12/17 16:28 97.9 72 18 124/76 99 07/12/17 16:26 97.6 97 18 124/76 96 07/12/17 14:04 97.9 74 18 97/68 100 07/12/17 13:44 99.1 77 18 111/64 100 HEENT: Pupils round and reactive to light; normocephalic; atraumatic; no jaundice. tongue dry , dark color coating , painful NECK: Neck is supple, no JVD, no lymphadenopathy. CHEST: Chest is clear to auscultation and percussion. CARDIAC: Regular rate and rhythm with no murmur gallop or rubs. ABDOMEN: Soft, nondistended, nontender; no hepatosplenomegaly; bowel sounds are present in all four quadrants. EXTREMITIES: No clubbing, cyanosis, or edema. SKIN: Normal; no rash; no jaundice. ACCOUNTS PAYABLE PAYROLL COORDINATOR: No focal deficits; alert and oriented times three. Available Data (labs, X- Rays, Procedues) : Laboratory Tests Test 07/11/17 00:10 07/11/17 05:53 07/12/17 05:35 Stool C. difficile Toxin (PCR) NEGATIVE Stl C. difficile Toxin Epiderm 027 PRESUMPTIVE NEGATIVE White Blood Count 7.8 TH/MM3 7.2 TH/MM3 Red Blood Count 2.83 MIL/MM3 2.33 MIL/MM3 Hemoglobin 9.1 GM/DL 7.7 GM/DL Hematocrit 28.0 % 22.8 % Mean Corpuscular Volume 99.1 FL 98.0 FL Mean Corpuscular Hemoglobin 32.3 PG 32.9 PG Mean Corpuscular Hemoglobin Concent 32.5 % 33.5 % Red Cell Distribution Width 20.0 % 19.7 % Platelet Count 107 TH/MM3 120 TH/MM3 Mean Platelet Volume 9.2 FL 9.1 FL CBC Comment AUTO DIFF AUTO DIFF Differential Total Cells Counted 100 Neutrophils % (Manual) 74 % Band Neutrophils % 14 % Lymphocytes % 8 % Monocytes % 1 % Neutrophils # (Manual) 7.1 TH/MM3 Metamyelocytes 1 % Myelocytes 2 % Differential Comment FINAL DIFF MANUAL AUTO DIFF CONFIRMED Toxic Granulation 2+ Platelet Estimate LOW Platelet Morphology Comment NORMAL Neutrophils (%) (Auto) 90.2 % Lymphocytes (%) (Auto) 8.1 % Monocytes (%) (Auto) 1.6 % Eosinophils (%) (Auto) 0.1 % Basophils (%) (Auto) 0.0 % Neutrophils # (Auto) 6.5 TH/MM3 Lymphocytes # (Auto) 0.6 TH/MM3 Monocytes # (Auto) 0.1 TH/MM3 Eosinophils # (Auto) 0.0 TH/MM3 Basophils # (Auto) 0.0 TH/MM3 Blood Urea Nitrogen 44 MG/DL Creatinine 1.61 MG/DL Random Glucose 226 MG/DL Total Protein 4.6 GM/DL Calcium Level 7.3 MG/DL Sodium Level 152 MEQ/L Potassium Level 3.6 MEQ/L Chloride Level 109 MEQ/L Carbon Dioxide Level 39.2 MEQ/L Anion Gap 4 MEQ/L Estimat Glomerular Filtration Rate 41 ML/MIN Protein Corrected Calcium 8.7 MG/DL ASSESSMENT/PLAN: gi bleeding-hemodynamically stable CLL oral thrush r/o herpes, cmv Recommendation transfuse 2 units of prbc cbc post prbc egd in am unless indicated otherwise colonoscopy if agrees ppi It was a pleasure seeing Remi Tabares Thank you for this consult. Entered by: Viviana Kaba MD Jul 12, 2017 17:03
[2017-07-12] MEDS: FUROSEMIDE 20 MG/2 ML VIAL IV PUSH SCH (18:16)
[2017-07-12] MEDS: BISACODYL EC 5 MG TABEC PO SCH (21:00)
[2017-07-12] MEDS: IMATINIB MESYLATE 100 MG TAB PO SCH (22:16)
[2017-07-12] MEDS: predniSONE 20 MG TAB PO SCH (22:21)
[2017-07-13] VITALS (7 sets, daily range): BP systolic 100–118; BP diastolic 57–72; PULSE 77–86; RESP 18–20; TEMP 97.8–98.5; O2SAT 95–98
[2017-07-13 03:51] LABS: HEMATOCRIT 27.2 % (39.0-51.0); HEMOGLOBIN 9.2 GM/DL (13.0-17.0); MEAN CELL VOLUME 93.9 FL (80.0-100.0); MEAN CORPUSCULAR HEMOGLOBIN 31.8 PG (27.0-34.0); MEAN CORPUSCULAR HGB CONC 33.9 % (32.0-36.0); MEAN PLATELET VOLUME 8.9 FL (7.0-11.0); PLATELET COUNT 125 TH/MM3 (150-450); RED CELL DISTRIBUTION WIDTH 19.6 % (11.6-17.2); WHITE BLOOD COUNT 9.2 TH/MM3 (4.0-11.0)
[2017-07-13] MEDS: CHLORHEXIDINE GLUCONATE 2 % 1 PACK (2 CLOTHS) TOP SCH (04:00)
[2017-07-13 04:21] LABS: BANDS 6 % (0-6); LYMPHOCYTES 2 % (9-44); METAMYELOCYTES 2 % (0-1); POLYS (SEG NEUTROPHILS) 90 % (16-70)
[2017-07-13 04:33] LABS: BICARBONATE 40.2 MEQ/L (21.0-32.0); CALCIUM 7.4 MG/DL (8.5-10.1); CREATININE 1.57 MG/DL (0.60-1.30)
[2017-07-13 05:00] LABS: CALCIUM-PROTEIN CORRECTED 8.8 MG/DL (8.5-10.1); TOTAL PROTEIN 4.6 GM/DL (6.4-8.2)
--- NOTE | 2017-07-13 05:12 | RADRPT ---
EXAM DATE/TIME: 07/13/2017 04:40 [facility] COMPARISON: CHEST SINGLE AP, June 29, 2017, 8:22. INDICATIONS : Shortness of breath, possible pneumothorax. MEDICAL HISTORY : Leukemia. Congestive heart failure. Myocardial infarction. SURGICAL HISTORY : Pacemaker. ENCOUNTER: Subsequent ACUITY: 2 weeks PAIN SCORE: 0/10 LOCATION: Bilateral chest FINDINGS: Portable AP view of the chest demonstrates a normal-sized cardiac silhouette. Left chest wall cardiac pacing device as AICD is present. Lungs are underinflated with mild left basilar opacity. No pneumot horax is identified. Bones and soft tissues demonstrate no acute finding. CONCLUSION: Mild left basilar opacity could represent atelectasis or consolidation. No pneumothorax is present. Alli Cohen MD on July 13, 2017 at 5:09 Board Certified Radiologist. This report was verified electronically.
[2017-07-13] MEDS: NYSTATIN 100,000 U/GM OINT 15 GM TUBE TOPICAL SCH ×3 (06:00→20:14)
[2017-07-13] MEDS: INSULIN NovoLIN REGULAR SUPPLEMENTAL SCALE SQ SCH ×4 (08:00→20:29)
[2017-07-13] MEDS: SUCRALFATE 1 GM/10 ML CUP PO SCH ×4 (08:37→20:12)
[2017-07-13] MEDS: FUROSEMIDE 20 MG/2 ML VIAL IV PUSH SCH (08:37)
[2017-07-13] MEDS: NYSTATIN SUSP 500,000 U/5 ML CUP SWISH-SWAL SCH ×4 (08:37→20:12)
[2017-07-13] MEDS: NYSTAT/DIPHENHY/LIDO MOUTHWASH (Adult) 120ML SWISH-SWAL SCH ×4 (08:37→20:13)
[2017-07-13] MEDS: AMIODARONE 200 MG TAB PO SCH (08:38)
[2017-07-13] MEDS: predniSONE 20 MG TAB PO SCH (08:38)
[2017-07-13] MEDS: FLUCONAZOLE 100 MG TAB PO SCH (08:38)
[2017-07-13] MEDS: PANTOPRAZOLE SOD 40 MG DELAYED RELEASE TAB PO SCH ×2 (08:38→20:12)
[2017-07-13] MEDS: LACTOBACILLUS ACIDOPHILUS TAB PO SCH ×3 (08:38→16:37)
[2017-07-13] MEDS: SENNOSIDES SYRUP 8.8 MG/5 ML CUP PO SCH (08:39)
[2017-07-13] MEDS: DOCUSATE SODIUM 50 MG/SENNA 8.6 MG TAB PO SCH ×2 (08:39→20:12)
[2017-07-13] MEDS: METHADONE HCL 10 MG/10 ML ORAL SOLUTION PO SCH ×2 (08:39→20:12)
[2017-07-13] MEDS: MICONAZOLE NITRATE 2% CREAM 15 GM TOPICAL SCH ×2 (08:40→20:13)
[2017-07-13] MEDS: SODIUM CHLORIDE 0.9% FLUSH 10 ML FLUSH IV FLUSH SCH ×3 (08:40→20:10)
[2017-07-13] MEDS ORDERED: PHENYLEPH/NS 1000 MCG/10 ML SYR IV ONE (12:00)
[2017-07-13] MEDS ORDERED: PROPOFOL 200 MG/20 ML AMP IV ONE (12:00)
--- NOTE | 2017-07-13 12:32 | HHI.NPPN ---
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 I was called to see the patient because of elevated BUN and creatinine. Additional Remarks Patient is alert, with nasal cannula, not in distress. Objective Data Data Vital Signs Date Time Temp Pulse Resp B/P (MAP) Pulse Ox O2 Delivery O2 Flow Rate FiO2 07/13/17 08:00 98.0 78 18 118/70 (86) 95 07/13/17 08:00 Nasal Cannula 3.00 07/13/17 00:05 77 07/12/17 22:32 16 07/12/17 22:31 Room Air 3.00 07/12/17 22:00 98.6 78 16 123/74 (90) 96 07/12/17 20:30 78 07/12/17 20:22 93 Nasal Cannula 3.00 07/12/17 19:06 84 18 112/72 97 07/12/17 17:38 98.7 71 18 127/73 (91) 95 07/12/17 16:54 97.9 69 18 124/76 98 07/12/17 16:28 97.9 72 18 124/76 99 07/12/17 16:26 97.6 97 18 124/76 96 07/12/17 14:04 97.9 74 18 97/68 100 07/12/17 13:44 99.1 77 18 111/64 100 -: 07/13/17 0314 07/13/17 0314 Physical Exam General Appearance: No Acute Distress, Comfortable Eyes Eye Exam: Pupils Equal Throat Throat Exam: Oral Mucosa Raoul & Moist Neck Neck Exam: Neck Supple Pulmonary Resp Exam: Breath Sounds Equal, No Distress, Rhonchi, Sputum, Decreased Bases Cardiology CV Exam: Regular, Normal Sinus Rhythm Gastrointestinal/Abdomen GI Exam: Soft, Non-Tender, Bowel Sounds Present Extremeties Extremities Exam: Moderate Edema, Pitting Edema, Dependent Edema Neurologic Neuro Exam: Alert, Awake, Oriented Psychiatric Psych Exam: Appropriate Responses Assessment/Plan Assessment Summary: LEESA/Acute Renal Failure, Hypertension, CKD Stage IV Problem List: (1) COPD (chronic obstructive pulmonary disease) ICD Codes: J44.9 - Chronic obstructive pulmonary disease, unspecified Status: Chronic (2) Bronchitis ICD Codes: J40 - Bronchitis, not specified as acute or chronic Status: Acute (3) HTN (hypertension) ICD Codes: I10 - Essential (primary) hypertension Status: Chronic (4) Diabetes mellitus ICD Codes: E11.9 - Type 2 diabetes mellitus without complications (5) Acute respiratory failure ICD Codes: J96.00 - Acute respiratory failure, unspecified whether with hypoxia or hypercapnia (6) Severe sepsis ICD Codes: A41.9 - Sepsis, unspecified organism; R65.20 - Severe sepsis without septic shock Status: Acute (7) Acute kidney injury ICD Codes: N17.9 - Acute kidney failure, unspecified Status: Acute Plan Patient has been non oliguric. Has Chronic kidney disease, possibly stage 3- 4. Now develop LEESA. K is normal, on Zosyn. ID is following. Creatinine is stable. Continue diuretics, edema is improving. Lasix stopped. Avoid Nephrotoxins, Lasix as needed. Follow the urine out put and BMP. Problem Qualifiers (1) Diabetes mellitus: Qualified Codes: E11.8 - Type 2 diabetes mellitus with unspecified complications (2) Acute respiratory failure: Qualified Codes: J96.02 - Acute respiratory failure with hypercapnia Bismark Woods MD Jul 13, 2017 12:32
--- NOTE | 2017-07-13 13:28 | HHI.PR ---
Subjective Remarks Patient is in a bad mood, hungry due to being nothing by mouth for EGD. Discussed with nurse he will go down to endoscopy lab in about 30 minutes. Patient denies dyspnea. Objective Vitals Vital Signs Date Time Temp Pulse Resp B/P (MAP) Pulse Ox O2 Delivery O2 Flow Rate FiO2 07/13/17 11:05 98 Nasal Cannula 2.00 07/13/17 08:00 98.0 78 18 118/70 (86) 95 07/13/17 08:00 Nasal Cannula 3.00 07/13/17 00:05 77 07/12/17 22:32 16 07/12/17 22:31 Room Air 3.00 07/12/17 22:00 98.6 78 16 123/74 (90) 96 07/12/17 20:30 78 07/12/17 20:22 93 Nasal Cannula 3.00 07/12/17 19:06 84 18 112/72 97 07/12/17 17:38 98.7 71 18 127/73 (91) 95 07/12/17 16:54 97.9 69 18 124/76 98 07/12/17 16:28 97.9 72 18 124/76 99 07/12/17 16:26 97.6 97 18 124/76 96 07/12/17 14:04 97.9 74 18 97/68 100 07/12/17 13:44 99.1 77 18 111/64 100 I/O 07/12/17 07/12/17 07/12/17 07/13/17 07/13/17 07/13/17 07:00 15:00 23:00 07:00 15:00 23:00 Intake Total 2195 ml Output Total 1050 ml 625 ml 350 ml Balance -1050 ml 1570 ml -350 ml Intake Oral 960 ml Packed Cells 1235 ml Output Urine Total 1050 ml 625 ml 350 ml # Voids 2 # Bowel Movements 6 Result Diagram: 07/13/1731307/13/17313 Objective Remarks GENERAL: Well-nourished, well-developed pleasant elderly obese male patient. SKIN: Warm and dry. Multiple tattoos on extremities. HEAD: Normocephalic. EYES: No scleral icterus. No injection or drainage. NECK: Supple, trachea midline. No JVD or lymphadenopathy. CARDIOVASCULAR: Regular rate and rhythm without murmurs, gallops, or rubs. RESPIRATORY: Breath sounds equal bilaterally. No accessory muscle use. Mild end expiratory wheezing. GASTROINTESTINAL: Abdomen soft, non-tender, nondistended. EXTREMITIES: No cyanosis, or edema. NEUROLOGICAL: Awake, alert, and oriented x 3. Non-focal. Procedures Echo 06/26/2017 Mildly dilated left ventricle. The left ventricular systolic function is mildly reduced with an estimated ejection fraction in the range of 45- 50%. Wall thickness is normal. A pacemaker wire is noted. There is a pacemaker wire present in the right atrial cavity. [id number]-[id number] mitral valve regurgitation. There is trace tricuspid valve regurgitation. A/P Problem List: (1) Diverticulosis ICD Code: K57.90 - Diverticulosis of intestine, part unspecified, without perforation or abscess without bleeding (2) ALEJANDRA (obstructive sleep apnea) ICD Code: G47.33 - Obstructive sleep apnea (adult) (pediatric) Status: Chronic (3) Acute respiratory failure ICD Code: J96.00 - Acute respiratory failure, unspecified whether with hypoxia or hypercapnia (4) Acute kidney injury ICD Code: N17.9 - Acute kidney failure, unspecified Status: Acute (5) Thrombocytopenia ICD Code: D69.6 - Thrombocytopenia, unspecified Status: Acute (6) Macrocytic anemia ICD Code: D53.9 - Nutritional anemia, unspecified Status: Chronic (7) Diabetes mellitus ICD Code: E11.9 - Type 2 diabetes mellitus without complications (8) Chronic systolic heart failure ICD Code: I50.22 - Chronic systolic (congestive) heart failure Status: Chronic (9) Sepsis ICD Code: A41.9 - Sepsis, unspecified organism Status: Acute (10) GI bleed ICD Code: K92.2 - Gastrointestinal hemorrhage, unspecified Status: Acute (11) Bacteremia due to Klebsiella pneumoniae ICD Code: R78.81 - Bacteremia Status: Acute (12) Ileus ICD Code: K56.7 - Ileus, unspecified Status: Resolved (13) Candidiasis of mouth and esophagus ICD Code: B37.81 - Candidal esophagitis; B37.0 - Candidal stomatitis Status: Acute (14) Pneumonia ICD Code: J18.9 - Pneumonia, unspecified organism Status: Acute (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, BCR/ABL-positive, not having achieved remission Status: Chronic (16) Pancytopenia ICD Code: D61.818 - Other pancytopenia Status: Chronic (17) COPD (chronic obstructive pulmonary disease) ICD Code: J44.9 - Chronic obstructive pulmonary disease, unspecified Status: Chronic (18) Acute renal failure ICD Code: N17.9 - Acute kidney failure, unspecified Status: Acute (19) Iron deficiency anemia ICD Code: D50.9 - Iron deficiency anemia, unspecified Status: Acute (20) AICD (automatic cardioverter/defibrillator) present ICD Code: Z95.810 - Presence of automatic (implantable) cardiac defibrillator Status: Acute (21) Anemia associated with acute blood loss ICD Code: D62 - Acute posthemorrhagic anemia Status: Acute (22) Cardiomyopathy ICD Code: I42.9 - Cardiomyopathy, unspecified Status: Chronic (23) Left bundle branch block ICD Code: I44.7 - Left bundle-branch block, unspecified Status: Chronic (24) Paroxysmal ventricular tachycardia ICD Code: I47.2 - Ventricular tachycardia Status: Resolved Assessment and Plan 82-year-old male who was admitted on 06/24/2017 due to abdominal pain. He complained of right upper and lower quadrant abdominal pain radiating to his back. Patient was found to be hypotensive and received 4 L of normal saline. Lactate was essentially normal. CT abdomen pelvis showed diverticulosis, edematous gallbladder with some stones. Patient received vancomycin and Zosyn in the emergency department. He was managed in the ICU and required Levophed for hypotension. He had acute kidney injury as well which improved gradually. 1. Sepsis, hypotension - resolved. blood cultures 07/06 were positive for Klebsiella pneumoniae, also has a left lower lobe lung consolidation. blood culture 07/08 with staph epidermidis likely contaminant. On antibiotics per ID/ levaquin. 2. Abdominal pain, Ileus - resolve s/p NG tube. - Cont. Lactulose, Senna, Pericolace, Dulcolax supp 3. Hospital-acquired pneumonia - Previous chest x-rays and CT abdomen pelvis did not identify any lung infiltrates. However, abd CT 07/05 did show LLL consolidation. Infectious disease following, patient was on Zosyn now transition to Levaquin by mouth. - Patient was unable to swallow the Levaquin by mouth due to odynophagia, I changed this to IV route. -Repeat cxr today showed left lower lobe infiltrate. EKG with QTc - 456. 4. COPD - followed by Dr. Escamilla as outpatient. Patient has been on Solu- Medrol, I will change to by mouth prednisone and taper. Duo nebs as needed. 5. Chronic pain - cont methadone 2.5 mg twice a day and morphine 2 mg IV every 3 hours when necessary. 6. Oral thrush, and odynophagia - sucralfate was ordered by oncology team. - on nystatin and magic mouth wash. lidocaine swish and spit prior to taking by mouth meds. - GI aware and following. For EGD today. 7. Hematochezia - bleeding scan 07/10 negative. -H&H decliend to 7.7 and he was transfused 2 units packed red blood cells on 07/12 - hb 9 today. -GI ff, EGD today -cont protonix, monitor H&H 8. Pancytopenia, CML - Heme/onc following. - Gleevec resumed 07/11 - No anti-coagulation due to pancytopenia. HIT negative. -Follow CBC 9. 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 Nephrology is following. -Being diuresed per nephrology. Will hold lasix due to hypernatremia 10. Hypernatremia -Sodium is increasing and is now 151, DC lasix, will repeat BMP in the morning. 11. Chronic systolic congestive heart failure - Echo from this admission shows ejection fraction 45-50% 12. Buttock and leg wounds: wound care following and has made recs, appreciate assistance 13. History of ventricular tachycardia status post AICD. Continue amiodarone. 14. DVT px - SCDs. No anti-coagulation due to thrombocytopenia, hematology recommendations. PT/OT following DO NOT RESUSCITATE status Discharge Planning Will require SNF when stable for DC. Problem Qualifiers (1) Diverticulosis: (2) Acute respiratory failure: Qualified Codes: J96.02 - Acute respiratory failure with hypercapnia (3) Diabetes mellitus: Qualified Codes: E11.8 - Type 2 diabetes mellitus with unspecified complications (4) Pneumonia: Yisel Linares MD Jul 13, 2017 13:28
[2017-07-13] MEDS ORDERED: KETAMINE HCL 500 MG/5 ML VIAL ONE (14:14)
[2017-07-13] MEDS ORDERED: MIDAZOLAM HCL 2 MG/2 ML VIAL ONE (14:30)
[2017-07-13] MEDS ORDERED: RESP: LIDOCAINE HCL 4% PF 5 ML NEB ONE (14:40)
--- NOTE | 2017-07-13 15:06 | GIPROC ---
[facility] [address] [facility]. [facility], [address] EGD PROCEDURE REPORT EXAM DATE: 07/13/2017 PATIENT NAME: Remi Tabares MR #: [id number] BIRTHDATE: 1935 ATTENDING: Viviana Saab MD ORDER #: [id number] HIDE MILL WORKER: Michael Kauffman and Sanna Humphrey STATUS: inpatient INDICATIONS: The patient is a 82 yr old male here for an EGD due to gi bleeding, anemia PROCEDURE PERFORMED: EGD w/ biopsy MEDICATIONS: None and Per Anesthesia. TOPICAL ANESTHETIC: none CONSENT: The patient understands the risks and benefits of the procedure and understands that these risks include, but are not limited to: sedation, allergic reaction, infection, perforation and/or bleeding. Alternative means of evaluation and treatment include, among others: physical exam, x-rays, and/or surgical intervention. The patient elects to proceed with this endoscopic procedure. medical equipment was checked for proper function. Hand hygiene and appropriate measures for infection prevention was taken. After the risks, benefits and alternatives of the procedure were thoroughly explained, Informed consent was verified, confirmed and timeout was successfully executed by the treatment team. The patient was anesthetized with topical anesthesia and the Pentax [id number] endoscope was introduced through the mouth and advanced to the second portion of the duodenum. Retroflexed views revealed a hiatal hernia The gastroscope was then slowly withdrawn and removed. Gastritis antrum-biopsy esophagitis -distal esophagus-biopsy r/o CMV, herpes. ADVERSE EVENTS: There were no complications. IMPRESSIONS: 1. Gastritis antrum-biopsy esophagitis -distal esophagus-biopsy r/o CMV, herpes 2. Retroflexed views revealed a hiatal hernia RECOMMENDATIONS: 1. Await biopsy results. Biopsy results will not be ready for 7-10 days. If you don't hear from us in two weeks, call our office for biopsy results. 2. Continue PPI 3. Clear liquid colonoscopy in am PATIENT CONDITION: stable DISPOSITION: Inpatient REPEAT EXAM: Return 1 year EGD Viviana Saab MD eSigned: Viviana Saab MD 07/13/2017 3:06 PM cc:
[2017-07-13] MEDS ORDERED: BISACODYL EC 5 MG TABEC PO ONE (15:15)
[2017-07-13] MEDS ORDERED: MAGNESIUM CITRATE SOLN 300 ML BTL PO ONE (15:15)
[2017-07-13] MEDS: IMATINIB MESYLATE 100 MG TAB PO SCH (20:11)
[2017-07-13] MEDS: predniSONE 10 MG TAB PO SCH (20:12)
[2017-07-13] MEDS: BISACODYL EC 5 MG TABEC PO SCH (20:29)
[2017-07-13] MEDS ORDERED: SODIUM CHLORID 0.9% 500 ML IV PRN (20:45)
[2017-07-13] MEDS ORDERED: LACTATED RINGER'S 1000 ML IV PRN (20:45)
[2017-07-13] MEDS ORDERED: CHLORHEXIDINE GLUCONATE 2 % 1 PACK (2 CLOTHS) TOPICAL PRN (20:45)
[2017-07-13] MEDS ORDERED: POVIDONE IODINE 5% (ANTISEPSIS KIT) 4 APPLICATIONS EACH NARE PRN (20:45)
--- NOTE | 2017-07-13 22:03 | EKG ---
Date Performed: 07/13/2017 Time Performed: 10:59:03 PTAGE: 82 years EKG: Sinus rhythm WITH OCCASIONAL VENTRICULAR PREMATURE COMPLEXES LBBB ABNORMAL ECG PREVIOUS TRACING : 06/24/2017 15.05 Compared to the previous tracing PVCs are new DOCTOR: Thierno Weaver Interpretating Date/Time 07/13/2017 22:03:19
[2017-07-13] MEDS: LEVOFLOXACIN 750 MG PREMIX INJ 150 ML IV SCH (23:07)
[2017-07-14] VITALS (8 sets, daily range): BP systolic 97–121; BP diastolic 48–74; PULSE 80–118; RESP 13–18; TEMP 97.7–99.4; O2SAT 91–99
[2017-07-14] MEDS: CHLORHEXIDINE GLUCONATE 2 % 1 PACK (2 CLOTHS) TOP SCH (02:47)
[2017-07-14] MEDS: NYSTATIN 100,000 U/GM OINT 15 GM TUBE TOPICAL SCH ×3 (04:34→21:25)
[2017-07-14 06:31] LABS: AUTOMATED NEUTROPHIL # 7.9 TH/MM3 (1.8-7.7); BASOPHIL % 0.1 % (0.0-2.0); HEMATOCRIT 24.9 % (39.0-51.0); HEMOGLOBIN 8.6 GM/DL (13.0-17.0); LYMPHOCYTE # 0.8 TH/MM3 (1.0-4.8); MEAN CELL VOLUME 94.5 FL (80.0-100.0); MEAN CORPUSCULAR HEMOGLOBIN 32.5 PG (27.0-34.0); MEAN CORPUSCULAR HGB CONC 34.4 % (32.0-36.0); MEAN PLATELET VOLUME 9.2 FL (7.0-11.0); MONO % 2.9 % (0.0-8.0); MONOCYTE # 0.3 TH/MM3 (0-0.9); PLATELET COUNT 137 TH/MM3 (150-450); RED BLOOD COUNT 2.63 MIL/MM3 (4.50-5.90); RED CELL DISTRIBUTION WIDTH 19.4 % (11.6-17.2); WHITE BLOOD COUNT 8.9 TH/MM3 (4.0-11.0)
[2017-07-14 06:49] LABS: BICARBONATE 37.4 MEQ/L (21.0-32.0); CALCIUM 7.6 MG/DL (8.5-10.1); CREATININE 1.74 MG/DL (0.60-1.30)
[2017-07-14] MEDS: SUCRALFATE 1 GM/10 ML CUP PO SCH ×4 (08:00→21:00)
[2017-07-14] MEDS: INSULIN NovoLIN REGULAR SUPPLEMENTAL SCALE SQ SCH ×4 (08:00→21:00)
[2017-07-14] MEDS: METHADONE HCL 10 MG/10 ML ORAL SOLUTION PO SCH ×2 (08:24→21:18)
[2017-07-14] MEDS: SODIUM CHLORIDE 0.9% FLUSH 10 ML FLUSH IV FLUSH SCH ×3 (08:25→21:08)
[2017-07-14] MEDS: NYSTAT/DIPHENHY/LIDO MOUTHWASH (Adult) 120ML SWISH-SWAL SCH ×4 (08:25→21:00)
[2017-07-14] MEDS: MICONAZOLE NITRATE 2% CREAM 15 GM TOPICAL SCH ×2 (08:28→16:07)
[2017-07-14] MEDS: DOCUSATE SODIUM 50 MG/SENNA 8.6 MG TAB PO SCH ×2 (09:00→21:00)
[2017-07-14] MEDS: PANTOPRAZOLE SOD 40 MG DELAYED RELEASE TAB PO SCH ×2 (09:00→21:23)
[2017-07-14] MEDS: AMIODARONE 200 MG TAB PO SCH (09:00)
[2017-07-14] MEDS: NYSTATIN SUSP 500,000 U/5 ML CUP SWISH-SWAL SCH ×4 (09:00→21:00)
[2017-07-14] MEDS: SENNOSIDES SYRUP 8.8 MG/5 ML CUP PO SCH (09:00)
[2017-07-14] MEDS: LACTOBACILLUS ACIDOPHILUS TAB PO SCH ×3 (09:00→18:08)
[2017-07-14] MEDS: predniSONE 10 MG TAB PO SCH ×2 (09:00→21:00)
--- NOTE | 2017-07-14 10:26 | GIPROC ---
[facility] [address] [facility]. [facility], [address] COLONOSCOPY PROCEDURE REPORT EXAM DATE: 07/14/2017 PATIENT NAME: Remi Tabares MR #: [id number] BIRTHDATE: 1935 ENDOSCOPIST: Cady Bower MD ORDER #: [id number] ANTITANK ASSAULT GUNNER: Jesusita Hancock and Kristi Valerio STATUS: inpatient INDICATIONS: The patient is a 82 yr old male here for a colonoscopy due to iron deficiency anemia PROCEDURE PERFORMED: Colonoscopy, incomplete MEDICATIONS: None and Per Anesthesia. PREP QUALITY: poor PREP TYPE:GoLytely ESTIMATED BLOOD LOSS: None CONSENT: The patient understands the risks and benefits of the procedure and understands that these risks include, but are not limited to: sedation, allergic reaction, infection, perforation and/or bleeding. Alternative means of evaluation and treatment include, among others: physical exam, x-rays, and/or surgical intervention. The patient elects to proceed with this endoscopic procedure. medical equipment was checked for proper function. Hand hygiene and appropriate measures for infection prevention was taken. After the risks, benefits and alternatives of the procedure were thoroughly explained, Informed consent was verified, confirmed and timeout was successfully executed by the treatment team. A digital exam revealed external hemorrhoids The Pentax [id number] endoscope was introduced through the anus and advanced to the sigmoid colon. The instrument was then slowly withdrawn as the colon was fully examined. COLON FINDINGS: The colonic mucosa appeared normal. Retroflexed views revealed internal hemorrhoids and Retroflexed views revealed medium internal hemorrhoids The scope was then completely withdrawn from the patient and the procedure terminated. ADVERSE EVENTS: There were no complications. IMPRESSIONS: 1. The colonic mucosa appeared normal 2. Retroflexed views revealed internal hemorrhoids 3. Retroflexed views revealed medium internal hemorrhoids 4. Revealed external hemorrhoids RECOMMENDATIONS: Repeat colonoscopy tomorrow. RECALL: Return 1 day Colonoscopy Cady Bower MD eSigned: Cady Bower MD 07/14/2017 10:26 AM cc:
[2017-07-14] MEDS ORDERED: PEG (High)/E-LYTE SOLN 4000 ML BTL PO ONE (10:30)
[2017-07-14] MEDS ORDERED: DO NOT ADM ANY ANTICOAGULANT DRUGS PRN (10:42)
--- NOTE | 2017-07-14 11:29 | HHI.PR ---
Subjective Remarks In better spirits today, s/p EGD yesterday and going for colonoscopy today. Denies pain or dyspnea. Objective Vitals Vital Signs Date Time Temp Pulse Resp B/P (MAP) Pulse Ox O2 Delivery O2 Flow Rate FiO2 07/14/17 11:00 93 17 108/58 (75) 96 Nasal Cannula 2 07/14/17 10:45 88 15 102/55 (71) 96 Nasal Cannula 2 07/14/17 10:40 98.3 94 15 122/80 (94) 98 Nasal Cannula 2 07/14/17 08:12 Nasal Cannula 2.50 07/14/17 08:12 98.1 85 16 113/53 (73) 07/14/17 04:00 97.7 88 18 121/51 (74) 93 07/14/17 00:00 98.4 80 18 97/54 (68) 99 07/13/17 20:45 95 Nasal Cannula 2.00 07/13/17 20:00 98.5 86 20 118/72 (87) 97 07/13/17 20:00 82 07/13/17 20:00 97 Nasal Cannula 3.00 07/13/17 16:58 97.8 80 18 100/62 (75) 95 07/13/17 12:30 98.4 78 18 111/57 (75) 97 I/O 07/13/17 07/13/17 07/13/17 07/14/17 07/14/17 07/14/17 07:00 15:00 23:00 07:00 15:00 23:00 Intake Total 100 ml 360 ml 510 ml Output Total 350 ml 550 ml 650 ml Balance -350 ml 100 ml -190 ml -140 ml Intake Oral 0 ml 360 ml 510 ml Other 100 ml Output Urine Total 350 ml 550 ml 650 ml # Voids 2 # Bowel Movements 0 2 Result Diagram: 07/14/17 0510 07/14/17 0510 Objective Remarks GENERAL: Well-nourished, well-developed pleasant elderly obese male patient. SKIN: Warm and dry. Multiple tattoos on extremities. HEAD: Normocephalic. EYES: No scleral icterus. No injection or drainage. NECK: Supple, trachea midline. No JVD or lymphadenopathy. CARDIOVASCULAR: Regular rate and rhythm without murmurs, gallops, or rubs. RESPIRATORY: Breath sounds equal bilaterally. No accessory muscle use. CTAB. GASTROINTESTINAL: Abdomen soft, non-tender, nondistended. EXTREMITIES: No peripheral edema. NEUROLOGICAL: Awake, alert, and oriented x 3. Non-focal. Procedures Echo 06/26/2017 Mildly dilated left ventricle. The left ventricular systolic function is mildly reduced with an estimated ejection fraction in the range of 45- 50%. Wall thickness is normal. A pacemaker wire is noted. There is a pacemaker wire present in the right atrial cavity. [id number] mitral valve regurgitation. There is trace tricuspid valve regurgitation. A/P Problem List: (1) Diverticulosis ICD Code: K57.90 - Diverticulosis of intestine, part unspecified, without perforation or abscess without bleeding (2) ALEJANDRA (obstructive sleep apnea) ICD Code: G47.33 - Obstructive sleep apnea (adult) (pediatric) Status: Chronic (3) Acute respiratory failure ICD Code: J96.00 - Acute respiratory failure, unspecified whether with hypoxia or hypercapnia (4) Acute kidney injury ICD Code: N17.9 - Acute kidney failure, unspecified Status: Acute (5) Thrombocytopenia ICD Code: D69.6 - Thrombocytopenia, unspecified Status: Acute (6) Macrocytic anemia ICD Code: D53.9 - Nutritional anemia, unspecified Status: Chronic (7) Diabetes mellitus ICD Code: E11.9 - Type 2 diabetes mellitus without complications (8) Chronic systolic heart failure ICD Code: I50.22 - Chronic systolic (congestive) heart failure Status: Chronic (9) Sepsis ICD Code: A41.9 - Sepsis, unspecified organism Status: Acute (10) GI bleed ICD Code: K92.2 - Gastrointestinal hemorrhage, unspecified Status: Acute (11) Bacteremia due to Klebsiella pneumoniae ICD Code: R78.81 - Bacteremia Status: Acute (12) Ileus ICD Code: K56.7 - Ileus, unspecified Status: Resolved (13) Candidiasis of mouth and esophagus ICD Code: B37.81 - Candidal esophagitis; B37.0 - Candidal stomatitis Status: Acute (14) Pneumonia ICD Code: J18.9 - Pneumonia, unspecified organism Status: Acute (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, BCR/ABL-positive, not having achieved remission Status: Chronic (16) Pancytopenia ICD Code: D61.818 - Other pancytopenia Status: Chronic (17) COPD (chronic obstructive pulmonary disease) ICD Code: J44.9 - Chronic obstructive pulmonary disease, unspecified Status: Chronic (18) Acute renal failure ICD Code: N17.9 - Acute kidney failure, unspecified Status: Acute (19) Iron deficiency anemia ICD Code: D50.9 - Iron deficiency anemia, unspecified Status: Acute (20) AICD (automatic cardioverter/defibrillator) present ICD Code: Z95.810 - Presence of automatic (implantable) cardiac defibrillator Status: Acute (21) Anemia associated with acute blood loss ICD Code: D62 - Acute posthemorrhagic anemia Status: Acute (22) Cardiomyopathy ICD Code: I42.9 - Cardiomyopathy, unspecified Status: Chronic (23) Left bundle branch block ICD Code: I44.7 - Left bundle-branch block, unspecified Status: Chronic (24) Paroxysmal ventricular tachycardia ICD Code: I47.2 - Ventricular tachycardia Status: Resolved Assessment and Plan 82-year-old male who was admitted on 06/24/2017 due to abdominal pain. He complained of right upper and lower quadrant abdominal pain radiating to his back. Patient was found to be hypotensive and received 4 L of normal saline. Lactate was essentially normal. CT abdomen pelvis showed diverticulosis, edematous gallbladder with some stones. Patient received vancomycin and Zosyn in the emergency department. He was managed in the ICU and required Levophed for hypotension. He had acute kidney injury as well which improved gradually. 1. Sepsis, hypotension - resolved. blood cultures 07/06 were positive for Klebsiella pneumoniae, also has a left lower lobe lung consolidation. blood culture 07/08 with staph epidermidis likely contaminant. On antibiotics levaquin per ID/levaquin. 2. Abdominal pain, Ileus - resolve s/p NG tube. - Cont. Lactulose, Senna, Pericolace, Dulcolax supp 3. Hospital-acquired pneumonia - Previous chest x-rays and CT abdomen pelvis did not identify any lung infiltrates. However, abd CT 07/05 did show LLL consolidation. Infectious disease following, patient was on Zosyn now transitioned to Levaquin. -Repeat cxr 07/13 showed left lower lobe infiltrate. EKG 07/13 with QTc - 456. 4. COPD - followed by Dr. Escamilla as outpatient. on prednisone taper. Duo nebs as needed. 5. Chronic pain - cont methadone 2.5 mg twice a day and morphine 2 mg IV every 3 hours when necessary. 6. Oral thrush, and odynophagia - sucralfate was ordered by oncology team. - on nystatin and magic mouth wash. lidocaine swish and spit prior to taking by mouth meds. - GI aware and following. S/p EGD 07/13 showing mild gastritis in the antrum and distal esophagitis - biopsies were taken to r/o CVA/HSV 7. Hematochezia - bleeding scan 07/10 negative. -H&H decliend to 7.7 and he was transfused 2 units packed red blood cells on 07/12 -hb 8-9 now -EGD - mild esophagitis, gastritis -cont protonix, monitor H&H -for colonoscopy today 8. Pancytopenia, CML - Heme/onc following. - Gleevec resumed 07/11 - No anti-coagulation due to pancytopenia. HIT negative. -Follow CBC 9. 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 Nephrology is following. -s/p diuresis. Will hold lasix due to hypernatremia - discussed with Dr. Woods 10. Hypernatremia -improving after holding lasix. repeat BMP in the morning. 11. Chronic systolic congestive heart failure - Echo from this admission shows ejection fraction 45-50% -monitor for any fluid overload, monitor I/O. -start PO lasix when sodium improved. 12. Buttock and leg wounds: wound care following and has made recs, appreciate assistance 13. History of ventricular tachycardia status post AICD. Continue amiodarone. 14. DVT px - SCDs. No anti-coagulation due to thrombocytopenia, hematology recommendations. PT/OT following DO NOT RESUSCITATE status Discharge Planning Will require SNF when stable for DC. Problem Qualifiers (1) Diverticulosis: (2) Acute respiratory failure: Qualified Codes: J96.02 - Acute respiratory failure with hypercapnia (3) Diabetes mellitus: Qualified Codes: E11.8 - Type 2 diabetes mellitus with unspecified complications (4) Pneumonia: Yisel Linares MD Jul 14, 2017 11:29
[2017-07-14] MEDS: FLUCONAZOLE 100 MG TAB PO SCH (12:59)
--- NOTE | 2017-07-14 14:06 | PD.ONC.PN ---
Subjective Subjective Remarks Afebrile overnight. Patient resting in bed with at bedside. Colonoscopy was canceled this morning due to poor prep and hypotension. Per , patient remains confused today. Objective Data Date Time Temp Pulse Resp B/P (MAP) Pulse Ox O2 Delivery O2 Flow Rate FiO2 07/14/17 11:45 96 Nasal Cannula 2.00 07/14/17 11:00 93 17 108/58 (75) 96 Nasal Cannula 2 07/14/17 10:45 88 15 102/55 (71) 96 Nasal Cannula 2 07/14/17 10:40 98.3 94 15 122/80 (94) 98 Nasal Cannula 2 07/14/17 08:12 Nasal Cannula 2.50 07/14/17 08:12 98.1 85 16 113/53 (73) 07/14/17 04:00 97.7 88 18 121/51 (74) 93 07/14/17 00:00 98.4 80 18 97/54 (68) 99 07/13/17 20:45 95 Nasal Cannula 2.00 07/13/17 20:00 98.5 86 20 118/72 (87) 97 07/13/17 20:00 82 07/13/17 20:00 97 Nasal Cannula 3.00 07/13/17 16:58 97.8 80 18 100/62 (75) 95 07/14/17 07/14/17 07/14/17 07:00 15:00 23:00 Intake Total 510 ml Output Total 650 ml Balance -140 ml Result Diagram: 07/14/17 0510 07/14/17 0510 Laboratory Results Laboratory Tests Test 07/14/17 05:10 White Blood Count 8.9 TH/MM3 Red Blood Count 2.63 MIL/MM3 Hemoglobin 8.6 GM/DL Hematocrit 24.9 % Mean Corpuscular Volume 94.5 FL Mean Corpuscular Hemoglobin 32.5 PG Mean Corpuscular Hemoglobin Concent 34.4 % Red Cell Distribution Width 19.4 % Platelet Count 137 TH/MM3 Mean Platelet Volume 9.2 FL Neutrophils (%) (Auto) 88.0 % Lymphocytes (%) (Auto) 9.0 % Monocytes (%) (Auto) 2.9 % Eosinophils (%) (Auto) 0.0 % Basophils (%) (Auto) 0.1 % Neutrophils # (Auto) 7.9 TH/MM3 Lymphocytes # (Auto) 0.8 TH/MM3 Monocytes # (Auto) 0.3 TH/MM3 Eosinophils # (Auto) 0.0 TH/MM3 Basophils # (Auto) 0.0 TH/MM3 CBC Comment DIFF FINAL Differential Comment Blood Urea Nitrogen 55 MG/DL Creatinine 1.74 MG/DL Random Glucose 221 MG/DL Calcium Level 7.6 MG/DL Sodium Level 151 MEQ/L Potassium Level 3.7 MEQ/L Chloride Level 108 MEQ/L Carbon Dioxide Level 37.4 MEQ/L Anion Gap 6 MEQ/L Estimat Glomerular Filtration Rate 38 ML/MIN Administered Medications Medications (Trade) Dose Ordered Sig/Sunil Route PRN Reason Start Time Stop Time Status Last Admin Dose Admin Sodium Chloride (NS Flush) 2 ml UNSCH PRN IV FLUSH FLUSH AFTER USING IV ACCESS 06/24/17 20:30 07/12/17 10:40 Sodium Chloride (NS Flush) 2 ml BID IV FLUSH 06/24/17 21:00 07/14/17 08:25 Ondansetron HCl (Zofran Inj) 4 mg Q6H PRN IV PUSH NAUSEA OR VOMITING 06/24/17 20:30 07/03/17 17:30 Chlorhexidine Gluconate (Chlorhexidine 2% Cloth) 3 pack Taper DAILY@04 TOP 06/25/17 04:00 06/21/18 03:59 07/01/17 04:00 Senna/Docusate Sodium (Olesya-Colace) 1 tab BID PO 06/24/17 21:00 07/13/17 20:12 Bisacodyl (Dulcolax Supp) 10 mg DAILY PRN RECTAL SEVERE CONSITIPATION 06/24/17 20:30 06/28/17 08:31 Amiodarone HCl (Cordarone) 200 mg DAILY PO 06/25/17 09:00 07/13/17 08:38 Methadone HCl (Methadone Liq) 2.5 mg BID PO 06/24/17 21:00 07/14/17 08:24 Dextrose (D50w (Vial) Inj) 50 ml UNSCH PRN IV PUSH HYPOGLYCEMIA-SEE COMMENTS 06/24/17 20:30 06/24/17 21:15 Sodium Chloride (NS Flush) DAILY IV FLUSH 06/25/17 09:00 07/14/17 09:00 Morphine Sulfate (Morphine Inj) 2 mg Q3H PRN IV PUSH pain 1-5 06/24/17 23:15 07/12/17 18:23 Morphine Sulfate (Morphine Inj) 4 mg Q3H PRN IV PUSH pain 6-10 06/24/17 23:15 07/06/17 02:26 Bisacodyl (Dulcolax Ec) 10 mg HS PO 06/26/17 21:00 07/05/17 21:13 Sennosides (Senna Liq) 8.8 mg DAILY PO 06/28/17 09:00 07/09/17 09:44 Albuterol/ Ipratropium (Duoneb Neb) 1 ampule Q2HR NEB PRN NEB SHORTNESS OF BREATH 06/29/17 08:30 07/13/17 20:43 Insulin Human Regular (NovoLIN R SUPPLEMENTAL SCALE) 1 ACHS SQ 07/02/17 12:00 07/14/17 13:00 Albuterol/ Ipratropium (Duoneb Neb) 1 ampule Q4HR NEB PRN INH SHORTNESS OF BREATH 07/05/17 17:00 07/06/17 20:26 Sucralfate (Carafate Liq) 1 gm ACHS PO 07/09/17 08:00 07/14/17 12:59 Multi-Ingredient Mouthwash/Gargle (Magic Mouthwash Adult Liq) 5 ml QID SWISH-SWAL 07/09/17 09:00 07/14/17 13:00 Nystatin (Mycostatin Liq) 5 ml QID SWISH-SWAL 07/09/17 13:00 07/14/17 12:59 Nystatin (Mycostatin Oint) 1 applic Q8HR TOPICAL 07/09/17 15:15 07/14/17 04:34 Miconazole Nitrate (Micatin 2% Cream) 1 applic Q12HR TOPICAL 07/09/17 21:00 07/14/17 08:28 Imatinib Mesylate (Gleevec) 400 mg HS PO 07/11/17 21:00 07/13/17 20:11 Lactobacillus Acidophilus (Lactinex) 1 tab TID PO 07/11/17 18:00 07/14/17 12:59 Fluconazole (Diflucan) 100 mg DAILY PO 07/11/17 18:45 07/16/17 18:44 07/14/17 12:59 Levofloxacin/ Dextrose 150 ml @ 100 mls/hr Q48H IV 07/13/17 23:00 07/13/17 23:07 Pantoprazole Sodium (Protonix) 40 mg Q12HR PO 07/12/17 21:00 07/13/17 20:12 Prednisone (Deltasone) 10 mg BID PO 07/13/17 21:00 07/13/17 20:12 Objective Remarks GENERAL: chronically ill appearing weak male, lying in bed resting. SKIN: Warm and dry. HEAD: Normocephalic. EYES: No injection or drainage. NECK: Supple, trachea midline. CARDIOVASCULAR: +S1/S2 RESPIRATORY: anterior yates with occasional rhonchi. GASTROINTESTINAL: Abdomen soft, non-tender, nondistended. EXTREMITIES: No cyanosis NEUROLOGICAL: awake. confused. Assessment/Plan Problem List: (1) Pancytopenia ICD Codes: D61.818 - Other pancytopenia Status: Chronic Plan: 06/14/17: Platelet count remains greater than 100k; continue Gleevac. monitor CBC -- Likely due to infection -- No anticoagulation due to thrombocytopenia --HIT negative (2) CML (chronic myelocytic leukemia) ICD Codes: C92.10 - Chronic myeloid leukemia, BCR/ABL-positive, not having achieved remission Status: Chronic Plan: -- Was originally diagnosed in 1998 -- Gleevec resumed on 07/11/17 as platelets greater than 100k. (3) Pneumonia ICD Codes: J18.9 - Pneumonia, unspecified organism Status: Acute Plan: --on Levaquin (4) Candidiasis of mouth and esophagus ICD Codes: B37.81 - Candidal esophagitis; B37.0 - Candidal stomatitis Status: Acute Plan: --on oral Nystatin + diflucan (5) GI bleed ICD Codes: K92.2 - Gastrointestinal hemorrhage, unspecified Status: Acute Plan: --GI following --had colonoscopy planned for 07/14, but was canceled due to incomplete prep. Assessment 82 y/o male with history of CML. hematology consulted for pancytopenia Attending Statement The exam, history, and the medical decision-making described in the above note were completed with the assistance of the mid-level provider. I reviewed and agree with the findings presented. I attest that I had a [id number] encounter with the patient on the same day, and personally performed and documented my assessment and findings in the medical record. pt is confuse. Became hypotensive. Colonoscopy canceled due to poor prep. pt is not getting better, Problem Qualifiers (1) Pneumonia: Mira Zepeda Jul 14, 2017 14:06 Fabrice Patel MD Jul 14, 2017 18:02
--- NOTE | 2017-07-14 19:32 | HHI.NPPN ---
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 I was called to see the patient because of elevated BUN and creatinine. Additional Remarks Patient was seen after colonoscopy, sleepy. Objective Data Data 07/14/17 07/15/17 18:59 06:59 Intake Total 770 ml Output Total 575 ml Balance 195 ml Intake Oral 120 ml Other 650 ml Output Urine Total 575 ml Vital Signs Date Time Temp Pulse Resp B/P (MAP) Pulse Ox O2 Delivery O2 Flow Rate FiO2 07/14/17 17:37 97 Nasal Cannula 2.00 07/14/17 16:15 99.4 93 16 112/74 (87) 97 07/14/17 12:29 98.3 118 16 104/62 (76) 91 07/14/17 11:45 96 Nasal Cannula 2.00 07/14/17 11:00 93 17 108/58 (75) 96 Nasal Cannula 2 07/14/17 10:45 88 15 102/55 (71) 96 Nasal Cannula 2 07/14/17 10:40 98.3 94 15 122/80 (94) 98 Nasal Cannula 2 07/14/17 08:12 Nasal Cannula 2.50 07/14/17 08:12 98.1 85 16 113/53 (73) 07/14/17 04:00 97.7 88 18 121/51 (74) 93 07/14/17 00:00 98.4 80 18 97/54 (68) 99 07/13/17 20:45 95 Nasal Cannula 2.00 07/13/17 20:00 98.5 86 20 118/72 (87) 97 07/13/17 20:00 82 07/13/17 20:00 97 Nasal Cannula 3.00 -: 07/14/17 0510 07/14/17 0510 Physical Exam General Appearance: No Acute Distress, Comfortable Eyes Eye Exam: Pupils Equal Throat Throat Exam: Oral Mucosa [place] & Moist Neck Neck Exam: Neck Supple Pulmonary Resp Exam: Breath Sounds Equal, No Distress, Rhonchi, Sputum, Decreased Bases Cardiology CV Exam: Regular, Normal Sinus Rhythm Gastrointestinal/Abdomen GI Exam: Soft, Non-Tender, Bowel Sounds Present Extremeties Extremities Exam: Moderate Edema, Pitting Edema, Dependent Edema Neurologic Neuro Exam: Alert, Awake, Oriented Psychiatric Psych Exam: Appropriate Responses Assessment/Plan Assessment Summary: LEESA/Acute Renal Failure, Hypertension, CKD Stage IV Problem List: (1) COPD (chronic obstructive pulmonary disease) ICD Codes: J44.9 - Chronic obstructive pulmonary disease, unspecified Status: Chronic (2) Bronchitis ICD Codes: J40 - Bronchitis, not specified as acute or chronic Status: Acute (3) HTN (hypertension) ICD Codes: I10 - Essential (primary) hypertension Status: Chronic (4) Diabetes mellitus ICD Codes: E11.9 - Type 2 diabetes mellitus without complications (5) Acute respiratory failure ICD Codes: J96.00 - Acute respiratory failure, unspecified whether with hypoxia or hypercapnia (6) Severe sepsis ICD Codes: A41.9 - Sepsis, unspecified organism; R65.20 - Severe sepsis without septic shock Status: Acute (7) Acute kidney injury ICD Codes: N17.9 - Acute kidney failure, unspecified Status: Acute Plan Patient has been non oliguric. Has Chronic kidney disease, possibly stage 3- 4. Now develop LEESA. K is normal, on Zosyn. ID is following. Creatinine is stable. Continue diuretics, edema is improving. Lasix stopped. Avoid Nephrotoxins, Lasix as needed. Creatinine is now 1.7, follow the colonoscopy results. Problem Qualifiers (1) Diabetes mellitus: Qualified Codes: E11.8 - Type 2 diabetes mellitus with unspecified complications (2) Acute respiratory failure: Qualified Codes: J96.02 - Acute respiratory failure with hypercapnia Bismark Woods MD Jul 14, 2017 19:32
[2017-07-14] MEDS: BISACODYL EC 5 MG TABEC PO SCH (20:57)
[2017-07-14] MEDS: IMATINIB MESYLATE 100 MG TAB PO SCH (21:00)
[2017-07-14] MEDS: LIDOCAINE VISCOUS 2% SOLN 15 ML UDC SWISH-SPIT PRN (21:08)
[2017-07-15] VITALS (8 sets, daily range): BP systolic 104–127; BP diastolic 53–69; PULSE 77–88; RESP 16–20; TEMP 97.3–99; O2SAT 92–100
[2017-07-15] MEDS: CHLORHEXIDINE GLUCONATE 2 % 1 PACK (2 CLOTHS) TOP SCH (01:25)
[2017-07-15] MEDS: NYSTATIN 100,000 U/GM OINT 15 GM TUBE TOPICAL SCH ×3 (05:09→20:37)
[2017-07-15] MEDS: INSULIN NovoLIN REGULAR SUPPLEMENTAL SCALE SQ SCH ×4 (08:12→20:33)
[2017-07-15] MEDS: SUCRALFATE 1 GM/10 ML CUP PO SCH ×4 (08:18→20:38)
[2017-07-15] MEDS: METHADONE HCL 10 MG/10 ML ORAL SOLUTION PO SCH ×2 (08:18→20:37)
[2017-07-15] MEDS: NYSTATIN SUSP 500,000 U/5 ML CUP SWISH-SWAL SCH ×4 (08:18→20:36)
[2017-07-15] MEDS: NYSTAT/DIPHENHY/LIDO MOUTHWASH (Adult) 120ML SWISH-SWAL SCH ×4 (08:21→20:35)
[2017-07-15] MEDS: DOCUSATE SODIUM 50 MG/SENNA 8.6 MG TAB PO SCH ×2 (08:22→19:22)
[2017-07-15] MEDS: AMIODARONE 200 MG TAB PO SCH (08:22)
[2017-07-15] MEDS: predniSONE 10 MG TAB PO SCH ×2 (08:22→20:36)
[2017-07-15] MEDS: PANTOPRAZOLE SOD 40 MG DELAYED RELEASE TAB PO SCH ×2 (08:22→20:36)
[2017-07-15] MEDS: FLUCONAZOLE 100 MG TAB PO SCH (08:22)
[2017-07-15] MEDS: LACTOBACILLUS ACIDOPHILUS TAB PO SCH ×3 (08:22→18:52)
[2017-07-15] MEDS: LIDOCAINE VISCOUS 2% SOLN 15 ML UDC SWISH-SPIT PRN (08:26)
[2017-07-15] MEDS: SODIUM CHLORIDE 0.9% FLUSH 10 ML FLUSH IV FLUSH PRN ×2 (08:34→20:38)
[2017-07-15] MEDS: SENNOSIDES SYRUP 8.8 MG/5 ML CUP PO SCH (08:36)
[2017-07-15] MEDS: SODIUM CHLORIDE 0.9% FLUSH 10 ML FLUSH IV FLUSH SCH ×3 (09:00→20:38)
--- NOTE | 2017-07-15 09:58 | HHI.GIFU ---
Subjective Remarks Pt resting in bed, napping. C/o sore throat. (Debora Carver PORT ENGINEER) Objective Vitals I&O Vital Signs Date Time Temp Pulse Resp B/P (MAP) Pulse Ox O2 Delivery O2 Flow Rate FiO2 07/15/17 03:27 99.0 88 16 127/69 (88) 92 07/15/17 00:25 99.0 78 16 111/63 (79) 95 07/14/17 20:45 89 07/14/17 20:45 98.7 89 13 113/48 (69) 95 07/14/17 20:45 Nasal Cannula 2.50 07/14/17 17:37 97 Nasal Cannula 2.00 07/14/17 16:15 99.4 93 16 112/74 (87) 97 07/14/17 12:29 98.3 118 16 104/62 (76) 91 07/14/17 11:45 96 Nasal Cannula 2.00 07/14/17 11:00 93 17 108/58 (75) 96 Nasal Cannula 2 07/14/17 10:45 88 15 102/55 (71) 96 Nasal Cannula 2 07/14/17 10:40 98.3 94 15 122/80 (94) 98 Nasal Cannula 2 I/O 07/14/17 07/14/17 07/14/17 07/15/17 07/15/17 07/15/17 07:00 15:00 23:00 07:00 15:00 23:00 Intake Total 510 ml 650 ml 120 ml Output Total 650 ml 775 ml 300 ml Balance -140 ml 650 ml -655 ml -300 ml Intake Oral 510 ml 120 ml Other 650 ml Output Urine Total 650 ml 775 ml 300 ml # Bowel Movements 2 Laboratory Date/Time Source Procedure Growth Status 07/08/17 06:32 Blood Peripheral Aerobic Blood Culture - Final Staphylococcus Epidermidis Complete 07/08/17 06:32 Blood Peripheral Anaerobic Blood Culture - Final QNS - SEE AEROBE REPORT Complete 07/10/17 08:22 Stool Stool Stool Occult Blood (EVELIA) - Final HEMOCCULT NEGATIVE Complete 07/05/17 21:00 Sputum Expectorated Sputum Gram Stain - Final Complete 07/05/17 21:00 Sputum Culture - Final Klebsiella Pneumoniae Pseudomonas Aeruginosa Complete 06/24/17 15:55 Urine Catheterized Urine Urine Culture - Final NO GROWTH IN 48 HOURS. Complete Physical Exam HEENT: Normocephalic; atraumatic ,no jaundice, CHEST: Course breath sounds, wheezes CARDIAC: RRR. ABDOMEN: Soft, nontender, no hepatomegaly, bowel sounds present EXTREMITIES: BUE edema STOREROOM ATTENDANT: Lethargic, follows commands (Debora Carver) Assessment and Plan Plan ASSESSMENT - Bloody diarrhea. Had blood stool 07/10. Bleeding scan (07/10/17)---> no active GI bleeding. CDiff negative. no n/v, diarrhea today. s/p incomplete colonoscopy 07/14/17, hemorrhoids. Refuses further colonoscopy. - Ileus. Improved. Tolerating diet. - GERD, PPI - Anemia. normocytic. no labs today. no obvious bleeding. s/p EGD 07/13/17 found gastritis, esophagitis, hiatal hernia - LEESA, nephrology following - ALEJANDRA, Resp. insuff. Improved. - DM, CHF, Hx CML with leukopenia, per attending. - Thrush. Nystatin and Magic mouthwash which is effective. PLAN - GREGORIA - PPI - Monitor labs - supportive care - GI will sign off. please reconsult if needed - Pt seen and examined by and myself and this note is written on his behalf (Debora Carver) Physician Comments Seen and examined with JOSE, No active bleeding reported. Incomplete colonoscopy yesterday, plan was to repeat today but pt. refusing any further gi liu. Will sign off, reconsult as needed or as outpt. Thank you (Cady Bower MD) Debora Carver Jul 15, 2017 09:58 Cady Bower MD Jul 15, 2017 14:23
--- NOTE | 2017-07-15 10:51 | PD.ONC.PN ---
Subjective Subjective Remarks Afebrile overnight. Patient resting in room. No overnight events. Objective Data Date Time Temp Pulse Resp B/P (MAP) Pulse Ox O2 Delivery O2 Flow Rate FiO2 07/15/17 03:27 99.0 88 16 127/69 (88) 92 07/15/17 00:25 99.0 78 16 111/63 (79) 95 07/14/17 20:45 89 07/14/17 20:45 98.7 89 13 113/48 (69) 95 07/14/17 20:45 Nasal Cannula 2.50 07/14/17 17:37 97 Nasal Cannula 2.00 07/14/17 16:15 99.4 93 16 112/74 (87) 97 07/14/17 12:29 98.3 118 16 104/62 (76) 91 07/14/17 11:45 96 Nasal Cannula 2.00 07/14/17 11:00 93 17 108/58 (75) 96 Nasal Cannula 2 07/15/17 07/15/17 07/15/17 07:00 15:00 23:00 Output Total 300 ml Balance -300 ml Result Diagram: 07/14/1750907/14/17 0510 Administered Medications Medications (Trade) Dose Ordered Sig/Sunil Route PRN Reason Start Time Stop Time Status Last Admin Dose Admin Sodium Chloride (NS Flush) 2 ml UNSCH PRN IV FLUSH FLUSH AFTER USING IV ACCESS 06/24/17 20:30 07/12/17 10:40 Sodium Chloride (NS Flush) 2 ml BID IV FLUSH 06/24/17 21:00 07/14/17 21:08 Ondansetron HCl (Zofran Inj) 4 mg Q6H PRN IV PUSH NAUSEA OR VOMITING 06/24/17 20:30 07/03/17 17:30 Chlorhexidine Gluconate (Chlorhexidine 2% Cloth) 3 pack Taper DAILY@04 TOP 06/25/17 04:00 06/21/18 03:59 07/01/17 04:00 Senna/Docusate Sodium (Olesya-Colace) 1 tab BID PO 06/24/17 21:00 07/15/17 08:22 Bisacodyl (Dulcolax Supp) 10 mg DAILY PRN RECTAL SEVERE CONSITIPATION 06/24/17 20:30 06/28/17 08:31 Amiodarone HCl (Cordarone) 200 mg DAILY PO 06/25/17 09:00 07/15/17 08:22 Methadone HCl (Methadone Liq) 2.5 mg BID PO 06/24/17 21:00 07/15/17 08:18 Dextrose (D50w (Vial) Inj) 50 ml UNSCH PRN IV PUSH HYPOGLYCEMIA-SEE COMMENTS 06/24/17 20:30 06/24/17 21:15 Sodium Chloride (NS Flush) DAILY IV FLUSH 06/25/17 09:00 07/14/17 09:00 Sodium Chloride (NS Flush) UNSCH PRN IV FLUSH SEE PROTOCOL 06/24/17 21:30 07/15/17 08:34 Morphine Sulfate (Morphine Inj) 2 mg Q3H PRN IV PUSH pain 1-5 06/24/17 23:15 07/12/17 18:23 Morphine Sulfate (Morphine Inj) 4 mg Q3H PRN IV PUSH pain 6-10 06/24/17 23:15 07/06/17 02:26 Bisacodyl (Dulcolax Ec) 10 mg HS PO 06/26/17 21:00 07/05/17 21:13 Sennosides (Senna Liq) 8.8 mg DAILY PO 06/28/17 09:00 07/09/17 09:44 Albuterol/ Ipratropium (Duoneb Neb) 1 ampule Q2HR NEB PRN NEB SHORTNESS OF BREATH 06/29/17 08:30 07/13/17 20:43 Insulin Human Regular (NovoLIN R SUPPLEMENTAL SCALE) 1 ACHS SQ 07/02/17 12:00 07/15/17 08:12 Albuterol/ Ipratropium (Duoneb Neb) 1 ampule Q4HR NEB PRN INH SHORTNESS OF BREATH 07/05/17 17:00 07/06/17 20:26 Sucralfate (Carafate Liq) 1 gm ACHS PO 07/09/17 08:00 07/15/17 08:18 Multi-Ingredient Mouthwash/Gargle (Magic Mouthwash Adult Liq) 5 ml QID SWISH-SWAL 07/09/17 09:00 07/15/17 08:21 Nystatin (Mycostatin Liq) 5 ml QID SWISH-SWAL 07/09/17 13:00 07/15/17 08:18 Nystatin (Mycostatin Oint) 1 applic Q8HR TOPICAL 07/09/17 15:15 07/15/17 05:09 Miconazole Nitrate (Micatin 2% Cream) 1 applic Q12HR TOPICAL 07/09/17 21:00 07/14/17 16:07 Imatinib Mesylate (Gleevec) 400 mg HS PO 07/11/17 21:00 07/14/17 21:00 Lactobacillus Acidophilus (Lactinex) 1 tab TID PO 07/11/17 18:00 07/15/17 08:22 Fluconazole (Diflucan) 100 mg DAILY PO 07/11/17 18:45 07/16/17 18:44 07/15/17 08:22 Levofloxacin/ Dextrose 150 ml @ 100 mls/hr Q48H IV 07/13/17 23:00 07/13/17 23:07 Lidocaine HCl (Xylocaine 2% Viscous) 15 ml Q4H PRN SWISH-SPIT prior to taking meds 07/12/17 10:15 07/15/17 08:26 Pantoprazole Sodium (Protonix) 40 mg Q12HR PO 07/12/17 21:00 07/15/17 08:22 Prednisone (Deltasone) 10 mg BID PO 07/13/17 21:00 07/15/17 08:22 Objective Remarks GENERAL: chronically ill male, lying in bed resting. SKIN: Warm and dry. HEAD: Normocephalic. EYES: No injection or drainage. NECK: Supple, trachea midline. CARDIOVASCULAR: +S1/S2 RESPIRATORY: occasional rhonchi, anterior yates. GASTROINTESTINAL: Abdomen soft, mildly distended. EXTREMITIES: No cyanosis Assessment/Plan Problem List: (1) CML (chronic myelocytic leukemia) ICD Codes: C92.10 - Chronic myeloid leukemia, BCR/ABL-positive, not having achieved remission Status: Chronic Plan: 07/15/17: monitor CBC, continue Gleevac -- Was originally diagnosed in 1998 -- Gleevec resumed on 07/11/17 as platelets greater than 100k. (2) Pneumonia ICD Codes: J18.9 - Pneumonia, unspecified organism Status: Acute Plan: --on Levaquin (3) Candidiasis of mouth and esophagus ICD Codes: B37.81 - Candidal esophagitis; B37.0 - Candidal stomatitis Status: Acute Plan: --on oral Nystatin + diflucan (4) GI bleed ICD Codes: K92.2 - Gastrointestinal hemorrhage, unspecified Status: Acute Plan: --GI signed off on 07/15 --had incomplete colonoscopy on 07/14 which showed hemorrhoids. --Bleeding scan,07/10--> no active GI bleeding. Assessment 82 y/o male with history of CML. hematology consulted for pancytopenia Attending Statement The exam, history, and the medical decision-making described in the above note were completed with the assistance of the mid-level provider. I reviewed and agree with the findings presented. I attest that I had a [id number] encounter with the patient on the same day, and personally performed and documented my assessment and findings in the medical record. no new c/o blood counts have improved. continue gleevec. Problem Qualifiers (1) Pneumonia: Mira Zepeda Jul 15, 2017 10:51 Fabrice Patel MD Jul 15, 2017 17:56
--- NOTE | 2017-07-15 11:59 | HHI.PR ---
Subjective Remarks Patient states he feels fine. Swallowing is improved. He refused repeat colonoscopy. Labs are pending today. Objective Vitals Vital Signs Date Time Temp Pulse Resp B/P (MAP) Pulse Ox O2 Delivery O2 Flow Rate FiO2 07/15/17 08:06 98.5 78 20 125/53 (77) 95 07/15/17 08:04 Nasal Cannula 2.50 07/15/17 03:27 99.0 88 16 127/69 (88) 92 07/15/17 00:25 99.0 78 16 111/63 (79) 95 07/14/17 20:45 89 07/14/17 20:45 98.7 89 13 113/48 (69) 95 07/14/17 20:45 Nasal Cannula 2.50 07/14/17 17:37 97 Nasal Cannula 2.00 07/14/17 16:15 99.4 93 16 112/74 (87) 97 07/14/17 12:29 98.3 118 16 104/62 (76) 91 I/O 07/14/17 07/14/17 07/14/17 07/15/17 07/15/17 07/15/17 07:00 15:00 23:00 07:00 15:00 23:00 Intake Total 510 ml 650 ml 120 ml Output Total 650 ml 775 ml 300 ml Balance -140 ml 650 ml -655 ml -300 ml Intake Oral 510 ml 120 ml Other 650 ml Output Urine Total 650 ml 775 ml 300 ml # Bowel Movements 2 Result Diagram: 07/14/17 0510 07/14/17 0510 Objective Remarks GENERAL: Well-nourished, well-developed pleasant elderly obese male patient. SKIN: Warm and dry. Multiple tattoos on extremities. HEAD: Normocephalic. EYES: No scleral icterus. No injection or drainage. NECK: Supple, trachea midline. No JVD or lymphadenopathy. CARDIOVASCULAR: Regular rate and rhythm without murmurs, gallops, or rubs. RESPIRATORY: Breath sounds equal bilaterally. No accessory muscle use. CTAB. GASTROINTESTINAL: Abdomen soft, non-tender, nondistended. EXTREMITIES: No peripheral edema. NEUROLOGICAL: Awake, alert, and oriented x 3. Non-focal. Procedures Echo 06/26/2017 Mildly dilated left ventricle. The left ventricular systolic function is mildly reduced with an estimated ejection fraction in the range of 45- 50%. Wall thickness is normal. A pacemaker wire is noted. There is a pacemaker wire present in the right atrial cavity. [id number] mitral valve regurgitation. There is trace tricuspid valve regurgitation. A/P Problem List: (1) Diverticulosis ICD Code: K57.90 - Diverticulosis of intestine, part unspecified, without perforation or abscess without bleeding (2) ALEJANDRA (obstructive sleep apnea) ICD Code: G47.33 - Obstructive sleep apnea (adult) (pediatric) Status: Chronic (3) Acute respiratory failure ICD Code: J96.00 - Acute respiratory failure, unspecified whether with hypoxia or hypercapnia (4) Acute kidney injury ICD Code: N17.9 - Acute kidney failure, unspecified Status: Acute (5) Thrombocytopenia ICD Code: D69.6 - Thrombocytopenia, unspecified Status: Acute (6) Macrocytic anemia ICD Code: D53.9 - Nutritional anemia, unspecified Status: Chronic (7) Diabetes mellitus ICD Code: E11.9 - Type 2 diabetes mellitus without complications (8) Chronic systolic heart failure ICD Code: I50.22 - Chronic systolic (congestive) heart failure Status: Chronic (9) Sepsis ICD Code: A41.9 - Sepsis, unspecified organism Status: Acute (10) GI bleed ICD Code: K92.2 - Gastrointestinal hemorrhage, unspecified Status: Acute (11) Bacteremia due to Klebsiella pneumoniae ICD Code: R78.81 - Bacteremia Status: Acute (12) Ileus ICD Code: K56.7 - Ileus, unspecified Status: Resolved (13) Candidiasis of mouth and esophagus ICD Code: B37.81 - Candidal esophagitis; B37.0 - Candidal stomatitis Status: Acute (14) Pneumonia ICD Code: J18.9 - Pneumonia, unspecified organism Status: Acute (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, BCR/ABL-positive, not having achieved remission Status: Chronic (16) Pancytopenia ICD Code: D61.818 - Other pancytopenia Status: Chronic (17) COPD (chronic obstructive pulmonary disease) ICD Code: J44.9 - Chronic obstructive pulmonary disease, unspecified Status: Chronic (18) Acute renal failure ICD Code: N17.9 - Acute kidney failure, unspecified Status: Acute (19) Iron deficiency anemia ICD Code: D50.9 - Iron deficiency anemia, unspecified Status: Acute (20) AICD (automatic cardioverter/defibrillator) present ICD Code: Z95.810 - Presence of automatic (implantable) cardiac defibrillator Status: Acute (21) Anemia associated with acute blood loss ICD Code: D62 - Acute posthemorrhagic anemia Status: Acute (22) Cardiomyopathy ICD Code: I42.9 - Cardiomyopathy, unspecified Status: Chronic (23) Left bundle branch block ICD Code: I44.7 - Left bundle-branch block, unspecified Status: Chronic (24) Paroxysmal ventricular tachycardia ICD Code: I47.2 - Ventricular tachycardia Status: Resolved Assessment and Plan 82-year-old male who was admitted on 06/24/2017 due to abdominal pain. He complained of right upper and lower quadrant abdominal pain radiating to his back. Patient was found to be hypotensive and received 4 L of normal saline. Lactate was essentially normal. CT abdomen pelvis showed diverticulosis, edematous gallbladder with some stones. Patient received vancomycin and Zosyn in the emergency department. He was managed in the ICU and required Levophed for hypotension. He had acute kidney injury as well which improved gradually. 1. Sepsis, hypotension - resolved. blood cultures 07/06 were positive for Klebsiella pneumoniae, also has a left lower lobe lung consolidation. blood culture 07/08 with staph epidermidis likely contaminant. On antibiotics levaquin per ID/levaquin. 2. Abdominal pain, Ileus - resolve s/p NG tube. - Cont. Lactulose, Senna, Pericolace, Dulcolax supp 3. Hospital-acquired pneumonia - Previous chest x-rays and CT abdomen pelvis did not identify any lung infiltrates. However, abd CT 07/05 did show LLL consolidation. Infectious disease following, patient was on Zosyn now transitioned to Levaquin. -Repeat cxr 07/13 showed left lower lobe infiltrate. EKG 07/13 with QTc - 456. 4. COPD - followed by Dr. Escamilla as outpatient. on prednisone taper. Duo nebs as needed. 5. Chronic pain - cont methadone 2.5 mg twice a day and morphine 2 mg IV every 3 hours when necessary. 6. Oral thrush, and odynophagia - sucralfate was ordered by oncology team. - on nystatin and magic mouth wash. lidocaine swish and spit prior to taking by mouth meds. - GI aware and following. S/p EGD 07/13 showing mild gastritis in the antrum and distal esophagitis - biopsies were taken to r/o CVA/HSV 7. Hematochezia - bleeding scan 07/10 negative. -H&H declined to 7.7 and he was transfused 2 units packed red blood cells on 07/12 -hb 8-9 now -EGD 07/13 - mild esophagitis, gastritis -cont protonix, monitor H&H -Status post colonoscopy on 07/14 showing incomplete prep internal and neck sternal hemorrhoids, patient refused repeat colonoscopy -GI has signed off 8. Pancytopenia, CML - Heme/onc following. - Gleevec resumed 07/11 - No anti-coagulation due to pancytopenia. HIT negative. -Follow CBC 9. 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 Nephrology is following. -s/p diuresis. Holding lasix due to hypernatremia -BMP pending today 10. Hypernatremia -improving after holding lasix. ff repeat BMP 11. Chronic systolic congestive heart failure - Echo from this admission shows ejection fraction 45-50% -monitor for any fluid overload, monitor I/O. -start PO lasix when sodium improved. 12. Buttock and leg wounds: wound care following and has made recs, appreciate assistance 13. History of ventricular tachycardia status post AICD. Continue amiodarone. 14. DVT px - SCDs. No anti-coagulation due to thrombocytopenia, hematology recommendations. PT/OT following DO NOT RESUSCITATE status Discharge Planning Will require SNF when stable for DC. Problem Qualifiers (1) Diverticulosis: (2) Acute respiratory failure: Qualified Codes: J96.02 - Acute respiratory failure with hypercapnia (3) Diabetes mellitus: Qualified Codes: E11.8 - Type 2 diabetes mellitus with unspecified complications (4) Pneumonia: Yisel Linares MD Jul 15, 2017 11:59
[2017-07-15] MEDS: MICONAZOLE NITRATE 2% CREAM 15 GM TOPICAL SCH ×2 (14:16→20:38)
[2017-07-15 14:47] LABS: HEMATOCRIT 24.2 % (39.0-51.0); MEAN CELL VOLUME 97.5 FL (80.0-100.0); MEAN CORPUSCULAR HEMOGLOBIN 32.3 PG (27.0-34.0); MEAN CORPUSCULAR HGB CONC 33.2 % (32.0-36.0); MEAN PLATELET VOLUME 9.9 FL (7.0-11.0); PLATELET COUNT 119 TH/MM3 (150-450); RED BLOOD COUNT 2.48 MIL/MM3 (4.50-5.90); RED CELL DISTRIBUTION WIDTH 19.6 % (11.6-17.2); WHITE BLOOD COUNT 6.9 TH/MM3 (4.0-11.0)
[2017-07-15 15:15] LABS: BICARBONATE 34.6 MEQ/L (21.0-32.0); CALCIUM 7.5 MG/DL (8.5-10.1); CREATININE 2.02 MG/DL (0.60-1.30)
[2017-07-15] MEDS: BISACODYL EC 5 MG TABEC PO SCH (19:22)
--- NOTE | 2017-07-15 19:33 | HHI.NPPN ---
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 I was called to see the patient because of elevated BUN and creatinine. Additional Remarks Patient is alert, no SOB, not eating well. Objective Data Data 07/15/17 07/16/17 19:00 07:00 Intake Total 840 ml Output Total 850 ml Balance -10 ml Intake Oral 840 ml Output Urine Total 850 ml # Bowel Movements 4 Vital Signs Date Time Temp Pulse Resp B/P (MAP) Pulse Ox O2 Delivery O2 Flow Rate FiO2 07/15/17 17:08 97.3 83 16 104/63 (77) 100 07/15/17 11:30 98.7 85 16 113/69 (84) 98 07/15/17 08:06 98.5 78 20 125/53 (77) 95 07/15/17 08:04 Nasal Cannula 2.50 07/15/17 03:27 99.0 88 16 127/69 (88) 92 07/15/17 00:25 99.0 78 16 111/63 (79) 95 07/14/17 20:45 89 07/14/17 20:45 98.7 89 13 113/48 (69) 95 07/14/17 20:45 Nasal Cannula 2.50 -: 07/15/17 1438 07/15/17 1438 Physical Exam General Appearance: No Acute Distress, Comfortable Eyes Eye Exam: Pupils Equal Throat Throat Exam: Oral Mucosa [place] & Moist Neck Neck Exam: Neck Supple Pulmonary Resp Exam: Breath Sounds Equal, No Distress, Rhonchi, Sputum, Decreased Bases Cardiology CV Exam: Regular, Normal Sinus Rhythm Gastrointestinal/Abdomen GI Exam: Soft, Non-Tender, Bowel Sounds Present Extremeties Extremities Exam: Moderate Edema, Pitting Edema, Dependent Edema Neurologic Neuro Exam: Alert, Awake, Oriented Psychiatric Psych Exam: Appropriate Responses Assessment/Plan Assessment Summary: LEESA/Acute Renal Failure, Hypertension, CKD Stage IV Problem List: (1) COPD (chronic obstructive pulmonary disease) ICD Codes: J44.9 - Chronic obstructive pulmonary disease, unspecified Status: Chronic (2) Bronchitis ICD Codes: J40 - Bronchitis, not specified as acute or chronic Status: Acute (3) HTN (hypertension) ICD Codes: I10 - Essential (primary) hypertension Status: Chronic (4) Diabetes mellitus ICD Codes: E11.9 - Type 2 diabetes mellitus without complications (5) Acute respiratory failure ICD Codes: J96.00 - Acute respiratory failure, unspecified whether with hypoxia or hypercapnia (6) Severe sepsis ICD Codes: A41.9 - Sepsis, unspecified organism; R65.20 - Severe sepsis without septic shock Status: Acute (7) Acute kidney injury ICD Codes: N17.9 - Acute kidney failure, unspecified Status: Acute Plan Patient has been non oliguric. Has Chronic kidney disease, possibly stage 3- 4. Now develop LEESA. K is normal, on Zosyn. ID is following. Creatinine is stable. Continue diuretics, edema is improving. Lasix stopped. Creatinine still increasing, now 2.0. Na. is 150, encourage oral intake, if not better by tomorrow, consider gentle hydration. Problem Qualifiers (1) Diabetes mellitus: Qualified Codes: E11.8 - Type 2 diabetes mellitus with unspecified complications (2) Acute respiratory failure: Qualified Codes: J96.02 - Acute respiratory failure with hypercapnia Bimsark Woods MD Jul 15, 2017 19:33
[2017-07-15] MEDS: IMATINIB MESYLATE 100 MG TAB PO SCH (20:50)
[2017-07-15] MEDS: LEVOFLOXACIN 750 MG PREMIX INJ 150 ML IV SCH (23:38)
[2017-07-16] VITALS (8 sets, daily range): BP systolic 109–149; BP diastolic 55–74; PULSE 72–100; RESP 16–20; TEMP 97–98.6; O2SAT 95–98
[2017-07-16] MEDS: CHLORHEXIDINE GLUCONATE 2 % 1 PACK (2 CLOTHS) TOP SCH (00:10)
[2017-07-16] MEDS: NYSTATIN 100,000 U/GM OINT 15 GM TUBE TOPICAL SCH ×3 (05:19→20:19)
--- NOTE | 2017-07-16 06:14 | HHI.PR ---
Addendum to Inpatient Note Addendum Reason: Additional Documentation Additional Information Chart reviewed. No fevers CXR improved WBC normal Staph epiderm: contaminant Continue Levaquin stop date in chart Continue Diflucan stop date in chart. Will sign off please call back if any change in clinical condition or questions. Rosio Mtz MD Jul 16, 2017 06:14
[2017-07-16] MEDS: INSULIN NovoLIN REGULAR SUPPLEMENTAL SCALE SQ SCH ×4 (08:00→20:29)
[2017-07-16] MEDS: SODIUM CHLORIDE 0.9% FLUSH 10 ML FLUSH IV FLUSH SCH ×3 (09:00→20:15)
[2017-07-16] MEDS: NYSTAT/DIPHENHY/LIDO MOUTHWASH (Adult) 120ML SWISH-SWAL SCH ×4 (09:00→20:17)
[2017-07-16] MEDS: PANTOPRAZOLE SOD 40 MG DELAYED RELEASE TAB PO SCH ×2 (09:16→20:16)
[2017-07-16] MEDS: AMIODARONE 200 MG TAB PO SCH (09:17)
[2017-07-16] MEDS: FLUCONAZOLE 100 MG TAB PO SCH (09:17)
[2017-07-16] MEDS: LACTOBACILLUS ACIDOPHILUS TAB PO SCH ×3 (09:17→16:53)
[2017-07-16] MEDS: DOCUSATE SODIUM 50 MG/SENNA 8.6 MG TAB PO SCH ×2 (09:17→20:15)
[2017-07-16] MEDS: SUCRALFATE 1 GM/10 ML CUP PO SCH ×4 (09:17→20:16)
[2017-07-16] MEDS: predniSONE 10 MG TAB PO SCH (09:17)
[2017-07-16] MEDS: NYSTATIN SUSP 500,000 U/5 ML CUP SWISH-SWAL SCH ×4 (09:18→20:16)
[2017-07-16] MEDS: SENNOSIDES SYRUP 8.8 MG/5 ML CUP PO SCH (09:18)
[2017-07-16] MEDS: METHADONE HCL 10 MG/10 ML ORAL SOLUTION PO SCH ×2 (09:19→20:29)
[2017-07-16] MEDS: MICONAZOLE NITRATE 2% CREAM 15 GM TOPICAL SCH ×2 (09:21→20:19)
[2017-07-16 10:14] LABS: AUTOMATED NEUTROPHIL # 5.2 TH/MM3 (1.8-7.7); BASOPHIL % 0.3 % (0.0-2.0); EOSINOPHIL % 0.5 % (0.0-4.0); HEMATOCRIT 24.2 % (39.0-51.0); HEMOGLOBIN 8.1 GM/DL (13.0-17.0); LYMPH % 19.2 % (9.0-44.0); LYMPHOCYTE # 1.3 TH/MM3 (1.0-4.8); MEAN CELL VOLUME 95.1 FL (80.0-100.0); MEAN CORPUSCULAR HEMOGLOBIN 31.9 PG (27.0-34.0); MEAN CORPUSCULAR HGB CONC 33.5 % (32.0-36.0); MEAN PLATELET VOLUME 10.1 FL (7.0-11.0); MONO % 2.9 % (0.0-8.0); MONOCYTE # 0.2 TH/MM3 (0-0.9); NEUT % 77.1 % (16.0-70.0); PLATELET COUNT 95 TH/MM3 (150-450); RED BLOOD COUNT 2.55 MIL/MM3 (4.50-5.90); RED CELL DISTRIBUTION WIDTH 18.4 % (11.6-17.2); WHITE BLOOD COUNT 6.7 TH/MM3 (4.0-11.0)
[2017-07-16 10:45] LABS: BANDS 17 % (0-6); CORRECTED NUCLEATED RBC 1 /100 WBC (0-0); LYMPHOCYTES 19 % (9-44); METAMYELOCYTES 1 % (0-1); MONOCYTES 2 % (0-8); MYELOCYTES 1 % (0-0); NEUTROPHIL # MANUAL DIFF 5.3 TH/MM3 (1.8-7.7); NUCLEATED RED BLOOD CELL 1 (0-0); POLYS (SEG NEUTROPHILS) 60 % (16-70)
[2017-07-16 10:46] LABS: TOXIC GRANULATION 2+ (NORMAL)
--- NOTE | 2017-07-16 12:41 | HHI.PR ---
Subjective Remarks Patient complains of not getting enough sleep. Denies dyspnea or pain. Labs are pending today. Objective Vitals Vital Signs Date Time Temp Pulse Resp B/P (MAP) Pulse Ox O2 Delivery O2 Flow Rate FiO2 07/16/17 10:48 Nasal Cannula 2.00 07/16/17 08:00 97.6 88 20 109/55 (73) 96 07/16/17 08:00 75 07/16/17 08:00 Nasal Cannula 2.50 07/16/17 03:03 97.0 72 16 109/60 (76) 98 07/15/17 23:38 98.5 77 16 106/63 (77) 95 07/15/17 22:01 2.00 07/15/17 21:00 79 07/15/17 21:00 Nasal Cannula 2.50 07/15/17 20:30 98.4 78 16 107/63 (78) 96 07/15/17 17:08 97.3 83 16 104/63 (77) 100 I/O 07/15/17 07/15/17 07/15/17 07/16/17 07/16/17 07/16/17 07:00 15:00 23:00 07:00 15:00 23:00 Intake Total 840 ml 150 ml Output Total 300 ml 850 ml 250 ml Balance -300 ml -10 ml -100 ml Intake Oral 840 ml IV Total 150 ml Output Urine Total 300 ml 850 ml 250 ml # Bowel Movements 5 Result Diagram: 07/16/17 0915 07/15/17 1438 Objective Remarks GENERAL: Well-nourished, well-developed pleasant elderly obese male patient. SKIN: Warm and dry. Multiple tattoos on extremities. HEAD: Normocephalic. EYES: No scleral icterus. No injection or drainage. NECK: Supple, trachea midline. No JVD or lymphadenopathy. CARDIOVASCULAR: Regular rate and rhythm without murmurs, gallops, or rubs. RESPIRATORY: Breath sounds equal bilaterally. No accessory muscle use. CTAB. GASTROINTESTINAL: Abdomen soft, non-tender, nondistended. EXTREMITIES: No peripheral edema. NEUROLOGICAL: Awake, alert, and oriented x 3. Non-focal. Procedures Echo 06/26/2017 Mildly dilated left ventricle. The left ventricular systolic function is mildly reduced with an estimated ejection fraction in the range of 45- 50%. Wall thickness is normal. A pacemaker wire is noted. There is a pacemaker wire present in the right atrial cavity. [id number] mitral valve regurgitation. There is trace tricuspid valve regurgitation. A/P Problem List: (1) Diverticulosis ICD Code: K57.90 - Diverticulosis of intestine, part unspecified, without perforation or abscess without bleeding (2) ALEJANDRA (obstructive sleep apnea) ICD Code: G47.33 - Obstructive sleep apnea (adult) (pediatric) Status: Chronic (3) Acute respiratory failure ICD Code: J96.00 - Acute respiratory failure, unspecified whether with hypoxia or hypercapnia (4) Acute kidney injury ICD Code: N17.9 - Acute kidney failure, unspecified Status: Acute (5) Thrombocytopenia ICD Code: D69.6 - Thrombocytopenia, unspecified Status: Acute (6) Macrocytic anemia ICD Code: D53.9 - Nutritional anemia, unspecified Status: Chronic (7) Diabetes mellitus ICD Code: E11.9 - Type 2 diabetes mellitus without complications (8) Chronic systolic heart failure ICD Code: I50.22 - Chronic systolic (congestive) heart failure Status: Chronic (9) Sepsis ICD Code: A41.9 - Sepsis, unspecified organism Status: Acute (10) GI bleed ICD Code: K92.2 - Gastrointestinal hemorrhage, unspecified Status: Acute (11) Bacteremia due to Klebsiella pneumoniae ICD Code: R78.81 - Bacteremia Status: Acute (12) Ileus ICD Code: K56.7 - Ileus, unspecified Status: Resolved (13) Candidiasis of mouth and esophagus ICD Code: B37.81 - Candidal esophagitis; B37.0 - Candidal stomatitis Status: Acute (14) Pneumonia ICD Code: J18.9 - Pneumonia, unspecified organism Status: Acute (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, BCR/ABL-positive, not having achieved remission Status: Chronic (16) Pancytopenia ICD Code: D61.818 - Other pancytopenia Status: Chronic (17) COPD (chronic obstructive pulmonary disease) ICD Code: J44.9 - Chronic obstructive pulmonary disease, unspecified Status: Chronic (18) Acute renal failure ICD Code: N17.9 - Acute kidney failure, unspecified Status: Acute (19) Iron deficiency anemia ICD Code: D50.9 - Iron deficiency anemia, unspecified Status: Acute (20) AICD (automatic cardioverter/defibrillator) present ICD Code: Z95.810 - Presence of automatic (implantable) cardiac defibrillator Status: Acute (21) Anemia associated with acute blood loss ICD Code: D62 - Acute posthemorrhagic anemia Status: Acute (22) Cardiomyopathy ICD Code: I42.9 - Cardiomyopathy, unspecified Status: Chronic (23) Left bundle branch block ICD Code: I44.7 - Left bundle-branch block, unspecified Status: Chronic (24) Paroxysmal ventricular tachycardia ICD Code: I47.2 - Ventricular tachycardia Status: Resolved Assessment and Plan 82-year-old male who was admitted on 06/24/2017 due to abdominal pain. He complained of right upper and lower quadrant abdominal pain radiating to his back. Patient was found to be hypotensive and received 4 L of normal saline. Lactate was essentially normal. CT abdomen pelvis showed diverticulosis, edematous gallbladder with some stones. Patient received vancomycin and Zosyn in the emergency department. He was managed in the ICU and required Levophed for hypotension. He had acute kidney injury as well which improved gradually. 1. Sepsis, hypotension - resolved. blood cultures 07/06 were positive for Klebsiella pneumoniae, also has a left lower lobe lung consolidation. blood culture 07/08 with staph epidermidis likely contaminant. On antibiotics levaquin per ID/levaquin. 2. Abdominal pain, Ileus - resolve s/p NG tube. - Cont. Lactulose, Senna, Pericolace, Dulcolax supp 3. Hospital-acquired pneumonia - Previous chest x-rays and CT abdomen pelvis did not identify any lung infiltrates. However, abd CT 07/05 did show LLL consolidation. Infectious disease following, patient was on Zosyn now transitioned to Levaquin, last dose will be tomorrow. -Repeat cxr 07/13 showed left lower lobe infiltrate. EKG 07/13 with QTc - 456. 4. COPD - followed by Dr. Escamilla as outpatient. on prednisone taper. Duo nebs as needed. 5. Chronic pain - cont methadone 2.5 mg twice a day and morphine 2 mg IV every 3 hours when necessary. 6. Oral thrush, and odynophagia - sucralfate was ordered by oncology team. - on nystatin and magic mouth wash. Status post course of Diflucan per ID. lidocaine swish and spit prior to taking by mouth meds. - GI input appreciated. S/p EGD 07/13 showing mild gastritis in the antrum and distal esophagitis - biopsies were taken to r/o CVA/HSV - pathology pending. 7. Hematochezia - bleeding scan 07/10 negative. -H&H declined to 7.7 and he was transfused 2 units packed red blood cells on 07/12 -hb 8-9 now -EGD 07/13 - mild esophagitis, gastritis -cont protonix, monitor H&H -Status post colonoscopy on 07/14 showing incomplete prep internal and neck sternal hemorrhoids, patient refused repeat colonoscopy -GI has signed off 8. Pancytopenia, CML - Heme/onc following. - Gleevec resumed 07/11 - No anti-coagulation due to pancytopenia. HIT negative. -Follow CBC 9. 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 Nephrology is following. -s/p diuresis. Holding lasix due to hypernatremia - will give gentle IV fluids overnight and repeat BMP in the morning. -BMP pending today 10. Hypernatremia -improving after holding lasix. ff repeat BMP. I will give gentle IV fluids overnight. 11. Chronic systolic congestive heart failure - Echo from this admission shows ejection fraction 45-50% -monitor for any fluid overload, monitor I/O. -start PO lasix when sodium improved. 12. Buttock and leg wounds: wound care following and has made recs, appreciate assistance 13. History of ventricular tachycardia status post AICD. Continue amiodarone. 14. DVT px - SCDs. No anti-coagulation due to thrombocytopenia, hematology recommendations. PT/OT following DO NOT RESUSCITATE status Discharge Planning Will require SNF when stable for DC anticipate in 1-2 days. Problem Qualifiers (1) Diverticulosis: (2) Acute respiratory failure: Qualified Codes: J96.02 - Acute respiratory failure with hypercapnia (3) Diabetes mellitus: Qualified Codes: E11.8 - Type 2 diabetes mellitus with unspecified complications (4) Pneumonia: Yisel Linares MD Jul 16, 2017 12:41
[2017-07-16] MEDS: SODIUM CHLOR 0.9% 1000 ML INJ 1,000 ML IV SCH (13:29)
--- NOTE | 2017-07-16 14:48 | PD.ONC.PN ---
Subjective Subjective Remarks Afebrile Patient having lunch Reports his swallowing is overall improved Still having diarrhea Objective Data Date Time Temp Pulse Resp B/P (MAP) Pulse Ox O2 Delivery O2 Flow Rate FiO2 07/16/17 12:00 97.0 80 20 118/60 (79) 95 07/16/17 10:48 Nasal Cannula 2.00 07/16/17 10:19 18 07/16/17 08:00 97.6 88 20 109/55 (73) 96 07/16/17 08:00 75 07/16/17 08:00 Nasal Cannula 2.50 07/16/17 03:03 97.0 72 16 109/60 (76) 98 07/15/17 23:38 98.5 77 16 106/63 (77) 95 07/15/17 22:01 2.00 07/15/17 21:00 79 07/15/17 21:00 Nasal Cannula 2.50 07/15/17 20:30 98.4 78 16 107/63 (78) 96 07/15/17 17:08 97.3 83 16 104/63 (77) 100 07/16/17 07/16/17 07/16/17 07:00 15:00 23:00 Intake Total 150 ml Output Total 250 ml Balance -100 ml Result Diagram: 07/16/17 0915 07/15/17 1438 Laboratory Results Laboratory Tests Test 07/16/17 09:15 07/16/17 13:52 White Blood Count 6.7 TH/MM3 Red Blood Count 2.55 MIL/MM3 Hemoglobin 8.1 GM/DL Hematocrit 24.2 % Mean Corpuscular Volume 95.1 FL Mean Corpuscular Hemoglobin 31.9 PG Mean Corpuscular Hemoglobin Concent 33.5 % Red Cell Distribution Width 18.4 % Platelet Count 95 TH/MM3 Mean Platelet Volume 10.1 FL Neutrophils (%) (Auto) 77.1 % Lymphocytes (%) (Auto) 19.2 % Monocytes (%) (Auto) 2.9 % Eosinophils (%) (Auto) 0.5 % Basophils (%) (Auto) 0.3 % Neutrophils # (Auto) 5.2 TH/MM3 Lymphocytes # (Auto) 1.3 TH/MM3 Monocytes # (Auto) 0.2 TH/MM3 Eosinophils # (Auto) 0.0 TH/MM3 Basophils # (Auto) 0.0 TH/MM3 CBC Comment AUTO DIFF Differential Total Cells Counted 100 Neutrophils % (Manual) 60 % Band Neutrophils % 17 % Lymphocytes % 19 % Monocytes % 2 % Neutrophils # (Manual) 5.3 TH/MM3 Metamyelocytes 1 % Myelocytes 1 % Nucleated Red Blood Cells 1 /100 WBC Differential Comment FINAL DIFF MANUAL Toxic Granulation 2+ Platelet Estimate LOW Platelet Morphology Comment ENLARGED Hematology Comments Administered Medications Medications (Trade) Dose Ordered Sig/Sunil Route PRN Reason Start Time Stop Time Status Last Admin Dose Admin Sodium Chloride (NS Flush) 2 ml UNSCH PRN IV FLUSH FLUSH AFTER USING IV ACCESS 06/24/17 20:30 07/12/17 10:40 Sodium Chloride (NS Flush) 2 ml BID IV FLUSH 06/24/17 21:00 07/16/17 09:20 Ondansetron HCl (Zofran Inj) 4 mg Q6H PRN IV PUSH NAUSEA OR VOMITING 06/24/17 20:30 07/03/17 17:30 Chlorhexidine Gluconate (Chlorhexidine 2% Cloth) 3 pack Taper DAILY@04 TOP 06/25/17 04:00 06/21/18 03:59 07/01/17 04:00 Senna/Docusate Sodium (Olesya-Colace) 1 tab BID PO 06/24/17 21:00 07/16/17 09:17 Bisacodyl (Dulcolax Supp) 10 mg DAILY PRN RECTAL SEVERE CONSITIPATION 06/24/17 20:30 06/28/17 08:31 Amiodarone HCl (Cordarone) 200 mg DAILY PO 06/25/17 09:00 07/16/17 09:17 Methadone HCl (Methadone Liq) 2.5 mg BID PO 06/24/17 21:00 07/16/17 09:19 Dextrose (D50w (Vial) Inj) 50 ml UNSCH PRN IV PUSH HYPOGLYCEMIA-SEE COMMENTS 06/24/17 20:30 06/24/17 21:15 Sodium Chloride (NS Flush) DAILY IV FLUSH 06/25/17 09:00 07/14/17 09:00 Sodium Chloride (NS Flush) UNSCH PRN IV FLUSH SEE PROTOCOL 06/24/17 21:30 07/15/17 20:38 Morphine Sulfate (Morphine Inj) 2 mg Q3H PRN IV PUSH pain 1-5 06/24/17 23:15 07/12/17 18:23 Morphine Sulfate (Morphine Inj) 4 mg Q3H PRN IV PUSH pain 6-10 06/24/17 23:15 07/06/17 02:26 Bisacodyl (Dulcolax Ec) 10 mg HS PO 06/26/17 21:00 07/05/17 21:13 Sennosides (Senna Liq) 8.8 mg DAILY PO 06/28/17 09:00 07/16/17 09:18 Albuterol/ Ipratropium (Duoneb Neb) 1 ampule Q2HR NEB PRN NEB SHORTNESS OF BREATH 06/29/17 08:30 07/13/17 20:43 Insulin Human Regular (NovoLIN R SUPPLEMENTAL SCALE) 1 ACHS SQ 07/02/17 12:00 07/15/17 17:41 Albuterol/ Ipratropium (Duoneb Neb) 1 ampule Q4HR NEB PRN INH SHORTNESS OF BREATH 07/05/17 17:00 07/06/17 20:26 Sucralfate (Carafate Liq) 1 gm ACHS PO 07/09/17 08:00 07/16/17 13:29 Multi-Ingredient Mouthwash/Gargle (Magic Mouthwash Adult Liq) 5 ml QID SWISH-SWAL 07/09/17 09:00 07/16/17 13:00 Nystatin (Mycostatin Liq) 5 ml QID SWISH-SWAL 07/09/17 13:00 07/16/17 13:28 Nystatin (Mycostatin Oint) 1 applic Q8HR TOPICAL 07/09/17 15:15 07/16/17 09:18 Miconazole Nitrate (Micatin 2% Cream) 1 applic Q12HR TOPICAL 07/09/17 21:00 07/16/17 09:21 Imatinib Mesylate (Gleevec) 400 mg HS PO 07/11/17 21:00 Future Hold 07/15/17 20:50 Lactobacillus Acidophilus (Lactinex) 1 tab TID PO 07/11/17 18:00 07/16/17 13:28 Fluconazole (Diflucan) 100 mg DAILY PO 07/11/17 18:45 07/16/17 18:44 07/16/17 09:17 Levofloxacin/ Dextrose 150 ml @ 100 mls/hr Q48H IV 07/13/17 23:00 07/18/17 22:59 07/15/17 23:38 Lidocaine HCl (Xylocaine 2% Viscous) 15 ml Q4H PRN SWISH-SPIT prior to taking meds 07/12/17 10:15 07/15/17 08:26 Pantoprazole Sodium (Protonix) 40 mg Q12HR PO 07/12/17 21:00 07/16/17 09:16 Sodium Chloride 1,000 ml @ 60 mls/hr [id number] IV 07/16/17 12:45 07/16/17 13:29 Objective Remarks GENERAL: Elderly male sitting up in bed eating lunch with at bedside SKIN: Warm and dry. No oozing from lines HEAD: Normocephalic. EYES: No injection or drainage. MOUTH: Thrush improved from previously seen NECK: Supple, trachea midline. CARDIOVASCULAR: +S1/S2 RESPIRATORY: Clear anteriorly. Breathing unlabored. GASTROINTESTINAL: Abdomen mildly distended, non-tender. EXTREMITIES: No cyanosis. No edema. NEUROLOGICAL: Awake and alert, normal speech. Forgetful. Moving all extremities. Assessment/Plan Problem List: (1) CML (chronic myelocytic leukemia) ICD Codes: C92.10 - Chronic myeloid leukemia, BCR/ABL-positive, not having achieved remission Status: Chronic Plan: 07/16/17: Hold Gleevec today for platelet count of 95,000. Check CBC in a.m. -- Was originally diagnosed in 1998 -- Gleevec resumed on 07/11/17 as platelets greater than 100k. (2) Pneumonia ICD Codes: J18.9 - Pneumonia, unspecified organism Status: Acute Plan: --on Levaquin (3) Candidiasis of mouth and esophagus ICD Codes: B37.81 - Candidal esophagitis; B37.0 - Candidal stomatitis Status: Acute Plan: --on oral Nystatin + diflucan (4) GI bleed ICD Codes: K92.2 - Gastrointestinal hemorrhage, unspecified Status: Acute Plan: --GI signed off on 07/15 --had incomplete colonoscopy on 07/14 which showed hemorrhoids. --Bleeding scan,07/10--> no active GI bleeding. Assessment 82 y/o male with history of CML. hematology consulted for pancytopenia Attending Statement The exam, history, and the medical decision-making described in the above note were completed with the assistance of the mid-level provider. I reviewed and agree with the findings presented. I attest that I had a [id number] encounter with the patient on the same day, and personally performed and documented my assessment and findings in the medical record. Has stool incontinence. Loose BM x 2 yesterday. c/o feeling very weak . can not get up by himself. PT people come in and leave without doing any therapy. [facility] to regain strenght d/w . Problem Qualifiers (1) Pneumonia: Khushi Reynolds Jul 16, 2017 14:48 Fabrice Patel MD Jul 16, 2017 17:23
[2017-07-16 14:57] LABS: BICARBONATE 31.2 MEQ/L (21.0-32.0); CALCIUM 7.7 MG/DL (8.5-10.1); CREATININE 1.64 MG/DL (0.60-1.30)
--- NOTE | 2017-07-16 18:43 | HHI.NPPN ---
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 I was called to see the patient because of elevated BUN and creatinine. Additional Remarks Patient is alert, feeling better, no SOB. Objective Data Data Vital Signs Date Time Temp Pulse Resp B/P (MAP) Pulse Ox O2 Delivery O2 Flow Rate FiO2 07/16/17 17:06 97.0 84 20 109/57 (74) 97 07/16/17 15:58 80 07/16/17 12:00 97.0 80 20 118/60 (79) 95 07/16/17 12:00 100 07/16/17 10:48 Nasal Cannula 2.00 07/16/17 10:19 18 07/16/17 08:00 97.6 88 20 109/55 (73) 96 07/16/17 08:00 75 07/16/17 08:00 Nasal Cannula 2.50 07/16/17 03:03 97.0 72 16 109/60 (76) 98 07/15/17 23:38 98.5 77 16 106/63 (77) 95 07/15/17 22:01 2.00 07/15/17 21:00 79 07/15/17 21:00 Nasal Cannula 2.50 07/15/17 20:30 98.4 78 16 107/63 (78) 96 -: 07/16/17 0915 07/16/17 1352 Physical Exam General Appearance: No Acute Distress, Comfortable Eyes Eye Exam: Pupils Equal Throat Throat Exam: Oral Mucosa Backus & Moist Neck Neck Exam: Neck Supple Pulmonary Resp Exam: Breath Sounds Equal, No Distress, Rhonchi, Sputum, Decreased Bases Cardiology CV Exam: Regular, Normal Sinus Rhythm Gastrointestinal/Abdomen GI Exam: Soft, Non-Tender, Bowel Sounds Present Extremeties Extremities Exam: Moderate Edema, Pitting Edema, Dependent Edema Neurologic Neuro Exam: Alert, Awake, Oriented Psychiatric Psych Exam: Appropriate Responses Assessment/Plan Assessment Summary: LEESA/Acute Renal Failure, Hypertension, CKD Stage IV Problem List: (1) COPD (chronic obstructive pulmonary disease) ICD Codes: J44.9 - Chronic obstructive pulmonary disease, unspecified Status: Chronic (2) Bronchitis ICD Codes: J40 - Bronchitis, not specified as acute or chronic Status: Acute (3) HTN (hypertension) ICD Codes: I10 - Essential (primary) hypertension Status: Chronic (4) Diabetes mellitus ICD Codes: E11.9 - Type 2 diabetes mellitus without complications (5) Acute respiratory failure ICD Codes: J96.00 - Acute respiratory failure, unspecified whether with hypoxia or hypercapnia (6) Severe sepsis ICD Codes: A41.9 - Sepsis, unspecified organism; R65.20 - Severe sepsis without septic shock Status: Acute (7) Acute kidney injury ICD Codes: N17.9 - Acute kidney failure, unspecified Status: Acute Plan Patient has been non oliguric. Has Chronic kidney disease, possibly stage 3- 4. Now develop LEESA. K is normal, on Zosyn. ID is following. Lasix stopped. Creatinine is improving, and Na. is better. Problem Qualifiers (1) Diabetes mellitus: Qualified Codes: E11.8 - Type 2 diabetes mellitus with unspecified complications (2) Acute respiratory failure: Qualified Codes: J96.02 - Acute respiratory failure with hypercapnia Bismark Woods MD Jul 16, 2017 18:43
[2017-07-16] MEDS: BISACODYL EC 5 MG TABEC PO SCH (20:15)
[2017-07-17] VITALS (8 sets, daily range): BP systolic 102–128; BP diastolic 52–72; PULSE 73–105; RESP 16–24; TEMP 98.2–100; O2SAT 93–97
[2017-07-17] MEDS: CHLORHEXIDINE GLUCONATE 2 % 1 PACK (2 CLOTHS) TOP SCH (04:00)
[2017-07-17] MEDS: NYSTATIN 100,000 U/GM OINT 15 GM TUBE TOPICAL SCH ×3 (05:34→21:21)
[2017-07-17 07:11] LABS: BICARBONATE 30.9 MEQ/L (21.0-32.0); CALCIUM 7.6 MG/DL (8.5-10.1); CREATININE 1.53 MG/DL (0.60-1.30)
[2017-07-17 07:12] LABS: AUTOMATED NEUTROPHIL # 5.3 TH/MM3 (1.8-7.7); BASOPHIL % 0.3 % (0.0-2.0); EOSINOPHIL % 0.4 % (0.0-4.0); HEMATOCRIT 25.7 % (39.0-51.0); HEMOGLOBIN 8.4 GM/DL (13.0-17.0); LYMPH % 21.6 % (9.0-44.0); LYMPHOCYTE # 1.5 TH/MM3 (1.0-4.8); MEAN CELL VOLUME 96.4 FL (80.0-100.0); MEAN CORPUSCULAR HEMOGLOBIN 31.7 PG (27.0-34.0); MEAN CORPUSCULAR HGB CONC 32.9 % (32.0-36.0); MEAN PLATELET VOLUME 8.9 FL (7.0-11.0); MONO % 3.7 % (0.0-8.0); MONOCYTE # 0.3 TH/MM3 (0-0.9); PLATELET COUNT 151 TH/MM3 (150-450); RED BLOOD COUNT 2.66 MIL/MM3 (4.50-5.90); RED CELL DISTRIBUTION WIDTH 19.4 % (11.6-17.2); WHITE BLOOD COUNT 7.2 TH/MM3 (4.0-11.0)
[2017-07-17] MEDS: INSULIN NovoLIN REGULAR SUPPLEMENTAL SCALE SQ SCH ×4 (08:00→22:18)
[2017-07-17] MEDS: predniSONE 10 MG TAB PO SCH (09:00)
[2017-07-17] MEDS: DOCUSATE SODIUM 50 MG/SENNA 8.6 MG TAB PO SCH ×2 (09:00→21:00)
[2017-07-17] MEDS: SENNOSIDES SYRUP 8.8 MG/5 ML CUP PO SCH (09:00)
[2017-07-17] MEDS: MICONAZOLE NITRATE 2% CREAM 15 GM TOPICAL SCH ×2 (09:00→21:21)
[2017-07-17] MEDS: AMIODARONE 200 MG TAB PO SCH (09:00)
[2017-07-17] MEDS: LACTOBACILLUS ACIDOPHILUS TAB PO SCH ×3 (09:00→18:00)
[2017-07-17] MEDS: NYSTAT/DIPHENHY/LIDO MOUTHWASH (Adult) 120ML SWISH-SWAL SCH ×4 (09:00→21:00)
[2017-07-17] MEDS: SODIUM CHLORIDE 0.9% FLUSH 10 ML FLUSH IV FLUSH SCH ×3 (09:00→21:15)
[2017-07-17] MEDS: PANTOPRAZOLE SOD 40 MG DELAYED RELEASE TAB PO SCH ×2 (09:00→21:19)
[2017-07-17] MEDS: SUCRALFATE 1 GM/10 ML CUP PO SCH ×4 (09:39→22:18)
[2017-07-17] MEDS: NYSTATIN SUSP 500,000 U/5 ML CUP SWISH-SWAL SCH ×4 (09:40→21:19)
[2017-07-17] MEDS: METHADONE HCL 10 MG/10 ML ORAL SOLUTION PO SCH ×3 (09:41→21:18)
[2017-07-17] MEDS: SODIUM CHLOR 0.9% 1000 ML INJ 1,000 ML IV SCH ×2 (10:15→21:29)
--- NOTE | 2017-07-17 10:29 | PD.ONC.PN ---
Subjective Subjective Remarks Tmax 100.0 this am Reports he feels weak He states he hasn't worked with PT but per notes he sat on edge of bed yesterday Objective Data Date Time Temp Pulse Resp B/P (MAP) Pulse Ox O2 Delivery O2 Flow Rate FiO2 07/17/17 10:04 Nasal Cannula 2.00 07/17/17 09:06 95 Nasal Cannula 2.00 07/17/17 08:34 87 07/17/17 08:34 100.0 105 24 120/72 (88) 95 07/17/17 05:33 99.0 87 16 128/70 (89) 96 07/16/17 22:56 98.6 78 16 117/67 (84) 95 07/16/17 22:23 Nasal Cannula 2.00 07/16/17 20:45 82 07/16/17 20:45 Nasal Cannula 2.00 21 07/16/17 19:45 98.3 74 16 149/74 (99) 98 07/16/17 17:06 97.0 84 20 109/57 (74) 97 07/16/17 15:58 80 07/16/17 12:00 97.0 80 20 118/60 (79) 95 07/16/17 12:00 100 07/16/17 10:48 Nasal Cannula 2.00 07/17/17 07/17/17 07/17/17 07:00 15:00 23:00 Intake Total 500 ml 100 ml Balance 500 ml 100 ml Result Diagram: 07/17/17 0627 07/17/1727 Laboratory Results Laboratory Tests Test 07/16/17 13:52 07/17/17 06:27 Blood Urea Nitrogen 38 MG/DL 33 MG/DL Creatinine 1.64 MG/DL 1.53 MG/DL Random Glucose 142 MG/DL 93 MG/DL Calcium Level 7.7 MG/DL 7.6 MG/DL Sodium Level 146 MEQ/L 147 MEQ/L Potassium Level 5.1 MEQ/L 3.9 MEQ/L Chloride Level 110 MEQ/L 111 MEQ/L Carbon Dioxide Level 31.2 MEQ/L 30.9 MEQ/L Anion Gap 5 MEQ/L 5 MEQ/L Estimat Glomerular Filtration Rate 41 ML/MIN 44 ML/MIN White Blood Count 7.2 TH/MM3 Red Blood Count 2.66 MIL/MM3 Hemoglobin 8.4 GM/DL Hematocrit 25.7 % Mean Corpuscular Volume 96.4 FL Mean Corpuscular Hemoglobin 31.7 PG Mean Corpuscular Hemoglobin Concent 32.9 % Red Cell Distribution Width 19.4 % Platelet Count 151 TH/MM3 Mean Platelet Volume 8.9 FL Neutrophils (%) (Auto) 74.0 % Lymphocytes (%) (Auto) 21.6 % Monocytes (%) (Auto) 3.7 % Eosinophils (%) (Auto) 0.4 % Basophils (%) (Auto) 0.3 % Neutrophils # (Auto) 5.3 TH/MM3 Lymphocytes # (Auto) 1.5 TH/MM3 Monocytes # (Auto) 0.3 TH/MM3 Eosinophils # (Auto) 0.0 TH/MM3 Basophils # (Auto) 0.0 TH/MM3 CBC Comment DIFF FINAL Differential Comment Administered Medications Medications (Trade) Dose Ordered Sig/Sunil Route PRN Reason Start Time Stop Time Status Last Admin Dose Admin Sodium Chloride (NS Flush) 2 ml UNSCH PRN IV FLUSH FLUSH AFTER USING IV ACCESS 06/24/17 20:30 07/12/17 10:40 Sodium Chloride (NS Flush) 2 ml BID IV FLUSH 06/24/17 21:00 07/17/17 09:00 Ondansetron HCl (Zofran Inj) 4 mg Q6H PRN IV PUSH NAUSEA OR VOMITING 06/24/17 20:30 07/03/17 17:30 Chlorhexidine Gluconate (Chlorhexidine 2% Cloth) 3 pack Taper DAILY@04 TOP 06/25/17 04:00 06/21/18 03:59 07/01/17 04:00 Senna/Docusate Sodium (Olesya-Colace) 1 tab BID PO 06/24/17 21:00 07/16/17 09:17 Bisacodyl (Dulcolax Supp) 10 mg DAILY PRN RECTAL SEVERE CONSITIPATION 06/24/17 20:30 06/28/17 08:31 Amiodarone HCl (Cordarone) 200 mg DAILY PO 06/25/17 09:00 07/17/17 09:00 Methadone HCl (Methadone Liq) 2.5 mg BID PO 06/24/17 21:00 07/17/17 09:41 Dextrose (D50w (Vial) Inj) 50 ml UNSCH PRN IV PUSH HYPOGLYCEMIA-SEE COMMENTS 06/24/17 20:30 06/24/17 21:15 Sodium Chloride (NS Flush) DAILY IV FLUSH 06/25/17 09:00 07/14/17 09:00 Sodium Chloride (NS Flush) UNSCH PRN IV FLUSH SEE PROTOCOL 06/24/17 21:30 07/15/17 20:38 Morphine Sulfate (Morphine Inj) 2 mg Q3H PRN IV PUSH pain 1-5 06/24/17 23:15 07/12/17 18:23 Morphine Sulfate (Morphine Inj) 4 mg Q3H PRN IV PUSH pain 6-10 06/24/17 23:15 07/06/17 02:26 Bisacodyl (Dulcolax Ec) 10 mg HS PO 06/26/17 21:00 07/05/17 21:13 Sennosides (Senna Liq) 8.8 mg DAILY PO 06/28/17 09:00 07/16/17 09:18 Albuterol/ Ipratropium (Duoneb Neb) 1 ampule Q2HR NEB PRN NEB SHORTNESS OF BREATH 06/29/17 08:30 07/13/17 20:43 Insulin Human Regular (NovoLIN R SUPPLEMENTAL SCALE) 1 ACHS SQ 07/02/17 12:00 07/16/17 20:29 Albuterol/ Ipratropium (Duoneb Neb) 1 ampule Q4HR NEB PRN INH SHORTNESS OF BREATH 07/05/17 17:00 07/06/17 20:26 Sucralfate (Carafate Liq) 1 gm ACHS PO 07/09/17 08:00 07/17/17 09:39 Multi-Ingredient Mouthwash/Gargle (Magic Mouthwash Adult Liq) 5 ml QID SWISH-SWAL 07/09/17 09:00 07/17/17 09:00 Nystatin (Mycostatin Liq) 5 ml QID SWISH-SWAL 07/09/17 13:00 07/17/17 09:40 Nystatin (Mycostatin Oint) 1 applic Q8HR TOPICAL 07/09/17 15:15 07/17/17 05:34 Miconazole Nitrate (Micatin 2% Cream) 1 applic Q12HR TOPICAL 07/09/17 21:00 07/16/17 20:19 Imatinib Mesylate (Gleevec) 400 mg HS PO 07/11/17 21:00 Future hold 07/15/17 20:50 Lactobacillus Acidophilus (Lactinex) 1 tab TID PO 07/11/17 18:00 07/17/17 09:00 Levofloxacin/ Dextrose 150 ml @ 100 mls/hr Q48H IV 07/13/17 23:00 07/18/17 22:59 07/15/17 23:38 Lidocaine HCl (Xylocaine 2% Viscous) 15 ml Q4H PRN SWISH-SPIT prior to taking meds 07/12/17 10:15 07/15/17 08:26 Pantoprazole Sodium (Protonix) 40 mg Q12HR PO 07/12/17 21:00 07/17/17 09:00 Prednisone (Deltasone) 10 mg DAILY PO 07/17/17 09:00 07/17/17 09:00 Sodium Chloride 1,000 ml @ 60 mls/hr [id number] IV 07/16/17 12:45 07/17/17 10:15 Objective Remarks GENERAL: Elderly male resting in bed asleep on approach. SKIN: Warm and dry. No oozing from lines HEAD: Normocephalic. EYES: No injection or drainage. MOUTH: Thrush improved from previously seen NECK: Supple, trachea midline. CARDIOVASCULAR: +S1/S2 RESPIRATORY: Clear anteriorly. Breathing unlabored. GASTROINTESTINAL: Abdomen mildly distended, non-tender. EXTREMITIES: No cyanosis. Generalized edema. NEUROLOGICAL: Lethargic but awakens when prompted. Normal speech. Follows commands. 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 Monitor periodic CBC. -- Was originally diagnosed in 1998 -- Gleevec resumed on 07/11/17 as platelets greater than 100k. (2) Pneumonia ICD Codes: J18.9 - Pneumonia, unspecified organism Status: Acute Plan: --on Levaquin (3) Candidiasis of mouth and esophagus ICD Codes: B37.81 - Candidal esophagitis; B37.0 - Candidal stomatitis Status: Acute Plan: --on oral Nystatin + diflucan (4) GI bleed ICD Codes: K92.2 - Gastrointestinal hemorrhage, unspecified Status: Acute Plan: --GI signed off on 07/15 --had incomplete colonoscopy on 07/14 which showed hemorrhoids. --Bleeding scan,07/10--> no active GI bleeding. Assessment 82 y/o male with history of CML. hematology consulted for pancytopenia Attending Statement The exam, history, and the medical decision-making described in the above note were completed with the assistance of the mid-level provider. I reviewed and agree with the findings presented. I attest that I had a [id number] encounter with the patient on the same day, and personally performed and documented my assessment and findings in the medical record. LATE ENTRY. Pt was seen yesterday. c/o weakness. does not think that he will leave the hospital. has low grade fever. Problem Qualifiers (1) Pneumonia: Khushi Reynolds Jul 17, 2017 10:29 Fabrice Patel MD Jul 18, 2017 17:24
--- NOTE | 2017-07-17 11:04 | HHI.PR ---
Subjective Remarks Patient states he doesn't feel well today, just complains of feeling weak and states he wants to go to sleep. Unclear liquid diet still per GI but has not touched his breakfast. Had a low-grade fever this morning. Objective Vitals Vital Signs Date Time Temp Pulse Resp B/P (MAP) Pulse Ox O2 Delivery O2 Flow Rate FiO2 07/17/17 10:04 Nasal Cannula 2.00 07/17/17 09:06 95 Nasal Cannula 2.00 07/17/17 08:34 87 07/17/17 08:34 100.0 105 24 120/72 (88) 95 07/17/17 05:33 99.0 87 16 128/70 (89) 96 07/16/17 22:56 98.6 78 16 117/67 (84) 95 07/16/17 22:23 Nasal Cannula 2.00 07/16/17 20:45 82 07/16/17 20:45 Nasal Cannula 2.00 21 07/16/17 19:45 98.3 74 16 149/74 (99) 98 07/16/17 17:06 97.0 84 20 109/57 (74) 97 07/16/17 15:58 80 07/16/17 12:00 97.0 80 20 118/60 (79) 95 07/16/17 12:00 100 I/O 07/16/17 07/16/17 07/16/17 07/17/17 07/17/17 07/17/17 07:00 15:00 23:00 07:00 15:00 23:00 Intake Total 150 ml 850 ml 500 ml 100 ml Output Total 250 ml 800 ml Balance -100 ml 50 ml 500 ml 100 ml Intake Oral 850 ml IV Total 150 ml 500 ml 100 ml Output Urine Total 250 ml 800 ml Result Diagram: 07/17/1762607/17/17626 Objective Remarks GENERAL: Well-nourished, well-developed pleasant elderly obese male patient. SKIN: Warm and dry. Multiple tattoos on extremities. HEAD: Normocephalic. EYES: No scleral icterus. No injection or drainage. NECK: Supple, trachea midline. No JVD or lymphadenopathy. CARDIOVASCULAR: Regular rate and rhythm without murmurs, gallops, or rubs. RESPIRATORY: Breath sounds equal bilaterally. No accessory muscle use. CTAB. GASTROINTESTINAL: Abdomen soft, non-tender, nondistended. EXTREMITIES: No peripheral edema. NEUROLOGICAL: Awake, alert, and oriented x 3. Non-focal. Procedures Echo 06/26/2017 Mildly dilated left ventricle. The left ventricular systolic function is mildly reduced with an estimated ejection fraction in the range of 45- 50%. Wall thickness is normal. A pacemaker wire is noted. There is a pacemaker wire present in the right atrial cavity. [id number] mitral valve regurgitation. There is trace tricuspid valve regurgitation. A/P Problem List: (1) Diverticulosis ICD Code: K57.90 - Diverticulosis of intestine, part unspecified, without perforation or abscess without bleeding (2) ALEJANDRA (obstructive sleep apnea) ICD Code: G47.33 - Obstructive sleep apnea (adult) (pediatric) Status: Chronic (3) Acute respiratory failure ICD Code: J96.00 - Acute respiratory failure, unspecified whether with hypoxia or hypercapnia (4) Acute kidney injury ICD Code: N17.9 - Acute kidney failure, unspecified Status: Acute (5) Thrombocytopenia ICD Code: D69.6 - Thrombocytopenia, unspecified Status: Acute (6) Macrocytic anemia ICD Code: D53.9 - Nutritional anemia, unspecified Status: Chronic (7) Diabetes mellitus ICD Code: E11.9 - Type 2 diabetes mellitus without complications (8) Chronic systolic heart failure ICD Code: I50.22 - Chronic systolic (congestive) heart failure Status: Chronic (9) Sepsis ICD Code: A41.9 - Sepsis, unspecified organism Status: Acute (10) GI bleed ICD Code: K92.2 - Gastrointestinal hemorrhage, unspecified Status: Acute (11) Bacteremia due to Klebsiella pneumoniae ICD Code: R78.81 - Bacteremia Status: Acute (12) Ileus ICD Code: K56.7 - Ileus, unspecified Status: Resolved (13) Candidiasis of mouth and esophagus ICD Code: B37.81 - Candidal esophagitis; B37.0 - Candidal stomatitis Status: Acute (14) Pneumonia ICD Code: J18.9 - Pneumonia, unspecified organism Status: Acute (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, BCR/ABL-positive, not having achieved remission Status: Chronic (16) Pancytopenia ICD Code: D61.818 - Other pancytopenia Status: Chronic (17) COPD (chronic obstructive pulmonary disease) ICD Code: J44.9 - Chronic obstructive pulmonary disease, unspecified Status: Chronic (18) Acute renal failure ICD Code: N17.9 - Acute kidney failure, unspecified Status: Acute (19) Iron deficiency anemia ICD Code: D50.9 - Iron deficiency anemia, unspecified Status: Acute (20) AICD (automatic cardioverter/defibrillator) present ICD Code: Z95.810 - Presence of automatic (implantable) cardiac defibrillator Status: Acute (21) Anemia associated with acute blood loss ICD Code: D62 - Acute posthemorrhagic anemia Status: Acute (22) Cardiomyopathy ICD Code: I42.9 - Cardiomyopathy, unspecified Status: Chronic (23) Left bundle branch block ICD Code: I44.7 - Left bundle-branch block, unspecified Status: Chronic (24) Paroxysmal ventricular tachycardia ICD Code: I47.2 - Ventricular tachycardia Status: Resolved Assessment and Plan 82-year-old male who was admitted on 06/24/2017 due to abdominal pain. He complained of right upper and lower quadrant abdominal pain radiating to his back. Patient was found to be hypotensive and received 4 L of normal saline. Lactate was essentially normal. CT abdomen pelvis showed diverticulosis, edematous gallbladder with some stones. Patient received vancomycin and Zosyn in the emergency department. He was managed in the ICU and required Levophed for hypotension. He had acute kidney injury as well which improved gradually. 1. Sepsis, hypotension - resolved. blood cultures 07/06 were positive for Klebsiella pneumoniae, also has a left lower lobe lung consolidation. blood culture 07/08 with staph epidermidis likely contaminant. On antibiotics levaquin per ID/levaquin. 2. Abdominal pain, Ileus - resolve s/p NG tube. - Cont. Lactulose, Senna, Pericolace, Dulcolax supp 3. Hospital-acquired pneumonia - stable on 2 L nasal cannula - Previous chest x-rays and CT abdomen pelvis did not identify any lung infiltrates. However, abd CT 07/05 did show LLL consolidation. Infectious disease following, patient was on Zosyn now transitioned to Levaquin, last dose today. -Repeat cxr 07/13 showed left lower lobe infiltrate. 4. COPD - followed by Dr. Escamilla as outpatient. on prednisone taper. Duo nebs as needed. 5. Chronic pain - cont methadone 2.5 mg twice a day and morphine 2 mg IV every 3 hours when necessary. 6. Oral thrush, and odynophagia - sucralfate was ordered by oncology team. - on nystatin and magic mouth wash. Status post course of Diflucan per ID. lidocaine swish and spit prior to taking by mouth meds. - GI input appreciated. S/p EGD 07/13 showing mild gastritis in the antrum and distal esophagitis - biopsies were negative for CMV/HSV, did show acute and chronic esophagitis, negative for H. pylori 7. Hematochezia - bleeding scan 07/10 negative. -H&H declined to 7.7 and he was transfused 2 units packed red blood cells on 07/12 -hb 8-9 now -EGD 07/13 - mild esophagitis, gastritis -cont protonix, monitor H&H -Status post colonoscopy on 07/14 showing incomplete prep and internal and external hemorrhoids, patient refused repeat colonoscopy -GI has signed off 8. Pancytopenia, CML - Heme/onc following. - Gleevec resumed 07/11 - held yesterday for slightly low platelets which are normal today - No anti-coagulation due to pancytopenia. HIT negative. -Follow CBC 9. 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 Nephrology is following. -s/p diuresis. Holding lasix due to hypernatremia -continue gentle IV fluids and S at 60 and miles per hour overnight and repeat BMP in the morning. -BMP shows improved creatinine today, 10. Hypernatremia -improving after holding lasix and on gentle IV fluids and S at 60 and miles per hour. ff repeat BMP. I will give gentle IV fluids overnight. 11. Chronic systolic congestive heart failure - Echo from this admission shows ejection fraction 45-50% -monitor for any fluid overload, monitor I/O. -start PO lasix when sodium improved. 12. Buttock and leg wounds: wound care following and has made recs, appreciate assistance 13. History of ventricular tachycardia status post AICD. Continue amiodarone. 14. Low grade fever 1. Monitor temps. He has loose stools likely secondary to being on liquid diet will advance to heart healthy. He had a negative C. difficile one week ago. 15. DVT px - SCDs. No anti-coagulation due to thrombocytopenia, hematology recommendations. PT/OT following DO NOT RESUSCITATE status Discharge Planning Will require SNF when stable for DC anticipate in 1-2 days if afebrile and sodium improved. Problem Qualifiers (1) Diverticulosis: (2) Acute respiratory failure: Qualified Codes: J96.02 - Acute respiratory failure with hypercapnia (3) Diabetes mellitus: Qualified Codes: E11.8 - Type 2 diabetes mellitus with unspecified complications (4) Pneumonia: Yisel Linares MD Jul 17, 2017 11:04
--- NOTE | 2017-07-17 13:54 | HHI.NPPN ---
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 I was called to see the patient because of elevated BUN and creatinine. Additional Remarks Patient is alert, feeling better, no SOB. Objective Data Data 07/17/17 07/18/17 19:00 07:00 Intake Total 100 ml Balance 100 ml IV Total 100 ml Vital Signs Date Time Temp Pulse Resp B/P (MAP) Pulse Ox O2 Delivery O2 Flow Rate FiO2 07/17/17 12:00 98.6 92 24 102/56 (71) 93 07/17/17 10:04 Nasal Cannula 2.00 07/17/17 09:06 95 Nasal Cannula 2.00 07/17/17 08:34 87 07/17/17 08:34 100.0 105 24 120/72 (88) 95 07/17/17 05:33 99.0 87 16 128/70 (89) 96 07/16/17 22:56 98.6 78 16 117/67 (84) 95 07/16/17 22:23 Nasal Cannula 2.00 07/16/17 20:45 82 07/16/17 20:45 Nasal Cannula 2.00 21 07/16/17 19:45 98.3 74 16 149/74 (99) 98 07/16/17 17:06 97.0 84 20 109/57 (74) 97 07/16/17 15:58 82 -: 07/17/17 0627 07/17/17 0627 Physical Exam General Appearance: No Acute Distress, Comfortable Eyes Eye Exam: Pupils Equal Throat Throat Exam: Oral Mucosa [place] & Moist Neck Neck Exam: Neck Supple Pulmonary Resp Exam: Breath Sounds Equal, No Distress, Rhonchi, Sputum, Decreased Bases Cardiology CV Exam: Regular, Normal Sinus Rhythm Gastrointestinal/Abdomen GI Exam: Soft, Non-Tender, Bowel Sounds Present Extremeties Extremities Exam: Moderate Edema, Pitting Edema, Dependent Edema Neurologic Neuro Exam: Alert, Awake, Oriented Psychiatric Psych Exam: Appropriate Responses Assessment/Plan Assessment Summary: LEESA/Acute Renal Failure, Hypertension, CKD Stage IV Problem List: (1) COPD (chronic obstructive pulmonary disease) ICD Codes: J44.9 - Chronic obstructive pulmonary disease, unspecified Status: Chronic (2) Bronchitis ICD Codes: J40 - Bronchitis, not specified as acute or chronic Status: Acute (3) HTN (hypertension) ICD Codes: I10 - Essential (primary) hypertension Status: Chronic (4) Diabetes mellitus ICD Codes: E11.9 - Type 2 diabetes mellitus without complications (5) Acute respiratory failure ICD Codes: J96.00 - Acute respiratory failure, unspecified whether with hypoxia or hypercapnia (6) Severe sepsis ICD Codes: A41.9 - Sepsis, unspecified organism; R65.20 - Severe sepsis without septic shock Status: Acute (7) Acute kidney injury ICD Codes: N17.9 - Acute kidney failure, unspecified Status: Acute Plan Patient has been non oliguric. Has Chronic kidney disease, possibly stage 3- 4. Now develop LEESA. K is normal, on Zosyn. ID is following. Lasix stopped. Creatinine is improving, and Na. is better. Problem Qualifiers (1) Diabetes mellitus: Qualified Codes: E11.8 - Type 2 diabetes mellitus with unspecified complications (2) Acute respiratory failure: Qualified Codes: J96.02 - Acute respiratory failure with hypercapnia Bismark Woods MD Jul 17, 2017 13:54
[2017-07-17] MEDS: BISACODYL EC 5 MG TABEC PO SCH (21:00)
[2017-07-17] MEDS: IMATINIB MESYLATE 100 MG TAB PO SCH (21:19)
[2017-07-17] MEDS: LEVOFLOXACIN 750 MG PREMIX INJ 150 ML IV SCH (23:24)
[2017-07-18] VITALS (8 sets, daily range): BP systolic 93–120; BP diastolic 54–58; PULSE 70–100; RESP 16–20; TEMP 98.4–98.8; O2SAT 94–99
[2017-07-18] MEDS: CHLORHEXIDINE GLUCONATE 2 % 1 PACK (2 CLOTHS) TOP SCH (04:00)
[2017-07-18] MEDS: NYSTATIN 100,000 U/GM OINT 15 GM TUBE TOPICAL SCH ×3 (06:26→22:21)
[2017-07-18] MEDS: SUCRALFATE 1 GM/10 ML CUP PO SCH ×4 (06:27→22:22)
[2017-07-18] MEDS: INSULIN NovoLIN REGULAR SUPPLEMENTAL SCALE SQ SCH ×4 (08:00→22:50)
[2017-07-18] MEDS: DOCUSATE SODIUM 50 MG/SENNA 8.6 MG TAB PO SCH ×2 (09:00→22:22)
[2017-07-18] MEDS: NYSTAT/DIPHENHY/LIDO MOUTHWASH (Adult) 120ML SWISH-SWAL SCH ×4 (09:00→22:26)
[2017-07-18] MEDS: SODIUM CHLORIDE 0.9% FLUSH 10 ML FLUSH IV FLUSH SCH ×3 (09:00→22:26)
[2017-07-18] MEDS: MICONAZOLE NITRATE 2% CREAM 15 GM TOPICAL SCH ×2 (09:00→22:27)
[2017-07-18] MEDS: SENNOSIDES SYRUP 8.8 MG/5 ML CUP PO SCH (09:00)
[2017-07-18] MEDS: AMIODARONE 200 MG TAB PO SCH (10:11)
[2017-07-18] MEDS: LACTOBACILLUS ACIDOPHILUS TAB PO SCH ×3 (10:11→18:00)
[2017-07-18] MEDS: PANTOPRAZOLE SOD 40 MG DELAYED RELEASE TAB PO SCH ×2 (10:11→22:22)
[2017-07-18] MEDS: NYSTATIN SUSP 500,000 U/5 ML CUP SWISH-SWAL SCH ×4 (10:11→22:22)
[2017-07-18] MEDS: predniSONE 10 MG TAB PO SCH (10:11)
[2017-07-18] MEDS: METHADONE HCL 10 MG/10 ML ORAL SOLUTION PO SCH ×2 (10:12→22:25)
--- NOTE | 2017-07-18 10:53 | HHI.PR ---
Subjective Remarks With edema in arms. Discussed with the nurse, stop fluids and will do US Patient feels tires. No sob, no chest pain . Denies fever or chills. He is not coughing. No n/v/d/c. Objective Vitals Vital Signs Date Time Temp Pulse Resp B/P (MAP) Pulse Ox O2 Delivery O2 Flow Rate FiO2 07/18/17 08:47 98.6 85 18 102/54 (70) 98 07/18/17 08:08 98 Nasal Cannula 2.00 07/18/17 04:00 98.4 84 18 93/56 (68) 94 07/18/17 00:00 98.7 70 16 120/55 (76) 96 07/17/17 20:52 97 Nasal Cannula 2.00 07/17/17 20:00 98.2 73 16 110/54 (72) 96 07/17/17 19:15 77 07/17/17 19:00 96 Nasal Cannula 2.00 07/17/17 16:23 98.2 86 20 115/52 (73) 96 07/17/17 12:00 98.6 92 24 102/56 (71) 93 I/O 07/17/17 07/17/17 07/17/17 07/18/17 07/18/17 07/18/17 07:00 15:00 23:00 07:00 15:00 23:00 Intake Total 500 ml 100 ml 720 ml 1080 ml Output Total 500 ml 500 ml Balance 500 ml 100 ml 220 ml 580 ml Intake Oral 720 ml 360 ml IV Total 500 ml 100 ml 720 ml Output Urine Total 500 ml 500 ml # Voids 1 Result Diagram: 07/17/1762607/17/17626 Imaging Last Impressions Chest X-Ray 07/13/17599 Signed Impressions: Service Date/Time: Thursday, July 13, 2017 04:40 - CONCLUSION: Mild left basilar opacity could represent atelectasis or consolidation. No pneumothorax is present. Alli Cohen MD GI Bleed Scan Nuclear Medicine 07/10/17 0000 Signed Impressions: Service Date/Time: June 16:42 - CONCLUSION: No active gastrointestinal bleeding Alli Teague MD Abdomen X-Ray 07/08/17 0600 Signed Impressions: Service Date/Time: Saturday, July 08, 2017 04:09 - CONCLUSION: Negative KUB. Alli Schroeder MD Abdomen/Pelvis CT 07/05/17 0000 Signed Impressions: Service Date/Time: Wednesday, July 05, 2017 15:06 - CONCLUSION: 1. Left lower lobe consolidation. 2. Dilated loops of proximal and mid small bowel. 3. Stable distal abdominal aortic aneurysm. 4. Stable sigmoid diverticulosis without evidence of diverticulitis. David Gutierrez MD Hepatobiliary Scan Nuclear Medicine 06/25/17 0000 Signed Impressions: Service Date/Time: Sunday, June 25, 2017 10:43 - CONCLUSION: 1. No evidence for cystic duct obstruction. 2. Biliary enteric reflux. Braulio Sellers MD Objective Remarks GENERAL: Well-nourished, well-developed pleasant elderly obese male patient. SKIN: Warm and dry. Multiple tattoos on extremities. behnd ears small skin breakdown form O2 use. HEAD: Normocephalic. EYES: No scleral icterus. No injection or drainage. NECK: Supple, trachea midline. No JVD or lymphadenopathy. CARDIOVASCULAR: Regular rate and rhythm without murmurs, gallops, or rubs. RESPIRATORY: Breath sounds equal bilaterally. No accessory muscle use. CTAB. GASTROINTESTINAL: Abdomen soft, non-tender, nondistended. EXTREMITIES: No peripheral edema. NEUROLOGICAL: Awake, alert, and oriented x 3. Non-focal. Procedures Echo 06/26/2017 Mildly dilated left ventricle. The left ventricular systolic function is mildly reduced with an estimated ejection fraction in the range of 45- 50%. Wall thickness is normal. A pacemaker wire is noted. There is a pacemaker wire present in the right atrial cavity. [id number] mitral valve regurgitation. There is trace tricuspid valve regurgitation. A/P Problem List: (1) Diverticulosis ICD Code: K57.90 - Diverticulosis of intestine, part unspecified, without perforation or abscess without bleeding (2) ALEJANDRA (obstructive sleep apnea) ICD Code: G47.33 - Obstructive sleep apnea (adult) (pediatric) Status: Chronic (3) Acute respiratory failure ICD Code: J96.00 - Acute respiratory failure, unspecified whether with hypoxia or hypercapnia (4) Acute kidney injury ICD Code: N17.9 - Acute kidney failure, unspecified Status: Acute (5) Thrombocytopenia ICD Code: D69.6 - Thrombocytopenia, unspecified Status: Acute (6) Macrocytic anemia ICD Code: D53.9 - Nutritional anemia, unspecified Status: Chronic (7) Diabetes mellitus ICD Code: E11.9 - Type 2 diabetes mellitus without complications (8) Chronic systolic heart failure ICD Code: I50.22 - Chronic systolic (congestive) heart failure Status: Chronic (9) Sepsis ICD Code: A41.9 - Sepsis, unspecified organism Status: Acute (10) GI bleed ICD Code: K92.2 - Gastrointestinal hemorrhage, unspecified Status: Acute (11) Bacteremia due to Klebsiella pneumoniae ICD Code: R78.81 - Bacteremia Status: Acute (12) Ileus ICD Code: K56.7 - Ileus, unspecified Status: Resolved (13) Candidiasis of mouth and esophagus ICD Code: B37.81 - Candidal esophagitis; B37.0 - Candidal stomatitis Status: Acute (14) Pneumonia ICD Code: J18.9 - Pneumonia, unspecified organism Status: Acute (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, BCR/ABL-positive, not having achieved remission Status: Chronic (16) Pancytopenia ICD Code: D61.818 - Other pancytopenia Status: Chronic (17) COPD (chronic obstructive pulmonary disease) ICD Code: J44.9 - Chronic obstructive pulmonary disease, unspecified Status: Chronic (18) Acute renal failure ICD Code: N17.9 - Acute kidney failure, unspecified Status: Acute (19) Iron deficiency anemia ICD Code: D50.9 - Iron deficiency anemia, unspecified Status: Acute (20) AICD (automatic cardioverter/defibrillator) present ICD Code: Z95.810 - Presence of automatic (implantable) cardiac defibrillator Status: Acute (21) Anemia associated with acute blood loss ICD Code: D62 - Acute posthemorrhagic anemia Status: Acute (22) Cardiomyopathy ICD Code: I42.9 - Cardiomyopathy, unspecified Status: Chronic (23) Left bundle branch block ICD Code: I44.7 - Left bundle-branch block, unspecified Status: Chronic (24) Paroxysmal ventricular tachycardia ICD Code: I47.2 - Ventricular tachycardia Status: Resolved Assessment and Plan 82-year-old male who was admitted on 06/24/2017 due to abdominal pain. He complained of right upper and lower quadrant abdominal pain radiating to his back. Patient was found to be hypotensive and received 4 L of normal saline. Lactate was essentially normal. CT abdomen pelvis showed diverticulosis, edematous gallbladder with some stones. Patient received vancomycin and Zosyn in the emergency department. He was managed in the ICU and required Levophed for hypotension. He had acute kidney injury as well which improved gradually. Sepsis, hypotension - resolved. blood cultures 07/06 were positive for Klebsiella pneumoniae, also has a left lower lobe lung consolidation. blood culture 07/08 with staph epidermidis likely contaminant. On antibiotics levaquin per ID/levaquin. Abdominal pain, Ileus - resolve s/p NG tube. Cont. Lactulose, Senna, Pericolace, Dulcolax supp Hospital-acquired pneumonia - stable on 2 L nasal cannula Previous chest x-rays and CT abdomen pelvis did not identify any lung infiltrates. However, abd CT 07/05 did show LLL consolidation. Infectious disease following, patient was on Zosyn now transitioned to Levaquin, last dose today. Repeat cxr 07/13 showed left lower lobe infiltrate. COPD - followed by Dr. Escamilla as outpatient. on prednisone taper. Duo nebs as needed. Chronic pain - cont methadone 2.5 mg twice a day and morphine 2 mg IV every 3 hours when necessary. Oral thrush, and odynophagia sucralfate was ordered by oncology team. on nystatin and magic mouth wash. Status post course of Diflucan per ID. lidocaine swish and spit prior to taking by mouth meds. GI input appreciated. S/p EGD 07/13 showing mild gastritis in the antrum and distal esophagitis - biopsies were negative for CMV/HSV, did show acute and chronic esophagitis, negative for H. pylori Do swallow evaluation. ST consulted Hematochezia bleeding scan 07/10 negative. H&H declined to 7.7 and he was transfused 2 units packed red blood cells on 07/12 -hb 8-9 now EGD 07/13 - mild esophagitis, gastritis cont protonix, monitor H&H Status post colonoscopy on 07/14 showing incomplete prep and internal and external hemorrhoids, patient refused repeat colonoscopy GI has signed off Pancytopenia, CML Heme/onc following. Gleevec resumed 07/11 - held yesterday for slightly low platelets which are normal today No anti-coagulation due to pancytopenia. HIT negative. Follow CBC Acute kidney injury, Chronic kidney disease possibly stage 3-4 Creatinine is much improved. Nephrology is following. s/p diuresis. Holding lasix due to hypernatremia -received gentle IV fluids NSat 60 cc/h overnight, stopped as patien twith UE edema. Monitor BMP in the morning. BMP shows improved creatinine today, BL upper extremity edema. Do Doppler US to r/o DVT./ Stop IVF Hypernatremia improving after holding lasix and on gentle IV fluids and S at 60 and miles per hour. ff repeat BMP. I will give gentle IV fluids overnight. Chronic systolic congestive heart failure Echo from this admission shows ejection fraction 45-50% monitor for any fluid overload, monitor I/O. start PO lasix when sodium improved. Buttock and leg wounds: wound care following and has made recs, appreciate assistance History of ventricular tachycardia status post AICD. Continue amiodarone. Low grade fever 1. Monitor temps. He has loose stools likely secondary to being on liquid diet will advance to heart healthy. He had a negative C. difficile one week ago. DVT px - SCDs. No anti-coagulation due to thrombocytopenia, hematology recommendations. PT/OT following DO NOT RESUSCITATE status Discharge Planning Will require SNF when stable for DC anticipate in 1-2 days if afebrile and sodium improved. Problem Qualifiers (1) Diverticulosis: (2) Acute respiratory failure: Qualified Codes: J96.02 - Acute respiratory failure with hypercapnia (3) Diabetes mellitus: Qualified Codes: E11.8 - Type 2 diabetes mellitus with unspecified complications (4) Pneumonia: Deepika Ortega MD Jul 18, 2017 10:53
--- NOTE | 2017-07-18 15:09 | RADRPT ---
EXAM DATE/TIME: 07/18/2017 13:24 [facility] COMPARISON: No previous studies available for comparison. INDICATIONS : Bilateral arm swelling. MEDICAL HISTORY : Myocardial infarction. CHF. Hypertension. COPD. Migraines. Emphysema. Dyspnea. GERD. Renal disease. Kidney stones. Diabetes. Leukemia. Chemotherapy. Radiation therapy. SURGICAL HISTORY : Pacemaker. Left knee surgery. ENCOUNTER: Initial ACUITY: 1 day PAIN SCORE: 3/10 LOCATION: Bilateral arm. FINDINGS: RIGHT UPPER EXTREMITY: There is spontaneous flow documented in the brachial, basilic, cephalic, axillary, and subclavian vei ns. The vessels are compressible and augmentation response is documented. No filling defects are se en. The flow is phasic with respiration. Direction of flow in the jugular vein is caudal. LEFT UPPER EXTREMITY: There is thrombus within the proximal to mid aspect of the cephalic vein. The thrombus appears occlus derrick with no color Doppler signal visualized within the vessel. The remaining veins of the left upper extremity including the internal jugular vein are patent. CONCLUSION: 1. Occlusive thrombus within the proximal and mid aspect of the left cephalic vein. 2. The remaining veins of both upper extremities are patent. Alli Cohen MD on July 18, 2017 at 15:06 Board Certified Radiologist. This report was verified electronically.
--- NOTE | 2017-07-18 15:19 | HHI.HCPN ---
Reason for visit a. To assist with evaluation and management of symptoms including: dyspnea, pain, n/v/constipation b. To assist medical decision maker(s) with: better understanding of current medical conditions; weighing benefits/burdens of medical treatment options; making medical treatment decisions. Subjective/Interval History Pt seen today to follow up on comfort, goals. Pt resp status has remained stable on NC O2. Working w PT, OT. CM working on d/ c planning to SNF. Renal functions improved, BUN 33, creatinine 1.53, voiding adequately. Having persistent edema BUE, s/p ultrasound r/o dvt, results pending at time of my exam. Wound care cont to follow for buttocks, Lt heel wound, pt now on specialty air bed. Oral thrush improving, taking fair PO now. Ate 50-75-100% of meals yesterday. Gleevec resumed 07/12 per oncology. Patient seen in room at bedside. He is drinking ensure. He is lethargic but participates in conversation some. He endorses breathing feels ok, no distress. No GI complaints. C/o edema to BUE, denies pain to BUE. endorses he is feeling better overall and that he eats more when she encourages him. Gently explore that though conditions have stabilized and improved some, pt does remain high risk for further debility and associated complications due to his prolonged illness and hospital course. expresses understand. Review that if he does decline and no longer desires aggressive interventions or hospitalizations, he may wish to elect hospice. endorses for now they are hopeful he may continue to improve, and stay stable. . Advance Directives Living Will: Completed, but not made available Health Care Surrogate: Completed, but not made available Objective Vital Signs Date Time Temp Pulse Resp B/P (MAP) Pulse Ox O2 Delivery O2 Flow Rate FiO2 07/18/17 13:13 98.8 93 18 95/58 (70) 99 07/18/17 08:47 98.6 85 18 102/54 (70) 98 07/18/17 08:08 98 Nasal Cannula 2.00 07/18/17 08:00 Nasal Cannula 3.00 07/18/17 08:00 100 07/18/17 04:00 98.4 84 18 93/56 (68) 94 07/18/17 00:00 98.7 70 16 120/55 (76) 96 07/17/17 20:52 97 Nasal Cannula 2.00 07/17/17 20:00 98.2 73 16 110/54 (72) 96 07/17/17 19:15 77 07/17/17 19:00 96 Nasal Cannula 2.00 07/17/17 16:23 98.2 86 20 115/52 (73) 96 Intake & Output 07/18/17 07/18/17 07:00 19:00 Intake Total 1080 ml Output Total 500 ml Balance 580 ml Intake Oral 360 ml IV Total 720 ml Output Urine Total 500 ml Physical Exam CONSTITUTIONAL/GENERAL: lethargic, adequately nourished male. TUBES/LINES/DRAINS: Peripheral upper extremity, NC O2 3L SKIN: No jaundice, rashes, or lesions. No wounds seen anteriorly- reported wound to heel, buttocks I did not visualize. Skin warm, dry.+ hands, arms. ENT: Hard of hearing. Nose without bleeding or purulent drainage. Lips, mucous membranes dry. thrush resolved- no exudates or lesions visible CARDIOVASCULAR: Regular rate and rhythm without murmur. Peripheral pulses symmetric. + edema hands/arms RESPIRATORY/CHEST: Symmetric, unlabored respirations. Coarse air movement throughout, diminished bases. GASTROINTESTINAL: Abdomen soft, round, nontender. No palpable masses. No guarding. Bowel sounds normoactive GENITOURINARY: Without palpable bladder distension. Voids to urinal observe clear dark yellow urine present MUSCULOSKELETAL: Extremities without clubbing, cyanosis. 1+ edema BUE. No joint tenderness or effusion noted. No mottling or clubbing. NEUROLOGICAL: lethargic, arouses some, Mostly oriented though forgetful. Some limited insight. Moves all 4 extremities, generally cooperative. PSYCHIATRIC: No obvious anxiety/depression. Diagnostic Tests Laboratory Laboratory Tests Test 07/16/17 09:15 07/16/17 13:52 07/17/17 06:27 White Blood Count 6.7 TH/MM3 (4.0-11.0) 7.2 TH/MM3 (4.0-11.0) Red Blood Count 2.55 MIL/MM3 (4.50-5.90) 2.66 MIL/MM3 (4.50-5.90) Hemoglobin 8.1 GM/DL (13.0-17.0) 8.4 GM/DL (13.0-17.0) Hematocrit 24.2 % (39.0-51.0) 25.7 % (39.0-51.0) Mean Corpuscular Volume 95.1 FL (80.0-100.0) 96.4 FL (80.0-100.0) Mean Corpuscular Hemoglobin 31.9 PG (27.0-34.0) 31.7 PG (27.0-34.0) Mean Corpuscular Hemoglobin Concent 33.5 % (32.0-36.0) 32.9 % (32.0-36.0) Red Cell Distribution Width 18.4 % (11.6-17.2) 19.4 % (11.6-17.2) Platelet Count 95 TH/MM3 (150-450) 151 TH/MM3 (150-450) Mean Platelet Volume 10.1 FL (7.0-11.0) 8.9 FL (7.0-11.0) Neutrophils (%) (Auto) 77.1 % (16.0-70.0) 74.0 % (16.0-70.0) Lymphocytes (%) (Auto) 19.2 % (9.0-44.0) 21.6 % (9.0-44.0) Monocytes (%) (Auto) 2.9 % (0.0-8.0) 3.7 % (0.0-8.0) Eosinophils (%) (Auto) 0.5 % (0.0-4.0) 0.4 % (0.0-4.0) Basophils (%) (Auto) 0.3 % (0.0-2.0) 0.3 % (0.0-2.0) Neutrophils # (Auto) 5.2 TH/MM3 (1.8-7.7) 5.3 TH/MM3 (1.8-7.7) Lymphocytes # (Auto) 1.3 TH/MM3 (1.0-4.8) 1.5 TH/MM3 (1.0-4.8) Monocytes # (Auto) 0.2 TH/MM3 (0-0.9) 0.3 TH/MM3 (0-0.9) Eosinophils # (Auto) 0.0 TH/MM3 (0-0.4) 0.0 TH/MM3 (0-0.4) Basophils # (Auto) 0.0 TH/MM3 (0-0.2) 0.0 TH/MM3 (0-0.2) CBC Comment AUTO DIFF DIFF FINAL Differential Total Cells Counted 100 Neutrophils % (Manual) 60 % (16-70) Band Neutrophils % 17 % (0-6) Lymphocytes % 19 % (9-44) Monocytes % 2 % (0-8) Neutrophils # (Manual) 5.3 TH/MM3 (1.8-7.7) Metamyelocytes 1 % (0-1) Myelocytes 1 % (0-0) Nucleated Red Blood Cells 1 /100 WBC (0-0) Differential Comment FINAL DIFF MANUAL Toxic Granulation 2+ (NORMAL) Platelet Estimate LOW (NORMAL) Platelet Morphology Comment ENLARGED (NORMAL) Hematology Comments Blood Urea Nitrogen 38 MG/DL (7-18) 33 MG/DL (7-18) Creatinine 1.64 MG/DL (0.60-1.30) 1.53 MG/DL (0.60-1.30) Random Glucose 142 MG/DL (74-106) 93 MG/DL (74-106) Calcium Level 7.7 MG/DL (8.5-10.1) 7.6 MG/DL (8.5-10.1) Sodium Level 146 MEQ/L (136-145) 147 MEQ/L (136-145) Potassium Level 5.1 MEQ/L (3.5-5.1) 3.9 MEQ/L (3.5-5.1) Chloride Level 110 MEQ/L (98-107) 111 MEQ/L (98-107) Carbon Dioxide Level 31.2 MEQ/L (21.0-32.0) 30.9 MEQ/L (21.0-32.0) Anion Gap 5 MEQ/L (5-15) 5 MEQ/L (5-15) Estimat Glomerular Filtration Rate 41 ML/MIN (>89) 44 ML/MIN (>89) Result Diagram: 07/17/1762607/17/17626 Microbiology Microbiology Date/Time Source Procedure Growth Status 07/08/17 06:32 Blood Peripheral Aerobic Blood Culture - Final Staphylococcus Epidermidis Complete 07/08/17 06:32 Blood Peripheral Anaerobic Blood Culture - Final QNS - SEE AEROBE REPORT Complete 07/10/17 08:22 Stool Stool Stool Occult Blood (EVELIA) - Final HEMOCCULT NEGATIVE Complete 07/05/17 21:00 Sputum Expectorated Sputum Gram Stain - Final Complete 07/05/17 21:00 Sputum Culture - Final Klebsiella Pneumoniae Pseudomonas Aeruginosa Complete 06/24/17 15:55 Urine Catheterized Urine Urine Culture - Final NO GROWTH IN 48 HOURS. Complete Imaging Last Impressions U/S 07.18.17 - pending Chest X-Ray 07/13/17 0600 Signed Impressions: Service Date/Time: Thursday, July 13, 2017 04:40 - CONCLUSION: Mild left basilar opacity could represent atelectasis or consolidation. No pneumothorax is present. Alli Cohen MD GI Bleed Scan Nuclear Medicine 07/10/17 0000 Signed Impressions: Service Date/Time: June 16:42 - CONCLUSION: No active gastrointestinal bleeding Alli Teague MD Abdomen X-Ray 07/08/17 0600 Signed Impressions: Service Date/Time: Saturday, July 08, 2017 04:09 - CONCLUSION: Negative KUB. Alli Schroeder MD Abdomen/Pelvis CT 07/05/17 0000 Signed Impressions: Service Date/Time: Wednesday, July 05, 2017 15:06 - CONCLUSION: 1. Left lower lobe consolidation. 2. Dilated loops of proximal and mid small bowel. 3. Stable distal abdominal aortic aneurysm. 4. Stable sigmoid diverticulosis without evidence of diverticulitis. David Gutierrez MD Hepatobiliary Scan Nuclear Medicine 06/25/17 0000 Signed Impressions: Service Date/Time: Sunday, June 25, 2017 10:43 - CONCLUSION: 1. No evidence for cystic duct obstruction. 2. Biliary enteric reflux. Braulio Sellers MD Assessment and Plan Disease Oriented Problem List: (1) CKD (chronic kidney disease), stage III (2) Acute renal failure (3) Hypotension (4) Severe sepsis (5) Diverticulosis (6) Chronic systolic heart failure (7) CML (chronic myelocytic leukemia) (8) Pancytopenia (9) COPD (chronic obstructive pulmonary disease) (10) Diabetes mellitus Symptom Scale: (1) Dyspnea 0-10 Scale: 2 (2) Pain (3) Nausea (4) Constipation (5) Fatigue Pertinent Non-Medical Issues Psychosocial:lives at home with his of 61 years. Originally from [place] moved to [place] in the late . His adult children and grandchildren still reside in [place]. Retired from [employer]. Spiritual:Does not indicate any spiritual/taoism preference does not want instrument tech visits..( later indicates that he would in fact want instrument tech visits and requests them-she indicates that they have no particular affiliation but believes in God and would want to support) Legal: Patient is lethargic, alertness fluctuates, he seems to have on some understanding/insight; likely would best be supported by shared decision-making by either his or whomever is designated healthcare surrogate. Ethical issues impacting care: Important Contacts Jazzy Tabares [phone] . Prognosis This patient was admitted for nausea vomiting and severe abdominal pain. Along his course he is found to have significant hypotension requiring aggressive fluid resuscitation. Sepsis workup essentially negative though he has had ongoing GI pathology. He continues to have GI distention and ileus. May have pleural effusion, has had increased FiO2 requirements. Underlying COPD. Overall prognosis to recover to prior level of independence is guarded patient may require rehabilitation following this acute hospitalization. Additionally patient is very high risk for further complications and setbacks and decline secondary to his advanced age, limited desire to participate, and multiple medical issues. . Code Status: No Code Plan * Legal decision maker:Patient is lethargic at times, alertness fluctuates, he seems to have on some understanding/insight; likely would best be supported by shared decision-making by his . * Goals: For now they wish to maximize ongoing treatments to try to improve patient health enough to return home, goals aggressive short of resuscitation. * CODE STATUS: DNR * SYMPTOMS: --Dyspnea-CXR 06/29 with mild bibasilar atelectasis; has remained acutely hospitalized, increased FiO2 requirements currently requiring 50% FiO2-- today weaned to NC. Abdomen pelvis CT from 07/05 indicative of lower lobe consolidation. Has not been utilizing incentive spirometry. Has not been out of bed or ambulating regularly. Underlying history of COPD O2 dependent at night and utilized O2 as needed during the day. High risk for further respiratory decline secondary to acute illness and underlying medical comorbidities. Patient denies any dyspnea today; endorses breathing overall feeling fine --Pain--abdominal pain probably secondary to ileus-- improved. 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 He has been on methadone outpatient though he is unable to further describe for me how long he has been on this or who prescribed for him. For now will monitor ongoing prn requirements further recommendations or titration pending patient ability to qualify pain; as well as prn acquired/efficacy. discussed sedation vs pain relief w pt /family on prior interactions,and limited up-titration of pain medication 2/2 to mental status, aggressive goals . Pt comfortable 07/18/17 --Nausea/vomiting-patient with intermittent episodes of nausea and vomiting 2 /2 ileus, abdominal pathology. Some relief with NG tube in place .Out put decreased, KUB neg for ileus, NGT d/c several days ago. Patient denies any nausea or GI complaints today --Constipation-Constipation resolved, several BMS 07/15; patient with intermittent episodes of nausea and vomiting 2/2 ileus, abdominal pathology during this acute hospitalization. --Fatigue/generalized weakness-generalized deconditioning during hospital course, + ileus, pulmonary effusion, activity further limited by chronic comorbid conditions COPD, now with prolonged (24 day) hospitalization and has intermittently refused to participate with PT, though most recently participating w PT, OT. Likely require ongoing PT for reconditioning and possibly rehabilitation at discharge. -- Oral thrush-prev. painful lesions on tongue. magic mouthwash + nystatin added, now resolving * Palliative care will continue to follow during hospital course as condition evolves, to assist patient/decision-maker with understanding of medical conditions, weighing benefits/burdens of treatment options, for clarification of goals of treatment. Additionally will assist with any symptoms of palliative concern Time Spent Total Floor Time (mins): 20 (chart review, PE, d/w ) Attestation To help prompt me to consider important information that might be impacting today's encounter and assessment, information from prior notes written by myself or my colleagues may have been "brought forward" into today's note. My signature on this note, however, is an attestation that I personally performed the exam, history, and/or decision-making noted today, and, unless otherwise indicated, the interactions with patient, family, and staff as well as the review of records all occurred today. I also attest that the listed assessment and stated plan reflect my best clinical judgment today based on the combination of historical information, prior notes, and today's exam/ interactions. When time spent is documented, it refers only to time spent today by the signer, or if indicated, combined time spent today by collaborating physician/nurse practitioner. Rashmi Collazo Jul 18, 2017 15:19
--- NOTE | 2017-07-18 15:58 | HHI.NPPN ---
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 I was called to see the patient because of elevated BUN and creatinine. Additional Remarks Patient is alert, feeling better, no SOB. Objective Data Data Vital Signs Date Time Temp Pulse Resp B/P (MAP) Pulse Ox O2 Delivery O2 Flow Rate FiO2 07/18/17 13:13 98.8 93 18 95/58 (70) 99 07/18/17 08:47 98.6 85 18 102/54 (70) 98 07/18/17 08:08 98 Nasal Cannula 2.00 07/18/17 08:00 Nasal Cannula 3.00 07/18/17 08:00 100 07/18/17 04:00 98.4 84 18 93/56 (68) 94 07/18/17 00:00 98.7 70 16 120/55 (76) 96 07/17/17 20:52 97 Nasal Cannula 2.00 07/17/17 20:00 98.2 73 16 110/54 (72) 96 07/17/17 19:15 77 07/17/17 19:00 96 Nasal Cannula 2.00 07/17/17 16:23 98.2 86 20 115/52 (73) 96 -: 07/17/17 0627 07/17/17 0627 Physical Exam General Appearance: No Acute Distress, Comfortable Eyes Eye Exam: Pupils Equal Throat Throat Exam: Oral Mucosa [place] & Moist Neck Neck Exam: Neck Supple Pulmonary Resp Exam: Breath Sounds Equal, No Distress, Rhonchi, Sputum, Decreased Bases Cardiology CV Exam: Regular, Normal Sinus Rhythm Gastrointestinal/Abdomen GI Exam: Soft, Non-Tender, Bowel Sounds Present Extremeties Extremities Exam: Moderate Edema, Pitting Edema, Dependent Edema Neurologic Neuro Exam: Alert, Awake, Oriented Psychiatric Psych Exam: Appropriate Responses Assessment/Plan Assessment Summary: LEESA/Acute Renal Failure, Hypertension, CKD Stage IV Problem List: (1) COPD (chronic obstructive pulmonary disease) ICD Codes: J44.9 - Chronic obstructive pulmonary disease, unspecified Status: Chronic (2) Bronchitis ICD Codes: J40 - Bronchitis, not specified as acute or chronic Status: Acute (3) HTN (hypertension) ICD Codes: I10 - Essential (primary) hypertension Status: Chronic (4) Diabetes mellitus ICD Codes: E11.9 - Type 2 diabetes mellitus without complications (5) Acute respiratory failure ICD Codes: J96.00 - Acute respiratory failure, unspecified whether with hypoxia or hypercapnia (6) Severe sepsis ICD Codes: A41.9 - Sepsis, unspecified organism; R65.20 - Severe sepsis without septic shock Status: Acute (7) Acute kidney injury ICD Codes: N17.9 - Acute kidney failure, unspecified Status: Acute Plan Patient has been non oliguric. Has Chronic kidney disease, possibly stage 3- 4. Now develop LEESA. K is normal, on Zosyn. ID is following. Lasix stopped. Creatinine is improving, and Na. is better. Problem Qualifiers (1) Diabetes mellitus: Qualified Codes: E11.8 - Type 2 diabetes mellitus with unspecified complications (2) Acute respiratory failure: Qualified Codes: J96.02 - Acute respiratory failure with hypercapnia Bismark Woods MD Jul 18, 2017 15:58
--- NOTE | 2017-07-18 17:27 | PD.ONC.PN ---
Subjective Subjective Remarks c/o dysphagia Objective Data Date Time Temp Pulse Resp B/P (MAP) Pulse Ox O2 Delivery O2 Flow Rate FiO2 07/18/17 16:57 98.7 91 20 104/56 (72) 99 07/18/17 13:13 98.8 93 18 95/58 (70) 99 07/18/17 08:47 98.6 85 18 102/54 (70) 98 07/18/17 08:08 98 Nasal Cannula 2.00 07/18/17 08:00 Nasal Cannula 3.00 07/18/17 08:00 100 07/18/17 04:00 98.4 84 18 93/56 (68) 94 07/18/17 00:00 98.7 70 16 120/55 (76) 96 07/17/17 20:52 97 Nasal Cannula 2.00 07/17/17 20:00 98.2 73 16 110/54 (72) 96 07/17/17 19:15 77 07/17/17 19:00 96 Nasal Cannula 2.00 07/18/17 07/18/17 07/18/17 07:00 15:00 23:00 Intake Total 1080 ml Output Total 500 ml Balance 580 ml Result Diagram: 07/17/17 0627 07/17/17 0627 Imaging Studies Last 24 hours Impressions Upper Extremity Ultrasound 07/18/17 0000 Signed Impressions: Service Date/Time: Tuesday, July 18, 2017 13:24 - CONCLUSION: 1. Occlusive thrombus within the proximal and mid aspect of the left cephalic vein. 2. The remaining veins of both upper extremities are patent. Alli Cohen MD Administered Medications Medications (Trade) Dose Ordered Sig/Sunil Route PRN Reason Start Time Stop Time Status Last Admin Dose Admin Sodium Chloride (NS Flush) 2 ml UNSCH PRN IV FLUSH FLUSH AFTER USING IV ACCESS 06/24/17 20:30 07/12/17 10:40 Sodium Chloride (NS Flush) 2 ml BID IV FLUSH 06/24/17 21:00 07/17/17 21:15 Ondansetron HCl (Zofran Inj) 4 mg Q6H PRN IV PUSH NAUSEA OR VOMITING 06/24/17 20:30 07/03/17 17:30 Chlorhexidine Gluconate (Chlorhexidine 2% Cloth) 3 pack Taper DAILY@04 TOP 06/25/17 04:00 06/21/18 03:59 07/01/17 04:00 Senna/Docusate Sodium (Olesya-Colace) 1 tab BID PO 06/24/17 21:00 07/16/17 09:17 Bisacodyl (Dulcolax Supp) 10 mg DAILY PRN RECTAL SEVERE CONSITIPATION 06/24/17 20:30 06/28/17 08:31 Amiodarone HCl (Cordarone) 200 mg DAILY PO 06/25/17 09:00 07/18/17 10:11 Methadone HCl (Methadone Liq) 2.5 mg BID PO 06/24/17 21:00 07/18/17 10:12 Dextrose (D50w (Vial) Inj) 50 ml UNSCH PRN IV PUSH HYPOGLYCEMIA-SEE COMMENTS 06/24/17 20:30 06/24/17 21:15 Sodium Chloride (NS Flush) DAILY IV FLUSH 06/25/17 09:00 07/14/17 09:00 Sodium Chloride (NS Flush) UNSCH PRN IV FLUSH SEE PROTOCOL 06/24/17 21:30 07/15/17 20:38 Morphine Sulfate (Morphine Inj) 2 mg Q3H PRN IV PUSH pain 1-5 06/24/17 23:15 07/12/17 18:23 Morphine Sulfate (Morphine Inj) 4 mg Q3H PRN IV PUSH pain 6-10 06/24/17 23:15 07/06/17 02:26 Bisacodyl (Dulcolax Ec) 10 mg HS PO 06/26/17 21:00 07/05/17 21:13 Sennosides (Senna Liq) 8.8 mg DAILY PO 06/28/17 09:00 07/16/17 09:18 Albuterol/ Ipratropium (Duoneb Neb) 1 ampule Q2HR NEB PRN NEB SHORTNESS OF BREATH 06/29/17 08:30 07/13/17 20:43 Insulin Human Regular (NovoLIN R SUPPLEMENTAL SCALE) 1 ACHS SQ 07/02/17 12:00 07/17/17 22:18 Albuterol/ Ipratropium (Duoneb Neb) 1 ampule Q4HR NEB PRN INH SHORTNESS OF BREATH 07/05/17 17:00 07/06/17 20:26 Sucralfate (Carafate Liq) 1 gm ACHS PO 07/09/17 08:00 07/18/17 10:11 Multi-Ingredient Mouthwash/Gargle (Magic Mouthwash Adult Liq) 5 ml QID SWISH-SWAL 07/09/17 09:00 07/18/17 13:00 Nystatin (Mycostatin Liq) 5 ml QID SWISH-SWAL 07/09/17 13:00 07/18/17 13:07 Nystatin (Mycostatin Oint) 1 applic Q8HR TOPICAL 07/09/17 15:15 07/18/17 14:00 Miconazole Nitrate (Micatin 2% Cream) 1 applic Q12HR TOPICAL 07/09/17 21:00 07/18/17 09:00 Imatinib Mesylate (Gleevec) 400 mg HS PO 07/11/17 21:00 Future hold 07/17/17 21:19 Lactobacillus Acidophilus (Lactinex) 1 tab TID PO 07/11/17 18:00 07/18/17 13:07 Levofloxacin/ Dextrose 150 ml @ 100 mls/hr Q48H IV 07/13/17 23:00 07/18/17 22:59 07/17/17 23:24 Lidocaine HCl (Xylocaine 2% Viscous) 15 ml Q4H PRN SWISH-SPIT prior to taking meds 07/12/17 10:15 07/15/17 08:26 Pantoprazole Sodium (Protonix) 40 mg Q12HR PO 07/12/17 21:00 07/18/17 10:11 Prednisone (Deltasone) 10 mg DAILY PO 07/17/17 09:00 07/18/17 10:11 Objective Remarks GENERAL: Well-nourished, well-developed patient. SKIN: Warm and dry. HEAD: Normocephalic. EYES: No scleral icterus. No injection or drainage. NECK: Supple, trachea midline. No JVD or lymphadenopathy. LYMPHATIC: No adenopathy. CARDIOVASCULAR: Regular rate and rhythm without murmurs. RESPIRATORY: Breath sounds equal bilaterally. No accessory muscle use. GASTROINTESTINAL: Abdomen soft, non-tender, nondistended. EXTREMITIES: No cyanosis, or edema. MUSCULOSKELETAL: Adequate muscle tone. NEUROLOGICAL: No obvious focal deficit. Awake, alert, and oriented x3. PSYCHIATRIC: Appropriate mood and affect; insight and judgment normal. 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 Monitor periodic CBC. -- Was originally diagnosed in 1998 -- Gleevec resumed on 07/11/17 as platelets greater than 100k. (2) Pneumonia ICD Codes: J18.9 - Pneumonia, unspecified organism Status: Acute Plan: --on Levaquin (3) Candidiasis of mouth and esophagus ICD Codes: B37.81 - Candidal esophagitis; B37.0 - Candidal stomatitis Status: Acute Plan: --on oral Nystatin + diflucan (4) GI bleed ICD Codes: K92.2 - Gastrointestinal hemorrhage, unspecified Status: Acute Plan: --GI signed off on 07/15 --had incomplete colonoscopy on 07/14 which showed hemorrhoids. --Bleeding scan,07/10--> no active GI bleeding. Assessment 82 y/o male with history of CML. hematology consulted for pancytopenia Attending Statement d/w pt need for EGD for dysphagia. He decline. plat are back to [place]. Continue gleevec. Problem Qualifiers (1) Pneumonia: Fabrice Patel MD Jul 18, 2017 17:27
[2017-07-18] MEDS ORDERED: HEPARIN-D5W 25,000 U/250 ML 250 ML IV PRN (17:30)
[2017-07-18] MEDS: BACITRACIN TOP OINT 15 GM TUBE TOPICAL SCH ×2 (18:06→22:27)
[2017-07-18] MEDS: BISACODYL EC 5 MG TABEC PO SCH (22:26)
[2017-07-18] MEDS: IMATINIB MESYLATE 100 MG TAB PO SCH (22:56)
[2017-07-18 23:14] LABS: MEAN CELL VOLUME 96.2 FL (80.0-100.0); MEAN CORPUSCULAR HEMOGLOBIN 31.8 PG (27.0-34.0); MEAN CORPUSCULAR HGB CONC 33.1 % (32.0-36.0); PLATELET COUNT 102 TH/MM3 (150-450); RED BLOOD COUNT 2.05 MIL/MM3 (4.50-5.90); RED CELL DISTRIBUTION WIDTH 18.7 % (11.6-17.2); WHITE BLOOD COUNT 4.9 TH/MM3 (4.0-11.0)
[2017-07-18 23:26] LABS: HEMATOCRIT 19.7 % (39.0-51.0); HEMOGLOBIN 6.5 GM/DL (13.0-17.0)
[2017-07-18 23:27] LABS: INTERNATIONAL NORMALIZED RATIO 1.1 RATIO; PROTHROMBIN TIME - PATIENT 11.2 SEC (9.8-11.6)
[2017-07-19] VITALS (11 sets, daily range): BP systolic 94–125; BP diastolic 42–77; PULSE 61–99; RESP 17–20; TEMP 97.7–100.4; O2SAT 91–100
[2017-07-19 00:07] LABS: CALCIUM 7.2 MG/DL (8.5-10.1); CREATININE 1.61 MG/DL (0.60-1.30)
[2017-07-19 00:19] LABS: CALCIUM-PROTEIN CORRECTED 8.8 MG/DL (8.5-10.1); TOTAL PROTEIN 4.3 GM/DL (6.4-8.2)
--- NOTE | 2017-07-19 03:32 | PD.PROCEDR ---
Procedure Note Procedure Centerline placement A time-out was completed verifying correct patient, procedure, site, positioning , and special equipment if applicable. The patient was placed in a dependent position appropriate for central line placement based on the vein to be cannulated. The patients right neck was prepped and draped in sterile fashion. 1% Lidocaine was used to anesthetize the surrounding skin area. A triple lumen 9 -Turkish Cordis catheter was introduced into the the internal jugular vein using the Seldinger technique and under ultrasound guidance. The catheter was threaded smoothly over the guide wire and appropriate blood return was obtained. Each lumen of the catheter was evacuated of air and flushed with sterile saline. The catheter was then sutured in place to the skin and a sterile dressing applied. Perfusion to the extremity distal to the point of catheter insertion was checked and found to be adequate. Estimated Blood Loss: 1ml The patient tolerated the procedure well and there were no complications. Rasta Corado MD Jul 19, 2017 03:32
[2017-07-19] MEDS: CHLORHEXIDINE GLUCONATE 2 % 1 PACK (2 CLOTHS) TOP SCH (03:55)
--- NOTE | 2017-07-19 04:06 | RADRPT ---
EXAM DATE/TIME: 07/19/2017 03:32 [facility] COMPARISON: CHEST SINGLE AP, July 13, 2017, 4:40. INDICATIONS : Right sided central line placement. MEDICAL HISTORY : Leukemia. Congestive heart failure. Myocardial infarction. SURGICAL HISTORY : Pacemaker. ENCOUNTER: Subsequent ACUITY: 2 weeks PAIN SCORE: 0/10 LOCATION: Right chest FINDINGS: Right subclavian central venous catheter is noted distal tip overlies the SVC. No evidence of pneumot horax. Single lead pacer/ICD device from a left subclavian transvenous approach noted. There is cardi omegaly and patchy left lower lobe airspace disease. CONCLUSION: Left basilar airspace disease suspected. Central venous catheter placement as above. Braulio Sellers MD on July 19, 2017 at 4:04 Board Certified Radiologist. This report was verified electronically.
[2017-07-19] MEDS: NYSTATIN 100,000 U/GM OINT 15 GM TUBE TOPICAL SCH ×3 (05:18→22:36)
[2017-07-19] MEDS: INSULIN NovoLIN REGULAR SUPPLEMENTAL SCALE SQ SCH ×4 (08:00→21:00)
[2017-07-19 08:02] LABS: AUTOMATED NEUTROPHIL # 3.2 TH/MM3 (1.8-7.7); BASOPHIL % 0.7 % (0.0-2.0); EOSINOPHIL % 0.3 % (0.0-4.0); LYMPH % 23.1 % (9.0-44.0); MEAN CELL VOLUME 95.3 FL (80.0-100.0); MEAN CORPUSCULAR HEMOGLOBIN 31.5 PG (27.0-34.0); MEAN PLATELET VOLUME 8.2 FL (7.0-11.0); MONO % 3.3 % (0.0-8.0); MONOCYTE # 0.1 TH/MM3 (0-0.9); NEUT % 72.6 % (16.0-70.0); PLATELET COUNT 101 TH/MM3 (150-450); RED BLOOD COUNT 2.06 MIL/MM3 (4.50-5.90); RED CELL DISTRIBUTION WIDTH 18.7 % (11.6-17.2); WHITE BLOOD COUNT 4.4 TH/MM3 (4.0-11.0)
[2017-07-19 08:12] LABS: HEMATOCRIT 19.6 % (39.0-51.0); HEMOGLOBIN 6.5 GM/DL (13.0-17.0)
[2017-07-19] MEDS: DOCUSATE SODIUM 50 MG/SENNA 8.6 MG TAB PO SCH ×2 (08:23→21:00)
[2017-07-19] MEDS: SUCRALFATE 1 GM/10 ML CUP PO SCH ×4 (08:23→21:00)
[2017-07-19] MEDS: PANTOPRAZOLE SOD 40 MG DELAYED RELEASE TAB PO SCH ×2 (08:23→21:00)
[2017-07-19] MEDS: LACTOBACILLUS ACIDOPHILUS TAB PO SCH ×3 (08:23→17:18)
[2017-07-19] MEDS: predniSONE 10 MG TAB PO SCH (08:23)
[2017-07-19] MEDS: SODIUM CHLORIDE 0.9% FLUSH 10 ML FLUSH IV FLUSH SCH ×3 (08:23→22:29)
[2017-07-19] MEDS: AMIODARONE 200 MG TAB PO SCH (08:23)
[2017-07-19] MEDS: NYSTATIN SUSP 500,000 U/5 ML CUP SWISH-SWAL SCH ×4 (08:23→21:00)
[2017-07-19] MEDS: MICONAZOLE NITRATE 2% CREAM 15 GM TOPICAL SCH ×2 (08:24→22:35)
[2017-07-19] MEDS: METHADONE HCL 10 MG/10 ML ORAL SOLUTION PO SCH ×2 (08:24→21:00)
[2017-07-19] MEDS: BACITRACIN TOP OINT 15 GM TUBE TOPICAL SCH ×2 (08:24→22:36)
[2017-07-19] MEDS: NYSTAT/DIPHENHY/LIDO MOUTHWASH (Adult) 120ML SWISH-SWAL SCH ×4 (08:24→21:00)
[2017-07-19] MEDS: SENNOSIDES SYRUP 8.8 MG/5 ML CUP PO SCH (08:24)
[2017-07-19 08:36] LABS: BICARBONATE 31.5 MEQ/L (21.0-32.0); CREATININE 1.52 MG/DL (0.60-1.30)
[2017-07-19 09:00] LABS: CALCIUM-PROTEIN CORRECTED 8.5 MG/DL (8.5-10.1); TOTAL PROTEIN 4.3 GM/DL (6.4-8.2)
--- NOTE | 2017-07-19 09:43 | HHI.PR ---
Subjective Remarks He is in bed he is very weak. Some shortness of breath, no fever or chills. He is not coughing at this time. Appetite is better able to eat and keep down food. No nausea vomiting diarrhea or constipation. Objective Vitals Vital Signs Date Time Temp Pulse Resp B/P (MAP) Pulse Ox O2 Delivery O2 Flow Rate FiO2 07/19/17 08:35 97 Nasal Cannula 3.00 07/19/17 08:04 100.4 94 18 96/42 (60) 97 07/19/17 05:18 98.7 87 17 125/68 (87) 91 07/18/17 22:16 99 Nasal Cannula 3.00 07/18/17 20:00 90 07/18/17 16:57 98.7 91 20 104/56 (72) 99 07/18/17 13:13 98.8 93 18 95/58 (70) 99 I/O 07/18/17 07/18/17 07/18/17 07/19/17 07/19/17 07/19/17 07:00 15:00 23:00 07:00 15:00 23:00 Intake Total 1080 ml Output Total 500 ml Balance 580 ml Intake Oral 360 ml IV Total 720 ml Output Urine Total 500 ml Result Diagram: 07/19/17 0745 07/19/17 0745 Imaging Last Impressions Chest X-Ray 07/19/17 0000 Signed Impressions: Service Date/Time: Wednesday, July 19, 2017 03:32 - CONCLUSION: Left basilar airspace disease suspected. Central venous catheter placement as above. Braulio Sellers MD Upper Extremity Ultrasound 07/18/17 0000 Signed Impressions: Service Date/Time: Tuesday, July 18, 2017 13:24 - CONCLUSION: 1. Occlusive thrombus within the proximal and mid aspect of the left cephalic vein. 2. The remaining veins of both upper extremities are patent. Alli Cohen MD GI Bleed Scan Nuclear Medicine 07/10/17 0000 Signed Impressions: Service Date/Time: June 16:42 - CONCLUSION: No active gastrointestinal bleeding Alli Teague MD Abdomen X-Ray 07/08/17 0600 Signed Impressions: Service Date/Time: Saturday, July 08, 2017 04:09 - CONCLUSION: Negative KUB. Alli Schroeder MD Abdomen/Pelvis CT 07/05/17 0000 Signed Impressions: Service Date/Time: Wednesday, July 05, 2017 15:06 - CONCLUSION: 1. Left lower lobe consolidation. 2. Dilated loops of proximal and mid small bowel. 3. Stable distal abdominal aortic aneurysm. 4. Stable sigmoid diverticulosis without evidence of diverticulitis. David Gutierrez MD Hepatobiliary Scan Nuclear Medicine 06/25/17 0000 Signed Impressions: Service Date/Time: Sunday, June 25, 2017 10:43 - CONCLUSION: 1. No evidence for cystic duct obstruction. 2. Biliary enteric reflux. Braulio Sellers MD Objective Remarks GENERAL: Well-nourished, well-developed pleasant elderly obese male patient. SKIN: Warm and dry. Multiple tattoos on extremities. behnd ears small skin breakdown form O2 use. HEAD: Normocephalic. EYES: No scleral icterus. No injection or drainage. NECK: Supple, trachea midline. No JVD or lymphadenopathy. CARDIOVASCULAR: Regular rate and rhythm without murmurs, gallops, or rubs. RESPIRATORY: Breath sounds equal bilaterally. No accessory muscle use. CTAB. GASTROINTESTINAL: Abdomen soft, non-tender, nondistended. EXTREMITIES: No peripheral edema. NEUROLOGICAL: Awake, alert, and oriented x 3. Non-focal. Procedures Echo 06/26/2017 Mildly dilated left ventricle. The left ventricular systolic function is mildly reduced with an estimated ejection fraction in the range of 45- 50%. Wall thickness is normal. A pacemaker wire is noted. There is a pacemaker wire present in the right atrial cavity. [id number] mitral valve regurgitation. There is trace tricuspid valve regurgitation. A/P Problem List: (1) Diverticulosis ICD Code: K57.90 - Diverticulosis of intestine, part unspecified, without perforation or abscess without bleeding (2) ALEJANDRA (obstructive sleep apnea) ICD Code: G47.33 - Obstructive sleep apnea (adult) (pediatric) Status: Chronic (3) Acute respiratory failure ICD Code: J96.00 - Acute respiratory failure, unspecified whether with hypoxia or hypercapnia (4) Acute kidney injury ICD Code: N17.9 - Acute kidney failure, unspecified Status: Acute (5) Thrombocytopenia ICD Code: D69.6 - Thrombocytopenia, unspecified Status: Acute (6) Macrocytic anemia ICD Code: D53.9 - Nutritional anemia, unspecified Status: Chronic (7) Diabetes mellitus ICD Code: E11.9 - Type 2 diabetes mellitus without complications (8) Chronic systolic heart failure ICD Code: I50.22 - Chronic systolic (congestive) heart failure Status: Chronic (9) Sepsis ICD Code: A41.9 - Sepsis, unspecified organism Status: Acute (10) GI bleed ICD Code: K92.2 - Gastrointestinal hemorrhage, unspecified Status: Acute (11) Bacteremia due to Klebsiella pneumoniae ICD Code: R78.81 - Bacteremia Status: Acute (12) Ileus ICD Code: K56.7 - Ileus, unspecified Status: Resolved (13) Candidiasis of mouth and esophagus ICD Code: B37.81 - Candidal esophagitis; B37.0 - Candidal stomatitis Status: Acute (14) Pneumonia ICD Code: J18.9 - Pneumonia, unspecified organism Status: Acute (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, BCR/ABL-positive, not having achieved remission Status: Chronic (16) Pancytopenia ICD Code: D61.818 - Other pancytopenia Status: Chronic (17) COPD (chronic obstructive pulmonary disease) ICD Code: J44.9 - Chronic obstructive pulmonary disease, unspecified Status: Chronic (18) Acute renal failure ICD Code: N17.9 - Acute kidney failure, unspecified Status: Acute (19) Iron deficiency anemia ICD Code: D50.9 - Iron deficiency anemia, unspecified Status: Acute (20) AICD (automatic cardioverter/defibrillator) present ICD Code: Z95.810 - Presence of automatic (implantable) cardiac defibrillator Status: Acute (21) Anemia associated with acute blood loss ICD Code: D62 - Acute posthemorrhagic anemia Status: Acute (22) Cardiomyopathy ICD Code: I42.9 - Cardiomyopathy, unspecified Status: Chronic (23) Left bundle branch block ICD Code: I44.7 - Left bundle-branch block, unspecified Status: Chronic (24) Paroxysmal ventricular tachycardia ICD Code: I47.2 - Ventricular tachycardia Status: Resolved Assessment and Plan 82-year-old male who was admitted on 06/24/2017 due to abdominal pain. He complained of right upper and lower quadrant abdominal pain radiating to his back. Patient was found to be hypotensive and received 4 L of normal saline. Lactate was essentially normal. CT abdomen pelvis showed diverticulosis, edematous gallbladder with some stones. Patient received vancomycin and Zosyn in the emergency department. He was managed in the ICU and required Levophed for hypotension. He had acute kidney injury as well which improved gradually. Sepsis, hypotension - resolved. blood cultures 07/06 were positive for Klebsiella pneumoniae, also has a left lower lobe lung consolidation. blood culture 07/08 with staph epidermidis likely contaminant. On antibiotics levaquin per ID/levaquin. Abdominal pain, Ileus - resolve s/p NG tube. Cont. Lactulose, Senna, Pericolace, Dulcolax supp Hospital-acquired pneumonia - stable on 2 L nasal cannula Previous chest x-rays and CT abdomen pelvis did not identify any lung infiltrates. However, abd CT 07/05 did show LLL consolidation. Infectious disease following, patient was on Zosyn now transitioned to Levaquin, last dose today. Repeat cxr 07/13 showed left lower lobe infiltrate. COPD - followed by Dr. Escamilla as outpatient. on prednisone taper. Duo nebs as needed. Chronic pain - cont methadone 2.5 mg twice a day and morphine 2 mg IV every 3 hours when necessary. Oral thrush, and odynophagia sucralfate was ordered by oncology team. on nystatin and magic mouth wash. Status post course of Diflucan per ID. lidocaine swish and spit prior to taking by mouth meds. GI input appreciated. S/p EGD 07/13 showing mild gastritis in the antrum and distal esophagitis - biopsies were negative for CMV/HSV, did show acute and chronic esophagitis, negative for H. pylori Do swallow evaluation. ST consulted Hematochezia bleeding scan 07/10 negative. H&H declined 6.5. Transfuse 2 units of blood. Give Lasix in between units. EGD 07/13 - mild esophagitis, gastritis cont protonix, monitor H&H Status post colonoscopy on 07/14 showing incomplete prep and internal and external hemorrhoids, patient refused repeat colonoscopy GI has signed off Pancytopenia, CML Heme/onc following. Gleevec resumed 07/11 - held yesterday for slightly low platelets which are normal today No anti-coagulation due to pancytopenia. HIT negative. Follow CBC Acute kidney injury, Chronic kidney disease possibly stage 3-4 Creatinine is much improved. Nephrology is following. s/p diuresis. Holding lasix due to hypernatremia -received gentle IV fluids NSat 60 cc/h overnight, stopped as patien twith UE edema. Monitor BMP in the morning. BMP shows improved creatinine today, BL upper extremity edema. Do Doppler US to r/o DVT./ Stop IVF Hypernatremia improving after holding lasix and on gentle IV fluids and S at 60 and miles per hour. ff repeat BMP. I will give gentle IV fluids overnight. Chronic systolic congestive heart failure Echo from this admission shows ejection fraction 45-50% monitor for any fluid overload, monitor I/O. start PO lasix when sodium improved. Buttock and leg wounds: wound care following and has made recs, appreciate assistance History of ventricular tachycardia status post AICD. Continue amiodarone. Low grade fever 1. Monitor temps. He has loose stools likely secondary to being on liquid diet will advance to heart healthy. He had a negative C. difficile one week ago. DVT px - SCDs. No anti-coagulation due to thrombocytopenia, hematology recommendations. PT/OT following DO NOT RESUSCITATE status Discharge Planning Will require SNF when stable for DC anticipate in 1-2 days if afebrile and sodium improved. Patient with low hemoglobin and transfusing blood not ready for discharge Problem Qualifiers (1) Diverticulosis: (2) Acute respiratory failure: Qualified Codes: J96.02 - Acute respiratory failure with hypercapnia (3) Diabetes mellitus: Qualified Codes: E11.8 - Type 2 diabetes mellitus with unspecified complications (4) Pneumonia: Deepika Ortega MD Jul 19, 2017 09:43
[2017-07-19] MEDS: ACETAMINOPHEN 325 MG TAB PO PRN ×2 (10:07→13:57)
[2017-07-19] MEDS: diphenhydrAMINE HCL 25 MG CAP PO PRN ×2 (10:08→13:57)
[2017-07-19] MEDS ORDERED: FUROSEMIDE 20 MG/2 ML VIAL IV PUSH SCH ×2 (10:45→11:15)
--- NOTE | 2017-07-19 11:08 | PD.ONC.PN ---
Subjective Subjective Remarks Tmax 100.4 overnight. Patient tired of being in the hospital. Wants to go home. Had central line placement last night. Objective Data Date Time Temp Pulse Resp B/P (MAP) Pulse Ox O2 Delivery O2 Flow Rate FiO2 07/19/17 10:52 99.4 94 18 94/47 99 07/19/17 08:35 97 Nasal Cannula 3.00 07/19/17 08:04 100.4 94 18 96/42 (60) 97 07/19/17 05:18 98.7 87 17 125/68 (87) 91 07/18/17 22:16 99 Nasal Cannula 3.00 07/18/17 20:00 90 07/18/17 16:57 98.7 91 20 104/56 (72) 99 07/18/17 13:13 98.8 93 18 95/58 (70) 99 Result Diagram: 07/19/17 0745 07/19/17 0745 Laboratory Results Laboratory Tests Test 07/18/17 22:16 07/19/17 07:45 White Blood Count 4.9 TH/MM3 4.4 TH/MM3 Red Blood Count 2.05 MIL/MM3 2.06 MIL/MM3 Hemoglobin 6.5 GM/DL 6.5 GM/DL Hematocrit 19.7 % 19.6 % Mean Corpuscular Volume 96.2 FL 95.3 FL Mean Corpuscular Hemoglobin 31.8 PG 31.5 PG Mean Corpuscular Hemoglobin Concent 33.1 % 33.0 % Red Cell Distribution Width 18.7 % 18.7 % Platelet Count 102 TH/MM3 101 TH/MM3 Mean Platelet Volume 9.0 FL 8.2 FL Prothrombin Time 11.2 SEC Prothromb Time International Ratio 1.1 RATIO Activated Partial Thromboplast Time 26.6 SEC Blood Urea Nitrogen 26 MG/DL 24 MG/DL Creatinine 1.61 MG/DL 1.52 MG/DL Random Glucose 194 MG/DL 85 MG/DL Total Protein 4.3 GM/DL 4.3 GM/DL Calcium Level 7.2 MG/DL 7.0 MG/DL Sodium Level 144 MEQ/L 146 MEQ/L Potassium Level 4.2 MEQ/L 3.8 MEQ/L Chloride Level 108 MEQ/L 109 MEQ/L Carbon Dioxide Level 32.0 MEQ/L 31.5 MEQ/L Anion Gap 4 MEQ/L 6 MEQ/L Estimat Glomerular Filtration Rate 41 ML/MIN 44 ML/MIN Protein Corrected Calcium 8.8 MG/DL 8.5 MG/DL Neutrophils (%) (Auto) 72.6 % Lymphocytes (%) (Auto) 23.1 % Monocytes (%) (Auto) 3.3 % Eosinophils (%) (Auto) 0.3 % Basophils (%) (Auto) 0.7 % Neutrophils # (Auto) 3.2 TH/MM3 Lymphocytes # (Auto) 1.0 TH/MM3 Monocytes # (Auto) 0.1 TH/MM3 Eosinophils # (Auto) 0.0 TH/MM3 Basophils # (Auto) 0.0 TH/MM3 CBC Comment AUTO DIFF Differential Comment AUTO DIFF CONFIRMED Imaging Studies Last 24 hours Impressions Chest X-Ray 07/19/17 0000 Signed Impressions: Service Date/Time: Wednesday, July 19, 2017 03:32 - CONCLUSION: Left basilar airspace disease suspected. Central venous catheter placement as above. Braulio Sellers MD Administered Medications Medications (Trade) Dose Ordered Sig/Sunil Route PRN Reason Start Time Stop Time Status Last Admin Dose Admin Sodium Chloride (NS Flush) 2 ml UNSCH PRN IV FLUSH FLUSH AFTER USING IV ACCESS 06/24/17 20:30 07/12/17 10:40 Sodium Chloride (NS Flush) 2 ml BID IV FLUSH 06/24/17 21:00 07/19/17 08:23 Ondansetron HCl (Zofran Inj) 4 mg Q6H PRN IV PUSH NAUSEA OR VOMITING 06/24/17 20:30 07/03/17 17:30 Chlorhexidine Gluconate (Chlorhexidine 2% Cloth) Taper DAILY@04 TOP 06/25/17 04:00 06/21/18 03:59 07/01/17 04:00 Senna/Docusate Sodium (Olesya-Colace) 1 tab BID PO 06/24/17 21:00 07/19/17 08:23 Bisacodyl (Dulcolax Supp) 10 mg DAILY PRN RECTAL SEVERE CONSITIPATION 06/24/17 20:30 06/28/17 08:31 Amiodarone HCl (Cordarone) 200 mg DAILY PO 06/25/17 09:00 07/19/17 08:23 Methadone HCl (Methadone Liq) 2.5 mg BID PO 06/24/17 21:00 07/18/17 10:12 Dextrose (D50w (Vial) Inj) 50 ml UNSCH PRN IV PUSH HYPOGLYCEMIA-SEE COMMENTS 06/24/17 20:30 06/24/17 21:15 Sodium Chloride (NS Flush) DAILY IV FLUSH 06/25/17 09:00 07/19/17 08:24 Sodium Chloride (NS Flush) UNSCH PRN IV FLUSH SEE PROTOCOL 06/24/17 21:30 07/15/17 20:38 Morphine Sulfate (Morphine Inj) 2 mg Q3H PRN IV PUSH pain 1-5 06/24/17 23:15 07/12/17 18:23 Morphine Sulfate (Morphine Inj) 4 mg Q3H PRN IV PUSH pain 6-10 06/24/17 23:15 07/06/17 02:26 Bisacodyl (Dulcolax Ec) 10 mg HS PO 06/26/17 21:00 07/05/17 21:13 Sennosides (Senna Liq) 8.8 mg DAILY PO 06/28/17 09:00 07/16/17 09:18 Albuterol/ Ipratropium (Duoneb Neb) 1 ampule Q2HR NEB PRN NEB SHORTNESS OF BREATH 06/29/17 08:30 07/13/17 20:43 Insulin Human Regular (NovoLIN R SUPPLEMENTAL SCALE) 1 ACHS SQ 07/02/17 12:00 07/18/17 22:50 Albuterol/ Ipratropium (Duoneb Neb) 1 ampule Q4HR NEB PRN INH SHORTNESS OF BREATH 07/05/17 17:00 07/06/17 20:26 Sucralfate (Carafate Liq) 1 gm ACHS PO 07/09/17 08:00 07/19/17 08:23 Multi-Ingredient Mouthwash/Gargle (Magic Mouthwash Adult Liq) 5 ml QID SWISH-SWAL 07/09/17 09:00 07/19/17 08:24 Nystatin (Mycostatin Liq) 5 ml QID SWISH-SWAL 07/09/17 13:00 07/19/17 08:23 Nystatin (Mycostatin Oint) 1 applic Q8HR TOPICAL 07/09/17 15:15 07/19/17 05:18 Miconazole Nitrate (Micatin 2% Cream) 1 applic Q12HR TOPICAL 07/09/17 21:00 07/19/17 08:24 Imatinib Mesylate (Gleevec) 400 mg HS PO 07/11/17 21:00 Future hold 07/18/17 22:56 Lactobacillus Acidophilus (Lactinex) 1 tab TID PO 07/11/17 18:00 07/19/17 08:23 Lidocaine HCl (Xylocaine 2% Viscous) 15 ml Q4H PRN SWISH-SPIT prior to taking meds 07/12/17 10:15 07/15/17 08:26 Pantoprazole Sodium (Protonix) 40 mg Q12HR PO 07/12/17 21:00 07/19/17 08:23 Prednisone (Deltasone) 10 mg DAILY PO 07/17/17 09:00 07/19/17 08:23 Bacitracin (Baciguent Oint) 1 applic Q12HR TOPICAL 07/18/17 11:30 07/19/17 08:24 Acetaminophen (Tylenol) 650 mg Q4H PRN PO SEE LABEL COMMENTS 07/19/17 08:00 07/19/17 10:07 Diphenhydramine HCl (Benadryl) 25 mg Q4H PRN PO SEE LABEL COMMENTS 07/19/17 08:00 07/19/17 10:08 Objective Remarks GENERAL: Elderly [facility]. SKIN: Warm and dry. HEAD: Normocephalic. EYES: No injection or drainage. NECK: Supple, trachea midline. CARDIOVASCULAR: +S1/S2 RESPIRATORY: anterior yates with occasional rhonchi GASTROINTESTINAL: Abdomen soft, non-tender, nondistended. EXTREMITIES: No cyanosis NEUROLOGICAL: awake and alert, normal speech. moving all extremities. Assessment/Plan Problem List: (1) Anemia ICD Codes: D64.9 - Anemia, unspecified Plan: 07/19/17: give 2 units pRBC. 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 (3) GI bleed ICD Codes: K92.2 - Gastrointestinal hemorrhage, unspecified Status: Acute Plan: --GI signed off on 07/15 --had incomplete colonoscopy on 07/14 which showed hemorrhoids. --Bleeding scan,07/10--> no active GI bleeding. (4) Dysphagia ICD Codes: R13.10 - Dysphagia, unspecified Plan: --on oral Nystatin + diflucan --has declined EGD --?HSV Assessment 82 y/o male with history of CML. hematology consulted for pancytopenia Attending Statement The exam, history, and the medical decision-making described in the above note were completed with the assistance of the mid-level provider. I reviewed and agree with the findings presented. I attest that I had a [id number] encounter with the patient on the same day, and personally performed and documented my assessment and findings in the medical record. still has dysphagia. s/p EGD = esophageal ulceration. Path negative for fungal and viral infection. Reconsult GI for any other recommendations. d/w and pt. d/w RN. Mira Zepeda Jul 19, 2017 11:08 Fabrice Patel MD Jul 19, 2017 17:51
[2017-07-19] MEDS ORDERED: SODIUM CHLOR 0.9% 250 ML INJ 250 ML IV ONE (11:15)
--- NOTE | 2017-07-19 12:27 | HHI.NPPN ---
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 I was called to see the patient because of elevated BUN and creatinine. Additional Remarks Patient is alert, feeling better, no SOB. Objective Data Data Vital Signs Date Time Temp Pulse Resp B/P (MAP) Pulse Ox O2 Delivery O2 Flow Rate FiO2 07/19/17 11:19 98.5 93 18 95/47 100 07/19/17 10:52 99.4 94 18 94/47 99 07/19/17 08:35 97 Nasal Cannula 3.00 07/19/17 08:04 100.4 94 18 96/42 (60) 97 07/19/17 05:18 98.7 87 17 125/68 (87) 91 07/18/17 22:16 99 Nasal Cannula 3.00 07/18/17 20:00 90 07/18/17 16:57 98.7 91 20 104/56 (72) 99 07/18/17 13:13 98.8 93 18 95/58 (70) 99 -: 07/19/17 0745 07/19/17 0745 Physical Exam General Appearance: No Acute Distress, Comfortable Eyes Eye Exam: Pupils Equal Throat Throat Exam: Oral Mucosa [place] & Moist Neck Neck Exam: Neck Supple Pulmonary Resp Exam: Breath Sounds Equal, No Distress, Rhonchi, Sputum, Decreased Bases Cardiology CV Exam: Regular, Normal Sinus Rhythm Gastrointestinal/Abdomen GI Exam: Soft, Non-Tender, Bowel Sounds Present Extremeties Extremities Exam: Moderate Edema, Pitting Edema, Dependent Edema Neurologic Neuro Exam: Alert, Awake, Oriented Psychiatric Psych Exam: Appropriate Responses Assessment/Plan Assessment Summary: LEESA/Acute Renal Failure, Hypertension, CKD Stage IV Problem List: (1) COPD (chronic obstructive pulmonary disease) ICD Codes: J44.9 - Chronic obstructive pulmonary disease, unspecified Status: Chronic (2) Bronchitis ICD Codes: J40 - Bronchitis, not specified as acute or chronic Status: Acute (3) HTN (hypertension) ICD Codes: I10 - Essential (primary) hypertension Status: Chronic (4) Diabetes mellitus ICD Codes: E11.9 - Type 2 diabetes mellitus without complications (5) Acute respiratory failure ICD Codes: J96.00 - Acute respiratory failure, unspecified whether with hypoxia or hypercapnia (6) Severe sepsis ICD Codes: A41.9 - Sepsis, unspecified organism; R65.20 - Severe sepsis without septic shock Status: Acute (7) Acute kidney injury ICD Codes: N17.9 - Acute kidney failure, unspecified Status: Acute Plan Patient has been non oliguric. Has Chronic kidney disease, possibly stage 3- 4. Hb dropped and getting PRBC Hematology following hx of CML and Pancytopenia ID is following. Lasix stopped. Creatinine is stable Problem Qualifiers (1) Diabetes mellitus: Qualified Codes: E11.8 - Type 2 diabetes mellitus with unspecified complications (2) Acute respiratory failure: Qualified Codes: J96.02 - Acute respiratory failure with hypercapnia Basim Salmon MD Jul 19, 2017 12:27
[2017-07-19] MEDS: BISACODYL EC 5 MG TABEC PO SCH (21:00)
[2017-07-19] MEDS: IMATINIB MESYLATE 100 MG TAB PO SCH (21:00)
[2017-07-19] MEDS: SODIUM CHLORIDE 0.9% FLUSH 10 ML FLUSH IV FLUSH PRN (22:29)
[2017-07-20] VITALS (10 sets, daily range): BP systolic 93–165; BP diastolic 50–77; PULSE 62–105; RESP 16–19; TEMP 97.7–99.9; O2SAT 93–98
[2017-07-20] MEDS: CHLORHEXIDINE GLUCONATE 2 % 1 PACK (2 CLOTHS) TOP SCH ×2 (04:00→20:39)
[2017-07-20] MEDS: NYSTATIN 100,000 U/GM OINT 15 GM TUBE TOPICAL SCH ×3 (05:47→20:38)
[2017-07-20 06:41] LABS: BICARBONATE 30.6 MEQ/L (21.0-32.0); CALCIUM 7.4 MG/DL (8.5-10.1); CREATININE 1.39 MG/DL (0.60-1.30)
[2017-07-20 07:07] LABS: CALCIUM-PROTEIN CORRECTED 8.7 MG/DL (8.5-10.1); TOTAL PROTEIN 4.8 GM/DL (6.4-8.2)
[2017-07-20] MEDS: SUCRALFATE 1 GM/10 ML CUP PO SCH ×4 (08:00→20:37)
[2017-07-20] MEDS: INSULIN NovoLIN REGULAR SUPPLEMENTAL SCALE SQ SCH ×4 (08:00→20:19)
[2017-07-20] MEDS: SENNOSIDES SYRUP 8.8 MG/5 ML CUP PO SCH (08:48)
[2017-07-20] MEDS: MICONAZOLE NITRATE 2% CREAM 15 GM TOPICAL SCH ×2 (08:52→20:38)
[2017-07-20] MEDS: BACITRACIN TOP OINT 15 GM TUBE TOPICAL SCH ×2 (08:52→20:39)
[2017-07-20] MEDS: SODIUM CHLORIDE 0.9% FLUSH 10 ML FLUSH IV FLUSH SCH ×3 (08:52→20:36)
[2017-07-20] MEDS: DOCUSATE SODIUM 50 MG/SENNA 8.6 MG TAB PO SCH ×2 (08:53→20:37)
[2017-07-20] MEDS: predniSONE 10 MG TAB PO SCH (08:53)
[2017-07-20] MEDS: NYSTATIN SUSP 500,000 U/5 ML CUP SWISH-SWAL SCH ×4 (08:53→20:35)
[2017-07-20] MEDS: AMIODARONE 200 MG TAB PO SCH (08:53)
[2017-07-20] MEDS: NYSTAT/DIPHENHY/LIDO MOUTHWASH (Adult) 120ML SWISH-SWAL SCH ×4 (08:53→20:37)
[2017-07-20] MEDS: PANTOPRAZOLE SOD 40 MG DELAYED RELEASE TAB PO SCH ×2 (08:53→20:37)
[2017-07-20] MEDS: METHADONE HCL 10 MG/10 ML ORAL SOLUTION PO SCH ×2 (08:53→20:37)
[2017-07-20] MEDS: LACTOBACILLUS ACIDOPHILUS TAB PO SCH ×3 (08:53→16:09)
[2017-07-20 09:14] LABS: AUTOMATED NEUTROPHIL # 4.8 TH/MM3 (1.8-7.7); BASOPHIL % 0.4 % (0.0-2.0); EOSINOPHIL % 0.4 % (0.0-4.0); HEMATOCRIT 29.1 % (39.0-51.0); HEMOGLOBIN 10.1 GM/DL (13.0-17.0); LYMPH % 22.5 % (9.0-44.0); LYMPHOCYTE # 1.5 TH/MM3 (1.0-4.8); MEAN CELL VOLUME 89.6 FL (80.0-100.0); MEAN CORPUSCULAR HEMOGLOBIN 31.1 PG (27.0-34.0); MEAN CORPUSCULAR HGB CONC 34.7 % (32.0-36.0); MEAN PLATELET VOLUME 8.8 FL (7.0-11.0); MONOCYTE # 0.2 TH/MM3 (0-0.9); NEUT % 73.7 % (16.0-70.0); PLATELET COUNT 86 TH/MM3 (150-450); RED BLOOD COUNT 3.25 MIL/MM3 (4.50-5.90); RED CELL DISTRIBUTION WIDTH 19.4 % (11.6-17.2); WHITE BLOOD COUNT 6.6 TH/MM3 (4.0-11.0)
--- NOTE | 2017-07-20 09:52 | HHI.PR ---
Subjective Remarks With severe dysphagia refusing pills. Drinking water without problems. Says all of the food is getting stuck in his throat . GI reconsulted for evaluation. No fever or chills no nausea vomiting diarrhea or constipation. He feels very tired. Objective Vitals Vital Signs Date Time Temp Pulse Resp B/P (MAP) Pulse Ox O2 Delivery O2 Flow Rate FiO2 07/20/17 08:59 94 Nasal Cannula 2.00 07/20/17 08:33 98.3 96 18 106/59 (75) 94 07/20/17 05:34 98.1 88 18 165/77 (106) 94 07/20/17 00:15 97.7 62 19 113/54 (73) 94 07/19/17 22:34 97.7 63 20 113/54 (73) 100 07/19/17 21:10 61 07/19/17 21:10 100 Nasal Cannula 2.00 07/19/17 17:58 100 Nasal Cannula 2.00 07/19/17 16:33 98.4 66 18 107/52 100 07/19/17 14:50 97 Nasal Cannula 2.00 07/19/17 14:47 98.4 69 18 112/77 100 07/19/17 13:55 98.4 80 18 102/55 99 07/19/17 13:30 Nasal Cannula 2.00 07/19/17 11:19 98.5 93 18 95/47 100 07/19/17 10:52 99.4 94 18 94/47 99 I/O 07/19/17 07/19/17 07/19/17 07/20/17 07/20/17 07/20/17 07:00 15:00 23:00 07:00 15:00 23:00 Intake Total 400 ml 1370 ml 240 ml Output Total 350 ml 525 ml Balance 400 ml 1020 ml -285 ml Intake Oral 720 ml 240 ml Packed Cells 400 ml 400 ml Blood Product IV Normal Saline Flush 250 ml Output Urine Total 350 ml 525 ml # Voids 1 # Bowel Movements 0 0 Result Diagram: 07/20/17 0845 07/20/17 0540 Imaging Last Impressions Chest X-Ray 07/19/17 0000 Signed Impressions: Service Date/Time: Wednesday, July 19, 2017 03:32 - CONCLUSION: Left basilar airspace disease suspected. Central venous catheter placement as above. Braulio Sellers MD Upper Extremity Ultrasound 07/18/17 0000 Signed Impressions: Service Date/Time: Tuesday, July 18, 2017 13:24 - CONCLUSION: 1. Occlusive thrombus within the proximal and mid aspect of the left cephalic vein. 2. The remaining veins of both upper extremities are patent. Alli Cohen MD GI Bleed Scan Nuclear Medicine 07/10/17 0000 Signed Impressions: Service Date/Time: June 16:42 - CONCLUSION: No active gastrointestinal bleeding Alli Teague MD Abdomen X-Ray 07/08/17 0600 Signed Impressions: Service Date/Time: Saturday, July 08, 2017 04:09 - CONCLUSION: Negative KUB. Alli Schroeder MD Abdomen/Pelvis CT 07/05/17 0000 Signed Impressions: Service Date/Time: Wednesday, July 05, 2017 15:06 - CONCLUSION: 1. Left lower lobe consolidation. 2. Dilated loops of proximal and mid small bowel. 3. Stable distal abdominal aortic aneurysm. 4. Stable sigmoid diverticulosis without evidence of diverticulitis. David Gutierrez MD Hepatobiliary Scan Nuclear Medicine 06/25/17 0000 Signed Impressions: Service Date/Time: Sunday, June 25, 2017 10:43 - CONCLUSION: 1. No evidence for cystic duct obstruction. 2. Biliary enteric reflux. Braulio Sellers MD Objective Remarks GENERAL: Well-nourished, well-developed pleasant elderly obese male patient. SKIN: Warm and dry. Multiple tattoos on extremities. behnd ears small skin breakdown form O2 use. HEAD: Normocephalic. EYES: No scleral icterus. No injection or drainage. NECK: Supple, trachea midline. No JVD or lymphadenopathy. CARDIOVASCULAR: Regular rate and rhythm without murmurs, gallops, or rubs. RESPIRATORY: Breath sounds equal bilaterally. No accessory muscle use. CTAB. GASTROINTESTINAL: Abdomen soft, non-tender, nondistended. EXTREMITIES: No peripheral edema. NEUROLOGICAL: Awake, alert, and oriented x 3. Non-focal. Procedures Echo 06/26/2017 Mildly dilated left ventricle. The left ventricular systolic function is mildly reduced with an estimated ejection fraction in the range of 45- 50%. Wall thickness is normal. A pacemaker wire is noted. There is a pacemaker wire present in the right atrial cavity. [id number] mitral valve regurgitation. There is trace tricuspid valve regurgitation. A/P Problem List: (1) Diverticulosis ICD Code: K57.90 - Diverticulosis of intestine, part unspecified, without perforation or abscess without bleeding (2) ALEJANDRA (obstructive sleep apnea) ICD Code: G47.33 - Obstructive sleep apnea (adult) (pediatric) Status: Chronic (3) Acute respiratory failure ICD Code: J96.00 - Acute respiratory failure, unspecified whether with hypoxia or hypercapnia (4) Acute kidney injury ICD Code: N17.9 - Acute kidney failure, unspecified Status: Acute (5) Thrombocytopenia ICD Code: D69.6 - Thrombocytopenia, unspecified Status: Acute (6) Macrocytic anemia ICD Code: D53.9 - Nutritional anemia, unspecified Status: Chronic (7) Diabetes mellitus ICD Code: E11.9 - Type 2 diabetes mellitus without complications (8) Chronic systolic heart failure ICD Code: I50.22 - Chronic systolic (congestive) heart failure Status: Chronic (9) Sepsis ICD Code: A41.9 - Sepsis, unspecified organism Status: Acute (10) GI bleed ICD Code: K92.2 - Gastrointestinal hemorrhage, unspecified Status: Acute (11) Bacteremia due to Klebsiella pneumoniae ICD Code: R78.81 - Bacteremia Status: Acute (12) Ileus ICD Code: K56.7 - Ileus, unspecified Status: Resolved (13) Candidiasis of mouth and esophagus ICD Code: B37.81 - Candidal esophagitis; B37.0 - Candidal stomatitis Status: Acute (14) Pneumonia ICD Code: J18.9 - Pneumonia, unspecified organism Status: Acute (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, BCR/ABL-positive, not having achieved remission Status: Chronic (16) Pancytopenia ICD Code: D61.818 - Other pancytopenia Status: Chronic (17) COPD (chronic obstructive pulmonary disease) ICD Code: J44.9 - Chronic obstructive pulmonary disease, unspecified Status: Chronic (18) Acute renal failure ICD Code: N17.9 - Acute kidney failure, unspecified Status: Acute (19) Iron deficiency anemia ICD Code: D50.9 - Iron deficiency anemia, unspecified Status: Acute (20) AICD (automatic cardioverter/defibrillator) present ICD Code: Z95.810 - Presence of automatic (implantable) cardiac defibrillator Status: Acute (21) Anemia associated with acute blood loss ICD Code: D62 - Acute posthemorrhagic anemia Status: Acute (22) Cardiomyopathy ICD Code: I42.9 - Cardiomyopathy, unspecified Status: Chronic (23) Left bundle branch block ICD Code: I44.7 - Left bundle-branch block, unspecified Status: Chronic (24) Paroxysmal ventricular tachycardia ICD Code: I47.2 - Ventricular tachycardia Status: Resolved Assessment and Plan 82-year-old male who was admitted on 06/24/2017 due to abdominal pain. He complained of right upper and lower quadrant abdominal pain radiating to his back. Patient was found to be hypotensive and received 4 L of normal saline. Lactate was essentially normal. CT abdomen pelvis showed diverticulosis, edematous gallbladder with some stones. Patient received vancomycin and Zosyn in the emergency department. He was managed in the ICU and required Levophed for hypotension. He had acute kidney injury as well which improved gradually. Sepsis, hypotension - resolved. blood cultures 07/06 were positive for Klebsiella pneumoniae, also has a left lower lobe lung consolidation. blood culture 07/08 with staph epidermidis likely contaminant. On antibiotics levaquin per ID/levaquin. Abdominal pain, Ileus - resolve s/p NG tube. Cont. Lactulose, Senna, Pericolace, Dulcolax supp Hospital-acquired pneumonia - stable on 2 L nasal cannula Previous chest x-rays and CT abdomen pelvis did not identify any lung infiltrates. However, abd CT 07/05 did show LLL consolidation. Infectious disease following, patient was on Zosyn now transitioned to Levaquin, last dose today. Repeat cxr 07/13 showed left lower lobe infiltrate. COPD - followed by Dr. Escamilla as outpatient. On prednisone taper. Duo nebs as needed. Chronic pain - cont methadone 2.5 mg twice a day and morphine 2 mg IV every 3 hours when necessary. Oral thrush, and odynophagia Dysphagia sucralfate was ordered by oncology team. on nystatin and magic mouth wash. Status post course of Diflucan per ID. lidocaine swish and spit prior to taking by mouth meds. GI input appreciated. S/p EGD 07/13 showing mild gastritis in the antrum and distal esophagitis - biopsies were negative for CMV/HSV, did show acute and chronic esophagitis, negative for H. pylori Do swallow evaluation. ST consulted recommends puree diet. Patient still with dysphagia refusing meds. Reconsult GI for evaluation. Hematochezia bleeding scan 07/10 negative. H&H declined 6.12/27. Transfuse 2 units of blood. Give Lasix in between units. EGD 07/13 - mild esophagitis, gastritis cont protonix, monitor H&H Status post colonoscopy on 07/14 showing incomplete prep and internal and external hemorrhoids, patient refused repeat colonoscopy. GI has signed off Patient however with severe dysphagia not able to eat and refusing meds, reconsult GI Pancytopenia, CML Heme/onc following. Gleevec resumed 07/11 - held yesterday for slightly low platelets which are normal today No anti-coagulation due to pancytopenia. HIT negative. Follow CBC Acute kidney injury. Chronic kidney disease possibly stage 3-4 Creatinine is much improved. Nephrology is following. s/p diuresis. Holding lasix due to hypernatremia -received gentle IV fluids NSat 60 cc/h, stopped as patient with UE edema. Monitor BMP in the morning. BMP shows improved creatinine today, BL upper extremity edema. Do Doppler US to r/o DVT, with superficial DVT no anticoagulation. Stop IVF Hypernatremia improving after holding lasix and on gentle IV fluids and S at 60 and miles per hour. ff repeat BMP. I will give gentle IV fluids overnight. Chronic systolic congestive heart failure Echo from this admission shows ejection fraction 45-50% monitor for any fluid overload, monitor I/O. start PO lasix when sodium improved. Buttock and leg wounds: wound care following and has made recs, appreciate assistance History of ventricular tachycardia status post AICD. Continue amiodarone. Low grade fever 1. Monitor temps. He has loose stools likely secondary to being on liquid diet will advance to heart healthy. He had a negative C. difficile one week ago. DVT px - SCDs. No anti-coagulation due to thrombocytopenia, hematology recommendations. PT/OT following DO NOT RESUSCITATE status Discharge Planning Will require SNF when stable for DC With severe dysphagia not able to eat and refusing meds, reconsult GI Problem Qualifiers (1) Diverticulosis: (2) Acute respiratory failure: Qualified Codes: J96.02 - Acute respiratory failure with hypercapnia (3) Diabetes mellitus: Qualified Codes: E11.8 - Type 2 diabetes mellitus with unspecified complications (4) Pneumonia: Deepika Ortega MD Jul 20, 2017 09:52
--- NOTE | 2017-07-20 10:53 | HHI.GIFU ---
Subjective Remarks Resting in bed in no apparent distress. GI was re-consulted for evaluation of dysphagia. Reports he is having trouble swallowing liquids, food, and his medication. States he has never had difficult swallowing before. He is s/p EGD on 07/13 which showed mild gastritis in the antrum and distal esophagitis; biopsies were negative for CMV/HSV, did show acute and chronic esophagitis, negative for H. pylori. ST evaluated the patient on 07/18 and recommended puree diet. (Joana Trejo) Objective Vitals I&O Vital Signs Date Time Temp Pulse Resp B/P (MAP) Pulse Ox O2 Delivery O2 Flow Rate FiO2 07/20/17 08:59 94 Nasal Cannula 2.00 07/20/17 08:33 98.3 96 18 106/59 (75) 94 07/20/17 05:34 98.1 88 18 165/77 (106) 94 07/20/17 00:15 97.7 62 19 113/54 (73) 94 07/19/17 22:34 97.7 63 20 113/54 (73) 100 07/19/17 21:10 61 07/19/17 21:10 100 Nasal Cannula 2.00 07/19/17 17:58 100 Nasal Cannula 2.00 07/19/17 16:33 98.4 66 18 107/52 100 07/19/17 14:50 97 Nasal Cannula 2.00 07/19/17 14:47 98.4 69 18 112/77 100 07/19/17 13:55 98.4 80 18 102/55 99 07/19/17 13:30 Nasal Cannula 2.00 07/19/17 11:19 98.5 93 18 95/47 100 07/19/17 10:52 99.4 94 18 94/47 99 I/O 07/19/17 07/19/17 07/19/17 07/20/17 07/20/17 07/20/17 07:00 15:00 23:00 07:00 15:00 23:00 Intake Total 400 ml 1370 ml 240 ml Output Total 350 ml 525 ml Balance 400 ml 1020 ml -285 ml Intake Oral 720 ml 240 ml Packed Cells 400 ml 400 ml Blood Product IV Normal Saline Flush 250 ml Output Urine Total 350 ml 525 ml # Voids 1 # Bowel Movements 0 0 Laboratory Laboratory Tests Test 07/20/17 05:40 07/20/17 08:45 Blood Urea Nitrogen 24 Creatinine 1.39 Random Glucose 84 Total Protein 4.8 Calcium Level 7.4 Sodium Level 144 Potassium Level 3.8 Chloride Level 108 Carbon Dioxide Level 30.6 Anion Gap 5 Estimat Glomerular Filtration Rate 49 Protein Corrected Calcium 8.7 White Blood Count 6.6 Red Blood Count 3.25 Hemoglobin 10.1 Hematocrit 29.1 Mean Corpuscular Volume 89.6 Mean Corpuscular Hemoglobin 31.1 Mean Corpuscular Hemoglobin Concent 34.7 Red Cell Distribution Width 19.4 Platelet Count 86 Mean Platelet Volume 8.8 Neutrophils (%) (Auto) 73.7 Lymphocytes (%) (Auto) 22.5 Monocytes (%) (Auto) 3.0 Eosinophils (%) (Auto) 0.4 Basophils (%) (Auto) 0.4 Neutrophils # (Auto) 4.8 Lymphocytes # (Auto) 1.5 Monocytes # (Auto) 0.2 Eosinophils # (Auto) 0.0 Basophils # (Auto) 0.0 CBC Comment AUTO DIFF Date/Time Source Procedure Growth Status 07/08/17 06:32 Blood Peripheral Aerobic Blood Culture - Final Staphylococcus Epidermidis Complete 07/08/17 06:32 Blood Peripheral Anaerobic Blood Culture - Final QNS - SEE AEROBE REPORT Complete 07/10/17 08:22 Stool Stool Stool Occult Blood (EVELIA) - Final HEMOCCULT NEGATIVE Complete 07/05/17 21:00 Sputum Expectorated Sputum Gram Stain - Final Complete 07/05/17 21:00 Sputum Culture - Final Klebsiella Pneumoniae Pseudomonas Aeruginosa Complete 06/24/17 15:55 Urine Catheterized Urine Urine Culture - Final NO GROWTH IN 48 HOURS. Complete Imaging Last Impressions Chest X-Ray 07/19/17 0000 Signed Impressions: Service Date/Time: Wednesday, July 19, 2017 03:32 - CONCLUSION: Left basilar airspace disease suspected. Central venous catheter placement as above. Braulio Sellers MD Upper Extremity Ultrasound 07/18/17 0000 Signed Impressions: Service Date/Time: Tuesday, July 18, 2017 13:24 - CONCLUSION: 1. Occlusive thrombus within the proximal and mid aspect of the left cephalic vein. 2. The remaining veins of both upper extremities are patent. Alli Cohen MD GI Bleed Scan Nuclear Medicine 07/10/17 0000 Signed Impressions: Service Date/Time: June 16:42 - CONCLUSION: No active gastrointestinal bleeding Alli Teague MD Abdomen X-Ray 07/08/17 0600 Signed Impressions: Service Date/Time: Saturday, July 08, 2017 04:09 - CONCLUSION: Negative KUB. Alli Schroeder MD Abdomen/Pelvis CT 07/05/17 0000 Signed Impressions: Service Date/Time: Wednesday, July 05, 2017 15:06 - CONCLUSION: 1. Left lower lobe consolidation. 2. Dilated loops of proximal and mid small bowel. 3. Stable distal abdominal aortic aneurysm. 4. Stable sigmoid diverticulosis without evidence of diverticulitis. David Gutierrez MD Hepatobiliary Scan Nuclear Medicine 06/25/17 0000 Signed Impressions: Service Date/Time: Sunday, June 25, 2017 10:43 - CONCLUSION: 1. No evidence for cystic duct obstruction. 2. Biliary enteric reflux. Braulio Sellers MD Physical Exam HEENT: Normocephalic; atraumatic, no jaundice. CHEST: CTA. CARDIAC: RRR. ABDOMEN: Soft, nontender, no hepatomegaly, bowel sounds present. EXTREMITIES: No edema. COMSEC MANAGER: Alert and oriented x 3. (Joana Trejo) Assessment and Plan Plan ASSESSMENT: - Dysphagia. Having trouble swallowing liquids, food, and his medication. Denies history of dysphagia. S/p EGD 07/13/17--mild gastritis in the antrum and distal esophagitis. Biopsies negative for CMV/HSV, did show acute and chronic esophagitis, negative for H. pylori. ST evaluation 07/18/17, recommended puree diet. - Bloody diarrhea, resolved. Had blood stool 07/10. Bleeding scan (07/10/17)-- no active GI bleeding. C. Diff negative. S/p incomplete colonoscopy (poor prep) 07/14/17, hemorrhoids. Refuses repeat colonoscopy. - Ileus. Improved. - GERD, PPI - Anemia. HH dropped on 07/18. HH--07/17 8.4/25.7, 07/18 6.5/19.7, 07/19 6.5/19.6, 07/20 10.1/29.1. Patient is s/p 2 units PRBC 07/19. - LEESA, nephrology following - ALEJANDRA, Resp. insufficiency. Improved. - DM, CHF, Hx CML with leukopenia, per attending. - Thrush. Nystatin and Magic mouthwash which is effective. PLAN: - EGD Friday - Obtain consents - NPO at [place] - Patient is refusing repeat Colonoscopy. - Monitor HH, transfuse as needed - Notify GI of active bleeding - Puree diet - Supportive care - Further recommendations to follow based on results of above Patient seen and examined by Dr. Chapman and myself and this note is written on his behalf. (Joana Trejo) Plan Patient was seen and examined, agree with above note but before doing the upper endoscopy I want to do a modified barium swallow with barium pill since his dysphagia mostly in his throat and to pills only, he is tolerating soft diet and liquid but not solid, patient may benefit from upper endoscopy with dilation but we'll defer that until after the barium swallow (Jeremiah Chapman MD) Joana Trejo Jul 20, 2017 10:53 Jeremiah Chapman MD Jul 20, 2017 14:13
[2017-07-20 11:09] LABS: BANDS 7 % (0-6); LYMPHOCYTES 18 % (9-44); METAMYELOCYTES 2 % (0-1); MONOCYTES 7 % (0-8); NEUTROPHIL # MANUAL DIFF 4.9 TH/MM3 (1.8-7.7); POLYS (SEG NEUTROPHILS) 65 % (16-70); TOXIC GRANULATION 1+ (NORMAL)
--- NOTE | 2017-07-20 13:03 | HHI.NPPN ---
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 I was called to see the patient because of elevated BUN and creatinine. Additional Remarks Patient is alert, feeling better, no SOB. Objective Data Data Vital Signs Date Time Temp Pulse Resp B/P (MAP) Pulse Ox O2 Delivery O2 Flow Rate FiO2 07/20/17 11:18 99.9 105 18 107/50 (69) 93 07/20/17 08:59 94 Nasal Cannula 2.00 07/20/17 08:33 98.3 96 18 106/59 (75) 94 07/20/17 05:34 98.1 88 18 165/77 (106) 94 07/20/17 00:15 97.7 62 19 113/54 (73) 94 07/19/17 22:34 97.7 63 20 113/54 (73) 100 07/19/17 21:10 61 07/19/17 21:10 100 Nasal Cannula 2.00 07/19/17 17:58 100 Nasal Cannula 2.00 07/19/17 16:33 98.4 66 18 107/52 100 07/19/17 14:50 97 Nasal Cannula 2.00 07/19/17 14:47 98.4 69 18 112/77 100 07/19/17 13:55 98.4 80 18 102/55 99 07/19/17 13:30 Nasal Cannula 2.00 -: 07/20/17 0845 07/20/17 0540 Physical Exam General Appearance: No Acute Distress, Comfortable Eyes Eye Exam: Pupils Equal Throat Throat Exam: Oral Mucosa [place] & Moist Neck Neck Exam: Neck Supple Pulmonary Resp Exam: Breath Sounds Equal, No Distress, Rhonchi, Sputum, Decreased Bases Cardiology CV Exam: Regular, Normal Sinus Rhythm Gastrointestinal/Abdomen GI Exam: Soft, Non-Tender, Bowel Sounds Present Extremeties Extremities Exam: Moderate Edema, Pitting Edema, Dependent Edema Neurologic Neuro Exam: Alert, Awake, Oriented Psychiatric Psych Exam: Appropriate Responses Assessment/Plan Assessment Summary: LEESA/Acute Renal Failure, Hypertension, CKD Stage IV Problem List: (1) COPD (chronic obstructive pulmonary disease) ICD Codes: J44.9 - Chronic obstructive pulmonary disease, unspecified Status: Chronic (2) Bronchitis ICD Codes: J40 - Bronchitis, not specified as acute or chronic Status: Acute (3) HTN (hypertension) ICD Codes: I10 - Essential (primary) hypertension Status: Chronic (4) Diabetes mellitus ICD Codes: E11.9 - Type 2 diabetes mellitus without complications (5) Acute respiratory failure ICD Codes: J96.00 - Acute respiratory failure, unspecified whether with hypoxia or hypercapnia (6) Severe sepsis ICD Codes: A41.9 - Sepsis, unspecified organism; R65.20 - Severe sepsis without septic shock Status: Acute (7) Acute kidney injury ICD Codes: N17.9 - Acute kidney failure, unspecified Status: Acute Plan Patient has been non oliguric. Has Chronic kidney disease, possibly stage 3- 4. Hb dropped and getting PRBC Hematology following hx of CML and Pancytopenia ID is following. Lasix stopped. Creatinine is stable Dr. Woods to follow Problem Qualifiers (1) Diabetes mellitus: Qualified Codes: E11.8 - Type 2 diabetes mellitus with unspecified complications (2) Acute respiratory failure: Qualified Codes: J96.02 - Acute respiratory failure with hypercapnia Basim Salmon MD Jul 20, 2017 13:03
--- NOTE | 2017-07-20 17:52 | PD.ONC.PN ---
Subjective Subjective Remarks still has trouble swallowing Objective Data Date Time Temp Pulse Resp B/P (MAP) Pulse Ox O2 Delivery O2 Flow Rate FiO2 07/20/17 16:32 94 Nasal Cannula 2.00 07/20/17 16:26 95 18 115/67 (83) 94 07/20/17 15:55 99.4 97 18 93/53 (66) 98 07/20/17 11:18 99.9 105 18 107/50 (69) 93 07/20/17 08:59 94 Nasal Cannula 2.00 07/20/17 08:33 98.3 96 18 106/59 (75) 94 07/20/17 08:00 88 07/20/17 05:34 98.1 88 18 165/77 (106) 94 07/20/17 00:15 97.7 62 19 113/54 (73) 94 07/19/17 22:34 97.7 63 20 113/54 (73) 100 07/19/17 21:10 61 07/19/17 21:10 100 Nasal Cannula 2.00 07/19/17 17:58 100 Nasal Cannula 2.00 07/20/17 07/20/17 07/20/17 07:00 15:00 23:00 Intake Total 240 ml Output Total 525 ml Balance -285 ml Result Diagram: 07/20/17 0845 07/20/17 0540 Laboratory Results Laboratory Tests Test 07/20/17 05:40 07/20/17 08:45 Blood Urea Nitrogen 24 MG/DL Creatinine 1.39 MG/DL Random Glucose 84 MG/DL Total Protein 4.8 GM/DL Calcium Level 7.4 MG/DL Sodium Level 144 MEQ/L Potassium Level 3.8 MEQ/L Chloride Level 108 MEQ/L Carbon Dioxide Level 30.6 MEQ/L Anion Gap 5 MEQ/L Estimat Glomerular Filtration Rate 49 ML/MIN Protein Corrected Calcium 8.7 MG/DL White Blood Count 6.6 TH/MM3 Red Blood Count 3.25 MIL/MM3 Hemoglobin 10.1 GM/DL Hematocrit 29.1 % Mean Corpuscular Volume 89.6 FL Mean Corpuscular Hemoglobin 31.1 PG Mean Corpuscular Hemoglobin Concent 34.7 % Red Cell Distribution Width 19.4 % Platelet Count 86 TH/MM3 Mean Platelet Volume 8.8 FL Neutrophils (%) (Auto) 73.7 % Lymphocytes (%) (Auto) 22.5 % Monocytes (%) (Auto) 3.0 % Eosinophils (%) (Auto) 0.4 % Basophils (%) (Auto) 0.4 % Neutrophils # (Auto) 4.8 TH/MM3 Lymphocytes # (Auto) 1.5 TH/MM3 Monocytes # (Auto) 0.2 TH/MM3 Eosinophils # (Auto) 0.0 TH/MM3 Basophils # (Auto) 0.0 TH/MM3 CBC Comment AUTO DIFF Differential Total Cells Counted 100 Neutrophils % (Manual) 65 % Band Neutrophils % 7 % Lymphocytes % 18 % Monocytes % 7 % Eosinophils % 1 % Neutrophils # (Manual) 4.9 TH/MM3 Metamyelocytes 2 % Differential Comment FINAL DIFF MANUAL Toxic Granulation 1+ Platelet Estimate LOW Platelet Morphology Comment NORMAL Administered Medications Medications (Trade) Dose Ordered Sig/Sunil Route PRN Reason Start Time Stop Time Status Last Admin Dose Admin Sodium Chloride (NS Flush) 2 ml UNSCH PRN IV FLUSH FLUSH AFTER USING IV ACCESS 06/24/17 20:30 07/19/17 22:29 Sodium Chloride (NS Flush) 2 ml BID IV FLUSH 06/24/17 21:00 07/20/17 08:53 Ondansetron HCl (Zofran Inj) 4 mg Q6H PRN IV PUSH NAUSEA OR VOMITING 06/24/17 20:30 07/03/17 17:30 Chlorhexidine Gluconate (Chlorhexidine 2% Cloth) Taper DAILY@04 TOP 06/25/17 04:00 06/21/18 03:59 07/01/17 04:00 Senna/Docusate Sodium (Olesya-Colace) 1 tab BID PO 06/24/17 21:00 07/19/17 08:23 Bisacodyl (Dulcolax Supp) 10 mg DAILY PRN RECTAL SEVERE CONSITIPATION 06/24/17 20:30 06/28/17 08:31 Amiodarone HCl (Cordarone) 200 mg DAILY PO 06/25/17 09:00 07/19/17 08:23 Methadone HCl (Methadone Liq) 2.5 mg BID PO 06/24/17 21:00 07/18/17 10:12 Dextrose (D50w (Vial) Inj) 50 ml UNSCH PRN IV PUSH HYPOGLYCEMIA-SEE COMMENTS 06/24/17 20:30 06/24/17 21:15 Sodium Chloride (NS Flush) DAILY IV FLUSH 06/25/17 09:00 07/20/17 08:52 Sodium Chloride (NS Flush) UNSCH PRN IV FLUSH SEE PROTOCOL 06/24/17 21:30 07/15/17 20:38 Morphine Sulfate (Morphine Inj) 2 mg Q3H PRN IV PUSH pain 1-5 06/24/17 23:15 07/12/17 18:23 Morphine Sulfate (Morphine Inj) 4 mg Q3H PRN IV PUSH pain 6-10 06/24/17 23:15 07/06/17 02:26 Bisacodyl (Dulcolax Ec) 10 mg HS PO 06/26/17 21:00 07/05/17 21:13 Sennosides (Senna Liq) 8.8 mg DAILY PO 06/28/17 09:00 07/20/17 08:48 Albuterol/ Ipratropium (Duoneb Neb) 1 ampule Q2HR NEB PRN NEB SHORTNESS OF BREATH 06/29/17 08:30 07/13/17 20:43 Insulin Human Regular (NovoLIN R SUPPLEMENTAL SCALE) 1 ACHS SQ 07/02/17 12:00 07/19/17 17:18 Albuterol/ Ipratropium (Duoneb Neb) 1 ampule Q4HR NEB PRN INH SHORTNESS OF BREATH 07/05/17 17:00 07/06/17 20:26 Sucralfate (Carafate Liq) 1 gm ACHS PO 07/09/17 08:00 07/19/17 16:44 Multi-Ingredient Mouthwash/Gargle (Magic Mouthwash Adult Liq) 5 ml QID SWISH-SWAL 07/09/17 09:00 07/19/17 17:17 Nystatin (Mycostatin Liq) 5 ml QID SWISH-SWAL 07/09/17 13:00 07/19/17 17:17 Nystatin (Mycostatin Oint) 1 applic Q8HR TOPICAL 07/09/17 15:15 07/20/17 13:47 Miconazole Nitrate (Micatin 2% Cream) 1 applic Q12HR TOPICAL 07/09/17 21:00 07/20/17 08:52 Imatinib Mesylate (Gleevec) 400 mg HS PO 07/11/17 21:00 Future hold 07/18/17 22:56 Lactobacillus Acidophilus (Lactinex) 1 tab TID PO 07/11/17 18:00 07/19/17 12:34 Lidocaine HCl (Xylocaine 2% Viscous) 15 ml Q4H PRN SWISH-SPIT prior to taking meds 07/12/17 10:15 07/15/17 08:26 Pantoprazole Sodium (Protonix) 40 mg Q12HR PO 07/12/17 21:00 07/19/17 08:23 Prednisone (Deltasone) 10 mg DAILY PO 07/17/17 09:00 07/19/17 08:23 Bacitracin (Baciguent Oint) 1 applic Q12HR TOPICAL 07/18/17 11:30 07/20/17 08:52 Objective Remarks GENERAL: Well-nourished, well-developed patient. SKIN: Warm and dry. HEAD: Normocephalic. EYES: No scleral icterus. No injection or drainage. NECK: Supple, trachea midline. No JVD or lymphadenopathy. LYMPHATIC: No adenopathy. CARDIOVASCULAR: Regular rate and rhythm without murmurs. RESPIRATORY: Breath sounds equal bilaterally. No accessory muscle use. GASTROINTESTINAL: Abdomen soft, non-tender, nondistended. EXTREMITIES: No cyanosis, or edema. MUSCULOSKELETAL: Adequate muscle tone. NEUROLOGICAL: No obvious focal deficit. Awake, alert, and oriented x3. PSYCHIATRIC: Appropriate mood and affect; insight and judgment normal. Assessment/Plan Problem List: (1) Anemia ICD Codes: D64.9 - Anemia, unspecified Plan: 07/19/17: give 2 units pRBC. 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 (3) GI bleed ICD Codes: K92.2 - Gastrointestinal hemorrhage, unspecified Status: Acute Plan: --GI signed off on 07/15 --had incomplete colonoscopy on 07/14 which showed hemorrhoids. --Bleeding scan,07/10--> no active GI bleeding. (4) Dysphagia ICD Codes: R13.10 - Dysphagia, unspecified Plan: --on oral Nystatin + diflucan --has declined EGD --?HSV Assessment 82 y/o male with history of CML. hematology consulted for pancytopenia Attending Statement GI note reviewed. For repeat EGD tomorrow. d/w and pt. Fabrice Patel MD Jul 20, 2017 17:52
[2017-07-20] MEDS ORDERED: HEPARIN SODIUM - IV 10,000 UNITS/10 ML VIAL IV PUSH ONE (19:45)
[2017-07-20] MEDS ORDERED: HEPARIN-D5W 25,000 U/250 ML 250 ML IV PRN (19:45)
[2017-07-20] MEDS: IMATINIB MESYLATE 100 MG TAB PO SCH (20:31)
[2017-07-20] MEDS: BISACODYL EC 5 MG TABEC PO SCH (20:31)
[2017-07-20] MEDS: SODIUM CHLORIDE 0.9% FLUSH 10 ML FLUSH IV FLUSH PRN ×2 (20:36)
[2017-07-20 20:56] LABS: HEMATOCRIT 26.7 % (39.0-51.0); HEMOGLOBIN 9.2 GM/DL (13.0-17.0); MEAN CELL VOLUME 89.3 FL (80.0-100.0); MEAN CORPUSCULAR HEMOGLOBIN 30.9 PG (27.0-34.0); MEAN CORPUSCULAR HGB CONC 34.5 % (32.0-36.0); MEAN PLATELET VOLUME 9.2 FL (7.0-11.0); PLATELET COUNT 70 TH/MM3 (150-450); RED BLOOD COUNT 2.99 MIL/MM3 (4.50-5.90); RED CELL DISTRIBUTION WIDTH 19.3 % (11.6-17.2)
[2017-07-20 21:02] LABS: INTERNATIONAL NORMALIZED RATIO 1.1 RATIO; PROTHROMBIN TIME - PATIENT 10.9 SEC (9.8-11.6)
[2017-07-21] VITALS (9 sets, daily range): BP systolic 94–147; BP diastolic 51–80; PULSE 78–96; RESP 16–18; TEMP 97.7–99.7; O2SAT 95–100
[2017-07-21] MEDS ORDERED: HEPARIN SODIUM - IV 10,000 UNITS/10 ML VIAL IV PUSH PRN ×2 (01:45)
[2017-07-21 02:52] LABS: AUTOMATED NEUTROPHIL # 5.3 TH/MM3 (1.8-7.7); BASOPHIL # 0.1 TH/MM3 (0-0.2); EOSINOPHIL % 0.2 % (0.0-4.0); HEMOGLOBIN 9.5 GM/DL (13.0-17.0); LYMPH % 31.4 % (9.0-44.0); LYMPHOCYTE # 2.6 TH/MM3 (1.0-4.8); MEAN CELL VOLUME 89.4 FL (80.0-100.0); MEAN CORPUSCULAR HEMOGLOBIN 30.3 PG (27.0-34.0); MEAN CORPUSCULAR HGB CONC 33.9 % (32.0-36.0); MEAN PLATELET VOLUME 8.2 FL (7.0-11.0); MONO % 2.6 % (0.0-8.0); MONOCYTE # 0.2 TH/MM3 (0-0.9); NEUT % 64.8 % (16.0-70.0); PLATELET COUNT 81 TH/MM3 (150-450); RED BLOOD COUNT 3.13 MIL/MM3 (4.50-5.90); RED CELL DISTRIBUTION WIDTH 18.7 % (11.6-17.2); WHITE BLOOD COUNT 8.1 TH/MM3 (4.0-11.0)
[2017-07-21 03:28] LABS: BICARBONATE 30.3 MEQ/L (21.0-32.0); CALCIUM 7.2 MG/DL (8.5-10.1); CREATININE 1.57 MG/DL (0.60-1.30); TROPONIN I 0.46 NG/ML (0.02-0.05)
[2017-07-21 04:38] LABS: CALCIUM-PROTEIN CORRECTED 8.6 MG/DL (8.5-10.1); TOTAL PROTEIN 4.6 GM/DL (6.4-8.2)
[2017-07-21] MEDS: NYSTATIN 100,000 U/GM OINT 15 GM TUBE TOPICAL SCH ×3 (07:20→22:31)
[2017-07-21] MEDS: SUCRALFATE 1 GM/10 ML CUP PO SCH ×4 (08:00→21:00)
[2017-07-21] MEDS: INSULIN NovoLIN REGULAR SUPPLEMENTAL SCALE SQ SCH ×4 (08:00→21:00)
[2017-07-21] MEDS: SENNOSIDES SYRUP 8.8 MG/5 ML CUP PO SCH (09:00)
[2017-07-21] MEDS: NYSTAT/DIPHENHY/LIDO MOUTHWASH (Adult) 120ML SWISH-SWAL SCH ×4 (09:00→21:00)
[2017-07-21] MEDS: NYSTATIN SUSP 500,000 U/5 ML CUP SWISH-SWAL SCH ×4 (09:00→21:00)
[2017-07-21] MEDS: MICONAZOLE NITRATE 2% CREAM 15 GM TOPICAL SCH ×3 (09:00→22:30)
[2017-07-21] MEDS: SODIUM CHLORIDE 0.9% FLUSH 10 ML FLUSH IV FLUSH SCH ×3 (09:00→22:33)
[2017-07-21] MEDS: BACITRACIN TOP OINT 15 GM TUBE TOPICAL SCH ×3 (09:00→22:30)
[2017-07-21] MEDS: METHADONE HCL 10 MG/10 ML ORAL SOLUTION PO SCH ×2 (09:00→21:00)
[2017-07-21] MEDS: PANTOPRAZOLE SOD 40 MG DELAYED RELEASE TAB PO SCH ×2 (09:50→22:32)
[2017-07-21] MEDS: DOCUSATE SODIUM 50 MG/SENNA 8.6 MG TAB PO SCH ×2 (09:50→21:00)
[2017-07-21] MEDS: predniSONE 10 MG TAB PO SCH (09:50)
[2017-07-21] MEDS: LACTOBACILLUS ACIDOPHILUS TAB PO SCH ×3 (09:50→18:00)
[2017-07-21] MEDS: AMIODARONE 200 MG TAB PO SCH (09:50)
--- NOTE | 2017-07-21 11:12 | RADRPT ---
EXAM DATE/TIME: 07/21/2017 00:00 [facility] COMPARISON: No previous studies available for comparison. INDICATIONS : Dysphagia. FLUORO TIME: 3.0 minutes IMAGE COUNT: 0 CONTRAST: Dose as prescribed by speech pathologist. MEDICAL HISTORY : Myocardial infarction. Chronic obstructive pulmonary disease. Congestive heart failure. emphysema , leukemia, GERD, SURGICAL HISTORY : Pacemaker. ENCOUNTER: Initial ACUITY: 3 weeks PAIN SCORE: 0/10 LOCATION: Bilateral neck FINDINGS: A modified barium swallow was performed with speech pathology. Patient was given a variety of liquids to swallow. Vestibular penetration without significant aspiration was demonstrated during repeated swallowing of thin liquid material through a straw. Although significant discomfort was described by the patient swallowing of thick liquid, pure and s olid material was tolerated without evidence of aspiration. The patient was asked to swallow a barium tablet. Patient had extreme difficulty swallowing the table t which eventually became lodged in the vallecula. During coughing the patient was able to ingest the tablet however this did not occur during normal swallowing mechanism. For a full detailed report, see report by the speech pathologist. CONCLUSION: Swallowing mechanism remains labored. Minimal vestibular penetration without aspiration due to rapid swallowing through a straw. Patient was unable to naturally swallow a barium tablet. Kendall Marti MD on July 21, 2017 at 11:06 Board Certified Radiologist. This report was verified electronically.
[2017-07-21] MEDS ORDERED: PHENYLEPH/NS 1000 MCG/10 ML SYR IV ONE (12:00)
[2017-07-21] MEDS ORDERED: PROPOFOL 200 MG/20 ML AMP IV ONE (12:00)
--- NOTE | 2017-07-21 12:14 | PD.CONS ---
HPI Consult Requested By Primary Care Physician Non-Staff History of Present Illness 82-year-old male who was admitted on 06/24/2017 due to abdominal pain. He complained of right upper and lower quadrant abdominal pain radiating to his back. Patient was treated for sepsis in the ICU, blood cultures 07/06 were positive for Klebsiella pneumoniae, also has a left lower lobe lung consolidation. Stay has been complicated with Ileus, Hospital-acquired pneumonia , Dysphagia, Hematochezia, Acute kidney injury. Chronic kidney disease possibly stage 3-4 and Chronic systolic congestive heart failure. Echo on this admission shows ejection fraction 45-50% improved form previous. Cardiology consulted due to elevated troponin. Code DNR. Review of Systems Consitutional: COMPLAINS OF: Fatigue, DENIES: Fever, Chills, Weight gain, Weight loss Eyes: DENIES: Amaurosis Fugax, Change in vision HEENT: DENIES: Lightheadedness, Change in hearing Respiratory: DENIES: See HPI, Cough, Snoring, Shortness of breath, Wheezing, Sputum production Cardiovascular: DENIES: See HPI, Chest pain, Palpitations, Syncope, Tachycardia Gastrointestinal: DENIES: Nausea, Vomiting, Change in bowel habits, Reflux, Bloody stools, Melena Genitourinary: DENIES: Urinary incontinence, Difficulty voiding Integumentary: DENIES: Rash Neurologic: DENIES: Tingling or numbness, Memory problems, Poor Balance, Stroke symptoms Musculoskeletal: DENIES: Joint pain, Muscle pain, Limited range of motion, Back pain Psychiatric: DENIES: Anxiety, Depression, Sleep disturbances Hematologic: DENIES: Bruising tendencies, Bleeding tendencies Endocrine: DENIES: Weight gain, Weight loss, Thyroid disease Past Family Social History Allergies: Coded Allergies: No Known Allergies (Verified , 09/19/15) Past Medical History CML COPD CHF AAA CKD pacemaker sciatica Past Surgical History Cataract right eye surgery lung biopsy Bilateral ear tubes Left total knee arthroplasty AICD Reported Medications Reported Meds & Active Scripts Active Methadone (Methadone HCl) 5 Mg Tab 2.5 Mg PO BID Senna Plus 8.6-50 mg (Sennosides-Docusate Sodium) 8.6 Mg-50 Mg Tab 1 Tab PO BID Proair Hfa 8.5 GM Inh (Albuterol Sulfate) 90 Mcg/Act Aer 2 Puff INH Q4-6H PRN 108 mcg/actuation Reported Novolog Inj (Insulin Aspart) 1,000 Unit/10 Ml Vial 0 SQ ACHS Sliding Scale as directed. Prednisone 10 Mg Tab 10 Mg PO DAILY PRN Ferrous Sulfate 325 Mg (65 Mg Iron) Tablet 325 Mg PO BIDPC Amiodarone (Amiodarone HCl) 200 Mg Tab 200 Mg PO DAILY Coreg (Carvedilol) 3.125 Mg Tab 3.125 Mg PO BID Aspirin 325 Mg Tab 325 Mg PO DAILY Glipizide 5 Mg Tab 5 Mg PO DAILY Take 30 minutes before a meal Lasix (Furosemide) 40 Mg Tab 40 Mg PO DAILY Gleevec (Imatinib Mesylate) 100 Mg Tab 400 Mg PO DAILY Active Ordered Medications Current Medications Medications (Trade) Dose Ordered Sig/Sunil Route Start Time Stop Time Status Last Admin (NS Flush) 2 ml UNSCH PRN IV FLUSH 06/24/17 20:30 07/20/17 20:36 (NS Flush) 2 ml BID IV FLUSH 06/24/17 21:00 07/20/17 20:36 (Tylenol) 650 mg Q6H PRN PO 06/24/17 20:30 (Zofran Inj) 4 mg Q6H PRN IV PUSH 06/24/17 20:30 07/03/17 17:30 Miscellaneous Information 1 Q361D XX 06/24/17 20:30 (Chlorhexidine 2% Cloth) Taper DAILY@04 TOP 06/25/17 04:00 06/21/18 03:59 07/01/17 04:00 (Chlorhexidine 2% Cloth) 3 pack UNSCH PRN TOP 06/24/17 20:30 (Olesya-Colace) 1 tab BID PO 06/24/17 21:00 07/21/17 09:50 (Senokot) 17.2 mg Q12H PRN PO 06/24/17 20:30 (Dulcolax Supp) 10 mg DAILY PRN RECTAL 06/24/17 20:30 06/28/17 08:31 (Cordarone) 200 mg DAILY PO 06/25/17 09:00 07/21/17 09:50 (Methadone Liq) 2.5 mg BID PO 06/24/17 21:00 07/18/17 10:12 (D50w (Vial) Inj) 50 ml UNSCH PRN IV PUSH 06/24/17 20:30 06/24/17 21:15 (Glucagon Inj) 1 mg UNSCH PRN OTHER 06/24/17 20:30 (Brethine Inj) 1 mg UNSCH PRN SQ 06/24/17 21:00 (NS Flush) DAILY IV FLUSH 06/25/17 09:00 07/21/17 09:48 (NS Flush) UNSCH PRN IV FLUSH 06/24/17 21:30 07/20/17 20:36 (Morphine Inj) 2 mg Q3H PRN IV PUSH 06/24/17 23:15 07/12/17 18:23 (Morphine Inj) 4 mg Q3H PRN IV PUSH 06/24/17 23:15 07/06/17 02:26 (Dulcolax Ec) 10 mg HS PO 06/26/17 21:00 07/20/17 20:31 (Senna Liq) 8.8 mg DAILY PO 06/28/17 09:00 07/20/17 08:48 (Duoneb Neb) 1 ampule Q2HR NEB PRN NEB 06/29/17 08:30 07/13/17 20:43 (NovoLIN R SUPPLEMENTAL SCALE) 1 ACHS SQ 07/02/17 12:00 07/19/17 17:18 (Duoneb Neb) 1 ampule Q4HR NEB PRN INH 07/05/17 17:00 07/06/17 20:26 (Carafate Liq) 1 gm ACHS PO 07/09/17 08:00 07/19/17 16:44 (Magic Mouthwash Adult Liq) 5 ml QID SWISH-SWAL 07/09/17 09:00 07/19/17 17:17 (Mycostatin Liq) 5 ml QID SWISH-SWAL 07/09/17 13:00 07/20/17 20:35 (Mycostatin Oint) 1 applic Q8HR TOPICAL 07/09/17 15:15 07/21/17 07:20 (Micatin 2% Cream) 1 applic Q12HR TOPICAL 07/09/17 21:00 07/20/17 20:38 (Gleevec) 400 mg HS PO 07/11/17 21:00 Future hold 07/20/17 20:31 (Lactinex) 1 tab TID PO 07/11/17 18:00 07/21/17 09:50 (Xylocaine 2% Viscous) 15 ml Q4H PRN SWISH-SPIT 07/12/17 10:15 07/15/17 08:26 (Protonix) 40 mg Q12HR PO 07/12/17 21:00 07/21/17 09:50 (Deltasone) 10 mg DAILY PO 07/17/17 09:00 07/21/17 09:50 (Baciguent Oint) 1 applic Q12HR TOPICAL 07/18/17 11:30 07/20/17 20:39 Heparin Sodium/ Dextrose 250 ml @ 16 mls/hr TITRATE PRN IV 07/18/17 17:30 Family History noncontributory Social History denies ETOH, tobacco, illicit drug use Physical Exam Vital Signs Vital Signs Date Time Temp Pulse Resp B/P (MAP) Pulse Ox O2 Delivery O2 Flow Rate FiO2 07/21/17 04:05 94 07/21/17 03:43 98.1 96 18 94/65 (75) 98 07/21/17 00:18 99.7 95 16 130/59 (82) 99 07/21/17 00:03 93 07/20/17 20:25 87 07/20/17 20:04 98.9 91 16 114/52 (72) 98 07/20/17 20:00 Nasal Cannula 2.00 07/20/17 16:32 94 Nasal Cannula 2.00 07/20/17 16:26 95 18 115/67 (83) 94 07/20/17 15:55 99.4 97 18 93/53 (66) 98 Physical Exam GENERAL: Well-nourished, well-developed patient. SKIN: Warm and dry. HEAD: Normocephalic. EYES: No scleral icterus. No injection or drainage. NECK: Supple, trachea midline. No JVD or lymphadenopathy. CARDIOVASCULAR: Regular rate and rhythm without murmurs, gallops, or rubs. RESPIRATORY: Breath sounds equal bilaterally. No accessory muscle use. GASTROINTESTINAL: Abdomen soft, non-tender, nondistended. EXTREMITIES: No cyanosis, or edema. NEUROLOGICAL: Awake, alert, and oriented x 3. Non-focal. Laboratory Laboratory Tests Test 07/20/17 18:07 07/20/17 20:15 07/21/17 02:35 07/21/17 11:30 Troponin I 0.43 0.46 White Blood Count 7.0 8.1 Red Blood Count 2.99 3.13 Hemoglobin 9.2 9.5 Hematocrit 26.7 28.0 Mean Corpuscular Volume 89.3 89.4 Mean Corpuscular Hemoglobin 30.9 30.3 Mean Corpuscular Hemoglobin Concent 34.5 33.9 Red Cell Distribution Width 19.3 18.7 Platelet Count 70 81 Mean Platelet Volume 9.2 8.2 Prothrombin Time 10.9 Prothromb Time International Ratio 1.1 Activated Partial Thromboplast Time 27.3 26.8 Neutrophils (%) (Auto) 64.8 Lymphocytes (%) (Auto) 31.4 Monocytes (%) (Auto) 2.6 Eosinophils (%) (Auto) 0.2 Basophils (%) (Auto) 1.0 Neutrophils # (Auto) 5.3 Lymphocytes # (Auto) 2.6 Monocytes # (Auto) 0.2 Eosinophils # (Auto) 0.0 Basophils # (Auto) 0.1 CBC Comment AUTO DIFF Differential Comment AUTO DIFF CONFIRMED Platelet Estimate LOW Platelet Morphology Comment NORMAL Blood Urea Nitrogen 21 Creatinine 1.57 Random Glucose 91 Total Protein 4.6 Calcium Level 7.2 Sodium Level 145 Potassium Level 3.6 Chloride Level 108 Carbon Dioxide Level 30.3 Anion Gap 7 Estimat Glomerular Filtration Rate 43 Protein Corrected Calcium 8.6 Total Creatine Kinase 129 Date/Time Source Procedure Growth Status 07/08/17 06:32 Blood Peripheral Aerobic Blood Culture - Final Staphylococcus Epidermidis Complete 07/08/17 06:32 Blood Peripheral Anaerobic Blood Culture - Final QNS - SEE AEROBE REPORT Complete 07/21/17 02:30 Stool Stool Stool Occult Blood (EVELIA) - Final HEMOCCULT POSITIVE Complete 07/05/17 21:00 Sputum Expectorated Sputum Gram Stain - Final Complete 07/05/17 21:00 Sputum Culture - Final Klebsiella Pneumoniae Pseudomonas Aeruginosa Complete 06/24/17 15:55 Urine Catheterized Urine Urine Culture - Final NO GROWTH IN 48 HOURS. Complete Result Diagram: 07/21/17 0235 07/21/17 0235 Imaging Last Impressions Modified Barium Swallow 07/21/17 0000 Signed Impressions: Service Date/Time: Friday, July 21, 2017 00:00 - CONCLUSION: Swallowing mechanism remains labored. Minimal vestibular penetration without aspiration due to rapid swallowing through a straw. Patient was unable to naturally swallow a barium tablet. Kendall Marti MD Chest X-Ray 07/19/17 0000 Signed Impressions: Service Date/Time: Wednesday, July 19, 2017 03:32 - CONCLUSION: Left basilar airspace disease suspected. Central venous catheter placement as above. Braulio Sellers MD Upper Extremity Ultrasound 07/18/17 0000 Signed Impressions: Service Date/Time: Tuesday, July 18, 2017 13:24 - CONCLUSION: 1. Occlusive thrombus within the proximal and mid aspect of the left cephalic vein. 2. The remaining veins of both upper extremities are patent. Alli Cohen MD GI Bleed Scan Nuclear Medicine 07/10/17 0000 Signed Impressions: Service Date/Time: June 16:42 - CONCLUSION: No active gastrointestinal bleeding Alli Teague MD Abdomen X-Ray 07/08/17 0600 Signed Impressions: Service Date/Time: Saturday, July 08, 2017 04:09 - CONCLUSION: Negative KUB. Alli Schroeder MD Abdomen/Pelvis CT 07/05/17 0000 Signed Impressions: Service Date/Time: Wednesday, July 05, 2017 15:06 - CONCLUSION: 1. Left lower lobe consolidation. 2. Dilated loops of proximal and mid small bowel. 3. Stable distal abdominal aortic aneurysm. 4. Stable sigmoid diverticulosis without evidence of diverticulitis. David Gutierrez MD Hepatobiliary Scan Nuclear Medicine 06/25/17 0000 Signed Impressions: Service Date/Time: Sunday, June 25, 2017 10:43 - CONCLUSION: 1. No evidence for cystic duct obstruction. 2. Biliary enteric reflux. Braulio Sellers MD Assessment and Plan Problem List: (1) Chronic systolic heart failure ICD Codes: I50.22 - Chronic systolic (congestive) heart failure Status: Chronic Plan: 82 y/o M with known Non-Ischemic CMP, improved LV systolic dysfunction consulted due to elevated troponin. Patient denies chest pain or SOB. Hx significant for severe anemia and CKD which will explain the elevated troponin due to demand ischemia. No need for any invasive cardiac management at this time. Continue conservative management. Follow with Dr. Ruffin upon discharge. Sign Off. (2) Chronic renal failure ICD Codes: N18.9 - Chronic kidney disease, unspecified Status: Acute (3) Diabetes ICD Codes: E11.9 - Type 2 diabetes mellitus without complications Status: Chronic (4) CML (chronic myelocytic leukemia) ICD Codes: C92.10 - Chronic myeloid leukemia, BCR/ABL-positive, not having achieved remission Status: Chronic (5) COPD (chronic obstructive pulmonary disease) ICD Codes: J44.9 - Chronic obstructive pulmonary disease, unspecified Status: Chronic (6) Diabetes mellitus ICD Codes: E11.9 - Type 2 diabetes mellitus without complications (7) HTN (hypertension) ICD Codes: I10 - Essential (primary) hypertension Status: Chronic (8) CKD (chronic kidney disease), stage III ICD Codes: N18.3 - Chronic kidney disease, stage 3 (moderate) Status: Chronic (9) Fatigue ICD Codes: R53.83 - Other fatigue (10) Dyspnea ICD Codes: R06.00 - Dyspnea, unspecified (11) Cardiomyopathy ICD Codes: I42.9 - Cardiomyopathy, unspecified Status: Chronic (12) Anemia ICD Codes: D64.9 - Anemia, unspecified Problem Qualifiers (1) Diabetes mellitus: Qualified Codes: E11.8 - Type 2 diabetes mellitus with unspecified complications Matt Small MD Jul 21, 2017 12:14
[2017-07-21 12:47] LABS: TROPONIN I 0.46 NG/ML (0.02-0.05)
--- NOTE | 2017-07-21 13:00 | HHI.PR ---
Subjective Remarks Seen earlier today. Patient complaints of severe dysphagia and odynophagia . he is not able to eat anything. He feels very tired. No fever or chills. He is not coughing. Denies abd pain . Objective Vitals Vital Signs Date Time Temp Pulse Resp B/P (MAP) Pulse Ox O2 Delivery O2 Flow Rate FiO2 07/21/17 04:05 94 07/21/17 03:43 98.1 96 18 94/65 (75) 98 07/21/17 00:18 99.7 95 16 130/59 (82) 99 07/21/17 00:03 93 07/20/17 20:25 87 07/20/17 20:04 98.9 91 16 114/52 (72) 98 07/20/17 20:00 Nasal Cannula 2.00 07/20/17 16:32 94 Nasal Cannula 2.00 07/20/17 16:26 95 18 115/67 (83) 94 07/20/17 15:55 99.4 97 18 93/53 (66) 98 I/O 07/20/17 07/20/17 07/20/17 07/21/17 07/21/17 07/21/17 07:00 15:00 23:00 07:00 15:00 23:00 Intake Total 240 ml 720 ml 240 ml Output Total 525 ml 300 ml 2 ml Balance -285 ml 420 ml 238 ml Intake Oral 240 ml 720 ml 240 ml Output Urine Total 525 ml 300 ml 2 ml # Bowel Movements 0 0 1 Result Diagram: 07/21/17 0235 07/21/17 0235 Imaging Last Impressions Modified Barium Swallow 07/21/17 0000 Signed Impressions: Service Date/Time: Friday, July 21, 2017 00:00 - CONCLUSION: Swallowing mechanism remains labored. Minimal vestibular penetration without aspiration due to rapid swallowing through a straw. Patient was unable to naturally swallow a barium tablet. Kendall Marti MD Chest X-Ray 07/19/17 0000 Signed Impressions: Service Date/Time: Wednesday, July 19, 2017 03:32 - CONCLUSION: Left basilar airspace disease suspected. Central venous catheter placement as above. Braulio Sellers MD Upper Extremity Ultrasound 07/18/17 0000 Signed Impressions: Service Date/Time: Tuesday, July 18, 2017 13:24 - CONCLUSION: 1. Occlusive thrombus within the proximal and mid aspect of the left cephalic vein. 2. The remaining veins of both upper extremities are patent. Alli Cohen MD GI Bleed Scan Nuclear Medicine 07/10/17 0000 Signed Impressions: Service Date/Time: June 16:42 - CONCLUSION: No active gastrointestinal bleeding Alli Teague MD Abdomen X-Ray 07/08/17 0600 Signed Impressions: Service Date/Time: Saturday, July 08, 2017 04:09 - CONCLUSION: Negative KUB. Alli Schroeder MD Abdomen/Pelvis CT 07/05/17 0000 Signed Impressions: Service Date/Time: Wednesday, July 05, 2017 15:06 - CONCLUSION: 1. Left lower lobe consolidation. 2. Dilated loops of proximal and mid small bowel. 3. Stable distal abdominal aortic aneurysm. 4. Stable sigmoid diverticulosis without evidence of diverticulitis. David Gutierrez MD Hepatobiliary Scan Nuclear Medicine 06/25/17 0000 Signed Impressions: Service Date/Time: Sunday, June 25, 2017 10:43 - CONCLUSION: 1. No evidence for cystic duct obstruction. 2. Biliary enteric reflux. Braulio Sellers MD Objective Remarks GENERAL: Well-nourished, well-developed pleasant elderly obese male patient. SKIN: Warm and dry. Multiple tattoos on extremities. behnd ears small skin breakdown form O2 use. HEAD: Normocephalic. EYES: No scleral icterus. No injection or drainage. NECK: Supple, trachea midline. No JVD or lymphadenopathy. CARDIOVASCULAR: Regular rate and rhythm without murmurs, gallops, or rubs. RESPIRATORY: Breath sounds equal bilaterally. No accessory muscle use. CTAB. GASTROINTESTINAL: Abdomen soft, non-tender, nondistended. EXTREMITIES: No peripheral edema. NEUROLOGICAL: Awake, alert, and oriented x 3. Non-focal. Procedures Echo 06/26/2017 Mildly dilated left ventricle. The left ventricular systolic function is mildly reduced with an estimated ejection fraction in the range of 45- 50%. Wall thickness is normal. A pacemaker wire is noted. There is a pacemaker wire present in the right atrial cavity. [id number] mitral valve regurgitation. There is trace tricuspid valve regurgitation. A/P Problem List: (1) Diverticulosis ICD Code: K57.90 - Diverticulosis of intestine, part unspecified, without perforation or abscess without bleeding (2) ALEJANDRA (obstructive sleep apnea) ICD Code: G47.33 - Obstructive sleep apnea (adult) (pediatric) Status: Chronic (3) Acute respiratory failure ICD Code: J96.00 - Acute respiratory failure, unspecified whether with hypoxia or hypercapnia (4) Acute kidney injury ICD Code: N17.9 - Acute kidney failure, unspecified Status: Acute (5) Thrombocytopenia ICD Code: D69.6 - Thrombocytopenia, unspecified Status: Acute (6) Macrocytic anemia ICD Code: D53.9 - Nutritional anemia, unspecified Status: Chronic (7) Diabetes mellitus ICD Code: E11.9 - Type 2 diabetes mellitus without complications (8) Chronic systolic heart failure ICD Code: I50.22 - Chronic systolic (congestive) heart failure Status: Chronic (9) Sepsis ICD Code: A41.9 - Sepsis, unspecified organism Status: Acute (10) GI bleed ICD Code: K92.2 - Gastrointestinal hemorrhage, unspecified Status: Acute (11) Bacteremia due to Klebsiella pneumoniae ICD Code: R78.81 - Bacteremia Status: Acute (12) Ileus ICD Code: K56.7 - Ileus, unspecified Status: Resolved (13) Candidiasis of mouth and esophagus ICD Code: B37.81 - Candidal esophagitis; B37.0 - Candidal stomatitis Status: Acute (14) Pneumonia ICD Code: J18.9 - Pneumonia, unspecified organism Status: Acute (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, BCR/ABL-positive, not having achieved remission Status: Chronic (16) Pancytopenia ICD Code: D61.818 - Other pancytopenia Status: Chronic (17) COPD (chronic obstructive pulmonary disease) ICD Code: J44.9 - Chronic obstructive pulmonary disease, unspecified Status: Chronic (18) Acute renal failure ICD Code: N17.9 - Acute kidney failure, unspecified Status: Acute (19) Iron deficiency anemia ICD Code: D50.9 - Iron deficiency anemia, unspecified Status: Acute (20) AICD (automatic cardioverter/defibrillator) present ICD Code: Z95.810 - Presence of automatic (implantable) cardiac defibrillator Status: Acute (21) Anemia associated with acute blood loss ICD Code: D62 - Acute posthemorrhagic anemia Status: Acute (22) Cardiomyopathy ICD Code: I42.9 - Cardiomyopathy, unspecified Status: Chronic (23) Left bundle branch block ICD Code: I44.7 - Left bundle-branch block, unspecified Status: Chronic (24) Paroxysmal ventricular tachycardia ICD Code: I47.2 - Ventricular tachycardia Status: Resolved Assessment and Plan 82-year-old male who was admitted on 06/24/2017 due to abdominal pain. He complained of right upper and lower quadrant abdominal pain radiating to his back. Patient was found to be hypotensive and received 4 L of normal saline. Lactate was essentially normal. CT abdomen pelvis showed diverticulosis, edematous gallbladder with some stones. Patient received vancomycin and Zosyn in the emergency department. He was managed in the ICU and required Levophed for hypotension. He had acute kidney injury as well which improved gradually. Sepsis, hypotension - resolved. blood cultures 07/06 were positive for Klebsiella pneumoniae, also has a left lower lobe lung consolidation. blood culture 07/08 with staph epidermidis likely contaminant. On antibiotics levaquin per ID/levaquin. Abdominal pain, Ileus - resolve s/p NG tube. Cont. Lactulose, Senna, Pericolace, Dulcolax supp Hospital-acquired pneumonia - stable on 2 L nasal cannula Previous chest x-rays and CT abdomen pelvis did not identify any lung infiltrates. However, abd CT 07/05 did show LLL consolidation. Infectious disease following, patient was on Zosyn now transitioned to Levaquin, last dose today. Repeat cxr 07/13 showed left lower lobe infiltrate. COPD - followed by Dr. Escamilla as outpatient. On prednisone taper. Duo nebs as needed. Chronic pain - cont methadone 2.5 mg twice a day and morphine 2 mg IV every 3 hours when necessary. Oral thrush, and odynophagia Dysphagia sucralfate was ordered by oncology team. on nystatin and magic mouth wash. Status post course of Diflucan per ID. lidocaine swish and spit prior to taking by mouth meds. GI input appreciated. S/p EGD 07/13 showing mild gastritis in the antrum and distal esophagitis - biopsies were negative for CMV/HSV, did show acute and chronic esophagitis, negative for H. pylori Do swallow evaluation. ST consulted recommends puree diet. Patient still with dysphagia refusing meds. Reconsult GI for evaluation. Hematochezia bleeding scan 07/10 negative. H&H declined 6.5/. Transfuse 2 units of blood. Give Lasix in between units. EGD 07/13 - mild esophagitis, gastritis cont protonix, monitor H&H Status post colonoscopy on 07/14 showing incomplete prep and internal and external hemorrhoids, patient refused repeat colonoscopy. GI has signed off Patient however with severe dysphagia not able to eat and refusing meds, reconsult GI Pancytopenia, CML Heme/onc following. Gleevec resumed 07/11 - held yesterday for slightly low platelets which are normal today No anti-coagulation due to pancytopenia. HIT negative. Follow CBC Acute kidney injury. Chronic kidney disease possibly stage 3-4 Creatinine is much improved. Nephrology is following. s/p diuresis. Holding lasix due to hypernatremia -received gentle IV fluids NSat 60 cc/h, stopped as patient with UE edema. Monitor BMP in the morning. BMP shows improved creatinine today, BL upper extremity edema. Do Doppler US to r/o DVT, with superficial DVT no anticoagulation. Stop IVF Hypernatremia improving after holding lasix and on gentle IV fluids and S at 60 and miles per hour. ff repeat BMP. I will give gentle IV fluids overnight. Chronic systolic congestive heart failure Echo from this admission shows ejection fraction 45-50% monitor for any fluid overload, monitor I/O. start PO lasix when sodium improved. Buttock and leg wounds: wound care following and has made recs, appreciate assistance History of ventricular tachycardia status post AICD. Continue amiodarone. Low grade fever 1. Monitor temps. He has loose stools likely secondary to being on liquid diet will advance to heart healthy. He had a negative C. difficile one week ago. DVT px - SCDs. No anti-coagulation due to thrombocytopenia, hematology recommendations. PT/OT following DO NOT RESUSCITATE status Discharge Planning Will require SNF when stable for DC With severe dysphagia not able to eat and refusing meds, reconsulted GI. patien tis not able to have anything PO. Problem Qualifiers (1) Diverticulosis: (2) Acute respiratory failure: Qualified Codes: J96.02 - Acute respiratory failure with hypercapnia (3) Diabetes mellitus: Qualified Codes: E11.8 - Type 2 diabetes mellitus with unspecified complications (4) Pneumonia: Deepika Ortega MD Jul 21, 2017 13:00
--- NOTE | 2017-07-21 15:24 | PD.ONC.PN ---
Subjective Subjective Remarks Afebrile overnight. Patient fatigued. Had chest pain yesterday and elevated troponin. Was seen by cardiology who did not recommend invasive intervention. Waiting now to go down for EGD. Objective Data Date Time Temp Pulse Resp B/P (MAP) Pulse Ox O2 Delivery O2 Flow Rate FiO2 07/21/17 11:00 90 18 96/56 (69) 98 07/21/17 08:00 97.7 86 16 101/56 (71) 96 07/21/17 08:00 96 Nasal Cannula 2.00 07/21/17 04:05 94 07/21/17 03:43 98.1 96 18 94/65 (75) 98 07/21/17 00:18 99.7 95 16 130/59 (82) 99 07/21/17 00:03 93 07/20/17 20:25 87 07/20/17 20:04 98.9 91 16 114/52 (72) 98 07/20/17 20:00 Nasal Cannula 2.00 07/20/17 16:32 94 Nasal Cannula 2.00 07/20/17 16:26 95 18 115/67 (83) 94 07/20/17 15:55 99.4 97 18 93/53 (66) 98 07/21/17 07/21/17 07/21/17 07:00 15:00 23:00 Intake Total 240 ml Output Total 2 ml Balance 238 ml Result Diagram: 07/21/17 0235 07/21/17 0235 Laboratory Results Laboratory Tests Test 07/20/17 18:07 07/20/17 20:15 07/21/17 02:35 07/21/17 11:30 Troponin I 0.43 NG/ML 0.46 NG/ML 0.46 NG/ML White Blood Count 7.0 TH/MM3 8.1 TH/MM3 Red Blood Count 2.99 MIL/MM3 3.13 MIL/MM3 Hemoglobin 9.2 GM/DL 9.5 GM/DL Hematocrit 26.7 % 28.0 % Mean Corpuscular Volume 89.3 FL 89.4 FL Mean Corpuscular Hemoglobin 30.9 PG 30.3 PG Mean Corpuscular Hemoglobin Concent 34.5 % 33.9 % Red Cell Distribution Width 19.3 % 18.7 % Platelet Count 70 TH/MM3 81 TH/MM3 Mean Platelet Volume 9.2 FL 8.2 FL Prothrombin Time 10.9 SEC Prothromb Time International Ratio 1.1 RATIO Activated Partial Thromboplast Time 27.3 SEC 26.8 SEC Neutrophils (%) (Auto) 64.8 % Lymphocytes (%) (Auto) 31.4 % Monocytes (%) (Auto) 2.6 % Eosinophils (%) (Auto) 0.2 % Basophils (%) (Auto) 1.0 % Neutrophils # (Auto) 5.3 TH/MM3 Lymphocytes # (Auto) 2.6 TH/MM3 Monocytes # (Auto) 0.2 TH/MM3 Eosinophils # (Auto) 0.0 TH/MM3 Basophils # (Auto) 0.1 TH/MM3 CBC Comment AUTO DIFF Differential Comment AUTO DIFF CONFIRMED Platelet Estimate LOW Platelet Morphology Comment NORMAL Blood Urea Nitrogen 21 MG/DL Creatinine 1.57 MG/DL Random Glucose 91 MG/DL Total Protein 4.6 GM/DL Calcium Level 7.2 MG/DL Sodium Level 145 MEQ/L Potassium Level 3.6 MEQ/L Chloride Level 108 MEQ/L Carbon Dioxide Level 30.3 MEQ/L Anion Gap 7 MEQ/L Estimat Glomerular Filtration Rate 43 ML/MIN Protein Corrected Calcium 8.6 MG/DL Total Creatine Kinase 129 U/L 131 U/L Culture Results Microbiology Date/Time Source Procedure Growth Status 07/21/17 02:30 Stool Stool Stool Occult Blood (EVELIA) - Final HEMOCCULT POSITIVE Complete Imaging Studies Last 24 hours Impressions Modified Barium Swallow 07/21/17 0000 Signed Impressions: Service Date/Time: Friday, July 21, 2017 00:00 - CONCLUSION: Swallowing mechanism remains labored. Minimal vestibular penetration without aspiration due to rapid swallowing through a straw. Patient was unable to naturally swallow a barium tablet. Kendall Marti MD Administered Medications Medications (Trade) Dose Ordered Sig/Sunil Route PRN Reason Start Time Stop Time Status Last Admin Dose Admin Sodium Chloride (NS Flush) 2 ml UNSCH PRN IV FLUSH FLUSH AFTER USING IV ACCESS 06/24/17 20:30 07/20/17 20:36 Sodium Chloride (NS Flush) 2 ml BID IV FLUSH 06/24/17 21:00 07/20/17 20:36 Ondansetron HCl (Zofran Inj) 4 mg Q6H PRN IV PUSH NAUSEA OR VOMITING 06/24/17 20:30 07/03/17 17:30 Chlorhexidine Gluconate (Chlorhexidine 2% Cloth) Taper DAILY@04 TOP 06/25/17 04:00 06/21/18 03:59 07/01/17 04:00 Senna/Docusate Sodium (Olesya-Colace) 1 tab BID PO 06/24/17 21:00 07/21/17 09:50 Bisacodyl (Dulcolax Supp) 10 mg DAILY PRN RECTAL SEVERE CONSITIPATION 06/24/17 20:30 06/28/17 08:31 Amiodarone HCl (Cordarone) 200 mg DAILY PO 06/25/17 09:00 07/21/17 09:50 Methadone HCl (Methadone Liq) 2.5 mg BID PO 06/24/17 21:00 07/18/17 10:12 Dextrose (D50w (Vial) Inj) 50 ml UNSCH PRN IV PUSH HYPOGLYCEMIA-SEE COMMENTS 06/24/17 20:30 06/24/17 21:15 Sodium Chloride (NS Flush) DAILY IV FLUSH 06/25/17 09:00 07/21/17 09:48 Sodium Chloride (NS Flush) UNSCH PRN IV FLUSH SEE PROTOCOL 06/24/17 21:30 07/20/17 20:36 Morphine Sulfate (Morphine Inj) 2 mg Q3H PRN IV PUSH pain 1-5 06/24/17 23:15 07/12/17 18:23 Morphine Sulfate (Morphine Inj) 4 mg Q3H PRN IV PUSH pain 6-10 06/24/17 23:15 07/06/17 02:26 Bisacodyl (Dulcolax Ec) 10 mg HS PO 06/26/17 21:00 07/20/17 20:31 Sennosides (Senna Liq) 8.8 mg DAILY PO 06/28/17 09:00 07/20/17 08:48 Albuterol/ Ipratropium (Duoneb Neb) 1 ampule Q2HR NEB PRN NEB SHORTNESS OF BREATH 06/29/17 08:30 07/13/17 20:43 Insulin Human Regular (NovoLIN R SUPPLEMENTAL SCALE) 1 ACHS SQ 07/02/17 12:00 07/19/17 17:18 Albuterol/ Ipratropium (Duoneb Neb) 1 ampule Q4HR NEB PRN INH SHORTNESS OF BREATH 07/05/17 17:00 07/06/17 20:26 Sucralfate (Carafate Liq) 1 gm ACHS PO 07/09/17 08:00 07/19/17 16:44 Multi-Ingredient Mouthwash/Gargle (Magic Mouthwash Adult Liq) 5 ml QID SWISH-SWAL 07/09/17 09:00 07/19/17 17:17 Nystatin (Mycostatin Liq) 5 ml QID SWISH-SWAL 07/09/17 13:00 07/20/17 20:35 Nystatin (Mycostatin Oint) 1 applic Q8HR TOPICAL 07/09/17 15:15 07/21/17 07:20 Miconazole Nitrate (Micatin 2% Cream) 1 applic Q12HR TOPICAL 07/09/17 21:00 07/20/17 20:38 Imatinib Mesylate (Gleevec) 400 mg HS PO 07/11/17 21:00 Future hold 07/20/17 20:31 Lactobacillus Acidophilus (Lactinex) 1 tab TID PO 07/11/17 18:00 07/21/17 09:50 Lidocaine HCl (Xylocaine 2% Viscous) 15 ml Q4H PRN SWISH-SPIT prior to taking meds 07/12/17 10:15 07/15/17 08:26 Pantoprazole Sodium (Protonix) 40 mg Q12HR PO 07/12/17 21:00 07/21/17 09:50 Prednisone (Deltasone) 10 mg DAILY PO 07/17/17 09:00 07/21/17 09:50 Bacitracin (Baciguent Oint) 1 applic Q12HR TOPICAL 07/18/17 11:30 07/20/17 20:39 Objective Remarks GENERAL: chronically ill appearing male supine in bed resting. SKIN: Warm and dry. HEAD: Normocephalic. EYES: No injection or drainage. NECK: Supple, trachea midline. CARDIOVASCULAR: Regular rate and rhythm RESPIRATORY: anterior yates with occasional rhonchi GASTROINTESTINAL: Abdomen soft, non-tender, nondistended. EXTREMITIES: No cyanosis Assessment/Plan Problem List: (1) Dysphagia ICD Codes: R13.10 - Dysphagia, unspecified Plan: 07/21: going for EGD today --on oral Nystatin + diflucan --?HSV (2) Anemia ICD Codes: D64.9 - Anemia, unspecified Plan: 07/21/17: hgb 9.5. monitor CBC. no transfusion needed at present. (3) CML (chronic myelocytic leukemia) ICD Codes: C92.10 - Chronic myeloid leukemia, BCR/ABL-positive, not having achieved remission Status: Chronic Plan: -- Was originally diagnosed in 1998 -- Gleevec resumed on 07/11/17 as platelets greater than 100k. (4) GI bleed ICD Codes: K92.2 - Gastrointestinal hemorrhage, unspecified Status: Acute Plan: --GI signed off on 07/15 --had incomplete colonoscopy on 07/14 which showed hemorrhoids. --Bleeding scan,07/10--> no active GI bleeding. Assessment 82 y/o male with history of CML. hematology consulted for pancytopenia Attending Statement The exam, history, and the medical decision-making described in the above note were completed with the assistance of the mid-level provider. I reviewed and agree with the findings presented. I attest that I had a [id number] encounter with the patient on the same day, and personally performed and documented my assessment and findings in the medical record. No new c/o for repeat EGD today. cardio input noted. Mira Zepeda Jul 21, 2017 15:24 Fabrice Patel MD Jul 21, 2017 17:17
[2017-07-21] MEDS ORDERED: DO NOT ADM ANY ANTICOAGULANT DRUGS PRN (16:30)
[2017-07-21] MEDS ORDERED: BENZOCAINE 20% ORAL SPR 60 ML CAN OROPHARYNG ONE (16:53)
--- NOTE | 2017-07-21 17:47 | HHI.NPPN ---
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 I was called to see the patient because of elevated BUN and creatinine. Additional Remarks Patient is sleepy but arousable, seen after the EGD. Objective Data Data 07/21/17 07/22/17 19:00 07:00 Intake Total 440 ml Output Total 2 ml Balance 438 ml Intake Oral 240 ml Other 200 ml Output Urine Total 2 ml # Bowel Movements 1 Vital Signs Date Time Temp Pulse Resp B/P (MAP) Pulse Ox O2 Delivery O2 Flow Rate FiO2 07/21/17 16:36 Nasal Cannula 2.00 07/21/17 11:00 90 18 96/56 (69) 98 07/21/17 08:00 97.7 86 16 101/56 (71) 96 07/21/17 08:00 96 Nasal Cannula 2.00 07/21/17 04:05 94 07/21/17 03:43 98.1 96 18 94/65 (75) 98 07/21/17 00:18 99.7 95 16 130/59 (82) 99 07/21/17 00:03 93 07/20/17 20:25 87 07/20/17 20:04 98.9 91 16 114/52 (72) 98 07/20/17 20:00 Nasal Cannula 2.00 -: 07/21/17 0235 07/21/17 0235 Microbiology 07/21/17 Stool Occult Blood (EVELIA) - Final, Complete HEMOCCULT POSITIVE Physical Exam General Appearance: No Acute Distress, Comfortable Eyes Eye Exam: Pupils Equal Throat Throat Exam: Oral Mucosa Nat[place] & Moist Neck Neck Exam: Neck Supple Pulmonary Resp Exam: Breath Sounds Equal, No Distress, Rhonchi, Sputum, Decreased Bases Cardiology CV Exam: Regular, Normal Sinus Rhythm Gastrointestinal/Abdomen GI Exam: Soft, Non-Tender, Bowel Sounds Present Extremeties Extremities Exam: Moderate Edema, Pitting Edema, Dependent Edema Neurologic Neuro Exam: Alert, Awake, Oriented Psychiatric Psych Exam: Appropriate Responses Assessment/Plan Assessment Summary: LEESA/Acute Renal Failure, Hypertension, CKD Stage IV Problem List: (1) COPD (chronic obstructive pulmonary disease) ICD Codes: J44.9 - Chronic obstructive pulmonary disease, unspecified Status: Chronic (2) Bronchitis ICD Codes: J40 - Bronchitis, not specified as acute or chronic Status: Acute (3) HTN (hypertension) ICD Codes: I10 - Essential (primary) hypertension Status: Chronic (4) Diabetes mellitus ICD Codes: E11.9 - Type 2 diabetes mellitus without complications (5) Acute respiratory failure ICD Codes: J96.00 - Acute respiratory failure, unspecified whether with hypoxia or hypercapnia (6) Severe sepsis ICD Codes: A41.9 - Sepsis, unspecified organism; R65.20 - Severe sepsis without septic shock Status: Acute (7) Acute kidney injury ICD Codes: N17.9 - Acute kidney failure, unspecified Status: Acute Plan Patient has been non oliguric. Has Chronic kidney disease, possibly stage 3- 4. Hematology following hx of CML and Pancytopenia ID is following. Lasix stopped. Creatinine is now 1.5, possibly close to his baseline. Avoid Nephrotoxins. Problem Qualifiers (1) Diabetes mellitus: Qualified Codes: E11.8 - Type 2 diabetes mellitus with unspecified complications (2) Acute respiratory failure: Qualified Codes: J96.02 - Acute respiratory failure with hypercapnia Bismark Woods MD Jul 21, 2017 17:47
--- NOTE | 2017-07-21 18:42 | PD.PROCEDR ---
GI Procedure REFERRING PHYSICIAN Dr. Linares PROCEDURE PERFORMED EGD with biopsy INDICATION FOR PROCEDURE Dysphagia PROCEDURE: The procedure, risks and benefits were discussed with Mr. Tabares and informed consent was obtained. Anesthesia sedated him with Diprivan. He was placed in the left lateral decubitus position. EGD: The Pentax videoscope was introduced through the oropharynx and advanced to the second portion of the duodenum under direct visualization. Retroflexion was performed in the stomach. FINDINGS: The esophagus this appeared to be unremarkable at this point no ulcers or erosions The stomach there was patchy erythema in the antrum but no ulcerations or erosions biopsies were taken from the antrum for further evaluation The duodenum this was normal Of note on oral inspection the patient was noted to have an ulcer on his tongue ESTIMATED BLOOD LOSS: None SPECIMENS REMOVED: Antral biopsy COMPLICATIONS: None IMPRESSION: Gastritis Oral ulcer PLAN: Await biopsies Continue PPI Kraig Garcia MD Jul 21, 2017 18:42
--- NOTE | 2017-07-21 19:04 | EKG ---
Date Performed: 07/21/2017 Time Performed: 03:14:08 PTAGE: 82 years EKG: Sinus rhythm Left axis deviation IV conduction defect Lateral T wave changes are nonspecific Abnormal ECG PREVIOUS TRACING : 07/20/2017 16.39 Compared to prior tracing no significant change DOCTOR: Abdiel Acevedo Interpretating Date/Time 07/21/2017 19:03:46
--- NOTE | 2017-07-21 19:04 | EKG ---
Date Performed: 07/20/2017 Time Performed: 16:39:50 PTAGE: 82 years EKG: Sinus rhythm Left axis deviation IV conduction defect Possible inferior infarct - age undetermined Possible anter oseptal infarct - age undetermined Lateral ST-T changes are nonspecific Abnormal ECG PREVIOUS TRACING : 07/13/2017 10.59 Compared to prior tracing no significant change DOCTOR: Abdiel Acevedo Interpretating Date/Time 07/21/2017 19:02:41
[2017-07-21] MEDS: IMATINIB MESYLATE 100 MG TAB PO SCH (22:28)
[2017-07-21] MEDS: BISACODYL EC 5 MG TABEC PO SCH (22:32)
[2017-07-22] VITALS (10 sets, daily range): BP systolic 103–122; BP diastolic 51–78; PULSE 78–95; RESP 20; TEMP 97.8–98.7; O2SAT 97–100
[2017-07-22] MEDS: CHLORHEXIDINE GLUCONATE 2 % 1 PACK (2 CLOTHS) TOP SCH (03:23)
[2017-07-22] MEDS: NYSTATIN 100,000 U/GM OINT 15 GM TUBE TOPICAL SCH ×3 (04:47→21:10)
[2017-07-22 05:10] LABS: AUTOMATED NEUTROPHIL # 5.4 TH/MM3 (1.8-7.7); BASOPHIL % 0.4 % (0.0-2.0); EOSINOPHIL % 0.2 % (0.0-4.0); HEMATOCRIT 27.2 % (39.0-51.0); HEMOGLOBIN 9.3 GM/DL (13.0-17.0); LYMPH % 28.8 % (9.0-44.0); LYMPHOCYTE # 2.3 TH/MM3 (1.0-4.8); MEAN CELL VOLUME 89.6 FL (80.0-100.0); MEAN CORPUSCULAR HEMOGLOBIN 30.6 PG (27.0-34.0); MEAN CORPUSCULAR HGB CONC 34.1 % (32.0-36.0); MEAN PLATELET VOLUME 8.7 FL (7.0-11.0); MONO % 2.8 % (0.0-8.0); MONOCYTE # 0.2 TH/MM3 (0-0.9); NEUT % 67.8 % (16.0-70.0); PLATELET COUNT 66 TH/MM3 (150-450); RED BLOOD COUNT 3.03 MIL/MM3 (4.50-5.90); RED CELL DISTRIBUTION WIDTH 18.7 % (11.6-17.2)
[2017-07-22 05:33] LABS: BICARBONATE 30.9 MEQ/L (21.0-32.0); CALCIUM 7.1 MG/DL (8.5-10.1); CREATININE 1.57 MG/DL (0.60-1.30)
[2017-07-22 05:45] LABS: CALCIUM-PROTEIN CORRECTED 8.5 MG/DL (8.5-10.1); TOTAL PROTEIN 4.6 GM/DL (6.4-8.2)
[2017-07-22 07:32] LABS: BANDS 15 % (0-6); LYMPHOCYTES 35 % (9-44); MONOCYTES 1 % (0-8); POLYS (SEG NEUTROPHILS) 48 % (16-70)
[2017-07-22 07:34] LABS: TOXIC GRANULATION 1+ (NORMAL)
[2017-07-22] MEDS: INSULIN NovoLIN REGULAR SUPPLEMENTAL SCALE SQ SCH ×4 (08:00→21:23)
[2017-07-22] MEDS: LACTOBACILLUS ACIDOPHILUS TAB PO SCH ×3 (09:00→17:04)
[2017-07-22] MEDS: DOCUSATE SODIUM 50 MG/SENNA 8.6 MG TAB PO SCH ×2 (09:00→21:08)
[2017-07-22] MEDS: SENNOSIDES SYRUP 8.8 MG/5 ML CUP PO SCH (09:00)
[2017-07-22] MEDS: SODIUM CHLORIDE 0.9% FLUSH 10 ML FLUSH IV FLUSH SCH ×3 (09:00→21:08)
[2017-07-22] MEDS: MICONAZOLE NITRATE 2% CREAM 15 GM TOPICAL SCH ×2 (09:00→21:08)
[2017-07-22] MEDS: NYSTAT/DIPHENHY/LIDO MOUTHWASH (Adult) 120ML SWISH-SWAL SCH ×4 (09:00→21:09)
[2017-07-22] MEDS: NYSTATIN SUSP 500,000 U/5 ML CUP SWISH-SWAL SCH (10:08)
[2017-07-22] MEDS: SUCRALFATE 1 GM/10 ML CUP PO SCH (10:08)
[2017-07-22] MEDS: PANTOPRAZOLE SOD 40 MG DELAYED RELEASE TAB PO SCH ×2 (10:08→21:09)
[2017-07-22] MEDS: METHADONE HCL 10 MG/10 ML ORAL SOLUTION PO SCH ×2 (10:08→21:09)
[2017-07-22] MEDS: predniSONE 10 MG TAB PO SCH (10:08)
[2017-07-22] MEDS: AMIODARONE 200 MG TAB PO SCH (10:17)
[2017-07-22] MEDS: BACITRACIN TOP OINT 15 GM TUBE TOPICAL SCH ×2 (10:19→21:09)
--- NOTE | 2017-07-22 10:36 | HHI.PR ---
Subjective Remarks in no acute distress. but says that ' he's not feeling good today'. no chest pain. no abdominal pain or nausea. seen with the RN at the bedside. Objective Vitals Vital Signs Date Time Temp Pulse Resp B/P (MAP) Pulse Ox O2 Delivery O2 Flow Rate FiO2 07/22/17 09:07 98.1 91 20 106/60 (75) 97 07/22/17 07:52 Nasal Cannula 3.00 07/22/17 07:52 91 07/22/17 04:53 97.8 87 20 116/69 (85) 97 07/22/17 00:23 98.7 81 20 122/51 (74) 100 07/22/17 00:00 78 07/21/17 21:50 98.1 78 17 147/80 (102) 100 07/21/17 20:00 79 07/21/17 20:00 Nasal Cannula 3.00 21 07/21/17 19:04 Nasal Cannula 3.00 07/21/17 17:30 83 16 109/51 (70) 95 07/21/17 17:15 98.1 87 17 112/70 (84) 99 Nasal Cannula 3 07/21/17 17:00 79 17 106/62 (77) 99 Nasal Cannula 3 07/21/17 16:45 81 17 97/62 (74) 99 Nasal Cannula 3 07/21/17 16:36 Nasal Cannula 2.00 07/21/17 16:30 98.1 80 17 114/58 (76) 99 Nasal Cannula 3 07/21/17 11:00 90 18 96/56 (69) 98 I/O 07/21/17 07/21/17 07/21/17 07/22/17 07/22/17 07/22/17 07:00 15:00 23:00 07:00 15:00 23:00 Intake Total 240 ml 640 ml Output Total 2 ml 325 ml Balance 238 ml 315 ml Intake Oral 240 ml 240 ml Other 400 ml Output Urine Total 2 ml 325 ml # Voids 1 # Bowel Movements 1 1 Result Diagram: 07/22/17 0450 07/22/17 0450 Imaging Last Impressions Modified Barium Swallow 07/21/17 0000 Signed Impressions: Service Date/Time: Friday, July 21, 2017 00:00 - CONCLUSION: Swallowing mechanism remains labored. Minimal vestibular penetration without aspiration due to rapid swallowing through a straw. Patient was unable to naturally swallow a barium tablet. Kendall Marti MD Chest X-Ray 07/19/17 0000 Signed Impressions: Service Date/Time: Wednesday, July 19, 2017 03:32 - CONCLUSION: Left basilar airspace disease suspected. Central venous catheter placement as above. Braulio Sellers MD Upper Extremity Ultrasound 07/18/17 0000 Signed Impressions: Service Date/Time: Tuesday, July 18, 2017 13:24 - CONCLUSION: 1. Occlusive thrombus within the proximal and mid aspect of the left cephalic vein. 2. The remaining veins of both upper extremities are patent. Alli Cohen MD GI Bleed Scan Nuclear Medicine 07/10/17 0000 Signed Impressions: Service Date/Time: June 16:42 - CONCLUSION: No active gastrointestinal bleeding Alli Teague MD Abdomen X-Ray 07/08/17 0600 Signed Impressions: Service Date/Time: Saturday, July 08, 2017 04:09 - CONCLUSION: Negative KUB. Alli Schroeder MD Abdomen/Pelvis CT 07/05/17 0000 Signed Impressions: Service Date/Time: Wednesday, July 05, 2017 15:06 - CONCLUSION: 1. Left lower lobe consolidation. 2. Dilated loops of proximal and mid small bowel. 3. Stable distal abdominal aortic aneurysm. 4. Stable sigmoid diverticulosis without evidence of diverticulitis. David Gutierrez MD Hepatobiliary Scan Nuclear Medicine 06/25/17 0000 Signed Impressions: Service Date/Time: Sunday, June 25, 2017 10:43 - CONCLUSION: 1. No evidence for cystic duct obstruction. 2. Biliary enteric reflux. Braulio Sellers MD Objective Remarks GENERAL: elderly male, in no apparent distress. CARDIOVASCULAR: Regular rate and regular rhythm without murmurs, gallops, or rubs. RESPIRATORY: Clear to auscultation. Breath sounds equal bilaterally. No wheezes , rales, or rhonchi. GASTROINTESTINAL: Abdomen soft, non-tender, nondistended. Normal, active bowel sounds MUSCULOSKELETAL: Extremities without clubbing, cyanosis, or edema. NEURO: Alert & Oriented x4 to person, place, time, situation. Moves all ext x4 Procedures Echo 06/26/2017 Mildly dilated left ventricle. The left ventricular systolic function is mildly reduced with an estimated ejection fraction in the range of 45- 50%. Wall thickness is normal. A pacemaker wire is noted. There is a pacemaker wire present in the right atrial cavity. [id number] mitral valve regurgitation. There is trace tricuspid valve regurgitation. Medications and IVs Inpatient Medications Acetaminophen (Tylenol) 650 mg Q4H PRN PO SEE LABEL COMMENTS Last administered on 07/19/17 13:57; Start 07/19/17 at 08:00; Stop 07/19/17 at 13:58; Status DC Albuterol Sulfate (Albuterol Neb) 2.5 mg Q2HR NEB PRN INH SOB/WHEEZING Last administered on 06/29/17 08:00; Start 06/24/17 at 20:30; Stop 06/29/17 at 08 :40; Status DC Albuterol/ Ipratropium (Duoneb Neb) 1 ampule Q4HR NEB PRN INH SHORTNESS OF BREATH Last administered on 07/06/17 20:26; Start 07/05/17 at 17:00 Amiodarone HCl (Cordarone) 200 mg DAILY PO Last administered on 07/21/17 09: 50; Start 06/25/17 at 09:00 Bacitracin (Baciguent Oint) 1 applic Q12HR TOPICAL Last administered on 22:30; Start 07/18/17 at 11:30 Benzocaine (Hurricaine 20% Oral Spr) 1 spray ONCE ONCE OROPHARYNG Last administered on 07/21/17 16:53; Start 07/21/17 at 16:53; Stop 07/21/17 at 16 :54; Status DC Bisacodyl (Dulcolax Ec) 20 mg ONCE ONCE PO Last administered on 07/13/17 16: 37; Start 07/13/17 at 15:15; Stop 07/13/17 at 15:16; Status DC Bisacodyl (Dulcolax Supp) 10 mg DAILY PRN RECTAL SEVERE CONSITIPATION Last administered on 06/28/17 08:31; Start 06/24/17 at 20:30 Chlorhexidine Gluconate (Chlorhexidine 2% Cloth) 3 pack RENEWALS REPRESENTATIVE PRN TOPICAL SEE LABEL COMMENTS; Start 07/13/17 at 20:45; Stop 07/16/17 at 20:44; Status DC Dextrose (D50w (Vial) Inj) 50 ml UNSCH PRN IV PUSH HYPOGLYCEMIA-SEE COMMENTS Last administered on 06/24/17 21:15; Start 06/24/17 at 20:30 Dextrose/Sodium Chloride 1,000 ml @ 75 mls/hr [id number] IV Last administered on 06/29/17 00:12; Start 06/28/17 at 08:45; Stop 06/29/17 at 09:55; Status DC Diatrizoate Meglum/ Diatrizoate Sod ( Gastrolidia Liq) 18 ml ONCE ONCE PO Last administered on 07/05/17 10:15; Start 07/05/17 at 10:15; Stop 07/05/17 at 10:16; Status DC Diphenhydramine HCl (Benadryl) 25 mg Q4H PRN PO SEE LABEL COMMENTS Last administered on 07/19/17 13:57; Start 07/19/17 at 08:00; Stop 07/19/17 at 13:58 ; Status DC Fluconazole (Diflucan) 100 mg DAILY PO Last administered on 07/16/17 09:17; Start 07/11/17 at 18:45; Stop 07/16/17 at 18:44; Status DC Furosemide (Lasix Inj) 20 mg UNSCH X1 IV PUSH ; Start 07/19/17 at 11:15; Stop 07/19/17 at 15:00; Status DC Glucagon (Glucagon Inj) 1 mg UNSCH PRN OTHER HYPOGLYCEMIA-SEE COMMENTS; Start 06/24/17 at 20:30 Heparin Sodium (Porcine) (Heparin Inj) 2,500 units UNSCH PRN IV PUSH APTT 25 TO 39; Start 07/21/17 at 01:45; Stop 07/21/17 at 01:45; Status DC Heparin Sodium/ Dextrose 250 ml @ 10 mls/hr TITRATE PRN IV Coagulation Management; Start 07/20/17 at 19:45; Stop 07/20/17 at 21:18; Status DC Hydrocortisone Sodium Succinate (SoluCORTEF INJ) 50 mg Q6H IV PUSH Last administered on 07/02/17 09:44; Start 06/25/17 at 15:00; Stop 07/02/17 at 12 :09; Status DC Imatinib Mesylate (Gleevec) 400 mg HS PO Last administered on 07/21/17 22:28 ; Start 07/11/17 at 21:00; Status Future Hold Influenza Virus Vaccine (Flu (Quadrivalent) Vaccine Inj) 0.5 ml ONCE ONCE IM ; Start 06/26/17 at 10:00; Stop 06/26/17 at 10:01; Status DC Insulin Human Regular (NovoLIN R SUPPLEMENTAL SCALE) 1 ACHS SQ Last administered on 07/19/17 17:18; Start 07/02/17 at 12:00 Lactated Ringer's 1,000 ml @ 30 mls/hr Q24H PRN IV SEE LABEL COMMENTS; Start 07/13/17 at 20:45; Stop 07/16/17 at 20:44; Status DC Lactobacillus Acidophilus (Lactinex) 1 tab TID PO Last administered on 09:50; Start 07/11/17 at 18:00 Lactulose (Lactulose Liq) 30 ml BID PO Last administered on 07/09/17 09:44; Start 07/04/17 at 09:00; Stop 07/10/17 at 14:23; Status DC Levofloxacin (Levaquin) 750 mg DAILY PO Last administered on 07/11/17 23:25; Start 07/11/17 at 18:45; Stop 07/12/17 at 10:01; Status DC Levofloxacin/ Dextrose 150 ml @ 100 mls/hr Q48H IV Last administered on 23:24; Start 07/13/17 at 23:00; Stop 07/18/17 at 22:59; Status DC Lidocaine HCl (Xylocaine 2% Viscous) 15 ml Q4H PRN SWISH-SPIT prior to taking meds Last administered on 07/15/17 08:26; Start 07/12/17 at 10:15 Lidocaine/ Diphenhydr/Alum/ Mg/Simeth (Magic Mouthwash Pediatric/Adult Liq) 5 ml ACHS SWISH-SWAL ; Start 07/09/17 at 12:00; Stop 07/09/17 at 12:05; Status DC Magnesium Hydroxide (Milk Of Magnesia Liq) 30 ml DAILY PRN PO mild constipation ; Start 06/26/17 at 15:45; Stop 07/04/17 at 08:39; Status DC Magnesium Citrate (Citroma Liq) 300 ml ONCE ONCE PO Last administered on 16:36; Start 07/13/17 at 15:15; Stop 07/13/17 at 15:16; Status DC Methadone HCl (Methadone Liq) 2.5 mg BID PO Last administered on 07/18/17 10: 12; Start 06/24/17 at 21:00 Methylnaltrexone Only (Relistor Inj) 6 mg ONCE ONCE SQ Last administered on 07/04/17 11:15; Start 07/04/17 at 10:45; Stop 07/04/17 at 10:46; Status DC Methylprednisolone Sodium Succinate (SoluMEDROL INJ) 40 mg Q12HR IV PUSH Last administered on 07/12/17 09:21; Start 07/06/17 at 21:00; Stop 07/12/17 at 10: 11; Status DC Miconazole Nitrate (Micatin 2% Cream) 1 applic Q12HR TOPICAL Last administered on 07/21/17 22:30; Start 07/09/17 at 21:00 Miscellaneous Information ALL NURSING DEPARTME... UNSCH PRN .XX SEE LABEL COMMENTS; Start 07/21/17 at 16:30; Stop 07/22/17 at 16:29 Morphine Sulfate (Morphine Inj) 4 mg Q3H PRN IV PUSH pain 6-10 Last administered on 07/06/17 02:26; Start 06/24/17 at 23:15 Multi-Ingredient Mouthwash/Gargle (Magic Mouthwash Adult Liq) 5 ml QID SWISH- SWAL Last administered on 07/19/17 17:17; Start 07/09/17 at 09:00 Norepinephrine Bitartrate 4 mg/ Sodium Chloride 250 ml @ 7.5 mls/hr TITRATE PRN IV Blood pressure management Last administered on 06/24/17 21:27; Start 06/24/17 at 21:00; Stop 06/27/17 at 09:45; Status DC Nystatin (Mycostatin Liq) 5 ml QID SWISH-SWAL Last administered on 07/20/17 20:35; Start 07/09/17 at 13:00 Nystatin (Mycostatin Oint) 1 applic Q8HR TOPICAL Last administered on 04:47; Start 07/09/17 at 15:15 Ondansetron HCl (Zofran Inj) 4 mg Q6H PRN IV PUSH NAUSEA OR VOMITING Last administered on 07/03/17 17:30; Start 06/24/17 at 20:30 Pantoprazole Sodium (Protonix Inj) 40 mg DAILY IV PUSH Last administered on 08:55; Start 06/25/17 at 09:00; Stop 06/30/17 at 14:05; Status DC Pantoprazole Sodium (Protonix) 40 mg Q12HR PO Last administered on 07/21/17 22:32; Start 07/12/17 at 21:00 Piperacillin Sod/ Tazobactam Sod 50 ml @ 200 mls/hr Q6HR IV Last administered on 07/11/17 18:00; Start 07/06/17 at 18:00; Stop 07/11/17 at 18:38; Status DC Polyethylene Glycol/ Electrolytes (Colyte Liq) 4,000 ml ONCE ONCE PO ; Start 07/14/17 at 10:30; Stop 07/14/17 at 10:40; Status DC Potassium Chloride 100 ml @ 50 mls/hr ONCE ONCE IV Last administered on 07/05 10:00; Start 07/05/17 at 10:00; Stop 07/05/17 at 11:59; Status DC Povidone Iodine (Betadine 5% Antisepsis Kit) 1 applic RENEWALS REPRESENTATIVE PRN EACH NARE SEE LABEL COMMENTS; Start 07/13/17 at 20:45; Stop 07/16/17 at 20:44; Status DC Prednisone (Deltasone) 10 mg DAILY PO Last administered on 07/21/17 09:50; Start 07/17/17 at 09:00 Senna/Docusate Sodium (Olesya-Colace) 1 tab BID PO ; Start 06/24/17 at 21:00; Stop 06/24/17 at 21:16; Status DC Sennosides (Senna Liq) 8.8 mg DAILY PO Last administered on 07/20/17 08:48; Start 06/28/17 at 09:00 Sennosides (Senokot) 17.2 mg Q12H PRN PO Moderate constipation; Start at 20:30 Sodium Bicarbonate 75 meq/Dextrose/ Sodium Chloride 1,075 ml @ 75 mls/hr [id number] IV Last administered on 07/01/17 04:40; Start 06/29/17 at 11:00; Stop 07/02/17 at 10:39; Status DC Sodium Biphosphate/ Sodium Phosphate (Fleets Enema (Adult)) 133 ml UNSCH PRN RECTAL MOST SEVERE CONSTIPATION; Start 06/26/17 at 15:45; Stop 07/04/17 at 08: 39; Status DC Sodium Chloride 250 ml @ 15 mls/hr ONCE ONCE IV Last administered on 11:00; Start 07/19/17 at 11:15; Stop 07/20/17 at 03:54; Status DC Sodium Chloride (NS Flush) UNSCH PRN IV FLUSH SEE PROTOCOL Last administered on 07/20/17 20:36; Start 06/24/17 at 21:30 Sucralfate (Carafate Liq) 1 gm ACHS PO Last administered on 07/19/17 16:44; Start 07/09/17 at 08:00 Terbutaline Sulfate (Brethine Inj) 1 mg UNSCH PRN SQ For Extravasation; Start 06/24/17 at 21:00 Vancomycin HCl 1000 mg/Sodium Chloride 250 ml @ 250 mls/hr ONCE STAT IV Last administered on 06/24/17 20:21; Start 06/24/17 at 18:58; Stop 06/24/17 at 19 :57; Status DC A/P Problem List: (1) Diverticulosis ICD Code: K57.90 - Diverticulosis of intestine, part unspecified, without perforation or abscess without bleeding (2) ALEJANDRA (obstructive sleep apnea) ICD Code: G47.33 - Obstructive sleep apnea (adult) (pediatric) Status: Chronic (3) Acute respiratory failure ICD Code: J96.00 - Acute respiratory failure, unspecified whether with hypoxia or hypercapnia (4) Acute kidney injury ICD Code: N17.9 - Acute kidney failure, unspecified Status: Acute (5) Thrombocytopenia ICD Code: D69.6 - Thrombocytopenia, unspecified Status: Acute (6) Macrocytic anemia ICD Code: D53.9 - Nutritional anemia, unspecified Status: Chronic (7) Diabetes mellitus ICD Code: E11.9 - Type 2 diabetes mellitus without complications (8) Chronic systolic heart failure ICD Code: I50.22 - Chronic systolic (congestive) heart failure Status: Chronic (9) Sepsis ICD Code: A41.9 - Sepsis, unspecified organism Status: Acute (10) GI bleed ICD Code: K92.2 - Gastrointestinal hemorrhage, unspecified Status: Acute (11) Bacteremia due to Klebsiella pneumoniae ICD Code: R78.81 - Bacteremia Status: Acute (12) Ileus ICD Code: K56.7 - Ileus, unspecified Status: Resolved (13) Candidiasis of mouth and esophagus ICD Code: B37.81 - Candidal esophagitis; B37.0 - Candidal stomatitis Status: Acute (14) Pneumonia ICD Code: J18.9 - Pneumonia, unspecified organism Status: Acute (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, BCR/ABL-positive, not having achieved remission Status: Chronic (16) Pancytopenia ICD Code: D61.818 - Other pancytopenia Status: Chronic (17) COPD (chronic obstructive pulmonary disease) ICD Code: J44.9 - Chronic obstructive pulmonary disease, unspecified Status: Chronic (18) Acute renal failure ICD Code: N17.9 - Acute kidney failure, unspecified Status: Acute (19) Iron deficiency anemia ICD Code: D50.9 - Iron deficiency anemia, unspecified Status: Acute (20) AICD (automatic cardioverter/defibrillator) present ICD Code: Z95.810 - Presence of automatic (implantable) cardiac defibrillator Status: Acute (21) Anemia associated with acute blood loss ICD Code: D62 - Acute posthemorrhagic anemia Status: Acute (22) Cardiomyopathy ICD Code: I42.9 - Cardiomyopathy, unspecified Status: Chronic (23) Left bundle branch block ICD Code: I44.7 - Left bundle-branch block, unspecified Status: Chronic (24) Paroxysmal ventricular tachycardia ICD Code: I47.2 - Ventricular tachycardia Status: Resolved Assessment and Plan A/P Sepsis, hypotension - resolved. blood cultures 07/06 were positive for Klebsiella pneumoniae, also has a left lower lobe lung consolidation. blood culture 07/08 with staph epidermidis likely contaminant. treated with antibiotic and evaluated by ID. Abdominal pain, Ileus - resolved . Cont. Lactulose, Senna, Pericolace, Dulcolax supp Hospital-acquired pneumonia - stable on 2 L nasal cannula Previous chest x-rays and CT abdomen pelvis did not identify any lung infiltrates. However, abd CT 07/05 did show LLL consolidation. Infectious disease following, finished the course of antibiotic. Repeat cxr 07/13 showed left lower lobe infiltrate. COPD - followed by Dr. Pelaez as outpatient. On prednisone taper. Duo nebs as needed. Chronic pain - cont methadone 2.5 mg twice a day and morphine 2 mg IV every 3 hours when necessary. Oral thrush, and odynophagia Dysphagia sucralfate was ordered by oncology team. on nystatin and magic mouth wash. Status post course of Diflucan per ID. lidocaine swish and spit prior to taking by mouth meds. GI input appreciated. S/p EGD 07/13 showing mild gastritis in the antrum and distal esophagitis - biopsies were negative for CMV/HSV, did show acute and chronic esophagitis, negative for H. pylori had barium swallow. awaiting GI follow-up and recommendations. Hematochezia bleeding scan 07/10 negative. H&H declined 6.12/27. Transfuse 2 units of blood. Give Lasix in between units. EGD 07/13 - mild esophagitis, gastritis cont protonix, monitor H&H Status post colonoscopy on 07/14 showing incomplete prep and internal and external hemorrhoids, patient refused repeat colonoscopy. Patient however with severe dysphagia not able to eat and refusing meds, reconsulted GI Pancytopenia, CML Heme/onc following. Gleevec resumed 07/11 - held yesterday for slightly low platelets which are normal today No anti-coagulation due to pancytopenia. HIT negative. Follow CBC Acute kidney injury. Chronic kidney disease possibly stage 3-4 Creatinine has much improved. Nephrology is following. s/p diuresis. Holding lasix due to hypernatremia -received gentle IV fluids NSat 60 cc/h, stopped as patient with UE edema. Monitor BMP . BMP shows improved creatinine today, BL upper extremity edema. Doppler US to r/o DVT, with superficial DVT no anticoagulation. Hypernatremia improving after holding lasix and on gentle IV fluids and S at 60 and miles per hour. Chronic systolic congestive heart failure Echo from this admission shows ejection fraction 45-50% monitor for any fluid overload, monitor I/O. start PO lasix when sodium improved. elevated troponin cardiology consult appreciated; no interventions at this time. Buttock and leg wounds: wound care following and has made recs, appreciate assistance History of ventricular tachycardia status post AICD. Continue amiodarone. DVT px - SCDs. No anti-coagulation due to thrombocytopenia, hematology recommendations. PT/OT following DO NOT RESUSCITATE status Discharge Planning awaiting GI follow-up and recommendations on dysphagia. Problem Qualifiers (1) Diverticulosis: (2) Acute respiratory failure: Qualified Codes: J96.02 - Acute respiratory failure with hypercapnia (3) Diabetes mellitus: Qualified Codes: E11.8 - Type 2 diabetes mellitus with unspecified complications (4) Pneumonia: Nicolas Howe MD Jul 22, 2017 10:36
--- NOTE | 2017-07-22 11:02 | PD.ONC.PN ---
Subjective Subjective Remarks Afebrile overnight. Patient tired of taking Nystatin and Magic mouthwash. Underwent EGD yesterday which showed only oral ulcer, but not esophageal abnormalities. Objective Data Date Time Temp Pulse Resp B/P (MAP) Pulse Ox O2 Delivery O2 Flow Rate FiO2 07/22/17 09:07 98.1 91 20 106/60 (75) 97 07/22/17 07:52 Nasal Cannula 3.00 07/22/17 07:52 91 07/22/17 04:53 97.8 87 20 116/69 (85) 97 07/22/17 00:23 98.7 81 20 122/51 (74) 100 07/22/17 00:00 78 07/21/17 21:50 98.1 78 17 147/80 (102) 100 07/21/17 20:00 79 07/21/17 20:00 Nasal Cannula 3.00 21 07/21/17 19:04 Nasal Cannula 3.00 07/21/17 17:30 83 16 109/51 (70) 95 07/21/17 17:15 98.1 87 17 112/70 (84) 99 Nasal Cannula 3 07/21/17 17:00 79 17 106/62 (77) 99 Nasal Cannula 3 07/21/17 16:45 81 17 97/62 (74) 99 Nasal Cannula 3 07/21/17 16:36 Nasal Cannula 2.00 07/21/17 16:30 98.1 80 17 114/58 (76) 99 Nasal Cannula 3 07/21/17 11:00 90 18 96/56 (69) 98 Result Diagram: 07/22/17 0450 07/22/17 0450 Laboratory Results Laboratory Tests Test 07/21/17 11:30 07/22/17 04:50 Total Creatine Kinase 131 U/L Troponin I 0.46 NG/ML White Blood Count 8.0 TH/MM3 Red Blood Count 3.03 MIL/MM3 Hemoglobin 9.3 GM/DL Hematocrit 27.2 % Mean Corpuscular Volume 89.6 FL Mean Corpuscular Hemoglobin 30.6 PG Mean Corpuscular Hemoglobin Concent 34.1 % Red Cell Distribution Width 18.7 % Platelet Count 66 TH/MM3 Mean Platelet Volume 8.7 FL Neutrophils (%) (Auto) 67.8 % Lymphocytes (%) (Auto) 28.8 % Monocytes (%) (Auto) 2.8 % Eosinophils (%) (Auto) 0.2 % Basophils (%) (Auto) 0.4 % Neutrophils # (Auto) 5.4 TH/MM3 Lymphocytes # (Auto) 2.3 TH/MM3 Monocytes # (Auto) 0.2 TH/MM3 Eosinophils # (Auto) 0.0 TH/MM3 Basophils # (Auto) 0.0 TH/MM3 CBC Comment AUTO DIFF Differential Total Cells Counted 100 Neutrophils % (Manual) 48 % Band Neutrophils % 15 % Lymphocytes % 35 % Monocytes % 1 % Eosinophils % 1 % Neutrophils # (Manual) 5.0 TH/MM3 Differential Comment FINAL DIFF MANUAL Atypical Lymphocytes % Toxic Granulation 1+ Platelet Estimate LOW Platelet Morphology Comment NORMAL Blood Urea Nitrogen 23 MG/DL Creatinine 1.57 MG/DL Random Glucose 77 MG/DL Total Protein 4.6 GM/DL Calcium Level 7.1 MG/DL Sodium Level 145 MEQ/L Potassium Level 3.6 MEQ/L Chloride Level 109 MEQ/L Carbon Dioxide Level 30.9 MEQ/L Anion Gap 5 MEQ/L Estimat Glomerular Filtration Rate 43 ML/MIN Protein Corrected Calcium 8.5 MG/DL Culture Results Microbiology Date/Time Source Procedure Growth Status 07/21/17 02:30 Stool Stool Stool Occult Blood (EVELIA) - Final HEMOCCULT POSITIVE Complete Administered Medications Medications (Trade) Dose Ordered Sig/Sunil Route PRN Reason Start Time Stop Time Status Last Admin Dose Admin Sodium Chloride (NS Flush) 2 ml UNSCH PRN IV FLUSH FLUSH AFTER USING IV ACCESS 06/24/17 20:30 07/20/17 20:36 Sodium Chloride (NS Flush) 2 ml BID IV FLUSH 06/24/17 21:00 07/21/17 22:33 Ondansetron HCl (Zofran Inj) 4 mg Q6H PRN IV PUSH NAUSEA OR VOMITING 06/24/17 20:30 07/03/17 17:30 Chlorhexidine Gluconate (Chlorhexidine 2% Cloth) Taper DAILY@04 TOP 06/25/17 04:00 06/21/18 03:59 07/01/17 04:00 Senna/Docusate Sodium (Olesya-Colace) 1 tab BID PO 06/24/17 21:00 07/21/17 09:50 Bisacodyl (Dulcolax Supp) 10 mg DAILY PRN RECTAL SEVERE CONSITIPATION 06/24/17 20:30 11/18/17 08:31 Amiodarone HCl (Cordarone) 200 mg DAILY PO 06/25/17 09:00 07/22/17 10:17 Methadone HCl (Methadone Liq) 2.5 mg BID PO 06/24/17 21:00 07/22/17 10:08 Dextrose (D50w (Vial) Inj) 50 ml UNSCH PRN IV PUSH HYPOGLYCEMIA-SEE COMMENTS 06/24/17 20:30 06/24/17 21:15 Sodium Chloride (NS Flush) DAILY IV FLUSH 06/25/17 09:00 07/21/17 09:48 Sodium Chloride (NS Flush) UNSCH PRN IV FLUSH SEE PROTOCOL 06/24/17 21:30 07/20/17 20:36 Morphine Sulfate (Morphine Inj) 2 mg Q3H PRN IV PUSH pain 1-5 06/24/17 23:15 07/12/17 18:23 Morphine Sulfate (Morphine Inj) 4 mg Q3H PRN IV PUSH pain 6-10 06/24/17 23:15 07/06/17 02:26 Bisacodyl (Dulcolax Ec) 10 mg HS PO 06/26/17 21:00 07/21/17 22:32 Sennosides (Senna Liq) 8.8 mg DAILY PO 06/28/17 09:00 07/20/17 08:48 Albuterol/ Ipratropium (Duoneb Neb) 1 ampule Q2HR NEB PRN NEB SHORTNESS OF BREATH 06/29/17 08:30 07/13/17 20:43 Insulin Human Regular (NovoLIN R SUPPLEMENTAL SCALE) 1 ACHS SQ 07/02/17 12:00 07/19/17 17:18 Albuterol/ Ipratropium (Duoneb Neb) 1 ampule Q4HR NEB PRN INH SHORTNESS OF BREATH 07/05/17 17:00 07/06/17 20:26 Sucralfate (Carafate Liq) 1 gm ACHS PO 07/09/17 08:00 07/22/17 10:08 Multi-Ingredient Mouthwash/Gargle (Magic Mouthwash Adult Liq) 5 ml QID SWISH-SWAL 07/09/17 09:00 07/22/17 09:00 Nystatin (Mycostatin Liq) 5 ml QID SWISH-SWAL 07/09/17 13:00 07/22/17 10:08 Nystatin (Mycostatin Oint) 1 applic Q8HR TOPICAL 07/09/17 15:15 07/22/17 10:25 Miconazole Nitrate (Micatin 2% Cream) 1 applic Q12HR TOPICAL 07/09/17 21:00 07/21/17 22:30 Imatinib Mesylate (Gleevec) 400 mg HS PO 07/11/17 21:00 Future Hold 07/21/17 22:28 Lactobacillus Acidophilus (Lactinex) 1 tab TID PO 07/11/17 18:00 07/21/17 09:50 Lidocaine HCl (Xylocaine 2% Viscous) 15 ml Q4H PRN SWISH-SPIT prior to taking meds 07/12/17 10:15 07/15/17 08:26 Pantoprazole Sodium (Protonix) 40 mg Q12HR PO 07/12/17 21:00 07/22/17 10:08 Prednisone (Deltasone) 10 mg DAILY PO 07/17/17 09:00 07/22/17 10:08 Bacitracin (Baciguent Oint) 1 applic Q12HR TOPICAL 07/18/17 11:30 07/22/17 10:19 Objective Remarks GENERAL: Chronically ill appearing male supine in bed in nad. SKIN: Warm and dry. HEAD: Normocephalic. EYES: No injection or drainage. NECK: Supple, trachea midline. CARDIOVASCULAR: +S1/S2 RESPIRATORY: anterior yates with occasional rhonchi. On 3L O2 via NC GASTROINTESTINAL: Abdomen soft, non-tender, nondistended. EXTREMITIES: No cyanosis NEURO: awake and alert, normal speech. moving all extremities. 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 hold Gleevac -- Was originally diagnosed in 1998 -- Gleevec resumed on 07/11/17 as platelets greater than 100k. (2) Dysphagia ICD Codes: R13.10 - Dysphagia, unspecified Plan: --EGD, 07/21 showed no esophageal ulcer. oral ulcer only. --on magic mouthwash --?HSV (3) Anemia ICD Codes: D64.9 - Anemia, unspecified Plan: 07/22/17: hgb 9.3. monitor CBC. no transfusion needed at present. (4) GI bleed ICD Codes: K92.2 - Gastrointestinal hemorrhage, unspecified Status: Acute Plan: --GI signed off on 07/15 --had incomplete colonoscopy on 07/14 which showed hemorrhoids. --Bleeding scan,07/10--> no active GI bleeding. Assessment 82 y/o male with history of CML. hematology consulted for pancytopenia Attending Statement The exam, history, and the medical decision-making described in the above note were completed with the assistance of the mid-level provider. I reviewed and agree with the findings presented. I attest that I had a [id number] encounter with the patient on the same day, and personally performed and documented my assessment and findings in the medical record. c/o difficulty swallowing EGD findings noted and d/w pt. for colonoscopy tomorrow. Hold [facility] for low plat Mira Zepeda Jul 22, 2017 11:01 Fabrice Patel MD Jul 22, 2017 19:54
[2017-07-22] MEDS: MORPHINE SULFATE 2 MG/ML INJ IV PUSH PRN (13:30)
[2017-07-22] MEDS: SODIUM CHLORIDE 0.9% FLUSH 10 ML FLUSH IV FLUSH PRN (13:30)
--- NOTE | 2017-07-22 14:13 | HHI.GIFU ---
Subjective Remarks resting in bed family in . struggling with drinking Go lytely, but will do colonscopy with Mag Citrate Discussed prep options afebrile (Angela Zaidi) Objective Vitals I&O Vital Signs Date Time Temp Pulse Resp B/P (MAP) Pulse Ox O2 Delivery O2 Flow Rate FiO2 07/22/17 11:55 98.0 95 20 107/58 (74) 99 07/22/17 09:15 99 Nasal Cannula 3.00 07/22/17 09:07 98.1 91 20 106/60 (75) 97 07/22/17 07:52 Nasal Cannula 3.00 07/22/17 07:52 91 07/22/17 04:53 97.8 87 20 116/69 (85) 97 07/22/17 00:23 98.7 81 20 122/51 (74) 100 07/22/17 00:00 78 07/21/17 21:50 98.1 78 17 147/80 (102) 100 07/21/17 20:00 79 07/21/17 20:00 Nasal Cannula 3.00 21 07/21/17 19:04 Nasal Cannula 3.00 07/21/17 17:30 83 16 109/51 (70) 95 07/21/17 17:15 98.1 87 17 112/70 (84) 99 Nasal Cannula 3 07/21/17 17:00 79 17 106/62 (77) 99 Nasal Cannula 3 07/21/17 16:45 81 17 97/62 (74) 99 Nasal Cannula 3 07/21/17 16:36 Nasal Cannula 2.00 07/21/17 16:30 98.1 80 17 114/58 (76) 99 Nasal Cannula 3 I/O 07/21/17 07/21/17 07/21/17 07/22/17 07/22/17 07/22/17 07:00 15:00 23:00 07:00 15:00 23:00 Intake Total 240 ml 640 ml Output Total 2 ml 325 ml Balance 238 ml 315 ml Intake Oral 240 ml 240 ml Other 400 ml Output Urine Total 2 ml 325 ml # Voids 1 # Bowel Movements 1 1 Laboratory Laboratory Tests Test 07/22/17 04:50 White Blood Count 8.0 Red Blood Count 3.03 Hemoglobin 9.3 Hematocrit 27.2 Mean Corpuscular Volume 89.6 Mean Corpuscular Hemoglobin 30.6 Mean Corpuscular Hemoglobin Concent 34.1 Red Cell Distribution Width 18.7 Platelet Count 66 Mean Platelet Volume 8.7 Neutrophils (%) (Auto) 67.8 Lymphocytes (%) (Auto) 28.8 Monocytes (%) (Auto) 2.8 Eosinophils (%) (Auto) 0.2 Basophils (%) (Auto) 0.4 Neutrophils # (Auto) 5.4 Lymphocytes # (Auto) 2.3 Monocytes # (Auto) 0.2 Eosinophils # (Auto) 0.0 Basophils # (Auto) 0.0 CBC Comment AUTO DIFF Differential Total Cells Counted 100 Neutrophils % (Manual) 48 Band Neutrophils % 15 Lymphocytes % 35 Monocytes % 1 Eosinophils % 1 Neutrophils # (Manual) 5.0 Differential Comment FINAL DIFF MANUAL Atypical Lymphocytes Toxic Granulation 1+ Platelet Estimate LOW Platelet Morphology Comment NORMAL Blood Urea Nitrogen 23 Creatinine 1.57 Random Glucose 77 Total Protein 4.6 Calcium Level 7.1 Sodium Level 145 Potassium Level 3.6 Chloride Level 109 Carbon Dioxide Level 30.9 Anion Gap 5 Estimat Glomerular Filtration Rate 43 Protein Corrected Calcium 8.5 Date/Time Source Procedure Growth Status 07/08/17 06:32 Blood Peripheral Aerobic Blood Culture - Final Staphylococcus Epidermidis Complete 07/08/17 06:32 Blood Peripheral Anaerobic Blood Culture - Final QNS - SEE AEROBE REPORT Complete 07/21/17 02:30 Stool Stool Stool Occult Blood (EVELIA) - Final HEMOCCULT POSITIVE Complete 07/05/17 21:00 Sputum Expectorated Sputum Gram Stain - Final Complete 07/05/17 21:00 Sputum Culture - Final Klebsiella Pneumoniae Pseudomonas Aeruginosa Complete 06/24/17 15:55 Urine Catheterized Urine Urine Culture - Final NO GROWTH IN 48 HOURS. Complete Imaging Last Impressions Modified Barium Swallow 07/21/17 0000 Signed Impressions: Service Date/Time: Friday, July 21, 2017 00:00 - CONCLUSION: Swallowing mechanism remains labored. Minimal vestibular penetration without aspiration due to rapid swallowing through a straw. Patient was unable to naturally swallow a barium tablet. Kendall Marti MD Chest X-Ray 07/19/17 0000 Signed Impressions: Service Date/Time: Wednesday, July 19, 2017 03:32 - CONCLUSION: Left basilar airspace disease suspected. Central venous catheter placement as above. Braulio Sellers MD Upper Extremity Ultrasound 07/18/17 0000 Signed Impressions: Service Date/Time: Tuesday, July 18, 2017 13:24 - CONCLUSION: 1. Occlusive thrombus within the proximal and mid aspect of the left cephalic vein. 2. The remaining veins of both upper extremities are patent. Alli Cohen MD GI Bleed Scan Nuclear Medicine 07/10/17 0000 Signed Impressions: Service Date/Time: June 16:42 - CONCLUSION: No active gastrointestinal bleeding Alli Teague MD Abdomen X-Ray 07/08/17 0600 Signed Impressions: Service Date/Time: Saturday, July 08, 2017 04:09 - CONCLUSION: Negative KUB. Alli Schroeder MD Abdomen/Pelvis CT 07/05/17 0000 Signed Impressions: Service Date/Time: Wednesday, July 05, 2017 15:06 - CONCLUSION: 1. Left lower lobe consolidation. 2. Dilated loops of proximal and mid small bowel. 3. Stable distal abdominal aortic aneurysm. 4. Stable sigmoid diverticulosis without evidence of diverticulitis. David Gutierrez MD Hepatobiliary Scan Nuclear Medicine 06/25/17 0000 Signed Impressions: Service Date/Time: Sunday, June 25, 2017 10:43 - CONCLUSION: 1. No evidence for cystic duct obstruction. 2. Biliary enteric reflux. Braulio Sellers MD Physical Exam HEENT: Normocephalic; atraumatic, no jaundice.pale CHEST: CTA. CARDIAC: RRR. ABDOMEN: Soft, nontender, no hepatomegaly, bowel sounds present. EXTREMITIES: No edema. MEDICAL DIRECTOR OF HOSPICE: Awake, irrtable at times.but seems to understand (Angela Zaidi) Assessment and Plan Assessment: (1) GERD (gastroesophageal reflux disease) ICD Codes: K21.9 - Gastro-esophageal reflux disease without esophagitis (2) Anemia ICD Codes: D64.9 - Anemia, unspecified (3) GI bleed ICD Codes: K92.2 - Gastrointestinal hemorrhage, unspecified Status: Acute (4) Diverticulosis ICD Codes: K57.90 - Diverticulosis of intestine, part unspecified, without perforation or abscess without bleeding (5) Dysphagia ICD Codes: R13.10 - Dysphagia, unspecified Plan - Dysphagia. Doing better with eating, slow and chewing, Staying on pureed diet thicken liquids. S/p EGD 07/13/17--mild gastritis in the antrum and distal esophagitis. Biopsies negative for CMV/HSV, did show acute and chronic esophagitis, negative for H. pylori. ST evaluation 07/18/17, recommended puree diet. - Bloody diarrhea, resolved. Had blood stool 07/10. Bleeding scan (07/10/17)-- no active GI bleeding. C. Diff negative. S/p incomplete colonoscopy (poor prep) 07/14/17, Has agreed to redo colonoscopy with Mag Citrate prep. scheduled for am. - Ileus. resolved. - GERD, PPI - Anemia. HH Patient is s/p 2 units PRBC 07/19. PLAN: -Colonoscopy in am. Friday, Nurse to call early if patient doesnt get good results or drink prep. - Obtain consents - NPO at [place] - Monitor HH, transfuse as needed - Notify GI of active bleeding - Puree diet, but clear liquids with thicker rest of day. - Supportive care - Further recommendations to follow based on results of above patient seen per myself and Dr. Garcia, note on his behalf (Angela Zaidi) Physician Comments Patient seen and examined Agree with above Continue with current supportive care Monitor labs Plan for colonoscopy tomorrow (Kraig Garcia MD) Problem Qualifiers (1) Diverticulosis: Angela Zaidi Jul 22, 2017 14:13 Kraig Garcia MD Jul 22, 2017 16:55
--- NOTE | 2017-07-22 14:33 | HHI.HCPN ---
Reason for visit a. To assist with evaluation and management of symptoms including: dyspnea, pain, n/v/constipation b. To assist medical decision maker(s) with: better understanding of current medical conditions; weighing benefits/burdens of medical treatment options; making medical treatment decisions. Subjective/Interval History Pt seen today to follow up on comfort, goals. Pt resp status has remained stable on NC O2. Working w PT, OT. CM working on d/ c planning to SNF. Renal functions improved, BUN 23, creatinine 1.57, voiding adequately. Improving edema BUE. Ultrasound showed occlusive thrombus within the proximal and mid aspects of the left cephalic vein with the remaining veins of both upper extremities patent. Wound care cont to follow for buttocks, Lt heel wound, pt now on specialty air bed. Oral thrush improving, taking fair PO now. Ate 75% of his lunch today. Gleevec resumed 07/12 per oncology. Patient seen in room at bedside. He is eating lunch, which his is feeding him. He eats better when she feeds him. He participates in conversation some. He denies dyspnea, abdominal pain or discomfort. states he is feeling better overall, but not doing much with PT, other than ROM in bed. Discussed his refusal of second colonoscopy which was requested as the initial prep was too poor for an adequate evaluation. states he was confused and thought it was the endoscopy they were discussing. This was reviewed with the patient and he is agreeable to the second colonoscopy. This was discussed with GI who will reevaluate the patient. . Family/friend interactions at bedside, aware of his slow progress, minimal participation in PT. She is aware that he may not progress with therapy and may continue to decline, but wishes to give him the opportunity to try to regain some function. She states that she is not ready to transition to comfort care/hospice at this time. Patient is a DNR. . Advance Directives Living Will: Completed, but not made available Health Care Surrogate: Completed, but not made available Objective Vital Signs Date Time Temp Pulse Resp B/P (MAP) Pulse Ox O2 Delivery O2 Flow Rate FiO2 07/22/17 11:55 98.0 95 20 107/58 (74) 99 07/22/17 09:15 99 Nasal Cannula 3.00 07/22/17 09:07 98.1 91 20 106/60 (75) 97 07/22/17 07:52 Nasal Cannula 3.00 07/22/17 07:52 91 07/22/17 04:53 97.8 87 20 116/69 (85) 97 07/22/17 00:23 98.7 81 20 122/51 (74) 100 07/22/17 00:00 78 07/21/17 21:50 98.1 78 17 147/80 (102) 100 07/21/17 20:00 79 07/21/17 20:00 Nasal Cannula 3.00 21 07/21/17 19:04 Nasal Cannula 3.00 07/21/17 17:30 83 16 109/51 (70) 95 07/21/17 17:15 98.1 87 17 112/70 (84) 99 Nasal Cannula 3 07/21/17 17:00 79 17 106/62 (77) 99 Nasal Cannula 3 07/21/17 16:45 81 17 97/62 (74) 99 Nasal Cannula 3 07/21/17 16:36 Nasal Cannula 2.00 07/21/17 16:30 98.1 80 17 114/58 (76) 99 Nasal Cannula 3 Intake & Output 07/22/17 07/22/17 06:59 18:59 # Voids 1 # Bowel Movements 1 Physical Exam CONSTITUTIONAL/GENERAL: Elderly, obese male lying in bed in no acute distress. TUBES/LINES/DRAINS: Peripheral upper extremity, NC O2 3L SKIN: No wounds seen anteriorly- reported wound to heel, buttocks I did not visualize. Skin warm, dry.+ hands, arms. ENT: Hard of hearing. Nose without bleeding or purulent drainage. Lips, mucous membranes dry. thrush resolved- no exudates or lesions visible CARDIOVASCULAR: Regular rate and rhythm without murmur. Peripheral pulses symmetric. 1+ edema hands/arms RESPIRATORY/CHEST: Symmetric, unlabored respirations. Coarse air movement throughout, diminished bases. GASTROINTESTINAL: Abdomen soft, round, nontender. No palpable masses. No guarding. Bowel sounds normoactive GENITOURINARY: Without palpable bladder distension. Voids to urinal observe clear dark yellow urine present MUSCULOSKELETAL: Extremities without clubbing, cyanosis. 1+ edema BUE. No joint tenderness or effusion noted. No mottling or clubbing. Feet in poultice boots NEUROLOGICAL: Alert, oriented to self and place and purpose. Participates in conversation. PSYCHIATRIC: No obvious anxiety/depression. . Diagnostic Tests Laboratory Laboratory Tests Test 07/20/17 05:40 07/20/17 08:45 07/20/17 18:07 07/20/17 20:15 Blood Urea Nitrogen 24 MG/DL (7-18) Creatinine 1.39 MG/DL (0.60-1.30) Random Glucose 84 MG/DL (74-106) Total Protein 4.8 GM/DL (6.4-8.2) Calcium Level 7.4 MG/DL (8.5-10.1) Sodium Level 144 MEQ/L (136-145) Potassium Level 3.8 MEQ/L (3.5-5.1) Chloride Level 108 MEQ/L (98-107) Carbon Dioxide Level 30.6 MEQ/L (21.0-32.0) Anion Gap 5 MEQ/L (5-15) Estimat Glomerular Filtration Rate 49 ML/MIN (>89) Protein Corrected Calcium 8.7 MG/DL (8.5-10.1) White Blood Count 6.6 TH/MM3 (4.0-11.0) 7.0 TH/MM3 (4.0-11.0) Red Blood Count 3.25 MIL/MM3 (4.50-5.90) 2.99 MIL/MM3 (4.50-5.90) Hemoglobin 10.1 GM/DL (13.0-17.0) 9.2 GM/DL (13.0-17.0) Hematocrit 29.1 % (39.0-51.0) 26.7 % (39.0-51.0) Mean Corpuscular Volume 89.6 FL (80.0-100.0) 89.3 FL (80.0-100.0) Mean Corpuscular Hemoglobin 31.1 PG (27.0-34.0) 30.9 PG (27.0-34.0) Mean Corpuscular Hemoglobin Concent 34.7 % (32.0-36.0) 34.5 % (32.0-36.0) Red Cell Distribution Width 19.4 % (11.6-17.2) 19.3 % (11.6-17.2) Platelet Count 86 TH/MM3 (150-450) 70 TH/MM3 (150-450) Mean Platelet Volume 8.8 FL (7.0-11.0) 9.2 FL (7.0-11.0) Neutrophils (%) (Auto) 73.7 % (16.0-70.0) Lymphocytes (%) (Auto) 22.5 % (9.0-44.0) Monocytes (%) (Auto) 3.0 % (0.0-8.0) Eosinophils (%) (Auto) 0.4 % (0.0-4.0) Basophils (%) (Auto) 0.4 % (0.0-2.0) Neutrophils # (Auto) 4.8 TH/MM3 (1.8-7.7) Lymphocytes # (Auto) 1.5 TH/MM3 (1.0-4.8) Monocytes # (Auto) 0.2 TH/MM3 (0-0.9) Eosinophils # (Auto) 0.0 TH/MM3 (0-0.4) Basophils # (Auto) 0.0 TH/MM3 (0-0.2) CBC Comment AUTO DIFF Differential Total Cells Counted 100 Neutrophils % (Manual) 65 % (16-70) Band Neutrophils % 7 % (0-6) Lymphocytes % 18 % (9-44) Monocytes % 7 % (0-8) Eosinophils % 1 % (0-4) Neutrophils # (Manual) 4.9 TH/MM3 (1.8-7.7) Metamyelocytes 2 % (0-1) Differential Comment FINAL DIFF MANUAL Toxic Granulation 1+ (NORMAL) Platelet Estimate LOW (NORMAL) Platelet Morphology Comment NORMAL (NORMAL) Troponin I 0.43 NG/ML (0.02-0.05) Prothrombin Time 10.9 SEC (9.8-11.6) Prothromb Time International Ratio 1.1 RATIO Activated Partial Thromboplast Time 27.3 SEC (24.3-30.1) Test 07/21/17 02:35 07/21/17 11:30 07/22/17 04:50 White Blood Count 8.1 TH/MM3 (4.0-11.0) 8.0 TH/MM3 (4.0-11.0) Red Blood Count 3.13 MIL/MM3 (4.50-5.90) 3.03 MIL/MM3 (4.50-5.90) Hemoglobin 9.5 GM/DL (13.0-17.0) 9.3 GM/DL (13.0-17.0) Hematocrit 28.0 % (39.0-51.0) 27.2 % (39.0-51.0) Mean Corpuscular Volume 89.4 FL (80.0-100.0) 89.6 FL (80.0-100.0) Mean Corpuscular Hemoglobin 30.3 PG (27.0-34.0) 30.6 PG (27.0-34.0) Mean Corpuscular Hemoglobin Concent 33.9 % (32.0-36.0) 34.1 % (32.0-36.0) Red Cell Distribution Width 18.7 % (11.6-17.2) 18.7 % (11.6-17.2) Platelet Count 81 TH/MM3 (150-450) 66 TH/MM3 (150-450) Mean Platelet Volume 8.2 FL (7.0-11.0) 8.7 FL (7.0-11.0) Neutrophils (%) (Auto) 64.8 % (16.0-70.0) 67.8 % (16.0-70.0) Lymphocytes (%) (Auto) 31.4 % (9.0-44.0) 28.8 % (9.0-44.0) Monocytes (%) (Auto) 2.6 % (0.0-8.0) 2.8 % (0.0-8.0) Eosinophils (%) (Auto) 0.2 % (0.0-4.0) 0.2 % (0.0-4.0) Basophils (%) (Auto) 1.0 % (0.0-2.0) 0.4 % (0.0-2.0) Neutrophils # (Auto) 5.3 TH/MM3 (1.8-7.7) 5.4 TH/MM3 (1.8-7.7) Lymphocytes # (Auto) 2.6 TH/MM3 (1.0-4.8) 2.3 TH/MM3 (1.0-4.8) Monocytes # (Auto) 0.2 TH/MM3 (0-0.9) 0.2 TH/MM3 (0-0.9) Eosinophils # (Auto) 0.0 TH/MM3 (0-0.4) 0.0 TH/MM3 (0-0.4) Basophils # (Auto) 0.1 TH/MM3 (0-0.2) 0.0 TH/MM3 (0-0.2) CBC Comment AUTO DIFF AUTO DIFF Differential Comment AUTO DIFF CONFIRMED FINAL DIFF MANUAL Platelet Estimate LOW (NORMAL) LOW (NORMAL) Platelet Morphology Comment NORMAL (NORMAL) NORMAL (NORMAL) Activated Partial Thromboplast Time 26.8 SEC (24.3-30.1) Blood Urea Nitrogen 21 MG/DL (7-18) 23 MG/DL (7-18) Creatinine 1.57 MG/DL (0.60-1.30) 1.57 MG/DL (0.60-1.30) Random Glucose 91 MG/DL (74-106) 77 MG/DL (74-106) Total Protein 4.6 GM/DL (6.4-8.2) 4.6 GM/DL (6.4-8.2) Calcium Level 7.2 MG/DL (8.5-10.1) 7.1 MG/DL (8.5-10.1) Sodium Level 145 MEQ/L (136-145) 145 MEQ/L (136-145) Potassium Level 3.6 MEQ/L (3.5-5.1) 3.6 MEQ/L (3.5-5.1) Chloride Level 108 MEQ/L (98-107) 109 MEQ/L (98-107) Carbon Dioxide Level 30.3 MEQ/L (21.0-32.0) 30.9 MEQ/L (21.0-32.0) Anion Gap 7 MEQ/L (5-15) 5 MEQ/L (5-15) Estimat Glomerular Filtration Rate 43 ML/MIN (>89) 43 ML/MIN (>89) Protein Corrected Calcium 8.6 MG/DL (8.5-10.1) 8.5 MG/DL (8.5-10.1) Total Creatine Kinase 129 U/L (39-308) 131 U/L (39-308) Troponin I 0.46 NG/ML (0.02-0.05) 0.46 NG/ML (0.02-0.05) Differential Total Cells Counted 100 Neutrophils % (Manual) 48 % (16-70) Band Neutrophils % 15 % (0-6) Lymphocytes % 35 % (9-44) Monocytes % 1 % (0-8) Eosinophils % 1 % (0-4) Neutrophils # (Manual) 5.0 TH/MM3 (1.8-7.7) Atypical Lymphocytes % (0-0) Toxic Granulation 1+ (NORMAL) . Result Diagram: 07/22/17 0450 07/22/17 0450 Microbiology Microbiology Date/Time Source Procedure Growth Status 07/21/17 02:30 Stool Stool Stool Occult Blood (EVELIA) - Final HEMOCCULT POSITIVE Complete Imaging Last Impressions Modified Barium Swallow 07/21/17 0000 Signed Impressions: Service Date/Time: Friday, July 21, 2017 00:00 - CONCLUSION: Swallowing mechanism remains labored. Minimal vestibular penetration without aspiration due to rapid swallowing through a straw. Patient was unable to naturally swallow a barium tablet. Kendall Marti MD Chest X-Ray 07/19/17 0000 Signed Impressions: Service Date/Time: Wednesday, July 19, 2017 03:32 - CONCLUSION: Left basilar airspace disease suspected. Central venous catheter placement as above. Braulio Sellers MD Upper Extremity Ultrasound 07/18/17 0000 Signed Impressions: Service Date/Time: Tuesday, July 18, 2017 13:24 - CONCLUSION: 1. Occlusive thrombus within the proximal and mid aspect of the left cephalic vein. 2. The remaining veins of both upper extremities are patent. Alli Cohen MD GI Bleed Scan Nuclear Medicine 07/10/17 0000 Signed Impressions: Service Date/Time: June 16:42 - CONCLUSION: No active gastrointestinal bleeding Alli Teague MD Abdomen X-Ray 07/08/17 0600 Signed Impressions: Service Date/Time: Saturday, July 08, 2017 04:09 - CONCLUSION: Negative KUB. Alli Schroeder MD Abdomen/Pelvis CT 07/05/17 0000 Signed Impressions: Service Date/Time: Wednesday, July 05, 2017 15:06 - CONCLUSION: 1. Left lower lobe consolidation. 2. Dilated loops of proximal and mid small bowel. 3. Stable distal abdominal aortic aneurysm. 4. Stable sigmoid diverticulosis without evidence of diverticulitis. David Gutierrez MD Hepatobiliary Scan Nuclear Medicine 06/25/17 0000 Signed Impressions: Service Date/Time: Sunday, June 25, 2017 10:43 - CONCLUSION: 1. No evidence for cystic duct obstruction. 2. Biliary enteric reflux. Braulio Sellers MD . Procedures 06/24: Right IJ central line placement. 07/13: EGD 07/14: Colonoscopy 07/19: Central line placement to right IJ. 07/21: EGD . Assessment and Plan Disease Oriented Problem List: (1) CKD (chronic kidney disease), stage III (2) Acute renal failure (3) Hypotension (4) Severe sepsis (5) Diverticulosis (6) Chronic systolic heart failure (7) CML (chronic myelocytic leukemia) (8) Pancytopenia (9) COPD (chronic obstructive pulmonary disease) (10) Diabetes mellitus Symptom Scale: (1) Dyspnea 0-10 Scale: 2 (2) Pain (3) Nausea (4) Constipation (5) Fatigue Pertinent Non-Medical Issues Psychosocial:lives at home with his of 61 years. Originally from [place] moved to [place] in the late . His adult children and grandchildren still reside in [place]. Retired from [employer]. Spiritual:Does not indicate any spiritual/rastafarian preference does not want hedis manager visits..( later indicates that he would in fact want hedis manager visits and requests them-she indicates that they have no particular affiliation but believes in God and would want to support) Legal: Patient is lethargic, alertness fluctuates, he seems to have on some understanding/insight; likely would best be supported by shared decision-making by either his or whomever is designated healthcare surrogate. Ethical issues impacting care: Important Contacts Jazzy Tabares [phone] . Prognosis This patient was admitted for nausea vomiting and severe abdominal pain. Along his course he is found to have significant hypotension requiring aggressive fluid resuscitation. Sepsis workup essentially negative though he has had ongoing GI pathology. He continues to have GI distention and ileus. May have pleural effusion, has had increased FiO2 requirements. Underlying COPD. Overall prognosis to recover to prior level of independence is guarded patient may require rehabilitation following this acute hospitalization. Additionally patient is very high risk for further complications and setbacks and decline secondary to his advanced age, limited desire to participate, and multiple medical issues. . Code Status: No Code Plan * Legal decision maker: Patient is lethargic at times, alertness fluctuates, he seems to have on some understanding/insight; likely would best be supported by shared decision-making by his . * Goals: For now they wish to maximize ongoing treatments to try to improve patient health enough to return home, goals aggressive short of resuscitation. * CODE STATUS: DNR * SYMPTOMS: --Dyspnea-CXR 07/19 shows cardiomegaly and patchy left lower lobe airspace disease with right subclavian central line placement and single lead ICD/pacer noted. Abdomen pelvis CT from 07/05 indicative of lower lobe consolidation. Noncompliant with incentive spirometry. Has not been out of bed or ambulating regularly, receiving PT in bed. Underlying history of COPD O2 dependent at night and utilized O2 as needed during the day. High risk for further respiratory decline secondary to acute illness and underlying medical comorbidities. Patient denies any dyspnea today. --Pain--abdominal pain resolved. Has chronic ongoing pain for which he receives methadone 2.5 mg twice a day with morphine 2 mg IV every 3 hours as needed for breakthrough pain. Patient denies pain at this time.. --Nausea/vomiting-this has resolved, with resolution of the ileus. Patient is currently eating without abdominal discomfort. --Constipation-Constipation resolved, several BMS 07/22; patient with intermittent episodes of nausea and vomiting 2/2 ileus, abdominal pathology during this acute hospitalization, which have now resolved. Hemoccult positive stool seen, patient had 1 colonoscopy but prep was so poor, thorough evaluation could not be done. Patient had initially refused repeat colonoscopy, as he was confused regarding the procedure, but is now able to agree to a repeat colonoscopy. Notified GI who will reassess to see if it is necessary. --Fatigue/generalized weakness-generalized deconditioning during hospital course, + ileus, pulmonary effusion, activity further limited by chronic comorbid conditions COPD, now with prolonged (28 day) hospitalization and has intermittently refused to participate with PT, though most recently participating w PT, OT, but not getting out of bed. Plan for discharge to rehabilitation when stable. -- Oral thrush-prev. painful lesions on tongue. magic mouthwash + nystatin added, now resolved. * Palliative care will continue to follow during hospital course as condition evolves, to assist patient/decision-maker with understanding of medical conditions, weighing benefits/burdens of treatment options, for clarification of goals of treatment. Additionally will assist with any symptoms of palliative concern Attestation To help prompt me to consider important information that might be impacting today's encounter and assessment, information from prior notes written by myself or my colleagues may have been "brought forward" into today's note. My signature on this note, however, is an attestation that I personally performed the exam, history, and/or decision-making noted today, and, unless otherwise indicated, the interactions with patient, family, and staff as well as the review of records all occurred today. I also attest that the listed assessment and stated plan reflect my best clinical judgment today based on the combination of historical information, prior notes, and today's exam/ interactions. When time spent is documented, it refers only to time spent today by the signer, or if indicated, combined time spent today by collaborating physician/nurse practitioner. . Martha Box Jul 22, 2017 2:33 pm
--- NOTE | 2017-07-22 15:27 | HHI.NPPN ---
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 I was called to see the patient because of elevated BUN and creatinine. Additional Remarks Patient is sleepy but arousable, clinically same, not in distress. Objective Data Data Vital Signs Date Time Temp Pulse Resp B/P (MAP) Pulse Ox O2 Delivery O2 Flow Rate FiO2 07/22/17 11:55 98.0 95 20 107/58 (74) 99 07/22/17 09:15 99 Nasal Cannula 3.00 07/22/17 09:07 98.1 91 20 106/60 (75) 97 07/22/17 07:52 Nasal Cannula 3.00 07/22/17 07:52 91 07/22/17 04:53 97.8 87 20 116/69 (85) 97 07/22/17 00:23 98.7 81 20 122/51 (74) 100 07/22/17 00:00 78 07/21/17 21:50 98.1 78 17 147/80 (102) 100 07/21/17 20:00 79 07/21/17 20:00 Nasal Cannula 3.00 21 07/21/17 19:04 Nasal Cannula 3.00 07/21/17 17:30 83 16 109/51 (70) 95 07/21/17 17:15 98.1 87 17 112/70 (84) 99 Nasal Cannula 3 07/21/17 17:00 79 17 106/62 (77) 99 Nasal Cannula 3 07/21/17 16:45 81 17 97/62 (74) 99 Nasal Cannula 3 07/21/17 16:36 Nasal Cannula 2.00 07/21/17 16:30 98.1 80 17 114/58 (76) 99 Nasal Cannula 3 -: 07/22/17 0450 07/22/17 0450 Physical Exam General Appearance: No Acute Distress, Comfortable Eyes Eye Exam: Pupils Equal Throat Throat Exam: Oral Mucosa [place] & Moist Neck Neck Exam: Neck Supple Pulmonary Resp Exam: Breath Sounds Equal, No Distress, Rhonchi, Sputum, Decreased Bases Cardiology CV Exam: Regular, Normal Sinus Rhythm Gastrointestinal/Abdomen GI Exam: Soft, Non-Tender, Bowel Sounds Present Extremeties Extremities Exam: Moderate Edema, Pitting Edema, Dependent Edema Neurologic Neuro Exam: Alert, Awake, Oriented Psychiatric Psych Exam: Appropriate Responses Assessment/Plan Assessment Summary: LEESA/Acute Renal Failure, Hypertension, CKD Stage IV Problem List: (1) COPD (chronic obstructive pulmonary disease) ICD Codes: J44.9 - Chronic obstructive pulmonary disease, unspecified Status: Chronic (2) Bronchitis ICD Codes: J40 - Bronchitis, not specified as acute or chronic Status: Acute (3) HTN (hypertension) ICD Codes: I10 - Essential (primary) hypertension Status: Chronic (4) Diabetes mellitus ICD Codes: E11.9 - Type 2 diabetes mellitus without complications (5) Acute respiratory failure ICD Codes: J96.00 - Acute respiratory failure, unspecified whether with hypoxia or hypercapnia (6) Severe sepsis ICD Codes: A41.9 - Sepsis, unspecified organism; R65.20 - Severe sepsis without septic shock Status: Acute (7) Acute kidney injury ICD Codes: N17.9 - Acute kidney failure, unspecified Status: Acute Plan Patient has been non oliguric. Has Chronic kidney disease, possibly stage 3- 4. Hematology following hx of CML and Pancytopenia ID is following. Lasix is on hold. Results of EGD and Barium swallow noted. Creatinine is stable, for colonoscopy in AM. Problem Qualifiers (1) Diabetes mellitus: Qualified Codes: E11.8 - Type 2 diabetes mellitus with unspecified complications (2) Acute respiratory failure: Qualified Codes: J96.02 - Acute respiratory failure with hypercapnia Bismark Woods MD Jul 22, 2017 15:27
[2017-07-22] MEDS ORDERED: PEG (High)/E-LYTE SOLN 4000 ML BTL PO ONE (16:00)
[2017-07-22] MEDS ORDERED: MAGNESIUM CITRATE SOLN 300 ML BTL PO ONE (16:00)
[2017-07-22] MEDS: BISACODYL EC 5 MG TABEC PO SCH (21:08)
[2017-07-23] VITALS (8 sets, daily range): BP systolic 93–135; BP diastolic 51–69; PULSE 67–88; RESP 15–20; TEMP 97.7–98.8; O2SAT 94–99
[2017-07-23] MEDS: CHLORHEXIDINE GLUCONATE 2 % 1 PACK (2 CLOTHS) TOP SCH (03:44)
[2017-07-23] MEDS: NYSTATIN 100,000 U/GM OINT 15 GM TUBE TOPICAL SCH ×3 (05:21→20:56)
[2017-07-23] MEDS ORDERED: MAGNESIUM CITRATE SOLN 300 ML BTL PO ONE ×3 (06:15→20:00)
[2017-07-23 07:45] LABS: HEMATOCRIT 26.1 % (39.0-51.0); HEMOGLOBIN 8.8 GM/DL (13.0-17.0); MEAN CELL VOLUME 90.7 FL (80.0-100.0); MEAN CORPUSCULAR HEMOGLOBIN 30.5 PG (27.0-34.0); MEAN CORPUSCULAR HGB CONC 33.7 % (32.0-36.0); PLATELET COUNT 65 TH/MM3 (150-450); RED BLOOD COUNT 2.88 MIL/MM3 (4.50-5.90); WHITE BLOOD COUNT 6.1 TH/MM3 (4.0-11.0)
[2017-07-23] MEDS: INSULIN NovoLIN REGULAR SUPPLEMENTAL SCALE SQ SCH ×4 (08:00→20:54)
[2017-07-23] MEDS: DOCUSATE SODIUM 50 MG/SENNA 8.6 MG TAB PO SCH ×2 (09:00→20:53)
[2017-07-23] MEDS: LACTOBACILLUS ACIDOPHILUS TAB PO SCH ×3 (09:00→18:00)
[2017-07-23] MEDS: MICONAZOLE NITRATE 2% CREAM 15 GM TOPICAL SCH (09:00)
[2017-07-23] MEDS: NYSTAT/DIPHENHY/LIDO MOUTHWASH (Adult) 120ML SWISH-SWAL SCH ×4 (09:00→20:54)
[2017-07-23] MEDS: BACITRACIN TOP OINT 15 GM TUBE TOPICAL SCH ×2 (09:00→20:57)
[2017-07-23] MEDS: SODIUM CHLORIDE 0.9% FLUSH 10 ML FLUSH IV FLUSH SCH ×3 (09:00→20:55)
[2017-07-23] MEDS: METHADONE HCL 10 MG/10 ML ORAL SOLUTION PO SCH ×2 (09:03→20:54)
[2017-07-23] MEDS: PANTOPRAZOLE SOD 40 MG DELAYED RELEASE TAB PO SCH ×2 (09:03→20:53)
[2017-07-23] MEDS: SENNOSIDES SYRUP 8.8 MG/5 ML CUP PO SCH (09:04)
[2017-07-23] MEDS: AMIODARONE 200 MG TAB PO SCH (09:04)
[2017-07-23] MEDS: predniSONE 10 MG TAB PO SCH (09:04)
[2017-07-23] MEDS: MORPHINE SULFATE 2 MG/ML INJ IV PUSH PRN ×2 (09:06→16:27)
--- NOTE | 2017-07-23 11:40 | PD.ONC.PN ---
Subjective Subjective Remarks Afebrile overnight. late entry, patient seen at 9AM. Patient resting in bed, about to go down for colonoscopy. No complaints. Objective Data Date Time Temp Pulse Resp B/P (MAP) Pulse Ox O2 Delivery O2 Flow Rate FiO2 07/23/17 05:21 98.0 79 18 109/66 (80) 98 07/23/17 04:16 85 07/23/17 00:26 97.7 80 15 93/51 (65) 97 07/23/17 00:23 78 07/22/17 22:00 16 07/22/17 21:06 Nasal Cannula 3.00 21 07/22/17 21:06 98.4 86 20 103/78 (86) 98 07/22/17 20:16 86 07/22/17 17:50 98.4 91 20 104/60 (75) 99 07/22/17 11:55 98.0 95 20 107/58 (74) 99 07/23/17 07/23/17 07/23/17 07:00 15:00 23:00 Output Total 300 ml Balance -300 ml Result Diagram: 07/23/17 0715 07/22/17 0450 Laboratory Results Laboratory Tests Test 07/23/17 07:15 White Blood Count 6.1 TH/MM3 Red Blood Count 2.88 MIL/MM3 Hemoglobin 8.8 GM/DL Hematocrit 26.1 % Mean Corpuscular Volume 90.7 FL Mean Corpuscular Hemoglobin 30.5 PG Mean Corpuscular Hemoglobin Concent 33.7 % Red Cell Distribution Width 19.0 % Platelet Count 65 TH/MM3 Mean Platelet Volume 9.0 FL Culture Results Microbiology Date/Time Source Procedure Growth Status 07/21/17 02:30 Stool Stool Stool Occult Blood (EVELIA) - Final HEMOCCULT POSITIVE Complete Administered Medications Medications (Trade) Dose Ordered Sig/Sunil Route PRN Reason Start Time Stop Time Status Last Admin Dose Admin Sodium Chloride (NS Flush) 2 ml UNSCH PRN IV FLUSH FLUSH AFTER USING IV ACCESS 06/24/17 20:30 07/22/17 13:30 Sodium Chloride (NS Flush) 2 ml BID IV FLUSH 06/24/17 21:00 07/23/17 09:06 Ondansetron HCl (Zofran Inj) 4 mg Q6H PRN IV PUSH NAUSEA OR VOMITING 06/24/17 20:30 07/03/17 17:30 Chlorhexidine Gluconate (Chlorhexidine 2% Cloth) Taper DAILY@04 TOP 06/25/17 04:00 06/21/18 03:59 07/01/17 04:00 Senna/Docusate Sodium (Olesya-Colace) 1 tab BID PO 06/24/17 21:00 07/22/17 21:08 Bisacodyl (Dulcolax Supp) 10 mg DAILY PRN RECTAL SEVERE CONSITIPATION 06/24/17 20:30 06/28/17 08:31 Amiodarone HCl (Cordarone) 200 mg DAILY PO 06/25/17 09:00 07/23/17 09:04 Methadone HCl (Methadone Liq) 2.5 mg BID PO 06/24/17 21:00 07/23/17 09:03 Dextrose (D50w (Vial) Inj) 50 ml UNSCH PRN IV PUSH HYPOGLYCEMIA-SEE COMMENTS 06/24/17 20:30 06/24/17 21:15 Sodium Chloride (NS Flush) DAILY IV FLUSH 06/25/17 09:00 07/22/17 09:00 Sodium Chloride (NS Flush) UNSCH PRN IV FLUSH SEE PROTOCOL 06/24/17 21:30 07/20/17 20:36 Morphine Sulfate (Morphine Inj) 2 mg Q3H PRN IV PUSH pain 1-5 06/24/17 23:15 07/23/17 09:06 Morphine Sulfate (Morphine Inj) 4 mg Q3H PRN IV PUSH pain 6-10 06/24/17 23:15 07/06/17 02:26 Bisacodyl (Dulcolax Ec) 10 mg HS PO 06/26/17 21:00 07/22/17 21:08 Sennosides (Senna Liq) 8.8 mg DAILY PO 06/28/17 09:00 07/23/17 09:04 Albuterol/ Ipratropium (Duoneb Neb) 1 ampule Q2HR NEB PRN NEB SHORTNESS OF BREATH 06/29/17 08:30 07/13/17 20:43 Insulin Human Regular (NovoLIN R SUPPLEMENTAL SCALE) 1 ACHS SQ 07/02/17 12:00 07/22/17 21:23 Albuterol/ Ipratropium (Duoneb Neb) 1 ampule Q4HR NEB PRN INH SHORTNESS OF BREATH 07/05/17 17:00 07/06/17 20:26 Multi-Ingredient Mouthwash/Gargle (Magic Mouthwash Adult Liq) 5 ml QID SWISH-SWAL 07/09/17 09:00 07/22/17 21:09 Nystatin (Mycostatin Oint) 1 applic Q8HR TOPICAL 07/09/17 15:15 07/23/17 05:21 Miconazole Nitrate (Micatin 2% Cream) 1 applic Q12HR TOPICAL 07/09/17 21:00 07/22/17 21:08 Imatinib Mesylate (Gleevec) 400 mg HS PO 07/11/17 21:00 Future Hold 07/21/17 22:28 Lactobacillus Acidophilus (Lactinex) 1 tab TID PO 07/11/17 18:00 07/22/17 17:04 Lidocaine HCl (Xylocaine 2% Viscous) 15 ml Q4H PRN SWISH-SPIT prior to taking meds 07/12/17 10:15 07/15/17 08:26 Pantoprazole Sodium (Protonix) 40 mg Q12HR PO 07/12/17 21:00 07/23/17 09:03 Prednisone (Deltasone) 10 mg DAILY PO 07/17/17 09:00 07/23/17 09:04 Bacitracin (Baciguent Oint) 1 applic Q12HR TOPICAL 07/18/17 11:30 07/22/17 21:09 Objective Remarks GENERAL: Chronically ill male lying in bed in [facility]. SKIN: Warm and dry. HEAD: Normocephalic. EYES: No injection or drainage. NECK: Supple, trachea midline. CARDIOVASCULAR: +S1/S2 RESPIRATORY: anterior yates with rhonchi. On 3L O2 via NC GASTROINTESTINAL: Abdomen soft, non-tender, nondistended. EXTREMITIES: No cyanosis NEURO: awake and alert, normal speech. moving all extremities. 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 --EGD, 07/21 showed no esophageal ulcer. oral ulcer only. --on magic mouthwash --?HSV (3) Anemia ICD Codes: D64.9 - Anemia, unspecified Plan: 07/23/17: hgb 8.8. monitor CBC. no transfusion needed at present. (4) GI bleed ICD Codes: K92.2 - Gastrointestinal hemorrhage, unspecified Status: Acute Plan: --GI signed off on 07/15 --had incomplete colonoscopy on 07/14 which showed hemorrhoids. --Bleeding scan,07/10--> no active GI bleeding. Assessment 82 y/o male with history of CML. hematology consulted for pancytopenia Attending Statement The exam, history, and the medical decision-making described in the above note were completed with the assistance of the mid-level provider. I reviewed and agree with the findings presented. I attest that I had a [id number] encounter with the patient on the same day, and personally performed and documented my assessment and findings in the medical record. waiting to go down for c-scope. still has mouth sores and difficulty eating. Hold gleevec. d/w Mira Fong Jul 23, 2017 11:40 Fabrice Patel MD Jul 23, 2017 17:41
[2017-07-23] MEDS ORDERED: PROPOFOL 200 MG/20 ML AMP IV ONE (12:00)
[2017-07-23] MEDS ORDERED: PHENYLEPH/NS 1000 MCG/10 ML SYR IV ONE (12:00)
[2017-07-23] MEDS ORDERED: KETAMINE HCL 500 MG/5 ML VIAL ONE (12:41)
--- NOTE | 2017-07-23 13:29 | PD.PROCEDR ---
GI Procedure PROCEDURE PERFORMED Incomplete colonoscopy to the transverse colon poor prep INDICATION FOR PROCEDURE Bloody diarrhea PROCEDURE: The procedure, risks and benefits were discussed with Mr. Tabares and informed consent was obtained. Anesthesia sedated him with Diprivan. He was placed in the left lateral decubitus position. Colonoscopy: The Pentax videoscope was introduced through the rectum and advanced to proximal transverse colon. Retroflexion was performed in the rectum. Colonic prep was poor prep FINDINGS: What little colonic mucosa that was seen was unremarkable and there was one small polyp noted in the rectum but this was a very poor prep and this will have to be repeated tomorrow ESTIMATED BLOOD LOSS: None SPECIMENS REMOVED: None COMPLICATIONS: None IMPRESSION: Bloody diarrhea etiology unclear Colon polyp PLAN: Repeat colonoscopy tomorrow Kraig Garcia MD Jul 23, 2017 13:29
--- NOTE | 2017-07-23 13:50 | HHI.PR ---
Subjective Remarks in no acute distress. denies abdominal pain or nausea. no chest pain or sob. Objective Vitals Vital Signs Date Time Temp Pulse Resp B/P (MAP) Pulse Ox O2 Delivery O2 Flow Rate FiO2 07/23/17 13:31 99 Nasal Cannula 3.00 07/23/17 08:30 99 Nasal Cannula 3.00 07/23/17 08:30 98.6 88 20 104/62 (76) 99 07/23/17 08:30 76 07/23/17 05:21 98.0 79 18 109/66 (80) 98 07/23/17 04:16 85 07/23/17 00:26 97.7 80 15 93/51 (65) 97 07/23/17 00:23 78 07/22/17 22:00 16 07/22/17 21:06 Nasal Cannula 3.00 21 07/22/17 21:06 98.4 86 20 103/78 (86) 98 07/22/17 20:16 86 07/22/17 17:50 98.4 91 20 104/60 (75) 99 I/O 07/22/17 07/22/17 07/22/17 07/23/17 07/23/17 07/23/17 07:00 15:00 23:00 07:00 15:00 23:00 Intake Total 1200 ml 650 ml Output Total 402 ml 300 ml Balance 798 ml -300 ml 650 ml Intake Oral 1200 ml Other 650 ml Output Urine Total 400 ml 300 ml Stool Total 2 ml # Voids 1 2 # Bowel Movements 1 5 Result Diagram: 07/23/17 0715 07/22/17 0450 Imaging Last Impressions Modified Barium Swallow 07/21/17 0000 Signed Impressions: Service Date/Time: Friday, July 21, 2017 00:00 - CONCLUSION: Swallowing mechanism remains labored. Minimal vestibular penetration without aspiration due to rapid swallowing through a straw. Patient was unable to naturally swallow a barium tablet. Kendall Marti MD Chest X-Ray 07/19/17 0000 Signed Impressions: Service Date/Time: Wednesday, July 19, 2017 03:32 - CONCLUSION: Left basilar airspace disease suspected. Central venous catheter placement as above. Braulio Sellers MD Upper Extremity Ultrasound 07/18/17 0000 Signed Impressions: Service Date/Time: Tuesday, July 18, 2017 13:24 - CONCLUSION: 1. Occlusive thrombus within the proximal and mid aspect of the left cephalic vein. 2. The remaining veins of both upper extremities are patent. Alli Cohen MD GI Bleed Scan Nuclear Medicine 07/10/17 0000 Signed Impressions: Service Date/Time: June 16:42 - CONCLUSION: No active gastrointestinal bleeding Alli Teague MD Abdomen X-Ray 07/08/17 0600 Signed Impressions: Service Date/Time: Saturday, July 08, 2017 04:09 - CONCLUSION: Negative KUB. Alli Schroeder MD Abdomen/Pelvis CT 07/05/17 0000 Signed Impressions: Service Date/Time: Wednesday, July 05, 2017 15:06 - CONCLUSION: 1. Left lower lobe consolidation. 2. Dilated loops of proximal and mid small bowel. 3. Stable distal abdominal aortic aneurysm. 4. Stable sigmoid diverticulosis without evidence of diverticulitis. David Gutierrez MD Hepatobiliary Scan Nuclear Medicine 06/25/17 0000 Signed Impressions: Service Date/Time: Sunday, June 25, 2017 10:43 - CONCLUSION: 1. No evidence for cystic duct obstruction. 2. Biliary enteric reflux. Braulio Sellers MD Objective Remarks GENERAL: elderly male, in no apparent distress. CARDIOVASCULAR: Regular rate and regular rhythm without murmurs, gallops, or rubs. RESPIRATORY: Clear to auscultation. Breath sounds equal bilaterally. No wheezes , rales, or rhonchi. GASTROINTESTINAL: Abdomen soft, non-tender, nondistended. Normal, active bowel sounds MUSCULOSKELETAL: Extremities without clubbing, cyanosis, or edema. NEURO: Alert & Oriented x4 to person, place, time, situation. Moves all ext x4 Procedures Echo 06/26/2017 Mildly dilated left ventricle. The left ventricular systolic function is mildly reduced with an estimated ejection fraction in the range of 45- 50%. Wall thickness is normal. A pacemaker wire is noted. There is a pacemaker wire present in the right atrial cavity. [id number] mitral valve regurgitation. There is trace tricuspid valve regurgitation. Medications and IVs Inpatient Medications Acetaminophen (Tylenol) 650 mg Q4H PRN PO SEE LABEL COMMENTS Last administered on 07/19/17t 13:57; Start 07/19/17 at 08:00; Stop 07/19/17 at 13:58; Status DC Albuterol Sulfate (Albuterol Neb) 2.5 mg Q2HR NEB PRN INH SOB/WHEEZING Last administered on 06/29/17 08:00; Start 06/24/17 at 20:30; Stop 06/29/17 at 08 :40; Status DC Albuterol/ Ipratropium (Duoneb Neb) 1 ampule Q4HR NEB PRN INH SHORTNESS OF BREATH Last administered on 07/06/17 20:26; Start 07/05/17 at 17:00 Amiodarone HCl (Cordarone) 200 mg DAILY PO Last administered on 07/23/17 09: 04; Start 06/25/17 at 09:00 Bacitracin (Baciguent Oint) 1 applic Q12HR TOPICAL Last administered on 21:09; Start 07/18/17 at 11:30 Benzocaine (Hurricaine 20% Oral Spr) 1 spray ONCE ONCE OROPHARYNG Last administered on 07/21/17 16:53; Start 07/21/17 at 16:53; Stop 07/21/17 at 16 :54; Status DC Bisacodyl (Dulcolax Ec) 20 mg ONCE ONCE PO Last administered on 07/13/17 16: 37; Start 07/13/17 at 15:15; Stop 07/13/17 at 15:16; Status DC Bisacodyl (Dulcolax Supp) 10 mg DAILY PRN RECTAL SEVERE CONSITIPATION Last administered on 06/28/17 08:31; Start 06/24/17 at 20:30 Chlorhexidine Gluconate (Chlorhexidine 2% Cloth) 3 pack HR PAYROLL COORDINATOR PRN TOPICAL SEE LABEL COMMENTS; Start 07/13/17 at 20:45; Stop 07/16/17 at 20:44; Status DC Dextrose (D50w (Vial) Inj) 50 ml UNSCH PRN IV PUSH HYPOGLYCEMIA-SEE COMMENTS Last administered on 06/24/17 21:15; Start 06/24/17 at 20:30 Dextrose/Sodium Chloride 1,000 ml @ 75 mls/hr [id number] IV Last administered on 06/29/17 00:12; Start 06/28/17 at 08:45; Stop 06/29/17 at 09:55; Status DC Diatrizoate Meglum/ Diatrizoate Sod ( Gastrolidia Liq) 18 ml ONCE ONCE PO Last administered on 07/05/17 10:15; Start 07/05/17 at 10:15; Stop 07/05/17 at 10:16; Status DC Diphenhydramine HCl (Benadryl) 25 mg Q4H PRN PO SEE LABEL COMMENTS Last administered on 07/19/17 13:57; Start 07/19/17 at 08:00; Stop 07/19/17 at 13:58 ; Status DC Fluconazole (Diflucan) 100 mg DAILY PO Last administered on 07/16/17 09:17; Start 07/11/17 at 18:45; Stop 07/16/17 at 18:44; Status DC Furosemide (Lasix Inj) 20 mg UNSCH X1 IV PUSH ; Start 07/19/17 at 11:15; Stop 07/19/17 at 15:00; Status DC Glucagon (Glucagon Inj) 1 mg UNSCH PRN OTHER HYPOGLYCEMIA-SEE COMMENTS; Start 06/24/17 at 20:30 Heparin Sodium (Porcine) (Heparin Inj) 2,500 units UNSCH PRN IV PUSH APTT 25 TO 39; Start 07/21/17 at 01:45; Stop 07/21/17 at 01:45; Status DC Heparin Sodium/ Dextrose 250 ml @ 10 mls/hr TITRATE PRN IV Coagulation Management; Start 07/20/17 at 19:45; Stop 07/20/17 at 21:18; Status DC Hydrocortisone Sodium Succinate (SoluCORTEF INJ) 50 mg Q6H IV PUSH Last administered on 07/02/17 09:44; Start 06/25/17 at 15:00; Stop 07/02/17 at 12 :09; Status DC Imatinib Mesylate (Gleevec) 400 mg HS PO Last administered on 07/21/17 22:28 ; Start 07/11/17 at 21:00; Status Future Hold Influenza Virus Vaccine (Flu (Quadrivalent) Vaccine Inj) 0.5 ml ONCE ONCE IM ; Start 06/26/17 at 10:00; Stop 06/26/17 at 10:01; Status DC Insulin Human Regular (NovoLIN R SUPPLEMENTAL SCALE) 1 ACHS SQ Last administered on 07/22/17 21:23; Start 07/02/17 at 12:00 Lactated Ringer's 1,000 ml @ 30 mls/hr Q24H PRN IV SEE LABEL COMMENTS; Start 07/13/17 at 20:45; Stop 07/16/17 at 20:44; Status DC Lactobacillus Acidophilus (Lactinex) 1 tab TID PO Last administered on 17:04; Start 07/11/17 at 18:00 Lactulose (Lactulose Liq) 30 ml BID PO Last administered on 07/09/17 09:44; Start 07/04/17 at 09:00; Stop 07/10/17 at 14:23; Status DC Levofloxacin (Levaquin) 750 mg DAILY PO Last administered on 07/11/17 23:25; Start 07/11/17 at 18:45; Stop 07/12/17 at 10:01; Status DC Levofloxacin/ Dextrose 150 ml @ 100 mls/hr Q48H IV Last administered on 23:24; Start 07/13/17 at 23:00; Stop 07/18/17 at 22:59; Status DC Lidocaine HCl (Xylocaine 2% Viscous) 15 ml Q4H PRN SWISH-SPIT prior to taking meds Last administered on 07/15/17 08:26; Start 07/12/17 at 10:15 Lidocaine/ Diphenhydr/Alum/ Mg/Simeth (Magic Mouthwash Pediatric/Adult Liq) 5 ml ACHS SWISH-SWAL ; Start 07/09/17 at 12:00; Stop 07/09/17 at 12:05; Status DC Magnesium Hydroxide (Milk Of Magnesia Liq) 30 ml DAILY PRN PO mild constipation ; Start 06/26/17 at 15:45; Stop 07/04/17 at 08:39; Status DC Magnesium Citrate (Citroma Liq) 300 ml ONCE ONCE PO ; Start 07/24/17 at 05:00 ; Stop 07/24/17 at 05:01 Methadone HCl (Methadone Liq) 2.5 mg BID PO Last administered on 07/23/17 09 :03; Start 06/24/17 at 21:00 Methylnaltrexone [place] (Relistor Inj) 6 mg ONCE ONCE SQ Last administered on 07/04/17 11:15; Start 07/04/17 at 10:45; Stop 07/04/17 at 10:46; Status DC Methylprednisolone Sodium Succinate (SoluMEDROL INJ) 40 mg Q12HR IV PUSH Last administered on 07/12/17 09:21; Start 07/06/17 at 21:00; Stop 07/12/17 at 10: 11; Status DC Miconazole Nitrate (Micatin 2% Cream) 1 applic Q12HR TOPICAL Last administered on 07/22/17 21:08; Start 07/09/17 at 21:00 Miscellaneous Information ALL NURSING DEPARTME... UNSCH PRN .XX SEE LABEL COMMENTS; Start 07/21/17 at 16:30; Stop 07/22/17 at 16:29; Status DC Morphine Sulfate (Morphine Inj) 4 mg Q3H PRN IV PUSH pain 6-10 Last administered on 07/06/17 02:26; Start 06/24/17 at 23:15 Multi-Ingredient Mouthwash/Gargle (Magic Mouthwash Adult Liq) 5 ml QID SWISH- SWAL Last administered on 07/22/17 21:09; Start 07/09/17 at 09:00 Norepinephrine Bitartrate 4 mg/ Sodium Chloride 250 ml @ 7.5 mls/hr TITRATE PRN IV Blood pressure management Last administered on 06/24/17 21:27; Start 06/24/17 at 21:00; Stop 06/27/17 at 09:45; Status DC Nystatin (Mycostatin Liq) 5 ml QID SWISH-SWAL Last administered on 07/22/17 10:08; Start 07/09/17 at 13:00; Stop 07/22/17 at 10:59; Status DC Nystatin (Mycostatin Oint) 1 applic Q8HR TOPICAL Last administered on 05:21; Start 07/09/17 at 15:15 Ondansetron HCl (Zofran Inj) 4 mg Q6H PRN IV PUSH NAUSEA OR VOMITING Last administered on 07/03/17 17:30; Start 06/24/17 at 20:30 Pantoprazole Sodium (Protonix Inj) 40 mg DAILY IV PUSH Last administered on 08:55; Start 06/25/17 at 09:00; Stop 06/30/17 at 14:05; Status DC Pantoprazole Sodium (Protonix) 40 mg Q12HR PO Last administered on 07/23/17 09:03; Start 07/12/17 at 21:00 Piperacillin Sod/ Tazobactam Sod 50 ml @ 200 mls/hr Q6HR IV Last administered on 07/11/17 18:00; Start 07/06/17 at 18:00; Stop 07/11/17 at 18:38; Status DC Polyethylene Glycol/ Electrolytes (Colyte Liq) 4,000 ml ONCE ONCE PO ; Start 07/22/17 at 16:00; Stop 07/22/17 at 16:00; Status DC Potassium Chloride 100 ml @ 50 mls/hr ONCE ONCE IV Last administered on 07/05 10:00; Start 07/05/17 at 10:00; Stop 07/05/17 at 11:59; Status DC Povidone Iodine (Betadine 5% Antisepsis Kit) 1 applic HR PAYROLL COORDINATOR PRN EACH NARE SEE LABEL COMMENTS; Start 07/13/17 at 20:45; Stop 07/16/17 at 20:44; Status DC Prednisone (Deltasone) 10 mg DAILY PO Last administered on 07/23/17 09:04; Start 07/17/17 at 09:00 Senna/Docusate Sodium (Olesya-Colace) 1 tab BID PO ; Start 06/24/17 at 21:00; Stop 06/24/17 at 21:16; Status DC Sennosides (Senna Liq) 8.8 mg DAILY PO Last administered on 07/23/17 09:04; Start 06/28/17 at 09:00 Sennosides (Senokot) 17.2 mg Q12H PRN PO Moderate constipation; Start at 20:30 Sodium Bicarbonate 75 meq/Dextrose/ Sodium Chloride 1,075 ml @ 75 mls/hr [id number] IV Last administered on 07/01/17 04:40; Start 06/29/17 at 11:00; Stop 07/02/17 at 10:39; Status DC Sodium Biphosphate/ Sodium Phosphate (Fleets Enema (Adult)) 133 ml UNSCH PRN RECTAL MOST SEVERE CONSTIPATION; Start 06/26/17 at 15:45; Stop 07/04/17 at 08: 39; Status DC Sodium Chloride 250 ml @ 15 mls/hr ONCE ONCE IV Last administered on 11:00; Start 07/19/17 at 11:15; Stop 07/20/17 at 03:54; Status DC Sodium Chloride (NS Flush) UNSCH PRN IV FLUSH SEE PROTOCOL Last administered on 07/20/17 20:36; Start 06/24/17 at 21:30 Sucralfate (Carafate Liq) 1 gm ACHS PO Last administered on 07/22/17 10:08; Start 07/09/17 at 08:00; Stop 07/22/17 at 10:59; Status DC Terbutaline Sulfate (Brethine Inj) 1 mg UNSCH PRN SQ For Extravasation; Start 06/24/17 at 21:00 Vancomycin HCl 1000 mg/Sodium Chloride 250 ml @ 250 mls/hr ONCE STAT IV Last administered on 06/24/17 20:21; Start 06/24/17 at 18:58; Stop 06/24/17 at 19 :57; Status DC A/P Problem List: (1) Diverticulosis ICD Code: K57.90 - Diverticulosis of intestine, part unspecified, without perforation or abscess without bleeding (2) ALEJANDRA (obstructive sleep apnea) ICD Code: G47.33 - Obstructive sleep apnea (adult) (pediatric) Status: Chronic (3) Acute respiratory failure ICD Code: J96.00 - Acute respiratory failure, unspecified whether with hypoxia or hypercapnia (4) Acute kidney injury ICD Code: N17.9 - Acute kidney failure, unspecified Status: Acute (5) Thrombocytopenia ICD Code: D69.6 - Thrombocytopenia, unspecified Status: Acute (6) Macrocytic anemia ICD Code: D53.9 - Nutritional anemia, unspecified Status: Chronic (7) Diabetes mellitus ICD Code: E11.9 - Type 2 diabetes mellitus without complications (8) Chronic systolic heart failure ICD Code: I50.22 - Chronic systolic (congestive) heart failure Status: Chronic (9) Sepsis ICD Code: A41.9 - Sepsis, unspecified organism Status: Acute (10) GI bleed ICD Code: K92.2 - Gastrointestinal hemorrhage, unspecified Status: Acute (11) Bacteremia due to Klebsiella pneumoniae ICD Code: R78.81 - Bacteremia Status: Acute (12) Ileus ICD Code: K56.7 - Ileus, unspecified Status: Resolved (13) Candidiasis of mouth and esophagus ICD Code: B37.81 - Candidal esophagitis; B37.0 - Candidal stomatitis Status: Acute (14) Pneumonia ICD Code: J18.9 - Pneumonia, unspecified organism Status: Acute (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, BCR/ABL-positive, not having achieved remission Status: Chronic (16) Pancytopenia ICD Code: D61.818 - Other pancytopenia Status: Chronic (17) COPD (chronic obstructive pulmonary disease) ICD Code: J44.9 - Chronic obstructive pulmonary disease, unspecified Status: Chronic (18) Acute renal failure ICD Code: N17.9 - Acute kidney failure, unspecified Status: Acute (19) Iron deficiency anemia ICD Code: D50.9 - Iron deficiency anemia, unspecified Status: Acute (20) AICD (automatic cardioverter/defibrillator) present ICD Code: Z95.810 - Presence of automatic (implantable) cardiac defibrillator Status: Acute (21) Anemia associated with acute blood loss ICD Code: D62 - Acute posthemorrhagic anemia Status: Acute (22) Cardiomyopathy ICD Code: I42.9 - Cardiomyopathy, unspecified Status: Chronic (23) Left bundle branch block ICD Code: I44.7 - Left bundle-branch block, unspecified Status: Chronic (24) Paroxysmal ventricular tachycardia ICD Code: I47.2 - Ventricular tachycardia Status: Resolved Assessment and Plan A/P Sepsis, hypotension - resolved. blood cultures 07/06 were positive for Klebsiella pneumoniae, also has a left lower lobe lung consolidation. blood culture 07/08 with staph epidermidis likely contaminant. treated with antibiotic and evaluated by ID. Abdominal pain, Ileus - resolved . Cont. Lactulose, Senna, Pericolace, Dulcolax supp Hospital-acquired pneumonia - stable on 2 L nasal cannula Previous chest x-rays and CT abdomen pelvis did not identify any lung infiltrates. However, abd CT 07/05 did show LLL consolidation. Infectious disease following, finished the course of antibiotic. Repeat cxr 07/13 showed left lower lobe infiltrate. COPD - followed by Dr. Pelaez as outpatient. On prednisone taper. Duo nebs as needed. Chronic pain - cont methadone 2.5 mg twice a day and morphine 2 mg IV every 3 hours when necessary. Oral thrush, and odynophagia Dysphagia sucralfate was ordered by oncology team. on nystatin and magic mouth wash. Status post course of Diflucan per ID. lidocaine swish and spit prior to taking by mouth meds. GI input appreciated. S/p EGD 07/13 showing mild gastritis in the antrum and distal esophagitis - biopsies were negative for CMV/HSV, did show acute and chronic esophagitis, negative for H. pylori had barium swallow. GI following. Hematochezia bleeding scan 07/10 negative. H&H declined 6.12/27. Transfuse 2 units of blood. Give Lasix in between units. EGD 07/13 - mild esophagitis, gastritis cont protonix, monitor H&H Status post colonoscopy on 07/14 showing incomplete prep and internal and external hemorrhoids. had repeated colonoscopy earlier- awaiting GI recommendations. Pancytopenia, CML Heme/onc following. Gleevec resumed 07/11 - on hold for now for thrombocytopenia. No anti-coagulation due to pancytopenia. HIT negative. Follow CBC Acute kidney injury. Chronic kidney disease possibly stage 3-4 Creatinine has improved. Nephrology is following. s/p diuresis. Holding lasix due to hypernatremia - gently hydrated with IV fluids. BL upper extremity edema. Doppler US to r/o DVT, with superficial DVT no anticoagulation. Hypernatremia -resolved. Chronic systolic congestive heart failure Echo from this admission shows ejection fraction 45-50% monitor for any fluid overload, monitor I/O. consider resuming PO lasix if sodium remains stable. elevated troponin cardiology consult appreciated; no interventions at this time. Buttock and leg wounds: wound care following and has made recs, appreciate assistance History of ventricular tachycardia status post AICD. Continue amiodarone. DVT px - SCDs. No anti-coagulation due to thrombocytopenia. PT/OT following DO NOT RESUSCITATE status Discharge Planning awaiting GI follow-up and recommendations. Problem Qualifiers (1) Diverticulosis: (2) Acute respiratory failure: Qualified Codes: J96.02 - Acute respiratory failure with hypercapnia (3) Diabetes mellitus: Qualified Codes: E11.8 - Type 2 diabetes mellitus with unspecified complications (4) Pneumonia: Nicolas Howe MD Jul 23, 2017 13:50
[2017-07-23] MEDS: BISACODYL EC 5 MG TABEC PO SCH (20:53)
[2017-07-24] VITALS (8 sets, daily range): BP systolic 100–137; BP diastolic 60–77; PULSE 69–90; RESP 16–18; TEMP 97.2–99.1; O2SAT 94–98
[2017-07-24] MEDS: CHLORHEXIDINE GLUCONATE 2 % 1 PACK (2 CLOTHS) TOP SCH (03:35)
[2017-07-24] MEDS: NYSTATIN 100,000 U/GM OINT 15 GM TUBE TOPICAL SCH ×3 (04:24→22:00)
[2017-07-24] MEDS: ONDANSETRON HCL 4 MG/2 ML VIAL IV PUSH PRN (04:38)
[2017-07-24 04:58] LABS: AUTOMATED NEUTROPHIL # 3.6 TH/MM3 (1.8-7.7); BASOPHIL % 0.5 % (0.0-2.0); EOSINOPHIL % 0.5 % (0.0-4.0); HEMATOCRIT 25.1 % (39.0-51.0); HEMOGLOBIN 8.4 GM/DL (13.0-17.0); LYMPH % 38.3 % (9.0-44.0); LYMPHOCYTE # 2.4 TH/MM3 (1.0-4.8); MEAN CELL VOLUME 91.4 FL (80.0-100.0); MEAN CORPUSCULAR HEMOGLOBIN 30.7 PG (27.0-34.0); MEAN CORPUSCULAR HGB CONC 33.6 % (32.0-36.0); MEAN PLATELET VOLUME 8.8 FL (7.0-11.0); MONO % 3.7 % (0.0-8.0); MONOCYTE # 0.2 TH/MM3 (0-0.9); PLATELET COUNT 63 TH/MM3 (150-450); RED BLOOD COUNT 2.74 MIL/MM3 (4.50-5.90); RED CELL DISTRIBUTION WIDTH 18.7 % (11.6-17.2); WHITE BLOOD COUNT 6.3 TH/MM3 (4.0-11.0)
[2017-07-24] MEDS ORDERED: MAGNESIUM CITRATE SOLN 300 ML BTL PO ONE (05:00)
[2017-07-24 05:19] LABS: BICARBONATE 35.3 MEQ/L (21.0-32.0); CALCIUM 7.1 MG/DL (8.5-10.1); CREATININE 1.45 MG/DL (0.60-1.30)
[2017-07-24 05:32] LABS: CALCIUM-PROTEIN CORRECTED 8.5 MG/DL (8.5-10.1); TOTAL PROTEIN 4.5 GM/DL (6.4-8.2)
[2017-07-24 08:00] LABS: TOXIC GRANULATION 1+ (NORMAL)
[2017-07-24] MEDS: NYSTAT/DIPHENHY/LIDO MOUTHWASH (Adult) 120ML SWISH-SWAL SCH ×4 (09:00→21:00)
[2017-07-24] MEDS: AMIODARONE 200 MG TAB PO SCH (09:00)
[2017-07-24] MEDS: SENNOSIDES SYRUP 8.8 MG/5 ML CUP PO SCH (09:00)
[2017-07-24] MEDS: METHADONE HCL 10 MG/10 ML ORAL SOLUTION PO SCH ×2 (09:00→23:22)
[2017-07-24] MEDS: PANTOPRAZOLE SOD 40 MG DELAYED RELEASE TAB PO SCH ×2 (09:00→23:21)
[2017-07-24] MEDS: DOCUSATE SODIUM 50 MG/SENNA 8.6 MG TAB PO SCH ×2 (09:00→21:00)
[2017-07-24] MEDS: LACTOBACILLUS ACIDOPHILUS TAB PO SCH ×3 (09:00→17:23)
[2017-07-24] MEDS: INSULIN NovoLIN REGULAR SUPPLEMENTAL SCALE SQ SCH ×3 (10:45→21:00)
[2017-07-24] MEDS: SODIUM CHLORIDE 0.9% FLUSH 10 ML FLUSH IV FLUSH SCH ×3 (10:45→23:21)
[2017-07-24] MEDS: BACITRACIN TOP OINT 15 GM TUBE TOPICAL SCH ×2 (10:45→21:00)
[2017-07-24] MEDS ORDERED: LIDOCAINE HCL 1% PF 5 ML SYRINGE OTHER ONE (12:00)
[2017-07-24] MEDS ORDERED: PHENYLEPH/NS 1000 MCG/10 ML SYR IV ONE (12:00)
[2017-07-24] MEDS ORDERED: PROPOFOL 200 MG/20 ML AMP IV ONE (12:00)
--- NOTE | 2017-07-24 14:00 | PD.PROCEDR ---
GI Procedure PROCEDURE PERFORMED Colonoscopy with biopsy and snare polypectomy INDICATION FOR PROCEDURE Bloody diarrhea PROCEDURE: The procedure, risks and benefits were discussed with Mr. Tabares and informed consent was obtained. Anesthesia sedated him with Diprivan. He was placed in the left lateral decubitus position. Colonoscopy: The Pentax videoscope was introduced through the rectum and advanced to cecum where the ileocecal valve and appendiceal orifice were identified. Retroflexion was performed in the rectum. Colonic prep was good FINDINGS: Colonic withdrawal time greater than 6 minutes as the scope slowly withdrawn colonic mucosa was carefully inspected the patient was noted to have multiple ulcerations in the ascending colon and proximal two thirds of the transverse colon there were all superficial linear and round and connecting most likely resembling an ischemic event possibly Crohn's the more distal colon was unremarkable for inflammation or ulceration multiple biopsies were taken patient was also noted to have multiple diverticuli this was mild in the transverse and the descending and moderate in the sigmoid region a medium size polyp was noted in the rectum and this was sessile as was excised using cold snare technique and retrieved for further evaluation retroflexion was unremarkable in the rectum and so was rectal examination ESTIMATED BLOOD LOSS: None SPECIMENS REMOVED: : Biopsies COMPLICATIONS: None IMPRESSION: Colon polyp Colonic ulcerations possible ischemic event Diverticulosis PLAN: We'll need to obtain a vascular study CTA versus MRA Await biopsy Supportive care Monitor labs and transfuse if needed Colonoscopy in 5 years Kraig Garcia MD Jul 24, 2017 14:00
--- NOTE | 2017-07-24 15:39 | PD.ONC.PN ---
Subjective Subjective Remarks Afebrile overnight. Patient resting in bed in nad. Objective Data Date Time Temp Pulse Resp B/P (MAP) Pulse Ox O2 Delivery O2 Flow Rate FiO2 07/24/17 15:01 97.2 82 18 114/67 (83) 98 07/24/17 14:00 98.1 74 20 92/50 (64) 94 07/24/17 13:46 94 Nasal Cannula 3.00 07/24/17 10:38 97.8 84 16 100/60 (73) 94 07/24/17 10:35 Nasal Cannula 2.00 07/24/17 04:00 90 07/24/17 00:00 69 07/23/17 22:47 18 07/23/17 21:35 Nasal Cannula 3.00 07/23/17 21:35 67 07/23/17 21:35 98.6 88 18 135/69 (91) 94 07/23/17 17:00 98.8 75 20 123/62 (82) 98 07/24/17 07/24/17 07/24/17 07:00 15:00 23:00 Intake Total 200 ml Balance 200 ml Result Diagram: 07/24/17 0420 07/24/17 0420 Laboratory Results Laboratory Tests Test 07/24/17 04:20 White Blood Count 6.3 TH/MM3 Red Blood Count 2.74 MIL/MM3 Hemoglobin 8.4 GM/DL Hematocrit 25.1 % Mean Corpuscular Volume 91.4 FL Mean Corpuscular Hemoglobin 30.7 PG Mean Corpuscular Hemoglobin Concent 33.6 % Red Cell Distribution Width 18.7 % Platelet Count 63 TH/MM3 Mean Platelet Volume 8.8 FL Neutrophils (%) (Auto) 57.0 % Lymphocytes (%) (Auto) 38.3 % Monocytes (%) (Auto) 3.7 % Eosinophils (%) (Auto) 0.5 % Basophils (%) (Auto) 0.5 % Neutrophils # (Auto) 3.6 TH/MM3 Lymphocytes # (Auto) 2.4 TH/MM3 Monocytes # (Auto) 0.2 TH/MM3 Eosinophils # (Auto) 0.0 TH/MM3 Basophils # (Auto) 0.0 TH/MM3 CBC Comment AUTO DIFF Differential Comment AUTO DIFF CONFIRMED Toxic Granulation 1+ Blood Urea Nitrogen 21 MG/DL Creatinine 1.45 MG/DL Random Glucose 92 MG/DL Total Protein 4.5 GM/DL Calcium Level 7.1 MG/DL Sodium Level 145 MEQ/L Potassium Level 3.9 MEQ/L Chloride Level 108 MEQ/L Carbon Dioxide Level 35.3 MEQ/L Anion Gap 2 MEQ/L Estimat Glomerular Filtration Rate 47 ML/MIN Protein Corrected Calcium 8.5 MG/DL Administered Medications Medications (Trade) Dose Ordered Sig/Sunil Route PRN Reason Start Time Stop Time Status Last Admin Dose Admin Sodium Chloride (NS Flush) 2 ml UNSCH PRN IV FLUSH FLUSH AFTER USING IV ACCESS 06/24/17 20:30 07/22/17 13:30 Sodium Chloride (NS Flush) 2 ml BID IV FLUSH 06/24/17 21:00 07/24/17 10:45 Ondansetron HCl (Zofran Inj) 4 mg Q6H PRN IV PUSH NAUSEA OR VOMITING 06/24/17 20:30 07/24/17 04:38 Chlorhexidine Gluconate (Chlorhexidine 2% Cloth) Taper DAILY@04 TOP 06/25/17 04:00 06/21/18 03:59 07/01/17 04:00 Senna/Docusate Sodium (Olesya-Colace) 1 tab BID PO 06/24/17 21:00 07/23/17 20:53 Bisacodyl (Dulcolax Supp) 10 mg DAILY PRN RECTAL SEVERE CONSITIPATION 06/24/17 20:30 06/28/17 08:31 Amiodarone HCl (Cordarone) 200 mg DAILY PO 06/25/17 09:00 07/23/17 09:04 Methadone HCl (Methadone Liq) 2.5 mg BID PO 06/24/17 21:00 07/23/17 20:54 Dextrose (D50w (Vial) Inj) 50 ml UNSCH PRN IV PUSH HYPOGLYCEMIA-SEE COMMENTS 06/24/17 20:30 06/24/17 21:15 Sodium Chloride (NS Flush) DAILY IV FLUSH 06/25/17 09:00 07/24/17 10:45 Sodium Chloride (NS Flush) UNSCH PRN IV FLUSH SEE PROTOCOL 06/24/17 21:30 07/20/17 20:36 Morphine Sulfate (Morphine Inj) 2 mg Q3H PRN IV PUSH pain 1-5 06/24/17 23:15 07/23/17 16:27 Morphine Sulfate (Morphine Inj) 4 mg Q3H PRN IV PUSH pain 6-10 06/24/17 23:15 07/06/17 02:26 Bisacodyl (Dulcolax Ec) 10 mg HS PO 06/26/17 21:00 07/23/17 20:53 Sennosides (Senna Liq) 8.8 mg DAILY PO 06/28/17 09:00 07/23/17 09:04 Albuterol/ Ipratropium (Duoneb Neb) 1 ampule Q2HR NEB PRN NEB SHORTNESS OF BREATH 06/29/17 08:30 07/13/17 20:43 Insulin Human Regular (NovoLIN R SUPPLEMENTAL SCALE) 1 ACHS SQ 07/02/17 12:00 07/22/17 21:23 Albuterol/ Ipratropium (Duoneb Neb) 1 ampule Q4HR NEB PRN INH SHORTNESS OF BREATH 07/05/17 17:00 07/06/17 20:26 Multi-Ingredient Mouthwash/Gargle (Magic Mouthwash Adult Liq) 5 ml QID SWISH-SWAL 07/09/17 09:00 07/23/17 20:54 Nystatin (Mycostatin Oint) 1 applic Q8HR TOPICAL 07/09/17 15:15 07/24/17 14:00 Imatinib Mesylate (Gleevec) 400 mg HS PO 07/11/17 21:00 Future Hold 07/21/17 22:28 Lactobacillus Acidophilus (Lactinex) 1 tab TID PO 07/11/17 18:00 07/22/17 17:04 Lidocaine HCl (Xylocaine 2% Viscous) 15 ml Q4H PRN SWISH-SPIT prior to taking meds 07/12/17 10:15 07/15/17 08:26 Pantoprazole Sodium (Protonix) 40 mg Q12HR PO 07/12/17 21:00 07/23/17 20:53 Prednisone (Deltasone) 10 mg DAILY PO 07/17/17 09:00 07/23/17 09:04 Bacitracin (Baciguent Oint) 1 applic Q12HR TOPICAL 07/18/17 11:30 07/23/17 20:57 Objective Remarks GENERAL: Deconditioned male supine in bed watching TV SKIN: Warm and dry. HEAD: Normocephalic. EYES: no injection or drainage. NECK: Supple, trachea midline. CARDIOVASCULAR: Regular rate and rhythm RESPIRATORY: anterior yates with occasional rhonchi GASTROINTESTINAL: Abdomen soft, non-tender, nondistended. EXTREMITIES: No cyanosis NEUROLOGICAL: No obvious focal deficit. Awake, alert, and oriented x3. 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 continue to hold Gleevac -- Was originally diagnosed in 1998 (2) Anemia ICD Codes: D64.9 - Anemia, unspecified Plan: 07/24: Colonoscopy today showed multiple ulcerations in the ascending colon and proximal two thirds of the transverse colon most likely resembling an ischemic event possibly Crohn's. (3) GI bleed ICD Codes: K92.2 - Gastrointestinal hemorrhage, unspecified Status: Acute Plan: Colonoscopy, 07/24 showed multiple ulcerations in the ascending colon and proximal two thirds of the transverse colon most likely resembling an ischemic event possibly Crohn's. --GI signed off on 07/15 --had incomplete colonoscopy on 07/14 which showed hemorrhoids. --Bleeding scan,07/10--> no active GI bleeding. Assessment 82 y/o male with history of CML. hematology consulted for pancytopenia Attending Statement The exam, history, and the medical decision-making described in the above note were completed with the assistance of the mid-level provider. I reviewed and agree with the findings presented. I attest that I had a [id number] encounter with the patient on the same day, and personally performed and documented my assessment and findings in the medical record. No new c/o plat are ,100, hold gleevec. monitor cbc Mira Zepeda Jul 24, 2017 15:39 Fabrice Patel MD Jul 24, 2017 19:46
--- NOTE | 2017-07-24 16:41 | HHI.PR ---
Subjective Remarks Patient states he feels fine. Denies abdominal pain, shortness of breath. He underwent colonoscopy today. Discussed with patient and at bedside. Objective Vitals Vital Signs Date Time Temp Pulse Resp B/P (MAP) Pulse Ox O2 Delivery O2 Flow Rate FiO2 07/24/17 15:01 97.2 82 18 114/67 (83) 98 07/24/17 14:00 98.1 74 20 92/50 (64) 94 07/24/17 13:46 94 Nasal Cannula 3.00 07/24/17 10:38 97.8 84 16 100/60 (73) 94 07/24/17 10:35 Nasal Cannula 2.00 07/24/17 04:00 90 07/24/17 00:00 69 07/23/17 22:47 18 07/23/17 21:35 Nasal Cannula 3.00 07/23/17 21:35 67 07/23/17 21:35 98.6 88 18 135/69 (91) 94 07/23/17 17:00 98.8 75 20 123/62 (82) 98 I/O 07/23/17 07/23/17 07/23/17 07/24/17 07/24/17 07/24/17 07:00 15:00 23:00 07:00 15:00 23:00 Intake Total 650 ml 960 ml 200 ml Output Total 300 ml Balance -300 ml 650 ml 960 ml 200 ml Intake Oral 960 ml Other 650 ml 200 ml Output Urine Total 300 ml # Voids 4 1 # Bowel Movements 5 4 4 Result Diagram: 07/24/1741907/24/17419 Objective Remarks GENERAL: pleasant somewhat chronically ill appearing elderly obese male patient. SKIN: Warm and dry. Multiple tattoos on extremities. HEAD: Normocephalic. EYES: No scleral icterus. No injection or drainage. NECK: Supple, trachea midline. No JVD or lymphadenopathy. CARDIOVASCULAR: Regular rate and rhythm without murmurs, gallops, or rubs. RESPIRATORY: Breath sounds equal bilaterally. No accessory muscle use. CTAB. GASTROINTESTINAL: Abdomen soft, non-tender, nondistended. EXTREMITIES: No pedal edema. 1+ edema bilateral hands and forearms. NEUROLOGICAL: Awake, alert, and oriented x 3. Non-focal. Procedures Echo 06/26/2017 Mildly dilated left ventricle. The left ventricular systolic function is mildly reduced with an estimated ejection fraction in the range of 45- 50%. Wall thickness is normal. A pacemaker wire is noted. There is a pacemaker wire present in the right atrial cavity. [id number] mitral valve regurgitation. There is trace tricuspid valve regurgitation. A/P Problem List: (1) Diverticulosis ICD Code: K57.90 - Diverticulosis of intestine, part unspecified, without perforation or abscess without bleeding (2) ALEJANDRA (obstructive sleep apnea) ICD Code: G47.33 - Obstructive sleep apnea (adult) (pediatric) Status: Chronic (3) Acute respiratory failure ICD Code: J96.00 - Acute respiratory failure, unspecified whether with hypoxia or hypercapnia (4) Acute kidney injury ICD Code: N17.9 - Acute kidney failure, unspecified Status: Acute (5) Thrombocytopenia ICD Code: D69.6 - Thrombocytopenia, unspecified Status: Acute (6) Macrocytic anemia ICD Code: D53.9 - Nutritional anemia, unspecified Status: Chronic (7) Diabetes mellitus ICD Code: E11.9 - Type 2 diabetes mellitus without complications (8) Chronic systolic heart failure ICD Code: I50.22 - Chronic systolic (congestive) heart failure Status: Chronic (9) Sepsis ICD Code: A41.9 - Sepsis, unspecified organism Status: Acute (10) GI bleed ICD Code: K92.2 - Gastrointestinal hemorrhage, unspecified Status: Acute (11) Bacteremia due to Klebsiella pneumoniae ICD Code: R78.81 - Bacteremia Status: Acute (12) Ileus ICD Code: K56.7 - Ileus, unspecified Status: Resolved (13) Candidiasis of mouth and esophagus ICD Code: B37.81 - Candidal esophagitis; B37.0 - Candidal stomatitis Status: Acute (14) Pneumonia ICD Code: J18.9 - Pneumonia, unspecified organism Status: Acute (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, BCR/ABL-positive, not having achieved remission Status: Chronic (16) Pancytopenia ICD Code: D61.818 - Other pancytopenia Status: Chronic (17) COPD (chronic obstructive pulmonary disease) ICD Code: J44.9 - Chronic obstructive pulmonary disease, unspecified Status: Chronic (18) Acute renal failure ICD Code: N17.9 - Acute kidney failure, unspecified Status: Acute (19) Iron deficiency anemia ICD Code: D50.9 - Iron deficiency anemia, unspecified Status: Acute (20) AICD (automatic cardioverter/defibrillator) present ICD Code: Z95.810 - Presence of automatic (implantable) cardiac defibrillator Status: Acute (21) Anemia associated with acute blood loss ICD Code: D62 - Acute posthemorrhagic anemia Status: Acute (22) Cardiomyopathy ICD Code: I42.9 - Cardiomyopathy, unspecified Status: Chronic (23) Left bundle branch block ICD Code: I44.7 - Left bundle-branch block, unspecified Status: Chronic (24) Paroxysmal ventricular tachycardia ICD Code: I47.2 - Ventricular tachycardia Status: Resolved Assessment and Plan 82-year-old male who was admitted on 06/24/2017 due to abdominal pain. He complained of right upper and lower quadrant abdominal pain radiating to his back. Patient was found to be hypotensive and received 4 L of normal saline. Lactate was essentially normal. CT abdomen pelvis showed diverticulosis, edematous gallbladder with some stones. Patient received vancomycin and Zosyn in the emergency department. He was managed in the ICU and required Levophed for hypotension. He had acute kidney injury as well which improved gradually. 1. Persistent GI bleeding/hematochezia. Status post colonoscopy today showing superficial ulcerations in the ascending and transverse colon indicative of ischemic event versus Crohn's disease. He had a polyp in the rectum which was snared. GI has ordered CTA abdomen to evaluate the vasculature. We'll continue to follow H&H and monitor for any bleeding. bleeding scan 07/10 negative. s/p pRBC transfusions. EGD 07/13 - mild esophagitis, gastritis. Status post colonoscopy on 07/14 showing incomplete prep and internal and external hemorrhoids, patient refused repeat colonoscopy at that time. Cont PPI , taper off prednisone. 2. Sepsis, hypotension - resolved. blood cultures 07/06 were positive for Klebsiella pneumoniae, and he has a left lower lobe pneumonia. Now resolved status post course of antibiotics. 3. Abdominal pain, Ileus -resolved. Continue bowel regimen. 4. Hospital-acquired pneumonia -resolved status post course of antibiotics. 5. COPD - followed by Dr. Escamilla as outpatient. Will taper off prednisone 5 mg daily x 3 days then stop (patient takes as needed at home, not daily). Duo nebs as needed. 5. Chronic pain - cont methadone 2.5 mg twice a day and morphine 2 mg IV every 3 hours when necessary. 6. Oral thrush, and odynophagia with dysphagia -Pured diet - on nystatin and magic mouth wash. Status post course of Diflucan per ID. lidocaine swish and spit prior to taking by mouth meds. - GI input appreciated. S/p EGD 07/13 showing mild gastritis in the antrum and distal esophagitis - biopsies were negative for CMV/HSV, did show acute and chronic esophagitis, negative for H. pylori 7. Pancytopenia, CML - Heme/onc following. - Gleevec resumed 07/11 - held yesterday for slightly low platelets which are normal today - No anti-coagulation due to pancytopenia. HIT negative. -Follow CBC 8. Acute kidney injury, Chronic kidney disease possibly stage 3-4 - Creatinine is much improved and stable. Nephrology is following. -s/p diuresis. -ff BMP. -will give gentle IVF overnight as he will be receiving contrast with the CTA. 10. Hypernatremia -resolved. 11. Chronic systolic congestive heart failure - Echo from this admission shows ejection fraction 45-50% -monitor for any fluid overload, monitor I/O. -start PO lasix when sodium improved. 12. Buttock and leg wounds: wound care following and has made recs, appreciate assistance 13. History of ventricular tachycardia status post AICD. Continue amiodarone. 14. DVT px - SCDs. No anti-coagulation due to thrombocytopenia, hematology recommendations. PT/OT following DO NOT RESUSCITATE status Palliative care following. Continuing with medical care, family declined hospice at this time. Discharge Planning SNF when stable for DC Problem Qualifiers (1) Diverticulosis: (2) Acute respiratory failure: Qualified Codes: J96.02 - Acute respiratory failure with hypercapnia (3) Diabetes mellitus: Qualified Codes: E11.8 - Type 2 diabetes mellitus with unspecified complications (4) Pneumonia: Yisel Linares MD Jul 24, 2017 16:41
--- NOTE | 2017-07-24 17:31 | HHI.NPPN ---
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 I was called to see the patient because of elevated BUN and creatinine. Additional Remarks Patient is alert, not in distress,eating better. Objective Data Data 07/24/17 07/25/17 19:00 07:00 Intake Total 200 ml Balance 200 ml Other 200 ml Vital Signs Date Time Temp Pulse Resp B/P (MAP) Pulse Ox O2 Delivery O2 Flow Rate FiO2 07/24/17 15:01 97.2 82 18 114/67 (83) 98 07/24/17 14:00 98.1 74 20 92/50 (64) 94 07/24/17 13:46 94 Nasal Cannula 3.00 07/24/17 10:38 97.8 84 16 100/60 (73) 94 07/24/17 10:35 Nasal Cannula 2.00 07/24/17 04:00 90 07/24/17 00:00 69 07/23/17 22:47 18 07/23/17 21:35 Nasal Cannula 3.00 07/23/17 21:35 67 07/23/17 21:35 98.6 88 18 135/69 (91) 94 -: 07/24/17 0420 07/24/17 0420 Physical Exam General Appearance: No Acute Distress, Comfortable Eyes Eye Exam: Pupils Equal Throat Throat Exam: Oral Mucosa Naselle & Moist Neck Neck Exam: Neck Supple Pulmonary Resp Exam: Breath Sounds Equal, No Distress, Rhonchi, Sputum, Decreased Bases Cardiology CV Exam: Regular, Normal Sinus Rhythm Gastrointestinal/Abdomen GI Exam: Soft, Non-Tender, Bowel Sounds Present Extremeties Extremities Exam: Moderate Edema, Pitting Edema, Dependent Edema Neurologic Neuro Exam: Alert, Awake, Oriented Psychiatric Psych Exam: Appropriate Responses Assessment/Plan Assessment Summary: LEESA/Acute Renal Failure, Hypertension, CKD Stage IV Problem List: (1) COPD (chronic obstructive pulmonary disease) ICD Codes: J44.9 - Chronic obstructive pulmonary disease, unspecified Status: Chronic (2) Bronchitis ICD Codes: J40 - Bronchitis, not specified as acute or chronic Status: Acute (3) HTN (hypertension) ICD Codes: I10 - Essential (primary) hypertension Status: Chronic (4) Diabetes mellitus ICD Codes: E11.9 - Type 2 diabetes mellitus without complications (5) Acute respiratory failure ICD Codes: J96.00 - Acute respiratory failure, unspecified whether with hypoxia or hypercapnia (6) Severe sepsis ICD Codes: A41.9 - Sepsis, unspecified organism; R65.20 - Severe sepsis without septic shock Status: Acute (7) Acute kidney injury ICD Codes: N17.9 - Acute kidney failure, unspecified Status: Acute Plan Patient has been non oliguric. Has Chronic kidney disease, possibly stage 3- 4. Hematology following hx of CML and Pancytopenia ID is following. Lasix is on hold. Results of EGD and Barium swallow noted. Creatinine is stable, 1.4-1.5, at his baseline. Colonoscopy done, results noted. Problem Qualifiers (1) Diabetes mellitus: Qualified Codes: E11.8 - Type 2 diabetes mellitus with unspecified complications (2) Acute respiratory failure: Qualified Codes: J96.02 - Acute respiratory failure with hypercapnia Bismark Woods MD Jul 24, 2017 17:31
[2017-07-24] MEDS ORDERED: SODIUM CHLOR 0.9% 1000 ML INJ 1,000 ML IV SCH (19:00)
[2017-07-24] MEDS ORDERED: IOHEXOL 350 MG/ML 10 ML VIAL (for RAD DIAG) IVCONTRAST ONE (19:12)
[2017-07-24] MEDS: BISACODYL EC 5 MG TABEC PO SCH (21:00)
[2017-07-25] VITALS (8 sets, daily range): BP systolic 99–124; BP diastolic 55–72; PULSE 76–95; RESP 15–16; TEMP 98.9–99.7; O2SAT 95–98
[2017-07-25] MEDS: CHLORHEXIDINE GLUCONATE 2 % 1 PACK (2 CLOTHS) TOP SCH (04:00)
[2017-07-25] MEDS: NYSTATIN 100,000 U/GM OINT 15 GM TUBE TOPICAL SCH ×3 (05:36→20:22)
[2017-07-25 06:01] LABS: HEMATOCRIT 24.4 % (39.0-51.0); HEMOGLOBIN 8.2 GM/DL (13.0-17.0); MEAN CELL VOLUME 90.7 FL (80.0-100.0); MEAN CORPUSCULAR HEMOGLOBIN 30.5 PG (27.0-34.0); MEAN CORPUSCULAR HGB CONC 33.6 % (32.0-36.0); MEAN PLATELET VOLUME 8.6 FL (7.0-11.0); PLATELET COUNT 61 TH/MM3 (150-450); RED BLOOD COUNT 2.69 MIL/MM3 (4.50-5.90); RED CELL DISTRIBUTION WIDTH 18.6 % (11.6-17.2); WHITE BLOOD COUNT 5.9 TH/MM3 (4.0-11.0)
[2017-07-25 06:31] LABS: ALBUMIN 1.1 GM/DL (3.4-5.0); BICARBONATE 33.2 MEQ/L (21.0-32.0); CALCIUM 6.9 MG/DL (8.5-10.1); CREATININE 1.72 MG/DL (0.60-1.30)
[2017-07-25 06:45] LABS: CALCIUM-PROTEIN CORRECTED 8.4 MG/DL (8.5-10.1); TOTAL BILIRUBIN ADULT 0.4 MG/DL (0.2-1.0); TOTAL PROTEIN 4.3 GM/DL (6.4-8.2)
--- NOTE | 2017-07-25 07:53 | RADRPT ---
EXAM DATE/TIME: 07/24/2017 18:52 [facility] COMPARISON: CT ABDOMEN & PELVIS W/O CONTRAST, September 19, 2015, 19:19. CT ABDOMEN & PELVIS W/O CONTRAST, 2016, 19:29. CT PELVIS W/O CONTRAST, June 08, 2017, 9:29. CT ABDOMEN & PELVIS W/O CONTRAS T, July 05, 2017, 15:06. INDICATIONS : Sepsis, probable ischemic ascending colon. IV CONTRAST: 75 cc Omnipaque 350 (iohexol) IV ORAL CONTRAST: No oral contrast ingested. RADIATION DOSE: 26.26 CTDIvol (mGy) MEDICAL HISTORY : Cardiovascular disease. Hypertension. Diabetes mellitus type 1.COPD SURGICAL HISTORY : Pacemaker. ENCOUNTER: Initial ACUITY: 1 day PAIN SCALE: 5/10 LOCATION: abdomen TECHNIQUE: Volumetric scanning was performed using a multi-row detector CT scanner. The data was post processed with a variety of visualization algorithms including full volume maximum intensity projection, multi -planar sliding thin slab reformation, curved planar reformation, and surface rendering techniques. Using automated exposure control and adjustment of the mA and/or kV according to patient size, radiat ion dose was kept as low as reasonably achievable to obtain optimal diagnostic quality images. DICOM format image data is available electronically for review and comparison. FINDINGS: AORTA: Moderate diffuse atherosclerotic calcifications of the infrarenal abdominal aorta with focal fusiform aneurysm distally near the bifurcation. This aneurysm measures 3.8 x 2.5 cm and contains a small senthil unt of anterolateral mural thrombus. VISCERAL ARTERIES: There are single bilateral renal arteries which are patent. Celiac origin is sharply angulated but ot herwise patent. There is moderate calcified plaque at the SMA origin with resultant moderate stenosis . CHIVO is patent. PELVIS: Iliac arteries are moderately calcified but otherwise grossly patent. No significant iliac aneurysm. Visualized portions of the common femoral artery are similarly calcified but otherwise patent. GENERAL FINDINGS: Visualized lung bases demonstrate a small left pleural effusion with associated airspace consolidatio n at the left lung base. Minimal right lung base ground glass opacities likely reflect atelectasis. E valuation of the abdominal viscera is limited due to arterial phase technique. Liver, spleen and adre nal glands are normal in appearance. Small gallstones in the gallbladder which again appears unremark able by CT. The kidneys are grossly stable in appearance without evidence for hydronephrosis or radio paque renal calculi. There is a 1.9 x 1.8 cm cystic density lesion in the pancreatic head. This is more apparent due to th inner slice selection but is otherwise unchanged from 2016 CT exam. Pancreas is otherwise is unremark able without significant ductal dilatation or tail atrophy. No pancreatic calcifications are noted. Redemonstration of mild to moderate sigmoid and scattered colonic diverticulosis. There is apparent i nterval development of mild wall thickening and inflammatory stranding in the sigmoid and distal desc ending colon. There is no pneumatosis or free air. Remaining bowel appear grossly unremarkable. Bladder is decompressed which accentuates the bladder wall. Prostate is nonspecifically enlarged. The re are no abnormal lytic or blastic bony lesions. CONCLUSION: 1. Redemonstration of small fusiform infrarenal distal aortic aneurysm measuring 3 point by 2.5 cm. 2. Celiac and CHIVO are patent. There is likely moderate stenosis of the SMA origin secondary to eccent maximiliano calcified plaque. Generally, single vessel mesenteric stenosis does not result in significant mes enteric ischemia absence distal embolism. 3. Redemonstration of colonic diverticulosis with apparent interval development of mild inflammatory changes in the distal descending and sigmoid colon. The ascending colon is grossly unremarkable by CT although incompletely evaluated due to lack of p.o. contrast and arterial phase imaging. In the abse nce of the provided clinical history, the findings are most consistent with diverticulitis. However g iven history of proximal colitis, this may reflect additional colonic involvement, perhaps infectious in etiology. 4. 1.9 x 1.8 cm cystic density lesion in the pancreatic head which appears more prominent than on sarai or examinations due to thinner slice selection for this exam. Overall, the size is unchanged from 09/19 CT exam. Both benign and neoplastic cystic pancreatic lesions are in the differential diagnosis . 5. Small left pleural effusion and associated airspace disease at the left lung base. Feliciano Drake MD on July 25, 2017 at 7:27 Board Certified Radiologist. This report was verified electronically.
[2017-07-25] MEDS: INSULIN NovoLIN REGULAR SUPPLEMENTAL SCALE SQ SCH ×4 (08:00→20:19)
[2017-07-25] MEDS: BACITRACIN TOP OINT 15 GM TUBE TOPICAL SCH ×2 (09:00→20:23)
[2017-07-25] MEDS: SODIUM CHLORIDE 0.9% FLUSH 10 ML FLUSH IV FLUSH SCH ×3 (09:00→20:20)
[2017-07-25] MEDS: NYSTAT/DIPHENHY/LIDO MOUTHWASH (Adult) 120ML SWISH-SWAL SCH ×4 (09:00→20:23)
[2017-07-25] MEDS: AMIODARONE 200 MG TAB PO SCH ×2 (09:00→10:36)
--- NOTE | 2017-07-25 09:35 | PD.ONC.PN ---
Subjective Subjective Remarks Tmax 99.7 overnight. Feeling much improved today. Eager to eat breakfast. No complaints. Objective Data Date Time Temp Pulse Resp B/P (MAP) Pulse Ox O2 Delivery O2 Flow Rate FiO2 07/25/17 08:51 99.7 84 16 113/60 (77) 96 07/25/17 07:14 76 07/25/17 00:51 16 07/24/17 23:12 99.1 83 137/77 (97) 07/24/17 21:23 Room Air 21 07/24/17 20:21 98 Nasal Cannula 2.00 07/24/17 20:00 74 07/24/17 15:01 97.2 82 18 114/67 (83) 98 07/24/17 14:00 98.1 74 20 92/50 (64) 94 07/24/17 13:46 94 Nasal Cannula 3.00 07/24/17 10:38 97.8 84 16 100/60 (73) 94 07/24/17 10:35 Nasal Cannula 2.00 07/25/17 07/25/17 07/25/17 07:00 15:00 23:00 Intake Total 240 ml Output Total 200 ml Balance 40 ml Result Diagram: 07/25/17 0550 07/25/17 0550 Laboratory Results Laboratory Tests Test 07/25/17 05:50 White Blood Count 5.9 TH/MM3 Red Blood Count 2.69 MIL/MM3 Hemoglobin 8.2 GM/DL Hematocrit 24.4 % Mean Corpuscular Volume 90.7 FL Mean Corpuscular Hemoglobin 30.5 PG Mean Corpuscular Hemoglobin Concent 33.6 % Red Cell Distribution Width 18.6 % Platelet Count 61 TH/MM3 Mean Platelet Volume 8.6 FL Blood Urea Nitrogen 20 MG/DL Creatinine 1.72 MG/DL Random Glucose 116 MG/DL Total Protein 4.3 GM/DL Albumin 1.1 GM/DL Calcium Level 6.9 MG/DL Alkaline Phosphatase 66 U/L Aspartate Amino Transf (AST/SGOT) 32 U/L Alanine Aminotransferase (ALT/SGPT) 41 U/L Total Bilirubin 0.4 MG/DL Sodium Level 143 MEQ/L Potassium Level 4.0 MEQ/L Chloride Level 106 MEQ/L Carbon Dioxide Level 33.2 MEQ/L Anion Gap 4 MEQ/L Estimat Glomerular Filtration Rate 38 ML/MIN Protein Corrected Calcium 8.4 MG/DL Administered Medications Medications (Trade) Dose Ordered Sig/Sunil Route PRN Reason Start Time Stop Time Status Last Admin Dose Admin Sodium Chloride (NS Flush) 2 ml UNSCH PRN IV FLUSH FLUSH AFTER USING IV ACCESS 06/24/17 20:30 07/22/17 13:30 Sodium Chloride (NS Flush) 2 ml BID IV FLUSH 06/24/17 21:00 07/24/17 23:21 Ondansetron HCl (Zofran Inj) 4 mg Q6H PRN IV PUSH NAUSEA OR VOMITING 06/24/17 20:30 07/24/17 04:38 Chlorhexidine Gluconate (Chlorhexidine 2% Cloth) Taper DAILY@04 TOP 06/25/17 04:00 06/21/18 03:59 07/01/17 04:00 Senna/Docusate Sodium (Olesya-Colace) 1 tab BID PO 06/24/17 21:00 07/23/17 20:53 Bisacodyl (Dulcolax Supp) 10 mg DAILY PRN RECTAL SEVERE CONSITIPATION 06/24/17 20:30 06/28/17 08:31 Amiodarone HCl (Cordarone) 200 mg DAILY PO 06/25/17 09:00 07/23/17 09:04 Methadone HCl (Methadone Liq) 2.5 mg BID PO 06/24/17 21:00 07/24/17 23:22 Dextrose (D50w (Vial) Inj) 50 ml UNSCH PRN IV PUSH HYPOGLYCEMIA-SEE COMMENTS 06/24/17 20:30 06/24/17 21:15 Sodium Chloride (NS Flush) DAILY IV FLUSH 06/25/17 09:00 07/24/17 10:45 Sodium Chloride (NS Flush) UNSCH PRN IV FLUSH SEE PROTOCOL 06/24/17 21:30 07/20/17 20:36 Morphine Sulfate (Morphine Inj) 2 mg Q3H PRN IV PUSH pain 1-5 06/24/17 23:15 07/23/17 16:27 Morphine Sulfate (Morphine Inj) 4 mg Q3H PRN IV PUSH pain 6-10 06/24/17 23:15 07/06/17 02:26 Bisacodyl (Dulcolax Ec) 10 mg HS PO 06/26/17 21:00 07/23/17 20:53 Sennosides (Senna Liq) 8.8 mg DAILY PO 06/28/17 09:00 07/23/17 09:04 Albuterol/ Ipratropium (Duoneb Neb) 1 ampule Q2HR NEB PRN NEB SHORTNESS OF BREATH 06/29/17 08:30 07/13/17 20:43 Insulin Human Regular (NovoLIN R SUPPLEMENTAL SCALE) 1 ACHS SQ 07/02/17 12:00 07/22/17 21:23 Albuterol/ Ipratropium (Duoneb Neb) 1 ampule Q4HR NEB PRN INH SHORTNESS OF BREATH 07/05/17 17:00 07/06/17 20:26 Multi-Ingredient Mouthwash/Gargle (Magic Mouthwash Adult Liq) 5 ml QID SWISH-SWAL 07/09/17 09:00 07/24/17 21:00 Nystatin (Mycostatin Oint) 1 applic Q8HR TOPICAL 07/09/17 15:15 07/25/17 05:36 Imatinib Mesylate (Gleevec) 400 mg HS PO 07/11/17 21:00 Future Hold 07/21/17 22:28 Lactobacillus Acidophilus (Lactinex) 1 tab TID PO 07/11/17 18:00 07/24/17 17:23 Lidocaine HCl (Xylocaine 2% Viscous) 15 ml Q4H PRN SWISH-SPIT prior to taking meds 07/12/17 10:15 07/15/17 08:26 Pantoprazole Sodium (Protonix) 40 mg Q12HR PO 07/12/17 21:00 07/24/17 23:21 Bacitracin (Baciguent Oint) 1 applic Q12HR TOPICAL 07/18/17 11:30 07/24/17 21:00 Objective Remarks GENERAL: Deconditioned male upright in bed, eating breakfast. SKIN: Warm and dry. HEAD: Normocephalic. EYES: no injection or drainage. NECK: Supple, trachea midline. CARDIOVASCULAR: Regular rate and rhythm RESPIRATORY: occasional rhonchi GASTROINTESTINAL: Abdomen soft, non-tender, nondistended. EXTREMITIES: No cyanosis NEUROLOGICAL: awake and alert, normal speech. 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 hold Gleevac -- Was originally diagnosed in 1998 (2) Anemia ICD Codes: D64.9 - Anemia, unspecified Plan: 07/24: Colonoscopy today showed multiple ulcerations in the ascending colon and proximal two thirds of the transverse colon most likely resembling an ischemic event possibly Crohn's. (3) GI bleed ICD Codes: K92.2 - Gastrointestinal hemorrhage, unspecified Status: Acute Plan: Colonoscopy, 07/24 showed multiple ulcerations in the ascending colon and proximal two thirds of the transverse colon most likely resembling an ischemic event possibly Crohn's. --GI signed off on 07/15 --had incomplete colonoscopy on 07/14 which showed hemorrhoids. --Bleeding scan,07/10--> no active GI bleeding. Assessment 82 y/o male with history of CML. hematology consulted for pancytopenia Attending Statement The exam, history, and the medical decision-making described in the above note were completed with the assistance of the mid-level provider. I reviewed and agree with the findings presented. I attest that I had a [id number] encounter with the patient on the same day, and personally performed and documented my assessment and findings in the medical record. Feels better hungry and wants food. will be transfer to rehab. resume Gleevec when Plat >70. i will be OOT starting today and our team will follow as needed. Mira Zepeda Jul 25, 2017 09:35 Fabrice Patel MD Jul 25, 2017 10:15
[2017-07-25] MEDS: METHADONE HCL 10 MG/10 ML ORAL SOLUTION PO SCH ×2 (10:35→20:20)
[2017-07-25] MEDS: SENNOSIDES SYRUP 8.8 MG/5 ML CUP PO SCH (10:35)
[2017-07-25] MEDS: PANTOPRAZOLE SOD 40 MG DELAYED RELEASE TAB PO SCH ×2 (10:37→20:20)
[2017-07-25] MEDS: LACTOBACILLUS ACIDOPHILUS TAB PO SCH ×3 (10:37→17:09)
[2017-07-25] MEDS: predniSONE 5 MG TAB PO SCH (10:37)
[2017-07-25] MEDS: DOCUSATE SODIUM 50 MG/SENNA 8.6 MG TAB PO SCH ×2 (10:37→20:20)
--- NOTE | 2017-07-25 12:12 | HHI.PR ---
Subjective Remarks Patient denies abdominal pain, dyspnea. He states he feels well. Objective Vitals Vital Signs Date Time Temp Pulse Resp B/P (MAP) Pulse Ox O2 Delivery O2 Flow Rate FiO2 07/25/17 11:54 98.9 95 124/62 (82) 07/25/17 08:51 99.7 84 16 113/60 (77) 96 07/25/17 08:45 Room Air 3.00 07/25/17 07:14 76 07/25/17 07:00 78 07/25/17 00:51 16 07/24/17 23:12 99.1 83 137/77 (97) 07/24/17 21:23 Room Air 21 07/24/17 20:21 98 Nasal Cannula 2.00 07/24/17 20:00 74 07/24/17 15:01 97.2 82 18 114/67 (83) 98 07/24/17 14:00 98.1 74 20 92/50 (64) 94 07/24/17 13:46 94 Nasal Cannula 3.00 I/O 07/24/17 07/24/17 07/24/17 07/25/17 07/25/17 07/25/17 07:00 15:00 23:00 07:00 15:00 23:00 Intake Total 200 ml 240 ml Output Total 100 ml 200 ml Balance 200 ml -100 ml 40 ml Intake Oral 240 ml Other 200 ml Output Urine Total 100 ml 200 ml # Voids 1 # Bowel Movements 4 1 Result Diagram: 07/25/17 0550 07/25/17 0550 Objective Remarks GENERAL: pleasant somewhat chronically ill appearing elderly obese male patient. SKIN: Warm and dry. Multiple tattoos on extremities. HEAD: Normocephalic. EYES: No scleral icterus. No injection or drainage. NECK: Supple, trachea midline. No JVD or lymphadenopathy. CARDIOVASCULAR: Regular rate and rhythm without murmurs, gallops, or rubs. RESPIRATORY: Breath sounds equal bilaterally. No accessory muscle use. CTAB. GASTROINTESTINAL: Abdomen soft, non-tender, nondistended. EXTREMITIES: No pedal edema. 1+ edema bilateral hands and forearms. NEUROLOGICAL: Awake, alert, and oriented x 3. Non-focal. Procedures Echo 06/26/2017 Mildly dilated left ventricle. The left ventricular systolic function is mildly reduced with an estimated ejection fraction in the range of 45- 50%. Wall thickness is normal. A pacemaker wire is noted. There is a pacemaker wire present in the right atrial cavity. [id number] mitral valve regurgitation. There is trace tricuspid valve regurgitation. A/P Problem List: (1) Diverticulosis ICD Code: K57.90 - Diverticulosis of intestine, part unspecified, without perforation or abscess without bleeding (2) ALEJANDRA (obstructive sleep apnea) ICD Code: G47.33 - Obstructive sleep apnea (adult) (pediatric) Status: Chronic (3) Acute respiratory failure ICD Code: J96.00 - Acute respiratory failure, unspecified whether with hypoxia or hypercapnia (4) Acute kidney injury ICD Code: N17.9 - Acute kidney failure, unspecified Status: Acute (5) Thrombocytopenia ICD Code: D69.6 - Thrombocytopenia, unspecified Status: Acute (6) Macrocytic anemia ICD Code: D53.9 - Nutritional anemia, unspecified Status: Chronic (7) Diabetes mellitus ICD Code: E11.9 - Type 2 diabetes mellitus without complications (8) Chronic systolic heart failure ICD Code: I50.22 - Chronic systolic (congestive) heart failure Status: Chronic (9) Sepsis ICD Code: A41.9 - Sepsis, unspecified organism Status: Acute (10) GI bleed ICD Code: K92.2 - Gastrointestinal hemorrhage, unspecified Status: Acute (11) Bacteremia due to Klebsiella pneumoniae ICD Code: R78.81 - Bacteremia Status: Acute (12) Ileus ICD Code: K56.7 - Ileus, unspecified Status: Resolved (13) Candidiasis of mouth and esophagus ICD Code: B37.81 - Candidal esophagitis; B37.0 - Candidal stomatitis Status: Acute (14) Pneumonia ICD Code: J18.9 - Pneumonia, unspecified organism Status: Acute (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, BCR/ABL-positive, not having achieved remission Status: Chronic (16) Pancytopenia ICD Code: D61.818 - Other pancytopenia Status: Chronic (17) COPD (chronic obstructive pulmonary disease) ICD Code: J44.9 - Chronic obstructive pulmonary disease, unspecified Status: Chronic (18) Acute renal failure ICD Code: N17.9 - Acute kidney failure, unspecified Status: Acute (19) Iron deficiency anemia ICD Code: D50.9 - Iron deficiency anemia, unspecified Status: Acute (20) AICD (automatic cardioverter/defibrillator) present ICD Code: Z95.810 - Presence of automatic (implantable) cardiac defibrillator Status: Acute (21) Anemia associated with acute blood loss ICD Code: D62 - Acute posthemorrhagic anemia Status: Acute (22) Cardiomyopathy ICD Code: I42.9 - Cardiomyopathy, unspecified Status: Chronic (23) Left bundle branch block ICD Code: I44.7 - Left bundle-branch block, unspecified Status: Chronic (24) Paroxysmal ventricular tachycardia ICD Code: I47.2 - Ventricular tachycardia Status: Resolved (25) Pancreatic cyst ICD Code: K86.2 - Cyst of pancreas (26) CKD (chronic kidney disease), stage III ICD Code: N18.3 - Chronic kidney disease, stage 3 (moderate) Status: Chronic (27) Dysphagia ICD Code: R13.10 - Dysphagia, unspecified Assessment and Plan 82-year-old male who was admitted on 06/24/2017 due to abdominal pain. He complained of right upper and lower quadrant abdominal pain radiating to his back. Patient was found to be hypotensive and received 4 L of normal saline. Lactate was essentially normal. CT abdomen pelvis showed diverticulosis, edematous gallbladder with some stones. Patient received vancomycin and Zosyn in the emergency department. He was managed in the ICU and required Levophed for hypotension. He had acute kidney injury as well which improved gradually. 1. Persistent GI bleeding/hematochezia. Status post colonoscopy 07/25 showing superficial ulcerations in the ascending and transverse colon indicative of ischemic event versus Crohn's disease. He had a polyp in the rectum which was snared. CTA abdomen 07/24 revealed moderate stenosis of the SMA not likely causing any mesenteric ischemia, mild inflammatory changes in the distal descending and sigmoid colon, also 1.9 x 1.8 cm cystic density in the pancreatic head which is slightly more prominent than prior CT; benign and neoplastic cystic lesions are in the differential diagnosis. we'll continue to follow H&H and monitor for any bleeding. bleeding scan 07/10 negative. s/p multiple pRBC transfusions. EGD 07/13 - mild esophagitis, gastritis. Status post colonoscopy on 07/14 showing incomplete prep and internal and external hemorrhoids, patient refused repeat colonoscopy at that time. Cont PPI, taper off prednisone. -Discussed with GI Dr. Shore. Discussed with patient's and son at bedside. They prefer to avoid any aggressive pursue all of the pancreatic cysts. They prefer to follow-up with GI as outpatient. I have ordered CA-19-9 and CEA. -Follow-up biopsy pathology of colon. 2. Sepsis, hypotension - resolved. blood cultures 07/06 were positive for Klebsiella pneumoniae, and he has a left lower lobe pneumonia. Now resolved status post course of antibiotics. 3. Abdominal pain, Ileus -resolved. Continue bowel regimen. 4. Hospital-acquired pneumonia -resolved status post course of antibiotics. 5. COPD - followed by Dr. Escamilla as outpatient. Will taper off prednisone 5 mg daily x 3 days then stop (patient takes as needed at home, not daily). Duo nebs as needed. 5. Chronic pain - cont methadone 2.5 mg twice a day and morphine 2 mg IV every 3 hours when necessary. 6. Oral thrush, and odynophagia with dysphagia - much improved -Pured diet - on nystatin and magic mouth wash. Status post course of Diflucan per ID. lidocaine swish and spit prior to taking by mouth meds. - GI input appreciated. S/p EGD 07/13 showing mild gastritis in the antrum and distal esophagitis - biopsies were negative for CMV/HSV, did show acute and chronic esophagitis, negative for H. pylori 7. Pancytopenia, CML - Heme/onc following. - Gleevec per oncology - No anti-coagulation due to pancytopenia. HIT negative. -Follow CBC 8. Acute kidney injury, Chronic kidney disease possibly stage 3-4 - Creatinine is much improved and stable. Nephrology is following. -s/p diuresis. -ff BMP. -will give gentle IVF overnight as he will be receiving contrast with the CTA. 10. Hypernatremia -resolved. 11. Chronic systolic congestive heart failure - Echo from this admission shows ejection fraction 45-50% -monitor for any fluid overload, monitor I/O. -start PO lasix when sodium improved. 12. Buttock and leg wounds: wound care following and has made recs, appreciate assistance 13. History of ventricular tachycardia status post AICD. Continue amiodarone. 14. Superficial venous thrombosis of left cephalic vein. Not anticoagulation candidate due to GI bleed and thrombocytopenia. DVT px - SCDs. No anti-coagulation due to thrombocytopenia, hematology recommendations. PT/OT following DO NOT RESUSCITATE status Palliative care following. Continuing with medical care, family declined hospice at this time. Discharge Planning SNF when stable for DC Monitor for any recurrence of GI bleeding, followup colon biopsies. If remains stable anticipate DC to SNF on Friday. Problem Qualifiers (1) Diverticulosis: (2) Acute respiratory failure: Qualified Codes: J96.02 - Acute respiratory failure with hypercapnia (3) Diabetes mellitus: Qualified Codes: E11.8 - Type 2 diabetes mellitus with unspecified complications (4) Pneumonia: Yisel Linares MD Jul 25, 2017 12:12
[2017-07-25 12:43] LABS: CARCINOEMBRYONIC ANTIGEN 2.8 NG/ML (0.2-5.0)
--- NOTE | 2017-07-25 13:09 | PD.WCN.NOT ---
Wound Consult Description: Received consult from Doctor Nano for wound management of R heel/ buttock Communicated with: ROGER Guzman CNA and Rena DURAN [facility] Recommendation: 1.Please continue to cleanse bilateral buttocks and lower back with soap and water, rinse and pat dry. Apply antifungal cream mixed with Calazime barrier cream 50/50 BID.Please leave wounds open to air. 2. Please continue to apply skin prep to R heel BID and leave open to air. 3. Turn patient every 2 hours and PRN for comfort and offloading of pressure from nasim prominences 4 Please apply heel raiser boots to bilateral feet to offload pressure from heels. Additional Information: Patient seen on [facility] around 829. Lyly DURAN for 2end floor notified but unable to accompany inspector automatic typewriter and Facundo AQUINO RN for wound care.Patient alert in bed states he believes wounds are doing just fine do to decrease pain. Right heel present 75% pink tissue 25% reddened intact tissue no necrosis noted. Heel painted with skin prep floated on 2 pillows no heel raiser boots in room. Patient required 1 person assist with repositioning to left side. 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 Whit Driver [facility] Jul 25, 2017 13:09
[2017-07-25 14:03] LABS: CA 19-9 26.3 U/ML (0.0-35.0)
--- NOTE | 2017-07-25 15:40 | HHI.NPPN ---
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 I was called to see the patient because of elevated BUN and creatinine. Additional Remarks Patient is alert, not in distress,has repeat colonoscopy done. Objective Data Data Vital Signs Date Time Temp Pulse Resp B/P (MAP) Pulse Ox O2 Delivery O2 Flow Rate FiO2 07/25/17 14:25 95 Nasal Cannula 2.00 07/25/17 11:54 98.9 95 124/62 (82) 07/25/17 08:51 99.7 84 16 113/60 (77) 96 07/25/17 08:45 Room Air 3.00 07/25/17 07:14 76 07/25/17 07:00 78 07/25/17 00:51 16 07/24/17 23:12 99.1 83 137/77 (97) 07/24/17 21:23 Room Air 21 07/24/17 20:21 98 Nasal Cannula 2.00 07/24/17 20:00 74 -: 07/25/17 0550 07/25/17 0550 Physical Exam General Appearance: No Acute Distress, Comfortable Eyes Eye Exam: Pupils Equal Throat Throat Exam: Oral Mucosa Mcdermott & Moist Neck Neck Exam: Neck Supple Pulmonary Resp Exam: Breath Sounds Equal, No Distress, Rhonchi, Sputum, Decreased Bases Cardiology CV Exam: Regular, Normal Sinus Rhythm Gastrointestinal/Abdomen GI Exam: Soft, Non-Tender, Bowel Sounds Present Extremeties Extremities Exam: Moderate Edema, Pitting Edema, Dependent Edema Neurologic Neuro Exam: Alert, Awake, Oriented Psychiatric Psych Exam: Appropriate Responses Assessment/Plan Assessment Summary: LEESA/Acute Renal Failure, Hypertension, CKD Stage IV Problem List: (1) COPD (chronic obstructive pulmonary disease) ICD Codes: J44.9 - Chronic obstructive pulmonary disease, unspecified Status: Chronic (2) Bronchitis ICD Codes: J40 - Bronchitis, not specified as acute or chronic Status: Acute (3) HTN (hypertension) ICD Codes: I10 - Essential (primary) hypertension Status: Chronic (4) Diabetes mellitus ICD Codes: E11.9 - Type 2 diabetes mellitus without complications (5) Acute respiratory failure ICD Codes: J96.00 - Acute respiratory failure, unspecified whether with hypoxia or hypercapnia (6) Severe sepsis ICD Codes: A41.9 - Sepsis, unspecified organism; R65.20 - Severe sepsis without septic shock Status: Acute (7) Acute kidney injury ICD Codes: N17.9 - Acute kidney failure, unspecified Status: Acute Plan Patient has been non oliguric. Has Chronic kidney disease, possibly stage 3- 4. Hematology following hx of CML and Pancytopenia ID is following. Lasix is on hold. Results of EGD and Barium swallow noted. Repeat Colonoscopy done, results noted. Better to get MRA and avoid Contrast if possible. Creatinine increase slight. Encourage oral intake. Problem Qualifiers (1) Diabetes mellitus: Qualified Codes: E11.8 - Type 2 diabetes mellitus with unspecified complications (2) Acute respiratory failure: Qualified Codes: J96.02 - Acute respiratory failure with hypercapnia Bismark Woods MD Jul 25, 2017 15:40
--- NOTE | 2017-07-25 16:07 | HHI.GIFU ---
Subjective Remarks Pt resting in bed, at bedside. No diarrhea today. Tolerating diet. No abd pain. Objective Vitals I&O Vital Signs Date Time Temp Pulse Resp B/P (MAP) Pulse Ox O2 Delivery O2 Flow Rate FiO2 07/25/17 14:25 95 Nasal Cannula 2.00 07/25/17 11:54 98.9 95 124/62 (82) 07/25/17 08:51 99.7 84 16 113/60 (77) 96 07/25/17 08:45 Room Air 3.00 07/25/17 07:14 76 07/25/17 07:00 78 07/25/17 00:51 16 07/24/17 23:12 99.1 83 137/77 (97) 07/24/17 21:23 Room Air 21 07/24/17 20:21 98 Nasal Cannula 2.00 07/24/17 20:00 74 I/O 07/24/17 07/24/17 07/24/17 07/25/17 07/25/17 07/25/17 07:00 15:00 23:00 07:00 15:00 23:00 Intake Total 200 ml 240 ml Output Total 100 ml 200 ml Balance 200 ml -100 ml 40 ml Intake Oral 240 ml Other 200 ml Output Urine Total 100 ml 200 ml # Voids 1 # Bowel Movements 4 1 Laboratory Laboratory Tests Test 07/25/17 05:50 07/25/17 11:45 White Blood Count 5.9 Red Blood Count 2.69 Hemoglobin 8.2 Hematocrit 24.4 Mean Corpuscular Volume 90.7 Mean Corpuscular Hemoglobin 30.5 Mean Corpuscular Hemoglobin Concent 33.6 Red Cell Distribution Width 18.6 Platelet Count 61 Mean Platelet Volume 8.6 Blood Urea Nitrogen 20 Creatinine 1.72 Random Glucose 116 Total Protein 4.3 Albumin 1.1 Calcium Level 6.9 Alkaline Phosphatase 66 Aspartate Amino Transf (AST/SGOT) 32 Alanine Aminotransferase (ALT/SGPT) 41 Total Bilirubin 0.4 Sodium Level 143 Potassium Level 4.0 Chloride Level 106 Carbon Dioxide Level 33.2 Anion Gap 4 Estimat Glomerular Filtration Rate 38 Protein Corrected Calcium 8.4 Carcinoembryonic Antigen 2.8 CA 19-9 Antigen 26.3 Date/Time Source Procedure Growth Status 07/08/17 06:32 Blood Peripheral Aerobic Blood Culture - Final Staphylococcus Epidermidis Complete 07/08/17 06:32 Blood Peripheral Anaerobic Blood Culture - Final QNS - SEE AEROBE REPORT Complete 07/21/17 02:30 Stool Stool Stool Occult Blood (EVELIA) - Final HEMOCCULT POSITIVE Complete 07/05/17 21:00 Sputum Expectorated Sputum Gram Stain - Final Complete 07/05/17 21:00 Sputum Culture - Final Klebsiella Pneumoniae Pseudomonas Aeruginosa Complete 06/24/17 15:55 Urine Catheterized Urine Urine Culture - Final NO GROWTH IN 48 HOURS. Complete Imaging Last Impressions Abdomen/Pelvis CT 07/24/17 0000 Signed Impressions: Service Date/Time: July 18:52 - CONCLUSION: 1. Redemonstration of small fusiform infrarenal distal aortic aneurysm measuring 3 point by 2.5 cm. 2. Celiac and CHIVO are patent. 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 Generally, single vessel mesenteric stenosis does not result in significant mesenteric ischemia absence distal embolism. 3. Redemonstration of colonic diverticulosis with apparent interval development of mild inflammatory changes in the distal descending and sigmoid colon. The ascending colon is grossly unremarkable by CT although incompletely evaluated due to lack of p.o. contrast and arterial phase imaging. In the absence of the provided clinical history, the findings are most consistent with diverticulitis. However given history of proximal colitis, this may reflect additional colonic involvement, perhaps infectious in etiology. 4. 1.9 x 1.8 cm cystic density lesion in the pancreatic head which appears more prominent than on prior examinations due to thinner slice selection for this exam. Overall, the size is unchanged from 09/19/2015 CT exam. Both benign and neoplastic cystic pancreatic lesions are in the differential diagnosis. 5. Small left pleural effusion and associated airspace disease at the left lung base. Feliciano Drake MD Modified Barium Swallow 07/21/17 0000 Signed Impressions: Service Date/Time: Friday, July 21, 2017 00:00 - CONCLUSION: Swallowing mechanism remains labored. Minimal vestibular penetration without aspiration due to rapid swallowing through a straw. Patient was unable to naturally swallow a barium tablet. Kendall Marti MD Chest X-Ray 07/19/17 0000 Signed Impressions: Service Date/Time: Wednesday, July 19, 2017 03:32 - CONCLUSION: Left basilar airspace disease suspected. Central venous catheter placement as above. Braulio Sellers MD Upper Extremity Ultrasound 07/18/17 0000 Signed Impressions: Service Date/Time: Tuesday, July 18, 2017 13:24 - CONCLUSION: 1. Occlusive thrombus within the proximal and mid aspect of the left cephalic vein. 2. The remaining veins of both upper extremities are patent. Alli Cohen MD GI Bleed Scan Nuclear Medicine 07/10/17 0000 Signed Impressions: Service Date/Time: June 16:42 - CONCLUSION: No active gastrointestinal bleeding Alli Teague MD Abdomen X-Ray 07/08/17 0600 Signed Impressions: Service Date/Time: Saturday, July 08, 2017 04:09 - CONCLUSION: Negative KUB. Alli Schroeder MD Hepatobiliary Scan Nuclear Medicine 06/25/17 0000 Signed Impressions: Service Date/Time: Sunday, June 25, 2017 10:43 - CONCLUSION: 1. No evidence for cystic duct obstruction. 2. Biliary enteric reflux. Braulio Sellers MD Physical Exam HEENT: Normocephalic; atraumatic, no jaundice.pale CHEST: wheezes CARDIAC: RRR. ABDOMEN: Soft, nontender, no hepatomegaly, bowel sounds present. EXTREMITIES: No edema. PHOTOENGRAVING APPRENTICE: lethargic Assessment and Plan Plan - Dysphagia. Doing better with eating, slow and chewing, Staying on pureed diet thicken liquids. S/p EGD 07/13/17--mild gastritis in the antrum and distal esophagitis. Biopsies negative for CMV/HSV, did show acute and chronic esophagitis, negative for H. pylori. ST evaluation 07/18/17, recommended puree diet. tolerating diet. - Bloody diarrhea, resolved. ischemia vs IBD vs infectious etiology . Had blood stool 07/10. Bleeding scan (07/10/17)--no active GI bleeding. C. Diff negative. S/p incomplete colonoscopy (poor prep) 07/14/17, colonoscopy 07/24 found colon polyp, colon ulcerations poss ischemic event, diverticulosis. CTA noted, moderate SMA stenosis. will await colon biopsies. - Ileus. resolved. - GERD, PPI - Anemia. HH gradual decrease last few days PLAN: - [facility] soft heart healthy diet - await bx - monitor labs - supportive care patient seen per myself and Dr. Rodríguez, note on his behalf Debora Carver HOSPICE CASE MANAGER Jul 25, 2017 16:07
[2017-07-25] MEDS: BISACODYL EC 5 MG TABEC PO SCH (20:21)
[2017-07-25] MEDS: MORPHINE SULFATE 2 MG/ML INJ IV PUSH PRN (20:26)
[2017-07-26] VITALS (10 sets, daily range): BP systolic 92–122; BP diastolic 51–65; PULSE 75–84; RESP 16–18; TEMP 97.7–98.6; O2SAT 85–99
[2017-07-26] MEDS: CHLORHEXIDINE GLUCONATE 2 % 1 PACK (2 CLOTHS) TOP SCH (03:56)
[2017-07-26] MEDS: NYSTATIN 100,000 U/GM OINT 15 GM TUBE TOPICAL SCH ×3 (06:42→21:13)
[2017-07-26 07:10] LABS: AUTOMATED NEUTROPHIL # 3.6 TH/MM3 (1.8-7.7); BASOPHIL # 0.1 TH/MM3 (0-0.2); BASOPHIL % 0.7 % (0.0-2.0); EOSINOPHIL # 0.1 TH/MM3 (0-0.4); EOSINOPHIL % 0.7 % (0.0-4.0); HEMATOCRIT 25.1 % (39.0-51.0); HEMOGLOBIN 8.4 GM/DL (13.0-17.0); LYMPH % 54.5 % (9.0-44.0); MEAN CELL VOLUME 91.1 FL (80.0-100.0); MEAN CORPUSCULAR HEMOGLOBIN 30.3 PG (27.0-34.0); MEAN CORPUSCULAR HGB CONC 33.2 % (32.0-36.0); MEAN PLATELET VOLUME 8.3 FL (7.0-11.0); MONO % 4.7 % (0.0-8.0); MONOCYTE # 0.4 TH/MM3 (0-0.9); NEUT % 39.4 % (16.0-70.0); PLATELET COUNT 66 TH/MM3 (150-450); RED BLOOD COUNT 2.76 MIL/MM3 (4.50-5.90); RED CELL DISTRIBUTION WIDTH 18.4 % (11.6-17.2); WHITE BLOOD COUNT 9.1 TH/MM3 (4.0-11.0)
[2017-07-26 07:38] LABS: BICARBONATE 31.8 MEQ/L (21.0-32.0); CALCIUM 6.8 MG/DL (8.5-10.1); CREATININE 1.59 MG/DL (0.60-1.30)
[2017-07-26 07:49] LABS: CALCIUM-PROTEIN CORRECTED 8.4 MG/DL (8.5-10.1); TOTAL PROTEIN 4.1 GM/DL (6.4-8.2)
[2017-07-26] MEDS: INSULIN NovoLIN REGULAR SUPPLEMENTAL SCALE SQ SCH ×4 (08:00→21:11)
[2017-07-26] MEDS: SENNOSIDES SYRUP 8.8 MG/5 ML CUP PO SCH (09:00)
[2017-07-26] MEDS: SODIUM CHLORIDE 0.9% FLUSH 10 ML FLUSH IV FLUSH SCH ×3 (09:00→21:12)
[2017-07-26] MEDS: BACITRACIN TOP OINT 15 GM TUBE TOPICAL SCH ×2 (09:00→21:13)
--- NOTE | 2017-07-26 10:15 | HHI.GIFU ---
Subjective Remarks Pt resting in bed, eating breakfast, in no apparent distress. He denies abdominal pain. Reports normal BM yesterday. Objective Vitals I&O Vital Signs Date Time Temp Pulse Resp B/P (MAP) Pulse Ox O2 Delivery O2 Flow Rate FiO2 07/26/17 08:30 98.5 84 18 114/58 (76) 98 07/26/17 04:00 98.5 80 17 101/54 (70) 99 07/26/17 03:40 81 07/26/17 01:14 98.6 81 18 99/51 (67) 97 07/26/17 00:20 75 07/25/17 21:33 76 07/25/17 21:20 16 07/25/17 20:10 Nasal Cannula 2.00 07/25/17 20:10 99.3 82 15 104/55 (71) 98 07/25/17 16:00 82 07/25/17 16:00 98.9 95 99/58 (72) 07/25/17 14:25 95 Nasal Cannula 2.00 07/25/17 11:54 98.9 95 124/62 (82) I/O 07/25/17 07/25/17 07/25/17 07/26/17 07/26/17 07/26/17 07:00 15:00 23:00 07:00 15:00 23:00 Intake Total 240 ml 875 ml Output Total 200 ml 350 ml Balance 40 ml 525 ml Intake Oral 240 ml 875 ml Output Urine Total 200 ml 350 ml # Bowel Movements 0 Laboratory Laboratory Tests Test 07/25/17 11:45 07/26/17 06:40 Carcinoembryonic Antigen 2.8 CA 19-9 Antigen 26.3 White Blood Count 9.1 Red Blood Count 2.76 Hemoglobin 8.4 Hematocrit 25.1 Mean Corpuscular Volume 91.1 Mean Corpuscular Hemoglobin 30.3 Mean Corpuscular Hemoglobin Concent 33.2 Red Cell Distribution Width 18.4 Platelet Count 66 Mean Platelet Volume 8.3 Neutrophils (%) (Auto) 39.4 Lymphocytes (%) (Auto) 54.5 Monocytes (%) (Auto) 4.7 Eosinophils (%) (Auto) 0.7 Basophils (%) (Auto) 0.7 Neutrophils # (Auto) 3.6 Lymphocytes # (Auto) 5.0 Monocytes # (Auto) 0.4 Eosinophils # (Auto) 0.1 Basophils # (Auto) 0.1 CBC Comment AUTO DIFF Blood Urea Nitrogen 20 Creatinine 1.59 Random Glucose 83 Total Protein 4.1 Calcium Level 6.8 Sodium Level 141 Potassium Level 4.2 Chloride Level 106 Carbon Dioxide Level 31.8 Anion Gap 3 Estimat Glomerular Filtration Rate 42 Protein Corrected Calcium 8.4 Date/Time Source Procedure Growth Status 07/08/17 06:32 Blood Peripheral Aerobic Blood Culture - Final Staphylococcus Epidermidis Complete 07/08/17 06:32 Blood Peripheral Anaerobic Blood Culture - Final QNS - SEE AEROBE REPORT Complete 07/21/17 02:30 Stool Stool Stool Occult Blood (EVELIA) - Final HEMOCCULT POSITIVE Complete 07/05/17 21:00 Sputum Expectorated Sputum Gram Stain - Final Complete 07/05/17 21:00 Sputum Culture - Final Klebsiella Pneumoniae Pseudomonas Aeruginosa Complete 06/24/17 15:55 Urine Catheterized Urine Urine Culture - Final NO GROWTH IN 48 HOURS. Complete Imaging Last Impressions Abdomen/Pelvis CT 07/24/17 0000 Signed Impressions: Service Date/Time: July 18:52 - CONCLUSION: 1. Redemonstration of small fusiform infrarenal distal aortic aneurysm measuring 3 point by 2.5 cm. 2. Celiac and CHIVO are patent. 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 Generally, single vessel mesenteric stenosis does not result in significant mesenteric ischemia absence distal embolism. 3. Redemonstration of colonic diverticulosis with apparent interval development of mild inflammatory changes in the distal descending and sigmoid colon. The ascending colon is grossly unremarkable by CT although incompletely evaluated due to lack of p.o. contrast and arterial phase imaging. In the absence of the provided clinical history, the findings are most consistent with diverticulitis. However given history of proximal colitis, this may reflect additional colonic involvement, perhaps infectious in etiology. 4. 1.9 x 1.8 cm cystic density lesion in the pancreatic head which appears more prominent than on prior examinations due to thinner slice selection for this exam. Overall, the size is unchanged from 09/19/2015 CT exam. Both benign and neoplastic cystic pancreatic lesions are in the differential diagnosis. 5. Small left pleural effusion and associated airspace disease at the left lung base. Feliciano Drake MD Modified Barium Swallow 07/21/17 0000 Signed Impressions: Service Date/Time: Friday, July 21, 2017 00:00 - CONCLUSION: Swallowing mechanism remains labored. Minimal vestibular penetration without aspiration due to rapid swallowing through a straw. Patient was unable to naturally swallow a barium tablet. Kendall Marti MD Chest X-Ray 07/19/17 0000 Signed Impressions: Service Date/Time: Wednesday, July 19, 2017 03:32 - CONCLUSION: Left basilar airspace disease suspected. Central venous catheter placement as above. Braulio Sellers MD Upper Extremity Ultrasound 07/18/17 0000 Signed Impressions: Service Date/Time: Tuesday, July 18, 2017 13:24 - CONCLUSION: 1. Occlusive thrombus within the proximal and mid aspect of the left cephalic vein. 2. The remaining veins of both upper extremities are patent. Alli Cohen MD GI Bleed Scan Nuclear Medicine 07/10/17 0000 Signed Impressions: Service Date/Time: June 16:42 - CONCLUSION: No active gastrointestinal bleeding Alli Teague MD Abdomen X-Ray 07/08/17 0600 Signed Impressions: Service Date/Time: Saturday, July 08, 2017 04:09 - CONCLUSION: Negative KUB. Alli Schroeder MD Hepatobiliary Scan Nuclear Medicine 06/25/17 0000 Signed Impressions: Service Date/Time: Sunday, June 25, 2017 10:43 - CONCLUSION: 1. No evidence for cystic duct obstruction. 2. Biliary enteric reflux. Braulio Sellers MD Physical Exam HEENT: Normocephalic; atraumatic. CHEST: Diminished CARDIAC: RRR. ABDOMEN: Soft, obese, nontender, no hepatomegaly, bowel sounds active x 4. EXTREMITIES: BLE edema NANNY CAREGIVER:Alert and oriented x 3 Assessment and Plan Assessment: (1) GERD (gastroesophageal reflux disease) ICD Codes: K21.9 - Gastro-esophageal reflux disease without esophagitis (2) Anemia ICD Codes: D64.9 - Anemia, unspecified (3) GI bleed ICD Codes: K92.2 - Gastrointestinal hemorrhage, unspecified Status: Acute (4) Diverticulosis ICD Codes: K57.90 - Diverticulosis of intestine, part unspecified, without perforation or abscess without bleeding (5) Dysphagia ICD Codes: R13.10 - Dysphagia, unspecified Plan - Dysphagia. S/P EGD 07/13/17--mild gastritis in the antrum and distal esophagitis. Biopsies negative for CMV/HSV, did show acute and chronic esophagitis, negative for H. pylori. Modified barium swallow (07/21) --> Swallowing mechanism remains labored. Minimal vestibular penetration without aspiration due to rapid swallowing through a straw. Pt was unable to naturally swallow a barium tablet. ST evaluation 07/18/17, recommended puree diet. Tolerating diet. - Bloody diarrhea, resolved. ischemia vs IBD vs infectious etiology . Bleeding scan (07/10/17)--no active GI bleeding. C. Diff negative. S/p incomplete colonoscopy (poor prep) (07/14/17) --> colon polyp, colonic ulcerations poss ischemic event, diverticulosis. Biopsy pending. CTA noted, moderate SMA stenosis. - Ileus. resolved. - GERD, PPI - Anemia. HH gradual decrease last few days [facility] - Await colon bx - Monitor labs - Supportive care Pt has been seen and examined by myself and Dr. Rodríguez and this note is written on his behalf Problem Qualifiers (1) Diverticulosis: Abmer Montenegro Jul 26, 2017 10:15
[2017-07-26] MEDS: DOCUSATE SODIUM 50 MG/SENNA 8.6 MG TAB PO SCH ×2 (11:24→21:11)
[2017-07-26] MEDS: PANTOPRAZOLE SOD 40 MG DELAYED RELEASE TAB PO SCH ×2 (11:24→21:11)
[2017-07-26] MEDS: predniSONE 5 MG TAB PO SCH (11:24)
[2017-07-26] MEDS: LACTOBACILLUS ACIDOPHILUS TAB PO SCH ×3 (11:24→18:00)
[2017-07-26] MEDS: AMIODARONE 200 MG TAB PO SCH (11:24)
[2017-07-26] MEDS: NYSTAT/DIPHENHY/LIDO MOUTHWASH (Adult) 120ML SWISH-SWAL SCH ×4 (11:25→21:12)
[2017-07-26] MEDS: METHADONE HCL 10 MG/10 ML ORAL SOLUTION PO SCH ×2 (11:25→21:11)
--- NOTE | 2017-07-26 11:36 | HHI.PR ---
Subjective Remarks Patient states he is doing well. No abdominal pain or painful swallowing. No shortness of breath. No rectal bleeding. Objective Vitals Vital Signs Date Time Temp Pulse Resp B/P (MAP) Pulse Ox O2 Delivery O2 Flow Rate FiO2 07/26/17 08:30 98.5 84 18 114/58 (76) 98 07/26/17 04:00 98.5 80 17 101/54 (70) 99 07/26/17 03:40 81 07/26/17 01:14 98.6 81 18 99/51 (67) 97 07/26/17 00:20 75 07/25/17 21:33 76 07/25/17 21:20 16 07/25/17 20:10 Nasal Cannula 2.00 07/25/17 20:10 99.3 82 15 104/55 (71) 98 07/25/17 16:00 82 07/25/17 16:00 98.9 95 99/58 (72) 07/25/17 14:25 95 Nasal Cannula 2.00 07/25/17 11:54 98.9 95 124/62 (82) I/O 07/25/17 07/25/17 07/25/17 07/26/17 07/26/17 07/26/17 07:00 15:00 23:00 07:00 15:00 23:00 Intake Total 240 ml 875 ml Output Total 200 ml 350 ml Balance 40 ml 525 ml Intake Oral 240 ml 875 ml Output Urine Total 200 ml 350 ml # Bowel Movements 0 Result Diagram: 07/26/17 0640 07/26/17 0640 Objective Remarks GENERAL: pleasant somewhat chronically ill appearing elderly obese male patient. SKIN: Warm and dry. Multiple tattoos on extremities. HEAD: Normocephalic. EYES: No scleral icterus. No injection or drainage. NECK: Supple, trachea midline. No JVD or lymphadenopathy. CARDIOVASCULAR: Regular rate and rhythm without murmurs, gallops, or rubs. RESPIRATORY: Breath sounds equal bilaterally. No accessory muscle use. CTAB. GASTROINTESTINAL: Abdomen soft, non-tender, nondistended. EXTREMITIES: No pedal edema. 1+ edema bilateral hands and forearms. NEUROLOGICAL: Awake, alert, and oriented x 3. Non-focal. Procedures Echo 06/26/2017 Mildly dilated left ventricle. The left ventricular systolic function is mildly reduced with an estimated ejection fraction in the range of 45- 50%. Wall thickness is normal. A pacemaker wire is noted. There is a pacemaker wire present in the right atrial cavity. [id number] mitral valve regurgitation. There is trace tricuspid valve regurgitation. A/P Problem List: (1) Diverticulosis ICD Code: K57.90 - Diverticulosis of intestine, part unspecified, without perforation or abscess without bleeding (2) ALEJANDRA (obstructive sleep apnea) ICD Code: G47.33 - Obstructive sleep apnea (adult) (pediatric) Status: Chronic (3) Acute respiratory failure ICD Code: J96.00 - Acute respiratory failure, unspecified whether with hypoxia or hypercapnia (4) Acute kidney injury ICD Code: N17.9 - Acute kidney failure, unspecified Status: Acute (5) Thrombocytopenia ICD Code: D69.6 - Thrombocytopenia, unspecified Status: Acute (6) Macrocytic anemia ICD Code: D53.9 - Nutritional anemia, unspecified Status: Chronic (7) Diabetes mellitus ICD Code: E11.9 - Type 2 diabetes mellitus without complications (8) Chronic systolic heart failure ICD Code: I50.22 - Chronic systolic (congestive) heart failure Status: Chronic (9) Sepsis ICD Code: A41.9 - Sepsis, unspecified organism Status: Acute (10) GI bleed ICD Code: K92.2 - Gastrointestinal hemorrhage, unspecified Status: Acute (11) Bacteremia due to Klebsiella pneumoniae ICD Code: R78.81 - Bacteremia Status: Acute (12) Ileus ICD Code: K56.7 - Ileus, unspecified Status: Resolved (13) Candidiasis of mouth and esophagus ICD Code: B37.81 - Candidal esophagitis; B37.0 - Candidal stomatitis Status: Acute (14) Pneumonia ICD Code: J18.9 - Pneumonia, unspecified organism Status: Acute (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, BCR/ABL-positive, not having achieved remission Status: Chronic (16) Pancytopenia ICD Code: D61.818 - Other pancytopenia Status: Chronic (17) COPD (chronic obstructive pulmonary disease) ICD Code: J44.9 - Chronic obstructive pulmonary disease, unspecified Status: Chronic (18) Acute renal failure ICD Code: N17.9 - Acute kidney failure, unspecified Status: Acute (19) Iron deficiency anemia ICD Code: D50.9 - Iron deficiency anemia, unspecified Status: Acute (20) AICD (automatic cardioverter/defibrillator) present ICD Code: Z95.810 - Presence of automatic (implantable) cardiac defibrillator Status: Acute (21) Anemia associated with acute blood loss ICD Code: D62 - Acute posthemorrhagic anemia Status: Acute (22) Cardiomyopathy ICD Code: I42.9 - Cardiomyopathy, unspecified Status: Chronic (23) Left bundle branch block ICD Code: I44.7 - Left bundle-branch block, unspecified Status: Chronic (24) Paroxysmal ventricular tachycardia ICD Code: I47.2 - Ventricular tachycardia Status: Resolved (25) Pancreatic cyst ICD Code: K86.2 - Cyst of pancreas (26) CKD (chronic kidney disease), stage III ICD Code: N18.3 - Chronic kidney disease, stage 3 (moderate) Status: Chronic (27) Dysphagia ICD Code: R13.10 - Dysphagia, unspecified Assessment and Plan 82-year-old male who was admitted on 06/24/2017 due to abdominal pain. He complained of right upper and lower quadrant abdominal pain radiating to his back. Patient was found to be hypotensive and received 4 L of normal saline. Lactate was essentially normal. CT abdomen pelvis showed diverticulosis, edematous gallbladder with some stones. Patient received vancomycin and Zosyn in the emergency department. He was managed in the ICU and required Levophed for hypotension. He had acute kidney injury as well which improved gradually. 1. Persistent GI bleeding/hematochezia. -colonoscopy 07/25 showing superficial ulcerations in the ascending and transverse colon indicative of ischemic event versus Crohn's disease. He had a polyp in the rectum which was snared. -CTA abdomen 07/24 revealed moderate stenosis of the SMA not likely causing any mesenteric ischemia, mild inflammatory changes in the distal descending and sigmoid colon, also 1.9 x 1.8 cm cystic density in the pancreatic head which is slightly more prominent than prior CT; benign and neoplastic cystic lesions are in the differential diagnosis. - bleeding scan 07/10 negative. s/p multiple pRBC transfusions. - EGD 07/13 - mild esophagitis, gastritis. - colonoscopy on 07/14 showing incomplete prep and internal and external hemorrhoids, patient refused repeat colonoscopy at that time. --Follow-up biopsy pathology of colon. -Cont PPI, taper off prednisone. - continue to follow H&H and monitor for any bleeding. -avoid hypotension 2. Sepsis, hypotension - resolved. blood cultures 07/06 were positive for Klebsiella pneumoniae, and he had a left lower lobe pneumonia. Now resolved status post course of antibiotics. 3. Abdominal pain, Ileus -resolved. Continue bowel regimen. 4. Hospital-acquired pneumonia -resolved status post course of antibiotics. 5. COPD - followed by Dr. Escamilla as outpatient. Will taper off prednisone 5 mg daily x 3 days then stop (patient takes as needed at home, not daily). Duo nebs as needed. 5. Chronic pain - cont methadone 2.5 mg twice a day and morphine 2 mg IV every 3 hours when necessary. 6. Oral thrush, and odynophagia with dysphagia - much improved -Pured diet - on nystatin and magic mouth wash. Status post course of Diflucan per ID. lidocaine swish and spit prior to taking by mouth meds. - GI input appreciated. S/p EGD 07/13 showing mild gastritis in the antrum and distal esophagitis - biopsies were negative for CMV/HSV, did show acute and chronic esophagitis, negative for H. pylori 7. Pancytopenia, CML - Heme/onc following. - Gleevec per oncology - No anti-coagulation due to pancytopenia. HIT negative. -Follow CBC 8. Acute kidney injury, Chronic kidney disease stage 3-4 - Creatinine is much improved and stable. Nephrology is following. -s/p diuresis. -ff BMP. 10. Hypernatremia -resolved. 11. Chronic systolic congestive heart failure - Echo from this admission shows ejection fraction 45-50% -monitor for any fluid overload, monitor I/O. -start PO lasix if BP increases (currently running low) -start low dose coreg to hold for SBP<110 12. Buttock and leg wounds: wound care following and has made recs, appreciate assistance 13. History of ventricular tachycardia status post AICD. Continue amiodarone. 14. Superficial venous thrombosis of left cephalic vein. Not anticoagulation candidate due to GI bleed and thrombocytopenia. 15. Pancreatic cyst -Discussed with GI Dr. Shore. Discussed with patient's and son. They prefer to avoid any aggressive pursue all of the pancreatic cysts. They prefer to follow-up with GI as outpatient. CA-19-9 and CEA are not elevated. DVT px - SCDs. No anti-coagulation due to thrombocytopenia, hematology recommendations. PT/OT following DO NOT RESUSCITATE status Palliative care following. Continuing with medical care, family declined hospice at this time. Discharge Planning SNF when stable for DC Monitor for any recurrence of GI bleeding, followup colon biopsies. If remains stable anticipate DC to SNF on Friday. Problem Qualifiers (1) Diverticulosis: (2) Acute respiratory failure: Qualified Codes: J96.02 - Acute respiratory failure with hypercapnia (3) Diabetes mellitus: Qualified Codes: E11.8 - Type 2 diabetes mellitus with unspecified complications (4) Pneumonia: Yisel Linares MD Jul 26, 2017 11:36
--- NOTE | 2017-07-26 12:05 | HHI.NPPN ---
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 I was called to see the patient because of elevated BUN and creatinine. Additional Remarks Patient is alert, not in distress, eating better and getting the PT. Objective Data Data Vital Signs Date Time Temp Pulse Resp B/P (MAP) Pulse Ox O2 Delivery O2 Flow Rate FiO2 07/26/17 08:30 98.5 84 18 114/58 (76) 98 07/26/17 04:00 98.5 80 17 101/54 (70) 99 07/26/17 03:40 81 07/26/17 01:14 98.6 81 18 99/51 (67) 97 07/26/17 00:20 75 07/25/17 21:33 76 07/25/17 21:20 16 07/25/17 20:10 Nasal Cannula 2.00 07/25/17 20:10 99.3 82 15 104/55 (71) 98 07/25/17 16:00 82 07/25/17 16:00 98.9 95 99/58 (72) 07/25/17 14:25 95 Nasal Cannula 2.00 -: 07/26/17 0640 07/26/17 0640 Physical Exam General Appearance: No Acute Distress, Comfortable Eyes Eye Exam: Pupils Equal Throat Throat Exam: Oral Mucosa [place] & Moist Neck Neck Exam: Neck Supple Pulmonary Resp Exam: Breath Sounds Equal, No Distress, Rhonchi, Sputum, Decreased Bases Cardiology CV Exam: Regular, Normal Sinus Rhythm Gastrointestinal/Abdomen GI Exam: Soft, Non-Tender, Bowel Sounds Present Extremeties Extremities Exam: Moderate Edema, Pitting Edema, Dependent Edema Neurologic Neuro Exam: Alert, Awake, Oriented Psychiatric Psych Exam: Appropriate Responses Assessment/Plan Assessment Summary: LEESA/Acute Renal Failure, Hypertension, CKD Stage IV Problem List: (1) COPD (chronic obstructive pulmonary disease) ICD Codes: J44.9 - Chronic obstructive pulmonary disease, unspecified Status: Chronic (2) Bronchitis ICD Codes: J40 - Bronchitis, not specified as acute or chronic Status: Acute (3) HTN (hypertension) ICD Codes: I10 - Essential (primary) hypertension Status: Chronic (4) Diabetes mellitus ICD Codes: E11.9 - Type 2 diabetes mellitus without complications (5) Acute respiratory failure ICD Codes: J96.00 - Acute respiratory failure, unspecified whether with hypoxia or hypercapnia (6) Severe sepsis ICD Codes: A41.9 - Sepsis, unspecified organism; R65.20 - Severe sepsis without septic shock Status: Acute (7) Acute kidney injury ICD Codes: N17.9 - Acute kidney failure, unspecified Status: Acute Plan Patient has been non oliguric. Has Chronic kidney disease, possibly stage 3- 4. Hematology following hx of CML and Pancytopenia ID is following. Lasix is on hold. Results of EGD and Barium swallow noted. Repeat Colonoscopy done, results noted. Better to get MRA and avoid Contrast if possible. Creatinine is 1.5 at his baseline. Continue PT. Problem Qualifiers (1) Diabetes mellitus: Qualified Codes: E11.8 - Type 2 diabetes mellitus with unspecified complications (2) Acute respiratory failure: Qualified Codes: J96.02 - Acute respiratory failure with hypercapnia Bismark Woods MD Jul 26, 2017 12:05
[2017-07-26] MEDS: BISACODYL EC 5 MG TABEC PO SCH (21:11)
[2017-07-27] VITALS (11 sets, daily range): BP systolic 91–119; BP diastolic 55–70; PULSE 65–80; RESP 16–18; TEMP 97.5–98.8; O2SAT 95–100
[2017-07-27] MEDS: CHLORHEXIDINE GLUCONATE 2 % 1 PACK (2 CLOTHS) TOP SCH (04:00)
[2017-07-27] MEDS: NYSTATIN 100,000 U/GM OINT 15 GM TUBE TOPICAL SCH ×3 (04:34→22:01)
[2017-07-27 05:41] LABS: AUTOMATED NEUTROPHIL # 3.3 TH/MM3 (1.8-7.7); BASOPHIL % 0.3 % (0.0-2.0); EOSINOPHIL % 0.4 % (0.0-4.0); HEMATOCRIT 22.4 % (39.0-51.0); HEMOGLOBIN 7.5 GM/DL (13.0-17.0); LYMPH % 55.8 % (9.0-44.0); LYMPHOCYTE # 4.7 TH/MM3 (1.0-4.8); MEAN CELL VOLUME 91.2 FL (80.0-100.0); MEAN CORPUSCULAR HEMOGLOBIN 30.6 PG (27.0-34.0); MEAN CORPUSCULAR HGB CONC 33.6 % (32.0-36.0); MEAN PLATELET VOLUME 8.8 FL (7.0-11.0); MONO % 3.9 % (0.0-8.0); MONOCYTE # 0.3 TH/MM3 (0-0.9); NEUT % 39.6 % (16.0-70.0); PLATELET COUNT 71 TH/MM3 (150-450); RED BLOOD COUNT 2.45 MIL/MM3 (4.50-5.90); RED CELL DISTRIBUTION WIDTH 18.3 % (11.6-17.2); WHITE BLOOD COUNT 8.4 TH/MM3 (4.0-11.0)
[2017-07-27 06:06] LABS: BICARBONATE 34.2 MEQ/L (21.0-32.0); CALCIUM 6.6 MG/DL (8.5-10.1); CREATININE 1.52 MG/DL (0.60-1.30)
[2017-07-27 06:18] LABS: CALCIUM-PROTEIN CORRECTED 8.3 MG/DL (8.5-10.1)
[2017-07-27] MEDS: INSULIN NovoLIN REGULAR SUPPLEMENTAL SCALE SQ SCH ×4 (08:00→22:00)
[2017-07-27 08:48] LABS: BANDS 7 % (0-6); BASOPHILS 1 % (0-2); LYMPHOCYTES 66 % (9-44); MONOCYTES 6 % (0-8); NEUTROPHIL # MANUAL DIFF 2.3 TH/MM3 (1.8-7.7); POLYS (SEG NEUTROPHILS) 20 % (16-70)
[2017-07-27] MEDS: SODIUM CHLORIDE 0.9% FLUSH 10 ML FLUSH IV FLUSH SCH ×3 (09:00→22:00)
[2017-07-27] MEDS: BACITRACIN TOP OINT 15 GM TUBE TOPICAL SCH ×2 (09:00→22:01)
[2017-07-27] MEDS ORDERED: CARVEDILOL 3.125 MG TAB PO SCH (09:00)
[2017-07-27] MEDS: AMIODARONE 200 MG TAB PO SCH (09:00)
--- NOTE | 2017-07-27 09:23 | HHI.GIFU ---
Subjective Remarks Patient resting in bed sleeping, awakes easily to his name. Reports he is doing well. Denies abdominal pain. No BM today. Tolerating diet. Objective Vitals I&O Vital Signs Date Time Temp Pulse Resp B/P (MAP) Pulse Ox O2 Delivery O2 Flow Rate FiO2 07/27/17 07:32 98 Nasal Cannula 3.00 07/27/17 04:24 97.6 71 16 115/59 (77) 97 07/27/17 00:15 98.6 67 16 111/58 (75) 95 07/27/17 00:01 70 07/26/17 22:11 18 07/26/17 21:15 98.6 77 18 112/62 (79) 95 07/26/17 21:10 Nasal Cannula 2.00 21 07/26/17 20:02 78 07/26/17 18:00 97.7 76 16 92/65 (74) 97 07/26/17 15:57 Nasal Cannula 2.00 07/26/17 14:20 97.8 83 16 122/61 (81) 98 07/26/17 13:00 85 Nasal Cannula 2.00 I/O 07/26/17 07/26/17 07/26/17 07/27/17 07/27/17 07/27/17 07:00 15:00 23:00 07:00 15:00 23:00 Intake Total 1440 ml 240 ml Output Total 400 ml 400 ml Balance 1040 ml -160 ml Intake Oral 1440 ml 240 ml Output Urine Total 400 ml 400 ml Laboratory Laboratory Tests Test 07/27/17 04:35 White Blood Count 8.4 Red Blood Count 2.45 Hemoglobin 7.5 Hematocrit 22.4 Mean Corpuscular Volume 91.2 Mean Corpuscular Hemoglobin 30.6 Mean Corpuscular Hemoglobin Concent 33.6 Red Cell Distribution Width 18.3 Platelet Count 71 Mean Platelet Volume 8.8 Neutrophils (%) (Auto) 39.6 Lymphocytes (%) (Auto) 55.8 Monocytes (%) (Auto) 3.9 Eosinophils (%) (Auto) 0.4 Basophils (%) (Auto) 0.3 Neutrophils # (Auto) 3.3 Lymphocytes # (Auto) 4.7 Monocytes # (Auto) 0.3 Eosinophils # (Auto) 0.0 Basophils # (Auto) 0.0 CBC Comment AUTO DIFF Differential Total Cells Counted 100 Neutrophils % (Manual) 20 Band Neutrophils % 7 Lymphocytes % 66 Monocytes % 6 Basophils % 1 Neutrophils # (Manual) 2.3 Differential Comment FINAL DIFF MANUAL Platelet Estimate LOW Platelet Morphology Comment NORMAL Blood Urea Nitrogen 20 Creatinine 1.52 Random Glucose 120 Total Protein 4.0 Calcium Level 6.6 Sodium Level 140 Potassium Level 4.6 Chloride Level 103 Carbon Dioxide Level 34.2 Anion Gap 3 Estimat Glomerular Filtration Rate 44 Protein Corrected Calcium 8.3 Date/Time Source Procedure Growth Status 07/08/17 06:32 Blood Peripheral Aerobic Blood Culture - Final Staphylococcus Epidermidis Complete 07/08/17 06:32 Blood Peripheral Anaerobic Blood Culture - Final QNS - SEE AEROBE REPORT Complete 07/21/17 02:30 Stool Stool Stool Occult Blood (EVELIA) - Final HEMOCCULT POSITIVE Complete 07/05/17 21:00 Sputum Expectorated Sputum Gram Stain - Final Complete 07/05/17 21:00 Sputum Culture - Final Klebsiella Pneumoniae Pseudomonas Aeruginosa Complete 06/24/17 15:55 Urine Catheterized Urine Urine Culture - Final NO GROWTH IN 48 HOURS. Complete Imaging Last Impressions Abdomen/Pelvis CT 07/24/17 0000 Signed Impressions: Service Date/Time: July 18:52 - CONCLUSION: 1. Redemonstration of small fusiform infrarenal distal aortic aneurysm measuring 3 point by 2.5 cm. 2. Celiac and CHIVO are patent. 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 Generally, single vessel mesenteric stenosis does not result in significant mesenteric ischemia absence distal embolism. 3. Redemonstration of colonic diverticulosis with apparent interval development of mild inflammatory changes in the distal descending and sigmoid colon. The ascending colon is grossly unremarkable by CT although incompletely evaluated due to lack of p.o. contrast and arterial phase imaging. In the absence of the provided clinical history, the findings are most consistent with diverticulitis. However given history of proximal colitis, this may reflect additional colonic involvement, perhaps infectious in etiology. 4. 1.9 x 1.8 cm cystic density lesion in the pancreatic head which appears more prominent than on prior examinations due to thinner slice selection for this exam. Overall, the size is unchanged from 09/19/2015 CT exam. Both benign and neoplastic cystic pancreatic lesions are in the differential diagnosis. 5. Small left pleural effusion and associated airspace disease at the left lung base. Feliciano Drake MD Modified Barium Swallow 07/21/17 0000 Signed Impressions: Service Date/Time: Friday, July 21, 2017 00:00 - CONCLUSION: Swallowing mechanism remains labored. Minimal vestibular penetration without aspiration due to rapid swallowing through a straw. Patient was unable to naturally swallow a barium tablet. Kendall Marti MD Chest X-Ray 07/19/17 0000 Signed Impressions: Service Date/Time: Wednesday, July 19, 2017 03:32 - CONCLUSION: Left basilar airspace disease suspected. Central venous catheter placement as above. Braulio Sellers MD Upper Extremity Ultrasound 07/18/17 0000 Signed Impressions: Service Date/Time: Tuesday, July 18, 2017 13:24 - CONCLUSION: 1. Occlusive thrombus within the proximal and mid aspect of the left cephalic vein. 2. The remaining veins of both upper extremities are patent. Alli Cohen MD GI Bleed Scan Nuclear Medicine 07/10/17 0000 Signed Impressions: Service Date/Time: June 16:42 - CONCLUSION: No active gastrointestinal bleeding Alli Teague MD Abdomen X-Ray 07/08/17 0600 Signed Impressions: Service Date/Time: Saturday, July 08, 2017 04:09 - CONCLUSION: Negative KUB. Alli Schroeder MD Hepatobiliary Scan Nuclear Medicine 06/25/17 0000 Signed Impressions: Service Date/Time: Sunday, June 25, 2017 10:43 - CONCLUSION: 1. No evidence for cystic duct obstruction. 2. Biliary enteric reflux. Braulio Sellers MD Physical Exam HEENT: Normocephalic; atraumatic. CHEST: Diminished CARDIAC: RRR. ABDOMEN: Soft, obese, nontender, no hepatomegaly, bowel sounds active x 4. EXTREMITIES: BLE edema MAC OPERATOR: Alert and oriented x 3 Assessment and Plan Assessment: (1) GERD (gastroesophageal reflux disease) ICD Codes: K21.9 - Gastro-esophageal reflux disease without esophagitis (2) Anemia ICD Codes: D64.9 - Anemia, unspecified (3) GI bleed ICD Codes: K92.2 - Gastrointestinal hemorrhage, unspecified Status: Acute (4) Diverticulosis ICD Codes: K57.90 - Diverticulosis of intestine, part unspecified, without perforation or abscess without bleeding (5) Dysphagia ICD Codes: R13.10 - Dysphagia, unspecified Plan - Dysphagia. S/P EGD 07/13/17--mild gastritis in the antrum and distal esophagitis. Biopsies negative for CMV/HSV, did show acute and chronic esophagitis, negative for H. pylori. Modified barium swallow (07/21) --> Swallowing mechanism remains labored. Minimal vestibular penetration without aspiration due to rapid swallowing through a straw. Pt was unable to naturally swallow a barium tablet. ST evaluation 07/18/17, recommended puree diet. - Bloody diarrhea, resolved. ischemia vs IBD vs infectious etiology . Bleeding scan (07/10/17)--no active GI bleeding. C. Diff negative. S/p incomplete colonoscopy (poor prep) (07/14/17) --> colon polyp, colonic ulcerations poss ischemic event, diverticulosis. CT Abdomen noted, moderate SMA stenosis. - Ileus. resolved. - GERD, PPI - Anemia. 07/27/17--HH 7.5/22.4 today, was 8.4/25.1 yesterday. No active bleeding. Patient denies abdominal pain. No BM today. Tolerating diet. Colon/rectum pathology pending. PLAN: - [facility] soft heart healthy diet - Await colon bx - Monitor labs - Monitor HH, transfuse as needed - Supportive care - Further recommendations to follow based on results of above. Patient seen and examined by Dr. Rodríguez and myself and this note is written on his behalf Problem Qualifiers (1) Diverticulosis: Joana Trejo Jul 27, 2017 09:23
[2017-07-27] MEDS: predniSONE 5 MG TAB PO SCH (09:40)
[2017-07-27] MEDS: PANTOPRAZOLE SOD 40 MG DELAYED RELEASE TAB PO SCH ×2 (09:40→22:00)
[2017-07-27] MEDS: DOCUSATE SODIUM 50 MG/SENNA 8.6 MG TAB PO SCH ×2 (09:40→22:00)
[2017-07-27] MEDS: LACTOBACILLUS ACIDOPHILUS TAB PO SCH ×3 (09:40→18:41)
[2017-07-27] MEDS: POLYETHYLENE GLYCOL 17 GM PKG PO SCH (09:40)
[2017-07-27] MEDS: SENNOSIDES SYRUP 8.8 MG/5 ML CUP PO SCH (09:40)
[2017-07-27] MEDS: NYSTAT/DIPHENHY/LIDO MOUTHWASH (Adult) 120ML SWISH-SWAL SCH ×4 (09:40→22:01)
[2017-07-27] MEDS: METHADONE HCL 10 MG/10 ML ORAL SOLUTION PO SCH ×2 (09:41→21:59)
[2017-07-27] MEDS ORDERED: FUROSEMIDE 20 MG/2 ML VIAL IV PUSH ONE ×2 (10:00→23:20)
[2017-07-27] MEDS ORDERED: SODIUM CHLOR 0.9% 250 ML INJ 250 ML IV ONE (10:00)
--- NOTE | 2017-07-27 11:49 | HHI.NPPN ---
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 I was called to see the patient because of elevated BUN and creatinine. Additional Remarks Patient is sleepy, not in distress, eating better. Objective Data Data Vital Signs Date Time Temp Pulse Resp B/P (MAP) Pulse Ox O2 Delivery O2 Flow Rate FiO2 07/27/17 09:36 98.4 69 18 91/55 (67) 100 07/27/17 07:32 98 Nasal Cannula 3.00 07/27/17 04:24 97.6 71 16 115/59 (77) 97 07/27/17 00:15 98.6 67 16 111/58 (75) 95 07/27/17 00:01 70 07/26/17 22:11 18 07/26/17 21:15 98.6 77 18 112/62 (79) 95 07/26/17 21:10 Nasal Cannula 2.00 21 07/26/17 20:02 78 07/26/17 18:00 97.7 76 16 92/65 (74) 97 07/26/17 15:57 Nasal Cannula 2.00 07/26/17 14:20 97.8 83 16 122/61 (81) 98 07/26/17 13:00 85 Nasal Cannula 2.00 -: 07/27/17 0435 07/27/17 0435 Physical Exam General Appearance: No Acute Distress, Comfortable Eyes Eye Exam: Pupils Equal Throat Throat Exam: Oral Mucosa [place] & Moist Neck Neck Exam: Neck Supple Pulmonary Resp Exam: Breath Sounds Equal, No Distress, Rhonchi, Sputum, Decreased Bases Cardiology CV Exam: Regular, Normal Sinus Rhythm Gastrointestinal/Abdomen GI Exam: Soft, Non-Tender, Bowel Sounds Present Extremeties Extremities Exam: Moderate Edema, Pitting Edema, Dependent Edema Neurologic Neuro Remarks Sleepy but arousable. Psychiatric Psych Exam: Appropriate Responses Assessment/Plan Assessment Summary: LEESA/Acute Renal Failure, Hypertension, CKD Stage IV Problem List: (1) COPD (chronic obstructive pulmonary disease) ICD Codes: J44.9 - Chronic obstructive pulmonary disease, unspecified Status: Chronic (2) Bronchitis ICD Codes: J40 - Bronchitis, not specified as acute or chronic Status: Acute (3) HTN (hypertension) ICD Codes: I10 - Essential (primary) hypertension Status: Chronic (4) Diabetes mellitus ICD Codes: E11.9 - Type 2 diabetes mellitus without complications (5) Acute respiratory failure ICD Codes: J96.00 - Acute respiratory failure, unspecified whether with hypoxia or hypercapnia (6) Severe sepsis ICD Codes: A41.9 - Sepsis, unspecified organism; R65.20 - Severe sepsis without septic shock Status: Acute (7) Acute kidney injury ICD Codes: N17.9 - Acute kidney failure, unspecified Status: Acute Plan Patient has been non oliguric. Has Chronic kidney disease, possibly stage 3- 4. Hematology following hx of CML and Pancytopenia ID is following. Lasix is on hold. Results of EGD and Barium swallow noted. Repeat Colonoscopy done, results noted. Better to get MRA and avoid Contrast if possible. Creatinine is 1.5 at his baseline. BP is low, not on any meds. Hgb. low, for transfusion. Problem Qualifiers (1) Diabetes mellitus: Qualified Codes: E11.8 - Type 2 diabetes mellitus with unspecified complications (2) Acute respiratory failure: Qualified Codes: J96.02 - Acute respiratory failure with hypercapnia Bismark Woods MD Jul 27, 2017 11:49
--- NOTE | 2017-07-27 11:59 | HHI.PR ---
Subjective Remarks Patient is in an irritable mood today. Denies any pain or dyspnea. Objective Vitals Vital Signs Date Time Temp Pulse Resp B/P (MAP) Pulse Ox O2 Delivery O2 Flow Rate FiO2 07/27/17 09:36 98.4 69 18 91/55 (67) 100 07/27/17 09:00 Nasal Cannula 2.00 07/27/17 07:32 98 Nasal Cannula 3.00 07/27/17 04:24 97.6 71 16 115/59 (77) 97 07/27/17 00:15 98.6 67 16 111/58 (75) 95 07/27/17 00:01 70 07/26/17 22:11 18 07/26/17 21:15 98.6 77 18 112/62 (79) 95 07/26/17 21:10 Nasal Cannula 2.00 21 07/26/17 20:02 78 07/26/17 18:00 97.7 76 16 92/65 (74) 97 07/26/17 15:57 Nasal Cannula 2.00 07/26/17 14:20 97.8 83 16 122/61 (81) 98 07/26/17 13:00 85 Nasal Cannula 2.00 I/O 07/26/17 07/26/17 07/26/17 07/27/17 07/27/17 07/27/17 07:00 15:00 23:00 07:00 15:00 23:00 Intake Total 1440 ml 240 ml Output Total 400 ml 400 ml Balance 1040 ml -160 ml Intake Oral 1440 ml 240 ml Output Urine Total 400 ml 400 ml Result Diagram: 07/27/17 0435 07/27/17 0435 Objective Remarks GENERAL: pleasant somewhat chronically ill appearing elderly obese male patient. SKIN: Warm and dry. Multiple tattoos on extremities. HEAD: Normocephalic. EYES: No scleral icterus. No injection or drainage. NECK: Supple, trachea midline. No JVD or lymphadenopathy. CARDIOVASCULAR: Regular rate and rhythm without murmurs, gallops, or rubs. RESPIRATORY: Breath sounds equal bilaterally. No accessory muscle use. CTAB. GASTROINTESTINAL: Abdomen soft, non-tender, nondistended. EXTREMITIES: No pedal edema. 1+ edema bilateral hands and forearms. NEUROLOGICAL: Awake, alert, and oriented x 3. Non-focal. Procedures Echo 06/26/2017 Mildly dilated left ventricle. The left ventricular systolic function is mildly reduced with an estimated ejection fraction in the range of 45- 50%. Wall thickness is normal. A pacemaker wire is noted. There is a pacemaker wire present in the right atrial cavity. [id number] mitral valve regurgitation. There is trace tricuspid valve regurgitation. A/P Problem List: (1) Diverticulosis ICD Code: K57.90 - Diverticulosis of intestine, part unspecified, without perforation or abscess without bleeding (2) ALEJANDRA (obstructive sleep apnea) ICD Code: G47.33 - Obstructive sleep apnea (adult) (pediatric) Status: Chronic (3) Acute respiratory failure ICD Code: J96.00 - Acute respiratory failure, unspecified whether with hypoxia or hypercapnia (4) Acute kidney injury ICD Code: N17.9 - Acute kidney failure, unspecified Status: Acute (5) Thrombocytopenia ICD Code: D69.6 - Thrombocytopenia, unspecified Status: Acute (6) Macrocytic anemia ICD Code: D53.9 - Nutritional anemia, unspecified Status: Chronic (7) Diabetes mellitus ICD Code: E11.9 - Type 2 diabetes mellitus without complications (8) Chronic systolic heart failure ICD Code: I50.22 - Chronic systolic (congestive) heart failure Status: Chronic (9) Sepsis ICD Code: A41.9 - Sepsis, unspecified organism Status: Acute (10) GI bleed ICD Code: K92.2 - Gastrointestinal hemorrhage, unspecified Status: Acute (11) Bacteremia due to Klebsiella pneumoniae ICD Code: R78.81 - Bacteremia Status: Acute (12) Ileus ICD Code: K56.7 - Ileus, unspecified Status: Resolved (13) Candidiasis of mouth and esophagus ICD Code: B37.81 - Candidal esophagitis; B37.0 - Candidal stomatitis Status: Acute (14) Pneumonia ICD Code: J18.9 - Pneumonia, unspecified organism Status: Acute (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, BCR/ABL-positive, not having achieved remission Status: Chronic (16) Pancytopenia ICD Code: D61.818 - Other pancytopenia Status: Chronic (17) COPD (chronic obstructive pulmonary disease) ICD Code: J44.9 - Chronic obstructive pulmonary disease, unspecified Status: Chronic (18) Acute renal failure ICD Code: N17.9 - Acute kidney failure, unspecified Status: Acute (19) Iron deficiency anemia ICD Code: D50.9 - Iron deficiency anemia, unspecified Status: Acute (20) AICD (automatic cardioverter/defibrillator) present ICD Code: Z95.810 - Presence of automatic (implantable) cardiac defibrillator Status: Acute (21) Anemia associated with acute blood loss ICD Code: D62 - Acute posthemorrhagic anemia Status: Acute (22) Cardiomyopathy ICD Code: I42.9 - Cardiomyopathy, unspecified Status: Chronic (23) Left bundle branch block ICD Code: I44.7 - Left bundle-branch block, unspecified Status: Chronic (24) Paroxysmal ventricular tachycardia ICD Code: I47.2 - Ventricular tachycardia Status: Resolved (25) Pancreatic cyst ICD Code: K86.2 - Cyst of pancreas (26) CKD (chronic kidney disease), stage III ICD Code: N18.3 - Chronic kidney disease, stage 3 (moderate) Status: Chronic (27) Dysphagia ICD Code: R13.10 - Dysphagia, unspecified Assessment and Plan 82-year-old male who was admitted on 06/24/2017 due to abdominal pain. He complained of right upper and lower quadrant abdominal pain radiating to his back. Patient was found to be hypotensive and received 4 L of normal saline. Lactate was essentially normal. CT abdomen pelvis showed diverticulosis, edematous gallbladder with some stones. Patient received vancomycin and Zosyn in the emergency department. He was managed in the ICU and required Levophed for hypotension. He had acute kidney injury as well which improved gradually. 1. Persistent GI bleeding/hematochezia. -colonoscopy 07/25 showing superficial ulcerations in the ascending and transverse colon indicative of ischemic event versus Crohn's disease. He had a polyp in the rectum which was snared. -CTA abdomen 07/24 revealed moderate stenosis of the SMA not likely causing any mesenteric ischemia, mild inflammatory changes in the distal descending and sigmoid colon, also 1.9 x 1.8 cm cystic density in the pancreatic head which is slightly more prominent than prior CT; benign and neoplastic cystic lesions are in the differential diagnosis. - bleeding scan 07/10 negative. s/p multiple pRBC transfusions. - EGD 07/13 - mild esophagitis, gastritis. - colonoscopy on 07/14 showing incomplete prep and internal and external hemorrhoids, patient refused repeat colonoscopy at that time. --Follow-up biopsy pathology of colon. -Cont PPI, taper off prednisone. - continue to follow H&H and monitor for any bleeding. -Hemoglobin downtrended to 7.5 today, no bleeding reported discussed with RN - will transfuse 2 units pRBCs -avoid hypotension 2. Sepsis, hypotension - resolved. blood cultures 07/06 were positive for Klebsiella pneumoniae, and he had a left lower lobe pneumonia. Now resolved status post course of antibiotics. 3. Abdominal pain, Ileus -resolved. Continue bowel regimen. 4. Hospital-acquired pneumonia -resolved status post course of antibiotics. 5. COPD - followed by Dr. Escamilla as outpatient. Will taper off prednisone 5 mg daily x 3 days then stop (patient takes as needed at home, not daily). Duo nebs as needed. 5. Chronic pain - cont methadone 2.5 mg twice a day and morphine 2 mg IV every 3 hours when necessary. 6. Oral thrush, and odynophagia with dysphagia - much improved -Pured diet - on nystatin and magic mouth wash. Status post course of Diflucan per ID. lidocaine swish and spit prior to taking by mouth meds. - GI input appreciated. S/p EGD 07/13 showing mild gastritis in the antrum and distal esophagitis - biopsies were negative for CMV/HSV, did show acute and chronic esophagitis, negative for H. pylori 7. Pancytopenia, CML - Heme/onc following. - Gleevec per oncology - No anti-coagulation due to pancytopenia. HIT negative. -Follow CBC 8. Acute kidney injury, Chronic kidney disease stage 3-4 - Creatinine is much improved and stable. Nephrology is following. -s/p diuresis. -ff BMP. 10. Hypernatremia -resolved. 11. Chronic systolic congestive heart failure - Echo from this admission shows ejection fraction 45-50% -monitor for any fluid overload, monitor I/O. -start PO lasix if BP increases (currently running low) -start low dose coreg to hold for SBP<110 12. Buttock and leg wounds: wound care following and has made recs, appreciate assistance 13. History of ventricular tachycardia status post AICD. Continue amiodarone. 14. Superficial venous thrombosis of left cephalic vein. Not anticoagulation candidate due to GI bleed and thrombocytopenia. 15. Pancreatic cyst -Discussed previously with GI Dr. Shore, patient's and son. They prefer to avoid any aggressive pursue all of the pancreatic cysts. They prefer to follow-up with GI as outpatient. CA-19-9 and CEA are not elevated. DVT px - SCDs. No anti-coagulation due to thrombocytopenia, hematology recommendations. PT/OT following DO NOT RESUSCITATE status Palliative care following. Continuing with medical care, family declined hospice at this time. Discharge Planning SNF when stable for DC Monitor for any recurrence of GI bleeding, followup colon biopsies. Being transfused 2 units packed red blood cells today. Discharge to group home facility pending colon biopsies and stabilization of hemoglobin. Problem Qualifiers (1) Diverticulosis: (2) Acute respiratory failure: Qualified Codes: J96.02 - Acute respiratory failure with hypercapnia (3) Diabetes mellitus: Qualified Codes: E11.8 - Type 2 diabetes mellitus with unspecified complications (4) Pneumonia: Yisel Linares MD Jul 27, 2017 11:59
[2017-07-27] MEDS: BISACODYL EC 5 MG TABEC PO SCH (21:00)
[2017-07-28] VITALS (8 sets, daily range): BP systolic 115–137; BP diastolic 64–82; PULSE 65–92; RESP 16–20; TEMP 97.9–98.7; O2SAT 95–100
[2017-07-28] MEDS: CHLORHEXIDINE GLUCONATE 2 % 1 PACK (2 CLOTHS) TOP SCH (02:59)
[2017-07-28 05:04] LABS: AUTOMATED NEUTROPHIL # 3.1 TH/MM3 (1.8-7.7); BASOPHIL % 0.6 % (0.0-2.0); EOSINOPHIL # 0.1 TH/MM3 (0-0.4); EOSINOPHIL % 0.9 % (0.0-4.0); HEMATOCRIT 30.5 % (39.0-51.0); HEMOGLOBIN 10.6 GM/DL (13.0-17.0); LYMPH % 53.7 % (9.0-44.0); LYMPHOCYTE # 4.2 TH/MM3 (1.0-4.8); MEAN CELL VOLUME 89.6 FL (80.0-100.0); MEAN CORPUSCULAR HEMOGLOBIN 31.1 PG (27.0-34.0); MEAN CORPUSCULAR HGB CONC 34.7 % (32.0-36.0); MONO % 4.6 % (0.0-8.0); MONOCYTE # 0.4 TH/MM3 (0-0.9); NEUT % 40.2 % (16.0-70.0); PLATELET COUNT 79 TH/MM3 (150-450); RED CELL DISTRIBUTION WIDTH 17.3 % (11.6-17.2); WHITE BLOOD COUNT 7.8 TH/MM3 (4.0-11.0)
[2017-07-28 05:41] LABS: BICARBONATE 32.7 MEQ/L (21.0-32.0); CALCIUM 6.9 MG/DL (8.5-10.1); CREATININE 1.47 MG/DL (0.60-1.30)
[2017-07-28] MEDS: NYSTATIN 100,000 U/GM OINT 15 GM TUBE TOPICAL SCH ×3 (05:51→21:24)
[2017-07-28 05:56] LABS: CALCIUM-PROTEIN CORRECTED 8.3 MG/DL (8.5-10.1); TOTAL PROTEIN 4.5 GM/DL (6.4-8.2)
[2017-07-28] MEDS: INSULIN NovoLIN REGULAR SUPPLEMENTAL SCALE SQ SCH ×4 (07:40→21:00)
[2017-07-28 08:56] LABS: BANDS 6 % (0-6); LYMPHOCYTES 73 % (9-44); MONOCYTES 1 % (0-8); OVALOCYTES 1+ (NORMAL); POLYS (SEG NEUTROPHILS) 19 % (16-70)
[2017-07-28 08:57] LABS: SMUDGE CELLS PRESENT PRESENT
[2017-07-28] MEDS: FERROUS SULFATE 300 MG /5ML UDC PO SCH ×2 (09:00→21:00)
[2017-07-28] MEDS: SODIUM CHLORIDE 0.9% FLUSH 10 ML FLUSH IV FLUSH SCH ×3 (09:00→21:19)
[2017-07-28] MEDS: NYSTAT/DIPHENHY/LIDO MOUTHWASH (Adult) 120ML SWISH-SWAL SCH ×5 (09:00→21:18)
[2017-07-28] MEDS: BACITRACIN TOP OINT 15 GM TUBE TOPICAL SCH ×2 (09:00→21:23)
[2017-07-28] MEDS: LACTOBACILLUS ACIDOPHILUS TAB PO SCH ×3 (09:00→17:59)
[2017-07-28] MEDS: PANTOPRAZOLE SOD 40 MG DELAYED RELEASE TAB PO SCH ×2 (09:21→21:00)
[2017-07-28] MEDS: POLYETHYLENE GLYCOL 17 GM PKG PO SCH (09:21)
[2017-07-28] MEDS: AMIODARONE 200 MG TAB PO SCH (09:21)
[2017-07-28] MEDS: SENNOSIDES SYRUP 8.8 MG/5 ML CUP PO SCH (09:21)
[2017-07-28] MEDS: DOCUSATE SODIUM 50 MG/SENNA 8.6 MG TAB PO SCH ×2 (09:21→21:00)
[2017-07-28] MEDS: METHADONE HCL 10 MG/10 ML ORAL SOLUTION PO SCH ×2 (09:22→21:00)
[2017-07-28] MEDS ORDERED: MORPHINE SULFATE 2 MG/ML INJ IV PUSH PRN (10:00)
--- NOTE | 2017-07-28 11:28 | HHI.GIFU ---
Subjective Remarks drowsy Using o2 per cannula abd large, soft, weak (Angela Zaidi) Objective Vitals I&O Vital Signs Date Time Temp Pulse Resp B/P (MAP) Pulse Ox O2 Delivery O2 Flow Rate FiO2 07/28/17 07:00 98.7 76 20 137/82 (100) 96 07/28/17 07:00 Nasal Cannula 2.00 07/28/17 07:00 70 07/28/17 04:33 65 07/28/17 03:00 98.6 74 16 133/64 100 07/28/17 00:34 66 07/28/17 00:00 97.9 65 16 115/64 97 07/27/17 23:25 98.0 65 16 119/59 99 07/27/17 22:59 16 07/27/17 21:47 Nasal Cannula 3.00 07/27/17 20:05 Nasal Cannula 2.00 21 07/27/17 20:04 97.5 80 18 111/65 97 07/27/17 20:03 73 07/27/17 19:39 97.9 78 18 96/70 100 07/27/17 17:00 98.8 80 16 110/64 (79) 96 07/27/17 11:45 97.8 72 18 100/58 (72) 97 I/O 07/27/17 07/27/17 07/27/17 07/28/17 07/28/17 07/28/17 07:00 15:00 23:00 07:00 15:00 23:00 Intake Total 240 ml 600 ml 240 ml 900 ml Output Total 400 ml 725 ml 400 ml Balance -160 ml -125 ml 240 ml 500 ml Intake Oral 240 ml 600 ml 240 ml Packed Cells 800 ml Blood Product IV Normal Saline Flush 100 ml Output Urine Total 400 ml 725 ml 400 ml Laboratory Laboratory Tests Test 07/28/17 04:50 White Blood Count 7.8 Red Blood Count 3.40 Hemoglobin 10.6 Hematocrit 30.5 Mean Corpuscular Volume 89.6 Mean Corpuscular Hemoglobin 31.1 Mean Corpuscular Hemoglobin Concent 34.7 Red Cell Distribution Width 17.3 Platelet Count 79 Mean Platelet Volume 8.0 Neutrophils (%) (Auto) 40.2 Lymphocytes (%) (Auto) 53.7 Monocytes (%) (Auto) 4.6 Eosinophils (%) (Auto) 0.9 Basophils (%) (Auto) 0.6 Neutrophils # (Auto) 3.1 Lymphocytes # (Auto) 4.2 Monocytes # (Auto) 0.4 Eosinophils # (Auto) 0.1 Basophils # (Auto) 0.0 CBC Comment AUTO DIFF Differential Total Cells Counted 100 Neutrophils % (Manual) 19 Band Neutrophils % 6 Lymphocytes % 73 Monocytes % 1 Eosinophils % 1 Neutrophils # (Manual) 2.0 Differential Comment FINAL DIFF MANUAL Atypical Lymphocytes Smudge Cells PRESENT Platelet Estimate LOW Platelet Morphology Comment NORMAL Ovalocytes 1+ Blood Urea Nitrogen 20 Creatinine 1.47 Random Glucose 80 Total Protein 4.5 Calcium Level 6.9 Sodium Level 140 Potassium Level 4.2 Chloride Level 103 Carbon Dioxide Level 32.7 Anion Gap 4 Estimat Glomerular Filtration Rate 46 Protein Corrected Calcium 8.3 Date/Time Source Procedure Growth Status 07/08/17 06:32 Blood Peripheral Aerobic Blood Culture - Final Staphylococcus Epidermidis Complete 07/08/17 06:32 Blood Peripheral Anaerobic Blood Culture - Final QNS - SEE AEROBE REPORT Complete 07/21/17 02:30 Stool Stool Stool Occult Blood (EVELIA) - Final HEMOCCULT POSITIVE Complete 07/05/17 21:00 Sputum Expectorated Sputum Gram Stain - Final Complete 07/05/17 21:00 Sputum Culture - Final Klebsiella Pneumoniae Pseudomonas Aeruginosa Complete 06/24/17 15:55 Urine Catheterized Urine Urine Culture - Final NO GROWTH IN 48 HOURS. Complete Imaging Last Impressions Abdomen/Pelvis CT 07/24/17 0000 Signed Impressions: Service Date/Time: July 18:52 - CONCLUSION: 1. Redemonstration of small fusiform infrarenal distal aortic aneurysm measuring 3 point by 2.5 cm. 2. Celiac and CHIVO are patent. 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 Generally, single vessel mesenteric stenosis does not result in significant mesenteric ischemia absence distal embolism. 3. Redemonstration of colonic diverticulosis with apparent interval development of mild inflammatory changes in the distal descending and sigmoid colon. The ascending colon is grossly unremarkable by CT although incompletely evaluated due to lack of p.o. contrast and arterial phase imaging. In the absence of the provided clinical history, the findings are most consistent with diverticulitis. However given history of proximal colitis, this may reflect additional colonic involvement, perhaps infectious in etiology. 4. 1.9 x 1.8 cm cystic density lesion in the pancreatic head which appears more prominent than on prior examinations due to thinner slice selection for this exam. Overall, the size is unchanged from 09/19/2015 CT exam. Both benign and neoplastic cystic pancreatic lesions are in the differential diagnosis. 5. Small left pleural effusion and associated airspace disease at the left lung base. Feliciano Drake MD Modified Barium Swallow 07/21/17 0000 Signed Impressions: Service Date/Time: Friday, July 21, 2017 00:00 - CONCLUSION: Swallowing mechanism remains labored. Minimal vestibular penetration without aspiration due to rapid swallowing through a straw. Patient was unable to naturally swallow a barium tablet. Kendall Marti MD Chest X-Ray 07/19/17 0000 Signed Impressions: Service Date/Time: Wednesday, July 19, 2017 03:32 - CONCLUSION: Left basilar airspace disease suspected. Central venous catheter placement as above. Braulio Sellers MD Upper Extremity Ultrasound 07/18/17 0000 Signed Impressions: Service Date/Time: Tuesday, July 18, 2017 13:24 - CONCLUSION: 1. Occlusive thrombus within the proximal and mid aspect of the left cephalic vein. 2. The remaining veins of both upper extremities are patent. Alli Cohen MD GI Bleed Scan Nuclear Medicine 07/10/17 0000 Signed Impressions: Service Date/Time: June 16:42 - CONCLUSION: No active gastrointestinal bleeding Alli Teague MD Abdomen X-Ray 07/08/17 0600 Signed Impressions: Service Date/Time: Saturday, July 08, 2017 04:09 - CONCLUSION: Negative KUB. Alli Schroeder MD Hepatobiliary Scan Nuclear Medicine 06/25/17 0000 Signed Impressions: Service Date/Time: Sunday, June 25, 2017 10:43 - CONCLUSION: 1. No evidence for cystic duct obstruction. 2. Biliary enteric reflux. Braulio Sellers MD Physical Exam HEENT: Normocephalic; atraumatic., oral cavity dry CHEST: Diminished, low volumes CARDIAC: RRR. ABDOMEN: Large, round, Soft, obese, nontender, no hepatomegaly, bowel sounds soft EXTREMITIES: BLE edema [employer]: Drowsy but responds weakly to verbal stimuli (Angela Zaidi) Assessment and Plan Assessment: (1) GERD (gastroesophageal reflux disease) ICD Codes: K21.9 - Gastro-esophageal reflux disease without esophagitis (2) Anemia ICD Codes: D64.9 - Anemia, unspecified (3) GI bleed ICD Codes: K92.2 - Gastrointestinal hemorrhage, unspecified Status: Acute (4) Diverticulosis ICD Codes: K57.90 - Diverticulosis of intestine, part unspecified, without perforation or abscess without bleeding (5) Dysphagia ICD Codes: R13.10 - Dysphagia, unspecified Plan - Dysphagia. S/P EGD 07/13/17--mild gastritis in the antrum and distal esophagitis. Biopsies negative for CMV/HSV, did show acute and chronic esophagitis, negative for H. pylori. Modified barium swallow (07/21) --> Swallowing mechanism remains labored. Minimal vestibular penetration without aspiration due to rapid swallowing through a straw. Pt was unable to naturally swallow a barium tablet. ST evaluation 07/18/17, recommended puree diet. - Bloody diarrhea, resolved. ischemia vs IBD vs infectious etiology . Bleeding scan (07/10/17)--no active GI bleeding. C. Diff negative. S/p incomplete colonoscopy (poor prep) (07/14/17) --> colon polyp, colonic ulcerations poss ischemic event, diverticulosis. CT Abdomen noted, moderate SMA stenosis. - Ileus. resolved. - 07-24-17 Colonoscopy redo, shows Colon polyp Colonic ulcerations possible ischemic event Diverticulosis - GERD, PPI - Anemia. Currently stable hemoglobin 10.6, no active bleeding noted, she denies any abdominal pain, decreased by mouth intake which could be related to failure to thrive Colon/rectum pathology pending. PLAN: - [facility] soft heart healthy diet - Await colon bx - Monitor labs - Monitor HH, transfuse as needed - Supportive care, DO NOT RESUSCITATE no code, palliative care involvement - Further recommendations to follow based on results of above. Patient seen and examined by Dr. Nunez and myself and this note is written on his behalf (Angela Zaidi) Physician Comments Agree with above. Order stool O&P, stool leukocytes and stool culture. Continue meds and wait for biopsy results. Further recommendations to follow. (Danielle Nunez MD) Problem Qualifiers (1) Diverticulosis: Angela Zaidi Jul 28, 2017 11:28 Danielle Nunez MD Jul 28, 2017 15:59
--- NOTE | 2017-07-28 11:58 | HHI.PR ---
Subjective Remarks Patient states he's feeling well. Denies abdominal pain or dyspnea. Objective Vitals Vital Signs Date Time Temp Pulse Resp B/P (MAP) Pulse Ox O2 Delivery O2 Flow Rate FiO2 07/28/17 07:00 98.7 76 20 137/82 (100) 96 07/28/17 07:00 Nasal Cannula 2.00 07/28/17 07:00 70 07/28/17 04:33 65 07/28/17 03:00 98.6 74 16 133/64 100 07/28/17 00:34 66 07/28/17 00:00 97.9 65 16 115/64 97 07/27/17 23:25 98.0 65 16 119/59 99 07/27/17 22:59 16 07/27/17 21:47 Nasal Cannula 3.00 07/27/17 20:05 Nasal Cannula 2.00 21 07/27/17 20:04 97.5 80 18 111/65 97 07/27/17 20:03 73 07/27/17 19:39 97.9 78 18 96/70 100 07/27/17 17:00 98.8 80 16 110/64 (79) 96 I/O 07/27/17 07/27/17 07/27/17 07/28/17 07/28/17 07/28/17 07:00 15:00 23:00 07:00 15:00 23:00 Intake Total 240 ml 600 ml 240 ml 900 ml Output Total 400 ml 725 ml 400 ml Balance -160 ml -125 ml 240 ml 500 ml Intake Oral 240 ml 600 ml 240 ml Packed Cells 800 ml Blood Product IV Normal Saline Flush 100 ml Output Urine Total 400 ml 725 ml 400 ml Result Diagram: 07/28/17 0450 07/28/17 0450 Objective Remarks GENERAL: pleasant somewhat chronically ill appearing elderly obese male patient. SKIN: Warm and dry. Multiple tattoos on extremities. HEAD: Normocephalic. EYES: No scleral icterus. No injection or drainage. NECK: Supple, trachea midline. No JVD or lymphadenopathy. CARDIOVASCULAR: Regular rate and rhythm without murmurs, gallops, or rubs. RESPIRATORY: Breath sounds equal bilaterally. No accessory muscle use. CTAB. GASTROINTESTINAL: Abdomen soft, non-tender, nondistended. EXTREMITIES: No pedal edema. 1+ edema bilateral hands and forearms. NEUROLOGICAL: Awake, alert, and oriented x 3. Non-focal. Procedures Echo 06/26/2017 Mildly dilated left ventricle. The left ventricular systolic function is mildly reduced with an estimated ejection fraction in the range of 45- 50%. Wall thickness is normal. A pacemaker wire is noted. There is a pacemaker wire present in the right atrial cavity. [id number] mitral valve regurgitation. There is trace tricuspid valve regurgitation. A/P Problem List: (1) Diverticulosis ICD Code: K57.90 - Diverticulosis of intestine, part unspecified, without perforation or abscess without bleeding (2) ALEJANDRA (obstructive sleep apnea) ICD Code: G47.33 - Obstructive sleep apnea (adult) (pediatric) Status: Chronic (3) Acute respiratory failure ICD Code: J96.00 - Acute respiratory failure, unspecified whether with hypoxia or hypercapnia (4) Acute kidney injury ICD Code: N17.9 - Acute kidney failure, unspecified Status: Acute (5) Thrombocytopenia ICD Code: D69.6 - Thrombocytopenia, unspecified Status: Acute (6) Macrocytic anemia ICD Code: D53.9 - Nutritional anemia, unspecified Status: Chronic (7) Diabetes mellitus ICD Code: E11.9 - Type 2 diabetes mellitus without complications (8) Chronic systolic heart failure ICD Code: I50.22 - Chronic systolic (congestive) heart failure Status: Chronic (9) Sepsis ICD Code: A41.9 - Sepsis, unspecified organism Status: Acute (10) GI bleed ICD Code: K92.2 - Gastrointestinal hemorrhage, unspecified Status: Acute (11) Bacteremia due to Klebsiella pneumoniae ICD Code: R78.81 - Bacteremia Status: Acute (12) Ileus ICD Code: K56.7 - Ileus, unspecified Status: Resolved (13) Candidiasis of mouth and esophagus ICD Code: B37.81 - Candidal esophagitis; B37.0 - Candidal stomatitis Status: Acute (14) Pneumonia ICD Code: J18.9 - Pneumonia, unspecified organism Status: Acute (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, BCR/ABL-positive, not having achieved remission Status: Chronic (16) Pancytopenia ICD Code: D61.818 - Other pancytopenia Status: Chronic (17) COPD (chronic obstructive pulmonary disease) ICD Code: J44.9 - Chronic obstructive pulmonary disease, unspecified Status: Chronic (18) Acute renal failure ICD Code: N17.9 - Acute kidney failure, unspecified Status: Acute (19) Iron deficiency anemia ICD Code: D50.9 - Iron deficiency anemia, unspecified Status: Acute (20) AICD (automatic cardioverter/defibrillator) present ICD Code: Z95.810 - Presence of automatic (implantable) cardiac defibrillator Status: Acute (21) Anemia associated with acute blood loss ICD Code: D62 - Acute posthemorrhagic anemia Status: Acute (22) Cardiomyopathy ICD Code: I42.9 - Cardiomyopathy, unspecified Status: Chronic (23) Left bundle branch block ICD Code: I44.7 - Left bundle-branch block, unspecified Status: Chronic (24) Paroxysmal ventricular tachycardia ICD Code: I47.2 - Ventricular tachycardia Status: Resolved (25) Pancreatic cyst ICD Code: K86.2 - Cyst of pancreas (26) CKD (chronic kidney disease), stage III ICD Code: N18.3 - Chronic kidney disease, stage 3 (moderate) Status: Chronic (27) Dysphagia ICD Code: R13.10 - Dysphagia, unspecified Assessment and Plan 82-year-old male who was admitted on 06/24/2017 due to abdominal pain. He complained of right upper and lower quadrant abdominal pain radiating to his back. Patient was found to be hypotensive and received 4 L of normal saline. Lactate was essentially normal. CT abdomen pelvis showed diverticulosis, edematous gallbladder with some stones. Patient received vancomycin and Zosyn in the emergency department. He was managed in the ICU and required Levophed for hypotension. He had acute kidney injury as well which improved gradually. 1. Persistent GI bleeding/hematochezia. -colonoscopy 07/25 showing superficial ulcerations in the ascending and transverse colon indicative of ischemic event versus Crohn's disease. He had a polyp in the rectum which was snared. -CTA abdomen 07/24 revealed moderate stenosis of the SMA not likely causing any mesenteric ischemia, mild inflammatory changes in the distal descending and sigmoid colon, also 1.9 x 1.8 cm cystic density in the pancreatic head which is slightly more prominent than prior CT; benign and neoplastic cystic lesions are in the differential diagnosis. - bleeding scan 07/10 negative. s/p multiple pRBC transfusions. - EGD 07/13 - mild esophagitis, gastritis. - colonoscopy on 07/14 showing incomplete prep and internal and external hemorrhoids, patient refused repeat colonoscopy at that time. --Follow-up biopsy pathology of colon-discussed with path lab this should be back this afternoon -Cont PPI, taper off prednisone. - continue to follow H&H and monitor for any bleeding. -hb 10.6 today s/p 2 units pRBCs yesterday -avoid hypotension 2. Sepsis, hypotension - resolved. blood cultures 07/06 were positive for Klebsiella pneumoniae, and he had a left lower lobe pneumonia. Now resolved status post course of antibiotics. 3. Abdominal pain, Ileus -resolved. Continue bowel regimen. 4. Hospital-acquired pneumonia -resolved status post course of antibiotics. 5. COPD - followed by Dr. Escamilla as outpatient. Will taper off prednisone 5 mg daily x 3 days then stop (patient takes as needed at home, not daily). Duo nebs as needed. 5. Chronic pain - cont methadone 2.5 mg twice a day and morphine 2 mg IV every 3 hours when necessary. 6. Oral thrush, and odynophagia with dysphagia - much improved -Pured diet - on nystatin and magic mouth wash. Status post course of Diflucan per ID. lidocaine swish and spit prior to taking by mouth meds. - GI input appreciated. S/p EGD 07/13 showing mild gastritis in the antrum and distal esophagitis - biopsies were negative for CMV/HSV, did show acute and chronic esophagitis, negative for H. pylori 7. Pancytopenia, CML - Heme/onc following. - Gleevec per oncology - No anti-coagulation due to pancytopenia. HIT negative. -Follow CBC 8. Acute kidney injury, Chronic kidney disease stage 3-4 - Creatinine is much improved and stable. Nephrology is following. -s/p diuresis. -ff BMP. 10. Hypernatremia -resolved. 11. Chronic systolic congestive heart failure - Echo from this admission shows ejection fraction 45-50% -monitor for any fluid overload, monitor I/O. -start PO lasix if BP increases (currently running low) -unable to start BB due to hypotension 12. Buttock and leg wounds: wound care following and has made recs, appreciate assistance 13. History of ventricular tachycardia status post AICD. Continue amiodarone. 14. Superficial venous thrombosis of left cephalic vein. Not anticoagulation candidate due to GI bleed and thrombocytopenia. 15. Pancreatic cyst -Discussed previously with GI Dr. Shore, patient's and son. They prefer to avoid any aggressive pursue all of the pancreatic cysts. They prefer to follow-up with GI as outpatient. CA-19-9 and CEA are not elevated. DVT px - SCDs. No anti-coagulation due to thrombocytopenia, hematology recommendations. PT/OT following DO NOT RESUSCITATE status Palliative care following. Family declined hospice at this time. Discharge Planning SNF when stable for DC Monitor for any recurrence of GI bleeding, followup colon biopsies. Discharge to halfway facility pending colon biopsies which should be resulted this afternoon and if Hb stable in a.m., pending GI clearance, possibly tomorrow. Problem Qualifiers (1) Diverticulosis: (2) Acute respiratory failure: Qualified Codes: J96.02 - Acute respiratory failure with hypercapnia (3) Diabetes mellitus: Qualified Codes: E11.8 - Type 2 diabetes mellitus with unspecified complications (4) Pneumonia: Yisel Linares MD Jul 28, 2017 11:58
--- NOTE | 2017-07-28 16:42 | HHI.NPPN ---
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 I was called to see the patient because of elevated BUN and creatinine. Additional Remarks Patient is more alert, no SOB, not in distress. Objective Data Data Vital Signs Date Time Temp Pulse Resp B/P (MAP) Pulse Ox O2 Delivery O2 Flow Rate FiO2 07/28/17 11:00 98.0 76 18 126/67 (86) 97 07/28/17 07:00 98.7 76 20 137/82 (100) 96 07/28/17 07:00 Nasal Cannula 2.00 07/28/17 07:00 70 07/28/17 04:33 65 07/28/17 03:00 98.6 74 16 133/64 100 07/28/17 00:34 66 07/28/17 00:00 97.9 65 16 115/64 97 07/27/17 23:25 98.0 65 16 119/59 99 07/27/17 22:59 16 07/27/17 21:47 Nasal Cannula 3.00 07/27/17 20:05 Nasal Cannula 2.00 21 07/27/17 20:04 97.5 80 18 111/65 97 07/27/17 20:03 73 07/27/17 19:39 97.9 78 18 96/70 100 07/27/17 17:00 98.8 80 16 110/64 (79) 96 -: 07/28/17 0450 07/28/17 0450 Physical Exam General Appearance: No Acute Distress, Comfortable Eyes Eye Exam: Pupils Equal Throat Throat Exam: Oral Mucosa Ethete & Moist Neck Neck Exam: Neck Supple Pulmonary Resp Exam: Breath Sounds Equal, No Distress, Rhonchi, Sputum, Decreased Bases Cardiology CV Exam: Regular, Normal Sinus Rhythm Gastrointestinal/Abdomen GI Exam: Soft, Non-Tender, Bowel Sounds Present Extremeties Extremities Exam: Moderate Edema, Pitting Edema, Dependent Edema Neurologic Neuro Remarks Sleepy but arousable. Psychiatric Psych Exam: Appropriate Responses Assessment/Plan Assessment Summary: LEESA/Acute Renal Failure, Hypertension, CKD Stage IV Problem List: (1) COPD (chronic obstructive pulmonary disease) ICD Codes: J44.9 - Chronic obstructive pulmonary disease, unspecified Status: Chronic (2) Bronchitis ICD Codes: J40 - Bronchitis, not specified as acute or chronic Status: Acute (3) HTN (hypertension) ICD Codes: I10 - Essential (primary) hypertension Status: Chronic (4) Diabetes mellitus ICD Codes: E11.9 - Type 2 diabetes mellitus without complications (5) Acute respiratory failure ICD Codes: J96.00 - Acute respiratory failure, unspecified whether with hypoxia or hypercapnia (6) Severe sepsis ICD Codes: A41.9 - Sepsis, unspecified organism; R65.20 - Severe sepsis without septic shock Status: Acute (7) Acute kidney injury ICD Codes: N17.9 - Acute kidney failure, unspecified Status: Acute Plan Patient has been non oliguric. Has Chronic kidney disease, possibly stage 3- 4. Hematology following hx of CML and Pancytopenia ID is following. Lasix is on hold. Results of EGD and Barium swallow noted. Repeat Colonoscopy done, results noted. Better to get MRA and avoid Contrast if possible. Creatinine is 1.4-1.5 at his baseline. BP is better and Hgb improve after transfusion. Problem Qualifiers (1) Diabetes mellitus: Qualified Codes: E11.8 - Type 2 diabetes mellitus with unspecified complications (2) Acute respiratory failure: Qualified Codes: J96.02 - Acute respiratory failure with hypercapnia Bismark Woods MD Jul 28, 2017 16:42
[2017-07-28] MEDS: BISACODYL EC 5 MG TABEC PO SCH (21:18)
[2017-07-28] MEDS: IMATINIB MESYLATE 100 MG TAB PO SCH (21:30)
[2017-07-29] VITALS (7 sets, daily range): BP systolic 97–134; BP diastolic 59–98; PULSE 86–94; RESP 18–20; TEMP 97.6–98.3; O2SAT 92–99
[2017-07-29] MEDS: CHLORHEXIDINE GLUCONATE 2 % 1 PACK (2 CLOTHS) TOP SCH (03:41)
[2017-07-29] MEDS: NYSTATIN 100,000 U/GM OINT 15 GM TUBE TOPICAL SCH ×2 (06:00→14:52)
[2017-07-29 07:09] LABS: AUTOMATED NEUTROPHIL # 3.4 TH/MM3 (1.8-7.7); BASOPHIL # 0.1 TH/MM3 (0-0.2); BASOPHIL % 0.6 % (0.0-2.0); EOSINOPHIL # 0.1 TH/MM3 (0-0.4); EOSINOPHIL % 0.5 % (0.0-4.0); HEMATOCRIT 32.3 % (39.0-51.0); LYMPHOCYTE # 6.9 TH/MM3 (1.0-4.8); MEAN CELL VOLUME 89.2 FL (80.0-100.0); MEAN CORPUSCULAR HEMOGLOBIN 30.3 PG (27.0-34.0); MEAN PLATELET VOLUME 8.1 FL (7.0-11.0); MONO % 5.2 % (0.0-8.0); MONOCYTE # 0.6 TH/MM3 (0-0.9); NEUT % 30.7 % (16.0-70.0); PLATELET COUNT 90 TH/MM3 (150-450); RED BLOOD COUNT 3.62 MIL/MM3 (4.50-5.90); RED CELL DISTRIBUTION WIDTH 17.1 % (11.6-17.2)
[2017-07-29] MEDS: INSULIN NovoLIN REGULAR SUPPLEMENTAL SCALE SQ SCH ×2 (08:00→12:00)
[2017-07-29] MEDS: AMIODARONE 200 MG TAB PO SCH (08:30)
[2017-07-29] MEDS: PANTOPRAZOLE SOD 40 MG DELAYED RELEASE TAB PO SCH (08:30)
[2017-07-29] MEDS: DOCUSATE SODIUM 50 MG/SENNA 8.6 MG TAB PO SCH (08:30)
[2017-07-29] MEDS: SODIUM CHLORIDE 0.9% FLUSH 10 ML FLUSH IV FLUSH SCH ×2 (08:31→08:32)
[2017-07-29] MEDS: POLYETHYLENE GLYCOL 17 GM PKG PO SCH (08:31)
[2017-07-29] MEDS: LACTOBACILLUS ACIDOPHILUS TAB PO SCH ×2 (08:31→14:51)
[2017-07-29 08:32] LABS: BANDS 5 % (0-6); LYMPHOCYTES 61 % (9-44); MONOCYTES 6 % (0-8); NEUTROPHIL # MANUAL DIFF 3.6 TH/MM3 (1.8-7.7); POLYS (SEG NEUTROPHILS) 28 % (16-70)
[2017-07-29 08:34] LABS: SMUDGE CELLS PRESENT PRESENT
[2017-07-29] MEDS: BACITRACIN TOP OINT 15 GM TUBE TOPICAL SCH (08:37)
[2017-07-29] MEDS: NYSTAT/DIPHENHY/LIDO MOUTHWASH (Adult) 120ML SWISH-SWAL SCH ×2 (08:42→14:51)
[2017-07-29] MEDS: SENNOSIDES SYRUP 8.8 MG/5 ML CUP PO SCH (08:42)
[2017-07-29] MEDS: METHADONE HCL 10 MG/10 ML ORAL SOLUTION PO SCH (08:43)
[2017-07-29] MEDS: FERROUS SULFATE 300 MG /5ML UDC PO SCH (08:43)
--- NOTE | 2017-07-29 13:08 | HHI.GIFU ---
Subjective Remarks Pt resting in bed, eating lunch and drinking ensure. at bedside. C/o that he feels like he needs to have a BM and can't, "there is one sh that is blocking the others." He has scheduled laxatives and stool softeners but does not always accept his meds, he did today however. (Debora Carver) Objective Vitals I&O Vital Signs Date Time Temp Pulse Resp B/P (MAP) Pulse Ox O2 Delivery O2 Flow Rate FiO2 07/29/17 11:46 97.9 88 18 104/65 (78) 99 07/29/17 09:00 92 Nasal Cannula 3.00 07/29/17 07:59 98.3 92 18 134/79 (97) 98 07/29/17 07:45 Nasal Cannula 3.00 07/29/17 07:00 94 07/29/17 04:00 93 07/29/17 04:00 97.6 88 20 97/59 (72) 98 07/29/17 00:00 86 07/29/17 00:00 98.3 91 20 129/71 (90) 98 07/28/17 20:00 98.7 90 20 115/68 (84) 95 07/28/17 20:00 92 07/28/17 19:11 Nasal Cannula 2.00 21 07/28/17 17:05 98.7 84 18 124/80 (95) 99 I/O 07/28/17 07/28/17 07/28/17 07/29/17 07/29/17 07/29/17 07:00 15:00 23:00 07:00 15:00 23:00 Intake Total 900 ml Output Total 400 ml 725 ml 100 ml Balance 500 ml -725 ml -100 ml Packed Cells 800 ml Blood Product IV Normal Saline Flush 100 ml Output Urine Total 400 ml 725 ml 100 ml Laboratory Laboratory Tests Test 07/29/17 06:45 White Blood Count 11.0 Red Blood Count 3.62 Hemoglobin 11.0 Hematocrit 32.3 Mean Corpuscular Volume 89.2 Mean Corpuscular Hemoglobin 30.3 Mean Corpuscular Hemoglobin Concent 34.0 Red Cell Distribution Width 17.1 Platelet Count 90 Mean Platelet Volume 8.1 Neutrophils (%) (Auto) 30.7 Lymphocytes (%) (Auto) 63.0 Monocytes (%) (Auto) 5.2 Eosinophils (%) (Auto) 0.5 Basophils (%) (Auto) 0.6 Neutrophils # (Auto) 3.4 Lymphocytes # (Auto) 6.9 Monocytes # (Auto) 0.6 Eosinophils # (Auto) 0.1 Basophils # (Auto) 0.1 CBC Comment AUTO DIFF Differential Total Cells Counted 100 Neutrophils % (Manual) 28 Band Neutrophils % 5 Lymphocytes % 61 Monocytes % 6 Neutrophils # (Manual) 3.6 Differential Comment FINAL DIFF MANUAL Smudge Cells PRESENT Platelet Estimate LOW Platelet Morphology Comment NORMAL Date/Time Source Procedure Growth Status 07/08/17 06:32 Blood Peripheral Aerobic Blood Culture - Final Staphylococcus Epidermidis Complete 07/08/17 06:32 Blood Peripheral Anaerobic Blood Culture - Final QNS - SEE AEROBE REPORT Complete 07/21/17 02:30 Stool Stool Stool Occult Blood (EVELIA) - Final HEMOCCULT POSITIVE Complete 07/05/17 21:00 Sputum Expectorated Sputum Gram Stain - Final Complete 07/05/17 21:00 Sputum Culture - Final Klebsiella Pneumoniae Pseudomonas Aeruginosa Complete 06/24/17 15:55 Urine Catheterized Urine Urine Culture - Final NO GROWTH IN 48 HOURS. Complete Physical Exam HEENT: Normocephalic; atraumatic., CHEST: wheezes, rhonchi CARDIAC: RRR. ABDOMEN: Large, round, Soft, obese, nontender, no hepatomegaly, bowel sounds soft EXTREMITIES: BLE edema [employer]: AOx[employer] (Dbeora Carver) Assessment and Plan Plan - Dysphagia. S/P EGD 07/13/17--mild gastritis in the antrum and distal esophagitis. Biopsies negative for CMV/HSV, did show acute and chronic esophagitis, negative for H. pylori. Modified barium swallow (07/21) --> Swallowing mechanism remains labored. Minimal vestibular penetration without aspiration due to rapid swallowing through a straw. Pt was unable to naturally swallow a barium tablet. ST evaluation 07/18/17, recommended puree diet. eating well today - Bloody diarrhea, resolved. ischemia vs IBD vs infectious etiology . Bleeding scan (07/10/17)--no active GI bleeding. C. Diff negative. S/p incomplete colonoscopy (poor prep) (07/14/17) --> colon polyp, colonic ulcerations poss ischemic event, diverticulosis. CT Abdomen noted, moderate SMA stenosis. - Ileus. resolved. Colonoscopy redo, shows Colon polyp Colonic ulcerations possible ischemic event, Diverticulosis path benign, ulcer - GERD, PPI - Anemia. HH stable. - constipation - has bowe4l regimen but not compliant with daily meds, has been refusing. feels he has stool that he can't get out. will try Fleet's PLAN: - Mech soft heart healthy diet - Fleet's' enema - encourage daily bowel regimen - Monitor labs - Monitor HH, transfuse as needed - Supportive care, DO NOT RESUSCITATE no code, palliative care involvement - GI will s/o, please reconsult if needed Patient seen and examined by Dr. Nunez and myself and this note is written on his behalf (Debora Carver) Physician Comments As above, please notify us if needed. (Danielle Nunez MD) Debora Carver Jul 29, 2017 13:08 Danielle Nunez MD Jul 29, 2017 14:13
--- NOTE | 2017-07-29 14:53 | HHI.PR ---
Subjective Remarks c/o constipation. Denies nausea, vomiting or abdominal pain. Objective Vitals Vital Signs Date Time Temp Pulse Resp B/P (MAP) Pulse Ox O2 Delivery O2 Flow Rate FiO2 07/29/17 11:46 97.9 88 18 104/65 (78) 99 07/29/17 09:00 92 Nasal Cannula 3.00 07/29/17 07:59 98.3 92 18 134/79 (97) 98 07/29/17 07:45 Nasal Cannula 3.00 07/29/17 07:00 94 07/29/17 04:00 93 07/29/17 04:00 97.6 88 20 97/59 (72) 98 07/29/17 00:00 86 07/29/17 00:00 98.3 91 20 129/71 (90) 98 07/28/17 20:00 98.7 90 20 115/68 (84) 95 07/28/17 20:00 92 07/28/17 19:11 Nasal Cannula 2.00 21 07/28/17 17:05 98.7 84 18 124/80 (95) 99 I/O 07/28/17 07/28/17 07/28/17 07/29/17 07/29/17 07/29/17 07:00 15:00 23:00 07:00 15:00 23:00 Intake Total 900 ml Output Total 400 ml 725 ml 100 ml Balance 500 ml -725 ml -100 ml Packed Cells 800 ml Blood Product IV Normal Saline Flush 100 ml Output Urine Total 400 ml 725 ml 100 ml Result Diagram: 07/29/17 0645 07/28/17 0450 Objective Remarks GENERAL: pleasant somewhat chronically ill appearing elderly obese male patient. SKIN: Warm and dry. Multiple tattoos on extremities. HEAD: Normocephalic. EYES: No scleral icterus. No injection or drainage. NECK: Supple, trachea midline. No JVD or lymphadenopathy. CARDIOVASCULAR: Regular rate and rhythm without murmurs, gallops, or rubs. RESPIRATORY: Breath sounds equal bilaterally. No accessory muscle use. CTAB. GASTROINTESTINAL: Abdomen soft, non-tender, nondistended. EXTREMITIES: No pedal edema. 1+ edema bilateral hands and forearms. NEUROLOGICAL: Awake, alert, and oriented x 3. Non-focal. Procedures Echo 06/26/2017 Mildly dilated left ventricle. The left ventricular systolic function is mildly reduced with an estimated ejection fraction in the range of 45- 50%. Wall thickness is normal. A pacemaker wire is noted. There is a pacemaker wire present in the right atrial cavity. Pyuis-tq-figu mitral valve regurgitation. There is trace tricuspid valve regurgitation. A/P Problem List: (1) Diverticulosis ICD Code: K57.90 - Diverticulosis of intestine, part unspecified, without perforation or abscess without bleeding (2) ALEJANDRA (obstructive sleep apnea) ICD Code: G47.33 - Obstructive sleep apnea (adult) (pediatric) Status: Chronic (3) Acute respiratory failure ICD Code: J96.00 - Acute respiratory failure, unspecified whether with hypoxia or hypercapnia (4) Acute kidney injury ICD Code: N17.9 - Acute kidney failure, unspecified Status: Acute (5) Thrombocytopenia ICD Code: D69.6 - Thrombocytopenia, unspecified Status: Acute (6) Macrocytic anemia ICD Code: D53.9 - Nutritional anemia, unspecified Status: Chronic (7) Diabetes mellitus ICD Code: E11.9 - Type 2 diabetes mellitus without complications (8) Chronic systolic heart failure ICD Code: I50.22 - Chronic systolic (congestive) heart failure Status: Chronic (9) Sepsis ICD Code: A41.9 - Sepsis, unspecified organism Status: Acute (10) GI bleed ICD Code: K92.2 - Gastrointestinal hemorrhage, unspecified Status: Acute (11) Bacteremia due to Klebsiella pneumoniae ICD Code: R78.81 - Bacteremia Status: Acute (12) Ileus ICD Code: K56.7 - Ileus, unspecified Status: Resolved (13) Candidiasis of mouth and esophagus ICD Code: B37.81 - Candidal esophagitis; B37.0 - Candidal stomatitis Status: Acute (14) Pneumonia ICD Code: J18.9 - Pneumonia, unspecified organism Status: Acute (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, BCR/ABL-positive, not having achieved remission Status: Chronic (16) Pancytopenia ICD Code: D61.818 - Other pancytopenia Status: Chronic (17) COPD (chronic obstructive pulmonary disease) ICD Code: J44.9 - Chronic obstructive pulmonary disease, unspecified Status: Chronic (18) Acute renal failure ICD Code: N17.9 - Acute kidney failure, unspecified Status: Acute (19) Iron deficiency anemia ICD Code: D50.9 - Iron deficiency anemia, unspecified Status: Acute (20) AICD (automatic cardioverter/defibrillator) present ICD Code: Z95.810 - Presence of automatic (implantable) cardiac defibrillator Status: Acute (21) Anemia associated with acute blood loss ICD Code: D62 - Acute posthemorrhagic anemia Status: Acute (22) Cardiomyopathy ICD Code: I42.9 - Cardiomyopathy, unspecified Status: Chronic (23) Left bundle branch block ICD Code: I44.7 - Left bundle-branch block, unspecified Status: Chronic (24) Paroxysmal ventricular tachycardia ICD Code: I47.2 - Ventricular tachycardia Status: Resolved (25) Pancreatic cyst ICD Code: K86.2 - Cyst of pancreas (26) CKD (chronic kidney disease), stage III ICD Code: N18.3 - Chronic kidney disease, stage 3 (moderate) Status: Chronic (27) Dysphagia ICD Code: R13.10 - Dysphagia, unspecified Assessment and Plan 82-year-old male who was admitted on 06/24/2017 due to abdominal pain. He complained of right upper and lower quadrant abdominal pain radiating to his back. Patient was found to be hypotensive and received 4 L of normal saline. Lactate was essentially normal. CT abdomen pelvis showed diverticulosis, edematous gallbladder with some stones. Patient received vancomycin and Zosyn in the emergency department. He was managed in the ICU and required Levophed for hypotension. He had acute kidney injury as well which improved gradually. 1. Persistent GI bleeding/hematochezia. -colonoscopy 07/25 showing superficial ulcerations in the ascending and transverse colon indicative of ischemic event versus Crohn's disease. He had a polyp in the rectum which was snared. -CTA abdomen 07/24 revealed moderate stenosis of the SMA not likely causing any mesenteric ischemia, mild inflammatory changes in the distal descending and sigmoid colon, also 1.9 x 1.8 cm cystic density in the pancreatic head which is slightly more prominent than prior CT; benign and neoplastic cystic lesions are in the differential diagnosis. - bleeding scan 07/10 negative. s/p multiple pRBC transfusions. - EGD 07/13 - mild esophagitis, gastritis. - colonoscopy on 07/14 showing incomplete prep and internal and external hemorrhoids, patient refused repeat colonoscopy at that time. --Follow-up biopsy pathology of colon-discussed with path lab this should be back this afternoon -Cont PPI, taper off prednisone. - continue to follow H&H and monitor for any bleeding. -hb 10.6 today s/p 2 units pRBCs yesterday -avoid hypotension 2. Sepsis, hypotension - resolved. blood cultures 07/06 were positive for Klebsiella pneumoniae, and he had a left lower lobe pneumonia. Now resolved status post course of antibiotics. 3. Abdominal pain, Ileus -resolved. Continue bowel regimen. 4. Hospital-acquired pneumonia -resolved status post course of antibiotics. 5. COPD - followed by Dr. Escamilla as outpatient. Will taper off prednisone 5 mg daily x 3 days then stop (patient takes as needed at home, not daily). Duo nebs as needed. 5. Chronic pain - cont methadone 2.5 mg twice a day and morphine 2 mg IV every 3 hours when necessary. 6. Oral thrush, and odynophagia with dysphagia - much improved -Pured diet - on nystatin and magic mouth wash. Status post course of Diflucan per ID. lidocaine swish and spit prior to taking by mouth meds. - GI input appreciated. S/p EGD 07/13 showing mild gastritis in the antrum and distal esophagitis - biopsies were negative for CMV/HSV, did show acute and chronic esophagitis, negative for H. pylori 7. Pancytopenia, CML - Heme/onc following. - Gleevec per oncology - No anti-coagulation due to pancytopenia. HIT negative. -Follow CBC 8. Acute kidney injury, Chronic kidney disease stage 3-4 - Creatinine is much improved and stable. Nephrology is following. -s/p diuresis. -ff BMP. 10. Hypernatremia -resolved. 11. Chronic systolic congestive heart failure - Echo from this admission shows ejection fraction 45-50% -monitor for any fluid overload, monitor I/O. -start PO lasix if BP increases (currently running low) -unable to start BB due to hypotension 12. Buttock and leg wounds: wound care following and has made recs, appreciate assistance 13. History of ventricular tachycardia status post AICD. Continue amiodarone. 14. Superficial venous thrombosis of left cephalic vein. Not anticoagulation candidate due to GI bleed and thrombocytopenia. 15. Pancreatic cyst -Discussed previously with GI Dr. Shore, patient's and son. They prefer to avoid any aggressive pursue all of the pancreatic cysts. They prefer to follow-up with GI as outpatient. CA-19-9 and CEA are not elevated. 16. constipation: Fleet enema ordered. Patient has several stool softeners and Laxatives which he has been declining. Constipation likely related to opiate use. DVT px - SCDs. No anti-coagulation due to thrombocytopenia, hematology recommendations. PT/OT following DO NOT RESUSCITATE status Palliative care following. Family declined hospice at this time. Discharge Planning Discharge pending patient to have a bowel movement. Problem Qualifiers (1) Diverticulosis: (2) Acute respiratory failure: Qualified Codes: J96.02 - Acute respiratory failure with hypercapnia (3) Diabetes mellitus: Qualified Codes: E11.8 - Type 2 diabetes mellitus with unspecified complications (4) Pneumonia: Jaquan Aguirre MD Jul 29, 2017 14:53
--- NOTE | 2017-07-29 16:04 | HHI.DS ---
Discharge Summary Admission Date Jun 24, 2017 at 19:22 Discharge Date: Jul 29, 2017 Admitting Diagnosis AMS/SEPSIS/hypotension (1) Diverticulosis ICD Code: K57.90 - Diverticulosis of intestine, part unspecified, without perforation or abscess without bleeding (2) ALEJANDRA (obstructive sleep apnea) ICD Code: G47.33 - Obstructive sleep apnea (adult) (pediatric) Status: Chronic (3) Acute respiratory failure ICD Code: J96.00 - Acute respiratory failure, unspecified whether with hypoxia or hypercapnia (4) Acute kidney injury ICD Code: N17.9 - Acute kidney failure, unspecified Status: Acute (5) Thrombocytopenia ICD Code: D69.6 - Thrombocytopenia, unspecified Status: Acute (6) Macrocytic anemia ICD Code: D53.9 - Nutritional anemia, unspecified Status: Chronic (7) Diabetes mellitus ICD Code: E11.9 - Type 2 diabetes mellitus without complications (8) Chronic systolic heart failure ICD Code: I50.22 - Chronic systolic (congestive) heart failure Status: Chronic (9) Sepsis ICD Code: A41.9 - Sepsis, unspecified organism Status: Acute (10) GI bleed ICD Code: K92.2 - Gastrointestinal hemorrhage, unspecified Status: Acute (11) Bacteremia due to Klebsiella pneumoniae ICD Code: R78.81 - Bacteremia Status: Acute (12) Ileus ICD Code: K56.7 - Ileus, unspecified Status: Resolved (13) Candidiasis of mouth and esophagus ICD Code: B37.81 - Candidal esophagitis; B37.0 - Candidal stomatitis Status: Acute (14) Pneumonia ICD Code: J18.9 - Pneumonia, unspecified organism Status: Acute (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, BCR/ABL-positive, not having achieved remission Status: Chronic (16) Pancytopenia ICD Code: D61.818 - Other pancytopenia Status: Chronic (17) COPD (chronic obstructive pulmonary disease) ICD Code: J44.9 - Chronic obstructive pulmonary disease, unspecified Status: Chronic (18) Acute renal failure ICD Code: N17.9 - Acute kidney failure, unspecified Status: Acute (19) Iron deficiency anemia ICD Code: D50.9 - Iron deficiency anemia, unspecified Status: Acute (20) AICD (automatic cardioverter/defibrillator) present ICD Code: Z95.810 - Presence of automatic (implantable) cardiac defibrillator Status: Acute (21) Anemia associated with acute blood loss ICD Code: D62 - Acute posthemorrhagic anemia Status: Acute (22) Cardiomyopathy ICD Code: I42.9 - Cardiomyopathy, unspecified Status: Chronic (23) Left bundle branch block ICD Code: I44.7 - Left bundle-branch block, unspecified Status: Chronic (24) Paroxysmal ventricular tachycardia ICD Code: I47.2 - Ventricular tachycardia Status: Resolved (25) Pancreatic cyst ICD Code: K86.2 - Cyst of pancreas (26) CKD (chronic kidney disease), stage III ICD Code: N18.3 - Chronic kidney disease, stage 3 (moderate) Status: Chronic (27) Dysphagia ICD Code: R13.10 - Dysphagia, unspecified Procedures Echo 06/26/2017 Mildly dilated left ventricle. The left ventricular systolic function is mildly reduced with an estimated ejection fraction in the range of 45- 50%. Wall thickness is normal. A pacemaker wire is noted. There is a pacemaker wire present in the right atrial cavity. Itnpx-hq-srny mitral valve regurgitation. There is trace tricuspid valve regurgitation. Brief History - From Admission This is an 82-year-old male. Date of admission 06/24/2017. Past medical history includes CML, COPD, coronary disease, chronic systolic heart failure ejection fraction 15-20%, history of AAA, chronic kidney disease history be, ALEJANDRA, is hiatal hernia, dyslipidemia. See past medical history. Patient presented to [address] [facility] with abdominal pain.. Patient has had subacute has right upper and lower quadrant pain that radiates to his lower back. Since June 05. Today the patient also complains of shortness of breath, diffuse abdominal pain, and one episode of vomiting. Pain is sharp and rated 10/10. Earlier today he was noted to be hypotensive during home health visit. states that he has been drinking lots of fluids but declines solid food. Home health nurse called for [facility] transport to ED. is noted be hypotensive and has received 4 L normal saline today. Lactate essentially normal. Of note patient was seen on 06/22. He was give was given morphine, Toradol, and Zofran in the ED. Abnormal laboratories including elevated CPK 2600. Creatinine is currently 4.2 which is above baseline. He has been not drinking well. CT and is/pelvis revealed diverticulosis, edematous gallbladder with some stones. HIDA scan has been ordered. Central is placed to hypotension. He has received vancomycin and piperacillin/tazobactam the ED. CBC/BMP: 07/29/17 0645 07/28/17 0450 Significant Findings Laboratory Tests Test 07/27/17 04:35 07/28/17 04:50 07/29/17 06:45 Red Blood Count 2.45 MIL/MM3 (4.50-5.90) 3.40 MIL/MM3 (4.50-5.90) 3.62 MIL/MM3 (4.50-5.90) Hemoglobin 7.5 GM/DL (13.0-17.0) 10.6 GM/DL (13.0-17.0) 11.0 GM/DL (13.0-17.0) Hematocrit 22.4 % (39.0-51.0) 30.5 % (39.0-51.0) 32.3 % (39.0-51.0) Red Cell Distribution Width 18.3 % (11.6-17.2) 17.3 % (11.6-17.2) Platelet Count 71 TH/MM3 (150-450) 79 TH/MM3 (150-450) 90 TH/MM3 (150-450) Lymphocytes (%) (Auto) 55.8 % (9.0-44.0) 53.7 % (9.0-44.0) 63.0 % (9.0-44.0) Band Neutrophils % 7 % (0-6) Lymphocytes % 66 % (9-44) 73 % (9-44) 61 % (9-44) Platelet Estimate LOW (NORMAL) LOW (NORMAL) LOW (NORMAL) Blood Urea Nitrogen 20 MG/DL (7-18) 20 MG/DL (7-18) Creatinine 1.52 MG/DL (0.60-1.30) 1.47 MG/DL (0.60-1.30) Random Glucose 120 MG/DL (74-106) Total Protein 4.0 GM/DL (6.4-8.2) 4.5 GM/DL (6.4-8.2) Calcium Level 6.6 MG/DL (8.5-10.1) 6.9 MG/DL (8.5-10.1) Carbon Dioxide Level 34.2 MEQ/L (21.0-32.0) 32.7 MEQ/L (21.0-32.0) Anion Gap 3 MEQ/L (5-15) 4 MEQ/L (5-15) Estimat Glomerular Filtration Rate 44 ML/MIN (>89) 46 ML/MIN (>89) Protein Corrected Calcium 8.3 MG/DL (8.5-10.1) 8.3 MG/DL (8.5-10.1) Ovalocytes 1+ (NORMAL) Lymphocytes # (Auto) 6.9 TH/MM3 (1.0-4.8) PE at Discharge GENERAL: pleasant somewhat chronically ill appearing elderly obese male patient. SKIN: Warm and dry. Multiple tattoos on extremities. HEAD: Normocephalic. EYES: No scleral icterus. No injection or drainage. NECK: Supple, trachea midline. No JVD or lymphadenopathy. CARDIOVASCULAR: Regular rate and rhythm without murmurs, gallops, or rubs. RESPIRATORY: Breath sounds equal bilaterally. No accessory muscle use. CTAB. GASTROINTESTINAL: Abdomen soft, non-tender, nondistended. EXTREMITIES: No pedal edema. 1+ edema bilateral hands and forearms. NEUROLOGICAL: Awake, alert, and oriented x 3. Non-focal. Pt Condition on Discharge: Stable Discharge Disposition: Discharge to SNF Discharge Instructions DIET: Follow Instructions for: Heart Healthy Diet Activities you can perform: See Additionl Instruction Other Activity Instructions: as per PT instruction Out of bed with assistance only Jaquan Aguirre MD Jul 29, 2017 16:04
--- NOTE | 2017-07-29 16:18 | HHI.NPPN ---
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 I was called to see the patient because of elevated BUN and creatinine. Additional Remarks Patient is more alert, no SOB, not in distress, clinically same. Objective Data Data Vital Signs Date Time Temp Pulse Resp B/P (MAP) Pulse Ox O2 Delivery O2 Flow Rate FiO2 07/29/17 11:46 97.9 88 18 104/65 (78) 99 07/29/17 09:00 92 Nasal Cannula 3.00 07/29/17 07:59 98.3 92 18 134/79 (97) 98 07/29/17 07:45 Nasal Cannula 3.00 07/29/17 07:00 94 07/29/17 04:00 93 07/29/17 04:00 97.6 88 20 97/59 (72) 98 07/29/17 00:00 86 07/29/17 00:00 98.3 91 20 129/71 (90) 98 07/28/17 20:00 98.7 90 20 115/68 (84) 95 07/28/17 20:00 92 07/28/17 19:11 Nasal Cannula 2.00 21 07/28/17 17:05 98.7 84 18 124/80 (95) 99 -: 07/29/17 0645 07/28/17 0450 Physical Exam General Appearance: No Acute Distress, Comfortable Eyes Eye Exam: Pupils Equal Throat Throat Exam: Oral Mucosa [place] & Moist Neck Neck Exam: Neck Supple Pulmonary Resp Exam: Breath Sounds Equal, No Distress, Rhonchi, Sputum, Decreased Bases Cardiology CV Exam: Regular, Normal Sinus Rhythm Gastrointestinal/Abdomen GI Exam: Soft, Non-Tender, Bowel Sounds Present Extremeties Extremities Exam: Moderate Edema, Pitting Edema, Dependent Edema Neurologic Neuro Remarks Sleepy but arousable. Psychiatric Psych Exam: Appropriate Responses Assessment/Plan Assessment Summary: LEESA/Acute Renal Failure, Hypertension, CKD Stage IV Problem List: (1) COPD (chronic obstructive pulmonary disease) ICD Codes: J44.9 - Chronic obstructive pulmonary disease, unspecified Status: Chronic (2) Bronchitis ICD Codes: J40 - Bronchitis, not specified as acute or chronic Status: Acute (3) HTN (hypertension) ICD Codes: I10 - Essential (primary) hypertension Status: Chronic (4) Diabetes mellitus ICD Codes: E11.9 - Type 2 diabetes mellitus without complications (5) Acute respiratory failure ICD Codes: J96.00 - Acute respiratory failure, unspecified whether with hypoxia or hypercapnia (6) Severe sepsis ICD Codes: A41.9 - Sepsis, unspecified organism; R65.20 - Severe sepsis without septic shock Status: Acute (7) Acute kidney injury ICD Codes: N17.9 - Acute kidney failure, unspecified Status: Acute Plan Patient has been non oliguric. Has Chronic kidney disease, possibly stage 3- 4. Hematology following hx of CML and Pancytopenia ID is following. Lasix is on hold. Results of EGD and Barium swallow noted. Repeat Colonoscopy done, results noted. Better to get MRA and avoid Contrast if possible. Creatinine is 1.4-1.5 at his baseline. Hold Lasix for now. Problem Qualifiers (1) Diabetes mellitus: Qualified Codes: E11.8 - Type 2 diabetes mellitus with unspecified complications (2) Acute respiratory failure: Qualified Codes: J96.02 - Acute respiratory failure with hypercapnia Bismark Woods MD Jul 29, 2017 16:17
--- NOTE | 2017-08-05 10:33 | PQ ---
Physician Query Response Document PATIENT: RONA LEO : 1935 ADMIT DATE: 06/24/2017 7:22 PM DISCH DATE: 07/29/2017 5:36 PM RESPONDING PROVIDER #: [email or web address] QUERY TEXT: Clarification of Clinical Diagnostic Findings Please clarify documentation or clinical relevance for the clinical / diagnostic findings or whether those are insignificant or unable to be further specified. A) WAS SEPSIS on admission 1) ruled in 2) ruled out B) DID THIS PATIENT HAVE SEPSIS ON 07-16 ? 1) ruled in 2) ruled out The patient's Clinical Indicators include: Please clarify conflicting/confusing Sepsis documentation Admitting diagnosis "severe sepsis". This diagnosis is followed by I.D. documentation of "sepsis rul ed out" Documentation of Dr. Victoria 07-05 "sepsis has been ruled out". Documentation of Dr. Linares documents "sepsis" on 07-16. Please review the QUESTIONS below and answer to the best of your ability Query created by: Jae Mcdaniel on 07/30/2017 12:43 PM RESPONSE TEXT: Provider disagreed with this CDI query. Please Query the physicians that saw the patient on that day Electronically signed by: Jaquan Jaime MD 08/05/2017 10:29 AM
== END 2017-07-29 17:36 | DRG 388 ==
LOC: NEPE 14:56 → NEDA 19:22 → HIMN 22:00 → N04B 07-01 23:35 → HCIN 07-07 18:39
PROVIDERS: ADMIT Hospitalist; ATTEND Hospitalist
PROC: 0T9B70Z Drainage of Bladder with Drainage Device, Via Natural or Artificial Opening (ICD-10-PCS; principal; 2017-06-24)
PROC: 05HM33Z Insertion of Infusion Device into Right Internal Jugular Vein, Percutaneous Approach (ICD-10-PCS; 2017-06-24)
PROC: 30233N1 Transfusion of Nonautologous Red Blood Cells into Peripheral Vein, Percutaneous Approach (ICD-10-PCS; 2017-07-05)
PROC: 0DB38ZX Excision of Lower Esophagus, Via Natural or Artificial Opening Endoscopic, Diagnostic (ICD-10-PCS; 2017-07-13)
PROC: 0DB68ZX Excision of Stomach, Via Natural or Artificial Opening Endoscopic, Diagnostic (ICD-10-PCS; 2017-07-13)
PROC: 0DJD8ZZ Inspection of Lower Intestinal Tract, Via Natural or Artificial Opening Endoscopic (ICD-10-PCS; 2017-07-14)
PROC: 05HM33Z Insertion of Infusion Device into Right Internal Jugular Vein, Percutaneous Approach (ICD-10-PCS; 2017-07-19)
PROC: 0DB68ZX Excision of Stomach, Via Natural or Artificial Opening Endoscopic, Diagnostic (ICD-10-PCS; 2017-07-21)
PROC: 0DJ08ZZ Inspection of Upper Intestinal Tract, Via Natural or Artificial Opening Endoscopic (ICD-10-PCS; 2017-07-23)
PROC: 0DBP8ZX Excision of Rectum, Via Natural or Artificial Opening Endoscopic, Diagnostic (ICD-10-PCS; 2017-07-24)
DX: K56.7 Ileus, unspecified (principal); N17.0 Acute kidney failure with tubular necrosis; J96.02 Acute respiratory failure with hypercapnia; J15.1 Pneumonia due to Pseudomonas; I50.23 Acute on chronic systolic (congestive) heart failure; A41.9 Sepsis, unspecified organism; D61.818 Other pancytopenia; N18.4 Chronic kidney disease, stage 4 (severe); I47.2 Ventricular tachycardia; E87.0 Hyperosmolality and hypernatremia; I13.0 Hypertensive heart and chronic kidney disease with heart failure and stage 1 through stage 4 chronic kidney disease, or unspecified chronic kidney disease; K63.3 Ulcer of intestine; B37.0 Candidal stomatitis; B37.81 Candidal esophagitis; C92.10 Chronic myeloid leukemia, BCR/ABL-positive, not having achieved remission; D62 Acute posthemorrhagic anemia; K92.1 Melena; I24.8 Other forms of acute ischemic heart disease; J98.11 Atelectasis; I42.9 Cardiomyopathy, unspecified; I82.612 Acute embolism and thrombosis of superficial veins of left upper extremity; K86.2 Cyst of pancreas; I44.7 Left bundle-branch block, unspecified; G43.909 Migraine, unspecified, not intractable, without status migrainosus; J43.9 Emphysema, unspecified; Z87.442 Personal history of urinary calculi; E11.649 Type 2 diabetes mellitus with hypoglycemia without coma; G47.33 Obstructive sleep apnea (adult) (pediatric); D53.9 Nutritional anemia, unspecified; K44.9 Diaphragmatic hernia without obstruction or gangrene; E78.5 Hyperlipidemia, unspecified; K80.80 Other cholelithiasis without obstruction; H91.91 Unspecified hearing loss, right ear; I71.4 Abdominal aortic aneurysm, without rupture; I25.10 Atherosclerotic heart disease of native coronary artery without angina pectoris; Z96.652 Presence of left artificial knee joint; Z95.810 Presence of automatic (implantable) cardiac defibrillator; Z79.4 Long term (current) use of insulin; Z82.5 Family history of asthma and other chronic lower respiratory diseases; Z80.0 Family history of malignant neoplasm of digestive organs; Z80.8 Family history of malignant neoplasm of other organs or systems; Z87.891 Personal history of nicotine dependence; E11.22 Type 2 diabetes mellitus with diabetic chronic kidney disease; E83.51 Hypocalcemia; F10.21 Alcohol dependence, in remission; K57.30 Diverticulosis of large intestine without perforation or abscess without bleeding; Z85.828 Personal history of other malignant neoplasm of skin; J40 Bronchitis, not specified as acute or chronic; I25.2 Old myocardial infarction; I08.1 Rheumatic disorders of both mitral and tricuspid valves; Z51.5 Encounter for palliative care; G89.29 Other chronic pain; M54.31 Sciatica, right side; Y95 Nosocomial condition; Z66 Do not resuscitate; K62.1 Rectal polyp; K29.70 Gastritis, unspecified, without bleeding; K21.0 Gastro-esophageal reflux disease with esophagitis; K64.4 Residual hemorrhoidal skin tags; K64.8 Other hemorrhoids; K14.0 Glossitis; D50.9 Iron deficiency anemia, unspecified; M16.11 Unilateral primary osteoarthritis, right hip; S91.309A Unspecified open wound, unspecified foot, initial encounter; S31.829A Unspecified open wound of left buttock, initial encounter; S31.819A Unspecified open wound of right buttock, initial encounter; S31.000A Unspecified open wound of lower back and pelvis without penetration into retroperitoneum, initial encounter; X58.XXXA Exposure to other specified factors, initial encounter; Y93.9 Activity, unspecified; Y92.9 Unspecified place or not applicable; Y99.9 Unspecified external cause status; Z79.891 Long term (current) use of opiate analgesic; Z86.79 Personal history of other diseases of the circulatory system; H26.9 Unspecified cataract
CPT/HCPCS: 36430; 36556; 36600; 51702; 71010; 74000; 74174; 74176; 74230; 76937; 78226; 78278; 80048; 80053; 81001; 82272; 82378; 82550; 82552; 82570; 82805; 82948; 83010; 83036; 83605; 83615; 83735; 83880; 84100; 84132; 84145; 84155; 84300; 84439; 84443; 84484; 85007; 85025; 85027; 85384; 85610; 85730; 86022; 86301; 86403; 86850; 86900; 86901; 86920; 87040; 87070; 87077; 87086; 87186; 87205; 87493; 87641; 88305; 88312; 93005; 93308; 93970; 94640; 94664; 96360; A9537; A9560; C9113; J1642; J1720; J1940; J1956; J2212; J2250; J2270; J2370; J2405; J2543; J2920; J3370; J3480; J7030; J7042; J7050; J7512; J7613; P9016; Q9963; Q9967

== ENCOUNTER 2017-08-13 11:45 | Inpatient (IN) | payer MEDICARE ==
[~2017-08-13] VITALS: Ht 177.8 cm; Wt 83.1 kg
[~2017-08-13 11:45] MED LIST changes: +FERR325T18 PO; -LOSA25TA PO; -LOVA20TA PO; +NOVOLOGP2 SQ; -OXYC1TAB63 PO; -PRED20 PO
[2017-08-13 11:56] VITALS: BP 92/59; PULSE 71; RESP 20; TEMP 98; O2SAT 96
[2017-08-13] MEDS ORDERED: DULC10SU3 RECTAL (12:26)
[2017-08-13] MEDS ORDERED: ASCO500T PO (12:26)
[2017-08-13] MEDS ORDERED: MULT1TAB46 (12:26)
[2017-08-13] MEDS ORDERED: PREPCRE RECTAL (12:26)
[2017-08-13] MEDS ORDERED: ENEMENE5 (12:26)
[2017-08-13] MEDS ORDERED: CITRSOL4 PO (12:26)
[2017-08-13] MEDS ORDERED: IPRASOL INH (12:26)
[2017-08-13] MEDS ORDERED: OXYC-395 PO (12:26)
[2017-08-13] MEDS ORDERED: ENOX40P SQ (12:26)
[2017-08-13] MEDS ORDERED: TYLE325T PO (12:26)
[2017-08-13] MEDS ORDERED: HUMALOG SQ (12:26)
[2017-08-13] MEDS ORDERED: NITR1CAP36 PO (12:26)
[2017-08-13] MEDS ORDERED: MILKSUS PO (12:26)
[2017-08-13] MEDS ORDERED: COUM5TAB PO (12:26)
[2017-08-13] MEDS ORDERED: ZINC220C3 PO (12:26)
[2017-08-13 12:46] VITALS: BP 96/52; PULSE 72; RESP 18; O2SAT 90
[2017-08-13 13:35] LABS: AUTOMATED NEUTROPHIL # 8.2 TH/MM3 (1.8-7.7); BASOPHIL # 0.1 TH/MM3 (0-0.2); BASOPHIL % 0.4 % (0.0-2.0); EOSINOPHIL % 0.1 % (0.0-4.0); HEMATOCRIT 28.7 % (39.0-51.0); HEMOGLOBIN 9.4 GM/DL (13.0-17.0); LYMPH % 42.1 % (9.0-44.0); LYMPHOCYTE # 6.6 TH/MM3 (1.0-4.8); MEAN CELL VOLUME 90.7 FL (80.0-100.0); MEAN CORPUSCULAR HEMOGLOBIN 29.8 PG (27.0-34.0); MEAN CORPUSCULAR HGB CONC 32.8 % (32.0-36.0); MEAN PLATELET VOLUME 7.5 FL (7.0-11.0); MONO % 5.5 % (0.0-8.0); MONOCYTE # 0.9 TH/MM3 (0-0.9); NEUT % 51.9 % (16.0-70.0); PLATELET COUNT 158 TH/MM3 (150-450); RED BLOOD COUNT 3.16 MIL/MM3 (4.50-5.90); RED CELL DISTRIBUTION WIDTH 16.9 % (11.6-17.2); WHITE BLOOD COUNT 15.7 TH/MM3 (4.0-11.0)
[2017-08-13 13:52] LABS: ALBUMIN 1.2 GM/DL (3.4-5.0); BICARBONATE 34.1 MEQ/L (21.0-32.0); CREATININE 1.9 MG/DL (0.60-1.30); TOTAL BILIRUBIN ADULT 0.6 MG/DL (0.2-1.0); TOTAL PROTEIN 5.2 GM/DL (6.4-8.2)
[2017-08-13 13:56] LABS: INTERNATIONAL NORMALIZED RATIO 1.4 RATIO; PROTHROMBIN TIME - PATIENT 14.5 SEC (9.8-11.6)
--- NOTE | 2017-08-13 15:03 | PD ---
HPI Chief Complaint: Edema Time Seen by Provider: 12:50 Travel History International Travel<30 days: No Contact w/Intl Traveler<30days: No Traveled to known affect area: No History of Present Illness HPI To chronically ill 82-year-old man, I [facility], sent to the ED after he was diagnosed with a DVT in his left lower extremity, and is being treated for GI bleed. He had a prolonged hospitalization just recently. He was discharged [facility] and [facility] a couple days ago. He developed while for a pretty swelling and he performed an ultrasound which were read as acute deep venous thrombosis in the deep femoral vein as well as in the popliteal vein, left. They reportedly gave him a dose of Lovenox and warfarin, and then patient was sent to the ED. Concern appears to be related to the fact that he was just treated for active GI bleed. 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 Headache/migraine COPD Gastroesophageal reflux disease Nephrolithiasis Diabetes mellitus type 2 Obstructive sleep apnea Chronic kidney disease stage IIIB AAA Diverticulosis Hiatal hernia Dyslipidemia Coronary artery disease Chronic systolic heart failure ejection fraction 15%, AICD Social History Alcohol Use: No Tobacco Use: No Allergies-Medications (Allergen,Severity, Reaction): Coded Allergies: No Known Allergies (Verified , 09/19/15) Reported Meds & Prescriptions Reported Meds & Active Scripts Active Methadone (Methadone HCl) 5 Mg Tab 2.5 Mg PO BID Senna Plus 8.6-50 mg (Sennosides-Docusate Sodium) 8.6 Mg-50 Mg Tab 1 Tab PO BID Proair Hfa 8.5 GM Inh (Albuterol Sulfate) 90 Mcg/Act Aer 2 Puff INH Q4-6H PRN 108 mcg/actuation Reported Zinc Sulfate 220 Mg (50 Mg Zinc) Cap 220 Mg PO DAILY Preparation H Topical (Moubbocah-Emeomotucjfwx-Hshaplzp Topical) 1-0.25-14.4-15 % Cre 1 Applic RECTAL QID PRN Nitrofurantoin Macrocrystal 100 Mg Cap 100 Mg PO QID Multi Vitamin Daily (Multiple Vitamin) 1 Tab Tab Milk of Magnesia Liq (Magnesium Hydroxide) 400 Mg/5 Ml Susp 30 Ml PO DAILY PRN Lovenox Inj (Enoxaparin Sodium) 40 Mg/0.4 Ml Syr 40 Mg SQ BID Humalog Inj (Insulin Human Lispro) 1,000 Unit/10 Ml Vial 5-25 Units SQ ACHS Max dose at bedtime:( )units; sugars < 70,(0)units; sugars 150-199,(5)units; sugars 200-249,(10)units; sugars 250-299,(15)units; sugars 300-349,(20)units; sugars more than 349,(25)units. Enema Disposable (Sodium Phosphates) 19 Gram-7 Gram/118 Ml Aimee Duoneb (Ipratropium-Albuterol Neb) 0.5-2.5 Mg/3 Ml Neb 1 Nebule INH Q6HR NEB Dulcolax Supp (Bisacodyl) 10 Mg Supp 10 Mg RECTAL DAILY PRN Coumadin (Warfarin) 5 Mg Tab 5 Mg PO DAILY Citroma Liq (Magnesium Citrate) 300 Ml Liq 300 Ml PO DIRECTED Oxycodone (Oxycodone HCl) 10 Mg Tab 10 Mg PO Q4H PRN Ascorbic Acid 500 Mg Tab 500 Mg PO Tylenol (Acetaminophen) 325 Mg Tab 650 Mg PO Q4H PRN Tylenol (Acetaminophen) 325 Mg Tab 650 Mg PO Q4H PRN Ferrous Sulfate 325 Mg (65 Mg Iron) Tablet 325 Mg PO BIDPC Amiodarone (Amiodarone HCl) 200 Mg Tab 200 Mg PO DAILY Coreg (Carvedilol) 3.125 Mg Tab 3.125 Mg PO BID Aspirin 325 Mg Tab 325 Mg PO DAILY Lasix (Furosemide) 40 Mg Tab 40 Mg PO DAILY Gleevec (Imatinib Mesylate) 100 Mg Tab 400 Mg PO DAILY Review of Systems ROS Limitations: Clinical Condition Physical Exam Narrative GENERAL: Chronically ill-appearing 82-year-old man. SKIN: Focused skin assessment warm/skin pale. She was ulcers on the coccyx and buttock. Wound on the ankle as well. HEAD: Atraumatic. Normocephalic. EYES: Pupils equal and round. No scleral icterus. No injection or drainage. ENT: No nasal bleeding or discharge. Mucous membranes pink and moist. NECK: Trachea midline. No JVD. CARDIOVASCULAR: Regular rate and rhythm. No murmur appreciated. RESPIRATORY: No accessory muscle use. Clear to auscultation. Breath sounds equal bilaterally. GASTROINTESTINAL: Abdomen soft, non-tender, nondistended. Hepatic and splenic margins not palpable. RECTAL: Light brown stools or rectal vault. Guaiac positive. MUSCULOSKELETAL: No obvious deformities. No clubbing. No cyanosis. No edema. NEUROLOGICAL: Awake and alert. No obvious cranial nerve deficits. Motor grossly within normal limits. Normal speech. PSYCHIATRIC: Appropriate mood and affect; insight and judgment normal. Data Data Last Documented VS Vital Signs Date Time Temp Pulse Resp B/P (MAP) Pulse Ox O2 Delivery O2 Flow Rate FiO2 08/13/17 15:35 72 18 92/52 (65) 96 Nasal Cannula 2.00 08/13/17 11:56 98.0 Orders Orders Complete Blood Count With Diff (08/13/17 12:53) Comprehensive Metabolic Panel (08/13/17 12:53) Act Partial Throm Time (Ptt) (08/13/17 12:53) Prothrombin Time / Inr (Pt) (08/13/17 12:53) Iv Access Insert/Monitor (08/13/17 12:53) Hydromorphone Pf Inj (Dilaudid Pf Inj) (08/13/17 15:15) Place In Observation (08/13/17 ) Vital Signs (Adult) Q4H (08/13/17 16:37) Activity Bed Rest (08/13/17 16:37) Sumo Wrestler / Telemetry .CONTINUOUS (08/13/17 16:37) Diet Heart Healthy (08/13/17 Dinner) Sodium Chloride 0.9% Flush (Ns Flush) (08/13/17 16:45) Sodium Chloride 0.9% Flush (Ns Flush) (08/13/17 21:00) Basic Metabolic Panel (Bmp) (08/14/17 06:00) Complete Blood Count With Diff (08/14/17 06:00) Case Management Consult (08/13/17 16:37) Naloxone Inj (Narcan Inj) (08/13/17 16:45) Consult Gastroenterology (08/13/17 ) Admit Order (Ed Use Only) (08/13/17 ) Labs Laboratory Tests Test 08/13/17 13:00 White Blood Count 15.7 TH/MM3 Red Blood Count 3.16 MIL/MM3 Hemoglobin 9.4 GM/DL Hematocrit 28.7 % Mean Corpuscular Volume 90.7 FL Mean Corpuscular Hemoglobin 29.8 PG Mean Corpuscular Hemoglobin Concent 32.8 % Red Cell Distribution Width 16.9 % Platelet Count 158 TH/MM3 Mean Platelet Volume 7.5 FL Neutrophils (%) (Auto) 51.9 % Lymphocytes (%) (Auto) 42.1 % Monocytes (%) (Auto) 5.5 % Eosinophils (%) (Auto) 0.1 % Basophils (%) (Auto) 0.4 % Neutrophils # (Auto) 8.2 TH/MM3 Lymphocytes # (Auto) 6.6 TH/MM3 Monocytes # (Auto) 0.9 TH/MM3 Eosinophils # (Auto) 0.0 TH/MM3 Basophils # (Auto) 0.1 TH/MM3 CBC Comment AUTO DIFF Differential Total Cells Counted 100 Neutrophils % (Manual) 22 % Band Neutrophils % 8 % Lymphocytes % 59 % Monocytes % 2 % Eosinophils % 1 % Neutrophils # (Manual) 4.7 TH/MM3 Differential Comment FINAL DIFF MANUAL Atypical Lymphocytes 8 % Smudge Cells PRESENT Toxic Granulation 1+ Platelet Estimate NORMAL Platelet Morphology Comment NORMAL Ovalocytes 1+ Prothrombin Time 14.5 SEC Prothromb Time International Ratio 1.4 RATIO Activated Partial Thromboplast Time 33.9 SEC Blood Urea Nitrogen 38 MG/DL Creatinine 1.90 MG/DL Random Glucose 113 MG/DL Total Protein 5.2 GM/DL Albumin 1.2 GM/DL Calcium Level 7.0 MG/DL Alkaline Phosphatase 123 U/L Aspartate Amino Transf (AST/SGOT) 51 U/L Alanine Aminotransferase (ALT/SGPT) 35 U/L Total Bilirubin 0.6 MG/DL Sodium Level 142 MEQ/L Potassium Level 3.2 MEQ/L Chloride Level 102 MEQ/L Carbon Dioxide Level 34.1 MEQ/L Anion Gap 6 MEQ/L Estimat Glomerular Filtration Rate 34 ML/MIN Protein Corrected Calcium 8.0 MG/DL [facility] Medical Decision Making Medical Screen Exam Complete: Yes Emergency Medical Condition: Yes Interpretation(s) LABS: CBC remarkable for white count 15.7 thousand, hemoglobin 9.4, platelet 158. CMP remarkable for elevated BUN/creatinine INR 1.4 Differential Diagnosis DVT, GI bleed, anemia, other Narrative Course Medical decision making the 82-year-old man, recent active GI bleed, still guaiac positive, new diagnosis DVT, when he anticoagulation versus DVT filter. We'll initiate a monitor setting of the hospital. Plan on admission. Diagnosis Primary Impression: DVT (deep venous thrombosis) Additional Impression: GI bleed Flip Candelaria MD Aug 13, 2017 15:03
[2017-08-13] MEDS ORDERED: HYDROmorphone HCL PF 2 MG/ML VIAL IVS ONE (15:15)
[2017-08-13 15:17] LABS: ATYPICAL LYMPHOCYTES 8 % (0-0); BANDS 8 % (0-6); LYMPHOCYTES 59 % (9-44); MONOCYTES 2 % (0-8); NEUTROPHIL # MANUAL DIFF 4.7 TH/MM3 (1.8-7.7); POLYS (SEG NEUTROPHILS) 22 % (16-70)
[2017-08-13 15:18] LABS: SMUDGE CELLS PRESENT PRESENT
[2017-08-13 15:20] LABS: OVALOCYTES 1+ (NORMAL); TOXIC GRANULATION 1+ (NORMAL)
[2017-08-13 15:35] VITALS: BP 92/52; PULSE 72; RESP 18; O2SAT 96
[2017-08-13] MEDS ORDERED: SODIUM CHLORIDE 0.9% FLUSH 10 ML FLUSH IV FLUSH PRN (16:45)
[2017-08-13] MEDS ORDERED: NALOXONE HCL 0.4 MG/ML AMP IV PUSH PRN (16:45)
[2017-08-13 16:57] VITALS: BP 133/70; PULSE 78; RESP 20; O2SAT 95
[2017-08-13] MEDS: SODIUM CHLORIDE 0.9% FLUSH 10 ML FLUSH IV FLUSH SCH (19:49)
[2017-08-13 20:00] VITALS: BP 76/55; PULSE 84; RESP 16; TEMP 96.8; O2SAT 80
--- NOTE | 2017-08-13 20:27 | HHI.HP ---
[facility] Unknown Admission Diagnosis DVT, GI bleed Diagnoses: Travel History International Travel<30 Days: No Contact w/Intl Traveler <30 Da: No Traveled to Known Affected Are: No History of Present Illness History from patient, at the bedside, and ER physician sent by [facility] for positive doppler studies had vomiting x 2 a few days somewhat black in color vomitus no black stool - but was told he had blood in stool c/o of right foot pain - started 06/05/27 - he slipped on water at [employer] then. did not go to hospital then but was admitted here from 06/24/17 to 07/29/17 for sepsis/ GI bleed denies other symptoms, limited historian Review of Systems Except as stated in HPI: all other systems reviewed are Neg Past Family Social History Past Medical History HTN DM s/p ppm CAD s/p IN COPD on home oxygen CKD CML thrombocytopenia Past Surgical History lung biopsy ppm heart cath knee operation nose sx ears sx Allergies: Coded Allergies: No Known Allergies (Verified , 09/19/15) Family History lost 4 children- one from [place] at 26 yo, another one from meningitis at 4 months old, 2 from cancer in their 50s --- but all of them were premature babies has 8 children total with the patient- 4 living, 4 as above Social History used to smoke , quit 1993 used to drink etoh heavily, quit in 1993 no drugs live at [facility], Physical Exam Vital Signs Vital Signs Date Time Temp Pulse Resp B/P (MAP) Pulse Ox O2 Delivery O2 Flow Rate FiO2 08/13/17 17:07 08/13/17 16:57 78 20 133/70 (91) 95 Nasal Cannula 2.00 08/13/17 15:35 72 18 92/52 (65) 96 Nasal Cannula 2.00 08/13/17 12:46 72 18 96/52 (67) 90 Nasal Cannula 3.00 08/13/17 12:00 72 20 96 Nasal Cannula 3.00 08/13/17 11:56 98.0 71 20 92/59 (70) 96 Physical Exam GENERAL: This is a elderly gentleman, looks chronically ill. Complaining of pain in his right lower extremity starting from the knee all the way down to the foot. SKIN: Pallor present. Dry senile skin. Multiple superficial petechiae HEAD: Atraumatic. Normocephalic. No temporal or scalp tenderness. EYES: No scleral icterus. No injection or drainage. ENT: Nose without bleeding, purulent drainage or septal hematoma Airway patent. NECK: Trachea midline. No JVD. Supple, nontender, no meningeal signs. CARDIOVASCULAR: Regular rate and rhythm without murmurs, gallops, or rubs. RESPIRATORY: Clear to auscultation. Breath sounds equal bilaterally. No wheezes , rales, or rhonchi. GASTROINTESTINAL: Abdomen soft, non-tender, nondistended. No guarding. MUSCULOSKELETAL: Extremities without clubbing, cyanosis, or edema. Significant pain of right lower extremity from the knee down to foot. Right ankle in dressing from pressure ulcer. Left calf with palpable veins though nontender. NEUROLOGICAL: Awake and alert. Looks extremely weak. But grossly intact motor and sensation. Normal speech. Laboratory Laboratory Tests Test 08/13/17 13:00 White Blood Count 15.7 Red Blood Count 3.16 Hemoglobin 9.4 Hematocrit 28.7 Mean Corpuscular Volume 90.7 Mean Corpuscular Hemoglobin 29.8 Mean Corpuscular Hemoglobin Concent 32.8 Red Cell Distribution Width 16.9 Platelet Count 158 Mean Platelet Volume 7.5 Neutrophils (%) (Auto) 51.9 Lymphocytes (%) (Auto) 42.1 Monocytes (%) (Auto) 5.5 Eosinophils (%) (Auto) 0.1 Basophils (%) (Auto) 0.4 Neutrophils # (Auto) 8.2 Lymphocytes # (Auto) 6.6 Monocytes # (Auto) 0.9 Eosinophils # (Auto) 0.0 Basophils # (Auto) 0.1 CBC Comment AUTO DIFF Differential Total Cells Counted 100 Neutrophils % (Manual) 22 Band Neutrophils % 8 Lymphocytes % 59 Monocytes % 2 Eosinophils % 1 Neutrophils # (Manual) 4.7 Differential Comment FINAL DIFF MANUAL Atypical Lymphocytes 8 Smudge Cells PRESENT Toxic Granulation 1+ Platelet Estimate NORMAL Platelet Morphology Comment NORMAL Ovalocytes 1+ Prothrombin Time 14.5 Prothromb Time International Ratio 1.4 Activated Partial Thromboplast Time 33.9 Blood Urea Nitrogen 38 Creatinine 1.90 Random Glucose 113 Total Protein 5.2 Albumin 1.2 Calcium Level 7.0 Alkaline Phosphatase 123 Aspartate Amino Transf (AST/SGOT) 51 Alanine Aminotransferase (ALT/SGPT) 35 Total Bilirubin 0.6 Sodium Level 142 Potassium Level 3.2 Chloride Level 102 Carbon Dioxide Level 34.1 Anion Gap 6 Estimat Glomerular Filtration Rate 34 Protein Corrected Calcium 8.0 Result Diagram: 08/13/17 1300 08/13/17 1300 Imaging Ultrasound done at the nursing facility report reviewed. Left lower extremity deep femoral vein and popliteal vein thrombosis. Caprini VTE Risk Assessment Caprini VTE Risk Assessment: Mod/High Risk (score >= 2) Caprini Risk Assessment Model Point Value = 1 Point Value = 2 Point Value = 3 Point Value = 5 Age 41-60 Minor surgery BMI > 25 kg/m2 Swollen legs Varicose veins or History of unexplained or recurrent spontaneous Oral contraceptives or hormone replacement Sepsis (< 1 month) Serious lung disease, including pneumonia (< 1 month) Abnormal pulmonary function Acute myocardial infarction Congestive heart failure (< 1 month) History of inflammatory bowel disease Medical patient at bed rest Age 61-74 Arthroscopic surgery Major open surgery (> 45 min) Laparoscopic surgery (> 45 min) Malignancy Confined to bed (> 72 hours) Immobilizing plaster cast Central venous access Age >= 75 History of VTE Family history of VTE Factor V Leiden Prothrombin [id number] Lupus anticoagulant Anticardiolipin antibodies Elevated serum homocysteine Heparin-induced thrombocytopenia Other congenital or acquired thrombophilia Stroke (< 1 month) Elective arthroplasty Hip, pelvis, or leg fracture Acute spinal cord injury (< 1 month) Prophylaxis Regimen Total Risk Factor Score Risk Level Prophylaxis Regimen 0-1 Low Early ambulation 2 Moderate Order ONE of the following: *Sequential Compression Device (SCD) *Heparin 5000 units SQ BID 3-4 Higher Order ONE of the following medications: *Heparin 5000 units SQ TID *Enoxaparin/Lovenox 40 mg SQ daily (WT < 150 kg, CrCl > 30 mL/min) *Enoxaparin/Lovenox 30 mg SQ daily (WT < 150 kg, CrCl > 10-29 mL/min) *Enoxaparin/Lovenox 30 mg SQ BID (WT < 150 kg, CrCl > 30 mL/min) AND/OR *Sequential Compression Device (SCD) 5 or more Highest Order ONE of the following medications: *Heparin 5000 units SQ TID (Preferred with Epidurals) *Enoxaparin/Lovenox 40 mg SQ daily (WT < 150 kg, CrCl > 30 mL/min) *Enoxaparin/Lovenox 30 mg SQ daily (WT < 150 kg, CrCl > 10-29 mL/min) *Enoxaparin/Lovenox 30 mg SQ BID (WT < 150 kg, CrCl > 30 mL/min) AND *Sequential Compression Device (SCD) Assessment and Plan Assessment and Plan Impression: Left lower extremity deep femoral vein and popliteal vein thrombosis Recent GI bleed Positive guaiac in ER with patient's report of 2 times episode of coffee-ground emesis and possible melena Recent history of thrombocytopenia in last admission. Discharged on July. CML. On Gleevec. Was on hold initially due to thrombocytopenia. But restarted back at the rehabilitation since platelets improved. Hypokalemia Hypocalcemia Right lower extremity pain since June 05, 2017 from a fall. HTN DM s/p ppm/AICD CAD s/p IN CHF latest echo June 26, 2017 reviewed. Systolic. COPD on home oxygen CKD CML thrombocytopenia Plan: At this point, I would not anticoagulate patient yet since he has signs and symptoms suggestive of GI bleed. Moreover, patient did receive Lovenox and 1 times dose of Coumadin at the [facility]. We'll monitor hemoglobin hematocrit serially. Type and screen. Nothing by mouth. GI consulted again for further opinion as to workup. Start patient on pantoprazole IV drip. Would consult hematology regarding anticoagulation. Obviously at this point it is contraindicated. Question whether patient should receive IVC filter. If hematology agrees, to please order for IVC filter by IR. Would also address whether to start back on Gleevec during this admission with hematology. For now I would hold it. Replace electrolytes. Regarding his severe right lower extremity pain, this happened after May fall. Review of medical records reveal patient did have hip and pelvis x-ray although no other x-rays of right lower extremity. Therefore once patient is medically stable in terms of DVT, i.e. while on anticoagulation or IVC filter, then to please do CT of right tibia fibular and foot to find out etiology of his severe pain and immobility leading him to go to rehabilitation. He is currently not able to participate in rehabilitation and mostly bedbound because of this pain. At present, I would not obtain further imaging studies/moving patient from one place to another while patient is not fully protected from dislodgment of this new left lower extremity DVT. Hold antihypertensives. Hold long-acting insulin and oral hypoglycemics. We'll monitor fingersticks. Start patient on D5 half normal saline at 84 cc per hour. Watch for fluid overload. Code Status No code DNR. discussed with patient and at the bedside. Palliative care notes from previous admission reviewed as well. Patient was DNR. correction records also reveals patient is DNR. Therefore orders written Discussed Condition With Patient, ER physician, nursing staff Physician Certification 2 Midnight Certification Type: Admission for Inpatient Services Order for Inpatient Services The services are ordered in accordance with Medicare regulations or non- Medicare payer requirements, as applicable. In the case of services not specified as inpatient-only, they are appropriately provided as inpatient services in accordance with the 2-midnight benchmark. Estimated LOS (days): 4 days is the estimated time the patient will need to remain in the hospital, assuming treatment plan goals are met and no additional complications. Post-Hospital Plan: SNF Kateryna Reyes MD Aug 13, 2017 20:27
[2017-08-13] MEDS ORDERED: HYDROmorphone HCL PF 2 MG/ML VIAL IV PUSH PRN (20:30)
[2017-08-13] MEDS ORDERED: POTASSIUM CHLORIDE 10 MEQ CAP PO ONE (20:30)
[2017-08-13] MEDS ORDERED: GLUCAGON 1 MG/ML VIAL OTHER PRN (20:45)
[2017-08-13] MEDS ORDERED: DEXTROSE 50% IN WATER 50 ML VIAL(D50) IV PUSH PRN (20:45)
[2017-08-13] MEDS ORDERED: CALCIUM GLUCONATE INJ 1 GM in DEXTROSE 5% IN WATER 100ML INJ 100 ML IV ONE ×2 (21:00)
[2017-08-13] MEDS ORDERED: PANTOPRAZOLE INJ 80 MG in SODIUM CHLORIDE 0.9% INJ 35 ML IV ONE (21:32)
[2017-08-13] MEDS: DEXT 5%-NACL 0.9% 1000 ML INJ 1,000 ML IV SCH (22:45)
[2017-08-13] MEDS: PANTOPRAZOLE INJ 80 MG in SODIUM CHLORIDE 0.9% INJ 100 ML IV SCH (23:28)
[2017-08-14] VITALS (8 sets, daily range): BP systolic 90–106; BP diastolic 48–63; PULSE 74–92; RESP 16–20; TEMP 96.2–98.5; O2SAT 82–93
[2017-08-14] MEDS: PANTOPRAZOLE INJ 80 MG in SODIUM CHLORIDE 0.9% INJ 100 ML IV SCH ×2 (08:14→21:33)
[2017-08-14] MEDS: SODIUM CHLORIDE 0.9% FLUSH 10 ML FLUSH IV FLUSH SCH ×2 (08:15→21:00)
[2017-08-14 08:45] LABS: AUTOMATED NEUTROPHIL # 7.2 TH/MM3 (1.8-7.7); BASOPHIL % 0.3 % (0.0-2.0); HEMATOCRIT 27.4 % (39.0-51.0); LYMPH % 44.7 % (9.0-44.0); LYMPHOCYTE # 6.6 TH/MM3 (1.0-4.8); MEAN CELL VOLUME 91.4 FL (80.0-100.0); MEAN CORPUSCULAR HEMOGLOBIN 30.2 PG (27.0-34.0); MEAN PLATELET VOLUME 7.6 FL (7.0-11.0); MONO % 5.6 % (0.0-8.0); MONOCYTE # 0.8 TH/MM3 (0-0.9); NEUT % 49.4 % (16.0-70.0); PLATELET COUNT 163 TH/MM3 (150-450); RED CELL DISTRIBUTION WIDTH 16.8 % (11.6-17.2); WHITE BLOOD COUNT 14.7 TH/MM3 (4.0-11.0)
[2017-08-14 09:05] LABS: BICARBONATE 31.4 MEQ/L (21.0-32.0); CALCIUM 6.9 MG/DL (8.5-10.1); CREATININE 2.05 MG/DL (0.60-1.30)
[2017-08-14 09:16] LABS: CALCIUM-PROTEIN CORRECTED 8.1 MG/DL (8.5-10.1); TOTAL PROTEIN 4.8 GM/DL (6.4-8.2)
--- NOTE | 2017-08-14 09:39 | HHI.PR ---
Subjective Remarks f/u for GI bleed and chronic right foot pain patient is a poor historian. patient main complaint is the right foot pain. He stated it has not improved and pain since May. d/w patient's nurse since he is a poor historian and she stated patient has not had any GI bleed and no BM. She stated when she saw him yesterday he had one BM and no blood noted. Patient denied any N/V or any other complaints. He does look very weak and fragile. no acute events. Objective Vitals Vital Signs Date Time Temp Pulse Resp B/P (MAP) Pulse Ox O2 Delivery O2 Flow Rate FiO2 08/14/17 08:27 90/58 (69) 08/14/17 04:13 96.2 92 16 98/54 (69) 92 08/14/17 00:32 97.6 77 16 96/62 (73) 92 08/13/17 20:00 96.8 84 16 76/55 (62) 80 08/13/17 17:07 08/13/17 16:57 78 20 133/70 (91) 95 Nasal Cannula 2.00 08/13/17 15:35 72 18 92/52 (65) 96 Nasal Cannula 2.00 08/13/17 12:46 72 18 96/52 (67) 90 Nasal Cannula 3.00 08/13/17 12:00 72 20 96 Nasal Cannula 3.00 08/13/17 11:56 98.0 71 20 92/59 (70) 96 I/O 08/13/17 08/13/17 08/13/17 08/14/17 08/14/17 08/14/17 07:00 15:00 23:00 07:00 15:00 23:00 Intake Total 639 ml Output Total 550 ml Balance 89 ml Intake IV Total 639 ml Output Urine Total 550 ml Result Diagram: 08/14/1782108/14/17821 Objective Remarks GENERAL: in NAD but looks chronically ill. SKIN: Sacral wounds noted with wound care nurse present. He also has some skin tears on his shoulder. Bilateral edema and and lower extremity edema HEAD: Normocephalic. EYES: No scleral icterus. No injection or drainage. NECK: Supple, trachea midline. No JVD or lymphadenopathy. CARDIOVASCULAR: Regular rate and rhythm without murmurs, gallops, or rubs. RESPIRATORY: Breath sounds equal bilaterally. No accessory muscle use. GASTROINTESTINAL: Abdomen soft, non-tender, nondistended. MUSCULOSKELETAL: Right foot with an eschar on heel. There is tenderness palpation. He seems to be sensitive to touch in this area. No erythema noted. Medications and IVs Current Medications Hydromorphone HCl (Dilaudid Pf Inj) 0.5 mg ONCE ONCE IVS Last administered on 08/13/17at 15:34; Start 08/13/17 at 15:15; Stop 08/13/17 at 15:16; Status DC Sodium Chloride (NS Flush) 2 ml UNSCH PRN IV FLUSH FLUSH AFTER USING IV ACCESS ; Start 08/13/17 at 16:45 Sodium Chloride (NS Flush) 2 ml BID IV FLUSH Last administered on 08/13/17at 19: 49; Start 08/13/17 at 21:00 Naloxone HCl (Narcan Inj) 0.4 mg UNSCH PRN IV PUSH SEE LABEL COMMENTS; Start at 16:45 Potassium Chloride (KCl) 40 meq ONCE ONCE PO Last administered on 08/13/17at 22: 45; Start 08/13/17 at 20:30; Stop 08/13/17 at 20:32; Status DC Calcium Gluconate 1 gm/Dextrose 110 ml @ 110 mls/hr ONCE ONCE IV Last administered on 08/13/17at 23:03; Start 08/13/17 at 21:00; Stop 08/13/17 at 21:59; Status DC Hydromorphone HCl (Dilaudid Pf Inj) 0.2 mg Q4H PRN IV PUSH pain >5 Last administered on 08/14/17at 10:51; Start 08/13/17 at 20:30 Pantoprazole Sodium 80 mg/ Sodium Chloride 35 ml @ 420 mls/hr Q5M ONCE IV Last administered on 08/13/17at 23:28; Start 08/13/17 at 21:32; Stop 08/13/17 at 21: 36; Status DC Pantoprazole Sodium 80 mg/ Sodium Chloride 100 ml @ 10 mls/hr Q10H IV Last administered on 08/14/17at 08:14; Start 08/13/17 at 21:32 Dextrose/Sodium Chloride 1,000 ml @ 84 mls/hr [id number] IV Last administered on 08/14/17at 13:27; Start 08/13/17 at 20:45 Dextrose (D50w (Vial) Inj) 50 ml UNSCH PRN IV PUSH HYPOGLYCEMIA-SEE COMMENTS; Start 08/13/17 at 20:45 Glucagon (Glucagon Inj) 1 mg UNSCH PRN OTHER HYPOGLYCEMIA-SEE COMMENTS; Start 08/13/17 at 20:45 Sodium Chloride 500 ml @ 500 mls/hr BOLUS ONCE IV Last administered on at 10:00; Start 08/14/17 at 10:00; Stop 08/14/17 at 10:59; Status DC Potassium Bicarb/ Potassium Chloride (K-Lyte Cl Eff) 50 meq ONCE ONCE PO Last administered on 08/14/17at 12:30; Start 08/14/17 at 10:00; Stop 08/14/17 at 10: 01; Status DC Fentanyl Citrate (fentaNYL INJ) 200 mcg STK-MED ONCE .ROUTE Last administered on 08/14/17at 11:35; Start 08/14/17 at 11:18; Stop 08/14/17 at 11:19; Status DC Iohexol (Omnipaque 350 Inj) 15 ml STK-MED ONCE IVCONTRAST Last administered on 08/14/17at 12:12; Start 08/14/17 at 12:12; Stop 08/14/17 at 12:13; Status DC Furosemide (Lasix Inj) 40 mg BID@09,18 IV PUSH ; Start 08/14/17 at 18:00; Status UNV Albuterol/ Ipratropium (Duoneb Neb) 1 ampule QID NEB NEB ; Start 08/14/17 at 20: 00; Status UNV A/P Assessment and Plan 82-year-old male history of DVT on anticoagulation who presented with GI bleed GI bleed -Anticoagulation held secondary to active GI bleed. He was on Lovenox and Coumadin at the longterm. Positive guaiac in the ER. Patient currently on Protonix. Continue with Protonix. GI consulted. -Pending hemoglobin. -Will transfuse if hemoglobin less than 7 or less than 8 for active GI bleed. Hypotension -May be secondary to GI bleed. No infectious source noted. -Will give IV fluids due to hypotension systolic blood pressure in the 70s. He be cautious due to CHF but at the same time blood pressures too low. Would need to monitor closely. Will get a UA. Left lower extremity deep femoral vein and popliteal vein thrombosis -Patient was on Lovenox and Coumadin which was held secondary to GI bleed. [employer] consulted. Recent history of thrombocytopenia in last admission. -Gleevec held secondary to thrombocytopenia but that was restarted at the rehabilitation center. Platelet at the moment is 163,000 and stable. Hypokalemia/Hypocalcemia -Replenish as needed. Right foot pain since June 05, 2017 from a fall. -will get a repeat x-ray of the foot and consult director of distribution since this has been a chronic problem that is preventing patient from having effective rehabilitation. HTN/diabetes/s/p ppm/AICD/CAD s/p ID/CHF latest echo June 26, 2017 reviewed. 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 Otherwise home medication resumed. Later during the hospital course nurse was not able to get a pulse ox and systolic blood pressure was in the 80s. Clinically patient didn't show any signs to radiation. HEENT showed no signs or shortness of breathing. He did not complain shortness of breathing. Rapid response was called. ABG was done which was normal. Extremities were edematous may be secondary to edema. Will get a stat chest x-ray. Noted some scattered wheezing. Will schedule DuoNeb's. I spoke to rapid response nurse in regards to update. Patient's is at the bedside. I explained to the what was going on, prognosis, management and treatment. She understood. I will also went over CODE STATUS and agreed to continue with DO NOT RESUSCITATE. Also explained to her that he may deteriorate quickly. She stated that she understood. She wanted me to call her son in regards to his father's update. I spoke to Esteban at [phone] in regards to his father's status. All questions answered. He stated that he understood and that his father has been sick and he knows that he can deteriorate quickly and may . He had no other questions and was thankful for the call. Olivia Kemp MD Aug 14, 2017 09:39
[2017-08-14] MEDS ORDERED: SODIUM CHLORID 0.9% 500 ML INJ 500 ML IV ONE (10:00)
[2017-08-14] MEDS ORDERED: POTASSIUM CHLORIDE 25 MEQ EFFERVESCENT TAB PO ONE (10:00)
[2017-08-14 10:56] LABS: BANDS 10 % (0-6); LYMPHOCYTES 38 % (9-44); MONOCYTES 7 % (0-8); NEUTROPHIL # MANUAL DIFF 8.1 TH/MM3 (1.8-7.7); POLYS (SEG NEUTROPHILS) 45 % (16-70)
[2017-08-14 10:57] LABS: SMUDGE CELLS PRESENT PRESENT; TOXIC GRANULATION 1+ (NORMAL)
--- NOTE | 2017-08-14 10:59 | RADRPT ---
EXAM DATE/TIME: 08/14/2017 10:15 [facility] COMPARISON: No previous studies available for comparison. INDICATIONS : Thrombosis. MEDICAL HISTORY : Myocardial infarction. CHF. Hypertension. COPD. GERD. Renal disease. Kidney stones. Diabetes. Leukemi a. Chemotherapy. Radiation therapy. SURGICAL HISTORY : Pacemaker. Left knee surgery. ENCOUNTER: Subsequent ACUITY: 1 day PAIN SCORE: 9/10 LOCATION: Bilateral leg. TECHNIQUE: Venous ultrasound of the left and right leg was performed from the inguinal ligament to the proximal calf. Real-time, color Doppler and spectral tracing, compression and augmentation techniques were us ed. FINDINGS: RIGHT LEG: There is normal compressibility of the deep venous system from the inguinal region to the proximal ca lf. Occlusive deep venous thrombus is noted within the right posterior tibial veins. No echogenic dawn t is seen in the lumen of the common femoral, femoral, and popliteal vein. There is a normal respons e of the venous system to proximal and distal augmentation and respiration. LEFT LEG: Nonocclusive deep venous thrombus is noted within left common femoral vein. Near-occlusive deep venou s thrombus is noted within the left proximal superficial femoral vein. Nonocclusive deep venous throm bus is noted within the left peroneal veins. There is normal color flow within the left distal superf icial femoral, popliteal veins and posterior tibial veins. CONCLUSION: 1. Near-occlusive deep venous thrombosis within the left proximal superficial femoral vein and nonocc lusive deep venous thrombus within the left common femoral and peroneal veins. 2. Occlusive deep venous thrombus within the right posterior tibial veins. Max Briggs MD on August 14, 2017 at 10:52 Board Certified Radiologist. This report was verified electronically.
--- NOTE | 2017-08-14 11:17 | MB ---
cc: KEV CHAIREZ M.D. DATE OF CONSULTATION: 08/14/2017 REFERRING PHYSICIAN: Dr. Reyes. REASON FOR CONSULTATION: Hematology consult to render opinion regarding patient with new deep venous thrombosis in the setting of gastrointestinal bleed. HISTORY OF PRESENT ILLNESS: The patient is a very pleasant 82 year old male with history of chronic myelogenous leukemia, currently on Gleevec, brought into the emergency room from the rehab center with newly diagnosed left lower extremity deep venous thrombosis. The patient had a prolonged hospital stay recently for sepsis/pneumonia and gastrointestinal bleed. He had Esophagogastroduodenoscopy and colonoscopy which showed ulceration in colon, possibly due to ischemia, Crohn's disease. When he was discharged from the hospital in July 29, the hemoglobin was 11. He apparently developed swelling of the left lower extremity and ultrasound done at [facility] showed deep venous thrombosis. He was given a dose of Lovenox and coumadin and sent to the emergency room. The patient is complaining of right lower extremity pain which has been going on since May after he fell. The deep venous thrombosis however, is in the left lower extremity. He is not complaining of any pain in the lower extremities. He denies any fever, any chills. He has no chest pressures, palpitations, he denies any shortness of breath or cough. He denies any nausea, vomiting, he denies any abdominal pain. In the emergency room a stroke blood test was still positive, the patient cannot tell me if he still has melena. He denies any nausea, vomiting. PAST MEDICAL HISTORY: 1. Chronic myalgias. 2. Leukemia diagnosed 1998. 3. Gleevec. 4. Chronic kidney disease. 5. Abdominal aortic aneurysm. 6. Chronic obstructive pulmonary disease. 7. Diabetes mellitus. 8. diverticulosis. 9. Hiatal hernia 10. Hyperlipidemia. 11. Hypertension. 12. Skin squamous cell carcinoma. 13. Kidney stones. 14. Coronary artery disease. PAST SURGICAL HISTORY: 1. Cataract surgery. 2. Right knee surgery. 3. Colonoscopy. 4. Upper endoscopy. 5. Bilateral ear tube placement. FAMILY HISTORY: No leukemia SOCIAL HISTORY: No tobacco, no alcohol use. Lives with his , recently he is residing in rehabilitation center. ALLERGIES NO KNOWN DRUG ALLERGIES. MEDICATIONS: Pantoprazole Gleevec which is now on hold. REVIEW OF SYSTEMS CONSTITUTIONAL: Generalized weakness and fatigue. EYES: Negative. EAR, NOSE, AND THROAT: Negative. CARDIOVASCULAR SYSTEM: Denies any chest pressure, palpitations, denies shortness of breath or cough. GASTROINTESTINAL: As above. GENITOURINARY: No dysuria, hematuria. MUSCULOSKELETAL: As above. HEMATOLOGY: As above. ENDOCRINE: Negative. DERMATOLOGY: Negative. PSYCHIATRIC: Negative. NEUROLOGIC: Negative. PHYSICAL EXAMINATION: VITAL SIGNS: Temperature 96.2, blood pressure 90/58, o2 saturation 92%. IN GENERAL: He is alert and oriented times three. No acute distress. He is a little weak. HEAD, EYES, EARS, NOSE, AND THROAT: Atraumatic, normocephalic. Pupils equal, round and reactive eyes. Extraocular muscles intact, no scleral icterus. Oropharynx dry, mucosa with no lesion. NECK: No thyromegaly. No palpable mass. LYMPHATICS: No palpable cervical, clavicular or axillary lymph nodes. CARDIOVASCULAR SYSTEM: Regular S1, S2, no murmur. LUNGS: Clear to auscultation anteriorly. ABDOMEN: Soft, nontender, I could not palpate liver or spleen. EXTREMITIES: Tenderness in the right lower extremities, slight edema bilateral lower extremities, no significant calf tenderness on the left side. LABORATORY DATA: White blood count 14.7, hemoglobin 9, platelet count 163. INR 1.4, PTT 33.9. Creatinine of 2.05. ASSESSMENT: 1. Left lower extremity deep venous thrombosis. He developed swelling of the lower extremities and pain in the right lower extremity, ultrasound done at rehab reportedly showed LLE acute deep venous thrombosis. He was given a dose of Lovenox and coumadin at the rehabilitation center and then sent to emergency room. In the emergency room his stool guaiac test was positive. His hemoglobin was 9.4. It was 11 on July 29. He recently was admitted to the hospital for gastrointestinal bleed. The work up showed multiple colon ulceration which could be due to ischemic colitis. He has no pulmonary symptoms. Given his active gastrointestinal bleed, full anticoagulation is contraindicated at this time. I talked to the patient about IVC filter placement which could protect him from getting a pulmonary embolism. However it will not prevent extension of the Deep venous thrombosis. He agreed to proceed. I will consult radiology for the IVC filter placement. I tried to call his but no one is picking up the phone. I also recommended another gastrointestinal work up given his stool guaiac test is still positive. If he has no active bleeding then we may start him on low dose anticoagulation which hopefully could prevent further extension of clot. 2. Chronic myelogenous leukemia. He has been on Gleevec since 1998. His Gleevec was on hold recently because of low platelet counts, his blood count is back to normal. He is back on the Gleevec. No clear progression of disease at this time. 3. Recent gastrointestinal bleed as above. GI has been consulted for further work up. 4. Chronic kidney disease, likely cause of anemia. 5. Chronic obstructive pulmonary disease. 6. Coronary artery disease. 7. Diabetes mellitus. RECOMMENDATIONS: 1. Discussion with patient as above. 2. Consult radiology for IVC filter placement. 3. Await further gastrointestinal work up. 4. If no active gastrointestinal bleed, can consider starting him on low dose anticoagulation. 5. Monitor complete blood count. 6. Thank you Dr. Reyes for asking me to see this patient. MD ERIK Robins/naga /10:18 AM /10:31 AM NICK
--- NOTE | 2017-08-14 11:54 | PD.RAD ---
Post Procedure Progress Note Pre Procedure Diagnosis: (1) DVT (deep venous thrombosis) Post Procedure Diagnosis: (1) DVT (deep venous thrombosis) Procedure Date: Aug 14, 2017 Supervising Radiologist: Ajay Bardales Proceduralist/Assist: Julia uJan, RT(R), Eva Raphael, RT(R) Anesthesia: Conscious Sedation Plan of Activity Patient to Unit: Nursing Unit Patient Condition: Fair See PACS Report for procedural detail/treatment Vascular-Venous Procedure Procedure 1 Procedure(s): Permanent IVC Filter Access Access Site(s): Right Jugular Vein Closure Site(s): Right manual pressure Ajay Bardales MD Aug 14, 2017 11:54
[2017-08-14] MEDS ORDERED: IOHEXOL 350 MG/ML 50 ML BTL (for RAD DIAG) IVCONTRAST ONE (12:12)
[2017-08-14] MEDS: DEXT 5%-NACL 0.9% 1000 ML INJ 1,000 ML IV SCH ×2 (13:27→18:42)
--- NOTE | 2017-08-14 13:56 | RADRPT ---
EXAM DATE/TIME: 08/14/2017 13:01 [facility] COMPARISON: No previous studies available for comparison. INDICATIONS : Pain with no known injury. MEDICAL HISTORY : Myocardial infarction. CHF. Hypertension. COPD. GERD. Renal disease. Kidney stones. Diabetes. Leukemi a. Chemotherapy. Radiation therapy. SURGICAL HISTORY : Pacemaker. Left knee surgery. ENCOUNTER: Subsequent ACUITY: 2 months PAIN SCORE: 10/10 LOCATION: Right Foot. FINDINGS: No definite fractures, or dislocations are identified. No definite lytic or sclerotic lesion is seen . Slight degenerative changes present within multiple joints. Chronic atherosclerotic calcifications are seen involving the visualized arteries. CONCLUSION: No definite fracture is seen for technique. Johnny Larson MD on August 14, 2017 at 13:52 Board Certified Radiologist. This report was verified electronically.
--- NOTE | 2017-08-14 14:58 | RADRPT ---
EXAM DATE/TIME: 08/14/2017 12:20 [facility] COMPARISON: No previous studies available for comparison. INDICATIONS : Patient with a history of thrombus needs filter placement. MEDICAL HISTORY : HTN Diabetes CAD COPD Chronic kidney disease Thrombocytopenia Gastroesophageal reflux disease Diverticulosis Hiatal hernia SURGICAL HISTORY : Lung biopsy Heart cath Knee surgery Nose surgery Ear surgery ENCOUNTER: Initial ACUITY: 2 days PAIN SCORE: 4/10 LOCATION: Right foot FLUORO TIME: 1.5 minutes IMAGE SERIES: 2 ACCESS SITE: Right Internal jugular vein CONTRAST: 1.) 15 cc Omnipaque (iohexol) 350 MEDICATION(S): 1.) 100 mcg fentanyl (Sublimaze) IV DEVICE(S): 1.) Inferior vena cava B Woody Venatech filter PROCEDURE : 1. Ultrasound-guided venipuncture. 2. Inferior venacavogram. 3. Inferior vena cava filter placement. 4. Conscious sedation with continuous EKG and oximetry monitoring. The risks, benefits and alternatives to the procedure were explained and verbal and written consent w as obtained. The site was prepped in sterile fashion. Full sterile technique was used, including ca p, mask, sterile gloves and gown and a large sterile sheet. Hand hygiene and 2% chlorhexidine and/or betadine/alcohol prep was utilized per protocol for cutaneous antisepsis. Sterile gel and sterile p robe cover were utilized for ultrasound guidance. The skin and subcutaneous tissues were infiltrated with local anesthetic solution. With ultrasound and fluoroscopic guidance the targeted vein was punctured and a vascular sheath was p laced. Inferior venacavogram was performed to demonstrate level of renal veins. No caval thrombus was identified. The prescribed filter was deployed in the infrarenal inferior vena cava. Following deplo yment the filter was identified in good position. Conscious sedation was performed with the prescribed dosages and duration as above in the presence of an independent trained radiology nurse to assist in the monitoring of the patient. EKG and oximetry remained stable throughout the procedure. The patient tolerated the procedure well and there were n o complications. The patient was sent to post anesthesia recovery in stable condition. CONCLUSION: Uncomplicated inferior vena cava filter placement as above. Ajay Bardales MD on August 14, 2017 at 14:55 Board Certified Radiologist. This report was verified electronically.
--- NOTE | 2017-08-14 16:30 | RADRPT ---
EXAM DATE/TIME: 08/14/2017 16:15 [facility] COMPARISON: CHEST SINGLE AP, July 19, 2017, 3:32. INDICATIONS : Short of breath. MEDICAL HISTORY : Myocardial infarction. CHF. Hypertension. COPD. GERD. Renal disease. Kidney stones. Diabetes. Leukemi a. Chemotherapy. Radiation therapy. SURGICAL HISTORY : Pacemaker. Left knee surgery. ENCOUNTER: Initial ACUITY: 1 day PAIN SCORE: Non-responsive. LOCATION: Bilateral chest FINDINGS: Left subclavian pacer wire has not changed and the previously seen right IJ line has been removed. Pr obable skin folds identified overlapping the left upper chest could be followed. Mild atelectasis is seen in both lung bases. Focal consolidation is not seen. Heart and mediastinum are unremarkable for technique. CONCLUSION: Probable skin fold overlapping the left upper chest and slight bibasilar atelectasis. Johnny Larson MD on August 14, 2017 at 16:26 Board Certified Radiologist. This report was verified electronically.
--- NOTE | 2017-08-14 16:54 | PD.WCN.NOT ---
Wound Consult Description: Wound consult ordered by for sacral, left heel and shoulder Communicated with: Blane MAY [address] [place] [address], Dr. Justo JOHNSON Recommendation: 1) Reposition patient every 2 hours for comfort and offloading 2) Cleanse sacral/coccyx wounds with normal saline pat dry.Apply thick layer of Calazime cream BID. 3) Apply skin prep to midline scapulas deep tissue injuries TID avoid prolong positioning on back. 4) Avoid using any adhesive on skin 5) Refer to podiatry recommendation for below knee wounds. Additional Information: Patient was seen today on by web content writer, Blane MAY [address] [place] [address] and . Assessment finding patient has scattered DTI on midline upper back between scapulas in which Blane states patient came in with dressing applied to area when removed DTI noted.Skin prep applied left open to air. Patient has moisture/ pressure related areas x5 scattered across Sacral/buttocks area largest measuring on L buttocks 6.0 x 5.3cm x yellow slough smallest sacral 1.7cm x ~ 1.0 cm x yellow slough. Unable to measure all wounds due to patient discomfort.All wounds cleansed with normal saline pat dry Calazime cream applied in thick layer. Patient has very fragile skin at this time increase risk for bleeding/bruising/skin tears please do not use adhesive on skin.Podiatry will be writing orders on wounds below the knee. Facundo Rosario [facility] Aug 14, 2017 16:54
[2017-08-14] MEDS ORDERED: FUROSEMIDE 20 MG/2 ML VIAL IV PUSH ONE (17:30)
[2017-08-14] MEDS ORDERED: FUROSEMIDE 40 MG/4 ML VIAL IV PUSH SCH (18:00)
--- NOTE | 2017-08-14 18:24 | PD.CONS ---
Consult Service Palliative Care Consult Requested By Dr. Kemp Primary Care Physician Non-Staff Reason for Consultation a. To assist with evaluation and management of symptoms including: Weakness , pain b. To assist medical decision maker(s) with: better understanding of current medical conditions; weighing benefits/burdens of medical treatment options; making medical treatment decisions. HPI History of Present Illness This 82-year-old man presented to the ED on 08/13/17 from [facility] for reported diagnoses of DVT left lower extremity, as well as treatment for GI bleed. He is noted to have recent prolonged hospitalization. He has developed edema, ultrasound findings indicated acute DVT deep femoral vein as well as popliteal vein left. He reportedly received a dose of Lovenox and warfarin and was sent to the ED. * In the ED noted stool guaiac positive, CBC notable for WBC 15.7, hemoglobin 9.4, platelet 158. BUN and creatinine elevated 38/1.90. INR 1.4. Patient was admitted for further evaluation and management: ongoing anticoagulation versus filter. Anticoagulation held secondary to GI bleed. On Protonix. GI consulted. Hematology consulted. * Patient also complaining of chronic right foot pain he has had since May. Patient intermittently a poor historian. elected DNR status with medical attending. Local attending discussed condition and prognosis with patient and son 08/14. Palliative Care consulted to assist with clarification of goals of treatment. * Hematology recommends secondary to current active GI bleed fully anticoagulation contraindicated. He did discuss IVC filter with patient who agreed to proceed. Radiology was consulted for IVC filter. 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 Continue w GI workup. If no active GI bleed scan consider low-dose anticoagulation. * IVC filter placed 08/14/17 by IR * Wound care following patient noted with sacral/coccyx wounds, deep tissue injury to upper mid back between scapula, and left heel wound. Podiatry to follow for foot wound. CXR with slight bibasilar atelectasis. Palliative care consulted to assist with clarification of goals of treatment. Patient seen in room with primary nurse at bedside. also seated at bedside. Patient was lethargic he stirs some to exam of does not remain awake. He is oriented to self and . remembers me from prior interactions during most recent hospitalization. She details that during his recent recurrent hospitalizations he has gotten increasingly weaker and more debilitated she sees him each time leave the hospital less well. She does feel during rehabilitation most recently he was actually doing pretty well;she indicates he would participate with PT though He essentially was limited to range of motion in the bed and sitting at the bedside , he still was unable to stand and hold his own weight. He was minimally physically active on his own due to weakness. He was able to move himself around in bed. His appetite has been poor for the past weeks she attributes this to him not liking the soft and pured foods. He has not had any abdominal complaints or issues. He has had chronic ongoing pain to his right heel. Review of current conditions, diagnostics and pending workup/treatments. She seems to have a fair understanding of conditions and treatments in place. Review of ongoing risk for further complications and ongoing weakness. She seems to understand this. Further gently explore with her that if the patient continues to have ongoing medical issues and he does not desire further invasive measures and recurrent hospitalizations then they may want hospice to ensure comfort and provide support at end-of-life. She endorses that the patient doesn't want to suffer, and that she does not want him to suffer, and that if they see he gets to a point where his conditions aren't treatable then they will elect hospice. She wishes to continue treatments currently in place, and will have ongoing discussions with her sons who are coming in town, and medical team members during current hospital course. Of note this patient known to palliative from prior consultation during most recent admission 06/24/17 through 07/29/17: Additional history: Palliative saw this patient 07/07/17. During that admission patient presented for abdominal pain, vomiting. Also some episodes of hypotension and decreased oral intake, decreased output. GI followed patient with ileus, fluctuating abdominal bowel gas patterns. In and out of the ICU. Gleevec held due to thrombocytopenia though resumed once patient platelets 100,000. Patient required an NG tube. During that admission I saw this patient several times, he was intermittently a poor historian, intermittently oriented forgetful at times. He intermittently did not wish to participate with activities. Requiring BiPAP at times. Very debilitated and weak. Patient supported by family elected DNR status. Patient was slight improvement during hospital course the remaining weak and high risk for complication and decline. He was having minimal participation with PT however patient and family wish to try to rehabilitate and restore function as much as they could. They were not interested in comfort measures/hospice. He was discharged to the [facility] 07/29. Function/Cognitive Trajectory Dependent for ADLs, most recently discharged to SNF following month long hospitalization. Cognitive status fluctuates at times forgetful, confused and poor historian, other times partially mostly oriented. Review of Systems ROS Limitations: Poor Historian, Other (lethargic does not participate, limited ROS per ) Constitutional: COMPLAINS OF: Change in appetite (decrease), Pain (chronic right heel), Generalized weakness (ongoing), DENIES: Fever Eyes: DENIES: Vision loss Ears, nose, mouth, throat: DENIES: Oral lesions, Throat pain Respiratory: DENIES: Cough, Sputum production, Shortness of breath Cardiovascular: COMPLAINS OF: Lower Extremity Edema, DENIES: Chest pain Gastrointestinal: COMPLAINS OF: Bloody stools, Anorexia, DENIES: Abdominal pain , Constipation, Diarrhea, Nausea, Vomiting, Difficulty Swallowing Musculoskeletal: COMPLAINS OF: Muscle aches (foot pain) Hematologic/Lymphatics: COMPLAINS OF: Bruising Psychiatric: COMPLAINS OF: Confusion Past Family Social History Coded Allergies: No Known Allergies (Verified , 09/19/15) Past Medical History Hypertension Diabetes CML since 1998, on Gleevec-BCR/ABL-positive follows w Dr Patel Migraines GERD Nephrolithiasis Obstructive sleep apnea AAA CAD s/p PR Chronic systolic heart failure, EF 15% COPD on home oxygen CKD CML thrombocytopenia Past Surgical History lung biopsy Bilateral ear tubes heart cath Left total knee nose surgery Cataract surgery AICD placement . Reported Medications Methadone (Methadone HCl) 5 Mg Tab 2.5 Mg PO BID Senna Plus 8.6-50 mg (Sennosides-Docusate Sodium) 8.6 Mg-50 Mg Tab 1 Tab PO BID Proair Hfa 8.5 GM Inh (Albuterol Sulfate) 90 Mcg/Act Aer 2 Puff INH Q4-6H PRN 108 mcg/actuation Zinc Sulfate 220 Mg (50 Mg Zinc) Cap 220 Mg PO DAILY Preparation H Topical (Nxksnqiyp-Sbgigcsvynldg-Zynzvtbv Topical) 1-0.25-14.4-15 % Cre 1 Applic RECTAL QID PRN Nitrofurantoin Macrocrystal 100 Mg Cap 100 Mg PO QID Multi Vitamin Daily (Multiple Vitamin) 1 Tab Tab Milk of Magnesia Liq (Magnesium Hydroxide) 400 Mg/5 Ml Susp 30 Ml PO DAILY PRN Lovenox Inj (Enoxaparin Sodium) 40 Mg/0.4 Ml Syr 40 Mg SQ BID Humalog Inj (Insulin Human Lispro) 1,000 Unit/10 Ml Vial 5-25 Units SQ ACHS Max dose at bedtime:( )units; sugars < 70,(0)units; sugars 150-199,(5)units; sugars 200-249,(10)units; sugars 250-299,(15)units; sugars 300-349,(20)units; sugars more than 349,(25)units. Enema Disposable (Sodium Phosphates) 19 Gram-7 Gram/118 Ml Aimee Duoneb (Ipratropium-Albuterol Neb) 0.5-2.5 Mg/3 Ml Neb 1 Nebule INH Q6HR NEB Dulcolax Supp (Bisacodyl) 10 Mg Supp 10 Mg RECTAL DAILY PRN Coumadin (Warfarin) 5 Mg Tab 5 Mg PO DAILY Citroma Liq (Magnesium Citrate) 300 Ml Liq 300 Ml PO DIRECTED Oxycodone (Oxycodone HCl) 10 Mg Tab 10 Mg PO Q4H PRN Ascorbic Acid 500 Mg Tab 500 Mg PO Tylenol (Acetaminophen) 325 Mg Tab 650 Mg PO Q4H PRN Tylenol (Acetaminophen) 325 Mg Tab 650 Mg PO Q4H PRN Ferrous Sulfate 325 Mg (65 Mg Iron) Tablet 325 Mg PO BIDPC Amiodarone (Amiodarone HCl) 200 Mg Tab 200 Mg PO DAILY Coreg (Carvedilol) 3.125 Mg Tab 3.125 Mg PO BID Aspirin 325 Mg Tab 325 Mg PO DAILY Lasix (Furosemide) 40 Mg Tab 40 Mg PO DAILY Gleevec (Imatinib Mesylate) 100 Mg Tab 400 Mg PO DAILY . Current Medications Medications (Trade) Dose Ordered Sig/Sunil Route Start Time Stop Time Status Last Admin (NS Flush) 2 ml UNSCH PRN IV FLUSH 08/13/17 16:45 (NS Flush) 2 ml BID IV FLUSH 08/13/17 21:00 08/13/17 19:49 (Narcan Inj) 0.4 mg UNSCH PRN IV PUSH 08/13/17 16:45 (Dilaudid Pf Inj) 0.2 mg Q4H PRN IV PUSH 08/13/17 20:30 08/14/17 10:51 Pantoprazole Sodium 80 mg/ Sodium Chloride 100 ml @ 10 mls/hr Q10H IV 08/13/17 21:32 08/14/17 08:14 Dextrose/Sodium Chloride 1,000 ml @ 84 mls/hr [id number] IV 08/13/17 20:45 08/14/17 13:27 (D50w (Vial) Inj) 50 ml UNSCH PRN IV PUSH 08/13/17 20:45 (Glucagon Inj) 1 mg UNSCH PRN OTHER 08/13/17 20:45 (Duoneb Neb) 1 ampule QID NEB NEB 08/14/17 20:00 UNV (Lasix Inj) 20 mg ONCE ONCE IV PUSH 08/14/17 17:30 08/14/17 17:31 UNV Family History lost 4 children- one from [place] at 26 yo, another one from meningitis at 4 months old, 2 from cancer in their 50s --- but all of them were premature babies has 8 children total with the patient- 4 living, 4 as above Substance Use Tobacco: 1 PPD since age 15 quit 1993 Alcohol: Using alcohol 1993 Prescription med abuse: None Illicits: None . Psychosocial History Before most recent hospitalization, Lives at home with his of 61 years. Originally from [place], moved to [place] in the . Has adult children and grandchildren who still resided [place]. Retired from [employer]. Most recently at the [employer] [facility] [facility]. 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 Living Will: Completed, but not made available Health Care Surrogate: Completed, but not made available Durable Power of Ironworker Machine Operator: Completed, but not made available Ethical and Legal Issues Patient is lethargic/poor historian; likely would best be supported by shared decision-making by either his or whomever is designated healthcare surrogate. May have advanced directives --last admission requested advance directives we did not receive. Physical Exam Vital Signs Date Time Temp Pulse Resp B/P (MAP) Pulse Ox O2 Delivery O2 Flow Rate FiO2 08/14/17 16:00 97.3 90 20 92/59 (70) 82 08/14/17 13:04 96.6 74 20 104/63 (77) 93 08/14/17 08:27 90/58 (69) 08/14/17 08:00 98.5 76 20 93/48 (63) 92 08/14/17 04:13 96.2 92 16 98/54 (69) 92 08/14/17 00:32 97.6 77 16 96/62 (73) 92 08/13/17 20:00 96.8 84 16 76/55 (62) 80 08/14/17 08/15/17 19:00 07:00 Intake Total 250 ml Balance 250 ml Intake IV Total 250 ml Exam CONSTITUTIONAL/GENERAL: This is an adequately nourished patient, in no apparent distress, sleeping soundly minimally stirs and interacts during my exam TUBES/LINES/DRAINS: Peripheral IV upper extremity, nasal cannula O2 SKIN: No jaundice, rashes, or lesions. Multiple areas of petechiae/ecchymosis to upper chest/shoulders, Ecchymoses on upper extremities.+ 3 cm round pressure injury /ulcer right heel, dark. Skin temperature warm/dry.. HEAD: Atraumatic. Normocephalic. EYES: Does not open eyes for pupil exam. ENT: Nose without bleeding or purulent drainage. Does not open mouth for oropharynx exam. NECK: Trachea midline. Supple, nontender. No palpable thyroid enlargement or nodularity. CARDIOVASCULAR: Regular rate and rhythm without murmur. No JVD. Peripheral pulses symmetric. Trace edema left lower extremity. RESPIRATORY/CHEST: Symmetric, unlabored respirations. On nasal cannula. Scattered expiratory wheezes. Breath sounds equal bilaterally. No wh GASTROINTESTINAL: Abdomen soft, non-tender, nondistended. No hepato-splenomegaly , or palpable masses. No guarding. Bowel sounds hypoactive. GENITOURINARY: Without palpable bladder distension.+ Edema left lower extremity. No joint tenderness or effusion noted. LYMPHATICS: No palpable cervical or supraclavicular adenopathy. NEUROLOGICAL: Lethargic, minimally stirs to my exam. Does not answer most of my questions. Speaks a little bit to his . He appears oriented to self, . Does not follow my commands ,remain sleeping. Observe him move all 4 extremities spontaneously. PSYCHIATRIC: No obvious anxiety/depression. no apparent hallucinations or other psychotic thought process. Diagnostic Tests Laboratory Laboratory Tests Test 08/13/17 13:00 08/14/17 04:20 08/14/17 08:22 08/14/17 16:05 White Blood Count 15.7 TH/MM3 (4.0-11.0) 14.7 TH/MM3 (4.0-11.0) Red Blood Count 3.16 MIL/MM3 (4.50-5.90) 3.00 MIL/MM3 (4.50-5.90) Hemoglobin 9.4 GM/DL (13.0-17.0) 9.0 GM/DL (13.0-17.0) Hematocrit 28.7 % (39.0-51.0) 27.4 % (39.0-51.0) Mean Corpuscular Volume 90.7 FL (80.0-100.0) 91.4 FL (80.0-100.0) Mean Corpuscular Hemoglobin 29.8 PG (27.0-34.0) 30.2 PG (27.0-34.0) Mean Corpuscular Hemoglobin Concent 32.8 % (32.0-36.0) 33.0 % (32.0-36.0) Red Cell Distribution Width 16.9 % (11.6-17.2) 16.8 % (11.6-17.2) Platelet Count 158 TH/MM3 (150-450) 163 TH/MM3 (150-450) Mean Platelet Volume 7.5 FL (7.0-11.0) 7.6 FL (7.0-11.0) Neutrophils (%) (Auto) 51.9 % (16.0-70.0) 49.4 % (16.0-70.0) Lymphocytes (%) (Auto) 42.1 % (9.0-44.0) 44.7 % (9.0-44.0) Monocytes (%) (Auto) 5.5 % (0.0-8.0) 5.6 % (0.0-8.0) Eosinophils (%) (Auto) 0.1 % (0.0-4.0) 0.0 % (0.0-4.0) Basophils (%) (Auto) 0.4 % (0.0-2.0) 0.3 % (0.0-2.0) Neutrophils # (Auto) 8.2 TH/MM3 (1.8-7.7) 7.2 TH/MM3 (1.8-7.7) Lymphocytes # (Auto) 6.6 TH/MM3 (1.0-4.8) 6.6 TH/MM3 (1.0-4.8) Monocytes # (Auto) 0.9 TH/MM3 (0-0.9) 0.8 TH/MM3 (0-0.9) Eosinophils # (Auto) 0.0 TH/MM3 (0-0.4) 0.0 TH/MM3 (0-0.4) Basophils # (Auto) 0.1 TH/MM3 (0-0.2) 0.0 TH/MM3 (0-0.2) CBC Comment AUTO DIFF AUTO DIFF Differential Total Cells Counted 100 100 Neutrophils % (Manual) 22 % (16-70) 45 % (16-70) Band Neutrophils % 8 % (0-6) 10 % (0-6) Lymphocytes % 59 % (9-44) 38 % (9-44) Monocytes % 2 % (0-8) 7 % (0-8) Eosinophils % 1 % (0-4) Neutrophils # (Manual) 4.7 TH/MM3 (1.8-7.7) 8.1 TH/MM3 (1.8-7.7) Differential Comment FINAL DIFF MANUAL FINAL DIFF MANUAL Atypical Lymphocytes 8 % (0-0) Smudge Cells PRESENT PRESENT Toxic Granulation 1+ (NORMAL) 1+ (NORMAL) Platelet Estimate NORMAL (NORMAL) NORMAL (NORMAL) Platelet Morphology Comment NORMAL (NORMAL) NORMAL (NORMAL) Ovalocytes 1+ (NORMAL) Prothrombin Time 14.5 SEC (9.8-11.6) Prothromb Time International Ratio 1.4 RATIO Activated Partial Thromboplast Time 33.9 SEC (24.3-30.1) Blood Urea Nitrogen 38 MG/DL (7-18) 40 MG/DL (7-18) Creatinine 1.90 MG/DL (0.60-1.30) 2.05 MG/DL (0.60-1.30) Random Glucose 113 MG/DL (74-106) 194 MG/DL (74-106) Total Protein 5.2 GM/DL (6.4-8.2) 4.8 GM/DL (6.4-8.2) Albumin 1.2 GM/DL (3.4-5.0) Calcium Level 7.0 MG/DL (8.5-10.1) 6.9 MG/DL (8.5-10.1) Alkaline Phosphatase 123 U/L (45-117) Aspartate Amino Transf (AST/SGOT) 51 U/L (15-37) Alanine Aminotransferase (ALT/SGPT) 35 U/L (12-78) Total Bilirubin 0.6 MG/DL (0.2-1.0) Sodium Level 142 MEQ/L (136-145) 143 MEQ/L (136-145) Potassium Level 3.2 MEQ/L (3.5-5.1) 3.0 MEQ/L (3.5-5.1) Chloride Level 102 MEQ/L (98-107) 104 MEQ/L (98-107) Carbon Dioxide Level 34.1 MEQ/L (21.0-32.0) 31.4 MEQ/L (21.0-32.0) Anion Gap 6 MEQ/L (5-15) 8 MEQ/L (5-15) Estimat Glomerular Filtration Rate 34 ML/MIN (>89) 31 ML/MIN (>89) Protein Corrected Calcium 8.0 MG/DL (8.5-10.1) 8.1 MG/DL (8.5-10.1) Magnesium Level 1.7 MG/DL (1.5-2.5) Blood Gas Puncture Site RT RADIAL Blood Gas Patient Temperature 98.6 Blood Gas HCO3 29 mmol/L (22-26) Blood Gas Base Excess 5.2 mmol/L (-2-2) Blood Gas Oxygen Saturation 97 % (90-100) Arterial Blood pH 7.48 (7.380-7.420) Arterial Blood Partial Pressure CO2 39 mmHg (38-42) Arterial Blood Partial Pressure O2 451 mmHg (61-120) Arterial Blood Oxygen Content 13.7 Vol % (12.0-20.0) Arterial Blood Carboxyhemoglobin 0.0 % (0-4) Arterial Blood Methemoglobin 0.7 % (0-2) Blood Gas Hemoglobin 9.2 G/DL (12.0-16.0) Oxygen Delivery Device Non-Rebreathing Mask Blood Gas Liter Flow 15 L/M Blood Gas Inspired Oxygen 100 % Result Diagram: 08/14/17 0822 08/14/17 0822 Imaging Last Impressions Lower Extremity Ultrasound 08/14/17 0000 Signed Impressions: Service Date/Time: August 10:15 - CONCLUSION: 1. Near-occlusive deep venous thrombosis within the left proximal superficial femoral vein and nonocclusive deep venous thrombus within the left common femoral and peroneal veins. 2. Occlusive deep venous thrombus within the right posterior tibial veins. Max Briggs MD IVC Filter Placement X-Ray 08/14/17 0000 Signed Impressions: Service Date/Time: August 12:20 - CONCLUSION: Uncomplicated inferior vena cava filter placement as above. Ajay Bardales MD Foot X-Ray 08/14/17 0000 Signed Impressions: Service Date/Time: August 13:01 - CONCLUSION: No definite fracture is seen for technique. Johnny Larson MD Chest X-Ray 08/14/17 0000 Signed Impressions: Service Date/Time: August 16:15 - CONCLUSION: Probable skin fold overlapping the left upper chest and slight bibasilar atelectasis. Johnny Larson MD Procedures 08/14/17-IVC filter placement by IR Patient/Family Conference Family Conference Location: Bedside Issues Discussed: With at bedside, she recalled this examiner and palliative from prior interaction in June,:, Discussion included the following: * Palliative care role, purpose, approach * Additional medical, psychosocial, and spiritual history * Patients general health, functional status, and cognitive changes in the months leading up to the current hospitalization * Patient/family understanding of the current medical problems * Patient/family understanding of prognosis * Patients goals of care as best understood from advance directives and/or conversations and/or values * Current medical treatment options and benefits/burdens of those options * Likely scenarios comparing ongoing aggressive care with a transition to comfort measures only-review of hospice role, services * CODE STATUS-she affirms DNR * Questions answered to the best of my ability * Palliative care contact information provided She details that during his recent recurrent hospitalizations he has gotten increasingly weaker and more debilitated she sees him each time leave the hospital less well. She does feel during rehabilitation most recently he was actually doing pretty well;she indicates he would participate with PT though He essentially was limited to range of motion in the bed and sitting at the bedside , he still was unable to stand and hold his own weight. He was minimally physically active on his own due to weakness. He was able to move himself around in bed. His appetite has been poor for the past weeks she attributes this to him not liking the soft and pured foods. He has not had any abdominal complaints or issues. He has had chronic ongoing pain to his right heel. Review of current conditions, diagnostics and pending workup/treatments. She seems to have a fair though very simple understanding of conditions and treatments in place. Review of ongoing risk for further complications and ongoing weakness. She seems to understand this. Further gently explore with her that if the patient continues to have ongoing medical issues and he does not desire further invasive measures and recurrent hospitalizations then they may want hospice to ensure comfort and provide support at end-of-life. She endorses that the patient doesn't want to suffer, and that she does not want him to suffer, and that if they see he gets to a point where his conditions aren 't treatable then they will elect hospice. She wishes to continue treatments currently in place, and will have ongoing discussions with her sons who are coming in town, and medical team members during current hospital course Assessment and Plan Disease Oriented Problem List: (1) DVT (deep venous thrombosis) (2) GI bleed (3) COPD (chronic obstructive pulmonary disease) (4) HTN (hypertension) (5) Diabetes mellitus (6) CKD (chronic kidney disease), stage III (7) Iron deficiency anemia (8) Cardiomyopathy (9) ALEJANDRA (obstructive sleep apnea) (10) Acute kidney injury (11) CML (chronic myelocytic leukemia) (12) GERD (gastroesophageal reflux disease) Symptom Scale: (1) Weakness 0-10 Scale: Unable to quantify (2) Pain 0-10 Scale: Unable to quantify Pertinent Non-Medical Issues Psychosocial:lives at home with his of 61 years. Originally from [place] moved to [place] in the late . His adult children and grandchildren still reside in [place]. Retired from [employer]. 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 Ethical issues impacting care: Important Contacts Jazzy Tabares [phone] . Prognosis Recent admission GI distention and ileus. + pleural effusion, had increased FiO2 requirements. Underlying COPD. prolonged hospitalization, limited participation w PT. D/c to SNF 07/29. Pt presenting this admission for DVT, + GI bleed. GI workup pending. Unable to anticoagulate secondary to GI bleed. Patient very debilitated, weak. Patient is very high risk for further complications and setbacks and decline secondary to his advanced age, limited desire to participate, and multiple medical issues. Code Status: No Code Plan * Legal decision maker:Patient is lethargic, poor historian at times, ; likely would best be supported by shared decision-making by either his or whomever is designated healthcare surrogate. * Goals: Met with today bedside. She endorses that the patient doesn't want to suffer, and that she does not want him to suffer, and that if they see he gets to a point where his conditions aren't treatable then they will elect hospice. She wishes to continue treatments currently in place, and will have ongoing discussions with her sons who are coming in town, and medical team members during current hospital course. * CODE STATUS: DNR * SYMPTOMS: --Pain-has endorse ongoing pain to left heel; podiatry consult pending. does have 0.2mg dilaudid available, used x1 ,effecitve. Cautious use of opiates 2/2 lethargy, goals aggressive. --Weakness/debility-pt with multiple chronic medical conditions. Recent prolonged hospital course and discharge to SNF. He was working with PT though limited physical ability. Likely to restore significant strength or mobility at this point. should continue OT, PT to maintain current functional level. Palliative care will continue to follow during hospital course as condition evolves, to assist patient/decision-maker with understanding of medical conditions, weighing benefits/burdens of treatment options, for clarification of goals of treatment. Additionally will assist with any symptoms of palliative concern Time Spent Total Floor Time (mins): 45 (Chart review, PE, exam, discussed with nurse, discussed with family) Thank you for the opportunity to participate in the care of Mr. Tabares. Attestation To help prompt me to consider important information that might be impacting today's encounter and assessment, information from prior notes written by myself or my colleagues may have been "brought forward" into today's note. My signature on this note, however, is an attestation that I personally performed the exam, history, and/or decision-making noted today, and, unless otherwise indicated, the interactions with patient, family, and staff as well as the review of records all occurred today. I also attest that the listed assessment and stated plan reflect my best clinical judgment today based on the combination of historical information, prior notes, and today's exam/ interactions. When time spent is documented, it refers only to time spent today by the signer, or if indicated, combined time spent today by collaborating physician/nurse practitioner. Rashmi Collazo Aug 14, 2017 18:24
[2017-08-14] MEDS: RESP: ALBUTEROL 2.5 MG/IPRATROPIUM 0.5 MG NEB (SCH) NEB (20:26)
[2017-08-15] VITALS (8 sets, daily range): BP systolic 74–100; BP diastolic 42–62; PULSE 74–101; RESP 16–18; TEMP 96.3–98.7; O2SAT 92–98
[2017-08-15] MEDS ORDERED: LACTATED RINGER'S 1000 ML IV PRN (01:15)
[2017-08-15] MEDS ORDERED: SODIUM CHLORID 0.9% 500 ML IV PRN (01:15)
[2017-08-15 08:06] LABS: BICARBONATE 25.3 MEQ/L (21.0-32.0); CALCIUM 6.6 MG/DL (8.5-10.1); CREATININE 2.53 MG/DL (0.60-1.30)
[2017-08-15 08:09] LABS: HEMATOCRIT 26.6 % (39.0-51.0); MEAN CELL VOLUME 90.6 FL (80.0-100.0); MEAN CORPUSCULAR HEMOGLOBIN 30.5 PG (27.0-34.0); MEAN CORPUSCULAR HGB CONC 33.7 % (32.0-36.0); MEAN PLATELET VOLUME 8.4 FL (7.0-11.0); PLATELET COUNT 126 TH/MM3 (150-450); RED BLOOD COUNT 2.94 MIL/MM3 (4.50-5.90); RED CELL DISTRIBUTION WIDTH 17.2 % (11.6-17.2); WHITE BLOOD COUNT 14.2 TH/MM3 (4.0-11.0)
[2017-08-15 08:30] LABS: CALCIUM-PROTEIN CORRECTED 7.8 MG/DL (8.5-10.1); TOTAL PROTEIN 4.8 GM/DL (6.4-8.2)
[2017-08-15] MEDS ORDERED: CALCIUM GLUCONATE INJ 1 GM in SODIUM CHLORIDE 0.9% INJ 100 ML IV ONE (08:30)
[2017-08-15] MEDS: RESP: ALBUTEROL 2.5 MG/IPRATROPIUM 0.5 MG NEB (SCH) NEB ×3 (08:38→19:05)
[2017-08-15] MEDS: FUROSEMIDE 20 MG/2 ML VIAL IV PUSH SCH ×2 (09:00→18:00)
[2017-08-15] MEDS ORDERED: SODIUM CHLOR 0.9% 250 ML INJ 250 ML IV ONE ×3 (10:15→15:00)
[2017-08-15] MEDS ORDERED: DO NOT ADM ANY ANTICOAGULANT DRUGS PRN (11:48)
[2017-08-15] MEDS ORDERED: ePHEDrine/NS 25 MG/5 ML SYRINGE IV ONE (12:00)
[2017-08-15] MEDS ORDERED: PROPOFOL 200 MG/20 ML AMP IV ONE (12:00)
[2017-08-15] MEDS ORDERED: PHENYLEPH/NS 1000 MCG/10 ML SYR IV ONE (12:00)
[2017-08-15 14:02] LABS: AMORPHOUS SEDIMENT, URINE FEW; BACTERIA, URINE MANY /hpf; BLOOD, URINE TRACE (NEG); GLUCOSE,URINE NEG (NEG); HYALINE CAST, URINE 43 /lpf (RARE); KETONE, URINE NEG (NEG); MUCUS URINE FEW /lpf (OCC); NITRITE,URINE NEG (NEG); PH, URINE 5.5 (5.0-8.5); SQUAMOUS EPITHELIAL CELL URINE <1 /hpf (0-5); URINE COLOR DARK-YELLOW (YELLW/STRAW); URINE LEUKOCYTE ESTERASE LARGE (NEG)
[2017-08-15 14:05] LABS: BILIRUBIN, URINE NEG (NEG)
--- NOTE | 2017-08-15 14:48 | PD.CONS ---
History of Present Illness Service Infectious Disease Consult Requested By Dr Dinh Kemp Reason for Consult Evaluate patient with hypotension, and leukocytosis Primary Care Physician Non-Staff Diagnoses: History of Present Illness Patient seen and examined. Records reviewed. Patient is an 82 year old male, came from SNF, brought to hospital after he had an abnormal venous doppler results. He was recently hospitalized at [facility] Jun 24-Jul 24 and was D/C to SNF. At the DC he was noted to have swelling BLE and had venous doppler which came back (+) for DVT. He also has had vomiting x 2 days in the DC, and some hematemesis. GI is evaluating patient. He underwent placement of IVC filter. Since admission, he has had problem with hypotension and tachycardia. He is afebrile. His WBC is elevated. He complaints of pain in his R foot, which reportedly has been present since May 2018. He denies SOB, cough or congestion. No chest pain. NO vomiting now. Voiding ok, no dysuria. CXR is ok. UA has pyuria. Pain control has been a problem due to his hypotension. Palliative medicine is evaluating patient. Infectious Disease consultation has been requested to evaluate patient for possible sepsis. Review of Systems Constitutional: DENIES: Fever, Chills Eyes: DENIES: Eye pain Ears, nose, mouth, throat: DENIES: Nasal discharge, Oral lesions, Throat pain, Ear Pain Respiratory: DENIES: Cough, Sputum production, Shortness of breath Cardiovascular: COMPLAINS OF: Lower Extremity Edema, DENIES: Chest pain Gastrointestinal: DENIES: Abdominal pain, Nausea, Difficulty Swallowing Genitourinary: DENIES: Dysuria Musculoskeletal: COMPLAINS OF: Joint pain, Joint Swelling Integumentary: DENIES: Rash Neurologic: DENIES: Headache Psychiatric: COMPLAINS OF: Confusion Past Family Social History Allergies: Coded Allergies: No Known Allergies (Verified , 09/19/15) Past Medical History HTN DM CAD s/p IN COPD on home oxygen CKD CML Thrombocytopenia Past Surgical History Lung biopsy Pacemaker placement Heart cath Knee operation Nose surgery Ear surgery Active Ordered Medications Current Medications Medications (Trade) Dose Ordered Sig/Sunil Route Start Time Stop Time Status Last Admin (NS Flush) 2 ml UNSCH PRN IV FLUSH 08/13/17 16:45 (NS Flush) 2 ml BID IV FLUSH 08/13/17 21:00 08/13/17 19:49 (Narcan Inj) 0.4 mg UNSCH PRN IV PUSH 08/13/17 16:45 Pantoprazole Sodium 80 mg/ Sodium Chloride 100 ml @ 10 mls/hr Q10H IV 08/13/17 21:32 08/14/17 21:33 (Duoneb Neb) 1 ampule QID NEB NEB 08/14/17 20:00 08/15/17 08:38 (Lasix Inj) 20 mg BID@,18 IV PUSH 08/15/17 09:00 (Roxicodone Intensol Liq) 5 mg Q6H PRN PO 08/14/17 21:15 Lactated Ringer's 1,000 ml @ 30 mls/hr Q24H PRN IV 08/15/17 01:15 08/18/17 01:14 08/15/17 09:50 Sodium Chloride 500 ml @ 30 mls/hr [id number] PRN IV 08/15/17 01:15 08/18/17 01:14 Miscellaneous Information ALL NURSING DEPARTME... UNSCH PRN .XX 08/15/17 11:48 08/16/17 11:47 Sodium Chloride 250 ml @ 250 mls/hr BOLUS ONCE IV 08/15/17 13:30 08/15/17 14:29 Family History Non-contributory to current ID problem Social History Used to smoke , quit 1993 Used to drink etoh heavily, quit in 1993 No drugs Came from SNF Physical Exam Vital Signs Vital Signs Date Time Temp Pulse Resp B/P (MAP) Pulse Ox O2 Delivery O2 Flow Rate FiO2 08/15/17 12:00 97.6 83 16 78/52 (61) 98 08/15/17 11:50 97.9 79 20 73/45 (54) 93 08/15/17 08:39 Nasal Cannula 3.00 08/15/17 08:00 98.7 84 17 74/60 (65) 94 08/15/17 04:00 96.9 74 16 100/42 (61) 08/15/17 00:00 96.4 101 16 100/52 (68) 92 08/14/17 20:30 92 Nasal Cannula 3.00 08/14/17 20:00 97.6 91 16 106/59 (75) 08/14/17 16:00 97.3 90 20 92/59 (70) 82 Physical Exam GENERAL: Patient is an obese, well-developed CM, awake and alert, not in respiratory distress. Looks chronically ill appearing SKIN: Cool and dry. Poor turgor, some edema in hands and feet. Has purpuric rash in his upper chest. HEAD: Atraumatic. Normocephalic. No temporal wasting, or tenderness. EYES: [place] conjunctiva. No petechia or hemorrhage. Pupils equal, round and reactive to light. Extraocular movements full and intact. No scleral icterus. No injection or drainage. EARS, NOSE AND THROAT: Nose without bleeding or purulent nasal discharge. No sinus tenderness. Dry oral mucosa, wears upper dentures. No exudate. No oral thrush. NECK: Trachea midline. Supple and not tender, no meningeal signs CARDIOVASCULAR: Regular rate and rhythm. No murmurs, rubs or gallops heard RESPIRATORY: Clear to auscultation. Breath sounds equal bilaterally. No rales , wheezing or rhonchi. Decreased breath sounds at the bases ABDOMEN: Soft, non-tender, nondistended. Bowel sounds present and normoactive. No guarding. No rebound. No organomegaly. EXTREMITIES: No clubbing, cyanosis. Has edema hands and feet. Has more edema in LLE than in RLE. C/O pain R foot, foot is warm, not cold, no mottling , no open wound. NEUROLOGICAL: Awake and alert. Cranial nerves grossly intact. Motor grossly within normal limits. PSYCHIATRIC: cooperative. LINE: No evidence of infection Laboratory Laboratory Tests Test 08/14/17 16:05 08/15/17 06:11 08/15/17 08:45 08/15/17 13:00 Blood Gas Puncture Site RT RADIAL Blood Gas Patient Temperature 98.6 Blood Gas HCO3 29 Blood Gas Base Excess 5.2 Blood Gas Oxygen Saturation 97 Arterial Blood pH 7.48 Arterial Blood Partial Pressure CO2 39 Arterial Blood Partial Pressure O2 451 Arterial Blood Oxygen Content 13.7 Arterial Blood Carboxyhemoglobin 0.0 Arterial Blood Methemoglobin 0.7 Blood Gas Hemoglobin 9.2 Oxygen Delivery Device Non-Rebreathing Mask Blood Gas Liter Flow 15 Blood Gas Inspired Oxygen 100 White Blood Count 14.2 Red Blood Count 2.94 Hemoglobin 9.0 Hematocrit 26.6 Mean Corpuscular Volume 90.6 Mean Corpuscular Hemoglobin 30.5 Mean Corpuscular Hemoglobin Concent 33.7 Red Cell Distribution Width 17.2 Platelet Count 126 Mean Platelet Volume 8.4 Hematology Comments Blood Urea Nitrogen 45 Creatinine 2.53 Random Glucose 149 Total Protein 4.8 Calcium Level 6.6 Sodium Level 146 Potassium Level 3.6 Chloride Level 108 Carbon Dioxide Level 25.3 Anion Gap 13 Estimat Glomerular Filtration Rate 25 Protein Corrected Calcium 7.8 Lactic Acid Level 2.4 Urine Color DARK-YELLOW Urine Turbidity HAZY Urine pH 5.5 Urine Specific [place] 1.018 Urine Protein 30 Urine Glucose (UA) NEG Urine Ketones NEG Urine Occult Blood TRACE Urine Nitrite NEG Urine Bilirubin NEG Urine Urobilinogen 4.0 Urine Leukocyte Esterase LARGE Urine RBC 2 Urine WBC 56 Urine Squamous Epithelial Cells <1 Urine Amorphous Sediment FEW Urine Bacteria MANY Urine Hyaline Casts 43 Urine Mucus FEW Microscopic Urinalysis Comment CULTURE INDICATED Date/Time Source Procedure Growth Status 08/15/17 13:00 Urine Clean Catch Urine Culture Pending Received Result Diagram: 08/15/17 0611 08/15/17 0611 Imaging RADIOLOGY STUDIES/FILMS REVIEWED Lower Extremity Ultrasound 08/14/17 0000 Signed Impressions: Service Date/Time: August 10:15 - CONCLUSION: 1. Near-occlusive deep venous thrombosis within the left proximal superficial femoral vein and nonocclusive deep venous thrombus within the left common femoral and peroneal veins. 2. Occlusive deep venous thrombus within the right posterior tibial veins. Max Briggs MD IVC Filter Placement X-Ray 08/14/17 0000 Signed Impressions: Service Date/Time: August 12:20 - CONCLUSION: Uncomplicated inferior vena cava filter placement as above. Ajay Bardales MD Foot X-Ray 08/14/17 0000 Signed Impressions: Service Date/Time: August 13:01 - CONCLUSION: No definite fracture is seen for technique. Johnny Larson MD Chest X-Ray 08/14/17 0000 Signed Impressions: Service Date/Time: August 16:15 - CONCLUSION: Probable skin fold overlapping the left upper chest and slight bibasilar atelectasis. Johnny Larson MD Assessment and Plan Assessment and Plan IMPRESSION Hypotension, with leukocytosis, elevated lactic acid, ?infection - has (+) UA, possibly UTI - ?due to [place] DVT, high risk for PE Worsening renal funsion, prob due to sepsis, hypotension R foot pain, etiology?, nothing evident on exam, does not feel ischemic, ? neuropathy [place] DVT, S/P IVC filter GIB RECOMMENDATION Start Abx for coverage Bladder scan to evaluate if he is retaining Palliative medicine evaluating patient His overall prognosis appear poor with all his underlying problems and developing issues Follow C/S Monitor progress I will be off Aug 16- Other ID MD covering in my absence Discussed Condition With D/W Norma Llanos MD Aug 15, 2017 14:48
[2017-08-15] MEDS ORDERED: MORPHINE SULFATE 2 MG/ML INJ IV PUSH ONE (15:00)
--- NOTE | 2017-08-15 15:34 | PD.CONS ---
HPI Service Nephrology Consult Requested By Primary Care Physician Non-Staff History of Present Illness We were consulted to evaluate this patient for Acute on CKD. He is hypotensive, has been NPO for some time for GI bleeding. Hx of CML with multiple recent admissions. He is also frequently hypotensive and in pain; the is requesting to meet with hospice. He is ordered post void bladder scan, IVF, and is not on antihypertensives. We will not evaluate the patient per the 's request. Please call us if needed. Past Family Social History Allergies: Coded Allergies: No Known Allergies (Verified , 09/19/15) Physical Exam Vital Signs Vital Signs Date Time Temp Pulse Resp B/P (MAP) Pulse Ox O2 Delivery O2 Flow Rate FiO2 08/15/17 12:00 97.6 83 16 78/52 (61) 98 08/15/17 11:50 97.9 79 20 73/45 (54) 93 08/15/17 08:39 Nasal Cannula 3.00 08/15/17 08:00 98.7 84 17 74/60 (65) 94 08/15/17 04:00 96.9 74 16 100/42 (61) 08/15/17 00:00 96.4 101 16 100/52 (68) 92 08/14/17 20:30 92 Nasal Cannula 3.00 08/14/17 20:00 97.6 91 16 106/59 (75) 08/14/17 16:00 97.3 90 20 92/59 (70) 82 Laboratory Laboratory Tests Test 08/14/17 16:05 08/15/17 06:11 08/15/17 08:45 08/15/17 13:00 Blood Gas Puncture Site RT RADIAL Blood Gas Patient Temperature 98.6 Blood Gas HCO3 29 Blood Gas Base Excess 5.2 Blood Gas Oxygen Saturation 97 Arterial Blood pH 7.48 Arterial Blood Partial Pressure CO2 39 Arterial Blood Partial Pressure O2 451 Arterial Blood Oxygen Content 13.7 Arterial Blood Carboxyhemoglobin 0.0 Arterial Blood Methemoglobin 0.7 Blood Gas Hemoglobin 9.2 Oxygen Delivery Device Non-Rebreathing Mask Blood Gas Liter Flow 15 Blood Gas Inspired Oxygen 100 White Blood Count 14.2 Red Blood Count 2.94 Hemoglobin 9.0 Hematocrit 26.6 Mean Corpuscular Volume 90.6 Mean Corpuscular Hemoglobin 30.5 Mean Corpuscular Hemoglobin Concent 33.7 Red Cell Distribution Width 17.2 Platelet Count 126 Mean Platelet Volume 8.4 Hematology Comments Blood Urea Nitrogen 45 Creatinine 2.53 Random Glucose 149 Total Protein 4.8 Calcium Level 6.6 Sodium Level 146 Potassium Level 3.6 Chloride Level 108 Carbon Dioxide Level 25.3 Anion Gap 13 Estimat Glomerular Filtration Rate 25 Protein Corrected Calcium 7.8 Lactic Acid Level 2.4 Urine Color DARK-YELLOW Urine Turbidity HAZY Urine pH 5.5 Urine Specific [place] 1.018 Urine Protein 30 Urine Glucose (UA) NEG Urine Ketones NEG Urine Occult Blood TRACE Urine Nitrite NEG Urine Bilirubin NEG Urine Urobilinogen 4.0 Urine Leukocyte Esterase LARGE Urine RBC 2 Urine WBC 56 Urine Squamous Epithelial Cells <1 Urine Amorphous Sediment FEW Urine Bacteria MANY Urine Hyaline Casts 43 Urine Mucus FEW Microscopic Urinalysis Comment CULTURE INDICATED Date/Time Source Procedure Growth Status 08/15/17 13:00 Urine Clean Catch Urine Culture Pending Received Result Diagram: 08/15/17 0611 08/15/17 0611 Mar Wylie Aug 15, 2017 15:34
[2017-08-15] MEDS: SODIUM CHLORIDE 0.9% FLUSH 10 ML FLUSH IV FLUSH SCH ×2 (15:36→21:25)
--- NOTE | 2017-08-15 16:08 | HHI.PR ---
Subjective Remarks Patient seen after EGD Per nurse EGD was negative. Patient fully alert and stated that his right foot her. Patient stated that he wants pain medication. I explained to patient that she is very sick and that his blood pressure is low and that I have to be careful pain medication since why the side effects can worsen his blood pressure make it lower. I told patient that his blood pressure is very low aware if it goes any lower his body cannot function and will not survive at that blood pressure. Patient stated that he does not care about the other issue and only want to focus on his pain. I explained to patient his diagnosis , prognosis and management stated that he is a candidate for hospice and hospice will focus on that. Patient agrees with hospice. I then spoke to his and his son Esteban over the phone in regards to the updates and in regards to patient's wishes. Patient's and son Esteban agrees with his father's wishes and stated that they understand and agree with hospice. Otherwise patient denies any shortness of breathing or chest pain. He remains afebrile. Objective Vitals Vital Signs Date Time Temp Pulse Resp B/P (MAP) Pulse Ox O2 Delivery O2 Flow Rate FiO2 08/15/17 15:34 98 Nasal Cannula 3.00 08/15/17 12:00 97.6 83 16 78/52 (61) 98 08/15/17 11:50 97.9 79 20 73/45 (54) 93 08/15/17 08:39 Nasal Cannula 3.00 08/15/17 08:00 98.7 84 17 74/60 (65) 94 08/15/17 04:00 96.9 74 16 100/42 (61) 08/15/17 00:00 96.4 101 16 100/52 (68) 92 08/14/17 20:30 92 Nasal Cannula 3.00 08/14/17 20:00 97.6 91 16 106/59 (75) 08/14/17 16:00 97.3 90 20 92/59 (70) 82 I/O 08/14/17 08/14/17 08/14/17 08/15/17 08/15/17 08/15/17 06:59 14:59 22:59 06:59 14:59 22:59 Intake Total 639 ml 250 ml 1654 ml 250 ml Output Total 550 ml 300 ml 500 ml Balance 89 ml 250 ml -300 ml 1154 ml 250 ml Intake Oral 0 ml 0 ml IV Total 639 ml 250 ml 1654 ml Other 250 ml Output Urine Total 550 ml 300 ml 500 ml # Bowel Movements 0 1 Result Diagram: 08/15/1761008/15/17 06 Objective Remarks GENERAL: in NAD but looks chronically ill. SKIN: Sacral wounds noted with wound care nurse present. He also has some skin tears on his shoulder. Bilateral edema and and lower extremity edema HEAD: Normocephalic. EYES: No scleral icterus. No injection or drainage. NECK: Supple, trachea midline. No JVD or lymphadenopathy. CARDIOVASCULAR: Regular rate and rhythm without murmurs, gallops, or rubs. RESPIRATORY: Breath sounds equal bilaterally. No accessory muscle use. GASTROINTESTINAL: Abdomen soft, non-tender, nondistended. MUSCULOSKELETAL: Right foot with an eschar on heel. There is tenderness palpation. He seems to be sensitive to touch in this area. No erythema noted. Medications and IVs Current Medications Hydromorphone HCl (Dilaudid Pf Inj) 0.5 mg ONCE ONCE IVS Last administered on 08/13/17at 15:34; Start 08/13/17 at 15:15; Stop 08/13/17 at 15:16; Status DC Sodium Chloride (NS Flush) 2 ml UNSCH PRN IV FLUSH FLUSH AFTER USING IV ACCESS ; Start 08/13/17 at 16:45 Sodium Chloride (NS Flush) 2 ml BID IV FLUSH Last administered on 08/15/17at 15: 36; Start 08/13/17 at 21:00 Naloxone HCl (Narcan Inj) 0.4 mg UNSCH PRN IV PUSH SEE LABEL COMMENTS; Start at 16:45 Potassium Chloride (KCl) 40 meq ONCE ONCE PO Last administered on 08/13/17at 22: 45; Start 08/13/17 at 20:30; Stop 08/13/17 at 20:32; Status DC Calcium Gluconate 1 gm/Dextrose 110 ml @ 110 mls/hr ONCE ONCE IV Last administered on 08/13/17at 23:03; Start 08/13/17 at 21:00; Stop 08/13/17 at 21:59; Status DC Hydromorphone HCl (Dilaudid Pf Inj) 0.2 mg Q4H PRN IV PUSH pain >5 Last administered on 08/14/17 10:51; Start 08/13/17 at 20:30; Stop 08/14/17 at 21:10; Status DC Pantoprazole Sodium 80 mg/ Sodium Chloride 35 ml @ 420 mls/hr Q5M ONCE IV Last administered on 08/13/17at 23:28; Start 08/13/17 at 21:32; Stop 08/13/17 at 21: 36; Status DC Pantoprazole Sodium 80 mg/ Sodium Chloride 100 ml @ 10 mls/hr Q10H IV Last administered on 08/14/17at 21:33; Start 08/13/17 at 21:32; Stop 08/15/17 at 15:13; Status DC Dextrose/Sodium Chloride 1,000 ml @ 84 mls/hr [id number] IV Last administered on 08/14/17at 18:42; Start 08/13/17 at 20:45; Stop 08/14/17 at 21:05; Status DC Dextrose (D50w (Vial) Inj) 50 ml UNSCH PRN IV PUSH HYPOGLYCEMIA-SEE COMMENTS; Start 08/13/17 at 20:45; Stop 08/15/17 at 14:05; Status DC Glucagon (Glucagon Inj) 1 mg UNSCH PRN OTHER HYPOGLYCEMIA-SEE COMMENTS; Start 08/13/17 at 20:45; Stop 08/15/17 at 14:05; Status DC Sodium Chloride 500 ml @ 500 mls/hr BOLUS ONCE IV Last administered on at 10:00; Start 08/14/17 at 10:00; Stop 08/14/17 at 10:59; Status DC Potassium Bicarb/ Potassium Chloride (K-Lyte Cl Eff) 50 meq ONCE ONCE PO Last administered on 08/14/17at 12:30; Start 08/14/17 at 10:00; Stop 08/14/17 at 10: 01; Status DC Fentanyl Citrate (fentaNYL INJ) 200 mcg STK-MED ONCE .ROUTE Last administered on 08/14/17at 11:35; Start 08/14/17 at 11:18; Stop 08/14/17 at 11:19; Status DC Iohexol (Omnipaque 350 Inj) 15 ml STK-MED ONCE IVCONTRAST Last administered on 08/14/17at 12:12; Start 08/14/17 at 12:12; Stop 08/14/17 at 12:13; Status DC Furosemide (Lasix Inj) 40 mg BID@,18 IV PUSH ; Start 08/14/17 at 18:00; Stop at 18:00; Status DC Albuterol/ Ipratropium (Duoneb Neb) 1 ampule QID NEB NEB Last administered on 08/15/17at 15:34; Start 08/14/17 at 20:00 Furosemide (Lasix Inj) 20 mg ONCE ONCE IV PUSH Last administered on 08/14/17at 18:38; Start 08/14/17 at 17:30; Stop 08/14/17 at 18:02; Status DC Furosemide (Lasix Inj) 20 mg BID@,18 IV PUSH ; Start 08/15/17 at 09:00 Oxycodone HCl (Roxicodone Intensol Liq) 5 mg Q6H PRN PO pain >5; Start 08/14/17 at 21:15 Lactated Ringer's 1,000 ml @ 30 mls/hr Q24H PRN IV SEE LABEL COMMENTS Last administered on 08/15/17at 09:50; Start 08/15/17 at 01:15; Stop 08/18/17 at 01:14 Sodium Chloride 500 ml @ 30 mls/hr [id number] PRN IV SEE LABEL COMMENTS; Start 08/15/17 at 01:15; Stop 08/18/17 at 01:14 Calcium Gluconate 1 gm/Sodium Chloride 110 ml @ 110 mls/hr ONCE ONCE IV Last administered on 08/15/17at 15:36; Start 08/15/17 at 08:30; Stop 08/15/17 at 09:29; Status DC Sodium Chloride 250 ml @ 250 mls/hr BOLUS ONCE IV ; Start 08/15/17 at 10:15; Stop 08/15/17 at 11:14; Status DC Miscellaneous Information ALL NURSING DEPARTME... UNSCH PRN .XX SEE LABEL COMMENTS; Start 08/15/17 at 11:48; Stop 08/16/17 at 11:47 Sodium Chloride 250 ml @ 250 mls/hr BOLUS ONCE IV ; Start 08/15/17 at 13:30; Stop 08/15/17 at 14:29; Status DC Piperacillin Sod/ Tazobactam Sod 50 ml @ 100 mls/hr Q6H IV ; Start 08/15/17 at 16:00 Sodium Chloride 250 ml @ 250 mls/hr BOLUS ONCE IV Last administered on at 15:23; Start 08/15/17 at 15:00; Stop 08/15/17 at 15:59 Morphine Sulfate (Morphine Inj) 1 mg ONCE ONCE IV PUSH ; Start 08/15/17 at 15:00 ; Stop 08/15/17 at 15:01; Status DC A/P Assessment and Plan 82-year-old male history of DVT on anticoagulation who presented with GI bleed GI bleed -Anticoagulation held secondary to active GI bleed. He was on Lovenox and Coumadin at the half-way. Positive guaiac in the ER. -Patient hemoglobin was stable during his hospital course. He had EGD done today in which the nurse stated that she was told it was negative. Still pending report. -Since no active GI bleed will discontinue protonic strip. Hypotension -Patient has been hypotensive during hospital course but stable. No tachycardia. -Chest x-ray negative for any infectious source. Positive leukocytosis that has been stable. UA was ordered yesterday and was not done. I spoke to nurse and charge nurse in regards to this and it was following family afternoon. UA suggest possible UTI. -Patient was started on Zosyn. -Infectious disease consulted appreciate recommendations. Sepsis -See treatment as above. Lactic acid mildly elevated at 2.5. -Need to be cautious with IV fluids. Patient is edematous but he has also dry. BNP elevated at 500. Will lightly bolus patient. Will need to be cautious since patient has coronary artery disease and CHF and has elevated BNP and also edematous. He is a DO NOT RESUSCITATE. Left lower extremity deep femoral vein and popliteal vein thrombosis -Patient was on Lovenox and Coumadin which was held secondary to GI bleed. Sample Cutter consulted. -Status post IVC filter placed on 08/14/2017. Recent history of thrombocytopenia in last admission. -Gleevec held secondary to thrombocytopenia but that was restarted at the rehabilitation center. Platelet at the moment is 163,000 and stable. Hypokalemia/Hypocalcemia -Replenish as needed. Right foot pain since June 05, 2017 from a fall. -X-ray has been negative. Caul Puller consulted. -Blood pressure too low to give pain medication, but patient wants hospice and everyone is in agreement with hospice. We will give morphine. Discussed case with case management and calling hospice in regards to my patient. HTN/diabetes/s/p ppm/AICD/CAD s/p FL/CHF latest echo June 26, 2017 reviewed. 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 Otherwise home medication resumed. DVT prophylaxis -Patient has a IVC filter placed. Later during the hospital course nurse was not able to get a pulse ox and systolic blood pressure was in the 80s. Clinically patient didn't show any signs to radiation. HEENT showed no signs or shortness of breathing. He did not complain shortness of breathing. Rapid response was called. ABG was done which was normal. Extremities were edematous may be secondary to edema. Will get a stat chest x-ray. Noted some scattered wheezing. Will schedule DuoNeb's. I spoke to rapid response nurse in regards to update. Patient's is at the bedside. I explained to the what was going on, prognosis, management and treatment. She understood. I will also went over CODE STATUS and agreed to continue with DO NOT RESUSCITATE. Also explained to her that he may deteriorate quickly. She stated that she understood. She wanted me to call her son in regards to his father's update. I spoke to Esteban at [phone] in regards to his father's status. All questions answered. He stated that he understood and that his father has been sick and he knows that he can deteriorate quickly and may . He had no other questions and was thankful for the call. Discharge Planning Very poor prognosis patient and family wants hospice. Discussed case with case management in calling hospice. Olivia Kemp MD Aug 15, 2017 16:08
--- NOTE | 2017-08-15 16:56 | PD.ONC.PN ---
Subjective Subjective Remarks Afebrile overnight. Patient resting in bed. Patient BP has been low today. Patient is DNR and family is considering hospice if he makes it through the night. (per at bedside. Objective Data Date Time Temp Pulse Resp B/P (MAP) Pulse Ox O2 Delivery O2 Flow Rate FiO2 08/15/17 16:00 96.3 78 18 75/49 (58) 98 08/15/17 15:34 98 Nasal Cannula 3.00 08/15/17 12:00 97.6 83 16 78/52 (61) 98 08/15/17 11:50 97.9 79 20 73/45 (54) 93 08/15/17 08:39 Nasal Cannula 3.00 08/15/17 08:00 98.7 84 17 74/60 (65) 94 08/15/17 04:00 96.9 74 16 100/42 (61) 08/15/17 00:00 96.4 101 16 100/52 (68) 92 08/14/17 20:30 92 Nasal Cannula 3.00 08/14/17 20:00 97.6 91 16 106/59 (75) 08/15/17 08/15/17 08/15/17 07:00 15:00 23:00 Intake Total 1654 ml 250 ml Output Total 500 ml Balance 1154 ml 250 ml Result Diagram: 08/15/17 0611 08/15/17 0611 Laboratory Results Laboratory Tests Test 08/15/17 06:11 08/15/17 08:45 08/15/17 13:00 White Blood Count 14.2 TH/MM3 Red Blood Count 2.94 MIL/MM3 Hemoglobin 9.0 GM/DL Hematocrit 26.6 % Mean Corpuscular Volume 90.6 FL Mean Corpuscular Hemoglobin 30.5 PG Mean Corpuscular Hemoglobin Concent 33.7 % Red Cell Distribution Width 17.2 % Platelet Count 126 TH/MM3 Mean Platelet Volume 8.4 FL Hematology Comments Blood Urea Nitrogen 45 MG/DL Creatinine 2.53 MG/DL Random Glucose 149 MG/DL Total Protein 4.8 GM/DL Calcium Level 6.6 MG/DL Sodium Level 146 MEQ/L Potassium Level 3.6 MEQ/L Chloride Level 108 MEQ/L Carbon Dioxide Level 25.3 MEQ/L Anion Gap 13 MEQ/L Estimat Glomerular Filtration Rate 25 ML/MIN Protein Corrected Calcium 7.8 MG/DL Lactic Acid Level 2.4 mmol/L Urine Color DARK-YELLOW Urine Turbidity HAZY Urine pH 5.5 Urine Specific [place] 1.018 Urine Protein 30 mg/dL Urine Glucose (UA) NEG mg/dL Urine Ketones NEG mg/dL Urine Occult Blood TRACE Urine Nitrite NEG Urine Bilirubin NEG Urine Urobilinogen 4.0 MG/DL Urine Leukocyte Esterase LARGE Urine RBC 2 /hpf Urine WBC 56 /hpf Urine Squamous Epithelial Cells <1 /hpf Urine Amorphous Sediment FEW Urine Bacteria MANY /hpf Urine Hyaline Casts 43 /lpf Urine Mucus FEW /lpf Microscopic Urinalysis Comment CULTURE INDICATED Culture Results Microbiology Date/Time Source Procedure Growth Status 08/15/17 13:00 Urine Clean Catch Urine Culture Pending Received Administered Medications Medications (Trade) Dose Ordered Sig/Sunil Route PRN Reason Start Time Stop Time Status Last Admin Dose Admin Sodium Chloride (NS Flush) 2 ml BID IV FLUSH 08/13/17 21:00 08/15/17 15:36 Albuterol/ Ipratropium (Duoneb Neb) 1 ampule QID NEB NEB 08/14/17 20:00 08/15/17 15:34 Lactated Ringer's 1,000 ml @ 30 mls/hr Q24H PRN IV SEE LABEL COMMENTS 08/15/17 01:15 08/18/17 01:14 08/15/17 09:50 Objective Remarks GENERAL: chronically ill male, lying supine in bed resting. SKIN: Warm and dry. scattered bruising on extremities. HEAD: Normocephalic. EYES: No injection or drainage. NECK: Supple, trachea midline. CARDIOVASCULAR: +S1/S2 RESPIRATORY: anterior yates with scattered rhonchi. GASTROINTESTINAL: Abdomen with mild distension. EXTREMITIES: No cyanosis NEUROLOGICAL: lethargic but awake, following commands, answering questions Assessment/Plan Problem List: (1) DVT (deep venous thrombosis) ICD Codes: I82.409 - Acute embolism and thrombosis of unspecified deep veins of unspecified lower extremity Status: Acute Plan: -- was given a dose of Lovenox and coumadin at the rehabilitation center and then sent to emergency room where his stool guaiac test was positive. --IVC filter placement. --underwent EGD, 08/15, awaiting report Assessment 82y/o male with new deep venous thrombosis in the setting of gastrointestinal bleed. 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 Abdominal aortic aneurysm. Chronic obstructive pulmonary disease. Diabetes mellitus. diverticulosis. Hiatal hernia Hyperlipidemia. Hypertension. Skin squamous cell carcinoma. Kidney stones. Coronary artery disease. Plan 1. await family decision on hospice. 2. monitor CBC Attending Statement The exam, history, and the medical decision-making described in the above note were completed with the assistance of the mid-level provider. I reviewed and agree with the findings presented. I attest that I had a [id number] encounter with the patient on the same day, and personally performed and documented my assessment and findings in the medical record. Pt is very weak. No gross GI bleeding. Await possible EGD. Family is also considering hospice care. If GI w/u does not show active bleeding, can consider low dose subq heparin. Problem Qualifiers (1) DVT (deep venous thrombosis): Mira Zepeda Aug 15, 2017 16:56 John Rodriguez MD Aug 15, 2017 20:21
--- NOTE | 2017-08-15 17:29 | MB ---
cc: MARIELA WAGNER DATE OF CONSULTATION: 08/15/2017. REASON FOR CONSULTATION / CHIEF COMPLAINT: Right foot ulceration and pain. HISTORY OF PRESENT ILLNESS: Mr. Horton was seen at bedside but was slightly lethargic and hypotensive and unable to give much information. Most information was obtained from the history and physical. He has a large heel eschar on the left posterior aspect of the right heel and complains of pain which limits his ambulation. He currently admitted for sepsis and GI bleed. PAST MEDICAL HISTORY: 1. Hypertension. 2. Diabetes mellitus. 3. Coronary artery disease. 4. COPD. 5. Chronic kidney disease. 6. CML. 7. Thrombocytopenia. PAST SURGICAL HISTORY: 1. Lung biopsy. 2. PPM. 3. Cardiac catheterization. 4. Knee surgery. 5. Nose surgery. 6. Ear surgery. ALLERGIES: NO KNOWN DRUG ALLERGIES. FAMILY HISTORY: Noncontributory. SOCIAL HISTORY: The patient quit smoking in 1993. He was also an alcoholic until 1993. He lives at [facility] currently. He denies any illicit drug use. PHYSICAL EXAMINATION: VITAL SIGNS: At the time of evaluation, the vital signs were 96.7 temperature with a T-max of 98.5, pulse rate of 83, respiratory rate of 16, blood pressure of 78/52, pulse oximetry is 98% on three liters of air. On physical exam, the patient has nonpalpable dorsalis pedis and posterior tibial pulses. Capillary refill time is less than 3 seconds. Feet are slightly cool but dry to the touch. The left foot is unremarkable. The right foot has a full thickness posterior heel eschar 3 cm x 2.5 cm x 0. No erythema. No drainage. No malodor. Stable in appearance. LABS: White count 22.2, hemoglobin 9.0, hematocrit 26.6, platelets 126,000. INR 1.4. Sodium 146, potassium 3.6, carbon dioxide 109, carbon dioxide 25.3, BUN 45. Cultures are pending. IMAGING STUDIES: Foot x-ray is negative for any gas in the soft tissue or signs of osseous erosion. ASSESSMENT AND PLAN: 1. Right foot posterior heel eschar, no infection. - Unfortunately the patient's pain is likely due to the eschar, however, there is little intervention that I can offer. The nurses are already offloading the site to reduce pressure. The wound is stable and nonsurgical. There is a chance he may also be experiencing some ischemic pain and a vascular consult may want to be considered. - Continue to offload heels with floating heels, air mattress ordered as well. - Continue to monitor closely for any signs of infection. No dressings needed at this time. Thank you for being involved in this patient's care. If anything were to change as far as the state of the wound, please do re-consult and I would be happy to intervene if and when appropriate. Mariela LARA/ANA CRISTINA /4:23 PM /4:44 PM NICK
[2017-08-15] MEDS: PIPERACIL-TAZO 2.25 GM PREMIX 50 ML IV SCH ×2 (18:01→21:25)
--- NOTE | 2017-08-15 22:52 | EKG ---
Date Performed: 08/14/2017 Time Performed: 16:23:31 PTAGE: 82 years EKG: Sinus rhythm INTRAVENTRICULAR CONDUCTION DELAY ABNORMAL ECG PREVIOUS TRACING : 07/21/2017 03.14 Compared to prior tracing no significant change DOCTOR: Thierno Weaver Interpretating Date/Time 08/15/2017 22:52:07
[2017-08-16] VITALS (9 sets, daily range): BP systolic 69–102; BP diastolic 40–62; PULSE 72–96; RESP 15–18; TEMP 96.1–98.8; O2SAT 92–100
[2017-08-16] MEDS: oxyCODONE HCL ORAL CONC 5 MG/0.25 ML SYRINGE PO PRN ×2 (01:14→08:13)
[2017-08-16] MEDS: PIPERACIL-TAZO 2.25 GM PREMIX 50 ML IV SCH ×4 (03:54→20:10)
[2017-08-16] MEDS: FUROSEMIDE 20 MG/2 ML VIAL IV PUSH SCH ×2 (08:11→17:17)
[2017-08-16] MEDS: SODIUM CHLORIDE 0.9% FLUSH 10 ML FLUSH IV FLUSH SCH ×2 (08:14→20:10)
[2017-08-16] MEDS: RESP: ALBUTEROL 2.5 MG/IPRATROPIUM 0.5 MG NEB (SCH) NEB ×4 (08:26→19:56)
--- NOTE | 2017-08-16 09:05 | PD.CONS ---
HPI History of Present Illness This is a 82 year old male with hx CML, COPD who presented with right foot pain and reported black emesis. He was found to have DVTs. GI has been consulted for reported episode black emesis 2 d ago. Pt seen while halicat under way, pt noncontributory and not able to provide much hx. Hx obtained from EMR. He is s/p IVC filter placement. He had EGD 07/13/17 showed mild gastritis, esophagitis, bx neg for CMV/HSV. Hhrzzdbyfha30/14/17 showed polyp, colon ulcerations poss ischemic event, diverticulosis, path benign. Delayed entry, pt seen 08/14/16 @ 1600 PFSH Past Medical History Hypertension Diabetes CML since 1998, on Gleevec-BCR/ABL-positive follows w Dr Patel Migraines GERD Nephrolithiasis Obstructive sleep apnea AAA CAD s/p MS Chronic systolic heart failure, EF 15% COPD on home oxygen CKD CML thrombocytopenia Past Surgical History lung biopsy Bilateral ear tubes heart cath Left total knee nose surgery Cataract surgery AICD placement . Coded Allergies: No Known Allergies (Verified , 09/19/15) Family History lost 4 children- one from MS at 26 yo, another one from meningitis at 4 months old, 2 from cancer in their 50s --- but all of them were premature babies has 8 children total with the patient- 4 living, 4 as above Social History used to smoke , quit 1993 used to drink etoh heavily, quit in 1993 no drugs live at [facility], Review of Systems noncontributory GI Exam Vitals I&O Vital Signs Date Time Temp Pulse Resp B/P (MAP) Pulse Ox O2 Delivery O2 Flow Rate FiO2 08/16/17 08:26 93 Nasal Cannula 0.50 08/16/17 08:00 97.9 83 15 86/47 (60) 94 08/16/17 04:00 97.5 79 16 102/62 (75) 99 08/16/17 02:14 20 08/16/17 00:00 72 08/16/17 00:00 96.1 72 16 75/43 (54) 99 08/15/17 20:35 75 08/15/17 20:00 97.4 90/62 (71) 08/15/17 16:00 78 08/15/17 16:00 96.3 78 18 75/49 (58) 98 08/15/17 15:34 98 Nasal Cannula 3.00 08/15/17 12:00 97.6 83 16 78/52 (61) 98 08/15/17 11:50 97.9 79 20 73/45 (54) 93 I/O 08/15/17 08/15/17 08/15/17 08/16/17 08/16/17 08/16/17 07:00 15:00 23:00 07:00 15:00 23:00 Intake Total 1654 ml 250 ml 460 ml 0 ml Output Total 500 ml 100 ml 400 ml Balance 1154 ml 250 ml 360 ml -400 ml Intake Oral 0 ml 0 ml 0 ml 0 ml IV Total 1654 ml 460 ml Other 250 ml Output Urine Total 500 ml 400 ml Emesis 100 ml # Bowel Movements 1 2 Imaging Last Impressions Lower Extremity Ultrasound 08/14/17 0000 Signed Impressions: Service Date/Time: August 10:15 - CONCLUSION: 1. Near-occlusive deep venous thrombosis within the left proximal superficial femoral vein and nonocclusive deep venous thrombus within the left common femoral and peroneal veins. 2. Occlusive deep venous thrombus within the right posterior tibial veins. Max Briggs MD IVC Filter Placement X-Ray 08/14/17 0000 Signed Impressions: Service Date/Time: August 12:20 - CONCLUSION: Uncomplicated inferior vena cava filter placement as above. Ajay Bardales MD Foot X-Ray 08/14/17 0000 Signed Impressions: Service Date/Time: August 13:01 - CONCLUSION: No definite fracture is seen for technique. Johnny Larson MD Chest X-Ray 08/14/17 0000 Signed Impressions: Service Date/Time: August 16:15 - CONCLUSION: Probable skin fold overlapping the left upper chest and slight bibasilar atelectasis. Johnny Larson MD Laboratory Test 08/15/17 13:00 Urine Color DARK-YELLOW Urine Turbidity HAZY Urine pH 5.5 Urine Specific [place] 1.018 Urine Protein 30 mg/dL Urine Glucose (UA) NEG mg/dL Urine Ketones NEG mg/dL Urine Occult Blood TRACE Urine Nitrite NEG Urine Bilirubin NEG Urine Urobilinogen 4.0 MG/DL Urine Leukocyte Esterase LARGE Urine RBC 2 /hpf Urine WBC 56 /hpf Urine Squamous Epithelial Cells <1 /hpf Urine Amorphous Sediment FEW Urine Bacteria MANY /hpf Urine Hyaline Casts 43 /lpf Urine Mucus FEW /lpf Microscopic Urinalysis Comment CULTURE INDICATED Date/Time Source Procedure Growth Status 08/15/17 13:00 Urine Clean Catch Urine Culture Pending Received Physical Examination HEENT: normocephalic; atraumatic; no jaundice. CHEST: wheezes and rhonchi CARDIAC: RRR ABDOMEN: Soft, nondistended, nontender; no hepatosplenomegaly; bowel sounds are present in all four quadrants. EXTREMITIES: No clubbing, cyanosis, or edema. SKIN: Normal; no rash; no jaundice. 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 s/p EGD no bleeding seen. - anemia - likely multifactorial. normocytic. hgb9.4 on admission and relatively stable. 07/13/17 showed mild gastritis, esophagitis, bx neg for CMV/HSV. Hgxvlaudnhf28/14/17 showed polyp, colon ulcerations poss ischemic event, diverticulosis, path benign. - per EMR family electing hospice services PLAN - monitor labs - transfuse as needed - supportive care - GI will sign off. please reconsult if needed Pt seen by myself and Dr Barraza on 08/14/16 and this note is written on his behalf Debora Carver Aug 16, 2017 09:05
--- NOTE | 2017-08-16 09:56 | PD.ONC.PN ---
Subjective Subjective Remarks Afebrile overnight. Patient reporting pain in his right leg. Asking for pain medication. at bedside is waiting for her son to arrive. They will likely enroll patient in hospice today. Patient also would like to be able to eat a regular diet again. Objective Data Date Time Temp Pulse Resp B/P (MAP) Pulse Ox O2 Delivery O2 Flow Rate FiO2 08/16/17 08:26 93 Nasal Cannula 0.50 08/16/17 08:00 97.9 83 15 86/47 (60) 94 08/16/17 04:00 97.5 79 16 102/62 (75) 99 08/16/17 02:14 20 08/16/17 00:00 72 08/16/17 00:00 96.1 72 16 75/43 (54) 99 08/15/17 20:35 75 08/15/17 20:00 97.4 90/62 (71) 08/15/17 16:00 78 08/15/17 16:00 96.3 78 18 75/49 (58) 98 08/15/17 15:34 98 Nasal Cannula 3.00 08/15/17 12:00 97.6 83 16 78/52 (61) 98 08/15/17 11:50 97.9 79 20 73/45 (54) 93 08/16/17 08/16/17 08/16/17 07:00 15:00 23:00 Intake Total 0 ml Output Total 400 ml Balance -400 ml Result Diagram: 08/15/17 0611 08/15/17 0611 Laboratory Results Laboratory Tests Test 08/15/17 13:00 Urine Color DARK-YELLOW Urine Turbidity HAZY Urine pH 5.5 Urine Specific [place] 1.018 Urine Protein 30 mg/dL Urine Glucose (UA) NEG mg/dL Urine Ketones NEG mg/dL Urine Occult Blood TRACE Urine Nitrite NEG Urine Bilirubin NEG Urine Urobilinogen 4.0 MG/DL Urine Leukocyte Esterase LARGE Urine RBC 2 /hpf Urine WBC 56 /hpf Urine Squamous Epithelial Cells <1 /hpf Urine Amorphous Sediment FEW Urine Bacteria MANY /hpf Urine Hyaline Casts 43 /lpf Urine Mucus FEW /lpf Microscopic Urinalysis Comment CULTURE INDICATED Culture Results Microbiology Date/Time Source Procedure Growth Status 08/15/17 13:00 Urine Clean Catch Urine Culture Pending Received Administered Medications Medications (Trade) Dose Ordered Sig/Sunil Route PRN Reason Start Time Stop Time Status Last Admin Dose Admin Sodium Chloride (NS Flush) 2 ml BID IV FLUSH 08/13/17 21:00 08/16/17 08:14 Albuterol/ Ipratropium (Duoneb Neb) 1 ampule QID NEB NEB 08/14/17 20:00 08/16/17 08:26 Oxycodone HCl (Roxicodone Intensol Liq) 5 mg Q6H PRN PO pain >5 08/14/17 21:15 08/16/17 08:13 Lactated Ringer's 1,000 ml @ 30 mls/hr Q24H PRN IV SEE LABEL COMMENTS 08/15/17 01:15 08/18/17 01:14 08/15/17 09:50 Piperacillin Sod/ Tazobactam Sod 50 ml @ 100 mls/hr Q6H IV 08/15/17 16:00 08/16/17 08:14 Objective Remarks GENERAL: chronically ill male, lying in bed, complaining of pain in right leg and thirst. SKIN: Warm and dry. bruising noted on extremities. HEAD: Normocephalic. EYES: No injection or drainage. NECK: Supple, trachea midline. CARDIOVASCULAR: +S1/S2 RESPIRATORY: occasional rhonchi. GASTROINTESTINAL: Abdomen with mild distension. EXTREMITIES: No cyanosis NEUROLOGICAL: awake and alert, normal speech. Assessment/Plan Problem List: (1) DVT (deep venous thrombosis) ICD Codes: I82.409 - Acute embolism and thrombosis of unspecified deep veins of unspecified lower extremity Status: Acute Plan: -- was given a dose of Lovenox and coumadin at the rehabilitation center and then sent to emergency room where his stool guaiac test was positive. --IVC filter placement. --underwent EGD, 08/15, no bleeding seen. Assessment 82y/o male with new deep venous thrombosis in the setting of gastrointestinal bleed. 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 Abdominal aortic aneurysm. Chronic obstructive pulmonary disease. Diabetes mellitus. diverticulosis. Hiatal hernia Hyperlipidemia. Hypertension. Skin squamous cell carcinoma. Kidney stones. Coronary artery disease. Plan 1. monitor CBC 2. start regular diet per patient/ request. Attending Statement The exam, history, and the medical decision-making described in the above note were completed with the assistance of the mid-level provider. I reviewed and agree with the findings presented. I attest that I had a aiuw-yv-thpu encounter with the patient on the same day, and personally performed and documented my assessment and findings in the medical record. Patient was seen and examined, vital signs, labs and medications as well as imaging studies were reviewed. His is at bedside and symptom control as well as goals for hospice also discussed with her. The patient reports pain in his legs mostly involving his right lower extremity. He feels tired generally and tells me he is unable to ambulate and has not been able to ambulate for about 2 months. The patient and his tell me they plan to pursue hospice and would prefer being either at hospice care facility or at the hospital with hospice. The does not think she will be able to care for her at home even with hospice. From a hematologic standpoint the patient has a long-standing history of CML and has been on imatinib to which she has responded well for many years. Other hematologic issues include deep venous thrombosis of the lower extremity, he is not on anticoagulation at this time because it appears the family is pursuing end-of-life care and hospice. Should should they change their plans and resent hospice, we can consider putting him on anticoagulation. Problem Qualifiers (1) DVT (deep venous thrombosis): Mira Zepeda Aug 16, 2017 09:56 Jose Manuel Salmon MD Aug 16, 2017 15:19
[2017-08-16] MEDS: SODIUM CHLOR 0.9% 1000 ML INJ 1,000 ML IV SCH ×2 (10:00→23:56)
[2017-08-16 16:41] LABS: AUTOMATED NEUTROPHIL # 11.2 TH/MM3 (1.8-7.7); BASOPHIL # 0.1 TH/MM3 (0-0.2); BASOPHIL % 0.4 % (0.0-2.0); EOSINOPHIL # 0.1 TH/MM3 (0-0.4); EOSINOPHIL % 0.3 % (0.0-4.0); HEMATOCRIT 27.4 % (39.0-51.0); LYMPH % 29.2 % (9.0-44.0); MEAN CELL VOLUME 89.9 FL (80.0-100.0); MEAN CORPUSCULAR HEMOGLOBIN 29.7 PG (27.0-34.0); MEAN PLATELET VOLUME 9.1 FL (7.0-11.0); MONOCYTE # 0.9 TH/MM3 (0-0.9); NEUT % 65.1 % (16.0-70.0); PLATELET COUNT 99 TH/MM3 (150-450); RED BLOOD COUNT 3.04 MIL/MM3 (4.50-5.90); RED CELL DISTRIBUTION WIDTH 17.5 % (11.6-17.2); WHITE BLOOD COUNT 17.2 TH/MM3 (4.0-11.0)
--- NOTE | 2017-08-16 16:52 | HHI.PR ---
Subjective Remarks f/u for sepsis and hypotension patient awake and c/o of heel pain. I reviewed pain medication and he stated he will stick to Roxicodone. his at the bedside. no other complaints. remains afebrile. BP in 80s. Objective Vitals Vital Signs Date Time Temp Pulse Resp B/P (MAP) Pulse Ox O2 Delivery O2 Flow Rate FiO2 08/16/17 15:54 100 Nasal Cannula 3.00 08/16/17 12:00 97.9 79 17 89/52 (64) 93 08/16/17 11:06 80/40 (53) 08/16/17 08:26 93 Nasal Cannula 3.00 08/16/17 08:00 97.9 83 15 86/47 (60) 94 08/16/17 04:00 97.5 79 16 102/62 (75) 99 08/16/17 02:14 20 08/16/17 00:00 72 08/16/17 00:00 96.1 72 16 75/43 (54) 99 08/15/17 20:35 75 08/15/17 20:00 97.4 90/62 (71) I/O 08/15/17 08/15/17 08/15/17 08/16/17 08/16/17 08/16/17 06:59 14:59 22:59 06:59 14:59 22:59 Intake Total 1654 ml 250 ml 460 ml 0 ml Output Total 500 ml 100 ml 400 ml Balance 1154 ml 250 ml 360 ml -400 ml Intake Oral 0 ml 0 ml 0 ml 0 ml IV Total 1654 ml 460 ml Other 250 ml Output Urine Total 500 ml 400 ml Emesis 100 ml # Bowel Movements 1 2 Result Diagram: 08/16/17 1535 08/15/17 0611 Imaging Last Impressions Lower Extremity Ultrasound 08/14/17 0000 Signed Impressions: Service Date/Time: August 10:15 - CONCLUSION: 1. Near-occlusive deep venous thrombosis within the left proximal superficial femoral vein and nonocclusive deep venous thrombus within the left common femoral and peroneal veins. 2. Occlusive deep venous thrombus within the right posterior tibial veins. Max Briggs MD IVC Filter Placement X-Ray 08/14/17 0000 Signed Impressions: Service Date/Time: August 12:20 - CONCLUSION: Uncomplicated inferior vena cava filter placement as above. Ajay Bardales MD Foot X-Ray 08/14/17 0000 Signed Impressions: Service Date/Time: August 13:01 - CONCLUSION: No definite fracture is seen for technique. Johnny Larson MD Chest X-Ray 08/14/17 0000 Signed Impressions: Service Date/Time: August 16:15 - CONCLUSION: Probable skin fold overlapping the left upper chest and slight bibasilar atelectasis. Johnny Larson MD Objective Remarks GENERAL: in NAD but looks chronically ill. SKIN: Sacral wounds noted with wound care nurse present. He also has some skin tears on his shoulder. Bilateral edema and and lower extremity edema HEAD: Normocephalic. EYES: No scleral icterus. No injection or drainage. NECK: Supple, trachea midline. No JVD or lymphadenopathy. CARDIOVASCULAR: Regular rate and rhythm without murmurs, gallops, or rubs. RESPIRATORY: Breath sounds equal bilaterally. No accessory muscle use. GASTROINTESTINAL: Abdomen soft, non-tender, nondistended. MUSCULOSKELETAL: Right foot with an eschar on heel. There is tenderness palpation. He seems to be sensitive to touch in this area. No erythema noted. Medications and IVs Current Medications Hydromorphone HCl (Dilaudid Pf Inj) 0.5 mg ONCE ONCE IVS Last administered on 08/13/17at 15:34; Start 08/13/17 at 15:15; Stop 08/13/17 at 15:16; Status DC Sodium Chloride (NS Flush) 2 ml UNSCH PRN IV FLUSH FLUSH AFTER USING IV ACCESS ; Start 08/13/17 at 16:45 Sodium Chloride (NS Flush) 2 ml BID IV FLUSH Last administered on 08/16/17at 08: 14; Start 08/13/17 at 21:00 Naloxone HCl (Narcan Inj) 0.4 mg UNSCH PRN IV PUSH SEE LABEL COMMENTS; Start at 16:45 Potassium Chloride (KCl) 40 meq ONCE ONCE PO Last administered on 08/13/17at 22: 45; Start 08/13/17 at 20:30; Stop 08/13/17 at 20:32; Status DC Calcium Gluconate 1 gm/Dextrose 110 ml @ 110 mls/hr ONCE ONCE IV Last administered on 08/13/17at 23:03; Start 08/13/17 at 21:00; Stop 08/13/17 at 21:59; Status DC Hydromorphone HCl (Dilaudid Pf Inj) 0.2 mg Q4H PRN IV PUSH pain >5 Last administered on 08/14/17at 10:51; Start 08/13/17 at 20:30; Stop 08/14/17 at 21:10; Status DC Pantoprazole Sodium 80 mg/ Sodium Chloride 35 ml @ 420 mls/hr Q5M ONCE IV Last administered on 08/13/17at 23:28; Start 08/13/17 at 21:32; Stop 08/13/17 at 21: 36; Status DC Pantoprazole Sodium 80 mg/ Sodium Chloride 100 ml @ 10 mls/hr Q10H IV Last administered on 08/14/17at 21:33; Start 08/13/17 at 21:32; Stop 08/15/17 at 15:13; Status DC Dextrose/Sodium Chloride 1,000 ml @ 84 mls/hr [id number] IV Last administered on 08/14/17at 18:42; Start 08/13/17 at 20:45; Stop 08/14/17 at 21:05; Status DC Dextrose (D50w (Vial) Inj) 50 ml UNSCH PRN IV PUSH HYPOGLYCEMIA-SEE COMMENTS; Start 08/13/17 at 20:45; Stop 08/15/17 at 14:05; Status DC Glucagon (Glucagon Inj) 1 mg UNSCH PRN OTHER HYPOGLYCEMIA-SEE COMMENTS; Start 08/13/17 at 20:45; Stop 08/15/17 at 14:05; Status DC Sodium Chloride 500 ml @ 500 mls/hr BOLUS ONCE IV Last administered on at 10:00; Start 08/14/17 at 10:00; Stop 08/14/17 at 10:59; Status DC Potassium Bicarb/ Potassium Chloride (K-Lyte Cl Eff) 50 meq ONCE ONCE PO Last administered on 08/14/17at 12:30; Start 08/14/17 at 10:00; Stop 08/14/17 at 10: 01; Status DC Fentanyl Citrate (fentaNYL INJ) 200 mcg STK-MED ONCE .ROUTE Last administered on 08/14/17at 11:35; Start 08/14/17 at 11:18; Stop 08/14/17 at 11:19; Status DC Iohexol (Omnipaque 350 Inj) 15 ml STK-MED ONCE IVCONTRAST Last administered on 08/14/17at 12:12; Start 08/14/17 at 12:12; Stop 08/14/17 at 12:13; Status DC Furosemide (Lasix Inj) 40 mg BID@,18 IV PUSH ; Start 08/14/17 at 18:00; Stop at 18:00; Status DC Albuterol/ Ipratropium (Duoneb Neb) 1 ampule QID NEB NEB Last administered on 08/16/17at 15:54; Start 08/14/17 at 20:00 Furosemide (Lasix Inj) 20 mg ONCE ONCE IV PUSH Last administered on 08/14/17at 18:38; Start 08/14/17 at 17:30; Stop 08/14/17 at 18:02; Status DC Furosemide (Lasix Inj) 20 mg BID@,18 IV PUSH ; Start 08/15/17 at 09:00 Oxycodone HCl (Roxicodone Intensol Liq) 5 mg Q6H PRN PO pain >5 Last administered on 08/16/17at 08:13; Start 08/14/17 at 21:15 Lactated Ringer's 1,000 ml @ 30 mls/hr Q24H PRN IV SEE LABEL COMMENTS Last administered on 08/15/17at 09:50; Start 08/15/17 at 01:15; Stop 08/18/17 at 01:14 Sodium Chloride 500 ml @ 30 mls/hr [id number] PRN IV SEE LABEL COMMENTS; Start 08/15/17 at 01:15; Stop 08/18/17 at 01:14 Calcium Gluconate 1 gm/Sodium Chloride 110 ml @ 110 mls/hr ONCE ONCE IV Last administered on 08/15/17at 15:36; Start 08/15/17 at 08:30; Stop 08/15/17 at 09:29; Status DC Sodium Chloride 250 ml @ 250 mls/hr BOLUS ONCE IV ; Start 08/15/17 at 10:15; Stop 08/15/17 at 11:14; Status DC Miscellaneous Information ALL NURSING DEPARTME... UNSCH PRN .XX SEE LABEL COMMENTS; Start 08/15/17 at 11:48; Stop 08/16/17 at 11:47; Status DC Sodium Chloride 250 ml @ 250 mls/hr BOLUS ONCE IV ; Start 08/15/17 at 13:30; Stop 08/15/17 at 14:29; Status DC Piperacillin Sod/ Tazobactam Sod 50 ml @ 100 mls/hr Q6H IV Last administered on 08/16/17at 08:14; Start 08/15/17 at 16:00 Sodium Chloride 250 ml @ 250 mls/hr BOLUS ONCE IV Last administered on at 15:23; Start 08/15/17 at 15:00; Stop 08/15/17 at 15:59; Status DC Morphine Sulfate (Morphine Inj) 1 mg ONCE ONCE IV PUSH Last administered on 08/15/17at 15:59; Start 08/15/17 at 15:00; Stop 08/15/17 at 15:01; Status DC Sodium Chloride 1,000 ml @ 70 mls/hr [id number] IV Last administered on 08/16/17at 10:00; Start 08/16/17 at 10:00 A/P Assessment and Plan 82-year-old male history of DVT on anticoagulation who presented with GI bleed GI bleed -Anticoagulation held secondary to active GI bleed. He was on Lovenox and Coumadin at the shelter. Positive guaiac in the ER. -Patient hemoglobin was stable during his hospital course. He had EGD done today in which the nurse stated that she was told it was negative. Still pending report. -Since no active GI bleed will discontinue protonic strip. Hypotension -Patient has been hypotensive during hospital course but stable. No tachycardia. -Chest x-ray negative for any infectious source. Positive leukocytosis that has been stable. Urine cultures gram neg ladonna. I. -Patient was started on Zosyn. -Infectious disease consulted appreciate recommendations. Sepsis -See treatment as above. Lactic acid mildly elevated at 2.5. -Need to be cautious with IV fluids. Patient is edematous but he has also dry. BNP elevated at 500. -patient has not eaten. will start NS IVFs at low rate. Left lower extremity deep femoral vein and popliteal vein thrombosis -Patient was on Lovenox and Coumadin which was held secondary to GI bleed. Mincing Machine Operator consulted. -Status post IVC filter placed on 08/14/2017. Recent history of thrombocytopenia in last admission. -Gleevec held secondary to thrombocytopenia but that was restarted at the rehabilitation center. Platelet at the moment is 163,000 and stable. Hypokalemia/Hypocalcemia -Replenish as needed. Right foot pain since June 05, 2017 from a fall. -X-ray has been negative. Coding Machine Operator consulted reviewed now. Foot pain due to eschar. recommendations given. -Blood pressure too low to give pain medication, but patient wants hospice and everyone is in agreement with hospice. HTN/diabetes/s/p ppm/AICD/CAD s/p LA/CHF latest echo June 26, 2017 reviewed. 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 Otherwise home medication resumed. DVT prophylaxis -Patient has a IVC filter placed. Discharge Planning Very poor prognosis patient and family wants hospice. d/w patient, his and son Esteban Kemp,Olivia Graham MD Aug 16, 2017 16:52
[2017-08-16 17:15] LABS: ALBUMIN 1.1 GM/DL (3.4-5.0); BICARBONATE 29.9 MEQ/L (21.0-32.0); CALCIUM 6.8 MG/DL (8.5-10.1); CALCIUM-PROTEIN CORRECTED 7.9 MG/DL (8.5-10.1); CREATININE 2.89 MG/DL (0.60-1.30)
[2017-08-16 17:23] LABS: BANDS 7 % (0-6); LYMPHOCYTES 27 % (9-44); MONOCYTES 1 % (0-8); NEUTROPHIL # MANUAL DIFF 12.4 TH/MM3 (1.8-7.7); OVALOCYTES 1+ (NORMAL); POLYS (SEG NEUTROPHILS) 65 % (16-70); TARGET CELLS 1+ (NORMAL)
--- NOTE | 2017-08-16 18:05 | HHI.IDPN ---
Note Infectious Disease Note ID COVERAGE. Delayed entry. Patient seen earlier today. Patient is an 82 year old male, came from SN[facility], brought to hospital after he had an abnormal venous doppler results. At the [facility] he was noted to have swelling BLE and had venous doppler which came back (+) for DVT. He also has had vomiting x 2 days in the NH, and some hematemesis. GI is evaluating patient. He underwent placement of IVC filter. Since admission, he has had problem with hypotension and tachycardia. He is afebrile. His WBC is elevated. He complaints of pain in his R foot, which reportedly has been present since May 2018. Infectious Disease consultation has been requested to evaluate patient for possible sepsis. Past Family Social History Allergies: Coded Allergies: No Known Allergies (Verified , 09/19/15) Past Medical History HTN DM CAD s/p ND COPD on home oxygen CKD CML Thrombocytopenia Past Surgical History Lung biopsy Pacemaker placement Heart cath Knee operation Nose surgery Ear surgery Active Ordered Medications Current Medications Medications (Trade) Dose Ordered Sig/Sunil Route PRN Reason Start Time Stop Time Status Last Admin Dose Admin Sodium Chloride (NS Flush) 2 ml UNSCH PRN IV FLUSH FLUSH AFTER USING IV ACCESS 08/13/17 16:45 Sodium Chloride (NS Flush) 2 ml BID IV FLUSH 08/13/17 21:00 08/16/17 08:14 Naloxone HCl (Narcan Inj) 0.4 mg UNSCH PRN IV PUSH SEE LABEL COMMENTS 08/13/17 16:45 Albuterol/ Ipratropium (Duoneb Neb) 1 ampule QID NEB NEB 08/14/17 20:00 08/16/17 15:54 Furosemide (Lasix Inj) 20 mg BID@ IV PUSH 08/15/17 09:00 Oxycodone HCl (Roxicodone Intensol Liq) 5 mg Q6H PRN PO pain >5 08/14/17 21:15 08/16/17 08:13 Lactated Ringer's 1,000 ml @ 30 mls/hr Q24H PRN IV SEE LABEL COMMENTS 08/15/17 01:15 08/18/17 01:14 08/15/17 09:50 Sodium Chloride 500 ml @ 30 mls/hr [id number] PRN IV SEE LABEL COMMENTS 08/15/17 01:15 08/18/17 01:14 Piperacillin Sod/ Tazobactam Sod 50 ml @ 100 mls/hr Q6H IV 08/15/17 16:00 08/16/17 16:00 Sodium Chloride 1,000 ml @ 70 mls/hr [id number] IV 08/16/17 10:00 08/16/17 10:00 Family History Non-contributory to current ID problem Physical Exam Vital Signs Date Time Temp Pulse Resp B/P (MAP) Pulse Ox O2 Delivery O2 Flow Rate FiO2 08/16/17 16:00 98.8 94 16 89/56 (67) 92 08/16/17 15:54 100 Nasal Cannula 3.00 08/16/17 12:00 97.9 79 17 89/52 (64) 93 08/16/17 11:06 80/40 (53) 08/16/17 08:26 93 Nasal Cannula 3.00 08/16/17 08:00 97.9 83 15 86/47 (60) 94 08/16/17 04:00 97.5 79 16 102/62 (75) 99 08/16/17 02:14 20 08/16/17 00:00 72 08/16/17 00:00 96.1 72 16 75/43 (54) 99 08/15/17 20:35 75 08/15/17 20:00 97.4 90/62 (71) Laboratory Tests Test 08/15/17 06:11 08/16/17 15:35 White Blood Count 14.2 TH/MM3 17.2 TH/MM3 Red Blood Count 2.94 MIL/MM3 3.04 MIL/MM3 Hemoglobin 9.0 GM/DL 9.0 GM/DL Hematocrit 26.6 % 27.4 % Mean Corpuscular Volume 90.6 FL 89.9 FL Mean Corpuscular Hemoglobin 30.5 PG 29.7 PG Mean Corpuscular Hemoglobin Concent 33.7 % 33.0 % Red Cell Distribution Width 17.2 % 17.5 % Platelet Count 126 TH/MM3 99 TH/MM3 Mean Platelet Volume 8.4 FL 9.1 FL Hematology Comments Neutrophils (%) (Auto) 65.1 % Lymphocytes (%) (Auto) 29.2 % Monocytes (%) (Auto) 5.0 % Eosinophils (%) (Auto) 0.3 % Basophils (%) (Auto) 0.4 % Neutrophils # (Auto) 11.2 TH/MM3 Lymphocytes # (Auto) 5.0 TH/MM3 Monocytes # (Auto) 0.9 TH/MM3 Eosinophils # (Auto) 0.1 TH/MM3 Basophils # (Auto) 0.1 TH/MM3 CBC Comment AUTO DIFF Differential Total Cells Counted 100 Neutrophils % (Manual) 65 % Band Neutrophils % 7 % Lymphocytes % 27 % Monocytes % 1 % Neutrophils # (Manual) 12.4 TH/MM3 Differential Comment FINAL DIFF MANUAL Platelet Estimate LOW Platelet Morphology Comment NORMAL Target Cells 1+ Ovalocytes 1+ Laboratory Tests Test 08/15/17 06:11 08/15/17 08:45 08/16/17 15:35 Blood Urea Nitrogen 45 MG/DL 58 MG/DL Creatinine 2.53 MG/DL 2.89 MG/DL Random Glucose 149 MG/DL 120 MG/DL Total Protein 4.8 GM/DL 5.0 GM/DL Calcium Level 6.6 MG/DL 6.8 MG/DL Sodium Level 146 MEQ/L 146 MEQ/L Potassium Level 3.6 MEQ/L 3.9 MEQ/L Chloride Level 108 MEQ/L 109 MEQ/L Carbon Dioxide Level 25.3 MEQ/L 29.9 MEQ/L Anion Gap 13 MEQ/L 7 MEQ/L Estimat Glomerular Filtration Rate 25 ML/MIN 21 ML/MIN Protein Corrected Calcium 7.8 MG/DL 7.9 MG/DL Lactic Acid Level 2.4 mmol/L Albumin 1.1 GM/DL Alkaline Phosphatase 172 U/L Aspartate Amino Transf (AST/SGOT) 71 U/L Alanine Aminotransferase (ALT/SGPT) 47 U/L Total Bilirubin 1.0 MG/DL Microbiology Date/Time Source Procedure Growth Status 08/15/17 13:00 Urine Clean Catch Urine Culture - Preliminary Gram Negative Rubio Resulted Physical Exam GENERAL: Patient is an obese, well-developed CM, awake and alert, SKIN: No rash. HEENT: Pupils equal, round and reactive to light. Extraocular movements full and intact. No scleral icterus. NECK: Trachea midline. Supple and not tender, no meningeal signs CARDIOVASCULAR: Regular rate and rhythm. No murmurs, rubs or gallops. RESPIRATORY: Clear to auscultation. ABDOMEN: Soft, non-tender, nondistended. Bowel sounds present. EXTREMITIES: No clubbing, cyanosis. Has more edema in LLE than in RLE. Pressure ulcer at left heel with eschar. NEUROLOGICAL: Awake and alert. Cranial nerves grossly intact. Motor grossly within normal limits. PSYCHIATRIC: cooperative. Imaging Lower Extremity Ultrasound 08/14/17 0000 Signed Impressions: Service Date/Time: August 10:15 - CONCLUSION: 1. Near-occlusive deep venous thrombosis within the left proximal superficial femoral vein and nonocclusive deep venous thrombus within the left common femoral and peroneal veins. 2. Occlusive deep venous thrombus within the right posterior tibial veins. Max Briggs MD IVC Filter Placement X-Ray 08/14/17 0000 Signed Impressions: Service Date/Time: August 12:20 - CONCLUSION: Uncomplicated inferior vena cava filter placement as above. Ajay Bardales MD Foot X-Ray 08/14/17 0000 Signed Impressions: Service Date/Time: August 13:01 - CONCLUSION: No definite fracture is seen for technique. Johnny Larson MD Chest X-Ray 08/14/17 0000 Signed Impressions: Service Date/Time: August 16:15 - CONCLUSION: Probable skin fold overlapping the left upper chest and slight bibasilar atelectasis. Johnny Larson MD IMPRESSION Hypotension, with leukocytosis, elevated lactic acid, UTI - culture jhas gram neg rubio. - ?due to [employer] [place] DVT, high risk for PE Worsening renal funsion, prob due to sepsis, hypotension [employer] [place] DVT, S/P IVC filter GIB RECOMMENDATION Continue Zosyn. Follow C/S Monitor WBC. Monitor progress Gee Pat MD Aug 16, 2017 18:05
[2017-08-17] VITALS (8 sets, daily range): BP systolic 74–102; BP diastolic 48–57; PULSE 73–102; RESP 15–18; TEMP 96.2–98.7; O2SAT 92–96
[2017-08-17] MEDS: PIPERACIL-TAZO 2.25 GM PREMIX 50 ML IV SCH ×4 (03:18→20:37)
[2017-08-17] MEDS: RESP: ALBUTEROL 2.5 MG/IPRATROPIUM 0.5 MG NEB (SCH) NEB ×4 (08:20→20:43)
[2017-08-17] MEDS: SODIUM CHLORIDE 0.9% FLUSH 10 ML FLUSH IV FLUSH SCH ×2 (08:47→20:38)
[2017-08-17] MEDS: FUROSEMIDE 20 MG/2 ML VIAL IV PUSH SCH ×2 (08:47→18:02)
--- NOTE | 2017-08-17 09:43 | RADRPT ---
EXAM DATE/TIME: 08/17/2017 09:34 [facility] COMPARISON: CHEST SINGLE AP, August 14, 2017, 16:15. INDICATIONS : Shortness of breath. MEDICAL HISTORY : Myocardial infarction. CHF. Hypertension. COPD. GERD. Renal disease. SURGICAL HISTORY : Pacemaker. ENCOUNTER: Initial ACUITY: 1 day PAIN SCORE: 0/10 LOCATION: Bilateral chest FINDINGS: Mild perihilar and bibasilar streakiness is noted consistent with pulmonary vascular congestion or in filtrates. Clinical correlation is recommended. The heart is enlarged. Left subclavian AICD has its t ip in the right ventricle. No pneumothorax is noted. CONCLUSION: 1. Mild perihilar and bibasilar streakiness consistent with pulmonary vascular congestion or infiltra nadeem. Clinical correlation is recommended. 2. Stable cardiomegaly. Max Briggs MD on August 17, 2017 at 9:39 Board Certified Radiologist. This report was verified electronically.
--- NOTE | 2017-08-17 09:53 | PD.ONC.PN ---
Subjective Subjective Remarks Afebrile overnight. at bedside. Reporting they are to meet with hospice today when her son arrives. Patient complaining of pain in right leg. About to receive breathing treatment. Objective Data Date Time Temp Pulse Resp B/P (MAP) Pulse Ox O2 Delivery O2 Flow Rate FiO2 08/17/17 08:23 93 Nasal Cannula 5.00 08/17/17 08:00 96.2 86 15 83/56 (65) 93 08/17/17 04:00 98.6 91 18 80/52 (61) 95 08/17/17 00:00 96.8 73 18 74/48 (57) 96 08/16/17 20:00 98.7 95 18 99/52 (68) 93 08/16/17 20:00 96 08/16/17 16:00 98.8 94 16 89/56 (67) 92 08/16/17 15:54 100 Nasal Cannula 3.00 08/16/17 12:00 97.9 79 17 89/52 (64) 93 08/16/17 11:06 80/40 (53) 08/17/17 08/17/17 08/17/17 07:00 15:00 23:00 Intake Total 850 ml Output Total 250 ml Balance 600 ml Result Diagram: 08/16/17 1535 08/16/17 1535 Laboratory Results Laboratory Tests Test 08/16/17 15:35 White Blood Count 17.2 TH/MM3 Red Blood Count 3.04 MIL/MM3 Hemoglobin 9.0 GM/DL Hematocrit 27.4 % Mean Corpuscular Volume 89.9 FL Mean Corpuscular Hemoglobin 29.7 PG Mean Corpuscular Hemoglobin Concent 33.0 % Red Cell Distribution Width 17.5 % Platelet Count 99 TH/MM3 Mean Platelet Volume 9.1 FL Neutrophils (%) (Auto) 65.1 % Lymphocytes (%) (Auto) 29.2 % Monocytes (%) (Auto) 5.0 % Eosinophils (%) (Auto) 0.3 % Basophils (%) (Auto) 0.4 % Neutrophils # (Auto) 11.2 TH/MM3 Lymphocytes # (Auto) 5.0 TH/MM3 Monocytes # (Auto) 0.9 TH/MM3 Eosinophils # (Auto) 0.1 TH/MM3 Basophils # (Auto) 0.1 TH/MM3 CBC Comment AUTO DIFF Differential Total Cells Counted 100 Neutrophils % (Manual) 65 % Band Neutrophils % 7 % Lymphocytes % 27 % Monocytes % 1 % Neutrophils # (Manual) 12.4 TH/MM3 Differential Comment FINAL DIFF MANUAL Platelet Estimate LOW Platelet Morphology Comment NORMAL Target Cells 1+ Ovalocytes 1+ Blood Urea Nitrogen 58 MG/DL Creatinine 2.89 MG/DL Random Glucose 120 MG/DL Total Protein 5.0 GM/DL Albumin 1.1 GM/DL Calcium Level 6.8 MG/DL Alkaline Phosphatase 172 U/L Aspartate Amino Transf (AST/SGOT) 71 U/L Alanine Aminotransferase (ALT/SGPT) 47 U/L Total Bilirubin 1.0 MG/DL Sodium Level 146 MEQ/L Potassium Level 3.9 MEQ/L Chloride Level 109 MEQ/L Carbon Dioxide Level 29.9 MEQ/L Anion Gap 7 MEQ/L Estimat Glomerular Filtration Rate 21 ML/MIN Protein Corrected Calcium 7.9 MG/DL Culture Results Microbiology Date/Time Source Procedure Growth Status 08/15/17 13:00 Urine Clean Catch Urine Culture - Final Escherichia Coli Complete Imaging Studies Last 24 hours Impressions Chest X-Ray 08/17/17 0000 Signed Impressions: Service Date/Time: Thursday, August 17, 2017 09:34 - CONCLUSION: 1. Mild perihilar and bibasilar streakiness consistent with pulmonary vascular congestion or infiltrates. Clinical correlation is recommended. 2. Stable cardiomegaly. Max Briggs MD Administered Medications Medications (Trade) Dose Ordered Sig/Sunil Route PRN Reason Start Time Stop Time Status Last Admin Dose Admin Sodium Chloride (NS Flush) 2 ml BID IV FLUSH 08/13/17 21:00 08/17/17 08:47 Albuterol/ Ipratropium (Duoneb Neb) 1 ampule QID NEB NEB 08/14/17 20:00 08/17/17 08:20 Oxycodone HCl (Roxicodone Intensol Liq) 5 mg Q6H PRN PO pain >5 08/14/17 21:15 08/16/17 08:13 Lactated Ringer's 1,000 ml @ 30 mls/hr Q24H PRN IV SEE LABEL COMMENTS 08/15/17 01:15 08/18/17 01:14 08/15/17 09:50 Piperacillin Sod/ Tazobactam Sod 50 ml @ 100 mls/hr Q6H IV 08/15/17 16:00 08/17/17 08:46 Sodium Chloride 1,000 ml @ 70 mls/hr [id number] IV 08/16/17 10:00 08/16/17 23:56 Objective Remarks GENERAL: chronically ill male supine in bed, resting. on 5L O2 via NC SKIN: Warm and dry. scattered bruising on arms. HEAD: Normocephalic. EYES: No injection or drainage. NECK: Supple, trachea midline. CARDIOVASCULAR: +S1/S2 RESPIRATORY: anterior yates with scattered rhonchi. GASTROINTESTINAL: Abdomen soft, non-tender. EXTREMITIES: No cyanosis NEUROLOGICAL: awake, alert. normal speech. Assessment/Plan Problem List: (1) DVT (deep venous thrombosis) ICD Codes: I82.409 - Acute embolism and thrombosis of unspecified deep veins of unspecified lower extremity Status: Acute Plan: --has IVC filter -- was given a dose of Lovenox and coumadin at the rehabilitation center and then sent to emergency room where his stool guaiac test was positive. --underwent EGD, 08/15, no bleeding seen. Assessment 82y/o male with new deep venous thrombosis in the setting of gastrointestinal bleed. 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 Abdominal aortic aneurysm. Chronic obstructive pulmonary disease. Diabetes mellitus. diverticulosis. Hiatal hernia Hyperlipidemia. Hypertension. Skin squamous cell carcinoma. Kidney stones. Coronary artery disease. Plan 1. monitor CBC 2. await family decision on hospice. will consider starting low dose anticoagulation if family decides to rescind plan to go with hospice and wants to pursue aggressive care. Problem Qualifiers (1) DVT (deep venous thrombosis): Mira Zepeda Aug 17, 2017 09:53
[2017-08-17] MEDS: oxyCODONE HCL ORAL CONC 5 MG/0.25 ML SYRINGE PO PRN ×2 (10:18→21:46)
[2017-08-17] MEDS ORDERED: FUROSEMIDE 20 MG/2 ML VIAL IV PUSH ONE (10:30)
--- NOTE | 2017-08-17 14:50 | HHI.PR ---
Subjective Remarks Follow-up for sepsis and hypotension Patient continues to be hypotensive systolic blood pressure in the 80s. He is now requiring 5 L of oxygen. He denies any shortness of breathing or cough. Patient complaining of the position and wants to be repositioned. He stated that pain on his right foot is better controlled. Patient's is at the bedside during the interview. He remains afebrile. Discussed case with patient's nurse. Objective Vitals Vital Signs Date Time Temp Pulse Resp B/P (MAP) Pulse Ox O2 Delivery O2 Flow Rate FiO2 08/17/17 12:00 96.6 83 17 83/52 (62) 93 08/17/17 08:23 93 Nasal Cannula 5.00 08/17/17 08:00 96.2 86 15 83/56 (65) 93 08/17/17 08:00 93 08/17/17 04:00 98.6 91 18 80/52 (61) 95 08/17/17 00:00 96.8 73 18 74/48 (57) 96 08/16/17 20:00 98.7 95 18 99/52 (68) 93 08/16/17 20:00 96 08/16/17 16:00 98.8 94 16 89/56 (67) 92 08/16/17 15:54 100 Nasal Cannula 3.00 I/O 08/16/17 08/16/17 08/16/17 08/17/17 08/17/17 08/17/17 07:00 15:00 23:00 07:00 15:00 23:00 Intake Total 0 ml 50 ml 1140 ml 850 ml 330 ml Output Total 400 ml 255 ml 250 ml Balance -400 ml 50 ml 885 ml 600 ml 330 ml Intake Oral 0 ml 480 ml 0 ml IV Total 50 ml 660 ml 850 ml 330 ml Output Urine Total 400 ml 255 ml 250 ml # Bowel Movements 2 1 0 Result Diagram: 08/16/17 1535 08/16/17 1535 Imaging Last Impressions Chest X-Ray 08/17/17 0000 Signed Impressions: Service Date/Time: Thursday, August 17, 2017 09:34 - CONCLUSION: 1. Mild perihilar and bibasilar streakiness consistent with pulmonary vascular congestion or infiltrates. Clinical correlation is recommended. 2. Stable cardiomegaly. Max Briggs MD Lower Extremity Ultrasound 08/14/17 0000 Signed Impressions: Service Date/Time: August 10:15 - CONCLUSION: 1. Near-occlusive deep venous thrombosis within the left proximal superficial femoral vein and nonocclusive deep venous thrombus within the left common femoral and peroneal veins. 2. Occlusive deep venous thrombus within the right posterior tibial veins. Max Briggs MD IVC Filter Placement X-Ray 08/14/17 0000 Signed Impressions: Service Date/Time: August 12:20 - CONCLUSION: Uncomplicated inferior vena cava filter placement as above. Ajay Bardales MD Foot X-Ray 08/14/17 0000 Signed Impressions: Service Date/Time: August 13:01 - CONCLUSION: No definite fracture is seen for technique. Johnny Larson MD Objective Remarks GENERAL: in NAD but looks chronically ill. SKIN: Sacral wounds noted, skin tears on his shoulder. Bilateral edema and and lower extremity edema HEAD: Normocephalic. EYES: No scleral icterus. No injection or drainage. NECK: Supple, trachea midline. No JVD or lymphadenopathy. CARDIOVASCULAR: Regular rate and rhythm without murmurs, gallops, or rubs. RESPIRATORY: Breath sounds equal bilaterally. No accessory muscle use. GASTROINTESTINAL: Abdomen soft, non-tender, nondistended. MUSCULOSKELETAL: Right foot with an eschar on heel. no TTP. Medications and IVs Current Medications Hydromorphone HCl (Dilaudid Pf Inj) 0.5 mg ONCE ONCE IVS Last administered on 08/13/17at 15:34; Start 08/13/17 at 15:15; Stop 08/13/17 at 15:16; Status DC Sodium Chloride (NS Flush) 2 ml UNSCH PRN IV FLUSH FLUSH AFTER USING IV ACCESS ; Start 08/13/17 at 16:45 Sodium Chloride (NS Flush) 2 ml BID IV FLUSH Last administered on 08/17/17at 08: 47; Start 08/13/17 at 21:00 Naloxone HCl (Narcan Inj) 0.4 mg UNSCH PRN IV PUSH SEE LABEL COMMENTS; Start at 16:45 Potassium Chloride (KCl) 40 meq ONCE ONCE PO Last administered on 08/13/17at 22: 45; Start 08/13/17 at 20:30; Stop 08/13/17 at 20:32; Status DC Calcium Gluconate 1 gm/Dextrose 110 ml @ 110 mls/hr ONCE ONCE IV Last administered on 08/13/17at 23:03; Start 08/13/17 at 21:00; Stop 08/13/17 at 21:59; Status DC Hydromorphone HCl (Dilaudid Pf Inj) 0.2 mg Q4H PRN IV PUSH pain >5 Last administered on 08/14/17at 10:51; Start 08/13/17 at 20:30; Stop 08/14/17 at 21:10; Status DC Pantoprazole Sodium 80 mg/ Sodium Chloride 35 ml @ 420 mls/hr Q5M ONCE IV Last administered on 08/13/17at 23:28; Start 08/13/17 at 21:32; Stop 08/13/17 at 21: 36; Status DC Pantoprazole Sodium 80 mg/ Sodium Chloride 100 ml @ 10 mls/hr Q10H IV Last administered on 08/14/17at 21:33; Start 08/13/17 at 21:32; Stop 08/15/17 at 15:13; Status DC Dextrose/Sodium Chloride 1,000 ml @ 84 mls/hr [id number] IV Last administered on 08/14/17at 18:42; Start 08/13/17 at 20:45; Stop 08/14/17 at 21:05; Status DC Dextrose (D50w (Vial) Inj) 50 ml UNSCH PRN IV PUSH HYPOGLYCEMIA-SEE COMMENTS; Start 08/13/17 at 20:45; Stop 08/15/17 at 14:05; Status DC Glucagon (Glucagon Inj) 1 mg UNSCH PRN OTHER HYPOGLYCEMIA-SEE COMMENTS; Start 08/13/17 at 20:45; Stop 08/15/17 at 14:05; Status DC Sodium Chloride 500 ml @ 500 mls/hr BOLUS ONCE IV Last administered on at 10:00; Start 08/14/17 at 10:00; Stop 08/14/17 at 10:59; Status DC Potassium Bicarb/ Potassium Chloride (K-Lyte Cl Eff) 50 meq ONCE ONCE PO Last administered on 08/14/17at 12:30; Start 08/14/17 at 10:00; Stop 08/14/17 at 10: 01; Status DC Fentanyl Citrate (fentaNYL INJ) 200 mcg STK-MED ONCE .ROUTE Last administered on 08/14/17at 11:35; Start 08/14/17 at 11:18; Stop 08/14/17 at 11:19; Status DC Iohexol (Omnipaque 350 Inj) 15 ml STK-MED ONCE IVCONTRAST Last administered on 08/14/17at 12:12; Start 08/14/17 at 12:12; Stop 08/14/17 at 12:13; Status DC Furosemide (Lasix Inj) 40 mg BID@09,18 IV PUSH ; Start 08/14/17 at 18:00; Stop at 18:00; Status DC Albuterol/ Ipratropium (Duoneb Neb) 1 ampule QID NEB NEB Last administered on 08/17/17at 11:51; Start 08/14/17 at 20:00 Furosemide (Lasix Inj) 20 mg ONCE ONCE IV PUSH Last administered on 08/14/17at 18:38; Start 08/14/17 at 17:30; Stop 08/14/17 at 18:02; Status DC Furosemide (Lasix Inj) 20 mg BID@,18 IV PUSH ; Start 08/15/17 at 09:00 Oxycodone HCl (Roxicodone Intensol Liq) 5 mg Q6H PRN PO pain >5 Last administered on 08/17/17at 10:18; Start 08/14/17 at 21:15 Lactated Ringer's 1,000 ml @ 30 mls/hr Q24H PRN IV SEE LABEL COMMENTS Last administered on 08/15/17at 09:50; Start 08/15/17 at 01:15; Stop 08/18/17 at 01:14 Sodium Chloride 500 ml @ 30 mls/hr [id number] PRN IV SEE LABEL COMMENTS; Start 08/15/17 at 01:15; Stop 08/18/17 at 01:14 Calcium Gluconate 1 gm/Sodium Chloride 110 ml @ 110 mls/hr ONCE ONCE IV Last administered on 08/15/17at 15:36; Start 08/15/17 at 08:30; Stop 08/15/17 at 09:29; Status DC Sodium Chloride 250 ml @ 250 mls/hr BOLUS ONCE IV ; Start 08/15/17 at 10:15; Stop 08/15/17 at 11:14; Status DC Miscellaneous Information ALL NURSING DEPARTME... UNSCH PRN .XX SEE LABEL COMMENTS; Start 08/15/17 at 11:48; Stop 08/16/17 at 11:47; Status DC Sodium Chloride 250 ml @ 250 mls/hr BOLUS ONCE IV ; Start 08/15/17 at 13:30; Stop 08/15/17 at 14:29; Status DC Piperacillin Sod/ Tazobactam Sod 50 ml @ 100 mls/hr Q6H IV Last administered on 08/17/17at 08:46; Start 08/15/17 at 16:00 Sodium Chloride 250 ml @ 250 mls/hr BOLUS ONCE IV Last administered on at 15:23; Start 08/15/17 at 15:00; Stop 08/15/17 at 15:59; Status DC Morphine Sulfate (Morphine Inj) 1 mg ONCE ONCE IV PUSH Last administered on 08/15/17at 15:59; Start 08/15/17 at 15:00; Stop 08/15/17 at 15:01; Status DC Sodium Chloride 1,000 ml @ 70 mls/hr [id number] IV Last administered on 08/16/17at 23:56; Start 08/16/17 at 10:00; Stop 08/17/17 at 10:30; Status DC Furosemide (Lasix Inj) 20 mg ONCE ONCE IV PUSH Last administered on 08/17/17at 11:00; Start 08/17/17 at 10:30; Stop 08/17/17 at 10:31; Status DC A/P Assessment and Plan 82-year-old male history of DVT on anticoagulation who presented with GI bleed GI bleed -Anticoagulation held secondary to active GI bleed. He was on Lovenox and Coumadin at the [facility] living. Positive guaiac in the ER. -Patient hemoglobin was stable during his hospital course. He had EGD done today in which the nurse stated that she was told it was negative. Still pending report. -Since no active GI bleed will discontinue protonic strip. Hypoxia -Secondary to IV fluids. Patient was placed on low amount IV fluids secondary to hypotension. Since this may compromise his airway due to increased oxygen requirement and chest x-ray showing perihilar and basilar streakiness suggesting pulmonary congestion will need to discontinue IV fluids since patient is a DO NOT RESUSCITATE. And give a dose of IV Lasix. Patient already on oral Lasix. -Continue supplement with oxygen. Hypotension -Patient has been hypotensive during hospital course but stable. No tachycardia. -Chest x-ray negative for any infectious source. Positive leukocytosis that has been stable. Urine cultures growing Escherichia coli sensitive to Zosyn. -Continue Zosyn. Infectious disease following. Sepsis -See treatment as above. Lactic acid mildly elevated at 2.5. -Need to be cautious with IV fluids. Patient is edematous but he has also dry. BNP elevated at 500. -patient has not eaten. DC fluids. See note above. Left lower extremity deep femoral vein and popliteal vein thrombosis -Patient was on Lovenox and Coumadin which was held secondary to GI bleed. [employer] consulted. -Status post IVC filter placed on 08/14/2017. Recent history of thrombocytopenia in last admission. -Gleevec held secondary to thrombocytopenia but that was restarted at the rehabilitation center. Platelet at the moment is 163,000 and stable. Hypokalemia/Hypocalcemia -Replenish as needed. Right foot pain since June 05, 2017 from a fall. -X-ray has been negative. Nps consulted reviewed now. Foot pain due to eschar. recommendations given. -Blood pressure too low to give pain medication, but patient wants hospice and everyone is in agreement with hospice. HTN/diabetes/s/p ppm/AICD/CAD s/p WA/CHF latest echo June 26, 2017 reviewed. 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 Otherwise home medication resumed. DVT prophylaxis -Patient has a IVC filter placed. Discharge Planning Very poor prognosis patient and family wants hospice. d/w patient and patient's . Olivia Kemp MD Aug 17, 2017 14:50
--- NOTE | 2017-08-17 15:29 | HHI.NPPN ---
Subjective History of Present Illness 89 year old with Leukemia, ARF/CKD/Pneumonia, rt heel ulce Objective Data Data 08/17/17 08/18/17 19:00 07:00 Intake Total 330 ml Balance 330 ml IV Total 330 ml Vital Signs Date Time Temp Pulse Resp B/P (MAP) Pulse Ox O2 Delivery O2 Flow Rate FiO2 08/17/17 12:00 96.6 83 17 83/52 (62) 93 08/17/17 08:23 93 Nasal Cannula 5.00 08/17/17 08:00 96.2 86 15 83/56 (65) 93 08/17/17 08:00 93 08/17/17 04:00 98.6 91 18 80/52 (61) 95 08/17/17 00:00 96.8 73 18 74/48 (57) 96 08/16/17 20:00 98.7 95 18 99/52 (68) 93 08/16/17 20:00 96 08/16/17 16:00 98.8 94 16 89/56 (67) 92 08/16/17 15:54 100 Nasal Cannula 3.00 -: 08/16/17 1535 08/16/17 1535 Physical Exam General Appearance: Well Developed, Well Nourished Pulmonary Resp Exam: Crackles, Rhonchi, Decreased Bases Cardiology CV Exam: Regular Gastrointestinal/Abdomen GI Exam: Soft, Bowel Sounds Present Integumentary Skin Exam: Ulcer(s) Extremeties Extremities Exam: Trace Edema Assessment/Plan Problem List: (1) Acute kidney injury ICD Codes: N17.9 - Acute kidney failure, unspecified Status: Acute Plan: doing poorly await hospice admission cr higher Dr. Aj to follow (2) CKD (chronic kidney disease), stage III ICD Codes: N18.3 - Chronic kidney disease, stage 3 (moderate) Status: Chronic Plan: worsening GFR (3) Chronic myelogenous leukemia ICD Codes: C92.10 - Chronic myeloid leukemia, BCR/ABL-positive, not having achieved remission Basim Salmon MD Aug 17, 2017 15:29
[2017-08-18] VITALS: BP 102/61; PULSE 101; RESP 15; TEMP 97.5; O2SAT 96
[2017-08-18 04:00] VITALS: BP 120/61; PULSE 98; RESP 16; TEMP 97.3; O2SAT 93
[2017-08-18] MEDS: PIPERACIL-TAZO 2.25 GM PREMIX 50 ML IV SCH ×3 (04:04→17:50)
[2017-08-18] MEDS: oxyCODONE HCL ORAL CONC 5 MG/0.25 ML SYRINGE PO PRN (06:11)
[2017-08-18 07:44] VITALS: BP 80/49; PULSE 88; RESP 19; TEMP 97.3; O2SAT 90
[2017-08-18] MEDS: SODIUM CHLORIDE 0.9% FLUSH 10 ML FLUSH IV FLUSH SCH (08:27)
[2017-08-18] MEDS: FUROSEMIDE 20 MG/2 ML VIAL IV PUSH SCH ×2 (08:27→17:50)
[2017-08-18] MEDS: RESP: ALBUTEROL 2.5 MG/IPRATROPIUM 0.5 MG NEB (SCH) NEB ×3 (09:06→16:00)
[2017-08-18 09:07] VITALS: O2SAT 92
[2017-08-18] MEDS ORDERED: ASPI81TA23 PO (10:39)
[2017-08-18] MEDS ORDERED: CEFU1TAB18 PO (10:39)
[2017-08-18] MEDS ORDERED: oxyCODONE LIQ PO (10:39)
--- NOTE | 2017-08-18 10:48 | PD.ONC.PN ---
Subjective Subjective Remarks Afebrile overnight. Patient resting in bed. Asking to be left alone. "Let me sleep!" No family members at bedside. Notes from the last 24 hours reviewed, including, hospice note. Objective Data Date Time Temp Pulse Resp B/P (MAP) Pulse Ox O2 Delivery O2 Flow Rate FiO2 08/18/17 09:07 92 Nasal Cannula 4.00 08/18/17 07:44 97.3 88 19 80/49 (59) 90 08/18/17 04:00 97.3 98 16 120/61 (80) 93 08/18/17 00:00 97.5 101 15 102/61 (75) 96 08/17/17 20:43 92 Nasal Cannula 4.00 08/17/17 20:00 93 08/17/17 20:00 97.6 102 15 102/57 (72) 95 08/17/17 16:00 98.7 96 18 88/56 (67) 93 08/17/17 12:00 96.6 83 17 83/52 (62) 93 08/18/17 08/18/17 08/18/17 07:00 15:00 23:00 Intake Total 50 ml 0 ml Output Total 150 ml Balance -100 ml 0 ml Result Diagram: 08/16/17 1535 08/16/17 1535 Culture Results Microbiology Date/Time Source Procedure Growth Status 08/15/17 13:00 Urine Clean Catch Urine Culture - Final Escherichia Coli Complete Administered Medications Medications (Trade) Dose Ordered Sig/Sunil Route PRN Reason Start Time Stop Time Status Last Admin Dose Admin Sodium Chloride (NS Flush) 2 ml BID IV FLUSH 08/13/17 21:00 08/18/17 08:27 Albuterol/ Ipratropium (Duoneb Neb) 1 ampule QID NEB NEB 08/14/17 20:00 08/18/17 09:06 Furosemide (Lasix Inj) 20 mg BID@,18 IV PUSH 08/15/17 09:00 08/18/17 08:27 Oxycodone HCl (Roxicodone Intensol Liq) 5 mg Q6H PRN PO pain >5 08/14/17 21:15 08/18/17 06:11 Piperacillin Sod/ Tazobactam Sod 50 ml @ 100 mls/hr Q6H IV 08/15/17 16:00 08/18/17 08:28 Objective Remarks GENERAL: chronically ill male. He is lying in bed with eyes closed, moaning. Asking to be left alone so he can sleep. no family members at bedside. SKIN: Warm and dry. scattered bruising on arms. HEAD: Normocephalic. EYES: No injection or drainage. NECK: Supple, trachea midline. CARDIOVASCULAR: +S1/S2 RESPIRATORY: occasional rhonchi. GASTROINTESTINAL: Abdomen soft, non-tender. EXTREMITIES: No cyanosis NEUROLOGICAL: awake, but eyes closed. normal speech. Assessment/Plan Problem List: (1) DVT (deep venous thrombosis) ICD Codes: I82.409 - Acute embolism and thrombosis of unspecified deep veins of unspecified lower extremity Status: Acute Plan: 08/18/16: d/w Dr. Kemp, patient planning to go to rehab with hospice today, once it is set up. will cancel labs as plan is still comfort based care only. If patient/family changes mind will re-order labs. --has IVC filter -- was given a dose of Lovenox and Coumadin at the rehabilitation center and then sent to emergency room where his stool guaiac test was positive. --underwent EGD, 08/15, no bleeding seen. Assessment 82y/o male with deep venous thrombosis in the setting of gastrointestinal bleed. 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 Abdominal aortic aneurysm. Chronic obstructive pulmonary disease. Diabetes mellitus. diverticulosis. Hiatal hernia Hyperlipidemia. Hypertension. Skin squamous cell carcinoma. Kidney stones. Coronary artery disease. Attending Statement The exam, history, and the medical decision-making described in the above note were completed with the assistance of the mid-level provider. I reviewed and agree with the findings presented. I attest that I had a [id number] encounter with the patient on the same day, and personally performed and documented my assessment and findings in the medical record. events of this admission reviewed. pt is failure to thrive and have multiple medical problems. It is very unlikely that he willl ever recover from this. Pt is suffering. Pt and family have decided for comfort care with hospice. Extensive d/w pt and family, answered their questions. agree to d/c to hospice [facility]. prognosis is very poor. life expectancy <1 week Problem Qualifiers (1) DVT (deep venous thrombosis): Mira Zepeda Aug 18, 2017 10:48 Fabrice Patel MD Aug 18, 2017 18:46
[2017-08-18 12:00] VITALS: BP 80/53; PULSE 97; RESP 22; TEMP 97; O2SAT 94
--- NOTE | 2017-08-18 13:03 | HHI.DS ---
Discharge Summary Admission Date Aug 13, 2017 at 20:36 Discharge Date: Aug 18, 2017 Admitting Diagnosis DVT, GI bleed (1) E. coli UTI ICD Code: N39.0 - Urinary tract infection, site not specified; B96.20 - Unspecified Escherichia coli [E. coli] as the cause of diseases classified elsewhere Diagnosis: Principal (2) Hypotension ICD Code: I95.9 - Hypotension, unspecified Diagnosis: Principal (3) CHF (congestive heart failure) ICD Code: I50.9 - Heart failure, unspecified Diagnosis: Secondary (4) GI bleed ICD Code: K92.2 - Gastrointestinal hemorrhage, unspecified Diagnosis: Principal Status: Resolved (5) Sepsis ICD Code: A41.9 - Sepsis, unspecified organism Diagnosis: Principal Status: Acute (6) Acute kidney injury ICD Code: N17.9 - Acute kidney failure, unspecified Diagnosis: Principal Status: Acute (7) CKD (chronic kidney disease), stage III ICD Code: N18.3 - Chronic kidney disease, stage 3 (moderate) Diagnosis: Secondary Status: Chronic (8) Right foot ulcer ICD Code: L97.519 - Non-pressure chronic ulcer of other part of right foot with unspecified severity Diagnosis: Secondary (9) Intractable pain ICD Code: R52 - Pain, unspecified Procedures see hospital course Brief History - From Admission History from patient, at the bedside, and ER physician sent by [facility] for positive doppler studies had vomiting x 2 a few days somewhat black in color vomitus no black stool - but was told he had blood in stool c/o of right foot pain - started 06/05/27 - he slipped on water at [employer] then. did not go to hospital then but was admitted here from 06/24/17 to 07/29/17 for sepsis/ GI bleed denies other symptoms, limited historian CBC/BMP: 08/16/17 1535 08/16/17 1535 Significant Findings Laboratory Tests Test 08/16/17 15:35 White Blood Count 17.2 TH/MM3 (4.0-11.0) Red Blood Count 3.04 MIL/MM3 (4.50-5.90) Hemoglobin 9.0 GM/DL (13.0-17.0) Hematocrit 27.4 % (39.0-51.0) Red Cell Distribution Width 17.5 % (11.6-17.2) Platelet Count 99 TH/MM3 (150-450) Neutrophils # (Auto) 11.2 TH/MM3 (1.8-7.7) Lymphocytes # (Auto) 5.0 TH/MM3 (1.0-4.8) Band Neutrophils % 7 % (0-6) Neutrophils # (Manual) 12.4 TH/MM3 (1.8-7.7) Platelet Estimate LOW (NORMAL) Target Cells 1+ (NORMAL) Ovalocytes 1+ (NORMAL) Blood Urea Nitrogen 58 MG/DL (7-18) Creatinine 2.89 MG/DL (0.60-1.30) Random Glucose 120 MG/DL (74-106) Total Protein 5.0 GM/DL (6.4-8.2) Albumin 1.1 GM/DL (3.4-5.0) Calcium Level 6.8 MG/DL (8.5-10.1) Alkaline Phosphatase 172 U/L (45-117) Aspartate Amino Transf (AST/SGOT) 71 U/L (15-37) Sodium Level 146 MEQ/L (136-145) Chloride Level 109 MEQ/L (98-107) Estimat Glomerular Filtration Rate 21 ML/MIN (>89) Protein Corrected Calcium 7.9 MG/DL (8.5-10.1) Imaging Last Impressions Chest X-Ray 08/17/17 0000 Signed Impressions: Service Date/Time: Thursday, August 17, 2017 09:34 - CONCLUSION: 1. Mild perihilar and bibasilar streakiness consistent with pulmonary vascular congestion or infiltrates. Clinical correlation is recommended. 2. Stable cardiomegaly. Max Briggs MD Lower Extremity Ultrasound 08/14/17 0000 Signed Impressions: Service Date/Time: August 10:15 - CONCLUSION: 1. Near-occlusive deep venous thrombosis within the left proximal superficial femoral vein and nonocclusive deep venous thrombus within the left common femoral and peroneal veins. 2. Occlusive deep venous thrombus within the right posterior tibial veins. Max Briggs MD IVC Filter Placement X-Ray 08/14/17 0000 Signed Impressions: Service Date/Time: August 12:20 - CONCLUSION: Uncomplicated inferior vena cava filter placement as above. Ajay Bardales MD Foot X-Ray 08/14/17 0000 Signed Impressions: Service Date/Time: August 13:01 - CONCLUSION: No definite fracture is seen for technique. KMagi Larson MD PE at Discharge GENERAL: in NAD but looks chronically ill. SKIN: Sacral wounds noted, skin tears on his shoulder. Bilateral edema and and lower extremity edema HEAD: Normocephalic. EYES: No scleral icterus. No injection or drainage. NECK: Supple, trachea midline. No JVD or lymphadenopathy. CARDIOVASCULAR: Regular rate and rhythm without murmurs, gallops, or rubs. RESPIRATORY: Breath sounds equal bilaterally. No accessory muscle use. GASTROINTESTINAL: Abdomen soft, non-tender, nondistended. MUSCULOSKELETAL: Right foot with an eschar on heel. no TTP. Pt update on day of discharge f/u for multiple medical conditions. patient had no complaints. He was upset that I woke him up and he wanted me to let him sleep. his son Esteban at the bedside. patient denied any SOB or pain. Esteban stated they are all in agreement with hospice but does not want his father discharge home because his mom cannot take care of him. I relayed the info to case management in regards to this. Hospital Course 82-year-old male history of DVT on anticoagulation who presented with GI bleed GI bleed -Anticoagulation held secondary to active GI bleed. He was on Lovenox and Coumadin at the care home. Positive guaiac in the ER. -Patient hemoglobin was stable during his hospital course. He had EGD done today in which the nurse stated that she was told it was negative. Still pending report. -Since no active GI bleed will discontinue protonic strip. Hypoxia -Secondary to IV fluids. Patient was placed on low amount IV fluids secondary to hypotension. Since this may compromise his airway due to increased oxygen requirement and chest x-ray showing perihilar and basilar streakiness suggesting pulmonary congestion will need to discontinue IV fluids since patient is a DO NOT RESUSCITATE. given extra dose of lasix. -Continue supplement with oxygen. Hypotension -Patient has been hypotensive during hospital course but stable. No tachycardia. -Chest x-ray negative for any infectious source. Positive leukocytosis that has been stable. Urine cultures growing Escherichia coli sensitive to Zosyn. -switch to ceftin but patient is now Hospice. Sepsis -See treatment as above. Lactic acid mildly elevated at 2.5. -Need to be cautious with IV fluids. Patient is edematous but he has also dry. BNP elevated at 500. -patient has not eaten. DC fluids since volume overloaded. See note above. Left lower extremity deep femoral vein and popliteal vein thrombosis -Patient was on Lovenox and Coumadin which was held secondary to GI bleed. Lounge Car Attendant consulted. -Status post IVC filter placed on 08/14/2017. Recent history of thrombocytopenia in last admission. -Gleevec held secondary to thrombocytopenia but that was restarted at the rehabilitation center. Platelet at the moment is 163,000 but trend down during hospital course. Hypokalemia/Hypocalcemia -Replenish as needed. Right foot pain since June 05, 2017 from a fall. -X-ray has been negative. Institutional Aide consulted reviewed now. Foot pain due to eschar. recommendations given. -controlled with Roxicodone HTN/diabetes/s/p ppm/AICD/CAD s/p NC/CHF latest echo June 26, 2017 reviewed. 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 Otherwise home medication resumed. Patient and family wants hospice so discharge to hospice. Pt Condition on Discharge: Deteriorating Discharge Disposition: Discharge to SNF Discharge Time: > 30 minutes Discharge Instructions DIET: Follow Instructions for: As Tolerated, No Restrictions Activities you can perform: Regular-No Restrictions Follow up Referrals: SNF/HALF-WAY/ - Daily New Medications: Aspirin DR (Aspirin EC) 81 Mg Tabdr 81 MG PO DAILY for CAD, #30 TAB 0 Refills Cefuroxime (Ceftin) 250 Mg Tab 500 MG PO DAILY for infection, #10 TAB 0 Refills [oxyCODONE LIQ] () 20 MG/1 ML CONC 5 MG PO Q6H PRN for pain >5, #30 ML 0 Refills Continued Medications: Acetaminophen (Tylenol) 325 Mg Tab 650 MG PO Q4H PRN for PAIN SCALE 1 TO 10, TAB 0 Refills Acetaminophen (Tylenol) 325 Mg Tab 650 MG PO Q4H PRN for FEVER, TAB 0 Refills Albuterol 8.5 GM Inh (Proair Hfa 8.5 GM Inh) 90 Mcg/Act Aer 2 PUFF INH Q4-6H PRN for SHORTNESS OF BREATH, #1 INHALER 108 mcg/actuation Ferrous Sulfate (Ferrous Sulfate) 325 Mg (65 Mg Iron) Tablet 325 MG PO BIDPC for Nutritional Supplement, #60 TAB 0 Refills Ipratropium-Albuterol Neb (Duoneb) 0.5-2.5 Mg/3 Ml Neb 1 NEBULE INH Q6HR NEB for Breathing Treatment, #120 NEBULE 0 Refills Discontinued Medications: Amiodarone (Amiodarone) 200 Mg Tab 200 MG PO DAILY for Regulate Heart Beat, #30 TAB 0 Refills Ascorbic Acid (Ascorbic Acid) 500 Mg Tab 500 MG PO, TAB Aspirin (Aspirin) 325 Mg Tab 325 MG PO DAILY, #30 TAB 0 Refills Bisacodyl Supp (Dulcolax Supp) 10 Mg Supp 10 MG RECTAL DAILY PRN for CONSTIPATION, #12 SUPP 0 Refills Carvedilol (Coreg) 3.125 Mg Tab 3.125 MG PO BID, #60 TAB 0 Refills Enoxaparin Inj (Lovenox Inj) 40 Mg/0.4 Ml Syr 40 MG SQ BID for Blood Clot Prevention, SYRINGE 0 Refills Furosemide (Lasix) 40 Mg Tab 40 MG PO DAILY, #30 TAB 0 Refills Imatinib Mesylate (Gleevec) 100 Mg Tab 400 MG PO DAILY Insulin Lispro (Human) Inj (Humalog Inj) 1,000 Unit/10 Ml Vial 5-25 UNITS SQ ACHS for Blood Sugar Management, #1 VIAL 0 Refills Max dose at bedtime:( )units; sugars < 70,(0)units; sugars 150-199,(5)units; sugars 200-249,(10)units; sugars 250-299,(15)units; sugars 300-349,(20)units; sugars more than 349,(25)units. Magnesium Citrate Liq (Citroma Liq) 300 Ml Liq 300 ML PO DIRECTED, #1 BOTTLE 0 Refills Magnesium Hydroxide Liq (Milk of Magnesia Liq) 400 Mg/5 Ml Susp 30 ML PO DAILY PRN for INDIGESTION OR UPSET STOMACH, #1 BOTTLE 0 Refills Methadone (Methadone) 5 Mg Tab 2.5 MG PO BID for Pain Management, #6 TAB 0 Refills Multiple Vitamin (Multi Vitamin Daily) 1 Tab Tab Nitrofurantoin Macrocrystal (Nitrofurantoin Macrocrystal) 100 Mg Cap 100 MG PO QID for Infection, CAP 0 Refills Oxycodone (Oxycodone) 10 Mg Tab 10 MG PO Q4H PRN for PAIN, TAB 0 Refills Hvxyhjfdu-Cfghdukkmzeds-Tqdsdfmt Topical (Preparation H Topical) 1-0.25-14.4-15 % Cre 1 APPLIC RECTAL QID PRN for ITCHING, TUBE 0 Refills Sennosides-Docusate Sodium (Senna Plus 8.6-50 mg) 8.6 Mg-50 Mg Tab 1 TAB PO BID, #60 TAB 0 Refills Sodium Phosphates (Enema Disposable) 19 Gram-7 Gram/118 Ml Aimee Warfarin (Coumadin) 5 Mg Tab 5 MG PO DAILY for Blood Clot Prevention, #30 TAB 0 Refills Zinc Sulfate (Zinc Sulfate) 220 Mg (50 Mg Zinc) Cap 220 MG PO DAILY for Nutritional Supplement, CAP 0 Refills Olivia Kemp MD Aug 18, 2017 13:03
--- NOTE | 2017-08-18 14:13 | HHI.PR ---
Addendum to Inpatient Note Addendum Reason: Additional Documentation Additional Information ID Xcover for . D/w patient has accepted hospice services and will be discharged today. Will sign off please call back if any change in plan. Rosio Mtz MD Aug 18, 2017 14:13
[2017-08-18 16:00] VITALS: BP 123/80; PULSE 99; RESP 20; TEMP 98.1; O2SAT 95
== END 2017-08-18 19:32 | disposition hospice, inpatient (51) | DRG 252 ==
LOC: NEPC 11:45 → NEDA 16:44 → INTOOBSV 16:44 → N07B 17:14 → OBSVTOIN 20:36
PROVIDERS: ADMIT Family Medicine; ATTEND Family Medicine
PROC: 06H03DZ Insertion of Intraluminal Device into Inferior Vena Cava, Percutaneous Approach (ICD-10-PCS; principal; 2017-08-14)
PROC: B5191ZZ Fluoroscopy of Inferior Vena Cava using Low Osmolar Contrast (ICD-10-PCS; 2017-08-14)
DX: I82.432 Acute embolism and thrombosis of left popliteal vein (principal); A41.9 Sepsis, unspecified organism; N17.9 Acute kidney failure, unspecified; K92.0 Hematemesis; N39.0 Urinary tract infection, site not specified; I50.22 Chronic systolic (congestive) heart failure; I13.0 Hypertensive heart and chronic kidney disease with heart failure and stage 1 through stage 4 chronic kidney disease, or unspecified chronic kidney disease; N18.3 Chronic kidney disease, stage 3 (moderate); C92.10 Chronic myeloid leukemia, BCR/ABL-positive, not having achieved remission; B96.20 Unspecified Escherichia coli [E. coli] as the cause of diseases classified elsewhere; I42.9 Cardiomyopathy, unspecified; D69.6 Thrombocytopenia, unspecified; I82.412 Acute embolism and thrombosis of left femoral vein; E11.22 Type 2 diabetes mellitus with diabetic chronic kidney disease; E83.51 Hypocalcemia; Z99.81 Dependence on supplemental oxygen; J44.9 Chronic obstructive pulmonary disease, unspecified; I25.2 Old myocardial infarction; I25.10 Atherosclerotic heart disease of native coronary artery without angina pectoris; E87.6 Hypokalemia; R19.5 Other fecal abnormalities; G47.33 Obstructive sleep apnea (adult) (pediatric); E78.5 Hyperlipidemia, unspecified; L89.519 Pressure ulcer of right ankle, unspecified stage; L89.619 Pressure ulcer of right heel, unspecified stage; D50.9 Iron deficiency anemia, unspecified; K21.0 Gastro-esophageal reflux disease with esophagitis; R09.02 Hypoxemia; R62.7 Adult failure to thrive; Z51.5 Encounter for palliative care; Z66 Do not resuscitate; Z79.01 Long term (current) use of anticoagulants; Z79.4 Long term (current) use of insulin; Z85.828 Personal history of other malignant neoplasm of skin; Z87.891 Personal history of nicotine dependence; Z95.810 Presence of automatic (implantable) cardiac defibrillator
CPT/HCPCS: 36600; 37191; 71045; 73630; 80048; 80053; 81001; 82805; 82948; 83605; 83735; 83880; 84155; 85007; 85027; 85610; 85730; 86850; 86900; 86901; 87077; 87086; 87186; 93005; 93970; 94640; 94664; 96374; C1769; C1880; C9113; J0610; J1170; J1940; J2270; J2370; J2543; J3010; J7030; J7040; J7042; J7050; J7120; Q9967